=== PATIENT | female | born 1945 | race Caucasian/White ===

== ENCOUNTER 2020-08-23 16:37 | Inpatient (IN) ==
--- OUTSIDE RECORDS SUMMARY | 2020-08-23 16:40 | External Medical Summary | Continuity of Care Document ---
:1945 Author Name Gary Aguirre Address Unavailable Unavailable , Care Team Providers Name Role Phone Hitesh Aguirre Unavailable [email or web address] PCP, UNKNOWN Unavailable Unavailable Problems Active medical history not documented Allergies and Adverse Reactions Allergy history not documented Medications Medications not documented Procedures Procedures not documented Immunizations Immunizations not documented Plan of Treatment Planned Observations Planned Goals not documented Results No Known Results Results not documented
[2020-08-23 17:19] LABS: Basophils # (auto) 0.01 K/uL (0-0.2); Basophils % (auto) 0.1 %; Eosinophils # (auto) 0.08 K/uL (0-0.5); Eosinophils % (auto) 1.1 %; Hematocrit (blood only) 42.7 % (37-47); Hemoglobin 13.8 g/dL (12.0-16.0); Immature Granulocytes # (auto) 0.01 K/uL (0.00-0.02); Immature Granulocytes % (auto) 0.1 %; Lymphocytes # (auto) 1.56 K/uL (1.2-3.4); Lymphocytes % (auto) 22.2 %; Mean Corpuscular Hemoglobin 28.5 pg (25-34); Mean Corpuscular Hgb Conc 32.3 g/dL (32-36); Mean Corpuscular Volume 88.2 fL (80-100); Mean Platelet Volume 9.5 fL (7.4-10.4); Monocytes # (auto) 0.52 K/uL (0.11-0.59); Monocytes % (auto) 7.4 %; Neutrophils # (auto) 4.85 K/uL (1.4-6.5); Neutrophils % (auto) 69.1 %; Platelet Count 211 K/uL (130-400); RDW Coefficient of Variation 13.8 % (11.5-14.5); RDW Standard Deviation 44.6 fL (36.4-46.3); Red Blood Count 4.84 M/uL (4.2-5.4); White Blood Count 7.03 K/uL (4.8-10.8)
[2020-08-23 17:27] LABS: Alanine Aminotransferase 19 U/L (12-78); Albumin Level 3.9 gm/dl (3.4-5.0); Aspartate Aminotransferase 21 U/L (15-37); BUN Creatinine Ratio 24.4 (10-20); Blood Urea Nitrogen 18 mg/dl (7-18); Calcium 9.5 mg/dl (8.5-10.1); Carbon Dioxide 29 mmol/L (21-32); Chloride 107 mmol/L (98-107); Est GFR (African American) 95.6; Est GFR (Non-African American) 82.5; Glucose 97 mg/dl (70-99); Magnesium 1.9 mg/dl (1.8-2.4); Potassium 3.8 mmol/L (3.5-5.1); Sodium 142 mmol/L (136-145)
[2020-08-23 17:37] LABS: Albumin Globulin Ratio 1.3 (0.9-2); Alkaline Phosphatase 83 U/L (45-117); Bilirubin,Total 0.6 mg/dl (0.2-1); Globulin 3.1 gm/dl (2.5-4.0); Thyroid Stimulating Hormone 0.352 uIu/ml (0.300-4.500); Troponin I < 0.015 ng/ml (0-0.045)
--- NOTE | 2020-08-23 18:08 | Emergency Department Note ---
Impression & Plan Dizziness, Fall, Closed compression fracture of thoracic vertebra ED Provider Note INFORMANT: Patient ED PROVIDER(S): Mark Wilkins MD CHIEF COMPLAINT: Fall PLAN: Disposition: Admitted Condition: Good MEDICAL DECISION MAKING: Patient presented to emerge department because of a fall. She got dizzy when sh e got up. She fell backwards and landed on her back. She complains of thoracic back pain. The patient underwent a work-up. Her head CT was negative. Her CT scan of her thoracic spine was concerning for a T4 fracture without any cord related issues. ECG revealed a normal sinus rhythm. The patient's laboratory testing was unremarkable. The patient was treated with IV Dilaudid and Zofran. She was observed. She was feeling better. She was unsteady and required help from nursing getting up. The patient lives alone. She has stairs in her house to get to her bathroom. I discussed conservative management in the hospital due to the dizziness, fall and thoracic fracture. The patient felt comfortable. Her sister was very much in support. I did consult with of the [facility] service. The patient was evaluated for further management. Triage Nursing notes reviewed and agree them. Additional history obtained from patient's sister. Vital Signs: reviewed and remarkable for no significant abnormalities Differential diagnosis: Back contusion, compression fracture, rib fracture, benign positional vertigo, dehydration, hypovolemia, anemia, tumor, infection, hypoglycemia, electrolyte abnormalities, cardiac sources, intracerebral event, toxicologic, neurologic, as well as other pathologies. Diagnostics interpreted by me: ECG: Rate:70 Rhythm:Normal sinus [place]:Normal QRS:Normal ST segements:No elevation or depression Other:No PACs or PVCs Cardiac Monitoring: Cardiac monitoring ordered by me: The patient was placed on continuous cardiac monitoring and observed. It revealed a normal sinus rhythm at 75 beats per minute without ectopy or evidence of dysrhythmia. Imaging studies: Head CT: A noncontrast CT scan of the head was performed and was negative for tumor, fracture, intracranial hemorrhage, or other acute pathology. CT scan of the thoracic spine reveals a nondisplaced T4 compression fracture. Consultation(s): [facility] service HPI: The patient is a 75 year old female who presents to the Emergency Room with complaints of a fall. This started this afternoon and is from getting dizzy after standing up. The patient also notes the following associated symptoms, mild dizziness which resolved, low thoracic back pain. The patient has taken no medication for relieving factors. Current pain is rated as 4/10. Pt denies LOC, head injury, headache, fevers, chills, diaphoresis, visual changes, neck pain, chest pain, breathing difficulties, nausea, vomiting, abdominal pain, back pain, melena, hematochezia, urinary symptoms, numbness, weakness, lymphadenopathy, rash, or other complaints. ROS: See above HPI for pertinent positives & negatives. A total of 10 systems reviewed and were otherwise negative. PAST MEDICAL HISTORY:See Below, CVA, diabetes PAST SURGICAL HISTORY:See Below, FAMILY HISTORY:See Below SOCIAL HISTORY:See Below, lives alone HOME MEDICATIONS:See Below ALLERGIES:See Below VITALS:See Below PHYSICAL EXAMINATION: GENERAL: Awake, alert, uncomfortable-appearing, in no distress HENT: Normocephalic, atraumatic. Oropharynx unremarkable. EYES: Normal conjunctiva. Sclera non-icteric. NECK: Inspection normal. Non-tender. Supple. No nuchal rigidity. FROM. No masses. RESPIRATORY: Clear to auscultation. No wheezes. No rales. Normal respiratory effort. CARDIAC: Normal rate. Normal rhythm. No murmurs. No rubs. Extremities warm and well perfused. Pulses equal. No JVD. GI: Soft, non-distended. No tenderness to palpation. No rebound or guarding. No masses. RECTAL: Deferred. MUSCULOSKELETAL: Atraumatic. Chest examination reveals no tenderness. The back i s symmetrical on inspection without obvious abnormality. There is low midline thoracic tenderness and also right paraspinal thoracic tenderness. There is no CVA tenderness to palpation. No joint edema. LOWER EXTREMITIES: Calves are equal size bilaterally and non-tender. No edema. No discoloration. NEURO: Normal sensorium. No sensory or motor deficits noted. SKIN: No rash or jaundice noted. 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 Hyperlipidemia Hypothyroidism Macular degeneration Stroke (cerebrum) Uterine leiomyoma Surgical History History of cataract extraction with lens replacement b/l History of colonoscopy History of tubal ligation Family History Sister Diabetes Father Cancer Lung Diabetes Macular degeneration Mother Diabetes Macular degeneration Social History (Updated 08/23/20 @ 21:23 by Linda Ortega PA-C) Smoking Status: Never smoker Hx Alcohol Use: No Hx Substance Use: No Preferred Language: Azeri marital status: / Current Living Situation: Alone Feels Safe at Home: Yes Allergies Allergies Allergy/AdvReac Type Severity Reaction Status Date / Time simvastatin Allergy Unknown CAN'T Verified 08/23/20 19:33 REMEMBER Sulfa (Sulfonamide Allergy Unknown CAN'T Verified 08/23/20 19:33 Antibiotics) REMEMBER Home Meds Home Medications Medication Instructions Recorded Confirmed atorvastatin 40 mg PO HS 08/23/20 08/23/20 clonazepam 0.5 - 1 mg PO DAILY PRN 08/23/20 08/23/20 clopidogrel 75 mg PO DAILY 08/23/20 08/23/20 fluoride (sodium) [SF 5000 Plus] 1 applic DENTAL DAILY 08/23/20 08/23/20 fluoxetine 40 mg PO DAILY 08/23/20 08/23/20 gabapentin 300 mg PO HS 08/23/20 08/23/20 levothyroxine 112 mcg PO DAILYBB 08/23/20 08/23/20 lisinopril 5 mg PO DAILY 08/23/20 08/23/20 lorazepam 1 mg PO BID PRN 08/23/20 08/23/20 metformin 1,000 mg PO BIDM 08/23/20 08/23/20 triamcinolone acetonide 1 applic TOPICAL BID PRN 08/23/20 08/23/20 vit C,T-Af-nqqul-lutein-zeaxan 1 tab PO BID 08/23/20 08/23/20 [PreserVision AREDS-2] Results & Data (ED) Vital Signs Vital Signs - 24 hr 08/23/20 17:06 08/23/20 19:00 08/23/20 19:18 Temperature 36.9 C Temperature Source Oral Pulse Rate 69 Pulse Rate [Apical] 68 Respiratory Rate 18 18 Blood Pressure 171/82 H Blood Pressure [Right Arm] 125/75 Blood Pressure Mean 111 Blood Pressure Mean [Right Arm] 91 Pulse Oximetry 97 96 98 Oxygen Delivery Method Room Air Room Air Room Air Sepsis Recent Fever Within 48 Hours No Sepsis New/Unexplained Change in Mental Status No Sepsis Action Taken by Nursing No Action Required 08/23/20 21:11 08/23/20 22:19 Temperature Temperature Source Pulse Rate Pulse Rate [Apical] 72 66 Respiratory Rate 18 18 Blood Pressure Blood Pressure [Right Arm] 123/80 113/92 Blood Pressure Mean Blood Pressure Mean [Right Arm] 94 99 Pulse Oximetry 94 94 Oxygen Delivery Method Room Air Room Air Sepsis Recent Fever Within 48 Hours Sepsis New/Unexplained Change in Mental Status Sepsis Action Taken by Nursing Laboratory Data Result diagrams: 08/23/20 16:58 08/23/20 16:58 Lab Results 08/23/20 08/23/20 Range/Units 16:58 16:58 WBC 7.03 (4.8-10.8) K/uL RBC 4.84 (4.2-5.4) M/uL Hgb 13.8 (12.0-16.0) g/dL Hct 42.7 (37-47) % MCV 88.2 (80-100) fL MCH 28.5 (25-34) pg MCHC 32.3 (32-36) g/dL RDW Std Deviation 44.6 (36.4-46.3) fL RDW Coeff of Teresita 13.8 (11.5-14.5) % Plt Count 211 (130-400) K/uL MPV 9.5 (7.4-10.4) fL Immature Gran % (Auto) 0.1 % Neut % (Auto) 69.1 % Lymph % (Auto) 22.2 % [place] % (Auto) 7.4 % Eos % (Auto) 1.1 % Baso % (Auto) 0.1 % Neut # (Auto) 4.85 (1.4-6.5) K/uL Lymph # (Auto) 1.56 (1.2-3.4) K/uL [place] # (Auto) 0.52 (0.11-0.59) K/uL Eos # (Auto) 0.08 (0-0.5) K/uL Baso # (Auto) 0.01 (0-0.2) K/uL Immature Gran # (Auto) 0.01 (0.00-0.02) K/uL Sodium 142 (136-145) mmol/L Potassium 3.8 (3.5-5.1) mmol/L Chloride 107 (98-107) mmol/L Carbon Dioxide 29 (21-32) mmol/L Anion Gap 6.0 (3-11) BUN 18 (7-18) mg/dl Creatinine 0.72 (0.6-1.2) mg/dl Est Cr Clr Drug Dosing 74.0 ml/min Est GFR ( Amer) 95.6 Est GFR (Non-Af Amer) 82.5 BUN/Creatinine Ratio 24.4 H (10-20) Glucose 97 (70-99) mg/dl Calcium 9.5 (8.5-10.1) mg/dl Magnesium 1.9 (1.8-2.4) mg/dl Total Bilirubin 0.6 (0.2-1) mg/dl AST 21 (15-37) U/L ALT 19 (12-78) U/L Alkaline Phosphatase 83 (45-117) U/L Troponin I < 0.015 (0-0.045) ng/ml Total Protein 7.0 (6.4-8.2) gm/dl Albumin 3.9 (3.4-5.0) gm/dl Globulin 3.1 (2.5-4.0) gm/dl Albumin/Globulin Ratio 1.3 (0.9-2) TSH 0.352 (0.300-4.500) uIu/ml Administered Medications Hydromorphone HCl (Hydromorphone Inj 0.5 Mg/0.5 Ml Syr) 0.5 mg IV Q15M PRN PRN Reason: Pain Stop: 09/06/20 19:00 Last Admin: 08/23/20 19:17 Dose: 0.5 mg Documented by: [id number] Discontinued Medications Ondansetron HCl (Ondansetron Inj 2 Mg/Ml 2 Ml Vial) 4 mg IV NOW STA Stop: 08/23/20 19:02 Last Admin: 08/23/20 19:17 Dose: 4 mg Documented by: [id number] Discharge Plan Visit Data Chief Complaint: Fall Stated Complaint: FALL, LOWER BACK PAIN ED Provider: Mark Wilkins Discharge Problem: Dizziness, Fall, Closed compression fracture of thoracic vertebra Forms Stand Alone Forms: My [facility] Prescriptions Prescriptions: No Action fluoxetine 40 mg Capsule 40 mg PO DAILY RF: 0 atorvastatin 40 mg Tablet 40 mg PO HS RF: 0 clonazepam 0.5 mg Tablet 0.5 - 1 mg PO DAILY PRN (Reason: RESTLESS LEGS) RF: 0 clopidogrel 75 mg Tablet 75 mg PO DAILY RF: 0 triamcinolone acetonide 0.1 % Ointment 1 applic TOPICAL BID PRN (Reason: Skin Irritation) RF: 0 gabapentin 300 mg Capsule 300 mg PO HS RF: 0 lisinopril 5 mg Tablet 5 mg PO DAILY RF: 0 lorazepam 1 mg Tablet 1 mg PO BID PRN (Reason: Anxiety) RF: 0 metformin 500 mg Tablet Extended Release 24 Hr 1,000 mg PO BIDM RF: 0 levothyroxine 112 mcg Tablet 112 mcg PO DAILYBB RF: 0 fluoride (sodium) [SF 5000 Plus] 1.1 % Cream 1 applic DENTAL DAILY RF: 0 PreserVision AREDS-2 [id number] sh-aoax-sm-mg Capsule 1 tab PO BID RF: 0
--- NOTE | 2020-08-23 18:26 | CT Scan Report ---
CT OF THE HEAD WITHOUT CONTRAST CLINICAL HISTORY: Fall. Dizziness. COMPARISON STUDY: Head CT April 16, 2018. CT DOSE: 614.27 mGy.cm TECHNIQUE: Helical axial images of the head were obtained without IV contrast. Automated exposure con trol was utilized for the study. A dose lowering technique was utilized adhering to the principles o f ALARA. FINDINGS: No acute intracranial hemorrhage, midline shift or mass effect is present. Ventricular syst em is normal. Basilar cisterns are patent. There are no extra-axial collections. Old posterior left M CA territory infarct is noted. There are no findings to suggest acute dural sinus thrombosis or acute territorial infarct. Linear hyperdensity within a left sylvian branches unchanged. This is chronic. There is no calvarial fracture. There is a right scalp sebaceous cyst. IMPRESSION: 1. No acute intracranial findings. Old posterior left MCA territory infarct. 2. No calvarial fracture. ACT 112: Negative or not required by law. Electronically signed by: Pedro Dorman M.D. 08/23/2020 6:24 PM
--- NOTE | 2020-08-23 18:37 | CT Scan Report ---
CT OF THE THORACIC SPINE CLINICAL HISTORY: fall, lower thoracic and right paraspinal TTP COMPARISON STUDY: No previous studies for comparison. TECHNIQUE: Helical axial images of the thoracic spine were obtained. Sagittal and coronal reconstru ctions were viewed. Automated exposure control was utilized for the study. A dose lowering techniqu e was utilized adhering to the principles of ALARA. FINDINGS: Bilateral renal calculi measure up to 5 mm. There are gallstones within the gallbladder. Th ere is no evidence for acute cholecystitis. Visual portions of the lungs are unremarkable. There is d ilatation of the ascending aorta, measuring 4.3 cm. There are calcified thoracic lymph nodes. No acut e fractures are identified within visualized portions of the posterior ribs. There is extensive anter ior osteophytosis of the thoracic spine. Central canal and neural foramen are suboptimally assessed b y CT. There is a horizontal nondisplaced fracture through the mid aspect of the T4 vertebral body. No extension through the posterior elements is identified on this examination. This fracture is probabl y acute. No additional acute thoracic spine fractures are noted. There are no suspicious osseous lesi ons. IMPRESSION: 1. Nondisplaced horizontal fracture through the T4 vertebral body, likely acute. No extension into th e posterior elements. 2. Extensive anterior osteophytosis of the thoracic spine. 3. Ectatic ascending aorta, measuring 4.3 cm. 4. Bilateral nephrolithiasis. 5. Cholelithiasis. ACT 112: Negative or not required by law. Electronically signed by: Pedro Dorman M.D. 08/23/2020 6:36 PM
--- NOTE | 2020-08-23 18:51 | XRay Report ---
XR chest 1V portable CLINICAL HISTORY: weakness COMPARISON STUDY: Chest radiograph April 15, 2018. FINDINGS: Lung volumes are normal. Lungs are clear. There is no pneumothorax or pleural effusion. Mil d cardiomegaly is unchanged. Mediastinal contours are normal. There is no evidence for pulmonary shea a. There is probable calcific tendinitis of the left rotator cuff. IMPRESSION: No acute cardiopulmonary findings. No change in appearance of the chest. ACT 112: Negative or not required by law. Electronically signed by: Pedro Dorman M.D. 08/23/2020 6:50 PM
[2020-08-23] MEDS ORDERED: HYDROmorphone INJ 0.5 MG/0.5 ML SYR IV PRN (19:01)
[2020-08-23] MEDS ORDERED: ONDANSETRON INJ 2 MG/ML 2 ML VIAL IV STA (19:01)
[2020-08-23] MEDS ORDERED: NORMOSOL-R 1,000 ML IV ONE (20:38)
--- NOTE | 2020-08-23 21:26 | History & Physical Report ---
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 Pt was seen and examined in collaboration with Dr. Crane. I performed detailed history, med reconciliation and physical exam. Please see Dr. Crane addendum for details regarding assessment and plan. (4) HTN (hypertension): Blood pressure stable on lisinopril Check orthostatic blood pressures (5) History of CVA (cerebrovascular accident): hx of L MCA CVA with residual memory deficit, word finding continue plavix and statin (6) Diabetes: Last A1c 5.8 on 07/16/2020 Hold metformin Insulin protocol per Dr. Crane (7) Hypothyroidism: Continue levothyroxine (8) Depression: Continue Prozac and as needed lorazepam Patient with depression and anxiety (9) DVT prophylaxis: DVT ppx: Per Dr. Crane Disposition: per Dr. Crane Follow up: PCP Dr. Clifford upon discharge DNR History of Present Illness Chief Complaint: Fall prior to arrival. 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 She was sitting on the toilet whenever she stood up, turned and was trying to shut the window when she got lightheaded and dizzy and fell backwards on her back. She denies hitting her head and denies LOC. She states earlier today when she was sitting on the couch prior to going to the bathroom she also was lightheaded and, "woozy," when she went to stand up. She denies any other recent falls. She denies any recent illness. She denies fever, chills, sweats, chest pain, shortness breath, cough, hemoptysis, nausea, vomiting, diarrhea, abdominal pain, change in bowel or urinary habits. She denies any diaphoresis, nausea, chest pain, shortness with or palpitations associated with her lightheadedness. Currently she denies any pain sitting still. Pain is mostly whenever she moves. "After receiving pain medications I feel quite well." Overall she has a poor appetite. She does live alone. Her daughter is at bedside. Her daughter does elicit she has a prior history of CVA and does have some word finding difficulty and memory difficulty but otherwise no residual deficit. In ED patient made hemodynamically stable. CBC and CMP were generally unremarkable, mild elevation in BUN/creatinine ratio to 24.4. Thoracic CT revealed nondisplaced horizontal fracture through the T4 vertebral body, likely acute, extensive anterior osteophytosis of the thoracic spine, ectatic ascending aorta measuring 4.3 cm, cholelithiasis. Head CT was negative for any acute findings, old posterior left MCA CVA infarct noted. Chest x-ray revealed no acute cardiopulmonary findings. Allergies Allergy/AdvReac Type Severity Reaction Status Date / Time simvastatin Allergy Unknown CAN'T Verified 08/23/20 19:33 REMEMBER Sulfa (Sulfonamide Allergy Unknown CAN'T Verified 08/23/20 19:33 Antibiotics) REMEMBER Home Medications Home Medications Medication Instructions Recorded Confirmed Type atorvastatin 40 mg PO HS 08/23/20 08/23/20 History clonazepam 0.5 - 1 mg PO DAILY PRN 08/23/20 08/23/20 History clopidogrel 75 mg PO DAILY 08/23/20 08/23/20 History fluoride (sodium) [SF 5000 Plus] 1 applic DENTAL DAILY 08/23/20 08/23/20 History fluoxetine 40 mg PO DAILY 08/23/20 08/23/20 History gabapentin 300 mg PO HS 08/23/20 08/23/20 History levothyroxine 112 mcg PO DAILYBB 08/23/20 08/23/20 History lisinopril 5 mg PO DAILY 08/23/20 08/23/20 History lorazepam 1 mg PO BID PRN 08/23/20 08/23/20 History metformin 1,000 mg PO BIDM 08/23/20 08/23/20 History triamcinolone acetonide 1 applic TOPICAL BID PRN 08/23/20 08/23/20 History vit C,F-Ke-hlfbw-lutein-zeaxan 1 tab PO BID 08/23/20 08/23/20 History [PreserVision AREDS-2] Past Med/Surg History Medical History Anxiety Depression Diabetes Diverticulosis History of CVA (cerebrovascular accident) 2018 L MCA Hyperlipidemia Hypothyroidism Macular degeneration Stroke (cerebrum) Uterine leiomyoma Surgical History History of cataract extraction with lens replacement b/l History of colonoscopy History of tubal ligation Family History Sister Diabetes Father Cancer Lung Diabetes Macular degeneration Mother Diabetes Macular degeneration Social History (Updated 08/23/20 @ 21:23 by Linda Ortega PA-C) Smoking Status: Never smoker Hx Alcohol Use: No Hx Substance Use: No Preferred Language: Iraqi Communication Ability: Effective Beliefs That Will Affect Care: None marital status: / Current Living Situation: Alone Feels Safe at Home: Yes Assistive Devices: None Review of Systems Review of Systems: All systems reviewed & are unremarkable except as noted in HPI & below Physical Exam Physical Exam: Constitutional: WD/WN, vitals as above, NAD, sitting up in bed, pleasant, conversing easily Head: Normocephalic, Atraumatic Eyes: PERRL, conjunctivae normal, anicteric sclerae ENMT: external ear and nose normal, oropharynx normal Neck: trachea midline, no thyromegaly normal visual inspection Respiratory: normal respiratory effort, lungs clear to auscultation, no wheeze, rales, rhonchi. Normal insp/exp effort, no accessory muscle use Cardiovascular: RRR, 2/6 CLAUS noted LUSB, no edema Vessels: no JVD or carotid bruit Chest: normal inspection of chest Abdomen: normal bowel sounds, soft, nontender, no hepatosplenomegaly Musculoskeletal: no cyanosis or clubbing, extremities motor strength 5/5, pain to palpation along thoracic vertebral processes Skin: no rashes, warm and dry normal turgor Neurologic: PERRL, EOMI, accommodation nl, no face palsy, no dysarthria CN's II-XI intact bilaterally and moves all extremities Psychiatric: A+Ox3, euthymic affect Lymphatic: no cervical or axillary lymphadenopathy : deferred Results & Data Results & Data (MN) Vital Signs (Past 12 Hours) Vital Signs Temp Pulse Pulse Resp BP BP Pulse Ox 08/23/20 21:11 72 18 123/80 94 08/23/20 19:18 68 18 125/75 98 08/23/20 19:00 96 08/23/20 17:06 36.9 C 69 18 171/82 H 97 Laboratory Results Short CBC 08/23/20 Range/Units 16:58 WBC 7.03 (4.8-10.8) K/uL Hgb 13.8 (12.0-16.0) g/dL Hct 42.7 (37-47) % Plt Count 211 (130-400) K/uL BMP 08/23/20 16:58 Sodium 142 Potassium 3.8 Chloride 107 Carbon Dioxide 29 BUN 18 Creatinine 0.72 Glucose 97 Calcium 9.5 Cardiac Enzymes 08/23/20 Range/Units 16:58 Troponin I < 0.015 (0-0.045) ng/ml Liver Function 08/23/20 Range/Units 16:58 Total Bilirubin 0.6 (0.2-1) mg/dl AST 21 (15-37) U/L ALT 19 (12-78) U/L Alkaline Phosphatase 83 (45-117) U/L Albumin 3.9 (3.4-5.0) gm/dl Diagnostic Findings Thoracic Spine CT: FINDINGS: Bilateral renal calculi measure up to 5 mm. There are gallstones within the gallbladder. There is no evidence for acute cholecystitis. Visual portions of the lungs are unremarkable. There is dilatation of the ascending aorta, measuring 4.3 cm. There are calcified thoracic lymph nodes. No acute fractures are identified within visualized portions of the posterior ribs. There is extensive anterior osteophytosis of the thoracic spine. Central canal and neural foramen are suboptimally assessed by CT. There is a horizontal nondispla alexa fracture through the mid aspect of the T4 vertebral body. No extension through the posterior elements is identified on this examination. This fracture is probably acute. No additional acute thoracic spine fractures are noted. There are no suspicious osseous lesions. IMPRESSION: 1. Nondisplaced horizontal fracture through the T4 vertebral body, likely acute. No extension into the posterior elements. 2. Extensive anterior osteophytosis of the thoracic spine. 3. Ectatic ascending aorta, measuring 4.3 cm. 4. Bilateral nephrolithiasis. 5. Cholelithiasis. Head CT: IMPRESSION: 1. No acute intracranial findings. Old posterior left MCA territory infarct. 2. No calvarial fracture. CXR: IMPRESSION: No acute cardiopulmonary findings. No change in appearance of the chest. Medications Administered Hydromorphone HCl (Hydromorphone Inj 0.5 Mg/0.5 Ml Syr) 0.5 mg IV Q15M PRN PRN Reason: Pain Stop: 09/06/20 19:00 Last Admin: 08/23/20 19:17 Dose: 0.5 mg Documented by: [id number] Discontinued Medications Ondansetron HCl (Ondansetron Inj 2 Mg/Ml 2 Ml Vial) 4 mg IV NOW STA Stop: 08/23/20 19:02 Last Admin: 08/23/20 19:17 Dose: 4 mg Documented by: [id number] ECG Rate (beats per minute): 70 Rhythm: normal sinus Code Status & VTE Plan Code Status DNR/DNI VTE Prophylaxis Plan VTE Prophylaxis will be ordered: Yes Supervising Physician Co-Signing Physician Notes IM ATTENDING : Patient seen and examined. History obtained from patient, family, and records. Preceding documentation by Ms. Linda Ortega PA-C reviewed. FINAL ASSESSMENT AND PLAN as follows : Near syncope/dizziness possibly secondary to orthostasis Rule out cardiac dysfunction given appreciable murmur on auscultation Thoracic vertebral fracture secondary to fall Hypertension, BP currently stable Hyperlipidemia on statin Rx History CVA as per records Hypothyroidism, euthyroid as of recent outpatient TSH Mood disorder at baseline DM 2 on oral medications, well-controlled as of recent hemoglobin A1c of 5.23 June 2020 OBS Medical telemetry Check orthostatic vitals IVF TTE RE cardiac murmur Lidoderm patch for thoracic vertebral fracture PT OT eval ISS BG goal [id number] DVT prophylaxis. Lovenox subcu Full code Text document was generated using [employer] voice recognition software. It may contain grammatical or spelling errors. Kindly contact undersigned for clarification of any documentation item in question.
[2020-08-24] MEDS ORDERED: CARBOHYDRATES FOR HYPOGLYCEMIA PO PRN (00:17)
[2020-08-24] MEDS ORDERED: ACETAMINOPHEN 325 MG TAB PO PRN (00:17)
[2020-08-24] MEDS ORDERED: clonazePAM 0.5 MG TAB PO PRN (00:17)
[2020-08-24] MEDS ORDERED: LORazepam 1 MG TAB PO PRN (00:17)
[2020-08-24] MEDS ORDERED: traMADol HCL 50 MG TABLET PO PRN (00:17)
[2020-08-24] MEDS ORDERED: PROMETHAZINE HCL 12.5 MG in SODIUM CHLORIDE 0.9% 50 ML IV PRN (00:17)
[2020-08-24] MEDS ORDERED: GLUCOSE 10 TABS/TUBE PO PRN (00:17)
[2020-08-24] MEDS ORDERED: GLUCAGON FOR INJ 1 MG VIAL SQ PRN (00:17)
[2020-08-24] MEDS ORDERED: KETOROLAC TROMETHAMINE 15 MG/ML VIAL IV PRN (00:17)
[2020-08-24] MEDS ORDERED: GLUCOSE 40% GEL 15 GM TUBE PO PRN (00:17)
[2020-08-24] MEDS ORDERED: DEXTROSE 50% 50 ML SYRINGE IV PRN (00:17)
[2020-08-24] MEDS: LIDOCAINE 5% 1 PATCH TD SCH ×2 (01:57→16:46)
[2020-08-24] MEDS ORDERED: LEVOTHYROXINE SODIUM 112 MCG TABLET PO SCH (06:30)
[2020-08-24 06:35] LABS: Basophils # (auto) 0.02 K/uL (0-0.2); Basophils % (auto) 0.3 %; Eosinophils % (auto) 1.7 %; Hematocrit (blood only) 38.7 % (37-47); Hemoglobin 12.6 g/dL (12.0-16.0); Immature Granulocytes # (auto) 0.01 K/uL (0.00-0.02); Immature Granulocytes % (auto) 0.2 %; Lymphocytes # (auto) 1.65 K/uL (1.2-3.4); Lymphocytes % (auto) 27.5 %; Mean Corpuscular Hgb Conc 32.6 g/dL (32-36); Mean Platelet Volume 9.4 fL (7.4-10.4); Neutrophils # (auto) 3.61 K/uL (1.4-6.5); Neutrophils % (auto) 60.3 %; Platelet Count 191 K/uL (130-400); RDW Coefficient of Variation 13.8 % (11.5-14.5); RDW Standard Deviation 45.1 fL (36.4-46.3); Red Blood Count 4.35 M/uL (4.2-5.4); White Blood Count 5.99 K/uL (4.8-10.8)
[2020-08-24 07:00] LABS: BUN Creatinine Ratio 23.7 (10-20); Calcium 8.1 mg/dl (8.5-10.1); Creatinine Clr Calc Pharmacy 86.9 ml/min; Est GFR (African American) 103.5; Est GFR (Non-African American) 89.3; Potassium 3.7 mmol/L (3.5-5.1)
[2020-08-24] MEDS ORDERED: ENOXAPARIN INJ 30 MG/0.3 ML SYR SQ SCH (09:00)
[2020-08-24] MEDS ORDERED: CLOPIDOGREL BISULFATE 75 MG TAB PO SCH (09:00)
[2020-08-24] MEDS ORDERED: FLUoxetine HCL 20 MG CAP PO SCH (09:00)
[2020-08-24] MEDS ORDERED: lisinopriL 5 MG TAB PO SCH (09:00)
[2020-08-24] MEDS: INSULIN ASPART 100 UNITS/ML 3 ML PEN SC SCH ×2 (09:11→12:35)
--- NOTE | 2020-08-24 11:47 | Electrocardiogram Report ---
Test Reason : Blood Pressure : / mmHG Vent. Rate : 070 BPM Atrial Rate : 070 BPM P-R Int : 180 ms QRS Dur : 086 ms QT Int : 428 ms P-R-T Axes : -12 -04 029 degrees QTc Int : 462 ms Normal sinus rhythm Normal ECG When compared with ECG of 15-APR-2018 16:01, Premature atrial complexes are no longer Present Confirmed by Roe Red ([id number]) on 08/24/2020 11:46:39 AM Referred By: REFERRED SELF Confirmed By:Yusef Red
--- NOTE | 2020-08-24 16:35 | Hospitalist Progress Note ---
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 Near syncope/dizziness secondary to orthostasis Rule out cardiac dysfunction given appreciable murmur on auscultation Orthostatic blood pressures on admission, positive for orthostatic hypotension Repeat orthostatic vital signs after IV fluids normal Patient was observed on telemetry, remained in sinus rhythm Transthoracic echocardiogram obtained, shows mild aortic stenosis, moderate left ventricular hypertrophy, grade 1 diastolic dysfunction, EF 60 to 65%. Thoracic vertebral fracture secondary to fall Clinically pt much improved and wants to go home, denies much pain. Lidocaine patch applied, recommend to continue using lidocaine patch and Tylenol as needed (up 3000 mg a day). Evaluated by PT, per PT recommend to return home. (4) HTN (hypertension): Blood pressure stable on lisinopril Check orthostatic blood pressures Orthostatic blood pressures on admission, positive for orthostatic hypotension Repeat orthostatic vital signs after IV fluids normal (5) History of CVA (cerebrovascular accident): hx of L MCA CVA with residual memory deficit, word finding continue plavix and statin (6) Diabetes: Last A1c 5.8 on 07/16/2020 Hold metformin Insulin while inpt (7) Hypothyroidism: Continue levothyroxine (8) Depression: Continue Prozac and as needed lorazepam Patient with depression and anxiety (9) DVT prophylaxis: Follow up: PCP Dr. Clifford upon discharge DNR Admission and Anticipated Discharge Date Admission Date: August 23, 2020 Subjective Patient is sitting up in chair, in no acute distress. She denies any fevers, chills, chest pain, shortness of breath. She is no longer feeling dizzy. Her back pain is not bothering her very much either. She worked with physical therapy and it was recommended for her to return home. She was orthostatic on admission, repeat orthostatic vital signs negative, after IVF. Patient very much wants to go home. Sister at the bedside. Review of Systems Review of Systems: All systems reviewed & are unremarkable except as noted in HPI & below Constitutional: no fever, no chills and no fatigue Respiratory: no cough and no dyspnea Cardiovascular: no chest pain, no palpitations and no edema Gastrointestinal: no abdominal pain, no nausea and no vomiting Physical Exam Physical Exam: Constitutional: WD/WN, vitals as above, NAD, sitting up in chair, pleasant, conversing easily Head: Normocephalic, Atraumatic Eyes: PERRL, EOMI, conjunctivae normal, anicteric sclerae ENMT: external ear and nose normal, oropharynx normal Neck: trachea midline, no thyromegaly normal visual inspection Respiratory: normal respiratory effort, lungs clear to auscultation, no wheeze, rales, rhonchi. Normal insp/exp effort, no accessory muscle use Cardiovascular: RRR, 2/6 CLAUS noted LUSB, no edema Vessels: no JVD or carotid bruit Chest: normal inspection of chest Abdomen: normal bowel sounds, soft, nontender, no hepatosplenomegaly Musculoskeletal: no cyanosis or clubbing, extremities motor strength 5/5, pain to palpation along thoracic vertebral processes Skin: no rashes, warm and dry normal turgor Neurologic: PERRL, EOMI, accommodation nl, no face palsy, no dysarthria CN's II-XI intact bilaterally and moves all extremities Psychiatric: A+Ox3, euthymic affect Results & Data Results & Data ([facility]) Vital Signs (Past 12 Hours) Vital Signs Temp Pulse Pulse Resp BP Pulse Ox 08/24/20 15:25 37 C 65 20 103/64 92 08/24/20 11:11 37 C 63 19 115/69 94 08/24/20 08:00 57 L 08/24/20 07:23 36.9 C 63 19 113/65 93 Laboratory Results 08/24/20 08/24/20 08/24/20 Range/Units 16:35 11:32 07:41 WBC (4.8-10.8) K/uL RBC (4.2-5.4) M/uL Hgb (12.0-16.0) g/dL Hct (37-47) % MCV (80-100) fL MCH (25-34) pg MCHC (32-36) g/dL RDW Std Deviation (36.4-46.3) fL RDW Coeff of Teresita (11.5-14.5) % Plt Count (130-400) K/uL MPV (7.4-10.4) fL Immature Gran % (Auto) % Neut % (Auto) % Lymph % (Auto) % [place] % (Auto) % Eos % (Auto) % Baso % (Auto) % Neut # (Auto) (1.4-6.5) K/uL Lymph # (Auto) (1.2-3.4) K/uL [place] # (Auto) (0.11-0.59) K/uL Eos # (Auto) (0-0.5) K/uL Baso # (Auto) (0-0.2) K/uL Immature Gran # (Auto) (0.00-0.02) K/uL Sodium (136-145) mmol/L Potassium (3.5-5.1) mmol/L Chloride (98-107) mmol/L Carbon Dioxide (21-32) mmol/L Anion Gap (3-11) BUN (7-18) mg/dl Creatinine (0.6-1.2) mg/dl Est Cr Clr Drug Dosing ml/min Est GFR ( Amer) Est GFR (Non-Af Amer) BUN/Creatinine Ratio (-20) Glucose (70-99) mg/dl POC Glucose 100 H 133 H 89 (70-99) mg/dl Calcium (8.5-10.1) mg/dl Magnesium (1.8-2.4) mg/dl Total Bilirubin (0.2-1) mg/dl AST (15-37) U/L ALT (12-78) U/L Alkaline Phosphatase (45-117) U/L Troponin I (0-0.045) ng/ml Total Protein (6.4-8.2) gm/dl Albumin (3.4-5.0) gm/dl Globulin (2.5-4.0) gm/dl Albumin/Globulin Ratio (0.9-2) TSH (0.300-4.500) uIu/ml 08/24/20 08/24/20 08/23/20 Range/Units 05:55 05:55 16:58 WBC 5.99 (4.8-10.8) K/uL RBC 4.35 (4.2-5.4) M/uL Hgb 12.6 (12.0-16.0) g/dL Hct 38.7 (37-47) % MCV 89.0 (80-100) fL MCH 29.0 (25-34) pg MCHC 32.6 (32-36) g/dL RDW Std Deviation 45.1 (36.4-46.3) fL RDW Coeff of Teresita 13.8 (11.5-14.5) % Plt Count 191 (130-400) K/uL MPV 9.4 (7.4-10.4) fL Immature Gran % (Auto) 0.2 % Neut % (Auto) 60.3 % Lymph % (Auto) 27.5 % [place] % (Auto) 10.0 % Eos % (Auto) 1.7 % Baso % (Auto) 0.3 % Neut # (Auto) 3.61 (1.4-6.5) K/uL Lymph # (Auto) 1.65 (1.2-3.4) K/uL [place] # (Auto) 0.60 H (0.11-0.59) K/uL Eos # (Auto) 0.10 (0-0.5) K/uL Baso # (Auto) 0.02 (0-0.2) K/uL Immature Gran # (Auto) 0.01 (0.00-0.02) K/uL Sodium 144 142 (136-145) mmol/L Potassium 3.7 3.8 (3.5-5.1) mmol/L Chloride 107 107 (98-107) mmol/L Carbon Dioxide 32 29 (21-32) mmol/L Anion Gap 5.0 6.0 (3-11) BUN 15 18 (7-18) mg/dl Creatinine 0.61 0.72 (0.6-1.2) mg/dl Est Cr Clr Drug Dosing 86.9 74.0 ml/min Est GFR ( Amer) 103.5 95.6 Est GFR (Non-Af Amer) 89.3 82.5 BUN/Creatinine Ratio 23.7 H 24.4 H (10-20) Glucose 81 97 (70-99) mg/dl POC Glucose (70-99) mg/dl Calcium 8.1 L 9.5 (8.5-10.1) mg/dl Magnesium 1.9 (1.8-2.4) mg/dl Total Bilirubin 0.6 (0.2-1) mg/dl AST 21 (15-37) U/L ALT 19 (12-78) U/L Alkaline Phosphatase 83 (45-117) U/L Troponin I < 0.015 (0-0.045) ng/ml Total Protein 7.0 (6.4-8.2) gm/dl Albumin 3.9 (3.4-5.0) gm/dl Globulin 3.1 (2.5-4.0) gm/dl Albumin/Globulin Ratio 1.3 (0.9-2) TSH 0.352 (0.300-4.500) uIu/ml 08/23/20 Range/Units 16:58 WBC 7.03 (4.8-10.8) K/uL RBC 4.84 (4.2-5.4) M/uL Hgb 13.8 (12.0-16.0) g/dL Hct 42.7 (37-47) % MCV 88.2 (80-100) fL MCH 28.5 (25-34) pg MCHC 32.3 (32-36) g/dL RDW Std Deviation 44.6 (36.4-46.3) fL RDW Coeff of Teresita 13.8 (11.5-14.5) % Plt Count 211 (130-400) K/uL MPV 9.5 (7.4-10.4) fL Immature Gran % (Auto) 0.1 % Neut % (Auto) 69.1 % Lymph % (Auto) 22.2 % [place] % (Auto) 7.4 % Eos % (Auto) 1.1 % Baso % (Auto) 0.1 % Neut # (Auto) 4.85 (1.4-6.5) K/uL Lymph # (Auto) 1.56 (1.2-3.4) K/uL [place] # (Auto) 0.52 (0.11-0.59) K/uL Eos # (Auto) 0.08 (0-0.5) K/uL Baso # (Auto) 0.01 (0-0.2) K/uL Immature Gran # (Auto) 0.01 (0.00-0.02) K/uL Sodium (136-145) mmol/L Potassium (3.5-5.1) mmol/L Chloride (98-107) mmol/L Carbon Dioxide (21-32) mmol/L Anion Gap (3-11) BUN (7-18) mg/dl Creatinine (0.6-1.2) mg/dl Est Cr Clr Drug Dosing ml/min Est GFR ( Amer) Est GFR (Non-Af Amer) BUN/Creatinine Ratio (10-20) Glucose (70-99) mg/dl POC Glucose (70-99) mg/dl Calcium (8.5-10.1) mg/dl Magnesium (1.8-2.4) mg/dl Total Bilirubin (0.2-1) mg/dl AST (15-37) U/L ALT (12-78) U/L Alkaline Phosphatase (45-117) U/L Troponin I (0-0.045) ng/ml Total Protein (6.4-8.2) gm/dl Albumin (3.4-5.0) gm/dl Globulin (2.5-4.0) gm/dl Albumin/Globulin Ratio (0.9-2) TSH (0.300-4.500) uIu/ml
[2020-08-24] MEDS ORDERED: POTASSIUM CHLORIDE 20 MEQ TABCR PO STA (16:45)
--- NOTE | 2020-08-24 16:53 | Discharge Summary ---
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 She was sitting on the toilet whenever she stood up, turned and was trying to shut the window when she got lightheaded and dizzy and fell backwards on her back. She denies hitting her head and denies LOC. She states earlier today when she was sitting on the couch prior to going to the bathroom she also was lightheaded and, "woozy," when she went to stand up. She denies any other recent falls. She denies any recent illness. She denies fever, chills, sweats, chest pain, shortness breath, cough, hemoptysis, nausea, vomiting, diarrhea, abdominal pain, change in bowel or urinary habits. She denies any diaphoresis, nausea, chest pain, shortness with or palpitations associated with her lightheadedness. Currently she denies any pain sitting still. Pain is mostly whenever she moves. "After receiving pain medications I feel quite well." Overall she has a poor appetite. She does live alone. Her daughter is at bedside. Her daughter does elicit she has a prior history of CVA and does have some word finding difficulty and memory difficulty but otherwise no residual deficit. In ED patient made hemodynamically stable. CBC and CMP were generally unremarkable, mild elevation in BUN/creatinine ratio to 24.4. Thoracic CT revealed nondisplaced horizontal fracture through the T4 vertebral body, likely acute, extensive anterior osteophytosis of the thoracic spine, ectatic ascending aorta measuring 4.3 cm, cholelithiasis. Head CT was negative for any acute findings, old posterior left MCA CVA infarct noted. Chest x-ray revealed no acute cardiopulmonary findings. Admission Exam Per Admitting Provider Constitutional: WD/WN, vitals as above, NAD, sitting up in bed, pleasant, conversing easily Head: Normocephalic, Atraumatic Eyes: PERRL, conjunctivae normal, anicteric sclerae ENMT: external ear and nose normal, oropharynx normal Neck: trachea midline, no thyromegaly normal visual inspection Respiratory: normal respiratory effort, lungs clear to auscultation, no wheeze, rales, rhonchi. Normal insp/exp effort, no accessory muscle use Cardiovascular: RRR, 2/6 CLAUS noted LUSB, no edema Vessels: no JVD or carotid bruit Chest: normal inspection of chest Abdomen: normal bowel sounds, soft, nontender, no hepatosplenomegaly Musculoskeletal: no cyanosis or clubbing, extremities motor strength 5/5, pain to palpation along thoracic vertebral processes Skin: no rashes, warm and dry normal turgor Neurologic: PERRL, EOMI, accommodation nl, no face palsy, no dysarthria CN's II-XI intact bilaterally and moves all extremities Psychiatric: A+Ox3, euthymic affect Lymphatic: no cervical or axillary lymphadenopathy : deferred Principal Diagnosis Orthostatic hypotension Fracture of thoracic vertebra Discharge Exam Constitutional: WD/WN, vitals as above, NAD, sitting up in chair, pleasant, conversing easily Head: Normocephalic, Atraumatic Eyes: PERRL, EOMI, conjunctivae normal, anicteric sclerae ENMT: external ear and nose normal, oropharynx normal Neck: trachea midline, no thyromegaly normal visual inspection Respiratory: normal respiratory effort, lungs clear to auscultation, no wheeze, rales, rhonchi. Normal insp/exp effort, no accessory muscle use Cardiovascular: RRR, 2/6 CLAUS noted LUSB, no edema Vessels: no JVD or carotid bruit Chest: normal inspection of chest Abdomen: normal bowel sounds, soft, nontender, no hepatosplenomegaly Musculoskeletal: no cyanosis or clubbing, extremities motor strength 5/5, pain to palpation along thoracic vertebral processes Skin: no rashes, warm and dry normal turgor Neurologic: PERRL, EOMI, accommodation nl, no face palsy, no dysarthria CN's II-XI intact bilaterally and moves all extremities Psychiatric: A+Ox3, euthymic affect Discharge Data Allergies Allergy/AdvReac Type Severity Reaction Status Date / Time simvastatin Allergy Unknown CAN'T Verified 08/23/20 19:33 REMEMBER Sulfa (Sulfonamide Allergy Unknown CAN'T Verified 08/23/20 19:33 Antibiotics) REMEMBER Consultations 08/23/20 22:18 ED Decision to Admit Stat Ordered Studies 08/23/20 17:12 CT head/brain wo con Stat IMPRESSION: 1. No acute intracranial findings. Old posterior left MCA territory infarct. 2. No calvarial fracture. CT thoracic spine wo con Stat IMPRESSION: 1. Nondisplaced horizontal fracture through the T4 vertebral body, likely acute. No extension into the posterior elements. 2. Extensive anterior osteophytosis of the thoracic spine. 3. Ectatic ascending aorta, measuring 4.3 cm. 4. Bilateral nephrolithiasis. 5. Cholelithiasis. 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 Near syncope/dizziness secondary to orthostasis Rule out cardiac dysfunction given appreciable murmur on auscultation Orthostatic blood pressures on admission, positive for orthostatic hypotension Repeat orthostatic vital signs after IV fluids normal Patient was observed on telemetry, remained in sinus rhythm Transthoracic echocardiogram obtained, shows mild aortic stenosis, moderate left ventricular hypertrophy, grade 1 diastolic dysfunction, EF 60 to 65%. Thoracic vertebral fracture secondary to fall Clinically pt much improved and wants to go home, denies much pain. Lidocaine patch applied, recommend to continue using lidocaine patch and Tylenol as needed (up 3000 mg a day). Evaluated by PT, per PT recommend to return home. Ectatic ascending aorta, measuring 4.3 cm. -Incidental finding on CT -Follow-up as outpatient (4) HTN (hypertension): Blood pressure stable on lisinopril Check orthostatic blood pressures Orthostatic blood pressures on admission, positive for orthostatic hypotension Repeat orthostatic vital signs after IV fluids normal (5) History of CVA (cerebrovascular accident): hx of L MCA CVA with residual memory deficit, word finding continue plavix and statin (6) Diabetes: Last A1c 5.8 on 07/16/2020 Hold metformin Insulin while inpt (7) Hypothyroidism: Continue levothyroxine (8) Depression: Continue Prozac and as needed lorazepam Patient with depression and anxiety (9) DVT prophylaxis: Follow up: PCP Dr. Clifford upon discharge DNR Total Time Total Time Spent Total Time Spent (In Minutes): 40 Total Time Includes: Examination of the Patient, Discharge Planning, Medication Reconciliation and Communication With Other Providers Discharge Plan Discharge Items Patient Disposition: Home - Self-Care Reason For Visit: DIZZINESS, VERT FX Discharge Diagnosis: Orthostatic hypotension Fracture of thoracic vertebra Activity: Per Instructions section Lifting: None and Gradually increase as tolerated Non-emergency contact: Primary Care Provider Call non-emergency contact if: you have any medication questions and your symptoms worsen Follow-up/Referrals: Janice Freeman PA-C [Primary Care Provider] - Diet: Carb Consistent or DM2 and Heart Healthy Addtl Attending Provider Instructions: Follow-up with your family care doctor within 1 week. For pain take Tylenol up to 3000 mg a day, and also recommend lidocaine patch, this can be also obtained [id number], often under the name Salonpas. Discuss further with your primary care doctor if your pain is not sufficiently controlled. Pending Studies at Discharge: No Stand-Alone Forms: [facility] [employer], Smoking Cessation Medications and DC Order Prescriptions: New lidocaine 5 % Adhesive Patch,Medicated 1 patch transdermal DAILY@2100 15 Days Qty: 15 RF: 0 acetaminophen 325 mg Tablet 650 mg PO Q4H PRN (Reason: pain) Qty: 14 RF: 0 Continued fluoxetine 40 mg Capsule 40 mg PO DAILY RF: 0 atorvastatin 40 mg Tablet 40 mg PO HS RF: 0 clonazepam 0.5 mg Tablet 0.5 - 1 mg PO DAILY PRN (Reason: RESTLESS LEGS) RF: 0 clopidogrel 75 mg Tablet 75 mg PO DAILY RF: 0 triamcinolone acetonide 0.1 % Ointment 1 applic TOPICAL BID PRN (Reason: Skin Irritation) RF: 0 gabapentin 300 mg Capsule 300 mg PO HS RF: 0 lisinopril 5 mg Tablet 5 mg PO DAILY RF: 0 lorazepam 1 mg Tablet 1 mg PO BID PRN (Reason: Anxiety) RF: 0 metformin 500 mg Tablet Extended Release 24 Hr 1,000 mg PO BIDM RF: 0 levothyroxine 112 mcg Tablet 112 mcg PO DAILYBB RF: 0 fluoride (sodium) [SF 5000 Plus] 1.1 % Cream 1 applic DENTAL DAILY RF: 0 PreserVision AREDS-2 [id number] Capsule 1 tab PO BID RF: 0 Discharge Orders: Discharge Order (Routine); Ordered 08/24/20 Ordered By: Fareed Coombs Admission Data Admit Date/Time: 08/23/20 21:55 Attending Provider: Fareed Coombs Admit Provider: Kevin Crane Primary Care Provider: Janice Freeman Other Providers: Kevin Crane
[2020-08-24] MEDS ORDERED: ATORVASTATIN 40 MG TAB PO SCH (21:00)
[2020-08-24] MEDS ORDERED: GABAPENTIN 300 MG CAP PO SCH (21:00)
== END 2020-08-24 17:46 | disposition home or self-care (01) | DRG 552 ==
LOC: ED 16:37 → EDINP 21:55 → 2N 08-24 02:48

== ENCOUNTER 2022-07-04 10:04 | Inpatient (IN) ==
--- NOTE | 2022-07-04 11:16 | XRay Report ---
SINGLE VIEW CHEST CLINICAL HISTORY: Fall. Dizziness. FINDINGS: An AP, portable, upright chest radiograph is compared to study dated 08/23/2020. The examina tion is degraded by portable technique and patient rotation. The heart is mildly enlarged noting athe rosclerotic calcification of the thoracic aorta. The pulmonary vasculature is noncongested. Chronic i nterstitial thickening is similar to previous. Scarring/atelectasis is noted the lung bases. The lung s and pleural spaces are otherwise clear. No pneumothorax is seen. The skeletal structures are osteop enic. The bony thorax is grossly intact. Arthritic change is noted in the shoulders and spine. IMPRESSION: Cardiomegaly with no active disease in the chest. ACT 112: Negative or not required by law. Electronically signed by: Karsten Christy M.D. 07/04/2022 11:15 AM
--- NOTE | 2022-07-04 11:33 | Emergency Department Note ---
Impression & Plan Fall, Dizziness, History of CVA (cerebrovascular accident), SDH (subdural hematoma) ED Provider Note Provider: Alexandre Bauman MD DATE OF SERVICE: 07/04/2022 CHIEF COMPLAINT: Fall, dizzy HISTORY OF PRESENT ILLNESS: Patient is a 77-year-old female history of CVA with some mild resultant persistent aphasia, diabetes, BPPV, and hypertension presenting here today via ambulance from her home. Patient evidently over the last day or 2 has been feeling a little bit dizzy at times. This morning was going to get a cat Food to feed her cat and bent over and all of a sudden states she lost consciousness and fell to the side to the ground. Complains little bit of posterior head and neck pain. Does not believe she is on the floor very long but then awoke and slowly made her way on the floor to the phone to call her sister and for help. Patient planes little bit of mild low back pain. Denies injury to the extremities. Denies recent fever or chills. Denies nausea or vomiting. Denies significant chest pain or palpitations to me. She later tells me she intermittently has some tingling in her hands at times. REVIEW OF SYSTEMS: A total of 10 review of systems was obtained and negative except as stated above in the HPI. PAST MEDICAL HISTORY: As noted above MEDICATIONS: Reviewed home medication list SOCIAL HISTORY: Lives at home with cat, PHYSICAL EXAM: GENERAL: alert and oriented in no acute distress on stretcher Head: normocephalic and atraumatic EYES: No injection, discharge or icterus. PERRL, EOMI. NECK: Trachea midline. Supple. ENT: Mucous membranes pink and moist. Pharynx without erythema or exudate. TMs clear bilaterally. LUNGS: Airway patent. No retractions. Breath sounds clear with good air entry bilaterally. HEART: Regular rate and rhythm. No chest wall tenderness ABDOMEN: Soft and non-tender, without guarding or rebound. BACK: Mild lumbar tenderness. SKIN: Acyanotic, warm, dry, without rashes EXTREMITIES: Without swelling, tenderness or deformity NEUROLOGICAL: No focal deficits. No aphasia. No facial droop or slurred speech. Normal strength and tone in the extremities. Sensation to gross touch normal in extremities on my exam EK bpm normal sinus rhythm. No PVC or PAC. No acute ST segment elevation or depression with a QTC of 460. CONTINUOUS CARDIAC MONITORING: was ordered and showed a heart rate of 60s-70s bpm in normal sinus rhythm PDMP was checked without noted issue. GCS 15. Patient's laboratory studies and imaging reviewed. Differential includes traumatic, benign positional vertigo, dehydration, hypovolemia, anemia, tumor, infection, hypoglycemia, electrolyte abnormalities, cardiac sources, intracerebral event, toxicologic, neurologic, as well as other pathologies. IMPRESSION/MEDICAL DECISION MAKING: Patient presents after loss of consciousness with fall. Some mild head and neck pain and as well as lower lumbar pain. No acute neurological deficits in the extremities. Sister at bedside and states her mild amount aphasia is at baseline as well. No evidence of hemotympanum and or infection of the ears. Does not seem that positional in nature discussion with the patient. Basic labs were completed. CT of the head, cervical spine, lumbar spine given the fall and pain here were completed. I doubt spinal cord injury. Blood work here without anemia or leukocytosis. No significant electrolyte abnormalities signs of renal dysfunction. No evidence of hepatic dysfunction. No troponin elevation. CT of the cervical lumbar spine without acute findings. CT the head was called by radiology with the finding of a very small subdural hematoma. Discussed with patient and patient's sister at bedside. They do preference to stay here if possible. Discussed with neurology here Dr. Jackson who felt comfortable monitoring given the small size and will have the hospitalist evaluate for admission and monitoring overnight. Believe her dizziness is not likely secondary to the small subdural. Question some component of polyneuropathy given her reported complaints however can be further monitored here and have PT OT consultation. DIAGNOSIS: Fall, dizziness, SDH DISPOSITION: Hospitalist will evaluate Patient was agreeable with this plan and wished to stay here. Critical Care I have personally spent 31 minutes of critical care time in the direct management of this patient. This includes bedside care, interpretation of diagnostic studies, and testing, discussion with consultants, patient, and family members, and other required patient management activities. These 31 minutes is in excess of all separately billable procedures. Past Med/Surg History Medical History Anxiety Depression Diabetes Diverticulosis History of CVA (cerebrovascular accident) 2018 L MCA Hyperlipidemia Hypothyroidism Macular degeneration Mild vascular neurocognitive disorder Restless leg syndrome Stroke (cerebrum) Uterine leiomyoma Surgical History History of cataract extraction with lens replacement b/l History of colonoscopy History of tubal ligation Family History Sister Diabetes Father Cancer Lung Diabetes Macular degeneration Mother Diabetes Macular degeneration Social History Smoking Status: Never smoker Hx Alcohol Use: No Hx Substance Use: No Preferred Language: Swedish Communication Ability: Effective Beliefs That Will Affect Care: None marital status: / Current Living Situation: Alone Feels Safe at Home: Yes Assistive Devices: None Allergies Allergies Allergy/AdvReac Type Severity Reaction Status Date / Time simvastatin Allergy Unknown CAN'T Verified 08/23/20 19:33 REMEMBER Sulfa (Sulfonamide Allergy Unknown CAN'T Verified 08/23/20 19:33 Antibiotics) REMEMBER Home Meds Home Medications Medication Instructions Recorded Confirmed atorvastatin 40 mg tablet 40 mg PO HS 08/23/20 07/04/22 clonazepam 0.5 mg tablet 0.5 - 1 mg PO DAILY PRN RESTLESS 08/23/20 07/04/22 LEGS clopidogrel 75 mg tablet 75 mg PO DAILY 08/23/20 07/04/22 fluoride (sodium) 1.1 % dental 1 applic dental DAILY 08/23/20 07/04/22 cream (SF 5000 Plus) fluoxetine 40 mg capsule 40 mg PO DAILY 08/23/20 07/04/22 gabapentin 300 mg capsule 300 mg PO HS 08/23/20 07/04/22 levothyroxine 112 mcg tablet 112 mcg PO DAILYBB 08/23/20 07/04/22 lisinopril 5 mg tablet 5 mg PO DAILY 08/23/20 07/04/22 lorazepam 1 mg tablet 1 mg PO BID PRN Anxiety 08/23/20 07/04/22 metformin 500 mg tablet,extended 1,000 mg PO BIDM 08/23/20 07/04/22 release 24 hr triamcinolone acetonide 0.1 % 1 applic topical BID PRN Skin 08/23/20 07/04/22 topical ointment Irritation vit C 250 mg-vit E 90 mg-zinc 40 1 tab PO BID 08/23/20 07/04/22 mg-copper 1 [id number] capsule (PreserVision AREDS-2) alendronate 70 mg tablet 70 mg PO DAILY 07/04/22 07/04/22 Previous Rx's Medication Instructions Recorded acetaminophen 325 mg tablet 650 mg PO Q4H PRN pain #14 tabs 08/24/20 Results & Data (ED) Vital Signs Vital Signs - 24 hr 07/04/22 10:12 07/04/22 11:11 07/04/22 11:11 Temperature 36.7 C Temperature Source Oral Pulse Rate 69 Pulse Rhythm Regular Pulse Strength Normal Respiratory Rate 24 Respiratory Effort / Characteristics Non-Labored Spontaneous Respiratory Depth Normal Respiratory Pattern Regular Blood Pressure 171/90 H Blood Pressure Mean 117 Pulse Oximetry 95 Oxygen Delivery Method Room Air Room Air Room Air Sepsis Recent Fever Within 48 Hours No Sepsis New/Unexplained Change in Mental Status N/A Sepsis Action Taken by Nursing No Action Required Laboratory Data Result diagrams: 07/04/22 11:31 07/04/22 11:31 Lab Results 07/04/22 07/04/22 07/04/22 Range/Units 11:31 11:31 11:31 WBC 7.69 (4.8-10.8) K/ul RBC 5.12 (3.93-5.22) M/uL Hgb 14.1 (12.0-16.0) g/dl Hct 44.2 (34.1-44.9) % MCV 86.3 (80.0-100.0) fL MCH 27.5 (25.0-34.0) pg MCHC 31.9 L (32.0-36.0) g/dL RDW Std Deviation 44.0 (36.4-46.3) fL RDW Coeff of [place] 13.9 (11.5-14.5) % Plt Count 195 (130-400) K/uL MPV 9.2 L (9.4-12.3) fL Immature Gran % (Auto) 0.5 % Neut % (Auto) 78.4 % Lymph % (Auto) 12.7 % [place] % (Auto) 6.5 % Eos % (Auto) 1.2 % Baso % (Auto) 0.7 % Neut # (Auto) 6.03 (1.4-6.5) K/uL Lymph # (Auto) 0.98 L (1.2-3.4) K/uL [place] # (Auto) 0.50 (0.24-0.82) K/uL Eos # (Auto) 0.09 (0-0.50) K/uL Baso # (Auto) 0.05 (0-0.2) K/uL Immature Gran # (Auto) 0.04 H (0.00-0.02) K/uL PT 10.3 (9.0-12.0) Seconds INR 1.0 (0.9-1.1) Sodium 139 (136-145) mmol/L Potassium 4.1 (3.5-5.1) mmol/L Chloride 104 (98-107) mmol/L Carbon Dioxide 28 (21-32) mmol/L Anion Gap 7 (3-11) BUN 24 H (6-23) mg/dl Creatinine 0.73 (0.6-1.2) mg/dl Est Cr Clr Drug Dosing 81.1 ml/min Est GFR ( Amer) 92.7 ml/min Est GFR (Non-Af Amer) 80.0 ml/min BUN/Creatinine Ratio 32.9 H (10-20) Glucose 99 (70-99(Fasting)) mg/dl Calcium 8.7 (8.5-10.1) mg/dl Total Bilirubin 0.7 (0.2-1.0) mg/dl AST 18 (13-39) U/L ALT 11 (7-52) U/L Alkaline Phosphatase 78 (34-104) U/L Troponin I High Sens 6.4 (0-14) pg/ml Total Protein 6.7 (6.0-8.3) gm/dl Albumin 4.2 (3.4-5.0) gm/dl Globulin 2.5 (2.5-4.0) gm/dl Albumin/Globulin Ratio 1.7 (0.9-2) Urine Color Urine Appearance (Clear) Urine pH (4.5-7.5) Ur Specific [place] (1.000-1.030) Urine Protein (Negative) Urine Glucose (UA) (Negative) Urine Ketones (Negative) Urine Blood (Negative) Urine Nitrite (Negative) Urine Bilirubin (Negative) Urine Urobilinogen (Negative) Ur Leukocyte Esterase (Negative) Urine WBC (Auto) (0-5) /hpf Urine RBC (Auto) (0-4) /hpf U Hyaline Cast (Auto) (0-5) /lpf U Epithel Cells (Auto) (0-5) /lpf Urine Bacteria (Auto) (Negative) SARS-CoV-2, RNA, NAAT (NEGATIVE) 07/04/22 07/04/22 Range/Units 12:21 14:56 WBC (4.8-10.8) K/ul RBC (3.93-5.22) M/uL Hgb (12.0-16.0) g/dl Hct (34.1-44.9) % MCV (80.0-100.0) fL MCH (25.0-34.0) pg MCHC (32.0-36.0) g/dL RDW Std Deviation (36.4-46.3) fL RDW Coeff of Te[place] (11.5-14.5) % Plt Count (130-400) K/uL MPV (9.4-12.3) fL Immature Gran % (Auto) % Neut % (Auto) % Lymph % (Auto) % [place] % (Auto) % Eos % (Auto) % Baso % (Auto) % Neut # (Auto) (1.4-6.5) K/uL Lymph # (Auto) (1.2-3.4) K/uL [place] # (Auto) (0.24-0.82) K/uL Eos # (Auto) (0-0.50) K/uL Baso # (Auto) (0-0.2) K/uL Immature Gran # (Auto) (0.00-0.02) K/uL PT (9.0-12.0) Seconds INR (0.9-1.1) Sodium (136-145) mmol/L Potassium (3.5-5.1) mmol/L Chloride (98-107) mmol/L Carbon Dioxide (21-32) mmol/L Anion Gap (3-11) BUN (6-23) mg/dl Creatinine (0.6-1.2) mg/dl Est Cr Clr Drug Dosing ml/min Est GFR ( Amer) ml/min Est GFR (Non-Af Amer) ml/min BUN/Creatinine Ratio (10-20) Glucose (70-99(Fasting)) mg/dl Calcium (8.5-10.1) mg/dl Total Bilirubin (0.2-1.0) mg/dl AST (13-39) U/L ALT (7-52) U/L Alkaline Phosphatase (34-104) U/L Troponin I High Sens (0-14) pg/ml Total Protein (6.0-8.3) gm/dl Albumin (3.4-5.0) gm/dl Globulin (2.5-4.0) gm/dl Albumin/Globulin Ratio (0.9-2) Urine Color Yellow Urine Appearance Clear (Clear) Urine pH 7.5 (4.5-7.5) Ur Specific [place] 1.009 (1.000-1.030) Urine Protein Negative (Negative) Urine Glucose (UA) Negative (Negative) Urine Ketones Negative (Negative) Urine Blood Negative (Negative) Urine Nitrite Negative (Negative) Urine Bilirubin Negative (Negative) Urine Urobilinogen Negative (Negative) Ur Leukocyte Esterase 2+ H (Negative) Urine WBC (Auto) 5-10 H (0-5) /hpf Urine RBC (Auto) 0-4 (0-4) /hpf U Hyaline Cast (Auto) 1-5 (0-5) /lpf U Epithel Cells (Auto) 20-30 H (0-5) /lpf Urine Bacteria (Auto) Negative (Negative) SARS-CoV-2, RNA, NAAT NEGATIVE (NEGATIVE) Imaging Data Radiologist's Impression: Cervical Spine CT 07/04/22 10:48 CT SCAN OF THE CERVICAL SPINE CLINICAL HISTORY: Trauma. Fall. COMPARISON STUDY: No priors. TECHNIQUE: CT scan of the cervical spine is performed from the skull base to the upper thoracic spine. Images are reviewed in the axial, sagittal, and coronal planes. IV contrast was not administered for this examination. A dose lowering technique was utilized adhering to the principles of ALARA. CT DOSE: 2257.23 mGy.cm FINDINGS: Skeletal structures: The skeletal structures are well mineralized. There is no evidence of fracture or subluxation involving the cervical spine. Vertebral body height and alignment are maintained. There is straightening of the cervical lordosis. Small anterior osteophytes are seen throughout. There is absence of the right ring of C1, likely on a developmental basis. The odontoid process and lateral masses are intact. The atlantoaxial articulation is preserved noting productive degenerative change. The spinous processes appear intact. There is mild multilevel cervical spondylosis. Facet arthropathy is present at several levels. Intervertebral discs: There is mild to moderate disc space narrowing at C5-C6 and C6-C7. Central canal: Posterior disc osteophyte complexes are seen at all cervical levels between C3-C4 and and T1-T2. This likely contributes to multilevel acquired compromise of the central canal. Soft tissues: The prevertebral and paraspinous soft tissues are within normal limits. There is evidence of previous thyroidectomy. There is atherosclerotic calcification of the carotid bulbs. Calvarium: The visualized calvarium at the skull base appears intact. Brain parenchyma: Partially visualized brain parenchyma at the skull base is within normal limits. Sinuses and mastoids: Small air-fluid levels are noted in the sphenoid sinuses. The mastoid air cells are well pneumatized. Lung apices: Clear as visualized. IMPRESSION: 1. There is no evidence of fracture or subluxation involving the cervical spine. 2. Osteopenia with chronic and spondylotic change as above. ACT 112: Negative or not required by law. Electronically signed by: Karsten Christy M.D. 07/04/2022 12:[address] 07/04/22 10:48 CT lumbar spine wo con CLINICAL HISTORY: fall, pain TECHNIQUE: Multidetector row helical CT of the lumbar spine was performed without administration of intravenous contrast. Coronal and sagittal reformations were obtained. Automated dose lowering techniques and/or adjustment according to patient size were utilized for this exam. Comparison: None available at the time of this dictation. FINDINGS: For counting purposes, the last complete intervertebral disc space is considered L5-S1. No acute fractures are identified. Degenerative changes are noted in the visualized spine. Vertebral body alignment is within normal limits. Parapelvic cysts are noted on the left. Nonobstructive stones are seen bilaterally in the kidneys. Atherosclerosis is noted. IMPRESSION: Degenerative changes without evidence of acute bony injury. ACT 112: Negative or not required by law. Electronically signed by: Kalyan Hernandez M.D. 07/04/2022 12:18 PM Chest X-Ray 07/04/22 10:49 SINGLE VIEW CHEST CLINICAL HISTORY: Fall. Dizziness. FINDINGS: An AP, portable, upright chest radiograph is compared to study dated 08/23/2020. The examination is degraded by portable technique and patient rotation. The heart is mildly enlarged noting atherosclerotic calcification of the thoracic aorta. The pulmonary vasculature is noncongested. Chronic interstitial thickening is similar to previous. Scarring/atelectasis is noted the lung bases. The lungs and pleural spaces are otherwise clear. No pneumothorax is seen. The skeletal structures are osteopenic. The bony thorax is grossly intact. Arthritic change is noted in the shoulders and spine. IMPRESSION: Cardiomegaly with no active disease in the chest. ACT 112: Negative or not required by law. Electronically signed by: Karsten Christy M.D. 07/04/2022 11:[address] 07/04/22 10:49 CT head/brain wo con CLINICAL HISTORY: 77 years-old Female with fall, dizzy. Acute head injury s tatus post fall TECHNIQUE: Multiple axial CT images of the head were obtained without contrast. A dose lowering technique was utilized adhering to the principles of ALARA. COMPARISON: Head CT 11/23/2019 FINDINGS: Tiny acute subdural hematoma layers along the falx cerebri measuring less than 2 mm transversely. No acute intraparenchymal hemorrhage, midline shift, intracranial mass, hydrocephalus, territorial ischemia or abnormal extra-axial collection. Encephalomalacia related to chronic left MCA infarct. White matter hypodensities suggest chronic microvascular ischemic disease. The calvarium is intact. Hyperostosis frontalis interna. 3.8 cm subcutaneous contusion of the occipital scalp. Prior bilateral lens repair. Likely benign 1.1 cm calcified subcutaneous lesion of the right parietal scalp. The paranasal sinuses, mastoid air cells, and middle ear cavities are clear. IMPRESSION: 1. Trace acute subdural hematoma layers along the falx cerebri. No significant mass effect or midline shift. 2. Small contusion of the occipital scalp. No acute calvarial fracture. Findings were discussed with Dr. Bauman on 07/04/2022 at 12:15 PM. ACT 112: Negative or not required by law. The above report was generated using voice recognition software. It may contain grammatical, syntax or spelling errors. Electronically signed by: Riley Osorio M.D. 07/04/2022 12:18 PM Discharge Plan Visit Data Chief Complaint: Dizziness Stated Complaint: Lower Back Pain, Dizzy ED Provider: Alexandre Bauman Discharge Problem: Fall, Dizziness, History of CVA (cerebrovascular accident), SDH (subdural hematoma) Patient Disposition: Being Evaluated by Hospitalist Forms Stand Alone Forms: My [facility] Prescriptions Prescriptions: No Action fluoxetine 40 mg Capsule 40 mg PO DAILY atorvastatin 40 mg Tablet 40 mg PO HS clonazepam 0.5 mg Tablet 0.5 - 1 mg PO DAILY PRN (Reason: RESTLESS LEGS) clopidogrel 75 mg Tablet 75 mg PO DAILY triamcinolone acetonide 0.1 % Ointment 1 applic TOPICAL BID PRN (Reason: Skin Irritation) gabapentin 300 mg Capsule 300 mg PO HS lisinopril 5 mg Tablet 5 mg PO DAILY lorazepam 1 mg Tablet 1 mg PO BID PRN (Reason: Anxiety) metformin 500 mg Tablet Extended Release 24 Hr 1,000 mg PO BIDM levothyroxine 112 mcg Tablet 112 mcg PO DAILYBB fluoride (sodium) [SF 5000 Plus] 1.1 % Cream 1 applic DENTAL DAILY PreserVision AREDS-2 [id number]-mg Capsule 1 tab PO BID acetaminophen 325 mg Tablet 650 mg PO Q4H PRN (Reason: pain) Qty: 14 0RF alendronate 70 mg tablet 70 mg PO DAILY Referrals Referrals: Janice Freeman PA-C [Primary Care Provider] - : Fall Qualifiers: Encounter type: initial encounter Qualified Code(s): W19.XXXA - Unspecified fall, initial encounter
[2022-07-04 11:50] LABS: Basophils # (auto) 0.05 K/uL (0-0.2); Basophils % (auto) 0.7 %; Eosinophils # (auto) 0.09 K/uL (0-0.50); Eosinophils % (auto) 1.2 %; Hematocrit (blood only) 44.2 % (34.1-44.9); Hemoglobin 14.1 g/dl (12.0-16.0); Immature Granulocytes # (auto) 0.04 K/uL (0.00-0.02); Immature Granulocytes % (auto) 0.5 %; Lymphocytes # (auto) 0.98 K/uL (1.2-3.4); Lymphocytes % (auto) 12.7 %; Mean Corpuscular Hemoglobin 27.5 pg (25.0-34.0); Mean Corpuscular Hgb Conc 31.9 g/dL (32.0-36.0); Mean Corpuscular Volume 86.3 fL (80.0-100.0); Mean Platelet Volume 9.2 fL (9.4-12.3); Monocytes % (auto) 6.5 %; Neutrophils # (auto) 6.03 K/uL (1.4-6.5); Neutrophils % (auto) 78.4 %; Platelet Count 195 K/uL (130-400); RDW Coefficient of Variation 13.9 % (11.5-14.5); Red Blood Count 5.12 M/uL (3.93-5.22); White Blood Count 7.69 K/ul (4.8-10.8)
[2022-07-04 12:11] LABS: Albumin Globulin Ratio 1.7 (0.9-2); Albumin Level 4.2 gm/dl (3.4-5.0); BUN Creatinine Ratio 32.9 (10-20); Bilirubin,Total 0.7 mg/dl (0.2-1.0); Calcium 8.7 mg/dl (8.5-10.1); Creatinine Clr Calc Pharmacy 81.1 ml/min; Est GFR (African American) 92.7 ml/min; Globulin 2.5 gm/dl (2.5-4.0); Potassium 4.1 mmol/L (3.5-5.1); Total Protein 6.7 gm/dl (6.0-8.3)
[2022-07-04 12:16] LABS: Troponin I High Sensitivity 6.4 pg/ml (0-14)
[2022-07-04 12:17] LABS: Prothrombin Time 10.3 Seconds (9.0-12.0)
--- NOTE | 2022-07-04 12:21 | CT Scan Report ---
CT head/brain wo con CLINICAL HISTORY: 77 years-old Female with fall, dizzy. Acute head injury status post fall TECHNIQUE: Multiple axial CT images of the head were obtained without contrast. A dose lowering tech nique was utilized adhering to the principles of ALARA. COMPARISON: Head CT 11/23/2019 FINDINGS: Tiny acute subdural hematoma layers along the falx cerebri measuring less than 2 mm transversely. No acute intraparenchymal hemorrhage, midline shift, intracranial mass, hydrocephalus, territorial ische rhea or abnormal extra-axial collection. Encephalomalacia related to chronic left MCA infarct. White m atter hypodensities suggest chronic microvascular ischemic disease. The calvarium is intact. Hyperostosis frontalis interna. 3.8 cm subcutaneous contusion of the occipit al scalp. Prior bilateral lens repair. Likely benign 1.1 cm calcified subcutaneous lesion of the righ t parietal scalp. The paranasal sinuses, mastoid air cells, and middle ear cavities are clear. IMPRESSION: 1. Trace acute subdural hematoma layers along the falx cerebri. No significant mass effect or midline shift. 2. Small contusion of the occipital scalp. No acute calvarial fracture. Findings were discussed with Dr. Bauman on 07/04/2022 at 12:15 PM. ACT 112: Negative or not required by law. The above report was generated using voice recognition software. It may contain grammatical, syntax o r spelling errors. Electronically signed by: Riley Osorio M.D. 07/04/2022 12:18 PM
--- NOTE | 2022-07-04 12:21 | CT Scan Report ---
CT lumbar spine wo con CLINICAL HISTORY: fall, pain TECHNIQUE: Multidetector row helical CT of the lumbar spine was performed without administration of i ntravenous contrast. Coronal and sagittal reformations were obtained. Automated dose lowering techniq ues and/or adjustment according to patient size were utilized for this exam. Comparison: None available at the time of this dictation. FINDINGS: For counting purposes, the last complete intervertebral disc space is considered L5-S1. No acute fractures are identified. Degenerative changes are noted in the visualized spine. Vertebral body alignment is within normal limits. Parapelvic cysts are noted on the left. Nonobstructive stones are seen bilaterally in the kidneys. Atherosclerosis is noted. IMPRESSION: Degenerative changes without evidence of acute bony injury. ACT 112: Negative or not required by law. Electronically signed by: Kalyan Hernandez M.D. 07/04/2022 12:18 PM
--- NOTE | 2022-07-04 12:24 | CT Scan Report ---
CT SCAN OF THE CERVICAL SPINE CLINICAL HISTORY: Trauma. Fall. COMPARISON STUDY: No priors. TECHNIQUE: CT scan of the cervical spine is performed from the skull base to the upper thoracic spine . Images are reviewed in the axial, sagittal, and coronal planes. IV contrast was not administered fo r this examination. A dose lowering technique was utilized adhering to the principles of ALARA. CT DOSE: 2257.23 mGy.cm FINDINGS: Skeletal structures: The skeletal structures are well mineralized. There is no evidence of fracture o r subluxation involving the cervical spine. Vertebral body height and alignment are maintained. Ther e is straightening of the cervical lordosis. Small anterior osteophytes are seen throughout. There is absence of the right ring of C1, likely on a developmental basis. The odontoid process and lateral m asses are intact. The atlantoaxial articulation is preserved noting productive degenerative change. T he spinous processes appear intact. There is mild multilevel cervical spondylosis. Facet arthropathy is present at several levels. Intervertebral discs: There is mild to moderate disc space narrowing at C5-C6 and C6-C7. Central canal: Posterior disc osteophyte complexes are seen at all cervical levels between C3-C4 and and T1-T2. This likely contributes to multilevel acquired compromise of the central canal. Soft tissues: The prevertebral and paraspinous soft tissues are within normal limits. There is eviden ce of previous thyroidectomy. There is atherosclerotic calcification of the carotid bulbs. Calvarium: The visualized calvarium at the skull base appears intact. Brain parenchyma: Partially visualized brain parenchyma at the skull base is within normal limits. Sinuses and mastoids: Small air-fluid levels are noted in the sphenoid sinuses. The mastoid air cells are well pneumatized. Lung apices: Clear as visualized. IMPRESSION: 1. There is no evidence of fracture or subluxation involving the cervical spine. 2. Osteopenia with chronic and spondylotic change as above. ACT 112: Negative or not required by law. Electronically signed by: Karsten Christy M.D. 07/04/2022 12:22 PM
--- NOTE | 2022-07-04 13:22 | Electrocardiogram Report ---
Test Reason : Blood Pressure : / mmHG Vent. Rate : 067 BPM Atrial Rate : 067 BPM P-R Int : 178 ms QRS Dur : 076 ms QT Int : 436 ms P-R-T Axes : -24 -26 067 degrees QTc Int : 460 ms Poor data quality, interpretation may be adversely affected Normal sinus rhythm Low voltage QRS Inferior infarct , age undetermined Abnormal ECG When compared with ECG of 23-AUG-2020 17:02, T wave amplitude has decreased in Lateral leads Confirmed by Bladimir Mckeon ([id number]) on 07/04/2022 1:22:24 PM Referred By: REFERRED SELF Confirmed By:Bladimir Mckeon
--- NOTE | 2022-07-04 13:48 | History & Physical Report ---
Date of Service July 04, 2022 Assessment & Plan (1) SDH (subdural hematoma): Plan: 2 mm SDH without mass effect or midline shift on CT - ED spoke with neurology who recommended observation overnight with repeat imaging tomorrow. Pt and sister declined transfer to tertiary [facility] for neurosurgery eval at this point. - Admit to PCU, especially in view of recent dizziness - Repeat CT in AM - Labs in AM - Consult neurology for additional recommendations (2) Dizziness: Plan: Unclear etiology although may be due to hypoglycemia with limited oral intake yesterday - Monitor on telemetry for arrhythmia - Check orthostatic vital signs - 1 L of IVF due to poor oral intake yesterday, concern for dehydration (3) Fall: Plan: - PT/OT evals - Fall precautions (4) HTN (hypertension): (5) History of CVA (cerebrovascular accident): (6) Hypothyroidism: (7) Hyperlipidemia: (8) Diabetes: Plan: - Insulin sliding scale - hold Metformin - Accuchecks - A1c in AM (last one done on 01/15/22 was 6.0) - pt admits to missing Metformin PM dose frequently (9) Depression: (10) Anxiety: (11) Restless leg syndrome: Plan Continue other home medications as appropriate Pt seen and reviewed with collaborating physician, Dr. Sorto. Plan of care discussed and as outlined above. Code Status: Full code DVT Prophylaxis: SCDs (due to SDH would not use anticoagulation) Tina Alanis PA-C History of Present Illness Chief Complaint: Fall, dizziness Primary Care Provider: Janice Freeman PA-C This is a 77 y/o female with a PMH of DM2, prior CVA w/ residual expressive aphasia, HTN, dyslipidemia, hypothyroidism, depression, anxiety, and RLS who presents to the ED via EMS after a fall and syncopal episode at home. Pt reports that she started with dizziness yesterday described as "I felt like I was going to fall" - she tried to rest for the rest of the day and felt a little better before she went to bed. She does admit that she didn't eat much yesterday - checked her blood sugar but can't remember what it was. This morning, she felt okay when she woke up. She bent over to get cat food out of the cupboard and the next thing she remembers is waking up on the floor having fallen against the fridge. She crawled across the floor to the phone to call for help. In the ED, she was complaining of lower back pain - CT of spine was negative. However, CT of the head shows a 2 mm subdural hematoma. The possibility of transfer was discussed with the patient and her sister but they declined preferring to stay at [facility] if possible. The ED spoke with neurology loan operations manager who recommended admission for observation and repeat imaging tomorrow. Currently, pt's main complain is a posterior headache and lower back pain. She denies dizziness at present. No diplopia, chest pain, palpitations or SOB. No change in baseline expressive aphasia Allergies Allergy/AdvReac Type Severity Reaction Status Date / Time simvastatin Allergy Unknown CAN'T Verified 08/23/20 19:33 REMEMBER Sulfa (Sulfonamide Allergy Unknown CAN'T Verified 08/23/20 19:33 Antibiotics) REMEMBER Home Medications Medication Instructions Recorded Confirmed Type atorvastatin 40 mg tablet 40 mg PO HS 08/23/20 07/04/22 History clopidogrel 75 mg tablet 75 mg PO DAILY 08/23/20 07/04/22 History fluoxetine 40 mg capsule 40 mg PO DAILY 08/23/20 07/04/22 History gabapentin 300 mg capsule 300 mg PO HS 08/23/20 07/04/22 History levothyroxine 112 mcg tablet 112 mcg PO DAILYBB 08/23/20 07/04/22 History lisinopril 5 mg tablet 5 mg PO DAILY 08/23/20 07/04/22 History lorazepam 1 mg tablet 0.5 mg PO BID PRN Anxiety 08/23/20 07/04/22 History metformin 500 mg tablet,extended 1,000 mg PO BIDM 08/23/20 07/04/22 History release 24 hr vit C 250 mg-vit E 90 mg-zinc 40 1 tab PO BID 08/23/20 07/04/22 History mg-copper 1 [id number] capsule (PreserVision AREDS-2) acetaminophen 325 mg tablet 650 mg PO Q4H PRN pain #14 tabs 08/24/20 07/04/22 Rx alendronate 70 mg tablet 70 mg PO WK 07/04/22 07/04/22 History mirtazapine 15 mg tablet 15 mg PO HS 07/04/22 07/04/22 History mirtazapine 7.5 mg tablet 7.5 mg PO HS 07/04/22 07/04/22 History Past Med/Surg History Medical History Anxiety Depression Diabetes Diverticulosis History of CVA (cerebrovascular accident) 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 Hyperlipidemia Hypothyroidism Macular degeneration Mild vascular neurocognitive disorder Restless leg syndrome Stroke (cerebrum) Uterine leiomyoma Surgical History History of cataract extraction with lens replacement b/l History of colonoscopy History of tubal ligation Family History Sister Diabetes Father Cancer Lung Diabetes Macular degeneration Mother Diabetes Macular degeneration Social History Smoking Status: Never smoker Hx Alcohol Use: No Hx Substance Use: No Preferred Language: Greek Communication Ability: Effective Beliefs That Will Affect Care: None marital status: / Current Living Situation: Alone Feels Safe at Home: Yes Assistive Devices: None Review of Systems Review of Systems: All systems reviewed & are unremarkable except as noted in HPI & below Constitutional: no fever, no chills and no sweats Eyes: no diplopia and no worsening vision Ear, Nose, Mouth, Throat: no nasal congestion and no sore throat Respiratory: no cough, no dyspnea and no wheezing Cardiovascular: + lightheadedness and + syncope; no chest pain, no palpitations and no edema Gastrointestinal: no abdominal pain, no nausea, no vomiting and no diarrhea/loose stools Genitourinary: no dysuria and no hematuria Musculoskeletal: + back pain Integumentary: no rash and no yellowing of the skin Neurologic: as per Subjective / HPI Psychiatric: no depression and no anxiety Physical Exam Constitutional: well developed and well nourished; no acute distress Eyes: + anicteric sclerae, PERRL, normal accommodation and EOM intact bilaterally ENMT: external ear and nose normal, oropharynx normal Neck: trachea midline Respiratory: no respiratory distress and no labored breathing Auscultation: lungs clear to auscultation bilaterally; no rales, no rhonchi and no wheezes Cardiovascular: Rate/Rhythm: regular rate and regular rhythm Heart Sounds: + murmur Vessels: dorsalis pedis pulses present and radial pulses present Extremities: no pedal edema Gastrointestinal (Abdomen): Inspection/Auscultation: normal bowel sounds; abdomen not distended Percussion/Palpation: abdomen soft; abdomen nontender Musculoskeletal: Head/Neck/Chest: normocephalic and neck supple Strength 4/5 and equal bilateral UE and LE Skin: no jaundice Neurologic: moves all extremities; no focal motor deficits Speech / Cognition: + expressive aphasia (mild) Motor/Sensory: no fasciculations Cranial Nerves: PERRL, normal accommodation, EOM intact bilaterally, normal facial strength, tongue midline, able to rotate head bilaterally, able to elevate shoulders bilaterally and symmetric palate elevation Psychiatric: A+Ox3, euthymic affect Results & Data Results & Data ([facility]) Vital Signs (Past 12 Hours) Vital Signs Temp Pulse Resp BP Pulse Ox O2 Del Method 07/04/22 11:11 Room Air 07/04/22 11:11 Room Air 07/04/22 10:12 36.7 C 69 24 171/90 H 95 Room Air Laboratory Results Laboratory Results - last 24 hr 07/04/22 07/04/22 07/04/22 11:31 11:31 11:31 WBC 7.69 RBC 5.12 Hgb 14.1 Hct 44.2 MCV 86.3 MCH 27.5 MCHC 31.9 L RDW Std Deviation 44.0 RDW Coeff of Teresita 13.9 Plt Count 195 MPV 9.2 L Immature Gran % (Auto) 0.5 Neut % (Auto) 78.4 Lymph % (Auto) 12.7 [place] % (Auto) 6.5 Eos % (Auto) 1.2 Baso % (Auto) 0.7 Neut # (Auto) 6.03 Lymph # (Auto) 0.98 L [place] # (Auto) 0.50 Eos # (Auto) 0.09 Baso # (Auto) 0.05 Immature Gran # (Auto) 0.04 H PT 10.3 INR 1.0 Sodium 139 Potassium 4.1 Chloride 104 Carbon Dioxide 28 Anion Gap 7 BUN 24 H Creatinine 0.73 Est Cr Clr Drug Dosing 81.1 Est GFR ( Amer) 92.7 Est GFR (Non-Af Amer) 80.0 BUN/Creatinine Ratio 32.9 H Glucose 99 Calcium 8.7 Total Bilirubin 0.7 AST 18 ALT 11 Alkaline Phosphatase 78 Troponin I High Sens 6.4 Total Protein 6.7 Albumin 4.2 Globulin 2.5 Albumin/Globulin Ratio 1.7 SARS-CoV-2, RNA, NAAT 07/04/22 12:21 WBC RBC Hgb Hct MCV MCH MCHC RDW Std Deviation RDW Coeff of Teresita Plt Count MPV Immature Gran % (Auto) Neut % (Auto) Lymph % (Auto) [place] % (Auto) Eos % (Auto) Baso % (Auto) Neut # (Auto) Lymph # (Auto) [place] # (Auto) Eos # (Auto) Baso # (Auto) Immature Gran # (Auto) PT INR Sodium Potassium Chloride Carbon Dioxide Anion Gap BUN Creatinine Est Cr Clr Drug Dosing Est GFR ( Amer) Est GFR (Non-Af Amer) BUN/Creatinine Ratio Glucose Calcium Total Bilirubin AST ALT Alkaline Phosphatase Troponin I High Sens Total Protein Albumin Globulin Albumin/Globulin Ratio SARS-CoV-2, RNA, NAAT NEGATIVE Diagnostic Findings CT Head 07/04/22 - IMPRESSION:1. Trace acute subdural hematoma layers along the falx cerebri. No significant mass effect or midline shift. 2. Small contusion of the occipital scalp. No acute calvarial fracture. Chest X-ray 07/04/22 - IMPRESSION: Cardiomegaly with no active disease in the chest. CT Lumbar Spine 07/04/22 - IMPRESSION: Degenerative changes without evidence of acute bony injury. CT Cervical Spine 07/04/22 - IMPRESSION: 1. There is no evidence of fracture or subluxation involving the cervical spine. 2. Osteopenia with chronic and spondylotic change as above. Supervising Physician Co-Signing Physician Notes Attending Addendum: care coordinated with [] please refer to her notes for full details, I agree with her notes patient seen and examined, records reviewed by myself as well on exam, patient [] no other symptoms VS noted and reviewed oriented , not in distress, speaks in sentences with no effort nor accessory muscle use normal rate, regular rhythm, no murmurs clear breath sounds bilaterally non distended, soft, nontender no bipedal edema, erythema, warmth no neuro deficits WBC Hg Crea ASSESSMENT AND PLAN other diagnoses and plan of care as per [] Benedicto Sorto MD (1) Fall Encounter type: initial encounter Qualified Code(s): W19.XXXA - Unspecified fall, initial encounter
[2022-07-04 16:27] LABS: Appearance Urine Clear (Clear); Bacteria Urine Automated Negative (Negative); Bilirubin Urine Negative (Negative); Blood Urine Negative (Negative); Color Urine Yellow; Epithelial Cell Urine Auto 20-30 /lpf (0-5); Glucose Urine UA Negative (Negative); Ketones Urine Negative (Negative); Leukocyte Esterase Urine 2+ (Negative); Nitrite Urine Negative (Negative); Protein Urine Negative (Negative); RBC Urine Automated 0-4 /hpf (0-4); Specific Gravity Urine 1.009 (1.000-1.030); Urobilinogen Urine Negative (Negative); pH Urine 7.5 (4.5-7.5)
--- NOTE | 2022-07-04 17:10 | Neurology Consultation ---
Date of Consultation July 04, 2022 Assessment & Plan (1) SDH (subdural hematoma): Small parafalcine hyperdensity, c/w SDH. Traumatic. (2) Fall: The patient feel down with head trauma. (3) Dizziness: Probably post-traumatic. ? canalith detachment. Has history of near syncope. ? postural hypotension, dysrhythmia. Plan ASSESSMENT and PLAN: 1/ Fall with head trauma and small SDH. Impression: This is likely a mechanical fall. However syncope is in differential. Due to having CVA in the past and non-witnessed event, we should rule out epileptogenic etiology as well. Some EKG changes is reported with history of near syncope, so, we should search for dysrhythmia and postural hypotension. Obviously DM can cause autonomic dysfunction. Recommendation: --Admit to hospital for 48 hrs observation. --Telemetry monitoring. --Repeat HCT w/o contrast in 24 hrs. If the patient stays stable clinically we will not repeat HCT unless repeat HCT shows enlargement. --Hold Plavix for 3 days and restart if repeat HCT is stable. --EEG routine. If it cannot be done until discharge, schedule it as outpatient with f/u at neurology clinic. --PT/OT evaluation. --Fall precautions --OK to start on DVT prophylaxis if f/u HCT shows no enlargement of SDH. 2/ Dizziness: Impression: Postural hypotension vs dysautonomia vs dysrhythmia. Recommendations: --Telemetry --Check orthostatics --Good hydration --Monitor BS --Ask PT for Erskine-Hallpike maneuver to rule out BPPV. Thank you for the consultation. History of Present Illness Reason for Consultation: SDH, fall, dizziness Requesting Physician: Alexandre Bauman MD Attending Physician: Susi Alanis MD History of Present Illness The patient is a 77-year-old pleasant female, who was brought to emergency department this morning, after she fell down with questionable loss of consciousness. 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 She reports that she has been having episodes of lightheadedness and dizziness for last couple of days. 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 Initially she reported questionable loss of consciousness, but now, she denies any loss of consciousness, tongue biting, tonic-clonic activity, urinary incontinence during the event. She reports that she hit her head couple days ago in her house, but did not seek medical attention. She was having difficulty standing up after falling down this morning. She called her sister, and eventually, she was brought to emergency department. She has not had any additional neurological deficit. She has been on daily Plavix and statin for secondary stroke prevention. She has been compliant. Head CT in the emergency department showed small parafalcine hyperintensity, consistent with small subdural hematoma. The patient declined transfer to another hospital for further care. Initially, she was having moderately severe headache, which has been improved some since this morning. The patient denies being on new medication or dosage adjustment. She has been on low-dose lisinopril for hypertension. Couple years ago, the patient had a near syncopal episode, which was investigated in the hospital. Since then , she has been doing well, other than occasional posture change induced dizziness. She has diabetes mellitus. She denies symptoms to suggest hypoglycemia. In emergency department, the patient's blood pressure was slightly elevated. EKG showed some abnormalities, suggestive of old cardiac ischemic event. Cardiac monitoring has been showing sinus rhythm. The patient denies having seizure or seizure-like activities in the past. I have reviewed the patient's chart and visualized imaging studies personally. I have discussed the case with the patient and emergency department physician. I have answered the patient's questions in detail. Allergies Allergy/AdvReac Type Severity Reaction Status Date / Time simvastatin Allergy Unknown CAN'T Verified 08/23/20 19:33 REMEMBER Sulfa (Sulfonamide Allergy Unknown CAN'T Verified 08/23/20 19:33 Antibiotics) REMEMBER Home Medications Medication Instructions Recorded Confirmed Type atorvastatin 40 mg tablet 40 mg PO HS 08/23/20 07/04/22 History clopidogrel 75 mg tablet 75 mg PO DAILY 08/23/20 07/04/22 History fluoxetine 40 mg capsule 40 mg PO DAILY 08/23/20 07/04/22 History gabapentin 300 mg capsule 300 mg PO HS 08/23/20 07/04/22 History levothyroxine 112 mcg tablet 112 mcg PO DAILYBB 08/23/20 07/04/22 History lisinopril 5 mg tablet 5 mg PO DAILY 08/23/20 07/04/22 History lorazepam 1 mg tablet 1 mg PO BID PRN Anxiety 08/23/20 07/04/22 History metformin 500 mg tablet,extended 1,000 mg PO BIDM 08/23/20 07/04/22 History release 24 hr vit C 250 mg-vit E 90 mg-zinc 40 1 tab PO BID 08/23/20 07/04/22 History mg-copper 1 [id number] capsule (PreserVision AREDS-2) acetaminophen 325 mg tablet 650 mg PO Q4H PRN pain #14 tabs 08/24/20 07/04/22 Rx alendronate 70 mg tablet 70 mg PO DAILY 07/04/22 07/04/22 History mirtazapine 15 mg tablet 15 mg PO HS 07/04/22 07/04/22 History mirtazapine 7.5 mg tablet 7.5 mg PO HS 07/04/22 07/04/22 History Patient History Medical History Anxiety Depression Diabetes Diverticulosis History of CVA (cerebrovascular accident) 2017 MCA Hyperlipidemia Hypothyroidism Macular degeneration Mild vascular neurocognitive disorder Restless leg syndrome Stroke (cerebrum) Uterine leiomyoma Surgical History History of cataract extraction with lens replacement b/l History of colonoscopy History of tubal ligation Family History Sister Diabetes Father Cancer Lung Diabetes Macular degeneration Mother Diabetes Macular degeneration Social History Smoking Status: Never smoker Hx Alcohol Use: No Hx Substance Use: No Preferred Language: Albanian Communication Ability: Effective Beliefs That Will Affect Care: None marital status: / Current Living Situation: Alone Feels Safe at Home: Yes Assistive Devices: None Review of Systems Review of Systems: All systems reviewed & are unremarkable except as noted in HPI & below Physical Exam Physical Exam: General Examination: Constitutional: Well developed person in no acute distress. HENT: Normal exam with inspection. CV: Hearth rhythm is regular. Neck: Supple, no carotid bruits. Lungs: Non-labored and comfortable breathing. Abdomen: Soft, non-tender, non-distended. Skin: No rash or ecchymosis. Extremities: No edema or cyanosis NEUROLOGICAL EXAMINATION: Mental Status: Alert and oriented to place, person and time. Cranial Nerves: II-XII are intact. No nystagmus. Funduscopy: Normal looking optic discs. Motor: 5-/5 in all extremities without asymmetry. DTR's: 2+ in upper and lower extremities other than 1+ in ankles. plantar reflexes are bilaterally down-going. Tone: Normal without spasticity or rigidity. Sensory: Intact to all sensory modalities other than decreased vibratory sensation in feet Coordination: No dysmetria with FTN testing. Speech: Fluent with slight word-finding difficulty. Comprehension is intact. Gait: Not assessed. Musculoskeletal: Normal muscle bulk, no atrophy. High arches in feet. Results & Data ([facility]) Vital Signs (Past 12 Hours) Vital Signs Temp Pulse Pulse Resp BP BP Pulse Ox 07/04/22 16:00 62 22 144/80 H 97 07/04/22 11:11 07/04/22 11:11 07/04/22 10:12 36.7 C 69 24 171/90 H 95 O2 Del Method 07/04/22 16:00 Room Air 07/04/22 11:11 Room Air 07/04/22 11:11 Room Air 07/04/22 10:12 Room Air Laboratory Results Laboratory Results - last 24 hr 07/04/22 07/04/22 07/04/22 11:31 11:31 11:31 WBC 7.69 RBC 5.12 Hgb 14.1 Hct 44.2 MCV 86.3 MCH 27.5 MCHC 31.9 L RDW Std Deviation 44.0 RDW Coeff of Teresita 13.9 Plt Count 195 MPV 9.2 L Immature Gran % (Auto) 0.5 Neut % (Auto) 78.4 Lymph % (Auto) 12.7 [place] % (Auto) 6.5 Eos % (Auto) 1.2 Baso % (Auto) 0.7 Neut # (Auto) 6.03 Lymph # (Auto) 0.98 L [place] # (Auto) 0.50 Eos # (Auto) 0.09 Baso # (Auto) 0.05 Immature Gran # (Auto) 0.04 H PT 10.3 INR 1.0 Sodium 139 Potassium 4.1 Chloride 104 Carbon Dioxide 28 Anion Gap 7 BUN 24 H Creatinine 0.73 Est Cr Clr Drug Dosing 81.1 Est GFR ( Amer) 92.7 Est GFR (Non-Af Amer) 80.0 BUN/Creatinine Ratio 32.9 H Glucose 99 Calcium 8.7 Total Bilirubin 0.7 AST 18 ALT 11 Alkaline Phosphatase 78 Troponin I High Sens 6.4 Total Protein 6.7 Albumin 4.2 Globulin 2.5 Albumin/Globulin Ratio 1.7 Urine Color Urine Appearance Urine pH Ur Specific [place] Urine Protein Urine Glucose (UA) Urine Ketones Urine Blood Urine Nitrite Urine Bilirubin Urine Urobilinogen Ur Leukocyte Esterase Urine WBC (Auto) Urine RBC (Auto) U Hyaline Cast (Auto) U Epithel Cells (Auto) Urine Bacteria (Auto) SARS-CoV-2, RNA, NAAT 07/04/22 07/04/22 12:21 14:56 WBC RBC Hgb Hct MCV MCH MCHC RDW Std Deviation RDW Coeff of Teresita Plt Count MPV Immature Gran % (Auto) Neut % (Auto) Lymph % (Auto) [place] % (Auto) Eos % (Auto) Baso % (Auto) Neut # (Auto) Lymph # (Auto) [place] # (Auto) Eos # (Auto) Baso # (Auto) Immature Gran # (Auto) PT INR Sodium Potassium Chloride Carbon Dioxide Anion Gap BUN Creatinine Est Cr Clr Drug Dosing Est GFR ( Amer) Est GFR (Non-Af Amer) BUN/Creatinine Ratio Glucose Calcium Total Bilirubin AST ALT Alkaline Phosphatase Troponin I High Sens Total Protein Albumin Globulin Albumin/Globulin Ratio Urine Color Yellow Urine Appearance Clear Urine pH 7.5 Ur Specific [place] 1.009 Urine Protein Negative Urine Glucose (UA) Negative Urine Ketones Negative Urine Blood Negative Urine Nitrite Negative Urine Bilirubin Negative Urine Urobilinogen Negative Ur Leukocyte Esterase 2+ H Urine WBC (Auto) 5-10 H Urine RBC (Auto) 0-4 U Hyaline Cast (Auto) 1-5 U Epithel Cells (Auto) 20-30 H Urine Bacteria (Auto) Negative SARS-CoV-2, RNA, NAAT NEGATIVE Diagnostic Findings Cervical Spine CT 07/04/22 10:48 CT SCAN OF THE CERVICAL SPINE CLINICAL HISTORY: Trauma. Fall. COMPARISON STUDY: No priors. TECHNIQUE: CT scan of the cervical spine is performed from the skull base to the upper thoracic spine. Images are reviewed in the axial, sagittal, and coronal planes. IV contrast was not administered for this examination. A dose lowering technique was utilized adhering to the principles of ALARA. CT DOSE: 2257.23 mGy.cm FINDINGS: Skeletal structures: The skeletal structures are well mineralized. There is no evidence of fracture or subluxation involving the cervical spine. Vertebral body height and alignment are maintained. There is straightening of the cervical lordosis. Small anterior osteophytes are seen throughout. There is absence of the right ring of C1, likely on a developmental basis. The odontoid process and lateral masses are intact. The atlantoaxial articulation is preserved noting productive degenerative change. The spinous processes appear intact. There is mild multilevel cervical spondylosis. Facet arthropathy is present at several levels. Intervertebral discs: There is mild to moderate disc space narrowing at C5-C6 and C6-C7. Central canal: Posterior disc osteophyte complexes are seen at all cervical levels between C3-C4 and and T1-T2. This likely contributes to multilevel acquired compromise of the central canal. Soft tissues: The prevertebral and paraspinous soft tissues are within normal limits. There is evidence of previous thyroidectomy. There is atherosclerotic calcification of the carotid bulbs. Calvarium: The visualized calvarium at the skull base appears intact. Brain parenchyma: Partially visualized brain parenchyma at the skull base is within normal limits. Sinuses and mastoids: Small air-fluid levels are noted in the sphenoid sinuses. The mastoid air cells are well pneumatized. Lung apices: Clear as visualized. IMPRESSION: 1. There is no evidence of fracture or subluxation involving the cervical spine. 2. Osteopenia with chronic and spondylotic change as above. ACT 112: Negative or not required by law. Electronically signed by: Karsten Christy M.D. 07/04/2022 12:[address] 07/04/22 10:48 CT lumbar spine wo con CLINICAL HISTORY: fall, pain TECHNIQUE: Multidetector row helical CT of the lumbar spine was performed without administration of intravenous contrast. Coronal and sagittal reformations were obtained. Automated dose lowering techniques and/or adjustment according to patient size were utilized for this exam. Comparison: None available at the time of this dictation. FINDINGS: For counting purposes, the last complete intervertebral disc space is considered L5-S1. No acute fractures are identified. Degenerative changes are noted in the visualized spine. Vertebral body alignment is within normal limits. Parapelvic cysts are noted on the left. Nonobstructive stones are seen bilaterally in the kidneys. Atherosclerosis is noted. IMPRESSION: Degenerative changes without evidence of acute bony injury. ACT 112: Negative or not required by law. Electronically signed by: Kalyan Hernandez M.D. 07/04/2022 12:18 PM Chest X-Ray 07/04/22 10:49 SINGLE VIEW CHEST CLINICAL HISTORY: Fall. Dizziness. FINDINGS: An AP, portable, upright chest radiograph is compared to study dated 08/23/2020. The examination is degraded by portable technique and patient rotation. The heart is mildly enlarged noting atherosclerotic calcification of the thoracic aorta. The pulmonary vasculature is noncongested. Chronic interstitial thickening is similar to previous. Scarring/atelectasis is noted the lung bases. The lungs and pleural spaces are otherwise clear. No pneumothorax is seen. The skeletal structures are osteopenic. The bony thorax is grossly intact. Arthritic change is noted in the shoulders and spine. IMPRESSION: Cardiomegaly with no active disease in the chest. ACT 112: Negative or not required by law. Electronically signed by: Karsten Christy M.D. 07/04/2022 11:[address] 07/04/22 10:49 CT head/brain wo con CLINICAL HISTORY: 77 years-old Female with fall, dizzy. Acute head injury status post fall TECHNIQUE: Multiple axial CT images of the head were obtained without contrast. A dose lowering technique was utilized adhering to the principles of ALARA. COMPARISON: Head CT 11/23/2019 FINDINGS: Tiny acute subdural hematoma layers along the falx cerebri measuring less than 2 mm transversely. No acute intraparenchymal hemorrhage, midline shift, intracranial mass, hydrocephalus, territorial ischemia or abnormal extra-axial collection. Encephalomalacia related to chronic left MCA infarct. White matter hypodensities suggest chronic microvascular ischemic disease. The calvarium is intact. Hyperostosis frontalis interna. 3.8 cm subcutaneous contusion of the occipital scalp. Prior bilateral lens repair. Likely benign 1.1 cm calcified subcutaneous lesion of the right parietal scalp. The paranasal sinuses, mastoid air cells, and middle ear cavities are clear. IMPRESSION: 1. Trace acute subdural hematoma layers along the falx cerebri. No significant mass effect or midline shift. 2. Small contusion of the occipital scalp. No acute calvarial fracture. Findings were discussed with Dr. Bauman on 07/04/2022 at 12:15 PM. ACT 112: Negative or not required by law. The above report was generated using voice recognition software. It may contain grammatical, syntax or spelling errors. Electronically signed by: Riley sOorio M.D. 07/04/2022 12:18 PM ECG Additional Comments: Findings were reportedly suggestive of inferior old NV. (1) Fall Encounter type: initial encounter Qualified Code(s): W19.XXXA - Unspecified fall, initial encounter
[2022-07-04] MEDS ORDERED: GLUCOSE 40% GEL 15 GM TUBE PO PRN (18:14)
[2022-07-04] MEDS ORDERED: DEXTROSE 50% 50 ML SYRINGE IV PRN (18:14)
[2022-07-04] MEDS ORDERED: GLUCAGON FOR INJ 1 MG VIAL SQ PRN (18:14)
[2022-07-04] MEDS ORDERED: CARBOHYDRATES FOR HYPOGLYCEMIA PO PRN (18:14)
[2022-07-04] MEDS ORDERED: GLUCOSE 10 TAB/TUBE PO PRN (18:14)
[2022-07-04] MEDS ORDERED: LORazepam 0.5 MG TAB PO PRN (18:14)
[2022-07-04] MEDS: INSULIN ASPART PER UNIT SC SCH ×2 (19:00→21:02)
[2022-07-04] MEDS ORDERED: SODIUM CHLORIDE 0.9% 1000ML 1,000 ML IV SCH (19:14)
[2022-07-04] MEDS: ACETAMINOPHEN 325 MG TAB PO PRN (19:54)
[2022-07-04] MEDS: ATORVASTATIN 40 MG TAB PO SCH (20:48)
[2022-07-04] MEDS: GABAPENTIN 300 MG CAP PO SCH (20:48)
[2022-07-04] MEDS: MIRTAZAPINE TAB 15 MG TAB PO SCH (20:50)
[2022-07-04] MEDS ORDERED: MIRTAZAPINE TAB 15 MG TAB PO SCH (21:00)
[2022-07-05 06:14] LABS: Basophils # (auto) 0.04 K/uL (0-0.2); Basophils % (auto) 0.6 %; Eosinophils # (auto) 0.28 K/uL (0-0.50); Eosinophils % (auto) 3.9 %; Hematocrit (blood only) 40.5 % (34.1-44.9); Immature Granulocytes # (auto) 0.03 K/uL (0.00-0.02); Immature Granulocytes % (auto) 0.4 %; Lymphocytes # (auto) 1.47 K/uL (1.2-3.4); Lymphocytes % (auto) 20.6 %; Mean Corpuscular Hemoglobin 27.6 pg (25.0-34.0); Mean Corpuscular Hgb Conc 32.1 g/dL (32.0-36.0); Mean Platelet Volume 9.3 fL (9.4-12.3); Monocytes # (auto) 0.63 K/uL (0.24-0.82); Monocytes % (auto) 8.8 %; Neutrophils # (auto) 4.68 K/uL (1.4-6.5); Neutrophils % (auto) 65.7 %; Platelet Count 188 K/uL (130-400); RDW Coefficient of Variation 13.8 % (11.5-14.5); RDW Standard Deviation 43.3 fL (36.4-46.3); Red Blood Count 4.71 M/uL (3.93-5.22); White Blood Count 7.13 K/ul (4.8-10.8)
[2022-07-05] MEDS: LEVOTHYROXINE SODIUM 112 MCG TABLET PO SCH (06:19)
[2022-07-05 06:39] LABS: Calcium 8.3 mg/dl (8.5-10.1); Creatinine Clr Calc Pharmacy 75.4 ml/min; Est GFR (African American) 92.7 ml/min; Potassium 4.1 mmol/L (3.5-5.1)
--- NOTE | 2022-07-05 07:57 | CT Scan Report ---
CT SCAN OF THE BRAIN WITHOUT IV CONTRAST CLINICAL HISTORY: Follow-up subdural hemorrhage COMPARISON STUDY: CT of the brain dated 07/04/2022 and 08/23/2020. TECHNIQUE: Unenhanced axial CT scan of the brain is performed from the vertex to the skull base. A do se lowering technique was utilized adhering to the principles of ALARA. CT DOSE: 537.48 mGy.cm FINDINGS: Brain parenchyma: Trace subdural hemorrhage is again seen along the midline falx. This measures up to 1 mm and has not significantly changed from yesterday. There is no associated mass effect There is a ge-related involutional change noting minimal subcortical and periventricular microangiopathic diseas e. Left MCA territory encephalomalacia is unchanged and consistent with a remote insult. There is no parenchymal hematoma, mass effect, or evidence of acute territorial ischemia by CT criteria. Maradiaga-whi te matter differentiation is preserved. Ventricles, sulci, cisterns: Prominent secondary to involutional change. Intracranial vasculature: There is atherosclerotic calcification of the cavernous carotid and vertebr al arteries. Calvarium: Unremarkable. Soft tissues: A 13 mm sebaceous cyst is again seen in the right parietal scalp. Sinuses and mastoids: There is trace mucosal thickening within the left maxillary antrum. Air-fluid l evels seen in the left sphenoid sinus. The remaining visualized paranasal sinuses are clear. The mast oid air cells are well pneumatized. Orbits: The bony orbits are grossly intact. There are bilateral ocular lens implants. IMPRESSION: 1. Trace subdural hemorrhage along the midline falx has not appreciably changed as compared to yester day. There is no associated mass effect. 2. No new hemorrhage is seen. There is no evidence of acute territorial ischemia by CT criteria. ACT 112: Negative or not required by law. Electronically signed by: Karsten Christy M.D. 07/05/2022 7:56 AM
[2022-07-05 08:19] LABS: Estimated Average Glucose 126 mg/dl
[2022-07-05] MEDS: lisinopril 5 MG TAB PO SCH (08:57)
[2022-07-05] MEDS: FLUoxetine HCL 20 MG CAP PO SCH (08:57)
[2022-07-05] MEDS ORDERED: CLOPIDOGREL BISULFATE 75 MG TAB PO SCH (09:00)
[2022-07-05] MEDS: INSULIN ASPART PER UNIT SC SCH ×4 (09:22→20:14)
[2022-07-05] MEDS: ACETAMINOPHEN 325 MG TAB PO PRN ×2 (10:06→17:12)
--- NOTE | 2022-07-05 13:31 | Hospitalist Progress Note ---
Date of Service July 05, 2022 Assessment & Plan (1) SDH (subdural hematoma): (2) Dizziness: (3) Fall: (4) Diabetes: Plan This is a 77 y/o female with a PMH of DM2, prior CVA w/ residual expressive aphasia, HTN, dyslipidemia, hypothyroidism, depression, anxiety, and RLS who presents to the ED via EMS after a fall and syncopal episode at home. 1) Syncopal event 1) Subdural hematoma Fall on 07/04 after a syncopal episode resulting in small SDH. Repeat CT head done today; unchanged compared to yesterday. Echo -EF of 60 to 65% with grade 1 diastolic dysfunction, moderate to severe mitral troll annular calcification. Plan; Neurology on board; continue to monitor for 48 hours. Hold Plavix for 3 days.Will restart DVT prophylaxis tomorrow AM. EEG -- PT OT. Fall precautions. Chronic problems; Type 2 diabetes mellitusinsulin, Accu-Cheks. Hold metformin. Hypothyroidism-continue levothyroxine Depressioncontinue fluoxetine Hyperlipidemia continue Lipitor DVT- SCDs Diet- diabetic Dispo- Pending PT/OT Admission and Anticipated Discharge Date Admission Date: July 04, 2022 Subjective Patient seen and examined at bedside. She is lying down on the bed comfortably; not in any acute distress. She complains of minor headache; no nausea or vomiting. No complaint of visual disturbance , weakness/numbness of any body part. Review of Systems Review of Systems: All systems reviewed & are unremarkable except as noted in Subjective Physical Exam Physical Exam: Constitutional: WD/WN, vitals as above, NAD, sitting up in bed, pleasant, conversing easily Head: Normocephalic, Atraumatic Eyes: PERRL, conjunctivae normal, anicteric sclerae ENMT: external ear and nose normal, oropharynx normal Neck: trachea midline, no thyromegaly normal visual inspection Respiratory: normal respiratory effort, lungs clear to auscultation, no wheeze, rales, rhonchi. Normal insp/exp effort, no accessory muscle use Cardiovascular: RRR, no murmur, no edema Vessels: no JVD or carotid bruit Chest: normal inspection of chest Abdomen: normal bowel sounds, soft, nontender, no hepatosplenomegaly Musculoskeletal: no cyanosis or clubbing, extremities motor strength 5/5 Skin: no rashes, warm and dry normal turgor Neurologic: PERRL, EOMI, accommodation nl, no face palsy, no dysarthria CN's II- XI intact bilaterally and moves all extremities Psychiatric: A+Ox3, euthymic affect Lymphatic: no cervical or axillary lymphadenopathy : deferred Results & Data Results & Data ([facility]) Vital Signs (Past 12 Hours) Vital Signs Temp Pulse Pulse Resp BP Pulse Ox O2 Del Method 07/05/22 08:00 63 07/05/22 08:00 Room Air 07/05/22 07:57 36.9 C 63 16 128/76 95 Room Air 07/05/22 03:55 36.8 C 60 16 138/77 94 Room Air Diagnostic Findings Head CT 07/05/22 07:00 CT SCAN OF THE BRAIN WITHOUT IV CONTRAST CLINICAL HISTORY: Follow-up subdural hemorrhage COMPARISON STUDY: CT of the brain dated 07/04/2022 and 08/23/2020. TECHNIQUE: Unenhanced axial CT scan of the brain is performed from the vertex to the skull base. A dose lowering technique was utilized adhering to the principles of ALARA. CT DOSE: 537.48 mGy.cm FINDINGS: Brain parenchyma: Trace subdural hemorrhage is again seen along the midline falx. This measures up to 1 mm and has not significantly changed from yesterday. There is no associated mass effect There is age-related involutional change noting minimal subcortical and periventricular microangiopathic disease. Left MCA territory encephalomalacia is unchanged and consistent with a remote insult. There is no parenchymal hematoma, mass effect, or evidence of acute territorial ischemia by CT criteria. Maradiaga-white matter differentiation is preserved. Ventricles, sulci, cisterns: Prominent secondary to involutional change. Intracranial vasculature: There is atherosclerotic calcification of the cavernous carotid and vertebral arteries. Calvarium: Unremarkable. Soft tissues: A 13 mm sebaceous cyst is again seen in the right parietal scalp. Sinuses and mastoids: There is trace mucosal thickening within the left maxillary antrum. Air-fluid levels seen in the left sphenoid sinus. The remaining visualized paranasal sinuses are clear. The mastoid air cells are well pneumatized. Orbits: The bony orbits are grossly intact. There are bilateral ocular lens impl ants. IMPRESSION: 1. Trace subdural hemorrhage along the midline falx has not appreciably changed as compared to yesterday. There is no associated mass effect. 2. No new hemorrhage is seen. There is no evidence of acute territorial ischemia by CT criteria. ACT 112: Negative or not required by law. Electronically signed by: Karsten Christy M.D. 07/05/2022 7:56 AM COVID-19 Results Results COVID-19 Adm Lab Results: RBC 4.71 M/uL (3.93-5.22) 07/05/22 WBC 7.13 K/ul (4.8-10.8) 07/05/22 Hgb 13.0 g/dl (12.0-16.0) 07/05/22 Hct 40.5 % (34.1-44.9) 07/05/22 Plt Count 188 K/uL (130-400) 07/05/22 Neutrophils (%) (Auto) 65.7 % 07/05/22 Lymphocytes (%) (Auto) 20.6 % 07/05/22 Monocytes # (Auto) 0.63 K/uL (0.24-0.82) 07/05/22 Eosinophils # (Auto) 0.28 K/uL (0-0.50) 07/05/22 Immature Granulocyte % (Auto) 0.4 % 07/05/22 Neutrophils # (Auto) 4.68 K/uL (1.4-6.5) 07/05/22 Lymphocytes # (Auto) 1.47 K/uL (1.2-3.4) 07/05/22 Monocytes # (Auto) 0.63 K/uL (0.24-0.82) 07/05/22 Eosinophils # (Auto) 0.28 K/uL (0-0.50) 07/05/22 Basophils # (Auto) 0.04 K/uL (0-0.2) 07/05/22 Immature Granulocyte # (Auto) 0.03 K/uL (0.00-0.02) H 07/05 Na 139 mmol/L (136-145) 07/05/22 K 4.1 mmol/L (3.5-5.1) 07/05/22 Cl 105 mmol/L (98-107) 07/05/22 CO2 29 mmol/L (21-32) 07/05/22 Anion Gap 5 (3-11) 07/05/22 BUN 19 mg/dl (6-23) 07/05/22 Creatinine 0.73 mg/dl (0.6-1.2) 07/05/22 BUN/Creatinine Ratio 26.0 (10-20) H 07/05/22 Glucose Level 107 mg/dl (70-99(Fasting)) H 07/05/22 Ca 8.3 mg/dl (8.5-10.1) L 07/05/22 Total Bilirubin 0.7 mg/dl (0.2-1.0) 07/04/22 AST/SGOT 18 U/L (13-39) 07/04/22 ALT/SGPT 11 U/L (7-52) 07/04/22 Alkaline Phosphatase 78 U/L (34-104) 07/04/22 Total Protein 6.7 gm/dl (6.0-8.3) 07/04/22 Albumin 4.2 gm/dl (3.4-5.0) 07/04/22 Globulin 2.5 gm/dl (2.5-4.0) 07/04/22 Albumin/Globulin Ratio 1.7 (0.9-2) 07/04/22 INR 1.0 (0.9-1.1) 07/04/22 SARS-CoV-2, RNA, NAAT NEGATIVE (NEGATIVE) 07/04/22 Chest X-Ray 07/04/22 (1) Fall Encounter type: initial encounter Qualified Code(s): W19.XXXA - Unspecified fall, initial encounter
[2022-07-05] MEDS: MIRTAZAPINE TAB 15 MG TAB PO SCH (20:15)
[2022-07-05] MEDS: ATORVASTATIN 40 MG TAB PO SCH (20:15)
[2022-07-05] MEDS: GABAPENTIN 300 MG CAP PO SCH (20:15)
[2022-07-06] MEDS: LEVOTHYROXINE SODIUM 112 MCG TABLET PO SCH (05:28)
[2022-07-06] MEDS: INSULIN ASPART PER UNIT SC SCH ×2 (09:17→12:44)
[2022-07-06] MEDS: ACETAMINOPHEN 325 MG TAB PO PRN (09:23)
[2022-07-06] MEDS: lisinopril 5 MG TAB PO SCH (09:24)
[2022-07-06] MEDS: FLUoxetine HCL 20 MG CAP PO SCH (09:24)
--- NOTE | 2022-07-06 12:30 | Hospitalist Progress Note ---
Date of Service July 06, 2022 Assessment & Plan (1) SDH (subdural hematoma): (2) Dizziness: (3) Fall: (4) Diabetes: Plan This is a 77 y/o female with a PMH of DM2, prior CVA w/ residual expressive aphasia, HTN, dyslipidemia, hypothyroidism, depression, anxiety, and RLS who presents to the ED via EMS after a fall and syncopal episode at home. 1) Syncopal event 1) Subdural hematoma Fall on 07/04 after a syncopal episode resulting in small SDH. Repeat CT head done after 24 hours; unchanged compared to presentation Echo -EF of 60 to 65% with grade 1 diastolic dysfunction, moderate to severe mitral troll annular calcification. Plan; Awaiting PT OT for evaluation for any assistive device. -Holding heparin/Plavix for now. -EEG ordered; can be done as outpatient if not done inpatient. Chronic problems; Type 2 diabetes mellitusinsulin, Accu-Cheks. Hold metformin. Hypothyroidism-continue levothyroxine Depressioncontinue fluoxetine Hyperlipidemia continue Lipitor DVT- SCDs Diet- diabetic Dispo- Pending PT/OT Admission and Anticipated Discharge Date Admission Date: July 04, 2022 Subjective Patient is comfortably sitting up on the bed. She no longer has headache or back pain. She is able to ambulate without any difficulty. No episode of any dizziness. Review of Systems Review of Systems: All systems reviewed & are unremarkable except as noted in Subjective Physical Exam Physical Exam: Constitutional: WD/WN, vitals as above, NAD, sitting up in bed, pleasant, conversing easily Head: Normocephalic, Atraumatic Eyes: PERRL, conjunctivae normal, anicteric sclerae ENMT: external ear and nose normal, oropharynx normal Neck: trachea midline, no thyromegaly normal visual inspection Respiratory: normal respiratory effort, lungs clear to auscultation, no wheeze, rales, rhonchi. Normal insp/exp effort, no accessory muscle use Cardiovascular: RRR, no murmur, no edema Vessels: no JVD or carotid bruit Chest: normal inspection of chest Abdomen: normal bowel sounds, soft, nontender, no hepatosplenomegaly Musculoskeletal: no cyanosis or clubbing, extremities motor strength 5/5 Skin: no rashes, warm and dry normal turgor Neurologic: PERRL, EOMI, accommodation nl, no face palsy, no dysarthria CN's II- XI intact bilaterally and moves all extremities Psychiatric: A+Ox3, euthymic affect Lymphatic: no cervical or axillary lymphadenopathy : deferred Results & Data Results & Data ([facility]) Vital Signs (Past 12 Hours) Vital Signs Temp Pulse Resp BP Pulse Ox O2 Del Method 07/06/22 11:27 36.4 C L 68 16 153/89 H 96 Room Air 07/06/22 09:25 79 143/87 H 07/06/22 07:35 36.6 C 56 L 18 137/70 97 Room Air 07/06/22 03:02 36.6 C 59 L 18 136/76 98 Room Air COVID-19 Results Results COVID-19 Adm Lab Results: RBC 4.71 M/uL (3.93-5.22) 07/05/22 WBC 7.13 K/ul (4.8-10.8) 07/05/22 Hgb 13.0 g/dl (12.0-16.0) 07/05/22 Hct 40.5 % (34.1-44.9) 07/05/22 Plt Count 188 K/uL (130-400) 07/05/22 Neutrophils (%) (Auto) 65.7 % 07/05/22 Lymphocytes (%) (Auto) 20.6 % 07/05/22 Monocytes # (Auto) 0.63 K/uL (0.24-0.82) 07/05/22 Eosinophils # (Auto) 0.28 K/uL (0-0.50) 07/05/22 Immature Granulocyte % (Auto) 0.4 % 07/05/22 Neutrophils # (Auto) 4.68 K/uL (1.4-6.5) 07/05/22 Lymphocytes # (Auto) 1.47 K/uL (1.2-3.4) 07/05/22 Monocytes # (Auto) 0.63 K/uL (0.24-0.82) 07/05/22 Eosinophils # (Auto) 0.28 K/uL (0-0.50) 07/05/22 Basophils # (Auto) 0.04 K/uL (0-0.2) 07/05/22 Immature Granulocyte # (Auto) 0.03 K/uL (0.00-0.02) H 07/05 Na 139 mmol/L (136-145) 07/05/22 K 4.1 mmol/L (3.5-5.1) 07/05/22 Cl 105 mmol/L (98-107) 07/05/22 CO2 29 mmol/L (21-32) 07/05/22 Anion Gap 5 (3-11) 07/05/22 BUN 19 mg/dl (6-23) 07/05/22 Creatinine 0.73 mg/dl (0.6-1.2) 07/05/22 BUN/Creatinine Ratio 26.0 (10-20) H 07/05/22 Glucose Level 107 mg/dl (70-99(Fasting)) H 07/05/22 Ca 8.3 mg/dl (8.5-10.1) L 07/05/22 Total Bilirubin 0.7 mg/dl (0.2-1.0) 07/04/22 AST/SGOT 18 U/L (13-39) 07/04/22 ALT/SGPT 11 U/L (7-52) 07/04/22 Alkaline Phosphatase 78 U/L (34-104) 07/04/22 Total Protein 6.7 gm/dl (6.0-8.3) 07/04/22 Albumin 4.2 gm/dl (3.4-5.0) 07/04/22 Globulin 2.5 gm/dl (2.5-4.0) 07/04/22 Albumin/Globulin Ratio 1.7 (0.9-2) 07/04/22 INR 1.0 (0.9-1.1) 07/04/22 SARS-CoV-2, RNA, NAAT NEGATIVE (NEGATIVE) 07/04/22 Chest X-Ray 07/04/22 (1) Fall Encounter type: initial encounter Qualified Code(s): W19.XXXA - Unspecified fall, initial encounter
--- NOTE | 2022-07-06 16:31 | Discharge Summary ---
Date of Service July 06, 2022 Admission HPI Per Admitting Provider This is a 77 y/o female with a PMH of DM2, prior CVA w/ residual expressive aphasia, HTN, dyslipidemia, hypothyroidism, depression, anxiety, and RLS who presents to the ED via EMS after a fall and syncopal episode at home. Pt reports that she started with dizziness yesterday described as "I felt like I was going to fall" - she tried to rest for the rest of the day and felt a little better before she went to bed. She does admit that she didn't eat much yesterday - checked her blood sugar but can't remember what it was. This morning, she felt okay when she woke up. She bent over to get cat food out of the cupboard and the next thing she remembers is waking up on the floor having fallen against the fridge. She crawled across the floor to the phone to call for help. In the ED, she was complaining of lower back pain - CT of spine was negative. However, CT of the head shows a 2 mm subdural hematoma. The possibility of transfer was discussed with the patient and her sister but they declined preferring to stay at [facility] if possible. The ED spoke with neurology economic history teacher who recommended admission for observation and repeat imaging tomorrow. Currently, pt's main complain is a posterior headache and lower back pain. She denies dizziness at present. No diplopia, chest pain, palpitations or SOB. No change in baseline expressive aphasia Admission Exam Per Admitting Provider Constitutional: well developed and well nourished; no acute distress Eyes: + anicteric sclerae, PERRL, normal accom modation and EOM intact bilaterally ENMT: external ear and nose normal, oropharynx normal Neck: trachea midline Respiratory: no respiratory distress and no labored breathing Auscultation: lungs clear to auscultation bilaterally; no rales, no rhonchi and no wheezes Cardiovascular: Rate/Rhythm: regular rate and regular rhythm Heart Sounds: + murmur Vessels: dorsalis pedis pulses present and radial pulses present Extremities: no pedal edema Gastrointestinal (Abdomen): Inspection/Auscultation: normal bowel sounds; abdomen not distended Percussion/Palpation: abdomen soft; abdomen nontender Musculoskeletal: Head/Neck/Chest: normocephalic and neck supple Strength 4/5 and equal bilateral UE and LE Skin: no jaundice Neurologic: moves all extremities; no focal motor deficits Speech / Cognition: + expressive aphasia (mild) Motor/Sensory: no fasciculations Cranial Nerves: PERRL, normal accommodation, EOM intact bilaterally, normal facial strength, tongue midline, able to rotate head bilaterally, able to elevate shoulders bilaterally and symmetric palate elevation Psychiatric: A+Ox3, euthymic affect Principal Diagnosis 1) Syncopal event 2) Subdural hematoma Discharge Exam Constitutional: WD/WN, vitals as above, NAD, sitting up in bed, pleasant, conversing easily Head: Normocephalic, Atraumatic Eyes: PERRL, conjunctivae normal, anicteric sclerae ENMT: external ear and nose normal, oropharynx normal Neck: trachea midline, no thyromegaly normal visual inspection Respiratory: normal respiratory effort, lungs clear to auscultation, no wheeze, rales, rhonchi. Normal insp/exp effort, no accessory muscle use Cardiovascular: RRR, no murmur, no edema Vessels: no JVD or carotid bruit Chest: normal inspection of chest Abdomen: normal bowel sounds, soft, nontender, no hepatosplenomegaly Musculoskeletal: no cyanosis or clubbing, extremities motor strength 5/5 Skin: no rashes, warm and dry normal turgor Neurologic: PERRL, EOMI, accommodation nl, no face palsy, no dysarthria CN's II- XI intact bilaterally and moves all extremities Psychiatric: A+Ox3, euthymic affect Lymphatic: no cervical or axillary lymphadenopathy : deferred Discharge Data Allergies Allergy/AdvReac Type Severity Reaction Status Date / Time simvastatin Allergy Unknown CAN'T Verified 08/23/20 19:33 REMEMBER Sulfa (Sulfonamide Allergy Unknown CAN'T Verified 08/23/20 19:33 Antibiotics) REMEMBER Consultations 07/04/22 12:59 Consult Neurology Routine 07/04/22 13:25 ED Decision to Admit Stat Ordered Studies 07/04/22 10:48 CT cervical spine wo con Stat CT lumbar spine wo con Stat 07/04/22 10:49 CT head/brain wo con Stat 07/05/22 07:00 CT head/brain wo con DAILY Hospital Course (1) SDH (subdural hematoma): (2) Dizziness: (3) Fall: (4) Diabetes: Plan Patient is a 77 y/o female with a PMH of DM2, prior CVA w/ residual expressive aphasia, HTN, dyslipidemia, hypothyroidism, depression, anxiety, and RLS who presents to the ED via EMS after a fall and syncopal episode at home. Head CT on admission showed tiny acute subdural hematoma layers along falx cerebrum measuring less than 2 mm transversely. Patient was admitted to telemetry floor. Neurology service was consulted; recommended to observe for [address] head without contrast in [address] which did not show any acute changes. TTE was performed which showed EF of 60 to 65% with grade 1 diastolic dysfunction. Telemetry did not show any events during the hospitalization. PT and OT evaluation was done on the day after discharge; patient did not require any assistive device and was recommended to go back home. Patient Plavix was kept on hold on discharge; she was instructed to take Plavix 2 days after discharge. She was asked to follow-up with her PCP. Total Time Total Time Spent Total Time Spent (In Minutes): 40 Total Time Includes: Examination of the Patient, Discharge Planning, Medication Reconciliation, Communication With Other Providers and Other Discharge Plan Discharge Items Patient Disposition: Home - Self-Care Reason For Visit: DIZZINESS, SMALL SDH Discharge Diagnosis: 1) Syncopal event 2) Subdural hematoma 3) Type 2 DM 4) Hypothyroidism Activity: Resume your previous activity Non-emergency contact: Primary Care Provider Call non-emergency contact if: your symptoms worsen and you have a fever Follow-up/Referrals: Janice Freeman PA-C [Primary Care Provider] - Diet: Carb Consistent or DM2 Addtl Attending Provider Instructions: Please Start taking Plavix from day after tomorrow. Continue to take all your other medications. Please follow up with your PCP in one to two weeks Pending Studies at Discharge: No Stand-Alone Forms: My [facility], Smoking Cessation Medications and DC Order Prescriptions: Continued fluoxetine 40 mg Capsule 40 mg PO DAILY atorvastatin 40 mg Tablet 40 mg PO HS gabapentin 300 mg Capsule 300 mg PO HS lisinopril 5 mg Tablet 5 mg PO DAILY lorazepam 1 mg Tablet 0.5 mg PO BID PRN (Reason: Anxiety) metformin 500 mg Tablet Extended Release 24 Hr 1,000 mg PO BIDM levothyroxine 112 mcg Tablet 112 mcg PO DAILYBB PreserVision AREDS-2 [id number] Capsule 1 tab PO BID acetaminophen 325 mg Tablet 650 mg PO Q4H PRN (Reason: pain) Qty: 14 0RF alendronate 70 mg tablet 70 mg PO WK mirtazapine 15 mg tablet 15 mg PO HS Rx Instructions: with 7.5 mg mirtazapine 7.5 mg tablet 7.5 mg PO HS Rx Instructions: with 15 mg Discontinued clopidogrel 75 mg Tablet 75 mg PO DAILY Discharge Orders: Discharge Order (Routine); Ordered 07/06/22 Ordered By: Evaristo Ernst Admission Data Admit Date/Time: 07/04/22 13:59 Attending Provider: Evaristo Ernst Admit Provider: Benedicto Sorto Primary Care Provider: Janice Freeman Other Providers: Jeffrey Jackson ; Benedicto Sorto Other Interventions: Discharge Summary Assessment (RN) Last Done: 07/06/22 15:24
== END 2022-07-06 16:45 | disposition home or self-care (01) | DRG 84 ==
LOC: ED 10:04 → EDINP 13:59 → SUATTDRO 13:59 → 2S 19:06
DX: Z79.84 Long term (current) use of oral hypoglycemic drugs; Z83.3 Family history of diabetes mellitus; E03.9 Hypothyroidism, unspecified; E11.649 Type 2 diabetes mellitus with hypoglycemia without coma; Y92.019 Unspecified place in single-family (private) house as the place of occurrence of the external cause; F41.8 Other specified anxiety disorders; Z79.02 Long term (current) use of antithrombotics/antiplatelets; G25.81 Restless legs syndrome; R55 Syncope and collapse; Z88.8 Allergy status to other drugs, medicaments and biological substances; S06.5X9A Traumatic subdural hemorrhage with loss of consciousness of unspecified duration, initial encounter; I10 Essential (primary) hypertension; E78.5 Hyperlipidemia, unspecified; I69.820 Aphasia following other cerebrovascular disease; Z88.2 Allergy status to sulfonamides; Z79.4 Long term (current) use of insulin; Y93.K9 Activity, other involving animal care; W19.XXXA Unspecified fall, initial encounter

== ENCOUNTER 2025-03-08 09:04 | Inpatient (IN) ==
--- NOTE | 2025-03-08 09:17 | Emergency Department Note ---
Impression & Plan Fall Admission ED Provider Note HPI: History obtained from patient. The patient is a 79-year-old female with history of hypertension, mild neurocognitive disorder, history of CVA, presents the emergency department after being found down on the ground at home. Patient lives alone but has family check on her daily, she was last heard from around 4 PM yesterday. Today when the patient's daughter checked on her at home she was found on the ground. Patient is not able to recall exactly how she ended up on the ground. Patient denies any focal complaint of pain on arrival, she ambulates all of her extremities spontaneously without issue. Patient otherwise appears to be in no acute distress on my initial evaluation. ROS: - Per HPI Differential Diagnosis: Intracranial injury to include subdural hematoma, epidural hematoma, critical electrolyte abnormalities to include hyperkalemia, hyponatremia, acute kidney injury, amongst other potential pathologies. *Outpatient medications and allergy history reviewed. PE: General: Alert, frail-appearing, no acute distress HEENT: Normocephalic, trachea midline Eyes: Extraocular eye movement is intact, no scleral erythema Pulmonary: Clear to auscultation bilaterally, no wheezing Cardio: Regular rate and rhythm GI: Abdomen is soft to palpation : No suprapubic tenderness MSK: No evidence of trauma or malformation of the extremities, no edema, patient maintains flexion at the hips bilaterally without issue Skin: No evidence of rash Neuro: Alert, no focal deficits Psychiatric: Cooperative INDEPENDENT INTERPRETATIONS: medication nurse: (As interpreted by myself): - An order was placed for continuous cardiac monitoring - Patient was noted to be in sinus rhythm with a rate of 60 EKG: (As interpreted by myself): Rate: 55 Rhythm: Sinus rhythm Intervals: GA interval 218 ms, otherwise within normal limits ST changes: No ST elevation Time: 0924 Chest x-ray: (As interpreted by myself): No acute disease Interventions provided in ED: - IV fluid bolus Medical Decision Making: IV was established and lab work obtained, patient was placed on cereal maker. Lab work shows no leukocytosis, hemoglobin is normal, platelet count is normal, CMP does not show any evidence of any critical findings. Total CK level is elevated at 476, there is no evidence of any acute kidney injury. Patient was given IV fluids here in the ED, CT imaging of the head did not show any evidence of any acute intracranial process. Chest x-ray did not show any evidence of any acute disease. On my reevaluation, the patient's sister is at the bedside. She states the patient is currently living alone and they were recently told at her neurology appointment that this was not advisable. Patient has been having some ambulatory issues and some worsening dementia. At this point I also am in agreement that the patient should be placed in a nursing facility for her own safety to which the family was in agreement. This is not possible to be arranged in the near future and therefore after discussion with case management the patient will require admission. Case was discussed with the on-call midlevel provider for [facility] and the patient was placed for admission in stable condition to the service of Dr. West. Consultants/Discussions held with other healthcare providers: - Hospitalist, Dr. West Disposition discussion held by myself with: - Patient and patient's sister at the bedside Diagnosis: 1. Ambulatory dysfunction with apparent mechanical fall, acute 2. History of dementia 3. Elevated CK level, acute Disposition: Admission Duke Moran DO Emergency Medicine Past Med/Surg History Problem List (Updated 03/08/25 @ 13:39 by Duke Moran DO) Mild vascular neurocognitive disorder HTN (hypertension) Macular degeneration History of CVA (cerebrovascular accident) (Chronic) 2018 L MCA Hypothyroidism (Chronic) Hyperlipidemia (Chronic) Diabetes (Chronic) Depression (Chronic) Anxiety (Chronic) Fall (Acute) Medical History (Updated 03/08/25 @ 13:39 by Duke Moran DO) Closed compression fracture of thoracic vertebra DVT prophylaxis Fracture, thoracic vertebra Dizziness Benign paroxysmal positional vertigo Diverticulosis Restless leg syndrome SDH (subdural hematoma) Uterine leiomyoma Stroke (cerebrum) Surgical History History of tubal ligation History of cataract extraction with lens replacement b/l History of colonoscopy Family History Sister Diabetes Father Cancer Lung Diabetes Macular degeneration Mother Diabetes Macular degeneration Social History (Updated 03/08/25 @ 11:55 by ELMER Houston) Smoking Status: Never smoker Second Hand Exposure: No; Do You Dip or Chew Tobacco: No; Hx Alcohol Use: No Hx Substance Use: No Preferred Language: Zambian Communication Ability: Impaired Environmental Issues Instructor Required: No Beliefs That Will Affect Care: None marital status: / Current Living Situation: Alone Feels Safe at Home: Yes Assistive Devices: Denture - Upper, Glasses and Walker Allergies Allergies Allergy/AdvReac Type Severity Reaction Status Date / Time sertraline Allergy Unknown CAN'T Verified 01/30/25 15:10 REMEMBER--ON [facility] MED LIST Sulfa (Sulfonamide Allergy Unknown CAN'T Verified 01/30/25 15:10 Antibiotics) REMEMBER-ON [facility] MED LIST simvastatin AdvReac Intermediate Muscle Pain Verified 01/30/25 15:10 Home Meds Home Medications Medication Instructions Recorded Confirmed atorvastatin 40 mg tablet 40 mg PO UD 08/23/20 03/08/25 fluoxetine 40 mg capsule 40 mg PO DAILY 08/23/20 03/08/25 gabapentin 300 mg capsule 300 mg PO HS 08/23/20 03/08/25 lorazepam 1 mg tablet 0.5 mg PO Q8H PRN Anxiety 08/23/20 03/08/25 metformin 500 mg tablet,extended 1,000 mg PO UD 08/23/20 03/08/25 release 24 hr vit C 250 mg-vit E 90 mg-zinc 40 1 tab PO BID 08/23/20 03/08/25 mg-copper 1 [id number] capsule (PreserVision AREDS-2) alendronate 70 mg tablet 70 mg PO WK 07/04/22 03/08/25 mirtazapine 15 mg tablet 15 mg PO HS 07/04/22 03/08/25 acetaminophen 650 mg 650 mg PO Q8H PRN Pain 01/30/25 03/08/25 tablet,extended release bupropion HCl 300 mg 24 hr tablet, 300 mg PO QAM 01/30/25 03/08/25 extended release cholecalciferol (vitamin D3) 25 25 mcg PO DAILY 01/30/25 03/08/25 mcg (1,000 unit) capsule (Vitamin D3) clopidogrel 75 mg tablet 75 mg PO QAM 01/30/25 03/08/25 hydrocortisone 2.5 % lotion 1 applic topical DAILY PRN ITCHY 01/30/25 03/08/25 EAR CANAL NEEDED. levothyroxine 125 mcg tablet 125 mcg PO UD 01/30/25 03/08/25 sodium chloride 5 % eye drops 1 drp OPB BID 03/17/25 04/23/25 Results & Data (ED) Vital Signs Vital Signs - 24 hr 03/08/25 08:57 Temperature 36.7 C Temperature Source Oral Pulse Rate 61 Respiratory Rate 23 Blood Pressure 157/106 H Blood Pressure Mean 123 Pulse Oximetry 99 Sepsis Recent Fever Within 48 Hours No Sepsis New/Unexplained Change in Mental Status No Sepsis Action Taken by Nursing No Action Required Laboratory Data 03/08/25 09:19 03/08/25 09:19 Lab Results 03/08/25 Range/Units 09:19 WBC 10.62 (4.8-10.8) K/ul RBC 4.57 (4.20-5.40) M/uL Hgb 13.0 (12.0-16.0) g/dl Hct 40.6 (37.0-47.0) % MCV 88.8 (80.0-100.0) fL MCH 28.4 (25.0-34.0) pg MCHC 32.0 (32.0-36.0) g/dL RDW Std Deviation 47.2 H (36.4-46.3) fL RDW Coeff of Teresita 14.6 H (11.5-14.5) % Plt Count 214 (130-400) K/uL MPV 9.5 (9.4-12.4) fL Immature Gran % (Auto) 0.3 % Neut % (Auto) 82.6 % Lymph % (Auto) 8.5 % [place] % (Auto) 7.9 % Eos % (Auto) 0.3 % Baso % (Auto) 0.4 % Neut # (Auto) 8.78 H (1.40-6.50) K/uL Lymph # (Auto) 0.90 L (1.20-3.40) K/uL [place] # (Auto) 0.84 H (0.11-0.59) K/uL Eos # (Auto) 0.03 (0.00-0.50) K/uL Baso # (Auto) 0.04 (0.00-0.20) K/uL Immature Gran # (Auto) 0.03 (0.01-0.20) K/uL PT 10.9 (9.0-12.0) Seconds INR 1.0 (0.9-1.1) Sodium 143 (136-145) mmol/L Potassium 3.8 (3.5-5.1) mmol/L Chloride 104 (98-107) mmol/L Carbon Dioxide 30 (21-32) mmol/L Anion Gap 9 (3-11) BUN 21 (6-23) mg/dl Creatinine 0.83 (0.6-1.2) mg/dl Est Cr Clr Drug Dosing 58.9 ml/min eGFR 72.11 BUN/Creatinine Ratio 25.3 H (10-20) Glucose 87 (70-99(Fasting)) mg/dl Calcium 8.9 (8.6-10.3) mg/dl Total Bilirubin 0.9 (0.2-1.0) mg/dl AST 28 (13-39) U/L ALT 12 (7-52) U/L Alkaline Phosphatase 69 (34-104) U/L Total Creatine Kinase 476 H (26-192) U/L Total Protein 6.5 (6.0-8.3) gm/dl Albumin 4.3 (3.4-5.0) gm/dl Globulin 2.2 L (2.5-4.0) gm/dl Albumin/Globulin Ratio 2.0 (0.9-2) Lipase 17 (11-82) U/L Administered Medications Sodium Chloride (Nss) 1,000 mls @ 80 mls/hr IV .[id number] SIVAN Stop: 03/09/25 11:29 Last Admin: 03/08/25 12:26 Dose: 80 mls/hr Documented By: JOSH Discontinued Medications Sodium Chloride (Nss) 1,000 mls @ 999 mls/hr IV .[id number] STA Stop: 03/08/25 10:14 Last Admin: 03/08/25 09:59 Dose: 999 mls/hr Documented By: JOSH Imaging Data Radiologist's Impression: Chest X-Ray 03/08/25 09:14 XR chest 1V portable CLINICAL HISTORY: lower rib pain s/p fall COMPARISON STUDY: 01/30/2025 FINDINGS: Stable mild cardiomegaly without pulmonary vascular congestion. No effusion, consolidation, or pneumothorax. No grossly displaced rib fracture seen. IMPRESSION: No acute findings seen. ACT 112: Negative or not required by law. Electronically signed by: Miki Minor M.D. 03/08/2025 9:[address] 03/08/25 09:15 CT SCAN OF THE BRAIN WITHOUT IV CONTRAST CLINICAL HISTORY: Fall. COMPARISON STUDY: Head CT and CTA head January 30, 2025.Z TECHNIQUE: Unenhanced axial CT scan of the brain was performed from the vertex to the skull base. A dose lowering technique was utilized adhering to the principles of ALARA. CT DOSE: 781.9 mGy.cm FINDINGS: Brain parenchyma: No acute intracranial hemorrhage, midline shift or mass effect is present. Trace acute subarachnoid hemorrhage on prior head CT has resolved. Encephalomalacia within the left upper lobe is unchanged and suggest an old left MCA territory infarct. Calcification within the sylvian fissure may represent old thrombus within a sylvian branch, unchanged. There are no extra-axial fluid collections. There are no findings to suggest acute dural sinus thrombosis or acute territorial infarct. Ventricles, sulci, cisterns: There is no hydrocephalus. The basal cisterns are patent. Calvarium: No calvarial fractures. Sinuses and mastoids: The visualized paranasal sinuses are clear. The mastoid air cells are well pneumatized. Orbits: The bony orbits are grossly intact. IMPRESSION: 1. No acute intracranial findings. 2. Old left MCA territory infarct, unchanged. 3. No calvarial fractures. ACT 112: Negative or not required by law. Electronically signed by: Pedro Dorman M.D. 03/08/2025 10:01 AM Discharge Plan Visit Data Chief Complaint: Fall Stated Complaint: FALL, BACK PAIN ED Provider: Duke Moran Discharge Problem: Fall Forms Stand Alone Forms: My [facility] Prescriptions Prescriptions: No Action fluoxetine 40 mg Capsule 40 mg PO DAILY atorvastatin 40 mg Tablet 40 mg PO UD Rx Instructions: 40 mg po qam. last filled 11/16/24 90 day supply gabapentin 300 mg Capsule 300 mg PO HS lorazepam 1 mg Tablet 0.5 mg PO Q8H PRN (Reason: Anxiety) metformin 500 mg Tablet Extended Release 24 Hr 1,000 mg PO UD Rx Instructions: 1000mg po BIDM. last filled 11/30 90 day supply PreserVision AREDS-2 [id number]-mg Capsule 1 tab PO BID Rx Instructions: 03/08-otc unable to verify alendronate 70 mg tablet 70 mg PO WK mirtazapine 15 mg tablet 15 mg PO HS sodium chloride 5 % Drops 1 drp OPB BID Rx Instructions: 03/08- otc unable to verify clopidogrel 75 mg tablet 75 mg PO QAM acetaminophen [Tylenol Extended Release] 650 mg Tablet Extended Release 650 mg PO Q8H PRN (Reason: Pain) Rx Instructions: 03/08-otc unable to verify hydrocortisone 2.5 % Lotion 1 applic TOPICAL DAILY PRN (Reason: ITCHY EAR CANAL NEEDED.) Rx Instructions: 03/08- otc unable to verify levothyroxine 125 mcg tablet 125 mcg PO UD Rx Instructions: 125mcg po dailybb. last filled 11/16/24 90 day supply cholecalciferol (vitamin D3) [Vitamin D3] 25 mcg (1,000 unit) Capsule 25 mcg PO DAILY Rx Instructions: 03/08-otc unable to verify bupropion HCl 300 mg tablet extended release 24 hr 300 mg PO QAM Referrals Referrals: Janice Freeman PA-C [Primary Care Provider] -
--- NOTE | 2025-03-08 09:54 | XRay Report ---
XR chest 1V portable CLINICAL HISTORY: lower rib pain s/p fall COMPARISON STUDY: 01/30/2025 FINDINGS: Stable mild cardiomegaly without pulmonary vascular congestion. No effusion, consolidation, or pneumothorax. No grossly displaced rib fracture seen. IMPRESSION: No acute findings seen. ACT 112: Negative or not required by law. Electronically signed by: Miki Minor M.D. 03/08/2025 9:53 AM
[2025-03-08 09:57] LABS: Basophils # (auto) 0.04 K/uL (0.00-0.20); Basophils % (auto) 0.4 %; Eosinophils # (auto) 0.03 K/uL (0.00-0.50); Eosinophils % (auto) 0.3 %; Hematocrit (blood only) 40.6 % (37.0-47.0); Immature Granulocytes # (auto) 0.03 K/uL (0.01-0.20); Immature Granulocytes % (auto) 0.3 %; Lymphocytes % (auto) 8.5 %; Mean Corpuscular Hemoglobin 28.4 pg (25.0-34.0); Mean Corpuscular Volume 88.8 fL (80.0-100.0); Mean Platelet Volume 9.5 fL (9.4-12.4); Monocytes # (auto) 0.84 K/uL (0.11-0.59); Monocytes % (auto) 7.9 %; Neutrophils # (auto) 8.78 K/uL (1.40-6.50); Neutrophils % (auto) 82.6 %; Platelet Count 214 K/uL (130-400); RDW Coefficient of Variation 14.6 % (11.5-14.5); RDW Standard Deviation 47.2 fL (36.4-46.3); Red Blood Count 4.57 M/uL (4.20-5.40); White Blood Count 10.62 K/ul (4.8-10.8)
[2025-03-08] MEDS: SODIUM CHLORIDE 0.9% 1,000 ML IV STA (09:59)
--- NOTE | 2025-03-08 10:02 | CT Scan Report ---
CT SCAN OF THE BRAIN WITHOUT IV CONTRAST CLINICAL HISTORY: Fall. COMPARISON STUDY: Head CT and CTA head January 30, 2025.Z TECHNIQUE: Unenhanced axial CT scan of the brain was performed from the vertex to the skull base. A dose lowering technique was utilized adhering to the principles of ALARA. CT DOSE: 781.9 mGy.cm FINDINGS: Brain parenchyma: No acute intracranial hemorrhage, midline shift or mass effect is present. Trace ac [place] subarachnoid hemorrhage on prior head CT has resolved. Encephalomalacia within the left upper lob e is unchanged and suggest an old left MCA territory infarct. Calcification within the sylvian fissur e may represent old thrombus within a sylvian branch, unchanged. There are no extra-axial fluid colle ctions. There are no findings to suggest acute dural sinus thrombosis or acute territorial infarct. Ventricles, sulci, cisterns: There is no hydrocephalus. The basal cisterns are patent. Calvarium: No calvarial fractures. Sinuses and mastoids: The visualized paranasal sinuses are clear. The mastoid air cells are well pneu matized. Orbits: The bony orbits are grossly intact. IMPRESSION: 1. No acute intracranial findings. 2. Old left MCA territory infarct, unchanged. 3. No calvarial fractures. ACT 112: Negative or not required by law. Electronically signed by: Pedro Dorman M.D. 03/08/2025 10:01 AM
[2025-03-08 10:10] LABS: Albumin Level 4.3 gm/dl (3.4-5.0); BUN Creatinine Ratio 25.3 (10-20); Bilirubin,Total 0.9 mg/dl (0.2-1.0); Calcium 8.9 mg/dl (8.6-10.3); Creatinine Clr Calc Pharmacy 58.9 ml/min; Globulin 2.2 gm/dl (2.5-4.0); Potassium 3.8 mmol/L (3.5-5.1); Total Protein 6.5 gm/dl (6.0-8.3)
[2025-03-08 10:24] LABS: Prothrombin Time 10.9 Seconds (9.0-12.0)
--- NOTE | 2025-03-08 12:17 | History & Physical Report ---
Date of Service March 08, 2025 Assessment & Plan (1) Fall: (2) Mild vascular neurocognitive disorder: (3) Diabetes: (4) HTN (hypertension): (5) Hyperlipidemia: (6) Hypothyroidism: (7) Depression: (8) Anxiety: Plan 79 year old female with PMH significant for CVA (2016), expressive aphasia, memory impairment, mild vascular neurocognitive disorder, DMII, HTN, HLD, hypothyroidism, osteoporosis, MDD, anxiety, and macular degeneration who presented to the ED today after having a fall at home yesterday. Fall Patient unable to provide history about the fall due to cognitive status Likely mechanical in nature due to sister's history of carpet being messed up and walker tipped over Head CT without acute findings - SAH from fall in January is resolved, old infarct is unchanged CXR negative, UA pending collection Labs unremarkable besides CK 476 - likely due to extended time on the ground Received 1L NSS in ED - continue MIVF at 80mL/hr for additional 1L Recheck CK in am PT and OT consults Case management consult for SNF placement at discharge History of CVA Mild vascular neurocognitive disorder Memory impairment Continue plavix per home dosing Patient follows with Neurology and was seen on 03/06 for follow up after her fall in January and for memory issues Neurology does not feel that patient is safe to live at home alone Patient's sister is POA and agreeable to SNF placement Scheduled MRI on 03/28 and follow up appointment on 04/17 with Neurology for ongoing concerns about memory Scheduled appointment on 03/20 with Ortho for cast removal from previous fall DMII On metformin at home - holding while inpt SSI while inpatient HTN Not currently on antihypertensives HLD Continue statin per home dosing Hypothyroidism Continue levothyroxine per home dosing Depression Anxiety Continue wellbutrin, fluoxetine, mirtazapine, lorazepam DVT Prophylaxis: SQ lovenox Code Status: DNR/DNI - As per discussion at bedside with POA PCP: Janice Freeman PA-C Disposition: admit to med/surg Patient seen in collaboration with Dr. West. Please see addendum. I spent a total of 75 minutes coordinating, documenting and providing care for this patient excluding time spent in the performance of separately billed services or time spent by another provider/QHP. Admission and Anticipated Discharge Date Admission Date: 03/08/2025 History of Present Illness Chief Complaint: fall Primary Care Provider: Janice Freeman PA-C 79 year old female with PMH significant for history of CVA (2017), expressive aphasia, memory impairment, mild vascular neurocognitive disorder, DMII, HTN, HLD, hypothyroidism, osteoporosis, MDD, anxiety, and macular degeneration who presented to the ED today after having a fall at home yesterday. Patient is unable to provide history due to cognitive status. Patient's sister/POA provided history. She reports that she dropped the patient off at her apartment where she lives alone yesterday around 3pm. She returned this morning around 8am to take her to an appointment and found her on the ground in her living room in front of her chair. She reports that the carpet was messed up and her walker was tipped over on the ground. Patient was awake when she arrived and in the same clothes she was wearing yesterday suggesting that the fall happened sometime yesterday. She denies any incontinence. Patient reports that she feels good and denies chest pain and abdominal pain but unable to provide further review of systems. Of note, patient was seen by Neurology on Thursday for follow up after [facility] where she suffered a small volume SAH and small subdural hematoma, which resulted in admission to [facility] and discharge to [facility] for 1.5 weeks. Per review of note from Neurology, they feel she is not safe to live alone. Patient's sister/POA is agreeable to SN F placement at this time due to recurrent falls and concern for safety of patient. Allergies Allergy/AdvReac Type Severity Reaction Status Date / Time sertraline Allergy Unknown CAN'T Verified 01/30/25 15:10 REMEMBER--ON [facility] MED LIST Sulfa (Sulfonamide Allergy Unknown CAN'T Verified 01/30/25 15:10 Antibiotics) REMEMBER-ON [facility] MED LIST simvastatin AdvReac Intermediate Muscle Pain Verified 01/30/25 15:10 Home Medications Medication Instructions Recorded Confirmed Type atorvastatin 40 mg tablet 40 mg PO UD 08/23/20 03/08/25 History fluoxetine 40 mg capsule 40 mg PO DAILY 08/23/20 03/08/25 History gabapentin 300 mg capsule 300 mg PO HS 08/23/20 03/08/25 History lorazepam 1 mg tablet 0.5 mg PO Q8H PRN Anxiety 08/23/20 03/08/25 History metformin 500 mg tablet,extended 1,000 mg PO UD 08/23/20 03/08/25 History release 24 hr vit C 250 mg-vit E 90 mg-zinc 40 1 tab PO BID 08/23/20 03/08/25 History mg-copper 1 po-tftclx-pixpul capsule (PreserVision AREDS-2) alendronate 70 mg tablet 70 mg PO WK 07/04/22 03/08/25 History mirtazapine 15 mg tablet 15 mg PO HS 07/04/22 03/08/25 History acetaminophen 650 mg 650 mg PO Q8H PRN Pain 01/30/25 03/08/25 History tablet,extended release bupropion HCl 300 mg 24 hr tablet, 300 mg PO QAM 01/30/25 03/08/25 History extended release cholecalciferol (vitamin D3) 25 25 mcg PO DAILY 01/30/25 03/08/25 History mcg (1,000 unit) capsule (Vitamin D3) clopidogrel 75 mg tablet 75 mg PO QAM 01/30/25 03/08/25 History hydrocortisone 2.5 % lotion 1 applic topical DAILY PRN ITCHY 01/30/25 03/08/25 History EAR CANAL NEEDED. levothyroxine 125 mcg tablet 125 mcg PO UD 01/30/25 03/08/25 History sodium chloride 5 % eye drops 1 drp OPB BID 01/30/25 03/08/25 History Past Med/Surg History Problem List (Updated 03/08/25 @ 11:52 by ELMER [place]) Mild vascular neurocognitive disorder HTN (hypertension) Macular degeneration History of CVA (cerebrovascular accident) (Chronic) 2017 [facility] Hypothyroidism (Chronic) Hyperlipidemia (Chronic) Diabetes (Chronic) Depression (Chronic) Anxiety (Chronic) Fall (Acute) Medical History (Updated 03/08/25 @ 11:52 by ELMER [place]) Closed compression fracture of thoracic vertebra DVT prophylaxis Fracture, thoracic vertebra Dizziness Benign paroxysmal positional vertigo Diverticulosis Restless leg syndrome SDH (subdural hematoma) Uterine leiomyoma Stroke (cerebrum) Surgical History History of tubal ligation History of cataract extraction with lens replacement b/l History of colonoscopy Family History Sister Diabetes Father Cancer Lung Diabetes Macular degeneration Mother Diabetes Macular degeneration Social History (Updated 03/08/25 @ 11:55 by ELMER [place]) Smoking Status: Never smoker Second Hand Exposure: No; Do You Dip or Chew Tobacco: No; Hx Alcohol Use: No Hx Substance Use: No Preferred Language: Sammarinese Communication Ability: Impaired Medical Registrar Required: No Beliefs That Will Affect Care: None marital status: / Current Living Situation: Alone Feels Safe at Home: Yes Assistive Devices: Denture - Upper, Glasses and Walker Review of Systems Review of Systems: Unobtainable due to cognitive status Physical Exam Physical Exam: General/Psych: WD/WN, sitting up in bed, NAD, conversing easily, disorganized thought process, euthymic affect Head: normocephalic, atraumatic Eyes: normal inspection, PERRL, conjunctivae pink, anicteric sclerae ENT: external ear and nose normal, oropharynx normal Neck: normal visual inspection, trachea midline, no thyromegaly Respiratory: normal respiratory effort, lungs clear to auscultation, no wheeze/rales/rhonchi, no accessory muscle use Cardiovascular: regular rate and rhythm, no murmur/rub/gallop, no JVD Extremities: no cyanosis or clubbing, normal peripheral pulses, no BLE edema, cast in place on right lower arm/wrist Abdomen/GI: normal bowel sounds, soft, nontender, no hepatosplenomegaly Neurologic/MSK: A+Ox3, CN's II-XI intact bilaterally, moves all extremities Skin: no rashes, normal color, warm and dry Results & Data Results & Data Vital Signs (Past 12 Hours) Vital Signs Temp Pulse Resp BP Pulse Ox 03/08/25 08:57 36.7 C 61 23 157/106 H 99 Laboratory Results Short CBC 03/08/25 Range/Units 09:19 WBC 10.62 (4.8-10.8) K/ul Hgb 13.0 (12.0-16.0) g/dl Hct 40.6 (37.0-47.0) % Plt Count 214 (130-400) K/uL BMP 03/08/25 09:19 Sodium 143 Potassium 3.8 Chloride 104 Carbon Dioxide 30 BUN 21 Creatinine 0.83 Glucose 87 Calcium 8.9 Cardiac Enzymes 03/08/25 Range/Units 09:19 Total Creatine Kinase 476 H (26-192) U/L Liver Function 03/08/25 Range/Units 09:19 Total Bilirubin 0.9 (0.2-1.0) mg/dl AST 28 (13-39) U/L ALT 12 (7-52) U/L Alkaline Phosphatase 69 (34-104) U/L Albumin 4.3 (3.4-5.0) gm/dl I have independently reviewed and interpreted patient's admitting labs including CBC, CMP, PTT, PT/INR, lipase, CK. Diagnostic Findings Chest X-Ray 03/08/25 09:14 XR chest 1V portable CLINICAL HISTORY: lower rib pain s/p fall COMPARISON STUDY: 01/30/2025 FINDINGS: Stable mild cardiomegaly without pulmonary vascular congestion. No effusion, consolidation, or pneumothorax. No grossly displaced rib fracture seen. IMPRESSION: No acute findings seen. ACT 112: Negative or not required by law. Electronically signed by: Miki Minor M.D. 03/08/2025 9:[address] 03/08/25 09:15 CT SCAN OF THE BRAIN WITHOUT IV CONTRAST CLINICAL HISTORY: Fall. COMPARISON STUDY: Head CT and CTA head January 30, 2025.Z TECHNIQUE: Unenhanced axial CT scan of the brain was performed from the vertex to the skull base. A dose lowering technique was utilized adhering to the principles of ALARA. CT DOSE: 781.9 mGy.cm FINDINGS: Brain parenchyma: No acute intracranial hemorrhage, midline shift or mass effect is present. Trace acute subarachnoid hemorrhage on prior head CT has resolved. Encephalomalacia within the left upper lobe is unchanged and suggest an old left MCA territory infarct. Calcification within the sylvian fissure may represent old thrombus within a sylvian branch, unchanged. There are no extra-axial fluid collections. There are no findings to suggest acute dural sinus thrombosis or acute territorial infarct. Ventricles, sulci, cisterns: There is no hydrocephalus. The basal cisterns are patent. Calvarium: No calvarial fractures. Sinuses and mastoids: The visualized paranasal sinuses are clear. The mastoid air cells are well pneumatized. Orbits: The bony orbits are grossly intact. IMPRESSION: 1. No acute intracranial findings. 2. Old left MCA territory infarct, unchanged. 3. No calvarial fractures. ACT 112: Negative or not required by law. Electronically signed by: Pedro Dorman M.D. 03/08/2025 10:01 AM Medications Administered Current Inpatient Medications Sodium Chloride (Nss) 1,000 mls @ 80 mls/hr IV .[id number] [facility] Stop: 03/09/25 11:29 ECG Additional Comments: I have independently reviewed and interpreted patient's admitting EKG which revealed: sinus bradycardia at rate of 55bpm with first degree heart block Code Status & VTE Plan Code Status DNR/DNI VTE Prophylaxis Plan VTE Prophylaxis will be ordered: Yes Supervising Physician Co-Signing Physician Notes attending addendum: The patient was seen and examined in the emergency room in presence of the sister She was found on floor this morning and was not able to get up She was also seen by the neurologist yesterday and was advised that she should not be left alone at home with dementia and possible ambulatory dysfunction Denies any symptoms during examination and bilateral legs examinations did not show any evidence of focal deficit in power On examination Lying in bed without any acute distress and remains hemodynamically stable with blood pressure on the upper side at 157/106 Physical examinations unremarkable and examination of the lower extremities did not feel weakness involving any side and strength bilaterally was quite reasonable Her admission labs, imaging studies and medications reviewed Ambulatory dysfunction mechanical fall at home with recent stroke and mental impairment Will get PT OT evaluation and likely to need placement Agree with assessment and plan as outlined above by ELMER [place] and take the full responsibility of care in the hospital Total time taken to document all this was [address] Rush West (1) Fall Encounter type: initial encounter Qualified Code(s): W19.XXXA - Unspecified fall, initial encounter
[2025-03-08] MEDS: SODIUM CHLORIDE 0.9% 1,000 ML IV SCH (12:26)
--- NOTE | 2025-03-08 13:29 | Electrocardiogram Report ---
Test Reason : Blood Pressure : */* mmHG Vent. Rate : 55 BPM Atrial Rate : 55 BPM P-R Int : 218 ms QRS Dur : 88 ms QT Int : 474 ms P-R-T Axes : 24 19 54 degrees QTcB Int : 453 ms Sinus bradycardia with 1st degree A-V block Otherwise normal ECG When compared with ECG of 30-Jan-2025 12:07, No significant change was found Confirmed by Dandy Leos ([id number]) on 03/08/2025 1:28:51 PM Referred By: Confirmed By: Dandy Leos
--- OUTSIDE RECORDS SUMMARY | 2025-03-08 13:49 | External Medical Summary | Summary of Care ---
Author Name Unknown Organization [facility] Address [address] [place] [address] Phone [phone] Care Team Providers Care Handbell Choir Director Name Role Phone Lydia Janice A DONY Primary Care Provider [phone] Reason for Visit * Reason Onset Date Comments Hospital Follow-Up 02/09/2025 Encounter Details Date Type Department Care Team (Late st Contact Info) Description 02/09/2025 Telephone [facility], [place] [address] [place] [address] Specified, [place] [facility] [address] [place] [address] Hospital Follow-Up Allergies Active Allergy Reactions Criticality Noted Date Comments Sertraline Hcl 04/26/2012 Leg pain Simvastatin Muscle pain 01/10/2019 Sulfa Antibiotics 08/25/2001 rash documented as of this encounter (statuses as of 02/21/2025) Medications Multiple Vitamins-Minerals (PRESERVISION AREDS 2) Capsule Take 1 Cap by mouth 2 times a day. 60 Cap 12 10/22/20 17 Active Acetaminophen ER 650 MG Oral Tablet Extended Release Take 1 Tablet by mouth every 8 hours as needed for Pain, Moderate. Active Vitamin D3 25 MCG (1000 UT) Oral Tablet (Vitamin D3) Take 1 Tablet by mouth in the morning. 03/07/20 21 Active Sodium Chloride (Hypertonic) 5 % Ophthalmic Solution Instill 1 Drop into the right eye in the morning and 1 Drop before bedtime. Active Hydrocortisone 2.5 % External Lotion Apply to ear canal daily as needed for itching. 118 mL 3 08/03/20 23 Active Alendronate Sodium 70 MG Oral Tablet (Fosamax) Take 1 Tablet by mouth once a week. With a full glass of water. Remain upright for 30 minutes after taking. 12 Tablet 3 04/21/20 24 Active Atorvastatin Calcium 40 MG Oral Tablet (Lipitor)Indicatio ns:Dyslipidemia, goal LDL below 100 Take 1 Tablet by mouth in the morning. 90 Tablet 2 05/25/20 24 Active OneTouch Ultra In Vitro Strip (Glucose Blood)Indications: Type 2 diabetes mellitus with hemoglobin A1c goal of less than 7.0% ([facility]) USE STRIP TO CHECK GLUCOSE UP TO TWICE DAILY DIRECTED 200 Strip 3 06/14/20 24 Active metFORMIN HCl ER 500 MG Oral Tablet Extended Release 24 Hour (Glucophage XR)Indications:Typ e 2 diabetes mellitus with hemoglobin A1c goal of less than 7.0% ([facility]) TAKE 2 TABLETS BY MOUTH TWICE DAILY WITH MORNING MEAL AND WITH EVENING MEAL 360 Tablet 1 08/26/20 24 Active FLUoxetine HCl 40 MG Oral Capsule (PROzac) Take 1 capsule by mouth in the morning 90 Capsule 1 08/26/20 24 Active Levothyroxine Sodium 125 MCG Oral Tablet (Levoxyl)Indicatio ns:Acquired hypothyroidism TAKE 1 TABLET BY MOUTH IN THE MORNING AT LEAST 30 MINUTES PRIOR TO OTHER MEDICATIONS OR BREAKFAST 90 Tablet 11/16/19 25 Active buPROPion HCl ER (XL) 300 MG Oral Tablet Extended Release 24 Hour (Wellbutrin XL) Take 1 Tablet by mouth in the morning. 30 Tablet 11 11/29/19 25 Active Mirtazapine 15 MG Oral Tablet (Remeron) Take 1 Tablet by mouth at bedtime. 90 Tablet 3 11/29/19 25 Active LORazepam 1 MG Oral Tablet (Ativan)Indication s:RACHEL (generalized anxiety disorder) TAKE 1/2 TABLET BY MOUTH EVERY 8 HOURS NEEDED FOR ANXIETY (1/2 TAB UP TO THREE TIMES DAILY). 23 Tablet 01/31/20 25 Active Gabapentin 300 MG Oral Capsule (Neurontin)Indicat ions:New onset of headaches after age 50,Chronic ischemic left MCA stroke,Aphasia Take 1 Capsule by mouth at bedtime. 90 Capsule 3 01/27/20 25 Active oxyCODONE HCl 5 MG/5ML Oral Solution (Roxicodone) Take 2.5 mL by mouth every 4 hours as needed for Pain, Moderate (may take 5 mg for pain, severe). 30 mL 03/21/20 25 Active Docusate Sodium 100 MG Oral Capsule (Colace) Take 1 Capsule by mouth in the morning and 1 Capsule before bedtime. 10 Capsule 02/04/20 25 Active Hospital, Clinic, or Other Facility Administered Medication Ordered Dose Route Frequency Start Date End Date Status Aflibercept (Eylea) intraviteal prefilled syringe 2 mgIndications:Exudative age-related macular degeneration of right eye with active choroidal neovascularization (HCC) 2 mg IZ PRN 06/16/2024 06/16/2025 Active ROPivacaine (Naropin) inj 1.5 mgIndications:Exudative age-related macular degeneration of right eye with active choroidal neovascularization (HCC) 1.5 mg IJ PRN 06/16/2024 06/16/2025 Active documented as of this encounter (statuses as of 02/21/2025) Active Problems Problem Noted Date Diagnosed Date Impaired mobility and ADLs 02/01/2025 Gait abnormality 02/01/2025 History of cataract extraction 01/30/2025 Expressive aphasia 01/30/2025 Dizziness 01/30/2025 Facial laceration 01/30/2025 Fall 01/30/2025 Uterine leiomyoma 01/30/2025 Abnormal gait 01/30/2025 Back pain 01/30/2025 Benign paroxysmal positional vertigo 01/30/2025 Closed compression fracture of thoracic vertebra 01/30/2025 Diverticulosis 01/30/2025 Macular degeneration 01/30/2025 Multiple injuries due to trauma 01/30/2025 Laceration of brow without complication 01/31/20 Overview (01/30/2025): Right eye/brow laceration SAH (subarachnoid hemorrhage) 01/30/2025 SDH (subdural hematoma) 01/30/2025 Hematoma of right thigh 01/30/2025 Closed fracture of distal end of right radius Contusion of right knee 01/30/2025 Generalized anxiety disorder 01/27/2024 Age-related osteoporosis wit hout current pathological fracture 07/29/2023 Essential (primary) hypertension 07/22/2022 Hemiplegia and 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 Type 2 diabetes mellitus wit h hemoglobin A1c goal of less than 7.0% 09/13/2009 Overview (03/11/2016): Per Diabetes Taxonomy. ICD-10 update of inactive term Restless leg syndrome 02/17/2008 History of colonic polyps 04/07/2005 Overview (08/17/2017): colonoscopy 09/19, villous adenoma, FU due 12/25 ICD-10 update of inactive term Hypothyroidism 10/04/2002 DIVERTICULOSIS OF COLON 10/04/2002 Obesity documented as of this encounter (statuses as of 02/21/2025) Resolved Problems Problem Noted Date Diagnosed Date Resolved Date Major depressive disorder, r ecurrent episode, mild 12/26/2021 11/29/2024 Diastolic congestive heart failure 07/18/2021 01/15/2022 RACHEL (generalized anxiety disorder) 07/20/2019 08/09/2024 Overview (08/09/2024): Duplicated on pl Exudative age-related macula r degeneration of right eye with active choroidal neovascularization 05/06/2018 11/29/2024 Major depressive disorder, recurrent, mild 05/06/2018 08/03/2020 Cerebrovascular accident (CV A) due to embolism of left middle cerebral artery 04/30/2018 07/14/2019 Abnormal echocardiogram 05/27/201710/17 Depression with anxiety 04/15/201606/17 Severe obesity with body mas s index (BMI) of 35.0 to 39.9 with serious comorbidity 04/29/2010 Overview (09/01/2018): Per Obesity Protocol, #19 ICD-10 update of inactive diagnosis Benign neoplasm of colon 10/05/2009 Overview (10/22/2009): repeat colonoscopy in 5 yrs Type 2 diabetes mellitus wit h hemoglobin A1c goal of less than 7.0% 07/28/2008 09/13/2009 Overview (03/11/2016): Per Diabetes Taxonomy. ICD-10 update of inactive term ADVANCE DIRECTIVE INFORMATION 09/01/2005 09/19/2024 Overview (09/01/2005): No, Advance Directive brochure offered , patient declined. Impaired fasting glucose 04/15/2005 Overview (04/15/2005): 134 03/2005 PURE HYPERCHOLESTEROLEM 08/22/200310/16 Overview (11/01/2009): Per Lipid Taxonomy. Need for prophylactic hormon e replacement therapy (postmenopausal) 10/04/2002 11/04/2017 Uterine leiomyoma 10/04/2002 07/06/2018 OTHER 10/04/2002 11/04/2017 Major depressive disorder 10/04/2002 Overview (09/08/2017): ICD-10 update of inactive term Headache 10/04/2002 11/04/2017 Overview (02/06/2016): ICD-10 update of inactive term documented as of this encounter (statuses as of 02/21/2025) Immunizations Name Administration Dates Next Due COVID-19 mRNA, LNP-s, No Pre serve, 2-Dose Series (Beijingyicheng) 12/26/2021,2021,05/24/2021 Covid-19, Mrna, Lnp-s, Pf, B ivalent, 30 Mcg, IM, 12 yrs and above (Beijingyicheng) 09/05/2022 Pneumococcal Conjugate Vacc, 13 Valent (Prevnar) 05/06/2018 Pneumococcal Polysaccharide PPV23 (Pneumovax) 01/29/2008 Season Influenza, Quad, PF, Adjuvanted, 65+ Yrs, IM (FLUAD) 07/25/2020 Seasonal Influenza Virus Vac cine, Unspecified Formulation 07/25/2020 Seasonal Influenza, High Dos e, Trivalent, PF, IM (Fluzone HD) 08/01/2024 Seasonal Influenza, Quadriva lent Hd (Fluzone Hd) 07/29/2023,07/22/2022 TDAP (age 10 and older)(Boostrix) 07/22/2022 TDAP, Age 7 and older, IM (Adacel) 03/18/2009 documented as of this encounter Social History Tobacco Use Types Packs/Day Years Used Date Smoking Tobacco: Never Smokeless Tobacco: Never Alcohol Use Standard Drinks/Week Comments Not Currently 0 (1 standard drink = 0.6 oz pur e alcohol) rare PHQ-2 Answer Date Recorded PHQ Adult Total Score 7 02/16/2025 Hunger Vital Sign Answer Date Recorded Within the past 12 months, y ou worried that your food would run out before you got the money to buy more. Never true 02/17/20 25 Within the past 12 months, t he food you bought just didn't last and you didn't have money to get more. Never true 02/16/2025 Childcare Answer Date Recorded Do you feel overwhelmed with taking care of a child, family member or friend? No 02/16/2025 Does your family need help f inding childcare? (Household - for ages 0-17 years) Not on file 02/16/2025 Clothing Answer Date Recorded Have you been unable to get clothing when it was really needed? No 02/16/2025 Is your family able to get c lothes or diapers when needed? (Household - for ages 0-17 years) Not on file 02/16/2025 Personal Safety Answer Date Recorded Do you feel unsafe or have concerns for your saf ety? No 02/16/2025 Do you have concerns for you r family's safety? (Household - for ages 0-17 years) Not on file 02/16/2025 Utilities Answer Date Recorded Do you have trouble paying y our heating, water, or electric bill? No 02/16/2025 Is your family able to pay t he heat, water, or electric bill? (Household - for ages 0-17 years) Not on file 02/16/2025 Does your family have access to good internet? (Household - for ages 0-17 years) Not on file 02/16/2025 Employment Status Answer Date Recorded Are you unemployed or without regular income? No 02/16/2025 Does the household have a re gular source of income? (Household - for ages 0-17 years) Not on file 02/16/2025 Social Connections Answer Date Recorded How often do you feel lonely or isolated from th ose around you? Often 02/16/2025 Financial Resource Strain Answer Date R ecorded Do you have any trouble payi ng for your medications, or do you think you might in the future? No 02/16/2025 Does your family have troubl e paying for medicine? (Household - for ages 0-17 years) Not on file 02/16/2025 Transportation Needs Answer Date Record ed Do you have trouble getting a ride to medical visits or work? (Adult - for ages 18 years and over) Not on file 02/16/2025 Does your family have a hard time getting a ride to doctors visits? (Household - for ages 0-17 years) Not on file 02/16/2025 Has lack of transportation k ept you from medical appointments, meetings, work, or from getting things needed for daily living? Check all that apply. No 02/16/2025 Do you (or your family) have trouble finding or paying for a ride (transportation)? (Household - for ages 0-17 years) Not on file 02/16/2025 Housing Stability Answer Date Recorded Do you currently live in a s helter or have no steady place to sleep at night? No 02/16/2025 Do you think you are at risk of becoming homeless? (Adult - for ages 18 years and over) Not on file 02/16/2025 Does your family worry about paying for your home or becoming homeless? (Household - for ages 0-17 years) Not on file 0 02/16/2025 Are you homeless or worried that you might be in the future? No 02/16/2025 Are you (or your family) gonzales eless or worried that you might be in the future? (Household - for ages 0-17 years) Not on file Food Insecurity Answer Date Recorded Within the past 12 months, y ou worried that your food would run out before you got the money to buy more. Never true 02/17/20 25 Within the past 12 months, t he food you bought just didn't last and you didn't have money to get more. Never true 02/16/2025 Do you need food for this week? 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 Answer Date of Assessment Author No 01/30/2025 7:53 PM EDT Meng Saenz RN * Are you blind or do you have serious difficulty seeing, even when wearing glasses? Answer Date of Assessment Author No 01/30/2025 7:53 PM EDT Meng Saenz RN * Do you have serious difficulty walking or climbing stairs? (5 years old or older) Answer Date of Assessment Author No 01/30/2025 7:53 PM EDT Meng Saenz RN * Do you have difficulty dressing or bathing? (5 years old or older) Answer Date of Assessment Author No 01/30/2025 7:53 PM EDT Meng Saenz RN * Because of a physical, mental, or emotional condition, do you have difficulty doing errands alone such as visiting a doctor’s office or shopping? (15 years old or older) Answer Date of Assessment Author No 01/30/2025 7:53 PM EDT Meng Saenz RN documented as of this encounter Mental Status * Because of a physical, mental, or emotional condition, do you have serious difficulty concentrating, remembering, or making decisions? (5 years old or older) Answer Entry Date Author Yes 01/30/2025 7:53 PM EDT Meng Saenz RN documented in this encounter Miscellaneous Notes * Telephone Encounter - Mara Nash OSA - 02/21/2025 1:56 PM EDT Patient was seen on 02/16 with Iraj Valentine for the CT results * Telephone Encounter - Radha Sinclair OSA - 02/09/2025 11:17 AM EDT Appt Needed Within: (Specify # of Days, Weeks, Months) -> 2 Wks Provider -> TRAUMATIC BRAIN INJURY MDC Tests Needed Prior to Appt -> cth Released on: 01/31/2025 2:26 AM Pt lives in [place] Can this be a telephonic f/u? CT scan 02/14 Ty documented in this encounter Plan of Treatment Upcoming Encounters Date Type Department Care Team (Late st Contact Info) Description 02/27/2025 11:00 AM EDT Office Visit Family Practice [facility] [place] [address] [place] [address] Janice Freeman PA-C [address] [place] [address] 03/08/2025 9:00 AM EDT Imaging Radiology [facility] [address] [place] [phone] 03/08/2025 11:00 AM EDT Office Visit Rheumatology [facility] [address] [place] [phone] Gio Zaragoza CRNP [facility] [place] [address] 03/20/2025 10:30 AM EDT Office Visit Orthopaedics [facility] [address] [place] [phone] Jeffrey Zuniga PA-C [address] [place] [phone] Scheduled Procedures Name Priority Associated Diagnoses Date/Ti me COLONOSCOPY FLEXIBLE PROXIMAL DIAGNOSTIC Recall History of colon polyps Health Maintenance Due Date Last Done Comments Zoster Vaccines (1 of 2) 1996 Adult Wellness Visit 2012 Pneumococcal Vaccine: 50+ Years (3 of 3 - PCV20 or PCV21) 05/06/2023 05/06/2018, 01/29/2008 COVID-19 Vaccine ( - season) 2024 09/05/2022, 12/26/2021, 12/26/2021, Additional history exists DXA Scan 12/08/2024 12/08/2022, 11/17, 10/03/2014, Additional history exists B-12 01/26/2025 01/27/2024, 03/0 12/2022, 02/01/2021, Additional history exists Diabetic Eye Exam 02/09/2025 02/10/2024, , 09/29/2023, Additional history exists HbA1c 05/29/2025 11/29/2024, 01/14, 07/29/2023, Additional history exists Diabetic Foot Exam 08/01/2025 08/01/2024, 0 07/29/2023, 07/22/2022, Additional history exists Albumin/Creatinine Ratio 10/01/2025 024, 01/15/2023, 11/28/2022, Additional history exists Colonoscopy 11/29/2025 11/29/2020, 11/16, 11/07/2014, Additional history exists TSH 02/07/2026 02/07/2025, 11/16, 01/27/2024, Additional history exists GFR 02/11/2026 02/11/2025, 01/15, 02/02/2025, Additional history exists Depression Monitoring 02/16/2026 02/16/2025 DTap/Tdap Vaccines (3 - Td or Tdap) 07/22/2032 07/22/2022, 03/18/2009, 03/29/1999 RETIRED - COLONOSCOPY-EVERY 5 YRS AGES 18-100 Discontinued 11/29/2020, 11/29/2020, 11/07/2014, Additional history exists Influenza Vaccine (FLU shot) Completed 08/01/2024, 07/29/2023, 07/22/2022, Additional history exists VITAMIN D LEVEL ONCE IN A LIFETIME-USE SMARTSET# [id number] Completed 02/01/2025, 01/15/2023, 07/18/2021, Additional history exists HPV (Gardasil) Vaccine Aged Out No lo nger eligible based on patient's age to complete this topic Hepatitis B Vaccine Aged Out No longe r eligible based on patient's age to complete this topic MENINGOCOCCAL (MENACTRA/MENVEO) Aged Out No longer eligible based on patient's age to complete this topic Meningitis B Vaccine (Bexsero/Trumemba) Aged Out No longer eligible based on patient's age to complete this topic documented as of this encounter Medical Devices Implanted Type Area Key Account Representative Device Identifier Shelf Expiration Date Model / Serial / Lot Sofport Intraocular Posterior Chamber Lens Implanted:Qty: 1 on 02/02/2017 by Gabriel Acosta MD at [facility] Right: Eye [employer] 05/15/2021 [id number] / [id number] / [id number] Lens Intraoc 29.0 - [id number] - [id number] Implanted:Qty: 1 on 02/09/2017 by Gabriel Acosta MD at [facility] Left: Eye [employer] 12/16/2018 [id number] / [id number] / [id number] Clip Quick 2.8mm 230cm - [id number] Implanted:Qty: 2 on 11/29/2020 by Sharon Benitez MD at [facility] [employer] 11/15/2022 [id number] / documented as of this encounter Advance Directives Documents on File Type Date Recorded Patient Veneer Redrier Expl anation Power of Retail Project Merchandiser 06/08/2020 POWER OF A TTORNEY Power of Retail Project Merchandiser 04/19/2018 POWER OF A TTORNEY DURABLE HEALTH POWER OF DATABASE MARKETING SPECIALIST * No Code (Latest Code Status on File) Date Activated Date Inactivated Comments 01/30/2025 8:36 PM 02/03/2025 3:31 PM This order r eflects the patients wishes and were consensually agreed upon. Question Answer Comments Discussion of Advance Direct esequiel occurred with: Power of Retail Project Merchandiser/Patient Veneer Redrier Does the patient have a Living Will? Yes, in monica rt and reviewed as current Does the patient have Health Care Power of Retail Project Merchandiser? Yes, in chart and reviewed as current * Full Code Date Activated Date Inactivated Comments 01/30/2025 5:28 PM 01/30/2025 8:36 PM This order r eflects the patients wishes and were consensually agreed upon. Question Answer Comments Discussion of Advance Directives occurred with: Patient * Full Code Date Activated Date Inactivated Comments 02/09/2017 6:42 AM 02/09/2017 1:04 PM This order r eflects the patients wishes and were consensually agreed upon. * Full Code Date Activated Date Inactivated Comments 02/02/2017 6:18 AM 02/02/2017 12:38 PM This order reflects the patients wishes and were consensually agreed upon. Healthcare Agents on File Name Relationship Healthcare Agent Relationship Communication Gladys Ramirez Other - (no specific identity) Health Care Agent (per Health Care Power of Retail Project Merchandiser document) Care Teams Handbell Choir Director Relationship Specialty Start Date End Date Lydia February DONY Santos [address] [place] [id number] PCP - General Physician Student Affairs Dean 05/25/24 documented as of this encounter
--- OUTSIDE RECORDS SUMMARY | 2025-03-08 13:49 | External Medical Summary | Summary of Care ---
Author Name Unknown Organization [facility] Address [address] [place] [address] Phone [phone] Care Team Providers Care Regional Psychiatric Director Name Role Phone Janice Freeman PA-C Primary Care Provider [phone] Reason for Visit * Reason Comments Re-Check Encounter Details Date Type Department Care Team (Latest Contact Info) Description 02/27/2025 11:00 AM EDT Office Visit Family Practice [facility] [place] [address] [place] [id number] Janice Freeman PA-C [address] [facility] [place] [id number] Type 2 diabetes mellitus with hemoglobin A1c goal of less than 7.0% ([facility])*; RACHEL (generalized anxiety disorder); SDH (subdural hematoma) ([facility]); Mild vascular neurocognitive disorder; Acquired hypothyroidism; Hemiplegia and hemiparesis following cerebral infarction affecting right dominant side ([facility]); Essential (primary) hypertension Allergies Active Allergy Reactions Criticality Noted Date Comments Sertraline Hcl 04/26/2012 Leg pain Simvastatin Muscle pain 01/10/2019 Sulfa Antibiotics 08/25/2001 rash documented as of this encounter (statuses as of 02/27/2025) Medications Acetaminophen ER 650 MG Oral Tablet Extended Release Take 1 Tablet by mouth every 8 hours as needed for Pain, Moderate. Active Hydrocortisone 2.5 % External Lotion Apply to ear canal daily as needed for itching. 118 mL 3 08/03/20 23 Active Atorvastatin Calcium 40 MG Oral Tablet (Lipitor)Indicatio ns:Dyslipidemia, goal LDL below 100 Take 1 Tablet by mouth in the morning. 90 Tablet 2 05/25/20 24 Active OneTouch Ultra In Vitro Strip (Glucose Blood)Indications: Type 2 diabetes mellitus with hemoglobin A1c goal of less than 7.0% ([facility]) USE STRIP TO CHECK GLUCOSE UP TO TWICE DAILY DIRECTED 200 Strip 3 06/14/20 24 Active metFORMIN HCl ER 500 MG Oral Tablet Extended Release 24 Hour (Glucophage XR)Indications:Typ e 2 diabetes mellitus with hemoglobin A1c goal of less than 7.0% ([facility]) TAKE 2 TABLETS BY MOUTH TWICE DAILY [...] OR BREAKFAST 90 Tablet 11/16/19 25 Active Gabapentin 300 MG Oral Capsule (Neurontin)Indicat ions:New onset of headaches after age 50,Chronic ischemic left MCA stroke,Aphasia Take 1 Capsule by mouth at bedtime. 90 Capsule 3 01/27/20 25 Active Clopidogrel Bisulfate 75 MG Oral Tablet (Plavix) Take 1 Tablet by mouth in the morning. 30 Tablet 5 02/17/20 25 Active Alendronate Sodium 70 MG Oral Tablet (Fosamax) Take 1 Tablet by mouth once a week. With a full glass of water. Remain upright for 30 minutes after taking. 12 Tablet 3 02/28/20 25 Active buPROPion HCl ER (XL) 300 MG Oral Tablet Extended Release 24 Hour (Wellbutrin XL) Take 1 Tablet by mouth in the morning. 30 Tablet 11 02/28/20 25 Active Mirtazapine 15 MG Oral Tablet (Remeron) Take 1 Tablet by mouth at bedtime. 90 Tablet 3 02/28/20 25 Active LORazepam 1 MG Oral Tablet (Ativan)Indication s:RACHEL (generalized anxiety disorder) TAKE 1/2 TABLET BY MOUTH EVERY 8 HOURS NEEDED FOR ANXIETY (1/2 TAB UP TO THREE TIMES DAILY). 23 Tablet 02/28/20 25 Active Multiple Vitamins-Minerals (PRESERVISION AREDS 2) Capsule Take 1 Cap by mouth 2 times a day. 60 Cap 12 10/22/20 17 025 Discontin ued(Medic ation List Clean Up) Vitamin D3 25 MCG (1000 UT) Oral Tablet (Vitamin D3) Take 1 Tablet by mouth in the morning. 03/07/20 21 025 Discontin ued(Medic ation List Clean Up) Sodium Chloride (Hypertonic) 5 % Ophthalmic Solution Instill 1 Drop into the right eye in the morning and 1 Drop before bedtime. 025 Discontin ued(Medic ation List Clean Up) Alendronate Sodium 70 MG Oral Tablet (Fosamax) Take 1 Tablet by mouth once a week. With a full glass of water. Remain upright for 30 minutes after taking. 12 Tablet 3 04/21/20 24 025 Discontin ued(Refil l) buPROPion HCl ER (XL) 300 MG Oral Tablet Extended Release 24 Hour (Wellbutrin XL) Take 1 Tablet by mouth in the morning. 30 Tablet 11 11/29/19 25 025 Discontin ued(Refil l) Mirtazapine 15 MG Oral Tablet (Remeron) Take 1 Tablet by mouth at bedtime. 90 Tablet 3 11/29/19 25 025 Discontin ued(Refil l) LORazepam 1 MG Oral Tablet (Ativan)Indication s:RACHEL (generalized anxiety disorder) TAKE 1/2 TABLET BY MOUTH EVERY 8 HOURS NEEDED FOR ANXIETY (1/2 TAB UP TO THREE TIMES DAILY). 23 Tablet 01/31/20 25 025 Discontin ued(Refil l) oxyCODONE HCl 5 MG/5ML Oral Solution (Roxicodone) Take 2.5 mL by mouth every 4 hours as needed for Pain, Moderate (may take 5 mg for pain, severe). 30 mL 02/04/20 25 025 Discontin ued(Medic ation List Clean Up) Docusate Sodium 100 MG Oral Capsule (Colace) Take 1 Capsule by mouth in the morning and 1 Capsule before bedtime. 10 Capsule 02/04/20 25 025 Discontin ued(Medic ation List Clean Up) Hospital, Clinic, or Other Facility Administered Medication [...] as of this encounter (statuses as of 02/27/2025) Active Problems Problem Noted Date Diagnosed Date [...] 01/30/2025 Laceration of brow without complication 01/31/20 25 Overview (01/30/2025): Right eye/brow laceration SAH (subarachnoid [...] as of this encounter (statuses as of 02/27/2025) Resolved Problems Problem Noted Date Diagnosed Date [...] as of this encounter (statuses as of 02/27/2025) Immunizations Name Administration Dates Next Due COVID-19 mRNA, LNP-s, No Pre serve, 2-Dose Series ([employer]) 12/26/2021,2021,05/24/2021 Covid-19, Mrna, Lnp-s, Pf, B ivalent, 30 Mcg, IM, 12 yrs and above ([employer]) 09/05/2022 Pneumococcal Conjugate Vacc, 13 Valent (Prevnar) [...] on file documented as of this encounter Last Filed Vital Signs Vital Sign Reading Time Taken Comments Blood Pressure 110/50 02/27/2025 11:51 AM EDT Pulse 70 02/27/2025 11:51 AM EDT Temperature 36.8 °C (98.2 °F) 02/27/2025 11:51 AM E DT Respiratory Rate 16 02/27/2025 11:51 AM EDT Oxygen Saturation 99% 02/27/2025 11:51 AM EDT Inhaled Oxygen Concentration - - Weight 86.9 kg (191 lb 8 oz) 02/27/2025 11:51 AM EDT Height - - Body Mass Index 31.87 01/31/2025 4:00 AM EDT documented in this encounter Functional Status * Are you [...] Meng Saenz RN documented in this encounter Progress Notes * Janice Freeman PA-C - 02/27/2025 12:49 PM EDT Images from the original note were not included. Subjective Sangeeta Diaz is a 79 year old female that presents for Re-Check History of Present Illness Allie Rodriges" is a 79 year old female who presents for a follow-up after a fall resulting malachi head injury and right arm fracture. She is accompanied by her sister. On January 30, 2025, she experienced a fall that resulted in a head injury and a right arm fracture. She was initially taken to the hospital by ambulance, where she spent a week before being transferred to [facility] for rehabilitation for two weeks. She was discharged home on February 08, 2025. Since returning home, she has had variable days, with some being good and others not. She is no longer driving and relies on her sister and others for transportation. She has difficulty with memory, particularly since the fall, and sometimes feels dizzy, especially when getting up quickly. No headaches or chest pain, but she mentions occasional shortness of breathwhen lying down. Her sister is concerned about her ability to manage daily activities independently, including cooking and taking medications. She has a system in place with a pill organizer to help manage her medications. The right arm fracture sustained during the fall is currently in a cast, and she reports no pain atthe moment. Her current medications include alendronate, Wellbutrin, metyrapone, Keppra, levothyroxine, and lorazepam. There was a mention of a missing lorazepam prescription that was not found after discharge from [facility]. She also takes gabapentin for pain management. She reports a weight loss of approximately nine pounds since the fall, which she attributes to not always remembering to eat or not wanting to take the time to prepare meals. She enjoys ice cream andhas some frozen meals available but does not always consume them. She states that she sleeps well at night and occasionally naps during the day. Objective BP 110/50 | Pulse 70 | Temp 98.2 °F (36.8 °C) (Tympanic) | Resp 16 | Wt 191 lb 8 oz (86.9 kg) | SpO2 99% | BMI 31.87 kg/m² | BSA 2 m² BP Readings from Last 3 Encounters: 02/27/25 110/50 02/03/25 116/55 11/29/24 114/56 Wt Readings from Last 3 Encounters: 02/27/25 191 lb 8 oz (86.9 kg) 02/03/25 196 lb 3.4 oz (89 kg) 11/29/24 204 lb (92.5 kg) Physical Exam VITALS: BP- 110/50 CHEST: Clear to auscultation bilaterally. CARDIOVASCULAR: Normal heart sounds. NEUROLOGICAL: Cranial nerves grossly intact. General: alert, healthy, no distress, well nourished, well developed, comfortable, and cooperative Head: Normocephalic, No masses, lesions, tenderness or abnormalities Eye Exam: PERRLA, extraocular movements intact, conjunctiva are pink and non- injected, sclera clear Oropharynx: no exudate, no erythema, lips, buccal mucosa, and tongue normal, and mucous membranes are moist Neck: supple, no adenopathy, no bruits, thyroid normal size, non-tender, without nodularity Heart: regular rate & rhythm, no murmur, and no gallops Lungs: chest symmetric with normal AP diameter, no chest deformities noted, normal respiratory rateand rhythm, no chest wall tenderness, diaphragmatic excursion normal, lungs clear to auscultation Extremities: less than 2 second capillary refill, no joint deformities, effusion, or inflammation, no edema, no skin discoloration, no clubbing, no cyanosis Neuro Exam: no focal motor/sensory deficits, altered cognitive function from previous visits. Results RADIOLOGY Head CT: Brain hemorrhage (01/31/2025) Brain scan: Follow-up scan (02/21/2025) Results reviewed : None Assessment and Plan Assessment & Plan Closed head injury with brain bleed Sustained a closed head injury with a brain bleed following a fall on January 30, 2025. Underwent hospitalization and rehabilitation. Concerns about cognitive changes post-injury, including memory issues and dizziness. Reports no significant headaches but experiences dizziness when standing quickly. Neurology follow-up is necessary to assess cognitive function and determine driving safety. Family and provider agree she should not drive due to cognitive concerns. 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 Concerns about her ability to perform activities of daily living independently, including cooking and medication management. Neurology input is needed to evaluate cognitive function and determine the need for additionalsupport. - Refer to neurology for further evaluation of cognitive function - Consider home health support for assistance with activities of daily living if needed Right arm fracture Sustained a right arm fracture during the fall on January 30, 2025. The fracture is currently managedwith a cast. No complications reported. - Continue with current cast management Medication management Concerns about her ability to manage medications independently. Uses a pill organizer but there is confusion about some medications, including lorazepam, which was lost after discharge from rehabilitation. - Ensure all current medications are accurately listed and organized - Assist with obtaining a refill for lorazepam if needed - Encourage the use of a pill organizer to maintain medication adherence Nutritional status Experienced weight loss since the fall, with a total loss of approximately 13 pounds since November.Concerns about nutritional intake, as she reports not always eating regular meals and relying on ice cream. Family is encouraged to monitor her eating habits. - Encourage regular meals with adequate protein intake - Consider nutritional supplements if weight loss continues - Monitor weight and nutritional status at follow-up Hypertension Blood pressure is well-controlled, with a recent reading of 110/50 mmHg. Lisinopril was discontinued during hospitalization, and there is no current need to restart it given the low blood pressure readings. - Discontinue lisinopril - Monitor blood pressure regularly to ensure it remains within a safe range Type 2 diabetes mellitus with hemoglobin A1c goal of less than 7.0% ([facility]) (Primary) RACHEL (generalized anxiety disorder) - LORazepam 1 MG Oral Tablet (Ativan); TAKE 1/2 TABLET BY MOUTH EVERY 8 HOURS NEEDED FOR ANXIETY(1/2 TAB UP TO THREE TIMES DAILY). SDH (subdural hematoma) ([facility]) Mild vascular neurocognitive disorder Acquired hypothyroidism Hemiplegia and hemiparesis following cerebral infarction affecting right dominant side ([facility]) Essential (primary) hypertension Other orders - Alendronate Sodium 70 MG Oral Tablet (Fosamax); Take 1 Tablet by mouth once a week. With a full glass of water. Remain upright for 30 minutes after taking. - buPROPion HCl ER (XL) 300 MG Oral Tablet Extended Release 24 Hour (Wellbutrin XL); Take 1 Tablet by mouth in the morning. - Mirtazapine 15 MG Oral Tablet (Remeron); Take 1 Tablet by mouth at bedtime. Wrap-Up Follow Up: Return in about 3 months (around 05/29/2025) for Clinic Visit. | For: Clinic Visit | Check-out note: Schedule with neurology I spent a total of 30-39 minutes (exact time 38 mins) on the date of service in preparation, delivery, and documentation of the care provided to Allie Diaz excluding any time spent in the performance of separately billed services. Text in this note was generated using an ambient documentation service. I discussed the use of a device to record and summarize our discussion today. All persons present during the encounter consented to its use. documented in this encounter Nursing Notes * Neema Olson NA - 02/27/2025 11:32 AM EDT Allie Diaz presents for 3 month recheck. Patient has lisinopril but not listened on her discharge paperwork to continue or listed as a current medication. Unsure if she's supposed to continue taking it. Medications & HM reviewed. documented in this encounter Plan of Treatment Upcoming Encounters Date Type Department Care Team (Late st Contact Info) Description 03/06/2025 2:20 PM EDT Office Visit Neurology [facility] [address] [facility] [place] [address] Rehana White MD [address] [place] [place] [address] 03/08/2025 9:00 AM EDT Imaging Radiology [facility] [address] [place] [phone] 03/08/2025 11:00 AM EDT Office Visit Rheumatology [facility] [address] [place] [phone] Gio Zaragoza CRNP [address] [place] [address] [place] [address] 03/20/2025 10:30 AM EDT Office Visit Orthopaedics [facility] [address] [place] [phone] Jeffrey Zuniga PA-C [address] [place] [phone] 05/30/2025 10:20 AM EDT Office Visit Family Practice [facility] [address] [place] [address] Janice Freeman PA-C [address] [place] [phone] Scheduled Procedures Name Priority Associated Diagnoses Date/Ti me COLONOSCOPY FLEXIBLE PROXIMAL DIAGNOSTIC Recall History of colon polyps Health Maintenance Due Date Last Done Comments Zoster Vaccines (1 of 2) 1996 Adult Wellness Visit 2012 Pneumococcal Vaccine: 50+ Years (3 of 3 - PCV20 or PCV21) 05/06/2023 05/06/2018, 01/29/2008 COVID-19 Vaccine ( season) 2024 09/05/2022, 12/26/2021, 12/26/2021, Additional history exists DXA Scan 12/08/2024 12/08/2022, 11/17, 10/03/2014, Additional history exists B-12 01/26/2025 01/27/2024, 12/2022, 02/01/2021, Additional history exists Diabetic Eye [...] D LEVEL ONCE IN A LIFETIME-USE SMARTSET# [id number] Completed 02/01/2025, 01/15/2023, 07/18/2021, Additional history exists [...] this encounter Medical Devices Implanted Type Area Surgical Nurse Device Identifier Shelf Expiration Date Model / Serial / Lot Sofport Intraocular Posterior Chamber Lens Implanted:Qty: 1 on 02/02/2017 by Gabriel Acosta MD at OR [facility] Right: Eye BAUSCH 05/15/2021 [id number] / [id number] / [id number] Lens Intraoc 29.0 - [id number] - [id number] Implanted:Qty: 1 on 02/09/2017 by Gabriel Acosta MD at OR [facility] Left: Eye BAUSCH 12/16/2018 [id number] / [id number] / [id number] Clip Quick 2.8mm 230cm - [id number] Implanted:Qty: 2 on 11/29/2020 by Sharon Benitez MD at ENDOSCOPY [facility] [employer] 11/15/2022 [id number] / documented as of this encounter Visit Diagnoses Diagnosis Type 2 diabetes mellitus with hemoglobin A1c goal of less than 7.0% ([facility])- Primary RACHEL (generalized anxiety disorder) Generalized anxiety disorder SDH (subdural hematoma) ([facility]) Subdural hemorrhage Mild vascular neurocognitive disorder Acquired hypothyroidism Unspecified hypothyroidism Hemiplegia and hemiparesis following cerebral infarction affecting right dominant side ([facility]CC) Essential (primary) hypertension Unspecified essential hypertension documented in this encounter Advance Directives Documents on File Type Date Recorded Patient Air Twister Winder Expl anation Power of Corporate Secretary 06/08/2020 POWER OF A TTORNEY Power of Corporate Secretary 04/19/2018 POWER OF A TTORNEY DURABLE HEALTH POWER OF SECURITY SPECIALIST * No Code (Latest Code Status on File) Date Activated Date Inactivated Comments 01/30/2025 8:36 PM 02/03/2025 3:31 PM This order r eflects the patients wishes and were consensually agreed upon. Question Answer Comments Discussion of Advance Direct esequiel occurred with: Power of Corporate Secretary/Patient Air Twister Winder Does the patient have a Living Will? Yes, in monica rt and reviewed as current Does the patient have Health Care Power of Corporate Secretary? Yes, in chart and reviewed as current [...] Care Agent (per Health Care Power of Corporate Secretary document) Care Teams Regional Psychiatric Director Relationship Specialty Start Date End Date Lydia February [facility] [address] [place] [address] PCP - General Physician [employer] 05/25/24 documented as of this encounter
--- OUTSIDE RECORDS SUMMARY | 2025-03-08 13:49 | External Medical Summary | Summary of Care ---
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) Procedures MRI BRAIN WITHOUT CONTRAST Rehana White MD [address] [place] [address] Phone: tel: fax: Referral ID Status Reason Start Date Expiration Date V isits Requested Visits Authorized [id number] Authorized 03/06/2025 999 999 Reason for Visit * Reason Comments NEW PATIENT New patient referral from Iraj Higgins PA-C for SDH with hemorrhage CT of head/brain 02/14/25 Results posted to chart Encounter Details Date Type Department Care Team (Late st Contact Info) Description 03/06/2025 2:20 PM EDT Office Visit Neurology [place] [address] [place] [address] Rehana White MD [address] [place] [address] 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)*; SAH (subarachnoid hemorrhage) (HCC) Allergies Active Allergy Reactions Criticality Noted Date Comments Sertraline Hcl 04/26/2012 Leg pain Simvastatin Muscle pain 01/10/2019 Sulfa Antibiotics 08/25/2001 rash documented as of this encounter (statuses as of 03/06/2025) Medications Acetaminophen ER 650 MG Oral Tablet [...] hemoglobin A1c goal of less than 7.0% (HCC) USE STRIP TO CHECK GLUCOSE UP TO TWICE DAILY DIRECTED 200 Strip 3 06/14/20 24 Active metFORMIN HCl ER 500 MG Oral Tablet Extended Release 24 Hour (Glucophage XR)Indications:Typ e 2 diabetes mellitus with hemoglobin A1c goal of less than 7.0% (HCC) TAKE 2 TABLETS BY MOUTH TWICE DAILY [...] TIMES DAILY). 23 Tablet 02/28/20 25 Active Calcium Carbonate 500 MG Oral Tablet Chewable Take 1 Tablet by mouth in the morning and 1 Tablet at noon and 1 Tablet before bedtime. As needed. Active Vitamin D (Cholecalciferol) 25 MCG (1000 UT) Oral Tablet Take by mouth. [facility], or Other Facility Administered Medication [...] as of this encounter (statuses as of 03/06/2025) Active Problems Problem Noted Date Diagnosed Date [...] as of this encounter (statuses as of 03/06/2025) Resolved Problems Problem Noted Date Diagnosed Date [...] as of this encounter (statuses as of 03/06/2025) Immunizations Name Administration Dates Next Due COVID-19 mRNA, LNP-s, No Pre serve, 2-Dose Series ([employer]) 12/26/2021,2021,05/24/2021 Covid-19, Mrna, Lnp-s, Pf, B ivalent, 30 Mcg, IM, 12 yrs and above (Pfizer) 09/05/2022 Pneumococcal Conjugate Vacc, 13 Valent (Prevnar) [...] 02/16/2025 Does the household have a re lar source of income? (Household - for ages [...] money to buy more. Never true 02/17/20 Within the past 12 months, t he [...] Sign Reading Time Taken Comments Blood Pressure 119/80 03/06/2025 2:25 PM EDT Pulse 65 03/06/2025 2:25 PM EDT Temperature 37.3 °C (99.1 °F) 03/06/2025 2:25 PM ED T Respiratory Rate 20 03/06/2025 2:25 PM EDT Oxygen Saturation 97% 03/06/2025 2:25 PM EDT Inhaled Oxygen Concentration - - Weight 87.4 kg (192 lb 9.6 oz) 03/06/2025 2:25 P M EDT Height - - Body Mass Index 32.05 01/31/2025 4:00 AM EDT documented in this [...] documented in this encounter Progress Notes * Rehana White MD - 03/06/2025 3:15 PM EDT Images from the original note were not included. Subjective Sangeeta Diaz is a 79 year old female presenting for NEW PATIENT (New patient referral from Iraj Higgins PA-C for SDH with hemorrhage CT of head/brain 02/14/25 Results posted to chart ) History of Present Illness Allie Rodriges" is a 79-year-old female with a history of stroke who presents with memory issues and a recent fall. She has a history of a stroke in 2017, left MCA which has led to ongoing memory issues and word-finding difficulty. Since the stroke, there has been a gradual worsening of memory, with particular difficulty in word finding and short-term memory. Her sister notes that memory issues have become more noticeable after a recent fall although had gradually progressed prior On January 30, she fell in a [employer] parking lot, resulting in a hospital admission due to some bleeding. She was admitted to [facility] and observed. CTA of the head which I have reviewed isas follows Exam End Date Exam End Time 01/31/2025 12:[address] HEAD/BRAIN WO CONTRAST Order: [id number] Status: Final result Visible to patient: Yes (seen) Next appt: 03/07/2025 at 10:30 AM in *Neuro* (Neurophysiology Tech) Dx: SAH (subarachnoid hemorrhage) (HCC); ... 0 Result Notes Details Reading Physician Reading Date Result Priority Abraham Barajas MD [phone] 01/31/2025 Afua Suarez MD [phone] 01/31/2025 Narrative & Impression EXAM CT HEAD WITHOUT CONTRAST -01/31/2025 12:00 am HISTORY Follow up slightly worsening SDH. COMPARISON CT head dated 01/30/2025 at 17:16 p.m. and 12:[address] scan of the head was performed without intravenous contrast. Axial, coronal, and sagittal reformats were obtained. FINDINGS Redemonstrated small volume subarachnoid hemorrhage along the right frontal lobe, unchanged. A small anterior parafalcine subdural hematoma is again seen and appears unchanged. No evidence of new areas of hemorrhage. No midline shift, downward tentorial herniation, or hydrocephalus. The basal cisterns are patent. Global brain volume loss with proportionate prominence of the ventricles and sulci. Patchy and confluent foci of hypoattenuation in the subcortical and periventricular white matter are nonspecific and may represent sequela of chronic microvascular ischemia. Chronic encephalomalacia along the left te mporoparietal lobe compatible with a remote left MCA territory infarct. Small lacunar infarct at the left caudate head. Redemonstrated chronic calcification of a left distal M 2 branch. Mild intracranial atherosclerosis. Small right facial contusions/laceration. The underlying calvarium is intact. Small pilar versus epidermal inclusion cyst in the right parietal scalp. Mild mucosal thickening of the left maxillary sinus. Bilateral mastoid air cells are clear. The [place] ocular lenses have been surgically replaced. IMPRESSION IMPRESSION Unchanged small volume subarachnoid hemorrhage along the right frontal lobe and small anterior parafalcine subdural hematoma. No evidence of new or progressive hemorrhage. I have personally reviewed this examination and agree with the She does not recall the details of the fall She was observed and then transferred to [facility] for rehabilitation for about a week, being discharged on February 15. Since the fall, she has not driven and has experienced increased memory difficulties. Since discharge from rehab She lives alone and faces challenges with daily activities. Her sister reports she has not been doing her laundry, has lost interest in social activities, and has lost weight (approximately 9-13 pounds). She is not eating properly and has refused home nursing services. Her sister has taken over managing her medications and finances since the fall. However her sister does not live at the home and her sister is uncertain if she is taking her medications. Her ability to cook is unknown. She can call her sister but her sister does not know if she would be able to call 911 in an emergency. The patient denies any headaches. There have not been any falls. Been not no loss of consciousness Her current medications include Plavix, Prozac, gabapentin, thyroid medication, lorazepam, metformin, and Remeron. She is no longer taking subcutaneous heparin or Keppra. She has a history of depression, diabetes, macular degeneration, and hypothyroidism. She has received multiple injections in her right eye for macular degeneration and has had cataract surgery and a thyroid lesion removed. She does not smoke, drink alcohol, or use drugs. She lives alone with her cat and has not been driving since her fall. Her family is concerned about her safety living alone due to her memory issues and recent fall. She felt dizzy prior to her fall and denies any new medications or changes in dosage before the fall. No episodes of unconsciousness. Past Medical History: Diagnosis Date Benign neoplasm of colon 10/05/09 repeat colonoscopy in 5 yrs Cerebrovascular accident (CVA) due to embolism of left middle cerebral artery (HCC) 04/15/2018 Depressive disorder, not elsewhere classified 1998 reactive depression Diverticulosis of colon DM type 2, goal A1c below 7 09/13/2009 Per Diabetes Taxonomy. Dyslipidemia, goal LDL below 160 abt 2001 on Zocor Exudative age-related macular degeneration of right eye with active choroidal neovascularization (HCC) RACHEL (generalized anxiety disorder) 07/20/2019 Headache(784.0) on foricet History of uterine fibroid 07/06/2018 Hypothyroidism abt 1999 from goiter Impaired fasting glucose 04/15/2005 134 03/2005 Need for prophylactic hormone replacement therapy (postmenopausal) d/alexa 1997, LMP 1985 OTHER chronic mechanical back Personal history of colonic polyps 04/07/2005 colonoscopy 09/19, villous adenoma, FU due 09/20 Uterine leiomyoma Past Surgical History: Procedure Laterality Date BIOPSY OF UTERUS LINING 1998 COLONOSCOPY W/ LESION REMOVAL, SNARE 10/05/2009 path benign/repeat colonoscopy in 5 yrs COLONOSCOPY, DIAGNOSTIC (RECTUM) 11/07/2014 diverticulosis, repeat 5 yrs/COLONOSCOPY FLEXIBLE PROXIMAL DIAGNOSTIC performed by Bladimir Tinoco MD at [facility] COLONOSCOPY, DIAGNOSTIC (RECTUM) 11/29/2020 adenomatous polyp, divderticulosis, repeat 5 yrs / COLONOSCOPY FLEXIBLE PROXIMAL DIAGNOSTIC performed by Sharon Benitez MD at [facility]OSCOPY [facility] COLONOSCOPY, REMOVE LESION 09/2004 tubulovillous adenoma. f/u 1 yr. COLONOSCOPY, REMOVE LESION 12/18/2005 hyperplastic 3 mm polyp, Dr Tinoco, [facility], repeat 2008 DEXA SCAN/BONE MINERAL AXIAL 2002 ok repeat in 2006 DIABETIC EYE EXAM 08/02/2012 no diabetic retinopathy FLEX SIG, GI REFERRAL OP 04/05/1999 polyps; diverticulitis INFORMATION labor and del x 3 INJECTION OF EYE DRUG Right 03/26/2017 # 1 Eylea OD, Dr. Falcon INJECTION OF EYE DRUG Right 04/29/2017 # 2 Eylea OD, INJECTION OF EYE DRUG Right 07/23/2017 # 3 Eylea OD, Dr. Falcon INJECTION OF EYE DRUG Right 08/26/2017 # 4 Eylea OD, INJECTION OF EYE DRUG Right 10/22/2017 # 5 Eylea OD, Dr. Falcon INJECTION OF EYE DRUG Right 12/24/2017 # 6 Eylea OD, INJECTION OF EYE DRUG Right 01/27/2018 # 7 Eylea OD, Dr. Falcon INJECTION OF EYE DRUG Right 03/04/2018 # 8 Eylea OD, Dr. Falcon INJECTION OF EYE DRUG Right 04/07/2018 # 9 Eylea OD, Dr. Falcon INJECTION OF EYE DRUG Right 05/13/2018 # 10 Eylea OD, INJECTION OF EYE DRUG Right 06/23/2018 # 11 Eylea OD, Dr. Falcon INJECTION OF EYE DRUG Right 08/25/2018 # 12 Eylea OD, INJECTION OF EYE DRUG Right 10/27/2018 # 13 Eylea OD, Dr. Falcon INJECTION OF EYE DRUG Right 12/30/2018 # 14 Eylea OD, INJECTION OF EYE DRUG Right 02/23/2019 # 15 Eylea OD, Dr. Falcon INJECTION OF EYE DRUG Right 04/20/2019 # 16 Eylea OD, INJECTION OF EYE DRUG Right 06/15/2019 # 17 Eylea OD, Dr. Falcon INJECTION OF EYE DRUG Right 08/10/2019 # 1 Lucentis 0.5mg OD, Dr. Falcon INJECTION OF EYE DRUG Right 09/22/2019 #18 Eylea OD, INJECTION OF EYE DRUG Right 11/02/2019 # 19 Eylea OD, INJECTION OF EYE DRUG Right 12/14/2019 # 20 Eylea OD, Dr. Falcon INJECTION OF EYE DRUG Right 02/08/2020 # 21 Eylea OD, Dr. Falcon INJECTION OF EYE DRUG Right 03/28/2020 # 22 Eylea OD, Dr. Falcon INJECTION OF EYE DRUG Right 05/09/2020 # 23 Eylea OD, Dr. Falcon INJECTION OF EYE DRUG Right 06/15/2020 # 24 Eylea OD, INJECTION OF EYE DRUG Right 08/02/2020 # 25 Eylea OD, Dr. Falcon INJECTION OF EYE DRUG Right 09/12/2020 # 26 Eylea OD, Dr. Falcon INJECTION OF EYE DRUG Right 10/17/2020 # 27 Eylea OD, Dr. Falcon INJECTION OF EYE DRUG Right 12/05/2020 # 28 Eylea OD, Dr. Falcon INJECTION OF EYE DRUG Right 01/09/2021 # 29 Eylea OD, Dr. Falcon INJECTION OF EYE DRUG Right 02/27/2021 # 30 Eylea OD, INJECTION OF EYE DRUG Right 04/18/2021 # 31 Eylea OD, INJECTION OF EYE DRUG Right 06/13/2021 #32 Eylea OD, Dr Falcon INJECTION OF EYE DRUG Right 08/15/2021 # 33 Eylea OD, Dr. Falcon INJECTION OF EYE DRUG Right 09/26/2021 # 34 Eylea OD, INJECTION OF EYE DRUG Right 11/11/2021 #[address] Falcon INJECTION OF EYE DRUG Right 12/25/2021 # 36 Eylea OD, Dr. Falcon INJECTION OF EYE DRUG Right 02/06/2022 # 37 Eylea OD, Dr. Falcon INJECTION OF EYE DRUG Right 03/27/2022 # 38 Eylea OD, Dr. Falcon INJECTION OF EYE DRUG Right 05/16/2022 # 39 Eylea OD, Dr. Falcno INJECTION OF EYE DRUG Right 07/25/2022 # 40 Eylea OD, Dr. Falcon INJECTION OF EYE DRUG Right 09/05/2022 # 41 Eylea OD, Dr. Falcon INJECTION OF EYE DRUG Right 10/24/2022 # 42 Eylea OD, Dr. Falcon INJECTION OF EYE DRUG Right 12/11/2022 #43 EYLEA OD; DR FALCON INJECTION OF EYE DRUG Right 01/29/2023 # 44 Eylea OD, Dr. Falcon INJECTION OF EYE DRUG Right 03/26/2023 # 45 Eylea OD, Dr. Falcon INJECTION OF EYE DRUG Right 05/26/2023 # 46 Eylea OD, Dr. Falcon INJECTION OF EYE DRUG Right 08/04/2023 #47 Eylea OD; Dr Falcon INJECTION OF EYE DRUG Right 09/29/2023 #48 Eylea OD, Dr. Falcon INJECTION OF EYE DRUG Right 12/11/2023 # 49 Eyela OD, Dr. Falcon INJECTION OF EYE DRUG Right 02/09/2024 # 50 Eylea OD, Dr. Falcon INJECTION OF EYE DRUG Right 04/19/2024 # 51 Eylea OD, Dr. Falcon INJECTION OF EYE DRUG Right 06/16/2024 #52 Eylea OD, Dr. Falcon INJECTION OF EYE DRUG Right 08/16/2024 #53 Eylea OD, Dr. Falcon INJECTION OF EYE DRUG Right 10/21/2024 #54 Eylea OD, Dr. Falcon INJECTION OF EYE DRUG Right 12/16/2024 # 55 Eylea OD, Dr. Falcon LIGATE/CUT OVIDUCT(S) 1974 MAMMOGRAM - BILATERAL 01/07/2005 birad 2 MAMMOGRAM - BILATERAL 06/23/2008 birad code 2 MAMMOGRAM SCREENING-BILATERAL 01/04/2004 bengin findings, yearly mammograms appropriate, birad code 2 MISCELLANEOUS ORDER ([facility] ONLY) Right 03/26/2017-03/26/2018 EYLEA OD CONSENT SIGNED, Dr. Terrie BYRNECELLANEOUS ORDER ([facility] ONLY) Right 04/07/2018-04/07/2019 Eylea OD consent signed, Dr. Terrie BYRNECELLANEOUS ORDER ([facility] ONLY) ACT 112 SIGNED, Dr. Falcon (12-30-2018) MISCELLANEOUS ORDER ([facility] ONLY) Right 04/20/2019-04/20/2020 Eylea OD consent signed, Dr.Cessna BYRNECELLANEOUS ORDER ([facility] ONLY) Right 08/10/2019-08/10/2020 LUCENTIS 0.5MG CONSENT OD SIGNED; DR FALCON MISCELLANEOUS ORDER ([facility] ONLY) Right 05/09/2020-05/09/2021 Eylea OD consent signed, OTHER Eylea OD Consent signed 06/13/2021-06/13/22 OTHER (INFORMATION) EYLEA OU CONSENT SIGNED Dr. Corbin (exp 07-25-23) OTHER (INFORMATION) CONSENT OU EYLEA exp 08/04/24; Dr Falcon OTHER (INFORMATION) Eylea OU consent Dr. Corbin expires 08/16/2025 REMOVAL OF THYROID LESION 1999 REMOVE CATARACT, INSERT LENS PROSTH Right 02/02/2017 right EXTRACAPSULAR CATARACT REMOVAL WITH INTRAOCULAR LENS performed by Gabriel Acosta MD at [facility] REMOVE CATARACT, INSERT LENS PROSTH Left 02/09/2017 left EXTRACAPSULAR CATARACT REMOVAL WITH INTRAOCULAR LENS performed by Gabriel Acosta MD at 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 Tobacco Use Smoking status: Never Smokeless tobacco: Never Vaping Use Vaping status: Never Used Substance and Sexual Activity Alcohol use: Not Currently Comment: rare Drug use: No Sexual activity: Not Currently Partners: Male control/protection: Surgical Other Topics Concern Service No Blood Transfusions Yes Comment: after miscarriage in 1967 Caffeine Concern No Occupational Exposure No Hobby Hazards No Sleep Concern No Stress Concern No Weight Concern Yes Special Diet No Back Care No Exercise No Bike Helmet Not Asked Seat Belt Yes Self-Exams Yes Social History Narrative born in [facility] in [place] since 1963 Social Needs Financial Resource Strain: Low Risk (02/16/2025) Financial Resource Strain Do you have any trouble paying for your medications, or do you think you might in the future? (Adult - for ages 18 years and over): No Does your family have trouble paying for medicine? (Household - for ages 0-17 years): Not on file Food Insecurity: No Food Insecurity (02/16/2025) Food Insecurity Worried About Running Out of Food in the Last Year: Never true Ran Out of Food in the Last Year: Never true Do you need food for this week? (Adult - for ages 18 years and over): No Transportation Needs: No Transportation Needs (02/16/2025) Transportation Needs Do you have trouble getting a ride to medical visits or work? (Adult - for ages 18 years and over):Not on file Does your family have a hard time getting a ride to doctors’ visits? (Household - for ages 0-17 years): Not on file Has lack of transportation kept you from medical appointments, meetings, work, or from getting things needed for daily living? Check all that apply. (Adult - for ages 18 years and over): No Do you (or your family) have trouble finding or paying for a ride (transportation)? (Household - for ages 0-17 years): Not on file Social Connections: Socially Isolated (02/16/2025) Social Connections How often do you feel lonely or isolated from those around you? (Adult - for ages 18 years and over): Often Housing Stability: Low Risk (02/16/2025) Housing Stability Do you currently live in a usp or have no steady place to sleep at night? (Adult - for ages 18 years and over): No Do you think you are at risk of becoming homeless? (Adult - for ages 18 years and over): Not on file Does your family worry about paying for your home or becoming homeless? (Household - for ages 0-17 years): Not on file Are you homeless or worried that you might be in the future? (Adult - for ages 18 years and over): No Are you (or your family) homeless or worried that you might be in the future? (Household - for ages0-17 years): Not on file Family History Problem Relation Name Age of Onset Eye Problems Father AMD Eye Problems Sister AMD Cancer Father lung Diabetes Father niddm Diabetes Mother iddm Diabetes Sister iddm Cancer Sister uterine ca Heart Disorder Sister Heart Disorder Mother chf Gastro-intestinal disorder Sister diverticulitis Heart Disorder Son fatal [place] at age 49 No Past Hx Son Glaucoma Other Denies family hx Breast Cancer Grandmother (Maternal) Current Outpatient Medications Medication Sig Dispense Refill Calcium Carbonate 500 MG Oral Tablet Chewable Take 1 Tablet by mouth in the morning and 1 Tablet atnoon and 1 Tablet before bedtime. As needed. Vitamin D (Cholecalciferol) 25 MCG (1000 UT) Oral Tablet Take by mouth. Alendronate Sodium 70 MG Oral Tablet (Fosamax) Take 1 Tablet by mouth once a week. With a full glass of water. Remain upright for 30 minutes after taking. 12 Tablet 3 buPROPion HCl ER (XL) 300 MG Oral Tablet Extended Release 24 Hour (Wellbutrin XL) Take 1 Tablet by mouth in the morning. 30 Tablet 11 LORazepam 1 MG Oral Tablet (Ativan) TAKE 1/2 TABLET BY MOUTH EVERY 8 HOURS NEEDED FOR ANXIETY (1/2 TAB UP TO THREE TIMES DAILY). 23 Tablet 0 Mirtazapine 15 MG Oral Tablet (Remeron) Take 1 Tablet by mouth at bedtime. 90 Tablet 3 Clopidogrel Bisulfate 75 MG Oral Tablet (Plavix) Take 1 Tablet by mouth in the morning. 30 Tablet 5 Gabapentin 300 MG Oral Capsule (Neurontin) Take 1 Capsule by mouth at bedtime. 90 Capsule 3 Levothyroxine Sodium 125 MCG Oral Tablet (Levoxyl) TAKE 1 TABLET BY MOUTH IN THE MORNING AT LEAST 30 MINUTES PRIOR TO OTHER MEDICATIONS OR BREAKFAST 90 Tablet 0 FLUoxetine HCl 40 MG Oral Capsule (PROzac) Take 1 capsule by mouth in the morning 90 Capsule 1 metFORMIN HCl ER 500 MG Oral Tablet Extended Release 24 Hour (Glucophage XR) TAKE 2 TABLETS BY MOUTH TWICE DAILY WITH MORNING MEAL AND WITH EVENING MEAL 360 Tablet 1 OneTouch Ultra In Vitro Strip (Glucose Blood) USE STRIP TO CHECK GLUCOSE UP TO TWICE DAILY DIRECTED 200 Strip 3 Atorvastatin Calcium 40 MG Oral Tablet (Lipitor) Take 1 Tablet by mouth in the morning. 90 Tablet 2 Hydrocortisone 2.5 % External Lotion Apply to ear canal daily as needed for itching. 118 mL 3 Acetaminophen ER 650 MG Oral Tablet Extended Release Take 1 Tablet by mouth every 8 hours as neededfor Pain, Moderate. Current Facility-Administered Medications Medication Dose Route Frequency Provider Last Rate Last Admin Aflibercept (Eylea) intraviteal prefilled syringe 2 mg 2 mg Intravitreal PRN 2 mg at 12/16/24 1132 ROPivacaine (Naropin) inj 1.5 mg 1.5 mg Injection PRN 1.5 mg at 12/16/24 1132 Review of patient's allergies indicates: Allergen Reactions Sertraline Hcl Leg pain Simvastatin Muscle pain Sulfa Antibiotics rash Objective BP 119/80 | Pulse 65 | Temp 37.3 °C (99.1 °F) (Skin) | Resp 20 | Wt 87.4 kg (192 lb 9.6 oz) | SpO2 97% | BMI 32.05 kg/m² | BSA 2 m² Physical Exam Patient is a well-developed female in no distress this is a systolic murmur heard best over the aortic area there are no carotid bruits. Head is normocephalic atraumatic pupils are equal I could not reliably visualize the optic nerves santos were full there is a flattening of the right nasolabial fold spontaneous speech is mildly dysphasic. She could only follow a 2/3 step command. What was the mini mental exam score? 6 What is today's date? 0 What is today's year? 0 What is the month? 0 What day is today? 0 What season is it? 0 What is the name of this hospital/clinic? 0 What floor are we on? 0 downstairs What town/city are we in? 1 What county are we in? 1 What state are we in? 0 Did the patient repeat ball? 0 Did the patient repeat flag? 0 Did the patient repeat tree? 1 Ask the patient to begin with 100 and count backwards by 7. 0 Was the patient response 93. 0 Was the patient response 86? 0 Was the response 79? 0 Was the response 72? 0 Was the response 65? 0 Ask the patient to spell world backwards. 0 Did the patient respond D? 0 Did the patient respond L? 0 Did the patient respond R? 0 Did the patient respond O? 0 Did the patient respond W? 0 Ask the patient to recall the three words you previously asked. 0 Did the patient respond ball? 0 Did the patient respond flag? 0 Did the patient respond tree? 0 Show the patient a watch and ask what it is. 0 wallet Show the patient a pencil and ask what it is. 0 football Ask the patient to repeat No ifs, ands or buts. 0 Ask pt to take a paper in their hand, fold in half and place on floor 1 Patient takes paper in hand 1 Patient folds paper in half [address] paper on the floor 1 Hold card "Close eyes". Ask pt. to read and do what it says 0 Give pt. paper and ask to write a sentence. 0 I can't do that Show pt. drawing of intersecting pentagons. Ask pt. to draw 0 I can't do that on mini-mental status testing she scores a 6/30 although 1 would think that she should be able to perform better her language probably interferes. She is awake and alert the right-handed is casted the right leg may be mildly weaker than the left there is no obvious hemiparesis on gait testing reflexes are symmetric and toes are downgoing Results Assessment and Plan Assessment & Plan Memory impairment Memory impairment has worsened since a stroke in 2016, with a recent fall in January 2025 possibly exacerbating the condition. Patient appears to have had a traumatic subarachnoid hemorrhage Concerns about safety living alone arise due to memory issues, weight loss, and inability to perform daily activities. Differential diagnosis includes potential head injury from the fall, possible seizures, o She is not currently safe to live alone. Order an MRI of the brain to assess for new changes or bleeding new stroke microhemorrhages possibly associated with amyloid angiopathy and an EEG to evaluate for possible seizures. Coordinate with the area agency on [employer] for a home safety assessment. Discuss with family the need for supervision or alternative living arrangements beginning no. Consider short-term admission to a hospital or nursing facility for safety and further evaluation. This patient either to their needs to have someone staying with her or she needs to stay with someone else Stroke A stroke in 2016 resulted in residual memory impairment and language difficulties. The recent fall may have caused further cognitive decline, raising concerns about potential head injury and its impact on cognitive function. Goals of Care Safety concerns about living alone due to memory impairment and inability to perform daily activities were discussed. Emphasis was placed on the need for supervision or alternative living arrangements to ensure safety. She prefers family assistance over professional home care services. Discuss withfamily the need for supervision or alternative living arrangements. Coordinate with the area agencyon aging for a home safety assessment. Follow-up Follow-up plans include ensuring safety and further evaluation of memory impairment. Order an MRI of the brain to assess for new changes or bleeding and an EEG to evaluate for possible seizures. Coordinate with the area agency on [employer] for a home safety assessment. Wrap-Up Follow-up: Return in about 4 weeks (around 04/03/2025). | Check-out note: Sched mri Eeg Patient may not drive Text in this note was generated using an ambient documentation service. I discussed the use of a device to record and summarize our discussion today. All persons present during the encounter consented to its use. documented in this encounter Nursing Notes * Angela Bustamante LPN - 03/06/2025 2:24 PM EDT Chief Complaint Patient presents with NEW PATIENT New patient referral from Iraj Higgins PA-C for SDH with hemorrhage CT of head/brain 02/14/25 Results posted to chart documented in this encounter Plan of Treatment Upcoming Encounters Date Type Department Care Team (Late st Contact Info) Description 03/07/2025 10:30 AM EDT NeuroDiagnostic Study Neurophysiology [facility] [place] [address] [place] [address] Sp, Neurophys Tech [address] [place] [address] 03/08/2025 9:00 AM EDT Imaging Radiology [facility] [address] [place] [phone] 03/08/2025 11:00 AM EDT Office Visit Rheumatology [facility] [address] [place] [phone] Gio Zaragoza CRNP [address] [place] [phone] 03/20/2025 10:30 AM EDT Office Visit Orthopaedics [facility] [address] [place] [phone] Jeffrey Zuniga PA-C [address] [place] [phone] 03/28/2025 11:45 AM EDT Imaging Radiology [facility] 1st Floor, [place] [address] [place] [phone] 05/30/2025 10:20 AM EDT Office Visit Family Practice [facility] [address] [place] [address] Janice Freeman PA-C [address] [facility] [place] [address] Scheduled Orders Name Type Priority Associated Diagnoses Orde r Schedule MRI BRAIN WITHOUT CONTRAST Medical Imaging Routine SAH (subarachnoid hemorrhage) (HCC) 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) Ordered: 03/06/2025 EEG ROUTINE Procedures Routine SAH (subarachnoid hemorrhage) (HCC) 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 Right: Eye [employer]USCH 05/15/2021 [id number] / [id number] / [id number] Lens Intraoc 29.0 - [id number] - [id number] Implanted:Qty: 1 on 02/09/2017 by Gabriel Acosta MD at OR 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 Question Answer Comments Discussion of Advance Direct esequiel occurred with: Power of Box Gluer/Patient Sheep Clipper Does the patient have a Living Will? Yes, in monica rt and reviewed as current Does the patient have Health Care Power of Box Gluer? Yes, in chart and reviewed as current [...] Care Agent (per Health Care Power of Box Gluer document) Care Teams Port Crane Operator Relationship Specialty Start Date End Date LydiaFebruary DONY Santos [address] [place] [address] PCP - General Physician Boxing Instructor 05/25/24 documented as of this encounter
--- OUTSIDE RECORDS SUMMARY | 2025-03-08 13:49 | External Medical Summary | Summary of Care ---
Author Name Unknown Organization [facility] Address [address] [place] [address] Phone [phone] Care Team Providers Care Gelatin Powder Mixer Name Role Phone Janice Freeman DONY Primary Care Provider [phone] Reason for Visit * Reason Onset Date Comments Med Request 02/16/2025 Encounter Details Date Type Department Care Team (Late st Contact Info) Description 02/16/2025 Telephone Care Coordination and Integration [address] [place] [address] Humberto Fischer RN [address], [place] [id number] Med Request Allergies Active Allergy Reactions Criticality Noted Date Comments Sertraline Hcl 04/26/2012 Leg pain Simvastatin Muscle pain 01/10/2019 Sulfa Antibiotics 08/25/2001 rash documented as of this encounter (statuses as of 02/20/2025) Medications Multiple Vitamins-Minerals (PRESERVISION AREDS 2) Capsule [...] of less than 7.0% ([facility]) USE STRIP TO CHECK GLUCOSE UP TO TWICE DAILY DIRECTED 200 Strip 3 06/14/20 24 Active metFORMIN HCl ER 500 MG Oral Tablet Extended Release 24 Hour (Glucophage XR)Indications:Typ e 2 diabetes mellitus with hemoglobin A1c goal of less than 7.0% ([facility]) TAKE 2 TABLETS BY MOUTH TWICE [...] before bedtime. 10 Capsule 02/04/20 25 Active Clopidogrel Bisulfate 75 MG Oral Tablet (Plavix) Take 1 Tablet by mouth in the morning. 30 Tablet 5 02/17/20 25 Active Hospital, Clinic, or Other Facility [...] as of this encounter (statuses as of 02/20/2025) Active Problems Problem Noted Date Diagnosed Date [...] as of this encounter (statuses as of 02/20/2025) Resolved Problems Problem Noted Date Diagnosed Date [...] as of this encounter (statuses as of 02/20/2025) Immunizations Name Administration Dates Next Due COVID-19 mRNA, LNP-s, No Pre serve, 2-Dose Series (Sprout) 12/26/2021,2021,05/24/2021 Covid-19, Mrna, Lnp-s, Pf, B ivalent, [...] of Assessment Author No 01/30/2025 7:53 PM Meng Patel RN * Are you blind or do you have serious difficulty seeing, even when wearing glasses? Answer Date of Assessment Author No 01/30/2025 7:53 PM Meng Patel RN * Do you have serious difficulty walking or climbing stairs? (5 years old or older) Answer Date of Assessment Author No 01/30/2025 7:53 PM Meng Patel RN * Do you have difficulty dressing or bathing? (5 years old or older) Answer Date of Assessment Author No 01/30/2025 7:53 PM Meng Patel RN * Because of a physical, mental, or emotional condition, do you have difficulty doing errands alone such as visiting a doctor’s office or shopping? (15 years old or older) Answer Date of Assessment Author No 01/30/2025 7:53 PM Meng Patel RN documented as of this encounter Mental Status * Because of a physical, mental, or emotional condition, do you have serious difficulty concentrating, remembering, or making decisions? (5 years old or older) Answer Entry Date Author Yes 01/30/2025 7:53 PM Meng Patel RN documented in this encounter Miscellaneous Notes * Telephone Encounter - Humberto Fischer RN - 02/20/2025 9:22 AM EDT Spoke with Gladys, patient's sister, she is aware the Plavix was sent to the pharmacy. * Telephone Encounter - Janice Freeman PA-C - 02/16/2025 5:46 PM EDT Prescription for Plavix was sent to the [facility] [place]. * Telephone Encounter - Humberto Fischer RN - 02/16/2025 3:51 PM EDT Patient had telemed with Neurosurgery today 02/16. Per provider, Iraj Higgins PA-C, "Ok to resume Plavix from our standpoint,verify need for medication with prescribing provider". Patient will follow upwith you on 02/27, as she only wants to see you. Please order plavix if you'd like her to restart asok'd by neurosurgery. Thank you documented in this encounter Plan of Treatment Upcoming Encounters Date Type Department Care Team (Late st Contact Info) Description 02/27/2025 11:00 AM EDT Office Visit Family Practice [facility] [address] [facility] [address] [place] [address] Janice Freeman PA-C 200 [facility] [place] [address] 03/08/2025 9:00 AM EDT [facility] [address] [place] [phone] 03/08/2025 11:00 AM EDT Office Visit Rheumatology [facility] [address] [place] [phone] Gio Zaragoza CRNP [address] [place] [address] [place] [address] 03/20/2025 10:30 AM EDT Office Visit Orthopaedics [facility] [address] [place] [phone] Jeffrey Zuniga PA-C [address] [place] [phone] Scheduled Procedures Name Priority Associated Diagnoses Date/Ti [...] D LEVEL ONCE IN A LIFETIME-USE SMARTSET# [id number] Completed 02/01/2025, 01/15/2023, 07/18/2021, Additional history exists [...] this encounter Medical Devices Implanted Type Area Automobile Taillight Assembler Device Identifier Shelf Expiration Date Model / Serial / Lot Sofport Intraocular Posterior Chamber Lens Implanted:Qty: 1 on 02/02/2017 by Gabriel Acosta MD at OR [facility] Right: Eye BAUSCH & [employer]OM[employer] 05/15/2021 [id number] / [id number] / [id number] Lens Intraoc 29.0 - [id number] - [id number] Implanted:Qty: 1 on 02/09/2017 by Gabriel Acosta MD at OR [facility] Left: Eye BAUSCH & LOMB 12/16/2018 [id number] / [id number] / [id number] Clip Quick 2.8mm 230cm - [id number] Implanted:Qty: 2 on 11/29/2020 by Sharon Benitez MD at [facility]COPY [facility] [employer] 11/15/2022 [id number] / documented as of this encounter Advance Directives Documents on File Type Date Recorded Patient Mold Maker Expl anation Power of Delivery Driver Assistant 06/08/2020 POWER OF A TTORNEY Power of Delivery Driver Assistant 04/19/2018 POWER OF A TTORNEY DURABLE HEALTH POWER OF REPORTING DEVELOPER * No Code (Latest Code Status on File) Date Activated Date Inactivated Comments 01/30/2025 8:36 PM 02/03/2025 3:31 PM This order r eflects the patients wishes and were consensually agreed upon. Question Answer Comments Discussion of Advance Direct esequiel occurred with: Power of Delivery Driver Assistant/Patient Mold Maker Does the patient have a Living Will? Yes, in monica rt and reviewed as current Does the patient have Health Care Power of Delivery Driver Assistant? Yes, in chart and reviewed as current [...] Care Agent (per Health Care Power of Delivery Driver Assistant document) Care Teams Gelatin Powder Mixer Relationship Specialty Start Date End Date Janice Freeman PA-C [facility] [address] [place] [address] PCP - General Physician Automatic Beading Lathe Operator 05/25/24 documented as of this encounter
--- OUTSIDE RECORDS SUMMARY | 2025-03-08 13:50 | External Medical Summary ---
Author Name Unknown Address Unknown Organization [id number]:[facility] [address] [place] [address] Laboratory Report Ordering Provider Test Date Status SKYLER THOMPSON 02/11/2025 06:16:28 Final Observation Date Value Abnormality Reference (Units ) Status WBC, Total 02/11/2025 06:16:28 6.26 4.00-10.8 0 (K/uL) Final RBC 02/11/2025 06:16:28 3.75 3.85-5.15 (M/uL) Final Hemoglobin 02/11/2025 06:16:28 10.8 Below low normal 12 .0-15.3 (g/dL) Final HCT 02/11/2025 06:16:28 34.4 Below low normal 36. 0-45.2 (%) Final MCV 02/11/2025 06:16:28 91.7 81.5-97.5 (fL) Final MCH 02/11/2025 06:16:28 28.8 27.0-34.0 (pg) Final MCHC 02/11/2025 06:16:28 31.4 32.0-36.0 (g/dL) Final RDW 02/11/2025 06:16:28 15.9 11.5-15.5 (%) Final Platelets 02/11/2025 06:16:28 292 140-400 (K /uL) Final MPV 02/11/2025 06:16:28 9.5 6.6-11.1 ( fL) Final Performing Location [facility] [address] [place] [address]
--- OUTSIDE RECORDS SUMMARY | 2025-03-08 13:50 | External Medical Summary ---
Author Name Unknown Address Unknown Organization K01:LABORATORY [facility] - [address] [place] [address] Laboratory Report Ordering Provider Test Date Status SHREYA VARGAS 02/07/2025 05:38:28 Final Observation Date Value Abnormality Reference (Units ) Status T4, Free 02/07/2025 05:38:28 1.1 0.9-1.7 (n g/dL) Final Performing Location [facility]ORY [facility] - [address] [place] [address]
--- OUTSIDE RECORDS SUMMARY | 2025-03-08 13:50 | External Medical Summary ---
Author Name Unknown Address Unknown Organization [id number]:[facility] [address] [place] [address] Laboratory Report Ordering Provider Test Date Status SKYLER THOMPSON 02/04/2025 06:00:00 Final Observation Date Value Abnormality Reference (Units ) Status WBC, Total 02/04/2025 06:00:00 6.04 4.00-10.8 0 (K/uL) Final RBC 02/04/2025 06:00:00 3.72 3.85-5.15 (M/uL) Final Hemoglobin 02/04/2025 06:00:00 10.5 Below low normal 12 .0-15.3 (g/dL) Final HCT 02/04/2025 06:00:00 34.2 Below low normal 36. 0-45.2 (%) Final MCV 02/04/2025 06:00:00 91.9 81.5-97.5 (fL) Final MCH 02/04/2025 06:00:00 28.2 27.0-34.0 (pg) Final MCHC 02/04/2025 06:00:00 30.7 32.0-36.0 (g/dL) Final RDW 02/04/2025 06:00:00 14.8 11.5-15.5 (%) Final Platelets 02/04/2025 06:00:00 215 140-400 (K /uL) Final MPV 02/04/2025 06:00:00 10.3 6.6-11.1 ( fL) Final Performing Location [facility]ORY [facility] [address] - [address] [place] [address]
--- OUTSIDE RECORDS SUMMARY | 2025-03-08 13:50 | External Medical Summary | Summary of Care ---
Author Name Unknown Organization [facility] Address [address] [place] [address] Phone [phone] Care Team Providers Care Filler Shredder Helper Name Role Phone Janice Freeman DONY Primary Care Provider [phone] Reason for Referral * Evaluate & Treat - Unlimited Visits (Within 10 days (routine)) - Authorized Specialty Diagnoses / Procedures Referred By Kathia wagner Referred To Contact Neurology Diagnoses SDH (subdural hematoma) (HCC) SAH (subarachnoid hemorrhage) (HCC) Iraj Higgins PA-C [address] [place] [address] Phone: tel: fax: Referral ID Status Reason Start Date Expiration Date Visits Requested Visits Authorized [id number] Authorized Specialty Services Required 02/16/[phone] Question Answer Referral Priority Within 10 days (routine) Where should this appointment be scheduled? [facility] Is this referral being placed for insurance purposes ONLY No, patient needs appointment CAD NEUROLOGY REFERRAL QUESTIONS Memory/Cognition Comments Prior stroke patient, questionable vascular dementia, please eval for appropriate diagnosis and work-up Encounter Details Date Type Department Care Team (Late st Contact Info) Description 02/16/2025 1:30 PM EDT Telemedicine Neurosurgery, [facility] [address] [place] [address] Iraj Higgins PA-C [address] [place] [address] SDH (subdural hematoma) (HCC)*; SAH (subarachnoid hemorrhage) (HCC) Allergies Active Allergy Reactions Criticality Noted Date Comments Sertraline Hcl 04/26/2012 Leg pain Simvastatin Muscle pain 01/10/2019 Sulfa Antibiotics 08/25/2001 rash documented as of this encounter (statuses as of 02/16/2025) Medications Multiple Vitamins-Minerals (PRESERVISION AREDS 2) Capsule [...] for pain, severe). 30 mL 02/04/20 25 Active Docusate Sodium 100 MG Oral [...] as of this encounter (statuses as of 02/16/2025) Active Problems Problem Noted Date Diagnosed Date [...] as of this encounter (statuses as of 02/16/2025) Resolved Problems Problem Noted Date Diagnosed Date [...] as of this encounter (statuses as of 02/16/2025) Immunizations Name Administration Dates Next Due COVID-19 mRNA, LNP-s, No Pre serve, 2-Dose Series ([employer]) 12/26/2021,2021,05/24/2021 Covid-19, Mrna, Lnp-s, Pf, B ivalent, [...] No 02/16/2025 Does the household have a [facility] source of income? (Household - for ages [...] Meng Patel RN documented in this encounter Progress Notes * Iraj Higgins PA-C - 02/16/2025 1:55 PM EDT As per patient preference, connection with the patient via audio only occurred. The patient was informed this was a phone call only visit and was identified by name and date of . The patient agreed to participate. Total call duration was 10 minutes. CLINIC NOTE: Neurosurgery, [place] [address] 02/16/2025: 1:55 PM S/P FFS with [facility] and TS on (01/30/25) Allie Diaz is a 79 year old female who presents today in follow up. History of Present Illness Allie Diaz "Sangeeta" is a 79 year old female with a history of stroke, emotional lability and concerns about cognitive function following a head injury. All information related to patient has provided to us by her [id number], Gladys. She sustained a head injury that resulted in a hospital admission, where imaging revealed a small subdural hematoma and bruising on the right side of the brain. Recent imaging shows resolution of these findings. There is no significant change in her mental status or cognition since the injury, although she becomes more confused as the day progresses, a pattern noted since her stroke. She experiences emotional lability, characterized by frequent crying episodes. Her sister reports that she called her crying and expressing feelings of being overwhelmed. This emotional response has been present since before her recent head injury, suggesting a possible stroke-related cause. There is concern for cognitive disorder post-stroke, possibly vascular dementia, which could be contributing to her confusion and emotional lability. A home nurse noted 'dementia' on her papers, but there is no formal diagnosis of dementia in her discharge paperwork. There is mention of a vascular cognitive disorder, which may be related to her stroke history. Her medication history includes the use of Plavix for stroke prevention, but it was not listed on her discharge paperwork from rehab. It is unclear if she has resumed this medication. She has experienced significant personal losses, including the of her and two children, and her son lives far away, which may contribute to her emotional state. Past Medical History: Past Medical History: Diagnosis Date Benign neoplasm [...] due 09/20 Uterine leiomyoma Past Surgical History: Past Surgical History: Procedure Laterality Date BIOPSY OF UTERUS LINING 1998 COLONOSCOPY W/ LESION REMOVAL, SNARE 10/05/2009 path benign/repeat colonoscopy in 5 yrs COLONOSCOPY, DIAGNOSTIC (RECTUM) 11/07/2014 diverticulosis, repeat 5 yrs/COLONOSCOPY FLEXIBLE PROXIMAL DIAGNOSTIC performed by Bladimir Tinoco MD at ENDOSCOPY [facility] COLONOSCOPY, DIAGNOSTIC (RECTUM) 11/29/2020 adenomatous polyp, divderticulosis, repeat 5 yrs / COLONOSCOPY FLEXIBLE PROXIMAL DIAGNOSTIC performed by Sharon Benitez MD at ENDOSCOPY [facility] COLONOSCOPY, REMOVE LESION 09/2004 tubulovillous adenoma. f/u 1 yr. COLONOSCOPY, REMOVE LESION 12/18/2005 hyperplastic 3 mm polyp, Dr Tinoco, [facility], repeat 2008 DEXA SCAN/BONE MINERAL AXIAL [...] Right 09/12/2020 # 26 Eylea OD, Dr. aFlcon INJECTION OF EYE DRUG Right 10/17/2020 # [...] Right 05/16/2022 # 39 Eylea OD, Dr. Falcon INJECTION OF EYE DRUG Right 07/25/2022 # [...] Right 03/26/2017-03/26/2018 EYLEA OD CONSENT SIGNED, Dr. Falcon MISCELLANEOUS ORDER ([facility] ONLY) Right 04/07/2018-04/07/2019 Eylea OD consent signed, Dr. Terrie MELENDEZANEOUS ORDER ([facility] ONLY) ACT 112 SIGNED, Dr. Falcon (12-30-2018) MISCELLANEOUS ORDER ([facility] ONLY) Right 04/20/2019-04/20/2020 Eylea OD consent signed, MISCELLANEOUS ORDER ([facility] ONLY) Right 08/10/2019-08/10/2020 LUCENTIS 0.5MG CONSENT OD SIGNED; DR TERRIE BYRNECELLANEOUS ORDER ([facility] ONLY) Right 05/09/2020-05/09/2021 Eylea OD consent signed, OTHER Eylea OD Consent signed /Cristóbal 06/13/2021-06/13/22 OTHER (INFORMATION) EYLEA OU CONSENT SIGNED Dr. CessLexx (exp 07-25-23) OTHER (INFORMATION) CONSENT OU EYLEA exp 08/04/24; Dr Falcon OTHER (INFORMATION) Eylea OU consent Dr. Falcon/Cristóbal expires 08/16/2025 REMOVAL OF THYROID LESION 1999 REMOVE CATARACT, INSERT LENS PROSTH Right 02/02/2017 right EXTRACAPSULAR CATARACT REMOVAL WITH INTRAOCULAR LENS performed by Gabriel Acosta MD at OR [facility] REMOVE CATARACT, INSERT LENS PROSTH Left 02/09/2017 left EXTRACAPSULAR CATARACT REMOVAL WITH INTRAOCULAR LENS performed by Gabriel Acosta MD at OR [facility] Social History: Social History Socioeconomic History Marital status: Spouse [...] Self-Exams Yes Social History Narrative born in [facility] in [place] since 1963 Social Needs Financial Resource Strain: Not on file Food Insecurity: Unknown (01/30/2025) Food Insecurity Worried About Running Out of Food in the Last Year: Not on file Ran Out of Food in the Last Year: Not on file Do you need food for this week? (Adult - for ages 18 years and over): No Transportation Needs: No Transportation Needs (01/30/2025) Transportation Needs Do you have trouble getting [...] 0-17 years): Not on file Social Connections: Not on file Housing Stability: Low Risk (01/30/2025) Housing Stability Do you currently live in a care home or have no steady place to sleep at night? (Adult - for ages 18 years and over): Not on file Do you think you are at risk [...] for ages0-17 years): Not on file Family History: Family History Problem Relation Name Age of Onset Eye Problems Father AMD Eye Problems Sister AMD Cancer Father lung Diabetes Father niddm Diabetes Mother iddm Diabetes Sister iddm Cancer Sister uterine ca Heart Disorder Sister Heart Disorder Mother chf Gastro-intestinal disorder Sister diverticulitis Heart Disorder Son fatal [place] at age 49 No Past Hx Son Glaucoma Other Denies family hx Breast Cancer Grandmother (Maternal) Current Medications: Current Outpatient Medications Medication Sig Dispense Refill Multiple Vitamins-Minerals (PRESERVISION AREDS 2) Capsule Take 1 Cap by mouth 2 times a day. 60 Cap12 Acetaminophen ER 650 MG Oral Tablet Extended Release Take 1 Tablet by mouth every 8 hours as neededfor Pain, Moderate. Vitamin D3 25 MCG (1000 UT) Oral Tablet (Vitamin D3) Take 1 Tablet by mouth in the morning. Sodium Chloride (Hypertonic) 5 % Ophthalmic Solution Instill 1 Drop into the right eye in the morning and 1 Drop before bedtime. Hydrocortisone 2.5 % External Lotion Apply to ear canal daily as needed for itching. 118 mL 3 Alendronate Sodium 70 MG Oral Tablet (Fosamax) Take 1 Tablet by mouth once a week. With a full glass of water. Remain upright for 30 minutes after taking. 12 Tablet 3 Atorvastatin Calcium 40 MG Oral Tablet (Lipitor) Take 1 Tablet by mouth in the morning. 90 Tablet 2 OneTouch Ultra In Vitro Strip (Glucose Blood) USE STRIP TO CHECK GLUCOSE UP TO TWICE DAILY DIRECTED 200 Strip 3 metFORMIN HCl ER 500 MG Oral Tablet Extended Release 24 Hour (Glucophage XR) TAKE 2 TABLETS BY MOUTH TWICE DAILY WITH MORNING MEAL AND WITH EVENING MEAL 360 Tablet 1 FLUoxetine HCl 40 MG Oral Capsule (PROzac) Take 1 capsule by mouth in the morning 90 Capsule 1 Levothyroxine Sodium 125 MCG Oral Tablet (Levoxyl) TAKE 1 TABLET BY MOUTH IN THE MORNING AT LEAST 30 MINUTES PRIOR TO OTHER MEDICATIONS OR BREAKFAST 90 Tablet 0 buPROPion HCl ER (XL) 300 MG Oral Tablet Extended Release 24 Hour (Wellbutrin XL) Take 1 Tablet by mouth in the morning. 30 Tablet 11 Mirtazapine 15 MG Oral Tablet (Remeron) Take 1 Tablet by mouth at bedtime. 90 Tablet 3 LORazepam 1 MG Oral Tablet (Ativan) TAKE 1/2 TABLET BY MOUTH EVERY 8 HOURS NEEDED FOR ANXIETY (1/2 TAB UP TO THREE TIMES DAILY). 23 Tablet 0 Gabapentin 300 MG Oral Capsule (Neurontin) Take 1 Capsule by mouth at bedtime. 90 Capsule 3 oxyCODONE HCl 5 MG/5ML Oral Solution (Roxicodone) Take 2.5 mL by mouth every 4 hours as needed for Pain, Moderate (may take 5 mg for pain, severe). 30 mL 0 Docusate Sodium 100 MG Oral Capsule (Colace) Take 1 Capsule by mouth in the morning and 1 Capsule before bedtime. 10 Capsule 0 Current Facility-Administered Medications Medication Dose Route Frequency Provider Last Rate Last Admin Aflibercept (Eylea) intraviteal prefilled syringe 2 mg 2 mg Intravitreal PRN 2 mg at 12/16/24 1132 ROPivacaine (Naropin) inj 1.5 mg 1.5 mg Injection PRN 1.5 mg at 12/16/24 1132 Allergies: Review of patient's allergies indicates: Allergen Reactions Sertraline Hcl Leg pain Simvastatin Muscle pain Sulfa Antibiotics rash ROS: As per HPI, all other negative There were no vitals taken for this visit. PHYSICAL EXAMINATION: Physical Exam No exam, telephone consult IMAGING/STUDIES: Results RADIOLOGY CT head: Resolution of small subdural hematoma along the falx cerebri, nearly resolved with a smallportion still appearing thicker. Resolution of small contusions in the right cerebral tissue. 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, recurrent severe without psychotic features (HCC) Thoracic aortic ectasia (HCC) Hemiplegia and hemiparesis following cerebral infarction affecting right dominant side (HCC) Essential (primary) hypertension Age-related osteoporosis without current pathological fracture Generalized anxiety disorder History of cataract extraction Expressive aphasia Dizziness Facial laceration Fall Uterine leiomyoma Abnormal gait Back pain Benign paroxysmal positional vertigo Closed compression fracture of thoracic vertebra (HCC) Diverticulosis Macular degeneration Multiple injuries due to trauma Laceration of brow without complication SAH (subarachnoid hemorrhage) (HCC) SDH (subdural hematoma) (HCC) Hematoma of right thigh Closed fracture of distal end of right radius Contusion of right knee Obesity Impaired mobility and ADLs Gait abnormality A total of 25 minutes were spent in direct provider to patient communication, along with counselingand coordinating care on 02/16/2025 related to this encounter and patient evaluation. This includes (on the same date of encounter) imaging review, chart review (to include prior related documentation), medication review, risk factors related to co-morbidities, education/discussion related to diagnosis/disease process (to include the natural disease progress or progression of traumatic injury), treatment options including conservative management (meds, physical therapy, interventional pain management, rehabilitation medicine), surgical options, and timing related to potential improvement in symptoms. ASSESSMENT/PLAN: Assessment & Plan Subdural hematoma Subdural hematoma along the falx cerebri measures 3mm, near resolution with no active bleeding. - Ok to resume Plavix from our standpoint,verify need for medication with prescribing provider Post-stroke emotional lability Emotional lability with frequent crying post-stroke, possibly exacerbated by head injury and personal factors. Symptoms may be part of post-concussive syndrome. - Monitor emotional symptoms for two months for post-concussive symptoms. Cognitive disorder related to stroke Vascular cognitive disorder related to stroke, with baseline confusion worsening throughout the day. No driving restrictions from head injury, but cognitive function needs evaluation. - Refer to neurology for evaluation. SDH (subdural hematoma) (HCC) (Primary) - ADULT NEUROLOGY REFERRAL OP SAH (subarachnoid hemorrhage) (HCC) - ADULT NEUROLOGY REFERRAL OP -Call NS clinic for questions or concerns Iraj Higgins PA-C Department of Neurosurgery Consent was not obtained to use ambient documentation during this encounter. I used the tool outside of the encounter to assist with generating the note. Parts of this note may have been dictated using the mNectar direct dictation system. There may be spelling errors, changes in the words dictated and words inserted into the note which may have been misinterpreted by the dictation system. These errors should not be used to change the meaning of the intended dictation. documented in this encounter Plan of Treatment Upcoming Encounters Date Type Department Care Team (Late st Contact Info) Description 02/17/2025 1:30 PM EDT Office Visit Orthopaedics [facility] [address] [phone] Jeffrey Zuniga PA-C [address] [phone] 02/27/2025 11:00 AM EDT Office Visit Family Practice [facility] [address] [facility] [place] [address] Janice Freeman PA-C [address] [place] [address] 03/08/2025 9:00 AM EDT Imaging Radiology [facility] [address] [phone] 03/08/2025 11:00 AM EDT Office Visit Rheumatology [facility] [address] [phone] Gio Zaragoza CRNP [address] [place] [address] [place] [address] Scheduled Procedures Name Priority Associated Diagnoses Date/Ti me COLONOSCOPY FLEXIBLE PROXIMAL DIAGNOSTIC Recall History of colon polyps Scheduled Referrals Name Type Priority Associated Diagnoses Orde r Schedule ADULT NEUROLOGY REFERRAL OP Referral Within 10 days (routine) SDH (subdural hematoma) (HCC) SAH (subarachnoid hemorrhage) (HCC) Ordered: 02/16/2025 Health Maintenance Due Date Last Done Comments [...] D LEVEL ONCE IN A LIFETIME-USE SMARTSET# [id number] Completed 02/01/2025, 01/15/2023, 07/18/2021, Additional history exists [...] this encounter Medical Devices Implanted Type Area Felting Machine Operator Device Identifier Shelf Expiration Date Model / Serial / Lot Sofport Intraocular Posterior Chamber Lens Implanted:Qty: 1 on 02/02/2017 by Gabriel Acosta MD at OR [facility] Right: Eye [employer] 05/15/2021 [id number] / [id number] / [id number] Lens Intraoc 29.0 - [id number] - [id number] Implanted:Qty: 1 on 02/09/2017 by Gabriel Acosta MD at OR [facility] Left: Eye [employer] 12/16/2018 [id number] / [id number] / [id number] Clip Quick 2.8mm 230cm - [id number] Implanted:Qty: 2 on 11/29/2020 by Sharon Benitez MD at ENDOSCOPY [facility] [employer] 11/15/2022 [id number] / documented as of this encounter Visit Diagnoses Diagnosis SDH (subdural hematoma) (HCC)- Primary Subdural hemorrhage SAH (subarachnoid hemorrhage) (HCC) Subarachnoid hemorrhage documented in this encounter Advance Directives Documents on File Type Date Recorded Patient Education Teacher Expl anation Power of Director Of Content Marketing 06/08/2020 POWER OF A TTORNEY Power of Director Of Content Marketing 04/19/2018 POWER OF A TTORNEY DURABLE HEALTH POWER OF STOVE CARRIAGE OPERATOR * No Code (Latest Code Status on File) Date Activated Date Inactivated Comments 01/30/2025 8:36 PM 02/03/2025 3:31 PM This order r eflects the patients wishes and were consensually agreed upon. Question Answer Comments Discussion of Advance Direct esequiel occurred with: Power of Director Of Content Marketing/Patient Education Teacher Does the patient have a Living Will? Yes, in monica rt and reviewed as current Does the patient have Health Care Power of Director Of Content Marketing? Yes, in chart and reviewed as current [...] Care Agent (per Health Care Power of Director Of Content Marketing document) Care Teams Filler Shredder Helper Relationship Specialty Start Date End Date Lydia February DONY Santos [address] [place] [address] PCP - General Physician Home Economics Expert 05/25/24 documented as of this encounter
--- OUTSIDE RECORDS SUMMARY | 2025-03-08 13:50 | External Medical Summary | Summary of Care ---
Author Name Unknown Organization [facility] Address [address] [place] [address] Phone [phone] Care Team Providers Care House Calls Nurse Practitioner Name Role Phone Lydia February DONY Primary Care Provider [phone] Reason for Visit * Reason Onset Date Comments Appointment 02/07/2025 Encounter Details Date Type Department Care Team (Late st Contact Info) Description 02/07/2025 Telephone Orthopaedics [facility] [address] [place] [address] Jeffrey Zuniga PA-C [address] [place] [address] Appointment Allergies Active Allergy Reactions Criticality Noted Date Comments Sertraline Hcl 04/26/2012 Leg pain Simvastatin Muscle pain 01/10/2019 Sulfa Antibiotics 08/25/2001 rash documented as of this encounter (statuses as of 02/08/2025) Medications Multiple Vitamins-Minerals (PRESERVISION AREDS 2) Capsule [...] hemoglobin A1c goal of less than 7.0% ([facility]) USE STRIP TO CHECK GLUCOSE UP TO TWICE DAILY DIRECTED 200 Strip 3 06/14/20 24 Active metFORMIN HCl ER 500 MG Oral Tablet Extended Release 24 Hour (Glucophage XR)Indications:Typ e 2 diabetes mellitus with hemoglobin A1c goal of less than 7.0% ([facility]) TAKE 2 TABLETS BY MOUTH TWICE DAILY [...] pain, severe). 30 mL 02/04/20 25 Active Heparin Sodium (Porcine) PF 5000 UNIT/0.5ML Injection Solution Inject 0.5 mL under the skin in the morning and 0.5 mL at noon and 0.5 mL before bedtime. Do all this for 7 days. Or until mobilization has improved at the discretion of the rehab facility provider. 10.5 mL 02/04/20 25 025 Active Docusate Sodium 100 MG Oral Capsule (Colace) Take 1 Capsule by mouth in the morning and 1 Capsule before bedtime. 10 Capsule 02/04/20 Active Sennosides 8.6 MG Oral Tablet (Senokot) Take 2 Tablets by mouth daily as needed for Constipation for up to 5 days. 10 Tablet 02/04/20 025 Active Hospital, Clinic, or Other Facility Administered [...] as of this encounter (statuses as of 02/08/2025) Active Problems Problem Noted Date Diagnosed Date [...] as of this encounter (statuses as of 02/08/2025) Resolved Problems Problem Noted Date Diagnosed Date [...] as of this encounter (statuses as of 02/08/2025) Immunizations Name Administration Dates Next Due COVID-19 mRNA, LNP-s, No Pre serve, 2-Dose Series ([employer]) 12/26/2021,2021,05/24/2021 Covid-19, Mrna, Lnp-s, Pf, B ivalent, [...] Answer Date Recorded PHQ Adult Total Score 3 07/29/2023 Hunger Vital Sign Answer Date Recorded Worried About Running Out of Food in the Last Ye ar Never true 07/20/2019 Ran Out of Food in the Last Year Never true 07/20/2019 Personal Safety Answer Date Recorded Do you feel unsafe or have concerns for your saf ety? No 01/30/2025 Do you have concerns for you r family's safety? (Household - for ages 0-17 years) Not on file 01/30/2025 Utilities Answer Date Recorded Do you have trouble paying y our heating, water, or electric bill? No 01/30/2025 Is your family able to pay t he heat, water, or electric bill? (Household - for ages 0-17 years) Not on file 01/30/2025 Does your family have access to good internet? (Household - for ages 0-17 years) Not on file 01/30/2025 Transportation Needs Answer Date Record ed Do you have trouble getting a ride to medical visits or work? (Adult - for ages 18 years and over) Not on file 01/30/2025 Does your family have a hard time getting a ride to doctors visits? (Household - for ages 0-17 years) Not on file 01/30/2025 Has lack of transportation k ept you from medical appointments, meetings, work, or from getting things needed for daily living? Check all that apply. No 01/30/2025 Do you (or your family) have trouble finding or paying for a ride (transportation)? (Household - for ages 0-17 years) Not on file 01/30/2025 Housing Stability Answer Date Recorded Do you currently live in a s helter or have no steady place to sleep at night? (Adult - for ages 18 years and over) Not on file 01/30/2025 Do you think you are at risk of becoming homeless? (Adult - for ages 18 years and over) Not on file 01/30/2025 Does your family worry about paying for your home or becoming homeless? (Household - for ages 0-17 years) Not on file 0 01/30/2025 Are you homeless or worried that you might be in the future? No 01/30/2025 Are you (or your family) gonzales eless or worried that you might be in the future? (Household - for ages 0-17 years) Not on file Food Insecurity Answer Date Recorded Worried About Running Out of Food in the Last Ye ar Not on file 01/30/2025 Ran Out of Food in the Last Year Not on file 01/30/2025 Do you need food for this week? No 01/30/2025 Comments No Sex and Gender Information Value [...] Assessment Author No 01/30/2025 7:53 PM Meng Patel, RN * Are you blind or do you have serious difficulty seeing, even when wearing glasses? Answer Date of Assessment Author No 01/30/2025 7:53 PM Meng Patel, DEEPAK * Do you have serious difficulty walking [...] encounter Miscellaneous Notes * Telephone Encounter - Heather De Santiago OSA - 02/07/2025 3:23 PM EDT Schedule patient with Jeffrey next week. Schedule as 30 min New per Michelle. I got the pt on per her, and I tried calling, but no answer. I sent them a Voiceit Message. documented in this encounter Plan of Treatment Upcoming Encounters Date Type Department Care Team (Late st Contact Info) Description 02/14/2025 9:45 AM EDT Imaging Radiology [facility] [address] [address] 02/15/2025 1:30 PM EDT Office Visit Orthopaedics [facility] [address] [address] Jeffrey Zuniga PA-C [address] [address] 02/27/2025 11:00 AM EDT Office Visit Family Practice [facility] [place] [address] [place] [address] Janice Freeman PA-C [address] [place] [address] 03/08/2025 9:00 AM EDT Imaging Radiology [facility] [address] [place] [phone] 03/08/2025 11:00 AM EDT Office Visit Rheumatology [facility] [address] [place] [phone] Gio Zaragoza CRNP [address] [place] [address] [employer] [place] [address] Scheduled Procedures Name Priority Associated Diagnoses Date/Ti me COLONOSCOPY FLEXIBLE PROXIMAL DIAGNOSTIC Recall History of colon polyps Health Maintenance Due Date Last Done Comments Zoster Vaccines (1 of 2) 1996 Adult Wellness Visit 2012 Pneumococcal Vaccine: 50+ Years (3 of 3 - PCV20 or PCV21) 05/06/2023 05/06/2018, 01/29/2008 COVID-19 Vaccine ( season) 2024 09/05/2022, 12/26/2021, 12/26/2021, Additional history exists Depression Monitoring 07/29/2024 07/29/2023 DXA Scan 12/08/2024 12/08/2022, 11/17, 10/03/2014, Additional history exists B-12 01/26/2025 01/27/2024, 03/0 12/2022, 02/01/2021, Additional history exists Diabetic Eye Exam 02/09/2025 02/10/2024, , 09/29/2023, Additional history exists HbA1c 05/29/2025 11/29/2024, 03/01/2024, 07/29/2023, Additional history exists Diabetic Foot Exam 08/01/2025 08/01/2024, 0 07/29/2023, 07/22/2022, Additional history exists Albumin/Creatinine Ratio 10/01/2025 024, 01/15/2023, 11/28/2022, Additional history exists Colonoscopy 11/29/2025 11/29/2020, 11/16, 11/07/2014, Additional history exists GFR 02/04/2026 02/04/2025, 01/15, 02/01/2025, Additional history exists TSH 02/07/2026 02/07/2025, 11/16, 01/27/2024, Additional history exists DTap/Tdap Vaccines (3 - Td or Tdap) 07/22/2032 07/22/2022, 03/18/2009, 03/29/1999 RETIRED - COLONOSCOPY-EVERY 5 YRS AGES 18-100 Discontinued 11/29/2020, 11/29/2020, 11/07/2014, Additional history exists Influenza Vaccine (FLU shot) Completed 08/01/2024, 07/29/2023, 07/22/2022, Additional history exists VITAMIN D LEVEL ONCE IN A LIFETIME-USE SMARTSET# [id number] Completed 02/01/2025, 01/15/2023, 07/18/2021, Additional history exists [...] this encounter Medical Devices Implanted Type Area Sales Promotion Director Device Identifier Shelf Expiration Date Model / Serial / Lot Sofport Intraocular Posterior Chamber Lens Implanted:Qty: 1 on 02/02/2017 by Gabriel Acosta MD at OR [facility] Right: Eye [employer] 05/15/2021 [id number] / [id number] / [id number] Lens Intraoc 29.0 - [id number] - [id number] Implanted:Qty: 1 on 02/09/2017 by Gabriel Acosta MD at OR [facility] Left: Eye [employer] LOMB 12/16/2018 [id number] / [id number] / [id number] Clip Quick 2.8mm 230cm - [id number] Implanted:Qty: 2 on 11/29/2020 by Sharon Benitez MD at ENDOSCOPY [facility] [employer] 11/15/2022 [id number]-202UR.[id number] / / documented as of this encounter Advance Directives Documents on File Type Date Recorded Patient Relief Docking Master Expl anation Power of Rail Switchman 06/08/2020 POWER OF A TTORNEY Power of Rail Switchman 04/19/2018 POWER OF A TTORNEY DURABLE HEALTH POWER OF CARE ADMINISTRATIVE TECH * No Code (Latest Code Status on File) Date Activated Date Inactivated Comments 01/30/2025 8:36 PM 02/03/2025 3:31 PM This order r eflects the patients wishes and were consensually agreed upon. Question Answer Comments Discussion of Advance Direct esequiel occurred with: Power of Rail Switchman/Patient Relief Docking Master Does the patient have a Living Will? Yes, in monica rt and reviewed as current Does the patient have Health Care Power of Rail Switchman? Yes, in chart and reviewed as current [...] patients wishes and were consensually agreed upon. Care Teams House Calls Nurse Practitioner Relationship Specialty Start Date End Date Lydia February DONY [facility] [address] [facility] [place] [address] PCP - General Physician Microbiological Lab Technician 05/25/24 documented as of this encounter
--- OUTSIDE RECORDS SUMMARY | 2025-03-08 13:50 | External Medical Summary | Summary of Care ---
Author Name Unknown Organization [facility] Address [address] [place] [address] Phone [phone] Care Team Providers Care Garage Door Technician Name Role Phone Janice Freeman PA-C Primary Care Provider Reason for Visit * Reason Onset Date Comments Home Health 02/13/2025 Encounter Details Date Type Department Care Team (Late st Contact Info) Description 02/13/2025 Telephone Family Practice [facility] [place] [address] [place] [address] Janice Freeman PA-C [address] [facility] [place] [address] Home Health Allergies Active Allergy Reactions Criticality Noted Date Comments Sertraline Hcl 04/26/2012 Leg pain Simvastatin Muscle pain 01/10/2019 Sulfa Antibiotics 08/25/2001 rash documented as of this encounter (statuses as of 02/13/2025) Medications Multiple Vitamins-Minerals (PRESERVISION AREDS 2) Capsule [...] hemoglobin A1c goal of less than 7.0% ([facility]) USE STRIP TO CHECK GLUCOSE UP TO TWICE DAILY DIRECTED 200 Strip 3 06/14/20 24 Active metFORMIN HCl ER 500 MG Oral Tablet Extended Release 24 Hour (Glucophage XR)Indications:Typ e 2 diabetes mellitus with hemoglobin A1c goal of less than 7.0% ([facility]) TAKE 2 TABLETS BY MOUTH TWICE [...] Capsule before bedtime. 10 Capsule 02/04/20 Active Hospital, Clinic, or Other Facility Administered [...] as of this encounter (statuses as of 02/13/2025) Active Problems Problem Noted Date Diagnosed Date [...] as of this encounter (statuses as of 02/13/2025) Resolved Problems Problem Noted Date Diagnosed Date [...] as of this encounter (statuses as of 02/13/2025) Immunizations Name Administration Dates Next Due COVID-19 mRNA, LNP-s, No Pre serve, 2-Dose Series ([employer]) 12/26/2021,2021,05/24/2021 Covid-19, Mrna, Lnp-s, Pf, B ivalent, 30 Mcg, IM, 12 yrs and above ([employer]) 09/05/2022 Pneumococcal Conjugate Vacc, 13 Valent (Prevnar) [...] encounter Miscellaneous Notes * Telephone Encounter - Deanne Hogue LPN - 02/13/2025 2:55 PM EDT HH Admission/Start of Care Admission/Start of Care: Xi , Calling from: [facility] Referral ordered by: Liliya Rosario/ilia on 02/15 Referral received for: [facility], PT, and OT Planned start of care date:Yes, Date 02/17 Last Office Visit: 11/29/2024 Has patient been scheduled or seen in the office for a follow up visit: Yes- on02/27 Advised that orders will be signed by Janice Freeman PA-C and to fax to the office for signature. [facility] * Telephone Encounter - Bryce Chacko OSA - 02/13/2025 2:52 PM EDT Reason for patient's call: Leslie is calling back checking on response to previous message. Asking totalk with nurse. Caller was transferred to Deanne at the nurse line. * Telephone Encounter - Magi Dickson OSA - 02/13/2025 1:07 PM EDT Leslie from [facility] calling to inquire if Dr. Clifford would be willing to sign home health care orders for Pt; PCP is Janice Freeman and they will not accept signatures from ford [place]. Please call to rebecca [phone]. documented in this encounter Plan of Treatment Upcoming Encounters Date Type Department Care Team (Late st Contact Info) Description 02/14/2025 9:45 AM EDT [facility] [address] [place] [address] 02/15/2025 1:30 PM EDT Office Visit Orthopaedics [facility] [address] [place] [phone] Jeffrey Zuniga PA-C [address] [place] [phone] 02/27/2025 11:00 AM EDT Office Visit Family Practice [facility] [address] [facility] [place] [address] Janice Freeman PA-C [address] [facility] [place] [address] 03/08/2025 9:00 AM EDT Imaging Radiology [facility] [address] [address] 03/08/2025 11:00 AM EDT Office Visit Rheumatology [facility] [address] [address] Gio Zaragoza CRNP [address] [place] [address] [place] [address] Scheduled Procedures Name Priority Associated Diagnoses Date/Ti [...] 02/11/2026 02/11/2025, 01/15, 02/02/2025, Additional history exists DTap/Tdap Vaccines (3 - Td or Tdap) 07/22/2032 07/22/2022, 03/18/2009, 03/29/1999 RETIRED - COLONOSCOPY-EVERY 5 YRS AGES 18-100 Discontinued 11/29/2020, 11/29/2020, 11/07/2014, Additional history exists Influenza Vaccine (FLU shot) Completed 08/01/2024, 07/29/2023, 07/22/2022, Additional history exists VITAMIN D LEVEL ONCE IN A LIFETIME-USE SMARTSET# [id number] Completed 02/01/2025, 01/15/2023, 07/18/2021, Additional history exists [...] this encounter Medical Devices Implanted Type Area Paper Maker Device Identifier Shelf Expiration Date Model / Serial / Lot Sofport Intraocular Posterior Chamber Lens Implanted:Qty: 1 on 02/02/2017 by Gabriel Acosta MD at OR [facility] Right: Eye [employer] LOM[employer] 05/15/2021 [id number] / [id number] / [id number] Lens Intraoc 29.0 - [id number] - [id number] Implanted:Qty: 1 on 02/09/2017 by Gabriel Acosta MD at OR [facility] Left: Eye BAUSCH [employer] LOMB 12/16/2018 [id number] / [id number] / [id number] Clip Quick 2.8mm 230cm - [id number] Implanted:Qty: 2 on 11/29/2020 by Sharon Benitez MD at ENDOSCOPY [facility] [employer] 11/15/2022 [id number]-[id number] / / documented as of this encounter Advance Directives Documents on File Type Date Recorded Patient Electronics System Mechanic Expl anation Power of Side Puller 06/08/2020 POWER OF A TTORNEY Power of Side Puller 04/19/2018 POWER OF A TTORNEY DURABLE HEALTH POWER OF CARRY ALL DRIVER * No Code (Latest Code Status on File) Date Activated Date Inactivated Comments 01/30/2025 8:36 PM 02/03/2025 3:31 PM This order r eflects the patients wishes and were consensually agreed upon. Question Answer Comments Discussion of Advance Direct esequiel occurred with: Power of Side Puller/Patient Electronics System Mechanic Does the patient have a Living Will? Yes, in monica rt and reviewed as current Does the patient have Health Care Power of Side Puller? Yes, in chart and reviewed as current [...] and were consensually agreed upon. Care Teams Garage Door Technician Relationship Specialty Start Date End Date Janice Freeman PA-C [address] [place] [address] PCP - General Physician Spectroscopist 05/25/24 documented as of this encounter
--- OUTSIDE RECORDS SUMMARY | 2025-03-08 13:50 | External Medical Summary ---
Author Name Unknown Address Unknown Organization K0G:[facility] [place] [facility] [place] [address] Laboratory Report Ordering Provider Test Date Status SKYLER THOMPSON 02/11/2025 06:16:28 Final Observation Date Value Abnormality Reference (Units ) Status BUN 02/11/2025 06:16:28 27 Above high normal 6-20 (mg/dL) Final Creatinine 02/11/2025 06:16:28 0.9 0.5-1.0 (mg/dL) Final Glomerular filtration rate/1.73 sq M.predicted [Volume Rate/Area] in Serum, Plasma or Blood by Creatinine-based formula (CKD-EPI) 02/11/2025 06:16:28 67 >=60 (mL/min) Final eGFR is calculated based on the CKD-EPI 2020 equation. Sodium 02/11/2025 06:16:28 143 135-146 (m mol/L) Final Potassium 02/11/2025 06:16:28 4.5 3.5-5.1 (m mol/L) Final Cl 02/11/2025 06:16:28 104 98-107 (mm ol/L) Final CO2 02/11/2025 06:16:28 27 22-32 (mmo l/L) Final Anion gap 02/11/2025 06:16:28 12 7-15 (mmol /L) Final Glucose 02/11/2025 06:16:28 94 70-120 (mg /dL) Final Calcium 02/11/2025 06:16:28 8.9 8.4-10.2 ( mg/dL) Final Performing Location [facility] [facility] - [address] [place] [address]
--- OUTSIDE RECORDS SUMMARY | 2025-03-08 13:50 | External Medical Summary | Summary of Care ---
Author Name Unknown Organization [facility] Address [address] [place] [address] Phone [phone] Care Team Providers Care Wood Patternmaker Name Role Phone Lydia Janice Danielle DONY Primary Care Provider [phone] Reason for Visit * Reason Onset Date Comments Appointment 02/14/2025 Encounter Details Date Type Department Care Team (Late st Contact Info) Description 02/14/2025 Telephone Orthopaedics [facility] [address] [place] [address] Jeffrey Zuniga PA-C [address] [place] [address] Appointment Allergies Active Allergy Reactions Criticality Noted Date Comments Sertraline Hcl 04/26/2012 Leg pain Simvastatin Muscle pain 01/10/2019 Sulfa Antibiotics 08/25/2001 rash documented as of this encounter (statuses as of 02/15/2025) Medications Multiple Vitamins-Minerals (PRESERVISION AREDS 2) Capsule [...] hemoglobin A1c goal of less than 7.0% ([facility]) USE STRIP TO CHECK GLUCOSE UP TO TWICE DAILY DIRECTED 200 Strip 3 06/14/20 24 Active metFORMIN HCl ER 500 MG Oral Tablet Extended Release 24 Hour (Glucophage XR)Indications:Typ e 2 diabetes mellitus with hemoglobin A1c goal of less than 7.0% ([facility]) TAKE 2 TABLETS BY MOUTH [...] mg for pain, severe). 30 mL 02/04/20 Active Docusate Sodium 100 MG Oral Capsule [...] as of this encounter (statuses as of 02/15/2025) Active Problems Problem Noted Date Diagnosed Date [...] as of this encounter (statuses as of 02/15/2025) Resolved Problems Problem Noted Date Diagnosed Date [...] as of this encounter (statuses as of 02/15/2025) Immunizations Name Administration Dates Next Due COVID-19 mRNA, LNP-s, No Pre serve, 2-Dose Series ([employer]) 12/26/2021,2021,05/24/2021 Covid-19, Mrna, Lnp-s, Pf, B ivalent, [...] Encounter - Heather De Santiago OSA - 02/14/2025 4:46 PM EDT Had to re-schedule pt due to Jeffrey unexpectedly being on Urgent Care. Voicemail box was full, sent pt MyG. documented in this encounter Plan of Treatment Upcoming Encounters Date Type Department Care Team (Late st Contact Info) Description 02/17/2025 1:30 PM EDT Office Visit Orthopaedics [facility] [address] [phone] Jeffrey Zuniga PA-C [address] [phone] 02/27/2025 11:00 AM EDT Office Visit Family Practice [facility] [place] [address] [facility] [place] [address] Janice Freeman PA-C [address] [facility] [place] [address] 03/08/2025 9:00 AM EDT Imaging Radiology [facility] [address] [address] 03/08/2025 11:00 AM EDT Office Visit Rheumatology [facility] [address] [phone] Gio Zaragoza CRNP [address] [place] [address] [place] [address] Scheduled Procedures Name Priority Associated Diagnoses Date/Ti [...] D LEVEL ONCE IN A LIFETIME-USE SMARTSET# [id number] Completed 02/01/2025, 01/15/2023, 07/18/2021, Additional history exists [...] this encounter Medical Devices Implanted Type Area Home Mortgage Disclosure Act Specialist Device Identifier Shelf Expiration Date Model / Serial / Lot Sofport Intraocular Posterior Chamber Lens Implanted:Qty: 1 on 02/02/2017 by Gabriel Acosta MD at OR [facility] Right: Eye [employer] 05/15/2021 [id number] / [id number] / [id number] Lens Intraoc 29.0 - [id number] - [id number] Implanted:Qty: 1 on 02/09/2017 by Gabriel Acosta MD at OR [facility] Left: Eye [employer]OM[employer] 12/16/2018 [id number] / [id number] / [id number] Clip Quick 2.8mm 230cm - [id number] Implanted:Qty: 2 on 11/29/2020 by Sharon Benitez MD at ENDOSCOPY [facility] [employer] 11/15/2022 [id number] / / documented as of this encounter Advance Directives Documents on File Type Date Recorded Patient Dehydrator Expl anation Power of Procedure Manager 06/08/2020 POWER OF A TTORNEY Power of Procedure Manager 04/19/2018 POWER OF A TTORNEY DURABLE HEALTH POWER OF TRAIN ELECTRONIC TECHNICIAN * No Code (Latest Code Status on File) Date Activated Date Inactivated Comments 01/30/2025 8:36 PM 02/03/2025 3:31 PM This order r eflects the patients wishes and were consensually agreed upon. Question Answer Comments Discussion of Advance Direct esequiel occurred with: Power of Procedure Manager/Patient Dehydrator Does the patient have a Living Will? Yes, in monica rt and reviewed as current Does the patient have Health Care Power of Procedure Manager? Yes, in chart and reviewed as current [...] and were consensually agreed upon. Care Teams Wood Patternmaker Relationship Specialty Start Date End Date Janice Freeman PA-C [address] [place] [address] PCP - General Physician School Crossing Guard Supervisor 05/25/24 documented as of this encounter
--- OUTSIDE RECORDS SUMMARY | 2025-03-08 13:50 | External Medical Summary ---
Author Name Unknown Address Unknown Organization K01:[facility] [address] [place] [address] Laboratory Report Ordering Provider Test Date Status ALICIACINDYCRYSJUANCARLOS 02/07/2025 05:38:28 Final Observation Date Value Abnormality Reference (Units ) Status TSH 02/07/2025 05:38:28 7.67 Above high normal 0. 27-4.20 (uIU/mL) Final Performing Location [facility] [place] [address] [place] [address]
--- OUTSIDE RECORDS SUMMARY | 2025-03-08 13:50 | External Medical Summary ---
Author Name Unknown Address Unknown Organization K01[facility] [place] [address] [place] [address] Laboratory Report Ordering Provider Test Date Status SKYLER THOMPSON 02/08/2025 04:56:50 Final Observation Date Value Abnormality Reference (Units) Status Bacteria identified in Specimen by Culture 02/08/2025 04:56:50 No significant growth Final Test: Culture, Urine, Quanti tative
Specimen Type: Urine
Specimen Date: 02/08/2025 045
Result Date: 02/09/2025 0949
Result Status: Final result
Resulting Lab: [facility] [place]
[address]
[place] [address]

CULTURE

No significant growth

null Performing Location [facility] [place] [address] [place] [address]
--- OUTSIDE RECORDS SUMMARY | 2025-03-08 13:50 | External Medical Summary | Summary of Care ---
Author Name Unknown Organization [facility] Address [address] [place] [address] Phone [phone] Care Team Providers Care Hotel Night Auditor Name Role Phone Janice Freeman DONY Primary Care Provider [phone] Reason for Visit * Reason Comments NEW PATIENT New pt presents for L wrist fx Encounter Details Date Type Department Care Team (Late st Contact Info) Description 02/17/2025 1:30 PM EDT Office Visit Orthopaedics [facility] [address] [place] [phone] Jeffrey Zuniga PA-C [address] [place] [phone] Displaced fracture of right radial styloid process, initial encounter for closed fracture* Allergies Active Allergy Reactions Criticality Noted Date Comments Sertraline Hcl 04/26/2012 Leg pain Simvastatin Muscle pain 01/10/2019 Sulfa Antibiotics 08/25/2001 rash documented as of this encounter (statuses as of 02/17/2025) Medications Multiple Vitamins-Minerals (PRESERVISION AREDS 2) Capsule [...] hemoglobin A1c goal of less than 7.0% ([facility]) USE STRIP TO CHECK GLUCOSE UP TO TWICE DAILY DIRECTED 200 Strip 3 06/14/20 24 Active metFORMIN HCl ER 500 MG Oral Tablet Extended Release 24 Hour (Glucophage XR)Indications:Typ e 2 diabetes mellitus with hemoglobin A1c goal of less than 7.0% ([facility]) TAKE 2 TABLETS BY MOUTH [...] Capsule before bedtime. 10 Capsule 02/04/20 Active Clopidogrel Bisulfate 75 MG Oral Tablet (Plavix) Take 1 Tablet by mouth in the morning. 30 Tablet 5 02/17/20 Active Hospital, Clinic, or Other Facility Administered [...] as of this encounter (statuses as of 02/17/2025) Active Problems Problem Noted Date Diagnosed Date [...] as of this encounter (statuses as of 02/17/2025) Resolved Problems Problem Noted Date Diagnosed Date [...] as of this encounter (statuses as of 02/17/2025) Immunizations Name Administration Dates Next Due COVID-19 mRNA, LNP-s, No Pre serve, 2-Dose Series (Nintex) 12/26/2021,2021,05/24/2021 Covid-19, Mrna, Lnp-s, Pf, B ivalent, 30 Mcg, IM, 12 yrs and above ([employer]intex) 09/05/2022 Pneumococcal Conjugate Vacc, 13 Valent (Prevnar) [...] documented in this encounter Progress Notes * Jeffrey Zuniga PA-C - 02/17/2025 1:29 PM EDT Subjective Allie Diaz is a 79 year old female. Chief Complaint Patient presents with NEW PATIENT New pt presents for L wrist fx HPI: 2 and half week follow-up from [facility] regarding a left wrist injury. Diagnosed with a radial styloid fracture and was placed in a short-arm splint. States her symptoms are tolerable. Will need re-x-ray today through plaster. If stable can place in a short-arm cast. Denies numbness or tingling. PMH: Patient Active Problem List Diagnosis Hypothyroidism DIVERTICULOSIS OF COLON History of colonic polyps Restless leg syndrome Type 2 diabetes mellitus with hemoglobin A1c goal of less than 7.0% ([facility]) Dyslipidemia, goal LDL below 100 Type 2 diabetes mellitus with other diabetic neurological complication ([facility]) History of uterine fibroid History of CVA (cerebrovascular accident) Mild vascular neurocognitive disorder Major depressive disorder, recurrent severe without psychotic features ([facility]) Thoracic aortic ectasia ([facility]) Hemiplegia and hemiparesis following cerebral infarction affecting right dominant side ([facility]) Essential (primary) hypertension Age-related osteoporosis without current pathological fracture Generalized anxiety disorder History of cataract extraction Expressive aphasia Dizziness Facial laceration Fall Uterine leiomyoma Abnormal gait Back pain Benign paroxysmal positional vertigo Closed compression fracture of thoracic vertebra ([facility]) Diverticulosis Macular degeneration Multiple injuries due to trauma Laceration of brow without complication SAH (subarachnoid hemorrhage) ([facility]) SDH (subdural hematoma) ([facility]) Hematoma of right thigh Closed fracture of distal end of right radius Contusion of right knee Obesity Impaired mobility and ADLs Gait abnormality Current Outpatient Medications Medication Sig Dispense Refill [...] 1 Capsule before bedtime. 10 Capsule 0 Clopidogrel Bisulfate 75 MG Oral Tablet (Plavix) Take 1 Tablet by mouth in the morning. 30 Tablet 5 Current Facility-Administered Medications Medication Dose Route Frequency Provider Last Rate Last Admin Aflibercept (Eylea) intraviteal prefilled syringe 2 mg 2 mg Intravitreal PRN 2 mg at 12/16/24 1132 ROPivacaine (Naropin) inj 1.5 mg 1.5 mg Injection PRN 1.5 mg at 12/16/24 1132 Past Medical History: Diagnosis Date Benign neoplasm [...] History of uterine fibroid 07/06/2018 Hypothyroidism abt 2000 from goiter Impaired fasting glucose 04/15/2005 134 [...] 12/18/2005 hyperplastic 3 mm polyp, Dr Tinoco, [facility], repeat 2008 DEXA SCAN/BONE MINERAL AXIAL 2001 ok repeat in 2006 DIABETIC EYE EXAM [...] Right 04/07/2018-04/07/2019 Eylea OD consent signed, Dr. Falcon MISRIVERANEOUS ORDER ([facility] ONLY) ACT 112 SIGNED, Dr. Falcon (12-30-2018) MISCELLANEOUS ORDER ([facility] ONLY) Right 04/20/2019-04/20/2020 Eylea OD consent signed, MISCELLANEOUS ORDER ([facility] ONLY) Right 08/10/2019-08/10/2020 LUCENTIS 0.5MG CONSENT OD SIGNED; DR FALCON MISCELLANEOUS ORDER ([facility] ONLY) Right 05/09/2020-05/09/2021 Eylea OD consent signed, OTHER Eylea OD Consent signed /Cristóbal 06/13/2021-06/13/22 OTHER (INFORMATION) EYLEA OU CONSENT SIGNED Dr. Falcon/Cristóbal (exp 07-25-23) OTHER (INFORMATION) CONSENT OU EYLEA exp 08/04/24; Dr Falcon OTHER (INFORMATION) Eylea OU consent Dr. Falcon/Cristóbal expires 08/16/2025 REMOVAL OF THYROID LESION 1999 REMOVE CATARACT, INSERT LENS PROSTH Right 02/02/2017 right EXTRACAPSULAR CATARACT REMOVAL WITH INTRAOCULAR LENS performed by Gabriel Acosta MD at OR [facility] REMOVE CATARACT, INSERT LENS PROSTH Left 02/09/2017 left EXTRACAPSULAR CATARACT REMOVAL WITH INTRAOCULAR LENS performed by Gabriel Acosta MD at OR [facility] Review of patient's allergies indicates: Allergen Reactions Sertraline Hcl Leg pain Simvastatin Muscle pain Sulfa Antibiotics rash Family History Problem Relation Name Age of Onset Eye Problems Father AMD Eye Problems Sister AMD Cancer Father lung Diabetes Father niddm Diabetes Mother iddm Diabetes Sister iddm Cancer Sister uterine ca Heart Disorder Sister Heart Disorder Mother chf Gastro-intestinal disorder Sister diverticulitis Heart Disorder Son fatal [place] at age 49 No Past Hx Son Glaucoma Other Denies family hx Breast Cancer Grandmother (Maternal) Family Status Relation Status Mo at age 77 Fa at age 71 Sis Alive diabetes, Sis Alive Lori accidental Son Alive Son at age 49 [place] Sis (Not Specified) Sis (Not Specified) Sis (Not Specified) Sis (Not Specified) Son (Not Specified) Son (Not Specified) Other (Not Specified) MGMA (Not Specified) Social History Socioeconomic History Marital status: Spouse [...] Self-Exams Yes Social History Narrative born in [facility] in [place] since 1963 Social Needs Financial Resource Strain: [...] Stability Do you currently live in a penitentiary or have no steady place to sleep [...] - for ages0-17 years): Not on file Objective There were no vitals taken for this visit. complete review of systems negative General: alert and oriented x3 female, no acute distress, appears currently stated age, pleasant, well nourished Skin: Right upper extremity including age-appropriate ecchymosis throughout the hand, the right hand does not reveal any erythema, ecchymosis, abrasion, laceration, skin breakdown otherwise Neurovascular: Right upper extremity reveals distal pulses +2, capillary refill is under 2 seconds, good sensation light touch, +5 general freight agent strength, axillary median ulnar radial nerve assess fully intact Musculoskeletal: Exam of the right wrist limited in order to preserve fracture alignment. There is mild tenderness palpating the radial styloid. No palpable deformity. Snuffbox nontender. Elbow hand fingers and thumb atraumatic and reveal active motion X-rays of the patient's right wrist reveals a nondisplaced radial styloid fracture with intra-articular involvement. Advanced degenerative changes most notably throughout the 1st CMC joint with subluxation indicative of end-stage basal joint arthritis. Osteopenic changes identified as well. No changes in alignment of the radial styloid fracture. Unable to identify any type of obvious cystic change or masses in the bone. Official report to follow accordingly Personal interpretation and documentation regarding today's plain film radiographs performed by myself. ASSESSMENT/PLAN: Displaced fracture of right radial styloid process, initial encounter for closed fracture (Primary) Other orders - XR WRIST 3 OR MORE VIEWS Follow Up: Return in about 3 weeks (around 03/10/2025) for Clinic Visit. | For: Clinic Visit Impression: Two and half weeks status post nondisplaced radial styloid fracture, stable Plan: Today 's findings were discussed with the patient. They were educated regarding their diagnosis. Multiple treatment options discussed and agreed upon, including placing the patient in a short-arm cast that has well-padded and molded. Cast care instructions provided. Keep cast clean dry and intact. Follow up in 3 weeks for clinical reassessment. The cast will be removed at that time, repeat x-rays three views of the right cast out of plaster and likely transition 1-2 additional weeks of bracing. All parties aware, in agreement and willing to proceed accordingly. The patient has no other questions or concerns. Pleased with today 's care. Call sooner if needed. This chart was completed in part utilizing [employer] Speech Voice Recognition Software. Grammatical errors, random word insertions, prounoun errors, and incomplete sentences are an occasional consequence of this system due to software limitations, ambient noise, and hardware issues. Any formal questions or concerns about the content, text, or information contained within the body of this dictation should be directly addressed to the provider for clarification. Jeffrey Zuniga PA-C documented in this encounter Nursing Notes * Lisseth Gusman CMA - 02/17/2025 12:55 PM EDT New pt presents for R wrist fx Pt in splint DOI: 01/30/25 - Lisseth Lin CMA documented in this encounter Plan of Treatment Upcoming Encounters Date Type Department Care Team (Late st Contact Info) Description 02/27/2025 11:00 AM EDT Office Visit [address] [place] [address] Janice Freeman PA-C [address] [place] [address] 03/08/2025 9:00 AM EDT Imaging Radiology [facility] [address] [place] [phone] 03/08/2025 11:00 AM EDT Office Visit Rheumatology [facility] [address] [place] [phone] Gio Zaragoza CRNP [address] [place] [address] [place] [address] 03/20/2025 10:30 AM EDT Office Visit Orthopaedics [facility] [address] [place] [phone] Jeffrey Zuniga PA-C [address] [place] [phone] Pending Results Name Type Priority Associated Diagnoses Date /Time XR WRIST 3 OR MORE VIEWS Medical Imaging Routine 02/17/2025 1:13 PM EDT Scheduled Procedures Name Priority Associated Diagnoses Date/Ti [...] D LEVEL ONCE IN A LIFETIME-USE SMARTSET# 90309 Completed 02/01/2025, 01/15/2023, 07/18/2021, Additional history exists [...] this encounter Medical Devices Implanted Type Area Senior Associate Device Identifier Shelf Expiration Date Model / Serial / Lot Sofport Intraocular Posterior Chamber Lens Implanted:Qty: 1 on 02/02/2017 by Gabriel Acosta MD at OR [facility] Right: Eye [employer] 05/15/2021 [id number] / [id number] / [id number] Lens Intraoc 29.0 - [id number] - [id number] Implanted:Qty: 1 on 02/09/2017 by Gabriel Acosta MD at OR [facility] Left: Eye [employer] 12/16/2018 [id number] / [id number] / [id number] Clip Quick 2.8mm 230cm - [id number] Implanted:Qty: 2 on 11/29/2020 by Sharon Benitez MD at [facility] [employer] 11/15/2022 [id number] / / documented as of this encounter Visit Diagnoses Diagnosis Displaced fracture of right radial styloid process, initial encounter for closed fracture- Primary documented in this encounter Advance Directives Documents on File Type Date Recorded Patient Package Checker Expl anation Power of Legend Maker 06/08/2020 POWER OF A TTORNEY Power of Legend Maker 04/19/2018 POWER OF A TTORNEY DURABLE HEALTH POWER OF RETURNING OFFICER * No Code (Latest Code Status on File) Date Activated Date Inactivated Comments 01/30/2025 8:36 PM 02/03/2025 3:31 PM This order r eflects the patients wishes and were consensually agreed upon. Question Answer Comments Discussion of Advance Direct esequiel occurred with: Power of Legend Maker/Patient Package Checker Does the patient have a Living Will? Yes, in monica rt and reviewed as current Does the patient have Health Care Power of Legend Maker? Yes, in chart and reviewed as current [...] Care Agent (per Health Care Power of Legend Maker document) Care Teams Hotel Night Auditor Relationship Specialty Start Date End Date Janice Freeman PA-C [address] [place] [address] [place] [address] PCP - General Physician [employer]stream Biomanufacturing Technician 05/25/24 documented as of this encounter"
--- OUTSIDE RECORDS SUMMARY | 2025-03-08 13:50 | External Medical Summary ---
Author Name Unknown Address Unknown Organization [id number]:[facility] [place] [address] - [address] [place] [address] Laboratory Report Ordering Provider Test Date Status SKYLER THOMPSON 02/04/2025 06:00:00 Final Observation Date Value Abnormality Reference (Units ) Status BUN 02/04/2025 06:00:00 24 Above high normal 6-20 (mg/dL) Final Creatinine 02/04/2025 06:00:00 0.9 0.5-1.0 (mg/dL) Final Glomerular filtration rate/1.73 sq M.predicted [Volume Rate/Area] in Serum, Plasma or Blood by Creatinine-based formula (CKD-EPI) 02/04/2025 06:00:00 66 >=60 (mL/min) Final eGFR is calculated based on the CKD-EPI 2020 equation. Sodium 02/04/2025 06:00:00 142 135-146 (m mol/L) Final Potassium 02/04/2025 06:00:00 4.3 3.5-5.1 (m mol/L) Final Cl 02/04/2025 06:00:00 104 98-107 (mm ol/L) Final CO2 02/04/2025 06:00:00 27 22-32 (mmo l/L) Final Anion gap 02/04/2025 06:00:00 11 7-15 (mmol /L) Final Glucose 02/04/2025 06:00:00 92 70-120 (mg /dL) Final Calcium 02/04/2025 06:00:00 8.6 8.4-10.2 ( mg/dL) Final Performing Location [facility]ORY [facility] [facility] [place] [address]
--- OUTSIDE RECORDS SUMMARY | 2025-03-08 13:50 | External Medical Summary ---
Author Name Unknown Address Unknown Organization [id number]:[facility] [place] [address] Laboratory Report Ordering Provider Test Date Status SKYLER THOMPSON 02/08/2025 04:56:50 Final Observation Date Value Abnormality Reference (Units ) Status Color of Urine by Auto 02/08/2025 04:56:50 Yellow Light Yellow, Yellow, Dark Yellow Final Clarity, Urine 02/08/2025 04:56:50 Clear Clear Final Glucose [Mass/volume] in Urine by Automated test strip 02/08/2025 04:56:50 Negative Negative (mg/dL) Final Bilirubin.total [Presence] in Urine by Automated test strip 02/08/2025 04:56:50 Negative Negative Final Ketones [Mass/volume] in Urine by Automated test strip 02/08/2025 04:56:50 Trace Abnormal Negative (mg/dL) Final Specific gravity, Urine 02/08/2025 04:56:50 >=1.030 1.003-1.030 Final Hemoglobin [Presence] in Urine by Automated test strip 02/08/2025 04:56:50 Negative Negative Final pH, Urine 02/08/2025 04:56:50 5.5 5.0-7.5 (Units) Final Protein [Mass/volume] in Urine by Automated test strip 02/08/2025 04:56:50 Negative Negative (mg/dL) Final Urobilinogen [Mass/volume] in Urine by Automated test strip 02/08/2025 04:56:50 1.0 0.2, 1.0 (mg/dL) Final Nitrite [Presence] in Urine by Automated test strip 02/08/2025 04:56:50 Negative Negative Final Leukocyte esterase [Presence] in Urine by Automated test strip 02/08/2025 04:56:50 Trace Abnormal Negative Final RBC, Urine 02/08/2025 04:56:50 0-2 0-2 (/HPF) Final WBC, Urine 02/08/2025 04:56:50 3-5 Abnormal 0-2 (/HPF) Final Bacteria [#/area] in Urine sediment by Microscopy high power field 02/08/2025 04:56:50 0-25 0-25 (/HPF) Final Performing Location [facility] [place] [address]
--- OUTSIDE RECORDS SUMMARY | 2025-03-08 13:51 | External Medical Summary ---
Author Name Unknown Address Unknown Organization K01:[facility] [place] [address] [place] [address] Laboratory Report Ordering Provider Test Date Status DOT CORTES 02/01/2025 06:34:00 Final Observation Date Value Abnormality Reference (Units ) Status BUN 02/01/2025 06:34:00 20 6-20 (mg/dL) Final Creatinine 02/01/2025 06:34:00 0.9 0.5-1.0 (mg/dL) Final Glomerular filtration rate/1.73 sq M.predicted [Volume Rate/Area] in Serum, Plasma or Blood by Creatinine-based formula (CKD-EPI) 02/01/2025 06:34:00 65 >=60 (mL/min) Final eGFR is calculated based on the CKD-EPI 2020 equation. Sodium 02/01/2025 06:34:00 142 135-146 (m mol/L) Final Potassium 02/01/2025 06:34:00 3.8 3.5-5.1 (m mol/L) Final Cl 02/01/2025 06:34:00 107 98-107 (mm ol/L) Final CO2 02/01/2025 06:34:00 24 22-32 (mmo l/L) Final Anion gap 02/01/2025 06:34:00 11 7-15 (mmol /L) Final Glucose 02/01/2025 06:34:00 102 70-120 (mg /dL) Final Calcium 02/01/2025 06:34:00 8.2 Below low normal 8.4 -10.2 (mg/dL) Final Performing Location [facility] [place] - [address] [place] [place] [address]
--- OUTSIDE RECORDS SUMMARY | 2025-03-08 13:51 | External Medical Summary ---
Author Name Unknown Address Unknown Organization K01:[facility] [address] [place] [address] Laboratory Report Ordering Provider Test Date Status DOT CORTES 02/01/2025 06:34:00 Final Observation Date Value Abnormality Reference (Units ) Status Phosphate 02/01/2025 06:34:00 3.6 2.5-4.8 (m g/dL) Final Performing Location [facility] - [address] [place] [address]
--- OUTSIDE RECORDS SUMMARY | 2025-03-08 13:51 | External Medical Summary ---
Author Name Unknown Address Unknown Organization K01:[facility] [place] [address] [place] [address] Laboratory Report Ordering Provider Test Date Status DOT CORTES 02/02/2025 06:22:00 Final Observation Date Value Abnormality Reference (Units ) Status BUN 02/02/2025 06:22:00 23 Above high normal 6-20 (mg/dL) Final Creatinine 02/02/2025 06:22:00 0.9 0.5-1.0 (mg/dL) Final Glomerular filtration rate/1.73 sq M.predicted [Volume Rate/Area] in Serum, Plasma or Blood by Creatinine-based formula (CKD-EPI) 02/02/2025 06:22:00 64 >=60 (mL/min) Final eGFR is calculated based on the CKD-EPI 2020 equation. Sodium 02/02/2025 06:22:00 141 135-146 (m mol/L) Final Potassium 02/02/2025 06:22:00 4.2 3.5-5.1 (m mol/L) Final Cl 02/02/2025 06:22:00 108 Above high normal 98 -107 (mmol/L) Final CO2 02/02/2025 06:22:00 24 22-32 (mmo l/L) Final Anion gap 02/02/2025 06:22:00 9 7-15 (mmol /L) Final Glucose 02/02/2025 06:22:00 100 70-120 (mg /dL) Final Calcium 02/02/2025 06:22:00 8.1 Below low normal 8.4 -10.2 (mg/dL) Final Performing Location [facility] [place] - [address] [place] [address]
--- OUTSIDE RECORDS SUMMARY | 2025-03-08 13:51 | External Medical Summary | Summary of Care ---
Author Name Unknown Organization [facility] Address [address] [place] [address] Phone [phone] Care Team Providers Care Communications Administrator Name Role Phone Lydia February PAMichael Primary Care Provider [phone] Reason for Referral * Precert (Within 10 days (routine)) - Authorized Specialty Diagnoses / Procedures Referred By Contac t Referred To Contact Radiology Diagnoses SDH (subdural hematoma) (HCC) Procedures CT HEAD/BRAIN WO CONTRAST Kevin Nolen MD [address] [place] [address] Phone: tel: fax: Referral ID Status Reason Start Date Expiration Date V isits Requested Visits Authorized [id number] Authorized 02/14/2025 [id number] Reason for Visit * Reason Comments Trauma * Auth/Cert Specialty Diagnoses / Procedures Referred By Contcornell t Referred To Contact Diagnoses SAH (subarachnoid hemorrhage) (HCC) SAH s/p Amber Mireles MD [address] [place] [address] Phone: tel: fax: [facility]) Emergency Department ([facility]) [address] [place] [address] Phone: tel: fax: Referral ID Status Reason Start Date Expiration Date Visits Re quested Visits Authorized [id number] Encounter Details Date Type Department Care Team (Latest Contact Info) Description 01/30/2025 4:50 PM EDT - 02/03/2025 10:20 AM EDT Hospital Encounter TICU [facility], Trauma Intensive Care Unit, Vickie Kimbrough 5th Floor [address], [place] [id number] Matteo Riggs, DO [address] [place] [address] Amber Rebolledo MD [address] [place] [address] Various: EKG,CDIQDC Discharge Disposition: IP Rehab Allergies Active Allergy Reactions Criticality Noted Date Comments Sertraline Hcl 04/26/2012 Leg pain Simvastatin Muscle pain 01/10/2019 Sulfa Antibiotics 08/25/2001 rash documented as of this encounter (statuses as of 02/04/2025) Medications Multiple Vitamins-Minerals (PRESERVISION AREDS 2) Capsule Take 1 Cap by mouth 2 times a day. 60 Cap 12 017 Active Acetaminophen ER 650 MG Oral Tablet Extended Release Take 1 Tablet by mouth every 8 hours as needed for Pain, Moderate. Active Vitamin D3 25 MCG (1000 UT) Oral Tablet (Vitamin D3) Take 1 Tablet by mouth in the morning. 021 Active Sodium Chloride (Hypertonic) 5 % Ophthalmic Solution Instill 1 Drop into the right eye in the morning and 1 Drop before bedtime. Active Hydrocortisone 2.5 % External Lotion Apply to ear canal daily as needed for itching. 118 mL 3 023 Active Alendronate Sodium 70 MG Oral Tablet (Fosamax) Take 1 Tablet by mouth once a week. With a full glass of water. Remain upright for 30 minutes after taking. 12 Tablet 3 024 Active Atorvastatin Calcium 40 MG Oral Tablet (Lipitor)Indicati ons:Dyslipidemia, goal LDL below 100 Take 1 Tablet by mouth in the morning. 90 Tablet 2 024 Active OneTouch Ultra In Vitro Strip (Glucose Blood)Indications :Type 2 diabetes mellitus with hemoglobin A1c goal of less than 7.0% ([facility]) USE STRIP TO CHECK GLUCOSE UP TO TWICE DAILY DIRECTED 200 Strip 3 024 Active metFORMIN HCl ER 500 MG Oral Tablet Extended Release 24 Hour (Glucophage XR)Indications:Ty pe 2 diabetes mellitus with hemoglobin A1c goal of less than 7.0% (HCC) TAKE 2 TABLETS BY MOUTH TWICE DAILY WITH MORNING MEAL AND WITH EVENING MEAL 360 Tablet 1 024 Active FLUoxetine HCl 40 MG Oral Capsule (PROzac) Take 1 capsule by mouth in the morning 90 Capsule 1 024 Active Levothyroxine Sodium 125 MCG Oral Tablet (Levoxyl)Indicati ons:Acquired hypothyroidism TAKE 1 TABLET BY MOUTH IN THE MORNING AT LEAST 30 MINUTES PRIOR TO OTHER MEDICATIONS OR BREAKFAST 90 Tablet 025 Active buPROPion HCl ER (XL) 300 MG Oral Tablet Extended Release 24 Hour (Wellbutrin XL) Take 1 Tablet by mouth in the morning. 30 Tablet 11 025 Active Mirtazapine 15 MG Oral Tablet (Remeron) Take 1 Tablet by mouth at bedtime. 90 Tablet 3 025 Active LORazepam 1 MG Oral Tablet (Ativan)Indicatio ns:RACHEL (generalized anxiety disorder) TAKE 1/2 TABLET BY MOUTH EVERY 8 HOURS NEEDED FOR ANXIETY (1/2 TAB UP TO THREE TIMES DAILY). 23 Tablet 025 Active Gabapentin 300 MG Oral Capsule (Neurontin)Indica tions:New onset of headaches after age 50,Chronic ischemic left MCA stroke,Aphasia Take 1 Capsule by mouth at bedtime. 90 Capsule 3 025 Active oxyCODONE HCl 5 MG/5ML Oral Solution (Roxicodone) Take 2.5 mL by mouth every 4 hours as needed for Pain, Moderate (may take 5 mg for pain, severe). 30 mL 025 Active Heparin Sodium (Porcine) PF 5000 UNIT/0.5ML Injection Solution Inject 0.5 mL under the skin in the morning and 0.5 mL at noon and 0.5 mL before bedtime. Do all this for 7 days. Or until mobilization has improved at the discretion of the rehab facility provider. 10.5 mL 025 2024 Active levETIRAcetam 500 MG Oral Tablet (Keppra) Take 1 Tablet by mouth in the morning and 1 Tablet before bedtime. Do all this for 3 days. 6 Tablet 025 2024 Active Docusate Sodium 100 MG Oral Capsule (Colace) Take 1 Capsule by mouth in the morning and 1 Capsule before bedtime. 10 Capsule Active Sennosides 8.6 MG Oral Tablet (Senokot) Take 2 Tablets by mouth daily as needed for Constipation for up to 5 days. 10 Tablet 025 2024 Active Hydrocortisone 2 % External Lotion Apply topically to affected area daily as needed for Dry Skin. Apply to ear canal as needed for itching 29.6 mL 1 023 2024 Discontinued(M edication List Clean Up) Clopidogrel Bisulfate 75 MG Oral Tablet (pLAVix) Take 1 Tablet by mouth in the morning. 90 Tablet 3 024 2024 Discontinued LORazepam 1 MG Oral Tablet (Ativan)Indicatio ns:RACHEL (generalized anxiety disorder) TAKE 1/2 TABLET BY MOUTH EVERY 8 HOURS NEEDED FOR ANXIETY (1/2 TAB UP TO THREE TIMES DAILY). 23 Tablet 024 2024 Discontinued(R efill) Lisinopril 5 MG Oral Tablet (Prinivil) TAKE 1 TABLET BY MOUTH IN THE MORNING 90 Tablet 1 024 2024 Discontinued Hospital, Clinic, or Other Facility Administered Medication [...] as of this encounter (statuses as of 02/04/2025) Active Problems Problem Noted Date Diagnosed Date [...] as of this encounter (statuses as of 02/04/2025) Resolved Problems Problem Noted Date Diagnosed Date [...] as of this encounter (statuses as of 02/04/2025) Immunizations Name Administration Dates Next Due COVID-19 mRNA, LNP-s, No Pre serve, 2-Dose Series ([employer]) 12/26/2021,2021,05/24/2021 Covid-19, Mrna, Lnp-s, Pf, B ivalent, [...] Sign Reading Time Taken Comments Blood Pressure 116/55 02/03/2025 8:00 AM EDT Pulse 55 02/03/2025 8:00 AM EDT Temperature 36.1 °C (97 °F) 02/03/2025 8:00 AM EDT Respiratory Rate 14 02/03/2025 8:00 AM EDT Oxygen Saturation 93% 02/03/2025 8:00 AM EDT Inhaled Oxygen Concentration - - Weight 89 kg (196 lb 3.4 oz) 02/03/2025 6:00 AM EDT Height 165.1 cm (5' 5") 01/31/2025 4:00 AM EDT Body Mass Index 32.65 01/31/2025 4:00 AM EDT documented in this [...] Entry Date Author Yes 01/30/2025 7:53 PM EDMeng Torre RN documented in this encounter Discharge Summaries * Meeta Garner PA-C - 02/03/2025 7:06 AM EDT [address] [address] Admission Date: 01/30/2025 Discharge Date: 02/03/2025 DISCHARGE DIAGNOSES: Active Hospital Problems Diagnosis *Principal Diagnosis - Multiple injuries due to trauma Impaired mobility and ADLs Gait abnormality Macular degeneration Fall Laceration of brow without complication SAH (subarachnoid hemorrhage) (HCC) SDH (subdural hematoma) (HCC) Hematoma of right thigh Closed fracture of distal end of right radius Contusion of right knee Obesity Generalized anxiety disorder Essential (primary) hypertension Major depressive disorder, recurrent severe without psychotic features (HCC) Mild vascular neurocognitive disorder History of CVA (cerebrovascular accident) Dyslipidemia, goal LDL below 100 Type 2 diabetes mellitus with hemoglobin A1c goal of less than 7.0% ([facility]) Restless leg syndrome Hypothyroidism Resolved Hospital Problems No resolved problems to display. Other Significant Diagnoses: none CONDITION ON DISCHARGE: stable Cognition: normal DISPOSITION ON DISCHARGE: Inpatient Rehab FOLLOW-UP: Future Appointments Appt Date/Time Provider Department 02/13/2025 10:30 AM Ines Vargas PA-C Orthopaedics [facility] 02/14/2025 9:45 AM [facility] 02/27/2025 11:00 AM Janice Freeman PA-C [facility] 03/08/2025 9:00 AM D[facility] Radiology [facility] 03/08/2025 11:00 AM Gio Zaragoza CRNP Rheumatology [facility] MEDICATIONS ON DISCHARGE: MEDICATION UPDATES AT DISCHARGE START taking these medications INSTRUCTIONS Docusate Sodium 100 MG Capsule Commonly known as: Colace Take 1 Capsule by mouth in the morning and 1 Capsule before bedtime. hEParin 5000 UNIT/0.5ML injection Inject 0.5 mL under the skin in the morning and 0.5 mL at noon and 0.5 mL before bedtime. Do all this for 7 days. Or until mobilization has improved at the discretion of the rehab facility provider. levETIRAcetam 500 MG Tablet Commonly known as: Keppra Take 1 Tablet by mouth in the morning and 1 Tablet before bedtime. Do all this for 3 days. oxyCODONE 1 mg/ml solution Commonly known as: Roxicodone Take 2.5 mL by mouth every 4 hours as needed for Pain, Moderate (may take 5 mg for pain, severe). senna Tablet Commonly known as: Senokot Take 2 Tablets by mouth daily as needed for Constipation for up to 5 days. CONTINUE taking these medications INSTRUCTIONS Acetaminophen ER 650 MG Tbcr Commonly known as: Tylenol ER Take 1 Tablet by mouth every 8 hours as needed for Pain, Moderate. alendronate 70 MG Tablet Commonly known as: Fosamax Take 1 Tablet by mouth once a week. With a full glass of water. Remain upright for 30 minutes aftertaking. atorvaSTATin 40 MG Tablet Commonly known as: Lipitor Take 1 Tablet by mouth in the morning. buPROPion XL 300 MG Tb24 Commonly known as: Wellbutrin XL Take 1 Tablet by mouth in the morning. cholecalciferol (VIT D3) 1000 UNITS Tablet Commonly known as: Vitamin D3 Take 1 Tablet by mouth in the morning. FLUoxetine HCl 40 MG Capsule Commonly known as: PROzac Take 1 capsule by mouth in the morning Gabapentin 300 MG Capsule Commonly known as: Neurontin Take 1 Capsule by mouth at bedtime. Hydrocortisone 2.5 % lotion Apply to ear canal daily as needed for itching. Levothyroxine Sodium 125 MCG Tablet Commonly known as: Levoxyl TAKE 1 TABLET BY MOUTH IN THE MORNING AT LEAST 30 MINUTES PRIOR TO OTHER MEDICATIONS OR BREAKFAST LORazepam 1 MG Tablet Commonly known as: Ativan TAKE 1/2 TABLET BY MOUTH EVERY 8 HOURS NEEDED FOR ANXIETY (1/2 TAB UP TO THREE TIMES DAILY). metFORMIN ER 500 MG Tb24 Commonly known as: Glucophage XR TAKE 2 TABLETS BY MOUTH TWICE DAILY WITH MORNING MEAL AND WITH EVENING MEAL Mirtazapine 15 MG Tablet Commonly known as: Remeron Take 1 Tablet by mouth at bedtime. [employer] Generic drug: Glucose Blood USE STRIP TO CHECK GLUCOSE UP TO TWICE DAILY DIRECTED PreserVision AREDS 2 Capsule Take 1 Cap by mouth 2 times a day. Sodium Chloride (Hypertonic) 5 % ophthalmic solution Commonly known as: Dianne-128 Instill 1 Drop into the right eye in the morning and 1 Drop before bedtime. STOP taking these medications clopidogrel 75 MG Tablet Commonly known as: pLAVix Lisinopril 5 MG Tablet Commonly known as: Prinivil ALLERGIES: Sertraline hcl, Simvastatin, and Sulfa antibiotics INSTRUCTIONS: Activity: NWB right wrist Diet: normal diet Code Status: No Code Indwelling devices: none ADMISSION HISTORY & PHYSICAL EXAM (focused): HISTORY AND PHYSICAL EXAMINATION - Trauma Surgery [address] [address] Name: Allie Diaz Location: Date: 01/30/2025 Time: 5:25 PM Date and Time Patient was Seen: 01/30/2025 at 1701 FINAL ADMISSION STATUS: Alert Level 2, time - 1701 Dr. Merchant led the Trauma Team in the care of this patient. The following represents documentationof the resuscitation performed by the entire trauma team under the leadership of the physician. There was pre-hospital notification of the case and patient condition. Chief Complaint: Right hip, right rib pain History of Present Illness: Patient is a 79 year old female with a PMHx of CVA, T2DM, DLD, hypothyroidism, anxiety, and depression who was a transfer from [facility] as a level 2 trauma alert. The patient is GCS 14, unable to provide a reliable history due to confusion. She was reported to be found down in a [employer] parking lot, confused, and possible left sided facial droop. She has a right forehead hematoma and eyebrow laceration that was repaired at OSH. Scans show SDH and right frontal subarachnoid hemorrhage. She also endorses some right sided rib and hip pain as well as a hematoma of the right hip. Unable to provide a reliable ROS secondary to confusion. MECHANISM OF INJURY: Fall from standing MODE OF TRANSPORTATION: ambulance LOSS OF CONSCIOUSNESS: unknown TETANUS VACCINE: There are no preventive care reminders to display for this patient. Administered in Trauma Kay: no PAST MEDICAL HISTORY: Past Medical History Past Medical History: Diagnosis Date Benign neoplasm [...] villous adenoma, FU due 09/20 Uterine leiomyoma PAST SURGICAL HISTORY: Past Surgical History Past Surgical History: Procedure Laterality Date BIOPSY [...] 12/18/2005 hyperplastic 3 mm polyp, Dr Tinoco, [facility], repeat 2008 DEXA SCAN/BONE MINERAL AXIAL 2001 ok repeat in 2006 DIABETIC EYE EXAM 08/02/2012 no diabetic retinopathy FLEX SIG, GI REFERRAL OP 04/05/1999 polyps; diverticulitis INFORMATION labor and del x 3 INJECTION OF EYE DRUG Right 03/26/2017 # 1 Eylea OD, Dr. Reynoso INJECTION OF EYE DRUG Right 04/29/2017 # 2 Eylea OD, INJECTION OF EYE DRUG Right 07/23/2017 # 3 Eylea OD, Dr. Reynoso INJECTION OF EYE DRUG Right 08/26/2017 # 4 Eylea OD, INJECTION OF EYE DRUG Right 10/22/2017 # 5 Eylea OD, Dr. Reynoso INJECTION OF EYE DRUG Right 12/24/2017 # 6 Eylea OD, INJECTION OF EYE DRUG Right 01/27/2018 # 7 Eylea OD, Dr. Reynoso INJECTION OF EYE DRUG Right 03/04/2018 # 8 Eylea OD, Dr. Reynoso INJECTION OF EYE DRUG Right 04/07/2018 # 9 Eylea OD, Dr. Reynoso INJECTION OF EYE DRUG Right 05/13/2018 # 10 Eylea OD, INJECTION OF EYE DRUG Right 06/23/2018 # 11 Eylea OD, Dr. Reynoso INJECTION OF EYE DRUG Right 08/25/2018 # 12 Eylea OD, INJECTION OF EYE DRUG Right 10/27/2018 # 13 Eylea OD, Dr. Reynoso INJECTION OF EYE DRUG Right 12/30/2018 # 14 Eylea OD, INJECTION OF EYE DRUG Right 02/23/2019 # 15 Eylea OD, Dr. Reynoso INJECTION OF EYE DRUG Right 04/20/2019 # 16 Eylea OD, INJECTION OF EYE DRUG Right 06/15/2019 # 17 Eylea OD, Dr. Reynoso INJECTION OF EYE DRUG Right 08/10/2019 # 1 Lucentis 0.5mg OD, Dr. Reynoso INJECTION OF EYE DRUG Right 09/22/2019 #18 Eylea OD, INJECTION OF EYE DRUG Right 11/02/2019 # 19 Eylea OD, INJECTION OF EYE DRUG Right 12/14/2019 # 20 Eylea OD, Dr. Reynoso INJECTION OF EYE DRUG Right 02/08/2020 # 21 Eylea OD, Dr. Reynoso INJECTION OF EYE DRUG Right 03/28/2020 # 22 Eylea OD, Dr. Reynoso INJECTION OF EYE DRUG Right 05/09/2020 # 23 Eylea OD, Dr. Reynoso INJECTION OF EYE DRUG Right 06/15/2020 # 24 Eylea OD, INJECTION OF EYE DRUG Right 08/02/2020 # 25 Eylea OD, Dr. Reynoso INJECTION OF EYE DRUG Right 09/12/2020 # 26 Eylea OD, Dr. Reynoso INJECTION OF EYE DRUG Right 10/17/2020 # 27 Eylea OD, Dr. Reynoso INJECTION OF EYE DRUG Right 12/05/2020 # 28 Eylea OD, Dr. Reynoso INJECTION OF EYE DRUG Right 01/09/2021 # 29 Eylea OD, Dr. Reynoso INJECTION OF EYE DRUG Right 02/27/2021 # 30 Eylea OD, INJECTION OF EYE DRUG Right 04/18/2021 # 31 Eylea OD, INJECTION OF EYE DRUG Right 06/13/2021 #32 Eylea OD, Dr Reynoso INJECTION OF EYE DRUG Right 08/15/2021 # 33 Eylea OD, Dr. Reynoso INJECTION OF EYE DRUG Right 09/26/2021 # 34 Eylea OD, INJECTION OF EYE DRUG Right 11/11/2021 #[address] Reynoso INJECTION OF EYE DRUG Right 12/25/2021 # 36 Eylea OD, Dr. Reynoso INJECTION OF EYE DRUG Right 02/06/2022 # 37 Eylea OD, Dr. Reynoso INJECTION OF EYE DRUG Right 03/27/2022 # 38 Eylea OD, Dr. Reynoso INJECTION OF EYE DRUG Right 05/16/2022 # 39 Eylea OD, Dr. Reynoso INJECTION OF EYE DRUG Right 07/25/2022 # 40 Eylea OD, Dr. Reynoso INJECTION OF EYE DRUG Right 09/05/2022 # 41 Eylea OD, Dr. Reynoso INJECTION OF EYE DRUG Right 10/24/2022 # 42 Eylea OD, Dr. Reynoso INJECTION OF EYE DRUG Right 12/11/2022 #43 EYLEA OD; DR REYNOSO INJECTION OF EYE DRUG Right 01/29/2023 # 44 Eylea OD, Dr. Reynoso INJECTION OF EYE DRUG Right 03/26/2023 # 45 Eylea OD, Dr. Reynoso INJECTION OF EYE DRUG Right 05/26/2023 # 46 Eylea OD, Dr. Reynoso INJECTION OF EYE DRUG Right 08/04/2023 #47 Eylea OD; Dr Reynoso INJECTION OF EYE DRUG Right 09/29/2023 #48 Eylea OD, Dr. Reynoso INJECTION OF EYE DRUG Right 12/11/2023 # 49 Eyela OD, Dr. Reynoso INJECTION OF EYE DRUG Right 02/09/2024 # 50 Eylea OD, Dr. Reynoso INJECTION OF EYE DRUG Right 04/19/2024 # 51 Eylea OD, Dr. Reynoso INJECTION OF EYE DRUG Right 06/16/2024 #52 Eylea OD, Dr. Reynoso INJECTION OF EYE DRUG Right 08/16/2024 #53 Eylea OD, Dr. Reynoso INJECTION OF EYE DRUG Right 10/21/2024 #54 Eylea OD, Dr. Reynoso INJECTION OF EYE DRUG Right 12/16/2024 # 55 Eylea OD, Dr. Reynoso LIGATE/CUT OVIDUCT(S) 1974 MAMMOGRAM - BILATERAL 01/07/2005 birad 2 MAMMOGRAM - BILATERAL 06/23/2008 birad code 2 MAMMOGRAM SCREENING-BILATERAL 01/04/2004 bengin findings, yearly mammograms appropriate, birad code 2 MISCELLANEOUS ORDER ([facility] ONLY) Right 03/26/2017-03/26/2018 EYLEA OD CONSENT SIGNED, Dr. Reynoso MISCELLANEOUS ORDER ([facility] ONLY) Right 04/07/2018-04/07/2019 Eylea OD consent signed, Dr. Reynoso MISCELLANEOUS ORDER ([facility] ONLY) ACT 112 SIGNED, Dr. Reynoso (12-30-2018) MISCELLANEOUS ORDER ([facility] ONLY) Right 04/20/2019-04/20/2020 Eylea OD consent signed, MISCELLANEOUS ORDER ([facility] ONLY) Right 08/10/2019-08/10/2020 LUCENTIS 0.5MG CONSENT OD SIGNED; DR REYNOSO MISCELLANEOUS ORDER ([facility] ONLY) Right 05/09/2020-05/09/2021 Eylea OD consent signed, OTHER Eylea OD Consent signed 06/13/2021-06/13/22 OTHER (INFORMATION) EYLEA OU CONSENT SIGNED Dr. Corbin (exp 07-25-23) OTHER (INFORMATION) CONSENT OU EYLEA exp 08/04/24; Dr Reynoso OTHER (INFORMATION) Eylea OU consent Dr. Reynoso/Cristóbal expires 08/16/2025 REMOVAL OF THYROID LESION 1999 REMOVE CATARACT, INSERT LENS PROSTH Right 02/02/2017 right EXTRACAPSULAR CATARACT REMOVAL WITH INTRAOCULAR LENS performed by Gabriel Acosta MD at OR [facility] REMOVE CATARACT, INSERT LENS PROSTH Left 02/09/2017 left EXTRACAPSULAR CATARACT REMOVAL WITH INTRAOCULAR LENS performed by Gabriel Acosta MD at OR [facility] CURRENT HOSPITAL MEDICATIONS: Note that discontinued and completed medications (per the MAR) continue to display for 24 hours. Ordered medications to be given in the future also display. Current Facility-Administered Medications Medication Dose Route Frequency Provider Acetaminophen (Tylenol) tab 975 mg 975 mg Oral Q8H Juliana Farrell CRNP [START ON 01/31/2025] chlorhexidine gluconate cloth 2 % pad External Daily 1000 Juliana Farrell CRNP Docusate Sodium (Colace) cap 100 mg 100 mg Oral BID(AM/PM) Juliana Farrell CRNP [COMPLETED] Iopamidol (Isovue 370) inj 80 mL 80 mL Intravenous Once Lise Merchant MD NSS infusion Intravenous Continuous Juliana Farrell CRNP ondansetron ODT (Zofran) tab 4 mg 4 mg On Tongue Q6H PRN Juliana Farrell CRNP Or ondansetron (Zofran) inj 4 mg 4 mg IV Push Q6H PRN Juliana Farrell CRNP oxyCODONE (Oxy IR) tab 5 mg 5 mg Oral Q4H PRN Juliana Farrell CRNP oxyCODONE (Roxicodone) oral syrup 2.5 mg 2.5 mg Oral Q4H PRN Juliana Farrell CRNP senna (Senokot) 2 Tablet 2 Tablet Oral BID(AM/PM) Juliana Farrell CRNP Aflibercept (Eylea) intraviteal prefilled syringe 2 mg 2 mg Intravitreal PRN ROPivacaine (Naropin) inj 1.5 mg 1.5 mg Injection PRN Current Outpatient Medications Medication LORazepam 1 MG Oral Tablet (Ativan) Gabapentin 300 MG Oral Capsule (Neurontin) buPROPion HCl ER (XL) 300 MG Oral Tablet Extended Release 24 Hour (Wellbutrin XL) Mirtazapine 15 MG Oral Tablet (Remeron) Levothyroxine Sodium 125 MCG Oral Tablet (Levoxyl) Lisinopril 5 MG Oral Tablet (Prinivil) FLUoxetine HCl 40 MG Oral Capsule (PROzac) metFORMIN HCl ER 500 MG Oral Tablet Extended Release 24 Hour (Glucophage XR) OneTouch Ultra In Vitro Strip (Glucose Blood) Atorvastatin Calcium 40 MG Oral Tablet (Lipitor) Clopidogrel Bisulfate 75 MG Oral Tablet (pLAVix) Alendronate Sodium 70 MG Oral Tablet (Fosamax) Hydrocortisone 2.5 % External Lotion Hydrocortisone 2 % External Lotion Sodium Chloride (Hypertonic) 5 % Ophthalmic Solution Vitamin D3 25 MCG (1000 UT) Oral Tablet (Vitamin D3) Acetaminophen ER 650 MG Oral Tablet Extended Release Multiple Vitamins-Minerals (PRESERVISION AREDS 2) Capsule ALLERGIES: Allergies Sertraline hcl, Simvastatin, and Sulfa antibiotics SOCIAL HISTORY: Social History Social History Tobacco Use Smoking status: Never Smokeless tobacco: Never Vaping Use Vaping status: Never Used Substance Use Topics Alcohol use: Not Currently Comment: rare Drug use: No FAMILY HISTORY: Family History Family History Problem Relation Name Age of Onset Eye Problems Father AMD Eye Problems Sister AMD Cancer Father lung Diabetes Father niddm Diabetes Mother iddm Diabetes Sister iddm Cancer Sister uterine ca Heart Disorder Sister Heart Disorder Mother chf Gastro-intestinal disorder Sister diverticulitis Heart Disorder Son fatal PR at age 49 No Past Hx Son Glaucoma Other Denies family hx Breast Cancer Grandmother (Maternal) REVIEW OF SYSTEMS: See HPI for pertinent positives and negatives, all other systems are negative. COLLARED: no BACKBOARD: no INTUBATED: no PHYSICAL EXAM: Most Recent Vital Signs: BP: 117 mmHg/64 mmHg (01/30/25 1730) Pulse: 70 (01/30/25 1751) Resp: 14 (01/30/25 175) Temp: 37.11 C (01/30/25 1703) Temp Summary: Temp Min: 37.1 °C (98.8 °F) Max: 37.1 °C (98.8 °F) SpO2: 96 % (01/30/25 1751) O2 flow rate: Supplemental O2 Delivery: Weight: 91.2 kg (201 lb 1 oz) (01/30/25 1710) Rhythm: NSR Head: normocephalic / atraumatic Eyes: pupils 3 mm, bilaterally reactive to light, extraocular muscles intact ENT: oropharynx clear, moist mucous membranes, dentures in place Neck: supple, non-tender, trachea midline Respiratory: clear to auscultation bilaterally Cardiovascular: regular rate and rhythm, palpable peripheral pulses present Abdomen: soft, non-tender, non-distended Back: no tenderness across thoracic / lumbar spine, no stepoffs or deformities Pelvis: non-tender, stable to anterior-posterior/lateral compression Rectal: deferred Genitourinary: normal female genitalia Musculoskeletal: no palpable long bone deformities, motor / sensation grossly intact, strength 5/5 in all extremities Skin: grossly intact; large hematoma to right hip, right eyebrow hematoma Neurologic: GCS Adult: eyes open 4 = spontaneous, best verbal response 4 = disoriented, inappropriate, cries, best motor response 6 = obeys commands appropriate for age HOSPITAL COURSE (focused): Allie Diaz was admitted on 01/30/25 after a presumed fall (found down in [facility] parking lot) and was initially seen at [facility] and then transferred to [facility] for further trauma care. She was found to have the following injuries: A small subdural hematoma and subarachnoid hemmorrahge Right distal radius fracture She was seen by neurosurgery and watched closely with neurological checks. She was given medication(Keppra) reduce the risk of seizures and a repeat CAT scan to ensure that the head bleed remained stable. She will need to follow-up with neurosurgery clinic in 2 weeks and hold her Plavix medicationuntil told you can restart by neurosurgery during follow-up. She was seen by Orthopedics for the right wrist fracture and did not require surgery during this admission. A splint was placed and outpt follow up is planned. Operations & Procedures: none this admission Complications: none significant SIGNIFICANT RESULTS: Vital Signs (last recorded): Most Recent Systolic BP: 116 mmHg (02/03/25 08) Most Recent Diastolic BP: 55 mmHg (02/03/25 08) Pulse: 57 (02/03/25 07) Resp: 13 (02/03/25 07) Most Recent Temperature: 36.11 C (02/03/25 08) Weight: 89 kg (196 lb 3.4 oz) (02/03/25 06) SpO2: 95 % (02/03/25 07) Labs: CHEMISTRY: BUN, Creatinine, GFR Estimated, Sodium, Potassium, Chloride, Carbon Dioxide, Glucose, Calcium (see below for most recent value): Lab Results Component Value Date/Time BUN 23 (H) 02/02/2025 06:22 AM BUN 16 11/19/2020 08:37 AM BUN 11 01/31/1997 07:31 AM CREAT 0.9 02/02/2025 06:22 AM CREAT 0.8 11/19/2020 08:37 AM GFRESTIMATED >60.0 11/19/2020 08:37 AM NA 141 02/02/2025 06:22 AM NA 140 11/19/2020 08:37 AM POTASSIUM 4.2 02/02/2025 06:22 AM POTASSIUM 4.5 11/19/2020 08:37 AM POTASSIUM 4.2 01/31/1997 07:31 AM CL 108 (H) 02/02/2025 06:22 AM CL 101 11/19/2020 08:37 AM CO2 24 02/02/2025 06:22 AM CO2 28 11/19/2020 08:37 AM CA 8.1 (L) 02/02/2025 06:22 AM CA 9.2 11/19/2020 08:37 AM BLOOD COUNT: WBC, Hgb, Platelets (see below for most recent value): Lab Results Component Value Date/Time WBC 6.31 02/03/2025 07:06 AM WBC 6.72 03/07/2013 08:28 AM WBC 6.7 01/31/1997 07:31 AM WBC NEGATIVE 01/31/1997 07:31 AM HGB 10.5 (L) 02/03/2025 07:06 AM HGB 14.5 03/07/2013 08:28 AM HGB 14.6 01/31/1997 07:31 AM PLT 196 02/03/2025 07:06 AM PLT 222 03/07/2013 08:28 AM PLT 224 01/31/1997 07:31 AM Imaging (focused): XR WRIST 3 OR MORE VIEWS Final Result EXAM XR WRIST 3 OR MORE VIEWS-01/31/2025 12:30 am HISTORY post splint COMPARISON XR WRIST 3 OR MORE VIEWS, ACC: [id number], dated 2025-01-30 17:34:21; XR HAND 3 OR MORE VIEWS, ACC: [id number], dated 2025-01-30 17:34:21; XR FOREARM 2 VIEWS, ACC: [id number], dated 2025-01-30 17:34:21 TECHNIQUE Three views of the right wrist. FINDINGS Intra-articular distal right radius fracture in stable alignment status post splinting. Carpal alignment appears preserved. IMPRESSION IMPRESSION Intra-articular distal right radius fracture in stable alignment status post splinting. XR HIP UNILAT 2-3 VIEWS INCLUDING AP PELVIS Final Result EXAM XR FEMUR MINIMUM 2 VIEWS; XR HIP UNILAT 2-3 VIEWS INCLUDING AP PELVIS - 01/31/2025 12:30 am HISTORY 79 y/o year old F with fall TECHNIQUE AP, cross-table lateral views of the right hip, AP and lateral views of the right femur. Single AP view of the pelvis. COMPARISON CT abdomen pelvis 01/30/2025 FINDINGS Bones: No acute fracture dislocation. Joints: Tricompartmental osteophytic lipping in the knee. The bilateral hip joint spaces are maintained bilaterally. Low lumbar spondylosis. Soft tissues: Generalized pelvic enthesopathy. Enthesopathy of the bilateral greater trochanters. Contrast opacifies the bladder. Vascular calcifications. IMPRESSION IMPRESSION 1. No acute fracture or dislocation. 2. Mild osteoarthritis of the right knee. XR FEMUR MINIMUM 2 VIEWS Final Result EXAM XR FEMUR MINIMUM 2 VIEWS; XR HIP UNILAT 2-3 VIEWS INCLUDING AP PELVIS - 01/31/2025 12:30 am HISTORY 79 y/o year old F with fall TECHNIQUE AP, cross-table lateral views of the right hip, AP and lateral views of the right femur. Single AP view of the pelvis. COMPARISON CT abdomen pelvis 01/30/2025 FINDINGS Bones: No acute fracture dislocation. Joints: Tricompartmental osteophytic lipping in the knee. The bilateral hip joint spaces are maintained bilaterally. Low lumbar spondylosis. Soft tissues: Generalized pelvic enthesopathy. Enthesopathy of the bilateral greater trochanters. Contrast opacifies the bladder. Vascular calcifications. IMPRESSION IMPRESSION 1. No acute fracture or dislocation. 2. Mild osteoarthritis of the right knee. CT UPPER EXTREMITY RIGHT WO CONTRAST Final Result EXAM CT UPPER EXTREMITY RIGHT WO CONTRAST - 01/31/2025 12:13 am HISTORY drf COMPARISON Radiographs 01/30/2025. TECHNIQUE Contiguous helical axial imaging through the RT wrist was obtained without contrast. Coronal and sagittal reconstructed images are provided. FINDINGS BONES: Comminuted and slightly impacted distal radius intra-articular fracture with dominant fracture lines along the base of the radial styloid. No additional fractures are identified. 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 Borderline widening of the scapholunate interval. Ulnar minus variance. SOFT TISSUES: Soft tissue swelling about the wrist. Partially imaged intra-abdominal contents are grossly unremarkable. IMPRESSION IMPRESSION Distal radius intra-articular fracture. CT HEAD/BRAIN WO CONTRAST Final Result EXAM CT HEAD WITHOUT CONTRAST -01/31/2025 12:00 [...] microvascular ischemia. Chronic encephalomalacia along the left temporoparietal lobe compatible with a remote left MCA [...] Bilateral mastoid air cells are clear. The lime ocular lenses have been surgically replaced. IMPRESSION IMPRESSION Unchanged small volume subarachnoid hemorrhage along the right frontal lobe and small anterior parafalcine subdural hematoma. No evidence of new or progressive hemorrhage. I have personally reviewed this examination and agree with the resident/fellow physician's interpretation. XR FOREARM 2 VIEWS Final Result EXAM RT UPREXT; KNEE; UPERXT XR FOREARM 2 VIEWS; XR KNEE 1-2 VIEWS; XR WRIST 3 OR MORE VIEWS; XR HAND 3 OR MORE VIEWS; XR ELBOW 3 OR MORE VIEWS - 01/30/2025 5:52 pm HISTORY pain after fall COMPARISON RADIOLOGY EXAM - CT (IMAGES ONLY, NO REPORT), ACC: [id number], dated 2025-01-30 12:21:32 TECHNIQUE Radiography of the RT UPREXT; KNEE; UPERXT was performed. FINDINGS Right wrist: Diffuse osseous demineralization limits assessment. Acute mildly impacted comminuted mildly displaced intra-articular distal radius fractures. No additional fracture or dislocation. Soft tissue swelling. Question trace triangular fibrocartilage mineralization. Mild negative ulnar variance. Right hand: No additional fracture or dislocation. Soft tissue swelling. Moderate triscaphe degenerative changes. Some spurring of the metacarpals which could be seen in chronic CPPD arthropathy or other etiologies. Right forearm: No additional fracture or dislocation. Soft tissue swelling. Right elbow: No additional fracture or dislocation. Soft tissue swelling. No effusion. Degenerative changes. Tiny chronic fragment adjacent to the medial epicondyle. Right knee: No acute fracture or dislocation. Lateral tibial spine irregularity favors chronic change. Soft tissue swelling and medial knee soft tissue contusion. No sizable effusion. Moderate tricompartmental degenerative changes, most pronounced in the patellar followed by the medial compartments. IMPRESSION IMPRESSION 1. Acute right intra-articular distal radius fracture. 2. Scapholunate interval appears mildly widened. Mild negative ulnar variance. XR WRIST 3 OR MORE VIEWS Final Result EXAM RT UPREXT; KNEE; UPERXT XR FOREARM 2 VIEWS; XR KNEE 1-2 VIEWS; XR WRIST 3 OR MORE VIEWS; XR HAND 3 OR MORE VIEWS; XR ELBOW 3 OR MORE VIEWS - 01/30/2025 5:52 pm HISTORY pain after fall COMPARISON RADIOLOGY EXAM - CT (IMAGES ONLY, NO REPORT), ACC: [id number], dated 2025-01-30 12:21:32 TECHNIQUE Radiography of the RT UPREXT; KNEE; UPERXT was performed. FINDINGS Right wrist: Diffuse osseous demineralization limits assessment. Acute mildly impacted comminuted mildly displaced intra-articular distal radius fractures. No additional fracture or dislocation. Soft tissue swelling. Question trace triangular fibrocartilage mineralization. Mild negative ulnar variance. Right hand: No additional fracture or dislocation. Soft tissue swelling. Moderate triscaphe degenerative changes. Some spurring of the metacarpals which could be seen in chronic CPPD arthropathy or other etiologies. Right forearm: No additional fracture or dislocation. Soft tissue swelling. Right elbow: No additional fracture or dislocation. Soft tissue swelling. No effusion. Degenerative changes. Tiny chronic fragment adjacent to the medial epicondyle. Right knee: No acute fracture or dislocation. Lateral tibial spine irregularity favors chronic change. Soft tissue swelling and medial knee soft tissue contusion. No sizable effusion. Moderate tricompartmental degenerative changes, most pronounced in the patellar followed by the medial compartments. IMPRESSION IMPRESSION 1. Acute right intra-articular distal radius fracture. 2. Scapholunate interval appears mildly widened. Mild negative ulnar variance. XR HAND 3 OR MORE VIEWS Final Result EXAM RT UPREXT; KNEE; UPERXT XR FOREARM 2 VIEWS; XR KNEE 1-2 VIEWS; XR WRIST 3 OR MORE VIEWS; XR HAND 3 OR MORE VIEWS; XR ELBOW 3 OR MORE VIEWS - 01/30/2025 5:52 pm HISTORY pain after fall COMPARISON RADIOLOGY EXAM - CT (IMAGES ONLY, NO REPORT), ACC: [id number], dated 2025-01-30 12:21:32 TECHNIQUE Radiography of the RT UPREXT; KNEE; UPERXT was performed. FINDINGS Right wrist: Diffuse osseous demineralization limits assessment. Acute mildly impacted comminuted mildly displaced intra-articular distal radius fractures. No additional fracture or dislocation. Soft tissue swelling. Question trace triangular fibrocartilage mineralization. Mild negative ulnar variance. Right hand: No additional fracture or dislocation. Soft tissue swelling. Moderate triscaphe degenerative changes. Some spurring of the metacarpals which could be seen in chronic CPPD arthropathy or other etiologies. Right forearm: No additional fracture or dislocation. Soft tissue swelling. Right elbow: No additional fracture or dislocation. Soft tissue swelling. No effusion. Degenerative changes. Tiny chronic fragment adjacent to the medial epicondyle. Right knee: No acute fracture or dislocation. Lateral tibial spine irregularity favors chronic change. Soft tissue swelling and medial knee soft tissue contusion. No sizable effusion. Moderate tricompartmental degenerative changes, most pronounced in the patellar followed by the medial compartments. IMPRESSION IMPRESSION 1. Acute right intra-articular distal radius fracture. 2. Scapholunate interval appears mildly widened. Mild negative ulnar variance. XR KNEE 1-2 VIEWS Final Result EXAM RT UPREXT; KNEE; UPERXT XR FOREARM 2 VIEWS; XR KNEE 1-2 VIEWS; XR WRIST 3 OR MORE VIEWS; XR HAND 3 OR MORE VIEWS; XR ELBOW 3 OR MORE VIEWS - 01/30/2025 5:52 pm HISTORY pain after fall COMPARISON RADIOLOGY EXAM - CT (IMAGES ONLY, NO REPORT), ACC: [id number], dated 2025-01-30 12:21:32 TECHNIQUE Radiography of the RT UPREXT; KNEE; UPERXT was performed. FINDINGS Right wrist: Diffuse osseous demineralization limits assessment. Acute mildly impacted comminuted mildly displaced intra-articular distal radius fractures. No additional fracture or dislocation. Soft tissue swelling. Question trace triangular fibrocartilage mineralization. Mild negative ulnar variance. Right hand: No additional fracture or dislocation. Soft tissue swelling. Moderate triscaphe degenerative changes. Some spurring of the metacarpals which could be seen in chronic CPPD arthropathy or other etiologies. Right forearm: No additional fracture or dislocation. Soft tissue swelling. Right elbow: No additional fracture or dislocation. Soft tissue swelling. No effusion. Degenerative changes. Tiny chronic fragment adjacent to the medial epicondyle. Right knee: No acute fracture or dislocation. Lateral tibial spine irregularity favors chronic change. Soft tissue swelling and medial knee soft tissue contusion. No sizable effusion. Moderate tricompartmental degenerative changes, most pronounced in the patellar followed by the medial compartments. IMPRESSION IMPRESSION 1. Acute right intra-articular distal radius fracture. 2. Scapholunate interval appears mildly widened. Mild negative ulnar variance. XR ELBOW 3 OR MORE VIEWS Final Result EXAM RT UPREXT; KNEE; UPERXT XR FOREARM 2 VIEWS; XR KNEE 1-2 VIEWS; XR WRIST 3 OR MORE VIEWS; XR HAND 3 OR MORE VIEWS; XR ELBOW 3 OR MORE VIEWS - 01/30/2025 5:52 pm HISTORY pain after fall COMPARISON RADIOLOGY EXAM - CT (IMAGES ONLY, NO REPORT), ACC: [id number], dated 2025-01-30 12:21:32 TECHNIQUE Radiography of the RT UPREXT; KNEE; UPERXT was performed. FINDINGS Right wrist: Diffuse osseous demineralization limits assessment. Acute mildly impacted comminuted mildly displaced intra-articular distal radius fractures. No additional fracture or dislocation. Soft tissue swelling. Question trace triangular fibrocartilage mineralization. Mild negative ulnar variance. Right hand: No additional fracture or dislocation. Soft tissue swelling. Moderate triscaphe degenerative changes. Some spurring of the metacarpals which could be seen in chronic CPPD arthropathy or other etiologies. Right forearm: No additional fracture or dislocation. Soft tissue swelling. Right elbow: No additional fracture or dislocation. Soft tissue swelling. No effusion. Degenerative changes. Tiny chronic fragment adjacent to the medial epicondyle. Right knee: No acute fracture or dislocation. Lateral tibial spine irregularity favors chronic change. Soft tissue swelling and medial knee soft tissue contusion. No sizable effusion. Moderate tricompartmental degenerative changes, most pronounced in the patellar followed by the medial compartments. IMPRESSION IMPRESSION 1. Acute right intra-articular distal radius fracture. 2. Scapholunate interval appears mildly widened. Mild negative ulnar variance. RADIOLOGY EXAM - CT (IMAGES ONLY, NO REPORT) Final Result This is an imaging study not interpreted or resulted by a [employer] or [employer] contracted radiologist. RADIOLOGY EXAM - CT (IMAGES ONLY, NO REPORT) Final Result This is an imaging study not interpreted or resulted by a [facility] or [facility] contracted radiologist. RADIOLOGY EXAM - CT (IMAGES ONLY, NO REPORT) Final Result This is an imaging study not interpreted or resulted by a [facility] or [facility] contracted radiologist. RADIOLOGY EXAM - CT (IMAGES ONLY, NO REPORT) Final Result This is an imaging study not interpreted or resulted by a [facility] or [facility] contracted radiologist. RADIOLOGY EXAM - CT (IMAGES ONLY, NO REPORT) Final Result This is an imaging study not interpreted or resulted by a [facility] or [facility] contracted radiologist. RADIOLOGY EXAM - CT (IMAGES ONLY, NO REPORT) Final Result This is an imaging study not interpreted or resulted by a [facility] or [facility] contracted radiologist. CTA HEAD/CTA NECK Final Result EXAM CTA HEAD/CTA NECK-01/30/2025 5:22 pm HISTORY Trauma. COMPARISON Outside CT head and CTA head/neck performed earlier the same day. MRI brain dated 10/27/[address] scan of the head was performed without contrast. Subsequently,CT angiogram of the head and neck was performed following dynamic intravenous bolus contrast administration. 3D/MIP reformatted images are provided. FINDINGS CT HEAD: Similar scattered trace subarachnoid hemorrhage, most pronounced at the right frontal convexity. Left anterior parafalcine subdural hematoma has slightly increased in size, with maximum thickness now 3-4 mm (previously 2-3 mm). No recent territorial infarct. Generalized volume loss is appreciated. Patchy hypodensities in the cerebral white matter are nonspecific, but most commonly associated chronic microvascular ischemic changes. There is encephalomalacia of along the left temporoparietal lobe consistent with a chronic left MCA infarct. Chronic lacunar infarct in the left caudate lobe. There is no evidence of hydrocephalus or downward tentorial herniation. Facial contusion/laceration at the right eyebrow region. No underlying calvarial fracture. Mild mucosal thickening in the paranasal sinuses. Mastoid air cells are well aerated. Small pilar versus epidermal inclusion cyst in the right parietal scalp. The lime ocular lenses have been surgically replaced. CTA: The aortic arch is conventional in branching pattern. Atherosclerotic plaque at the great vessel origins without evidence of flow limiting stenosis. RIGHT ANTERIOR CIRCULATION: The innominate and common carotid arteries are normal in caliber. There is predominantly calcified plaque at the carotid bifurcation without significant stenosis by NASCET criteria. The cervical segment of the internal carotid artery is normal in caliber. Vascular calcifications are present in the cavernous and supraclinoid segments of the internal carotid artery, causing moderate stenosis of the supraclinoid segment. The A1 segment, anterior communicating artery complex, and A2 segment are within normal limits. The M1 segment and MCA bifurcation are unremarkable. LEFT ANTERIOR CIRCULATION: The common carotid artery is normal in caliber. There is predominantly calcified plaque at the carotid bifurcation, causing mild stenosis of the internal carotid artery origin (less than 50% stenosis by NASCET criteria). The remaining cervical segment of the internal carotid artery is normal in caliber. Vascular calcifications are present in the cavernous and supraclinoid segments of the internal carotid artery without significant stenosis. The A1 segment, anterior communicating artery complex, and A2 segment are within normal limits. The M1 segment is unremarkable. There is chronic embolic calcification of the left M2 segment and diminutive caliber of distal M2 and M3 segments near the site of chronic infarct. POSTERIOR CIRCULATION: Atherosclerosis at the right vertebral artery origin likely causes [id number] stenosis. The vertebral arteries are patent and otherwise uniform in caliber throughout the neck. The intradural vertebral and basilar arteries are normal in caliber. Atherosclerosis of the left V4 segment without significant stenosis. Focal moderate or greater stenosis of the right P1 segment origin. The P1 and P2 segments are otherwise within normal limits. The bilateral posterior communicating arteries are hypoplastic. The dural venous sinuses are not well evaluated due to contrast bolus timing. OTHER: Multiple chronically absent teeth, dental synagogue, and dental caries with periodontal disease. Multilevel degenerative changes are present in the cervical spine. Probable diffuse idiopathic skeletal hyperostosis (DISH). Postsurgical changes of total thyroidectomy. IMPRESSION IMPRESSION 1. Small acute parafalcine subdural hematoma has slightly increased in size, now measuring up to 3-4 mm in maximum thickness. 2. Similar scattered trace subarachnoid hemorrhage. 3. No new sites of intracranial hemorrhage or evidence of an acute territorial infarct. 4. No evidence of traumatic cerebrovascular injury. 5. Right periorbital facial contusion/laceration without associated calvarial fracture. 6. 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 7. Moderate stenosis of the right internal carotid artery supraclinoid segment and moderate or greater stenosis of the right posterior cerebral artery origin. Non flow-limiting atherosclerotic changes in the head/neck, as discussed. The above impression was communicated to Amanda Arechiga and LISE MERCHANT by the university president (Dr. Afua Suarez) via secure text message at 5:32 p.m. and 6:03 p.m., respectively on 01/30/2025. Understanding was expressed. I have personally reviewed this examination and agree with the resident/fellow physician's interpretation. XR CHEST 1 VIEW Final Result EXAM XR CHEST 1 VIEW-01/30/2025 5:15 pm HISTORY Trauma. COMPARISON RADIOLOGY EXAM - CT (IMAGES ONLY, NO REPORT), ACC: [id number], dated 2025-01-30 12:21:32; RADIOLOGY EXAM - CT (IMAGES ONLY, NO REPORT), ACC: [id number], dated 2025-01-30 12:21:32 TECHNIQUE Supine view of the chest. FINDINGS Lines/Tubes/Devices: None. Lungs/Pleura: Hypoventilatory changes. No focal consolidation, pleural effusions, or pneumothorax. Heart/Mediastinum: Size and contours are unchanged. Bones/Soft Tissues: No acutely displaced fracture. Degenerative osseous changes. Upper Abdomen: Visualized portions are unremarkable. IMPRESSION IMPRESSION No acute traumatic findings. I have personally reviewed this examination and agree with the resident/fellow physician's interpretation. XR PELVIS 1 VIEW (Results Pending) CT HEAD/BRAIN WO CONTRAST (Results Pending) CONSULTS ORDERED: ADULT/PEDS ORTHOPAEDICS CONSULT IP RHEUMATOLOGY CONSULT IP ADULT OCCUPATIONAL THERAPY CONSULT IP ADULT PHYSICAL THERAPY CONSULT IP ADULT SPEECH THERAPY CONSULT IP (ACUTE CARE REHAB) REHAB CONSULT IP REFERRING PHYSICIAN: REF: BLADIMIR CAMPOS [address] [place], [place] [address] (office) [phone] (fax) PRIMARY CARE PROVIDER: PCP: Janice Freeman PA-C [address] [place] [address] / [facility] [id number] (office) [phone] (fax) Note: To contact a physician responsible for this patient’s hospital care, please call [facility] [phone]. Cosigned by Amber Rebolledo MD at 02/03/2025 2:43 PM EDT documented in this encounter Discharge Instructions * Discharge Instr - AVS* Meeta Garner PA-C - 02/03/2025 7:06 AM EDT Discharge Date: 02/03/2025 You may call the department of Trauma surgery at [phone] during business hours for any questions or test results. For after-hours emergencies call [phone] and have your doctor paged. The information below provides you with the instructions and the list of medications you need to betaking following discharge from the hospital. If you have any questions, please ask before leaving.Please carry this letter with you when you see your doctor in the clinic. If you have questions, you can reach us at the numbers above. Brief summary of your inpatient care: You were admitted on 01/30/25 after a presumed fall. You were initially seen at [facility] and then transferred to [facility] [place] for further trauma care. You were found to have the following injuries: Traumatic brain injury (small subdural hematoma and subarachnoid hemmorrahge) Right distal radius fracture Head bleed (traumatic brain injury) You were seen by neurosurgery for your traumatic brain injuries (multiple areas of head bleeds) Youwere watched closely with neurological checks. You were given medication (Keppra) to prevent seizures. You need to continue taking this medication as prescribed for 1 week after injury. You had a repeat CAT scan to ensure that the head bleed remained stable. You will need to follow-up with neurosurgery clinic in 2 weeks. DO NOT take Aspirin or Plavix medication until told you can restart by neurosurgery during follow-up. You also should not take any of the following over the counter medicationsthat can lead to increased bleeding. (Aspirin, Motrin aka Ibuprofen, Aleve aka Naproxen, and Fish Oil) Call your healthcare provider right away if you develop any of the following as new symptoms and/orif your current symptoms have worsened or are no longer responding to the recommended treatment: Unrelenting Nausea/Vomiting Constant drowsiness or trouble waking up Confusion or memory loss Blurred vision Trouble walking, talking, or concentrating Increased weakness or problems with coordination Constant headache that can’t be relieved or gets worse Changes in behavior or personality Right wrist fracture You were seen by Orthopedics for your wrist fracture. You did not not require surgery during this admission. A splint was placed and you should not use the right upper extremity to lift or push. Youmay bear weight through the elbow. Follow-up Appointments - You will need to follow-up with Orthopedics in 2 weeks as an outpatient. Appointments with orthopaedics and other appropriate specialties, are or will be scheduled. If there is no orthopaedic appointment listed, and if you have not been contacted for a follow-up date/location/time by one week post-discharge, call to confirm your appointment. When asked to state the name of the physician, please say "Hospital Discharge". ORTHOPAEDIC Discharge Instructions: - Elevate the operative extremity above the level of your heart as much as possible. Wound Care - Keep splint/dressing in place until follow-up visit. - You have sutures and/or sherry. They will be removed at your follow-up visit. - Do not pick at or pull the skin closure materials. Call Orthopaedics for: - Persistent fever greater than 101 degrees F (38.3 degrees C) - Increasing pain not controlled with current medication - Wound drainage saturating multiple dressings and/or clothing - Spreading/increasing redness (some redness is normal) - Any other questions, concerns or test results - Pain medication cannot be refilled outside of normal business hours. Phone Numbers Thursday-Thursday from 8 am to 4 pm: [facility] [place] - [phone] For after-hours emergencies: Call [phone] and have the Orthopaedic Surgeon authorization nurse paged. Your doctors during this hospitalization included: Dr. Juarez- Orthopedic Surgery, Dr. Pisano- Neurosurgery, Dr. Rebolledo- Trauma Surgery Your primary diagnosis at discharge was Traumatic Brain Injury Operations & Procedures: None Complications: none significant Advance Directive Documented: Advance Directive Does the Patient have an Advance Directive? Yes Diet: Regular diet Activity: Weight bearing status - non-weight bearing on right upper extremity (may bear weight through the elbow) Driving: Do not drive. Date you may return to work or school: N/A See your primary care physician (Janice Freeman PA-C) in 1-2 week(s). We have held lisinopril duringthe hospital stay. Your blood pressure was not elevated. Please follow up with your PCP and/or rehab provider regarding follow up for blood pressure checks and timing to resume this medication. Special Instructions: Seek Medical attention with any of the following symptoms: - Fever higher than 101 degrees Fahrenheit - Severe pain not relieved by pain medication - Sudden change or significantly worsening of pain - New or worsening shortness of breath - Persistent nausea and vomiting - Excessive bleeding, swelling, redness, or drainage from any incisions, abrasions or lacerations documented in this encounter Progress Notes * Leandro Schmitt MD - 02/03/2025 9:05 AM EDT CCM - PROGRESS NOTE [facility] [place]-[address] [id number] Name: Allie Diaz Location: [facility] [place] G503/[id number] Date: 02/03/2025 Date of admission: 01/30/2025 Hospital length of stay: 4 days Subjective PATIENT DESCRIPTION: Allie Diaz is a 79 yo on Plavix who was in the [employer] parking lot when she bent down to pick something up and fell. Unknown if there was LOC. Accident occurred around 11:00. She presented to [facility] where CT scans revealed an SAH and SDH and a large right hip hematoma with concern for active extravasation. There were also multiple healing right rib fractures (on our exam she did have tendernessand ecchymosis). She was transferred to [facility] [place] as a level 2 trauma alert. GCS 14 on arrival. INJURY COMPLEX: - Small parafalcine SDH - Scattered trace SAH - Large right thigh hematoma - Right intra-articular distal radius fracture - Right knee contusion - Multiple healing right rib fractures INTERIM HISTORY / SUBJECTIVE: Overnight: NAEO, AFVSS. Mildly hypotensive to 90s ON s/p 500cc bolus w appropriate response. This morning, patient evaluated at bedside. Denies any complaints, pain is well controlled. Sattingwell on RA. Labs WNL. Objective CONSTITUTIONAL DATA / OBJECTIVE: Vital Signs (Most Recent): Pulse: 55 (02/03/25599) BP: 106/53 (02/03/25599) Resp: 14 (02/03/25599) Temp: 36 °C (96.8 °F) (02/03/25 0400) SpO2: 93 % (02/03/25599) Vital Signs (Last 24 Hours): Pulse Av.7 Min: 54 Max: 76 No data recorded Most Recent Systolic BP Av.1 mmHg Min: 89 mmHg Max: 139 mmHg Most Recent Diastolic BP Av.2 mmHg Min: 48 mmHg Max: 92 mmHg Resp Av.8 Min: 7 Max: 19 Most Recent Temperature Av.5 C Min: 36 C Max: 36.72 C SpO2 Av.6 % Min: 91 % Max: 97 % Ventilatory Support: HFNC: CPAP/EPAP: IPAP: Intake & Output Summary (Last 24 hours): Intake/Output Summary (Last 24 hours) at 02/03/2025 0637 Last data filed at 02/03/2025 0300 Gross per 24 hour Intake 1280.2 ml Output -- Net 1280.2 ml Net IO Since Admission: -383.56 mL [01/31/25 0749] Height & Weight: Height: 165.1 cm (5' 5") (01/31/25399) Weight: 89.1 kg (196 lb 6.9 oz) (02/02/25399) Weight change: Body mass index is 32.69 kg/m². Physical Examination: Head: normocephalic / atraumatic Eyes: pupils 3 mm, bilaterally reactive to light, extraocular muscles intact ENT: oropharynx clear, moist mucous membranes, dentures in place Neck: supple, non-tender, trachea midline Respiratory: clear to auscultation bilaterally Cardiovascular: regular rate and rhythm, palpable peripheral pulses present Abdomen: soft, non-tender, non-distended Back: no tenderness across thoracic / lumbar spine, no stepoffs or deformities Pelvis: non-tender, stable to anterior-posterior/lateral compression Rectal: deferred Genitourinary: normal female genitalia Musculoskeletal: no palpable long bone deformities, motor / sensation grossly intact, strength 5/5 in all extremities Skin: grossly intact; large hematoma to right hip, right eyebrow hematoma Neurologic: GCS 15 CATHETERS: none TUBES & DRAINS: none Peripheral Line Left;Lower Arm 20 Gauge (Active) Number of days: 4 Laboratory Values: reviewed. -- Brief labs below include the 7 most recent results over the past week. Blood Gas: No results in the last 7 days - inpatent use only Chemistry Panel: Lab results within last 7 days (see chart for full results) Units 02/02/25 0622 02/01/25 0634 01/31/25 0710 01/30/25 1709 SODIUM mmol/L 141 142 141 141 POTASSIUM mmol/L 4.2 3.8 3.7 4.7 CHLORIDE mmol/L 108* 107 107 105 CO2 mmol/L 24 24 24 23 EGFR mL/min 64 65 78 68 BUN mg/dL 23* 20 17 19 CREATININE mg/dL 0.9 0.9 0.8 0.9 GLUCOSE mg/dL 100 102 97 96 CALCIUM mg/dL 8.1* 8.2* 8.1* 8.6 Magnesium mg/dL 2.2 2.1 2.0 -- Phosphorus mg/dL 3.5 3.6 3.8 -- ANION GAP mmol/L 9 11 10 13 Complete Blood Count: Lab results within last 7 days (see chart for full results) Units 02/02/25 0622 02/01/25 1732 02/01/25 0634 01/31/25 0710 01/30/25 2317 01/30/25 1709 WBC K/uL 7.00 7.98 7.10 7.16 8.14 12.73* HGB g/dL 10.7* 11.0* 10.2* 11.0* 11.0* 12.5 HCT % 34.2* 34.7* 33.0* 35.9* 35.3* 40.4 PLT K/uL 190 212 169 181 197 262 MCV fL 90.7 89.2 90.9 90.7 89.8 90.8 Cardiac Studies: No results in the last 7 days - inpatent use only Coagulation Studies: Lab results within last 7 days (see chart for full results) Units 01/30/25 1709 Prothrombin Time seconds 13.1 INR 1.0 aPTT seconds 24 Liver Function Panel: Lab results within last 7 days (see chart for full results) Units 01/30/25 1709 AST U/L 28 Infectious Studies: Lab results within last 7 days (see chart for full results) Units 01/30/25 1709 Lactate mmol/L 1.3 Cultures: reviewed. Recent Cultures (2 Weeks) 01/31/2025 1:35 AM QUANT URINE CULTURE GROWTH No significant growth Radiographic Studies: reviewed. No imaging results in the last 72 hours Assessment & Plan Principal Problem: Multiple injuries due to trauma (POA: Yes) Active Problems: Hypothyroidism (POA: Yes) Restless leg syndrome (POA: Yes) Type 2 diabetes mellitus with hemoglobin A1c goal of less than 7.0% (HCC) (POA: Yes) Overview: Per Diabetes Taxonomy. ICD-10 update of inactive term Dyslipidemia, goal LDL below 100 (POA: Yes) Overview: Per Lipid Taxonomy. 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, recurrent severe without psychotic features (HCC) (POA: Yes) Essential (primary) hypertension (POA: Yes) Generalized anxiety disorder (POA: Yes) Fall (POA: Yes) Macular degeneration (POA: Yes) Laceration of brow without complication (POA: Yes) Overview: Right eye/brow laceration SAH (subarachnoid hemorrhage) (HCC) (POA: Yes) SDH (subdural hematoma) (HCC) (POA: Yes) Hematoma of right thigh (POA: Yes) Closed fracture of distal end of right radius (POA: Yes) Contusion of right knee (POA: Yes) Obesity (POA: Yes) Impaired mobility and ADLs (POA: Unknown) Gait abnormality (POA: Unknown) POA = Present On Admission NEUROLOGIC: Small parafalcine SDH Trace SAH NSGY consult Keppra 500 BID x7 days Hold Ap/Ac x14 days Ok for DVT chemo ppx and diet Will follow up outpatient in 2 weeks w/ rCTH Hx CVA Recurrent FLOREZ Start YEAST PUMPER gabapentin Hold YEAST PUMPER plavix MDD RACHEL RLS YEAST PUMPER Ativan 0.5 mg q8h PRN YEAST PUMPER wellbutrin XL 300 mg, prozac 40 mg, remeron Pain Control: Tylenol ATC Oxy 2.5/5 prn Current Pain Score: 0 (no pain) (02/03/25 0600) Delirium/Confusion Assessment: CAM-ICU Positive?: Yes (02/03/25 0400) Q4h neurochecks PULMONARY / RESPIRATORY: No acute concerns Satting well on RA RPDP, IS, flutter CARDIOVASCULAR: HTN Hold YEAST PUMPER lisinopril HLD YEAST PUMPER atorvastatin GASTROINTESTINAL / HEPATOBILIARY: No acute concerns Last Bowel Movement: 02/01/25 (02/01/251899) Stool Description: Large;Loose;Brown (02/01/251899) Bowel Regimen: senna, colace Stress Ulcer Prophylaxis: not indicated at this time. Diet / Nutrition: Reg diet w thin liquids RENAL / METABOLIC / FLUIDS: Urinary incontinence Straight cath protocol Voiding spontaneously Fluids off Serum creatinine: 0.9 mg/dL 02/02/25 0622 Estimated creatinine clearance: 56.8 mL/min INFECTIOUS DISEASES: No acute concerns UA negative ENDOCRINE: T2DM Hold YEAST PUMPER metformin Low dose SSI Glycemic Control: well contolled Most recent: Glucose (Bedside): 145 (02/02/252120) Last 24 hours: Glucose (Bedside) Av.5 Min: 85 Max: 162 Last 36 hours: Glucose (Bedside) Av.6 Min: 85 Max: 162 Last 48 hours: Glucose (Bedside) Av.1 Min: 85 Max: 162 Hypothyroidism YEAST PUMPER levoxyl HEMATOLOGIC: No acute concerns CBC daily VTE/DVT Prophylaxis: TY/SCD, SQH MUSCULOSKELETAL/ P.T / O.T. / MOBILITY: R minimally displaced intraarticular distal radius fx R knee contusion Ortho consult NWB JASWINDER discussed possible non op vs operative intervention pending right hip imaging - update: appears WNL Ice, elevate extremity to the level of the heart. No plan for urgent surgical intervention at this time OK to d/c from ortho perspective Will arrange ortho f/u Okay to use platform walker and weight bearing through shoulder with PT/OT Large right thigh hematoma Binder removed 01/31 Osteoporosis Rheumatology consult Follow up in [facility] within 6-8 weeks (we will facilitate) Check 25 oh vit d: 21 DXA scan (we will order) Considering stopping Fosamax and transitioning to Prolia (defer to follow up [facility] visit) Check PTH at follow up visit to rule out HPT given wrist fracture. Hold YEAST PUMPER fosamax YEAST PUMPER vitD3 PT/OT: [facility] 16 DERMATOLOGIC / WOUND CARE: No acute concerns Wound care PRN LINES / DRAINS / TUBES: LINES ALL Duration Peripheral Line Left;Lower Arm 20 Gauge 3 days List of consulted services: ADULT/PEDS ORTHOPAEDICS CONSULT IP RHEUMATOLOGY CONSULT IP ADULT OCCUPATIONAL THERAPY CONSULT IP ADULT PHYSICAL THERAPY CONSULT IP ADULT SPEECH THERAPY CONSULT IP (ACUTE CARE REHAB) REHAB CONSULT IP GLOBAL ISSUES: Code Status: No Code Delirium/Confusion Assessment Method for ICU (CAM-ICU): CAM-ICU negative Chlorhexidine mouth rinse every twelve hours Central Line Necessity Reviewed: N/A Disposition: med/surg, dc today at 10am Patient was discussed with MD Leandro Salas MD PGY1 | Critical Care Cosigned by Amber Rebolledo MD at 02/03/2025 2:40 PM EDT Associated attestation - Amber Rebolledo MD - 02/03/2025 2:40 PM EDT I saw and evaluated the patient today. I have reviewed the resident/fellow physician note and agreewith the following changes. Mechanism: fall from standing Injury complex/active problems: Principal Problem: Multiple injuries due to trauma (POA: Yes) Active Problems: Hypothyroidism (POA: Yes) Restless leg syndrome (POA: Yes) Type 2 diabetes mellitus with hemoglobin A1c goal of less than 7.0% (HCC) (POA: Yes) Overview: Per Diabetes Taxonomy. ICD-10 update of inactive term Dyslipidemia, goal LDL below 100 (POA: Yes) Overview: Per Lipid Taxonomy. 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, recurrent severe without psychotic features (HCC) (POA: Yes) Essential (primary) hypertension (POA: Yes) Generalized anxiety disorder (POA: Yes) Fall (POA: Yes) Macular degeneration (POA: Yes) Laceration of brow without complication (POA: Yes) Overview: Right eye/brow laceration SAH (subarachnoid hemorrhage) (HCC) (POA: Yes) SDH (subdural hematoma) (HCC) (POA: Yes) Hematoma of right thigh (POA: Yes) Closed fracture of distal end of right radius (POA: Yes) Contusion of right knee (POA: Yes) Obesity (POA: Yes) Impaired mobility and ADLs (POA: Unknown) Gait abnormality (POA: Unknown) POA = Present On Admission Procedures: none 24 hour events: got 500cc overnight for mild hypotension. Responded appropriately. Pain well controlled this morning. Up to chair. Neurological: SDH SAH Hx/o stroke - neurosurgery consulted -repeat head CT 6 hours after first-> stable -keppra x 7 days per protocol -HOB >30 degrees -q4hr neuro checks -hold YEAST PUMPER plavix MDD, RACHEL -mining captain prozac, wellbutrin, remeron, ativan Pain control: -mining captain gabapentin (pt on for recurrent headaches after stroke) -tylenol -prn oxy, soma Respiratory: No acute issues -encourage pulmonary toilet. Cardiovascular: HTN -holding mining captain lisinopril. Has not been hypertensive. Can be restarted as outpt at discretion of PCP. HLD -mining captain statin Gastrointestinal: No acute issues GI ppx: n/a Diet: regular diet Bowel regimen: senna, colace and LBM: mining captain Infectious Disease: No acute issues Renal - Metabolic: No acute issues Endocrine: DM2 -hold mining captain metformin -low dose SSI Hypothyroid -mining captain levoxyl Hematology: Acute blood loss anemia - trend CBC q daily - blood conservation consult if hgb <10 - transfuse for Hgb <7 DVT ppx: SQH, SCDs, Teds Musculoskeletal: Right thigh/lateral hip hematoma Acute blood loss anemia -binder removed. - trend CBC q daily - blood conservation consult if hgb <10 - transfuse for Hgb <7 Right intraarticular distal radius fracture -ortho following -currently in splint. Nonweight bearing -no plans for operative intervention currently. Osteoporosis -hold mining captain fosamax -mining captain vitamin D. -HiROC consulted. Lines: Peripheral Line Left;Lower Arm 20 Gauge (Active) Number of days: 4 Level of care: med surg Disposition: d/c [facility] Discharge time: 35 minutes Amber Rebolledo MD * LesamHodan MD - 02/02/2025 12:08 PM EDT Physical Medicine & Rehabilitation [facility] [place] [phone] Name: Allie Diaz Location: [place] [address]/ Date: 02/02/2025 Time: 12:08 PM Consulting Service: PM&R Reason for Consultation: Disposition Admission Date: 01/30/2025 Attending Physician/Provider: Amber Rebolledo MD Primary Care Physician/Provider: Janice Freeman PA-C Admitting Diagnosis: Principal Problem: Multiple injuries due to trauma Active Problems: Hypothyroidism Restless leg syndrome Type 2 diabetes mellitus with hemoglobin A1c goal of less than 7.0% (HCC) Dyslipidemia, goal LDL below 100 History of CVA (cerebrovascular accident) 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 * Subjective HPI: Allie Diaz is a 79 year old female who was admitted to [facility] [place] on 01/30/25 after falling and hittingher head. Pt found to have multiple injuries including: SDH, SAH, right thigh hematoma, R distal radius fx, R knee contusion, multiple R rib fx. Pt was seen by neurosurgery and ortho. No acute surgical intervention. Pt is NWB in the RUE. Pt was seen by therapy yesterday and walked 3' min A with RW.She is Jose Eduardo with most tasks. Pt reports some R wrist and leg pain. Pt reports some FLOREZ but denies any dizziness, numbness/tinglng. Pt denies any CP, SOB, NV, FC. 02/02 - The patient denies dizziness. Participated well with therapy and is a good candidate for IRF. Denied earlier due to updated therapy notes not in. Updated therapy notes are in, resubmit for authorization. No difficulties with eating, sleeping, bowel, or bladder. PREVIOUS FUNCTIONAL STATUS: Prior Level of Function Reported by: Patient (01/31/25957) Ambulation: Ambulatory without device (01/31/25957) Grooming: Independent (01/31/25957) Bathing: Independent (01/31/25957) Dressing: Independent (01/31/25957) Feeding: Independent (01/31/25957) Toileting: Independent (01/31/25957) Meal Prep: Independent (01/31/25957) Homemaking: Independent (01/31/25957) Shopping: Independent (01/31/25957) Medication Management: Independent (01/31/25957) Money Management: Independent (01/31/25957) Driving: Yes (01/31/25957) Durable Medical Equipment at home: No device (01/31/25957) Home Set-up and Support System: Lives with: Alone (01/31/25957) Assistance available: Yes (limited. Sister lives 15 minutes away) (01/31/25957) Dwelling type: Apartment (01/31/25957) Entry steps: 1 (01/31/25957) Inside steps: Elevator (01/31/25957) Bedroom location: 1st floor (01/31/25957) Bath location: 1st floor shower (01/31/25957) Assistive Devices Used: Devices at home: No device (01/31/25956) Recent Physical Therapy Assessment: P.T. Bed Mobility Supine-Sit: Supervision (with HOB elevated and verbal cues to maintain NWB RUE) (01/31/25956) Transfers Sit-Stand: Minimal Assistance (x 1-2 with cues) (02/02/25942) Stand-Sit: Minimal Assistance (with cues) (02/02/25942) W/C-Bed/Mat: Minimal Assistance (with Right Platform Rolling Walker) (02/02/25942) Recent Occupational Therapy Assessments: Self Care Feeding: Supervision (Please comment) (setup) (01/31/25957) Grooming: Supervision (Please comment) (brush hair) (02/02/25947) Toileting: Moderate Assistance (d/t balance) (02/02/25947) Dressing Upper Body: Supervision (Please comment) (don/doff gown) (02/02/25947) Lower Body: Maximal Assistance (don/doff socks d/t balance) (02/02/25947) Functional Ambulation Assistive Device: Other - Describe (R platform walker) (02/02/25947) Distance in feet:: 3 (01/31/25957) Level of Assistance: Minimal Assistance (02/02/25947) Bed Mobility Supine-Sit: Supervision (Please comment) (01/31/25957) OT Transfers Sit-Stand: Minimal Assistance (02/02/25947) Stand-Sit: Minimal Assistance (02/02/25947) Bed-Chair: Minimal Assistance (01/31/25957) Toilet: Minimal Assistance (x2) (02/02/25947) CURRENT LEVEL OF FUNCTION: Weight Bearing Status: Weight bearing through elbow;RUE (02/02/25942) Bed Mobility: Bed Mobility Supine-Sit: Supervision (Please comment) (01/31/25957) Transfer: OT Transfers Sit-Stand: Minimal Assistance (02/02/25947) Stand-Sit: Minimal Assistance (02/02/25947) Bed-Chair: Minimal Assistance (01/31/25957) Toilet: Minimal Assistance (x2) (02/02/25947) Ambulation: Functional Ambulation Assistive Device: Other - Describe (R platform walker) (02/02/25947) Distance in feet:: 3 (01/31/25957) Level of Assistance: Minimal Assistance (02/02/25947) Past Medical History: Diagnosis Date Benign neoplasm [...] 12/18/2005 hyperplastic 3 mm polyp, Dr Tinoco, [facility], repeat 2008 DEXA SCAN/BONE MINERAL AXIAL 2002 ok repeat in 2006 DIABETIC EYE EXAM 08/02/2012 no diabetic retinopathy FLEX SIG, GI REFERRAL OP 04/05/1999 polyps; diverticulitis INFORMATION labor and del x 3 INJECTION OF EYE DRUG Right 03/26/2017 # 1 Eylea OD, Dr. Reynoso INJECTION OF EYE DRUG Right 04/29/2017 # 2 Eylea OD, INJECTION OF EYE DRUG Right 07/23/2017 # 3 Eylea OD, Dr. Reynoso INJECTION OF EYE DRUG Right 08/26/2017 # 4 Eylea OD, INJECTION OF EYE DRUG Right 10/22/2017 # 5 Eylea OD, Dr. Reynoso INJECTION OF EYE DRUG Right 12/24/2017 # 6 Eylea OD, INJECTION OF EYE DRUG Right 01/27/2018 # 7 Eylea OD, Dr. Reynoso INJECTION OF EYE DRUG Right 03/04/2018 # 8 Eylea OD, Dr. Reynoso INJECTION OF EYE DRUG Right 04/07/2018 # 9 Eylea OD, Dr. Reynoso INJECTION OF EYE DRUG Right 05/13/2018 # 10 Eylea OD, INJECTION OF EYE DRUG Right 06/23/2018 # 11 Eylea OD, Dr. Reynoso INJECTION OF EYE DRUG Right 08/25/2018 # 12 Eylea OD, INJECTION OF EYE DRUG Right 10/27/2018 # 13 Eylea OD, Dr. Reynoso INJECTION OF EYE DRUG Right 12/30/2018 # 14 Eylea OD, INJECTION OF EYE DRUG Right 02/23/2019 # 15 Eylea OD, Dr. Reynoso INJECTION OF EYE DRUG Right 04/20/2019 # 16 Eylea OD, INJECTION OF EYE DRUG Right 06/15/2019 # 17 Eylea OD, Dr. Reynoso INJECTION OF EYE DRUG Right 08/10/2019 # 1 Lucentis 0.5mg OD, Dr. Reynoso INJECTION OF EYE DRUG Right 09/22/2019 #18 Eylea OD, INJECTION OF EYE DRUG Right 11/02/2019 # 19 Eylea OD, INJECTION OF EYE DRUG Right 12/14/2019 # 20 Eylea OD, Dr. Reynoso INJECTION OF EYE DRUG Right 02/08/2020 # 21 Eylea OD, Dr. Reynoso INJECTION OF EYE DRUG Right 03/28/2020 # 22 Eylea OD, Dr. Reynoso INJECTION OF EYE DRUG Right 05/09/2020 # 23 Eylea OD, Dr. Reynoso INJECTION OF EYE DRUG Right 06/15/2020 # 24 Eylea OD, INJECTION OF EYE DRUG Right 08/02/2020 # 25 Eylea OD, Dr. Reynoso INJECTION OF EYE DRUG Right 09/12/2020 # 26 Eylea OD, Dr. Reynoso INJECTION OF EYE DRUG Right 10/17/2020 # 27 Eylea OD, Dr. Reynoso INJECTION OF EYE DRUG Right 12/05/2020 # 28 Eylea OD, Dr. Reynoso INJECTION OF EYE DRUG Right 01/09/2021 # 29 Eylea OD, Dr. Reynoso INJECTION OF EYE DRUG Right 02/27/2021 # 30 Eylea OD, INJECTION OF EYE DRUG Right 04/18/2021 # 31 Eylea OD, INJECTION OF EYE DRUG Right 06/13/2021 #32 Eylea OD, Dr Reynoso INJECTION OF EYE DRUG Right 08/15/2021 # 33 Eylea OD, Dr. Reynoso INJECTION OF EYE DRUG Right 09/26/2021 # 34 Eylea OD, INJECTION OF EYE DRUG Right 11/11/2021 #[address]ylea [address] Reynoso INJECTION OF EYE DRUG Right 12/25/2021 # 36 Eylea OD, Dr. Reynoso INJECTION OF EYE DRUG Right 02/06/2022 # 37 Eylea OD, Dr. Reynoso INJECTION OF EYE DRUG Right 03/27/2022 # 38 Eylea OD, Dr. Reynoso INJECTION OF EYE DRUG Right 05/16/2022 # 39 Eylea OD, Dr. Reynoso INJECTION OF EYE DRUG Right 07/25/2022 # 40 Eylea OD, Dr. Reynoso INJECTION OF EYE DRUG Right 09/05/2022 # 41 Eylea OD, Dr. Reynoso INJECTION OF EYE DRUG Right 10/24/2022 # 42 Eylea OD, Dr. Reynoso INJECTION OF EYE DRUG Right 12/11/2022 #43 EYLEA OD; DR REYNOSO INJECTION OF EYE DRUG Right 01/29/2023 # 44 Eylea OD, Dr. Reynoso INJECTION OF EYE DRUG Right 03/26/2023 # 45 Eylea OD, Dr. Reynoso INJECTION OF EYE DRUG Right 05/26/2023 # 46 Eylea OD, Dr. Reynoso INJECTION OF EYE DRUG Right 08/04/2023 #47 Eylea OD; Dr Reynoso INJECTION OF EYE DRUG Right 09/29/2023 #48 Eylea OD, Dr. Reynoso INJECTION OF EYE DRUG Right 12/11/2023 # 49 Eyela OD, Dr. Reynoso INJECTION OF EYE DRUG Right 02/09/2024 # 50 Eylea OD, Dr. Reynoso INJECTION OF EYE DRUG Right 04/19/2024 # 51 Eylea OD, Dr. Reynoso INJECTION OF EYE DRUG Right 06/16/2024 #52 Eylea OD, Dr. Reynoso INJECTION OF EYE DRUG Right 08/16/2024 #53 Eylea OD, Dr. Reynoso INJECTION OF EYE DRUG Right 10/21/2024 #54 Eylea OD, Dr. Reynoso INJECTION OF EYE DRUG Right 12/16/2024 # 55 Eylea OD, Dr. Reynoso LIGATE/CUT OVIDUCT(S) 1974 MAMMOGRAM - BILATERAL 01/07/2005 birad 2 MAMMOGRAM - BILATERAL 06/23/2008 birad code 2 MAMMOGRAM SCREENING-BILATERAL 01/04/2004 bengin findings, yearly mammograms appropriate, birad code 2 MISCELLANEOUS ORDER ([facility] ONLY) Right 03/26/2017-03/26/2018 EYLEA OD CONSENT SIGNED, Dr. Reynoso MISCELLANEOUS ORDER ([facility] ONLY) Right 04/07/2018-04/07/2019 Eylea OD consent signed, Dr. Reynoso MISCELLANEOUS ORDER ([facility] ONLY) ACT 112 SIGNED, Dr. Reynoso (12-30-2018) MISCELLANEOUS ORDER ([facility] ONLY) Right 04/20/2019-04/20/2020 Eylea OD consent signed, MISCELLANEOUS ORDER ([facility] ONLY) Right 08/10/2019-08/10/2020 LUCENTIS 0.5MG CONSENT OD SIGNED; DR REYNOSO MISCELLANEOUS ORDER ([facility] ONLY) Right 05/09/2020-05/09/2021 Eylea OD consent signed, OTHER Eylea OD Consent signed 06/13/2021-06/13/22 OTHER (INFORMATION) EYLEA OU CONSENT SIGNED Dr. Reynoso/Cristóbal (exp 07-25-23) OTHER (INFORMATION) CONSENT OU EYLEA exp 08/04/24; Dr Reynoso OTHER (INFORMATION) Eylea OU consent Dr. Reynoso/Cristóbal expires 08/16/2025 REMOVAL OF THYROID LESION 1999 REMOVE CATARACT, INSERT LENS PROSTH Right 02/02/2017 right EXTRACAPSULAR CATARACT REMOVAL WITH INTRAOCULAR LENS performed by Gabriel Acosta MD at OR [facility] REMOVE CATARACT, INSERT LENS PROSTH Left 02/09/2017 left EXTRACAPSULAR CATARACT REMOVAL WITH INTRAOCULAR LENS performed by Gabriel Acosta MD at OR [facility] Social History Tobacco Use Smoking status: Never Smokeless tobacco: Never Vaping Use Vaping status: Never Used Substance Use Topics Alcohol use: Not Currently Comment: rare Drug use: No Family History Problem Relation Name Age of Onset Eye Problems Father AMD Eye Problems Sister AMD Cancer Father lung Diabetes Father niddm Diabetes Mother iddm Diabetes Sister iddm Cancer Sister uterine ca Heart Disorder Sister Heart Disorder Mother chf Gastro-intestinal disorder Sister diverticulitis Heart Disorder Son fatal PR at age 49 No Past Hx Son Glaucoma Other Denies family hx Breast Cancer Grandmother (Maternal) Review of patient's allergies indicates: Allergen Reactions Sertraline Hcl Leg pain Simvastatin Muscle pain Sulfa Antibiotics rash Current Facility-Administered Medications Medication Dose Route Frequency Provider atorvaSTATin (Lipitor) tab 40 mg 40 mg Oral Daily(AM) Jayy Brock DO buPROPion extended release (SR) (Wellbutrin SR) tab 150 mg 150 mg Oral BID(AM/PM) Jayy Brock DO dextrose 50% inj 25 mL 25 mL IV Push PRN Jayy Brock DO dextrose 50% inj 50 mL 50 mL IV Push PRN Jayy Brock DO FLUoxetine (PROzac) cap 40 mg 40 mg Oral Daily(AM) Jayy Brock DO Gabapentin (Neurontin) cap 300 mg 300 mg Oral HS Jayy Brock DO glucagon (Glucagen) inj 1 mg 1 mg Intramuscular PRN Jayy Brock DO Glucose (Glutose 15) 40 % gel 15 g of glucose 15 g of glucose Oral PRN Jayy Brock DO Glucose (Glutose 15) 40 % gel 30 g of glucose 30 g of glucose Oral PRN Jayy Brock DO glucose chew tab 16 g 16 g Oral PRN Jayy Brock DO hEParin inj 5,000 Units 5,000 Units Subcutaneous Q8H Joanie Zamora DO insulin aspart (NovoLOG) inj Subcutaneous With Meals and HS Jayy Brock DO levETIRAcetam (Keppra) tab 500 mg 500 mg Oral BID(AM/PM) Joanie Zamora, Levothyroxine Sodium (Levoxyl) tab 125 mcg 125 mcg Oral Daily 0630 Jayy Brock, LORAzepam (Ativan) tab 0.5 mg 0.5 mg Oral Q8H PRN Jayy Brock, Mirtazapine (Remeron) tab 15 mg 15 mg Oral HS Jayy Brock, Acetaminophen (Tylenol) tab 975 mg 975 mg Oral Q8H Juliana Farrell CRNP chlorhexidine gluconate cloth 2 % pad External Daily 1000 Juliana Farrell CRNP Docusate Sodium (Colace) cap 100 mg 100 mg Oral BID(AM/PM) Juliana Farrell CRNP ondansetron ODT (Zofran) tab 4 mg 4 mg On Tongue Q6H PRN Juliana Farrell CRNP Or ondansetron (Zofran) inj 4 mg 4 mg IV Push Q6H PRN Juliana Farrell CRNP oxyCODONE (Oxy IR) tab 5 mg 5 mg Oral Q4H PRN Juliana Farrell CRNP oxyCODONE (Roxicodone) oral syrup 2.5 mg 2.5 mg Oral Q4H PRN Juliana Farrell CRNP senna (Senokot) 2 Tablet 2 Tablet Oral BID(AM/PM) Juliana Farrell CRNP Objective PHYSICAL EXAM: BP: 139 mmHg/60 mmHg (02/02/25 1000) Pulse: 71 (02/02/25 1000) Resp: 16 (02/02/25 1000) Temp: 36.61 C (02/02/25 0800) Temp Summary: Temp Min: 36.3 °C (97.3 °F) Max: 36.9 °C (98.4 °F) SpO2: 96 % (02/02/25 1000) O2 flow rate: Supplemental O2 Delivery: Room Air, None (02/02/25 1000) Vital Signs Last 24 Hours: BP Min: 96/61 Max: 139/60 Pulse Av.3 Min: 56 Max: 79 Most Recent Temperature Av.5 C Min: 36.28 C Max: 36.89 C Resp Av.4 Min: 13 Max: 21 General: NAD; resting comfortably Respiratory: non-labored breathing on room room air Skin: warm and dry : No Melton catheter present Psychiatric: appropriate mood MSK/Extremities: no edema Neurologic: 1/3 in delayed recall; Mental Status & Orientation: awake, Aox2 (person and place) Cranial Nerves: CN 2-12 grossly intact Motor: RUE strength not tested but NVI Strength is 4/5 in the LUE Strength is 4/5 in the BLE Muscle Tone: normal Sensory: intact to light touch DATA REVIEW: LABS: Recent Results (from the past 24 hours) CBC Collection Time: 02/01/25 5:32 PM Result Value Ref Range WBC 7.98 4.00 - 10.80 K/uL RBC 3.89 3.85 - 5.15 M/uL HGB 11.0 (L) 12.0 - 15.3 g/dL HCT 34.7 (L) 36.0 - 45.2 % MCV 89.2 81.5 - 97.5 fL MCH 28.3 27.0 - 34.0 pg MCHC 31.7 32.0 - 36.0 g/dL RDW 14.4 11.5 - 15.5 % PLT 212 140 - 400 K/uL MPV 9.8 6.6 - 11.1 fL nRBCs 0 <=0 /100 WBCs GLUCOSE METER, POINT OF CARE Collection Time: 02/01/25 5:40 PM Result Value Ref Range Glucose - POCT 138 (H) 70 - 120 mg/dL GLUCOSE METER, POINT OF CARE Collection Time: 02/01/25 9:06 PM Result Value Ref Range Glucose - POCT 96 70 - 120 mg/dL BASIC METABOLIC PANEL Collection Time: 02/02/25 6:22 AM Result Value Ref Range BUN 23 (H) 6 - 20 mg/dL CREATININE 0.9 0.5 - 1.0 mg/dL EGFR 64 >=60 mL/min SODIUM 141 135 - 146 mmol/L POTASSIUM 4.2 3.5 - 5.1 mmol/L CHLORIDE 108 (H) 98 - 107 mmol/L CO2 24 22 - 32 mmol/L ANION GAP 9 7 - 15 mmol/L GLUCOSE 100 70 - 120 mg/dL CALCIUM 8.1 (L) 8.4 - 10.2 mg/dL MAGNESIUM Collection Time: 02/02/25 6:22 AM Result Value Ref Range Magnesium 2.2 1.5 - 2.6 mg/dL PHOSPHORUS Collection Time: 02/02/25 6:22 AM Result Value Ref Range Phosphorus 3.5 2.5 - 4.8 mg/dL CBC Collection Time: 02/02/25 6:22 AM Result Value Ref Range WBC 7.00 4.00 - 10.80 K/uL RBC 3.77 3.85 - 5.15 M/uL HGB 10.7 (L) 12.0 - 15.3 g/dL HCT 34.2 (L) 36.0 - 45.2 % MCV 90.7 81.5 - 97.5 fL MCH 28.4 27.0 - 34.0 pg MCHC 31.3 32.0 - 36.0 g/dL RDW 14.4 11.5 - 15.5 % PLT 190 140 - 400 K/uL MPV 9.6 6.6 - 11.1 fL nRBCs 0 <=0 /100 WBCs GLUCOSE METER, POINT OF CARE Collection Time: 02/02/25 7:52 AM Result Value Ref Range Glucose - POCT 85 70 - 120 mg/dL GLUCOSE METER, POINT OF CARE Collection Time: 02/02/25 11:12 AM Result Value Ref Range Glucose - POCT 162 (H) 70 - 120 mg/dL ASSESSMENT: Principal Problem: Multiple injuries due to trauma (POA: Yes) Active Problems: Hypothyroidism (POA: Yes) Restless leg syndrome (POA: Yes) Type 2 diabetes mellitus with hemoglobin A1c goal of less than 7.0% (HCC) (POA: Yes) Overview: Per Diabetes Taxonomy. ICD-10 update of inactive term Dyslipidemia, goal LDL below 100 (POA: Yes) Overview: Per Lipid Taxonomy. 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, recurrent severe without psychotic features (HCC) (POA: Yes) Essential (primary) hypertension (POA: Yes) Generalized anxiety disorder (POA: Yes) Fall (POA: Yes) Macular degeneration (POA: Yes) Laceration of brow without complication (POA: Yes) Overview: Right eye/brow laceration SAH (subarachnoid hemorrhage) (HCC) (POA: Yes) SDH (subdural hematoma) (HCC) (POA: Yes) Hematoma of right thigh (POA: Yes) Closed fracture of distal end of right radius (POA: Yes) Contusion of right knee (POA: Yes) Obesity (POA: Yes) Impaired mobility and ADLs (POA: Unknown) Gait abnormality (POA: Unknown) POA = Present On Admission Allie Diaz is a(n) 79 year old female PMHx stroke, mild vascular neurocognitive disorder, HTN, HLD, BPPV, uterine fibroid, leiomyoma, DM2, hypothyroidism, cataracts, macular degeneration, osteoporosis, RLS, RACHEL who presents with mobility and ADL deficits secondary to TBI and wrist fx after fall PLAN: Disposition recommendation: IRF - pt's symptoms improving she will be able to participate and tolerate 3hrs of therapy in an acute rehab setting. Therapy notes updated showing tolerability Medical Complexity: Patient does require physician oversight at least 3 times per week, including, but not limited to: Neuro checks due to ICH and confusion Electrolyte abnormalities requiring frequent labs Bowel and bladder management Pain management DVT prophylaxis Wound care Patient does require 24/7 registered nursing care. Patient does require at least 2 therapeutic disciplines of PT, OT, and/or [employer] services for at least3 hours per day, 5 days per week in order to maximize functional independence in the safest manner. Patient is expected to achieve individualized functional improvement goals within the following reasonable timeframe - 2 weeks There is reasonable expectation patient will discharge to the community post- acute rehabilitation admission. Patient is expected to be able to follow commands, tolerate, actively & willingly participate at least 3 hours of therapy per day for at least 5 days per week in/upon improvement of their currentclinical condition. Patient's Insurance: Payor: [facility] / Plan: [facility] PREFERRED COMPLETE RX MP-QD / Product Type: *No Product type* / Please contact service via [employer] Role for further questions or concerns: PMRRESIDENTCONSULTS Cosigned by Gibran Amin MD at 02/02/2025 3:54 PM EDT Associated attestation - Gibran Amin MD - 02/02/2025 3:54 PM EDT I saw and evaluated the patient today. I have reviewed the resident/fellow physician note and agree. * Leandro Schmitt MD - 02/02/2025 11:07 AM EDT CCM - PROGRESS NOTE [facility] [place]-[address] [id number] Name: Allie Diaz Location: [facility] [place] [id number] Date: 02/02/2025 Date of admission: 01/30/2025 Hospital length of stay: 3 days Subjective PATIENT DESCRIPTION: Allie Diaz is a 79 yo on Plavix who was in the [employer] parking lot when she bent down to pick something up and fell. Unknown if there was LOC. Accident occurred around 11:00. She presented to [facility] where CT scans revealed an SAH and SDH and a large right hip hematoma with concern for active extravasation. There were also multiple healing right rib fractures (on our exam she did have tendernessand ecchymosis). She was transferred to [facility] [place] as a level 2 trauma alert. GCS 14 on arrival. INJURY COMPLEX: - Small parafalcine SDH - Scattered trace SAH - Large right thigh hematoma - Right intra-articular distal radius fracture - Right knee contusion - Multiple healing right rib fractures INTERIM HISTORY / SUBJECTIVE: Overnight: NAEO, AFVSS. This morning, patient evaluated at bedside. Upset and crying that her sister has not visited her but otherwise denies any complaints, pain is well controlled. Satting well on RA. Labs WNL, hgb stable. Objective CONSTITUTIONAL DATA / OBJECTIVE: Vital Signs (Most Recent): Pulse: 71 (02/02/25 1000) BP: 139/60 (02/02/25 1000) Resp: 16 (02/02/25 1000) Temp: 36.6 °C (97.9 °F) (02/02/25 0800) SpO2: 96 % (02/02/25 1000) Vital Signs (Last 24 Hours): Pulse Av.8 Min: 56 Max: 79 No data recorded Most Recent Systolic BP Av.3 mmHg Min: 96 mmHg Max: 139 mmHg Most Recent Diastolic BP Av.5 mmHg Min: 48 mmHg Max: 78 mmHg Resp Av.3 Min: 13 Max: 21 Most Recent Temperature Av.5 C Min: 36.28 C Max: 36.89 C SpO2 Av.9 % Min: 93 % Max: 97 % Ventilatory Support: HFNC: CPAP/EPAP: IPAP: Intake & Output Summary (Last 24 hours): Intake/Output Summary (Last 24 hours) at 02/02/2025 1107 Last data filed at 02/02/2025 0900 Gross per 24 hour Intake 570 ml Output 450 ml Net 120 ml Net IO Since Admission: -383.56 mL [01/31/25 0749] Height & Weight: Height: 165.1 cm (5' 5") (01/31/25399) Weight: 89.1 kg (196 lb 6.9 oz) (02/02/25399) Weight change: Body mass index is 32.69 kg/m². Physical Examination: Head: normocephalic / atraumatic Eyes: pupils 3 mm, bilaterally reactive to light, extraocular muscles intact ENT: oropharynx clear, moist mucous membranes, dentures in place Neck: supple, non-tender, trachea midline Respiratory: clear to auscultation bilaterally Cardiovascular: regular rate and rhythm, palpable peripheral pulses present Abdomen: soft, non-tender, non-distended Back: no tenderness across thoracic / lumbar spine, no stepoffs or deformities Pelvis: non-tender, stable to anterior-posterior/lateral compression Rectal: deferred Genitourinary: normal female genitalia Musculoskeletal: no palpable long bone deformities, motor / sensation grossly intact, strength 5/5 in all extremities Skin: grossly intact; large hematoma to right hip, right eyebrow hematoma Neurologic: GCS Adult: eyes open 4 = spontaneous, best verbal response 4 = disoriented, inappropriate, cries, best motor response 6 = obeys commands appropriate for age CATHETERS: none TUBES & DRAINS: none Peripheral Line Left;Lower Arm 20 Gauge (Active) Number of days: 3 Laboratory Values: reviewed. -- Brief labs below include the 7 most recent results over the past week. Blood Gas: No results in the last 7 days - inpatent use only Chemistry Panel: Lab results within last 7 days (see chart for full results) Units 02/02/25 0622 02/01/25 0634 01/31/25 0710 01/30/25 1709 SODIUM mmol/L 141 142 141 141 POTASSIUM mmol/L 4.2 3.8 3.7 4.7 CHLORIDE mmol/L 108* 107 107 105 CO2 mmol/L 24 24 24 23 EGFR mL/min 64 65 78 68 BUN mg/dL 23* 20 17 19 CREATININE mg/dL 0.9 0.9 0.8 0.9 GLUCOSE mg/dL 100 102 97 96 CALCIUM mg/dL 8.1* 8.2* 8.1* 8.6 Magnesium mg/dL 2.2 2.1 2.0 -- Phosphorus mg/dL 3.5 3.6 3.8 -- ANION GAP mmol/L 9 11 10 13 Complete Blood Count: Lab results within last 7 days (see chart for full results) Units 02/02/25 0622 02/01/25 1732 02/01/25 0634 01/31/25 0710 01/30/25 2317 01/30/25 1709 WBC K/uL 7.00 7.98 7.10 7.16 8.14 12.73* HGB g/dL 10.7* 11.0* 10.2* 11.0* 11.0* 12.5 HCT % 34.2* 34.7* 33.0* 35.9* 35.3* 40.4 PLT K/uL 190 212 169 181 197 262 MCV fL 90.7 89.2 90.9 90.7 89.8 90.8 Cardiac Studies: No results in the last 7 days - inpatent use only Coagulation Studies: Lab results within last 7 days (see chart for full results) Units 01/30/25 1709 Prothrombin Time seconds 13.1 INR 1.0 aPTT seconds 24 Liver Function Panel: Lab results within last 7 days (see chart for full results) Units 01/30/25 1709 AST U/L 28 Infectious Studies: Lab results within last 7 days (see chart for full results) Units 01/30/25 1709 Lactate mmol/L 1.3 Cultures: reviewed. Recent Cultures (2 Weeks) 01/31/2025 1:35 AM QUANT URINE CULTURE GROWTH No significant growth Radiographic Studies: reviewed. CT UPPER EXTREMITY RIGHT WO CONTRAST Result Date: 01/31/2025 IMPRESSION Distal radius intra-articular fracture. XR HIP UNILAT 2-3 VIEWS INCLUDING AP PELVIS Result Date: 01/31/2025 IMPRESSION 1. No acute fracture or dislocation. 2. Mild osteoarthritis of the right knee. XR FEMUR MINIMUM 2 VIEWS Result Date: 01/31/2025 IMPRESSION 1. No acute fracture or dislocation. 2. Mild osteoarthritis of the right knee. XR WRIST 3 OR MORE VIEWS Result Date: 01/31/2025 IMPRESSION Intra-articular distal right radius fracture in stable alignment status post splinting. CT HEAD/BRAIN WO CONTRAST Result Date: 01/31/2025 IMPRESSION Unchanged small volume subarachnoid hemorrhage along the right frontal lobe and small anterior parafalcine subdural hematoma. No evidence of new or progressive hemorrhage. I have personally reviewed this examination and agree with the resident/fellow physician's interpretation. XR FOREARM 2 VIEWS Result Date: 01/30/2025 IMPRESSION 1. Acute right intra-articular distal radius fracture. 2. Scapholunate interval appears mildly widened. Mild negative ulnar variance. XR WRIST 3 OR MORE VIEWS Result Date: 01/30/2025 IMPRESSION 1. Acute right intra-articular distal radius fracture. 2. Scapholunate interval appears mildly widened. Mild negative ulnar variance. XR HAND 3 OR MORE VIEWS Result Date: 01/30/2025 IMPRESSION 1. Acute right intra-articular distal radius fracture. 2. Scapholunate interval appears mildly widened. Mild negative ulnar variance. XR KNEE 1-2 VIEWS Result Date: 01/30/2025 IMPRESSION 1. Acute right intra-articular distal radius fracture. 2. Scapholunate interval appears mildly widened. Mild negative ulnar variance. XR ELBOW 3 OR MORE VIEWS Result Date: 01/30/2025 IMPRESSION 1. Acute right intra-articular distal radius fracture. 2. Scapholunate interval appears mildly widened. Mild negative ulnar variance. CTA HEAD/CTA NECK Result Date: 01/30/2025 IMPRESSION 1. Small acute parafalcine subdural hematoma has slightly increased in size, now measuring up to 3-4 mm in maximum thickness. 2. Similar scattered trace subarachnoid hemorrhage. 3. No new sites of intracranial hemorrhage or evidence of an acute territorial infarct. 4. No evidence of traumatic cerebrovascular injury. 5. Right periorbital facial contusion/laceration without associated calvarial fracture. 6. 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 7. Moderate stenosis of the right internal carotid artery supraclinoid segment and moderate or greater stenosis of the right posterior cerebral artery origin. Non flow-limiting atherosclerotic changes in the head/neck, as discussed. The above impression was communicated to Amanda Arechiga and LISE MERCHANT by the university president (Dr. Afua Suarez) via secure text message at 5:32 p.m. and 6:03 p.m., respectively on 01/30/2025. Understanding was expressed. I have personally reviewed this examination and agree with the resident/fellow physician's interpretation. XR CHEST 1 VIEW Result Date: 01/30/2025 IMPRESSION No acute traumatic findings. I have personally reviewed this examination and agree with the resident/fellow physician's interpretation. Assessment & Plan Principal Problem: Multiple injuries due to trauma (POA: Yes) Active Problems: Hypothyroidism (POA: Yes) Restless leg syndrome (POA: Yes) Type 2 diabetes mellitus with hemoglobin A1c goal of less than 7.0% (HCC) (POA: Yes) Overview: Per Diabetes Taxonomy. ICD-10 update of inactive term Dyslipidemia, goal LDL below 100 (POA: Yes) Overview: Per Lipid Taxonomy. 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, recurrent severe without psychotic features (HCC) (POA: Yes) Essential (primary) hypertension (POA: Yes) Generalized anxiety disorder (POA: Yes) Fall (POA: Yes) Macular degeneration (POA: Yes) Laceration of brow without complication (POA: Yes) Overview: Right eye/brow laceration SAH (subarachnoid hemorrhage) (HCC) (POA: Yes) SDH (subdural hematoma) (HCC) (POA: Yes) Hematoma of right thigh (POA: Yes) Closed fracture of distal end of right radius (POA: Yes) Contusion of right knee (POA: Yes) Obesity (POA: Yes) Impaired mobility and ADLs (POA: Unknown) Gait abnormality (POA: Unknown) POA = Present On Admission NEUROLOGIC: Small parafalcine SDH Trace SAH NSGY consult Keppra 500 BID x7 days Hold Ap/Ac x14 days Ok for DVT chemo ppx and diet Will follow up outpatient in 2 weeks w/ rCTH Hx CVA Recurrent FLOREZ Start YEAST PUMPER gabapentin Hold YEAST PUMPER plavix MDD RACHEL RLS YEAST PUMPER Ativan 0.5 mg q8h PRN YEAST PUMPER wellbutrin XL 300 mg, prozac 40 mg, remeron Pain Control: Tylenol ATC Oxy 2.5/5 prn Current Pain Score: 0 (no pain) (02/02/25 1000) Delirium/Confusion Assessment: CAM-ICU Positive?: Yes (02/02/25 0400) Q4h neurochecks PULMONARY / RESPIRATORY: No acute concerns Satting well on RA RPDP, IS, flutter CARDIOVASCULAR: HTN Hold YEAST PUMPER lisinopril HLD YEAST PUMPER atorvastatin GASTROINTESTINAL / HEPATOBILIARY: No acute concerns Last Bowel Movement: 02/01/25 (02/01/251899) Stool Description: Large;Loose;Brown (02/01/251899) Bowel Regimen: senna, colace Stress Ulcer Prophylaxis: not indicated at this time. Diet / Nutrition: Reg diet w thin liquids RENAL / METABOLIC / FLUIDS: Urinary incontinence Straight cath protocol Voiding spontaneously Fluids off Serum creatinine: 0.9 mg/dL 02/02/25 0622 Estimated creatinine clearance: 56.8 mL/min INFECTIOUS DISEASES: No acute concerns UA negative ENDOCRINE: T2DM Hold YEAST PUMPER metformin Low dose SSI Glycemic Control: well contolled Most recent: Glucose (Bedside): 85 (02/02/25 0745) Last 24 hours: Glucose (Bedside) Av.8 Min: 85 Max: 138 Last 36 hours: Glucose (Bedside) Av Min: 85 Max: 138 Last 48 hours: Glucose (Bedside) Av.6 Min: 85 Max: 158 Hypothyroidism YEAST PUMPER levoxyl HEMATOLOGIC: No acute concerns CBC daily VTE/DVT Prophylaxis: TY/SCD, SQH MUSCULOSKELETAL/ P.T / O.T. / MOBILITY: R minimally displaced intraarticular distal radius fx R knee contusion Ortho consult NWB JASWINDER discussed possible non op vs operative intervention pending right hip imaging - update: appears WNL Ice, elevate extremity to the level of the heart. No plan for urgent surgical intervention at this time OK to d/c from ortho perspective Will arrange ortho f/u Okay to use platform walker and weight bearing through shoulder with PT/OT Large right thigh hematoma Binder 01/31 Osteoporosis [facility] will [facility]) Check 25 oh vit d: 21 DXA scan (we will order) Considering stopping Fosamax and transitioning to Prolia (defer to follow up HiROC visit) Check PTH at follow up visit to rule out HPT given wrist fracture. Hold YEAST PUMPER fosamax YEAST PUMPER vitD3 PT/OT: [facility] 16 DERMATOLOGIC / WOUND CARE: No acute concerns Wound care PRN LINES / DRAINS / TUBES: LINES ALL Duration Peripheral Line Left;Lower Arm 20 Gauge 2 days List of consulted services: ADULT/PEDS ORTHOPAEDICS CONSULT IP RHEUMATOLOGY CONSULT IP ADULT OCCUPATIONAL THERAPY CONSULT IP ADULT PHYSICAL THERAPY CONSULT IP ADULT SPEECH THERAPY CONSULT IP (ACUTE CARE REHAB) REHAB CONSULT IP GLOBAL ISSUES: Code Status: No Code Delirium/Confusion Assessment Method for ICU (CAM-ICU): CAM-ICU negative Chlorhexidine mouth rinse every twelve hours Central Line Necessity Reviewed: N/A Disposition: med/surg Patient was discussed with MD Leandro Salas MD PGY1 | Critical Care Cosigned by Amber Rebolledo MD at 02/03/2025 2:38 PM EDT Associated attestation - Amber Rebolledo MD - 02/03/2025 2:38 PM EDT This is a late entry. I saw and evaluated the patient 02/02/25. I have reviewed the resident/fellow physician note and agree with the following changes. Mechanism: fall from standing Injury complex/active problems: Principal Problem: Multiple injuries due to trauma (POA: Yes) Active Problems: Hypothyroidism (POA: Yes) Restless leg syndrome (POA: Yes) Type 2 diabetes mellitus with hemoglobin A1c goal of less than 7.0% (HCC) (POA: Yes) Overview: Per Diabetes Taxonomy. ICD-10 update of inactive term Dyslipidemia, goal LDL below 100 (POA: Yes) Overview: Per Lipid Taxonomy. 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, recurrent severe without psychotic features (HCC) (POA: Yes) Essential (primary) hypertension (POA: Yes) Generalized anxiety disorder (POA: Yes) Fall (POA: Yes) Macular degeneration (POA: Yes) Laceration of brow without complication (POA: Yes) Overview: Right eye/brow laceration SAH (subarachnoid hemorrhage) (HCC) (POA: Yes) SDH (subdural hematoma) (HCC) (POA: Yes) Hematoma of right thigh (POA: Yes) Closed fracture of distal end of right radius (POA: Yes) Contusion of right knee (POA: Yes) Obesity (POA: Yes) Impaired mobility and ADLs (POA: Unknown) Gait abnormality (POA: Unknown) POA = Present On Admission Procedures: none 24 hour events: confusion has improved. Somewhat upset about her sister not visiting. Neurological: SDH SAH Hx/o stroke - neurosurgery consulted -repeat head CT 6 hours after first-> stable -keppra x 7 days per protocol -HOB >30 degrees -q4hr neuro checks -hold YEAST PUMPER plavix MDD, RACHEL -mining captain prozac, wellbutrin, remeron, ativan Pain control: -mining captain gabapentin (pt on for recurrent headaches after stroke) -tylenol -prn oxy, soma Respiratory: No acute issues -encourage pulmonary toilet. Cardiovascular: HTN -holding mining captain lisinopril. Has not been hypertensive. HLD -mining captain statin Gastrointestinal: No acute issues GI ppx: n/a Diet: cleared by [employer] for regular diet Bowel regimen: senna, colace and LBM: mining captain Infectious Disease: No acute issues Renal - Metabolic: No acute issues Endocrine: DM2 -hold mining captain metformin -low dose SSI Hypothyroid -mining captain levoxyl Hematology: Acute blood loss anemia - trend CBC q daily - blood conservation consult if hgb <10 - transfuse for Hgb <7 DVT ppx: SQH, SCDs, Teds Musculoskeletal: Right thigh/lateral hip hematoma Acute blood loss anemia -binder removed. - trend CBC q daily - blood conservation consult if hgb <10 - transfuse for Hgb <7 Right intraarticular distal radius fracture -ortho following -currently in splint. Nonweight bearing -no plans for operative intervention currently. Osteoporosis -hold mining captain fosamax -mining captain vitamin D. -HiROC consulted. Lines: Peripheral Line Left;Lower Arm 20 Gauge (Active) Number of days: 3 Level of care: med surg Disposition: med surg, possible d/c today if authorization approved. I have provided critical care diagnostic services for neurologic failure and therapeutic services with neurological monitoring and treatment for this patient on the date referenced above. Time devoted to patient care services described in this note equal: 45 minutes total critical care time exclusive of time spent performing procedures or time spent by another provider or resident. I have personally provided 45 minutes of critical care time exclusive of time spent on separately billable procedures. Time includes review of laboratory data, radiology results and monitoring for potential decompensation. Interventions were performed as documented above. Upon my evaluation, this patient had a high probability of imminent or life- threatening deterioration due to SDH, SAH, which required my direct attention, intervention, and personal management. Amber Rebolledo MD * Leandro Schmitt MD - 02/01/2025 9:06 AM EDT CCM - PROGRESS NOTE [facility] [place] [id number] Name: Allie Diaz Location: [facility] [place] G503/[id number] Date: 02/01/2025 Date of admission: 01/30/2025 Hospital length of stay: 2 days Subjective PATIENT DESCRIPTION: Allie Diaz is a 79 yo on Plavix who was in the [employer] parking lot when she bent down to pick something up and fell. Unknown if there was LOC. Accident occurred around 11:00. She presented to [facility] where CT scans revealed an SAH and SDH and a large right hip hematoma with concern for active extravasation. There were also multiple healing right rib fractures (on our exam she did have tendernessand ecchymosis). She was transferred to [facility] [place] as a level 2 trauma alert. GCS 14 on arrival. INJURY COMPLEX: - Small parafalcine SDH - Scattered trace SAH - Large right thigh hematoma - Right intra-articular distal radius fracture - Right knee contusion - Multiple healing right rib fractures INTERIM HISTORY / SUBJECTIVE: Overnight: Disoriented overnight, AFVSS. This morning, patient evaluated at bedside. Doing well, denies any complaints, pain is well controlled. Satting well on RA. Labs WNL, hgb mildly downtrending 10.2 from 11.0. Objective CONSTITUTIONAL DATA / OBJECTIVE: Vital Signs (Most Recent): Pulse: 56 (02/01/25 0700) BP: 110/56 (02/01/25699) Resp: 17 (02/01/25699) Temp: 37 °C (98.6 °F) (02/01/25399) SpO2: 96 % (02/01/25699) Vital Signs (Last 24 Hours): Pulse Av.8 Min: 55 Max: 78 No data recorded Most Recent Systolic BP Av.8 mmHg Min: 84 mmHg Max: 125 mmHg Most Recent Diastolic BP Av.6 mmHg Min: 49 mmHg Max: 96 mmHg Resp Av.7 Min: 14 Max: 23 Most Recent Temperature Av.5 C Min: 36 C Max: 37 C SpO2 Av.9 % Min: 94 % Max: 100 % Ventilatory Support: HFNC: CPAP/EPAP: IPAP: Intake & Output Summary (Last 24 hours): Intake/Output Summary (Last 24 hours) at 02/01/2025905 Last data filed at 02/01/2025 07 Gross per 24 hour Intake 1469.2 ml Output 675 ml Net 794.2 ml Net IO Since Admission: -383.56 mL [01/31/25748] Height & Weight: Height: 165.1 cm (5' 5") (01/31/25399) Weight: 89.5 kg (197 lb 5 oz) (01/31/25399) Weight change: Body mass index is 32.83 kg/m². Physical Examination: Head: normocephalic / atraumatic Eyes: pupils 3 mm, bilaterally reactive to light, extraocular muscles intact ENT: oropharynx clear, moist mucous membranes, dentures in place Neck: supple, non-tender, trachea midline Respiratory: clear to auscultation bilaterally Cardiovascular: regular rate and rhythm, palpable peripheral pulses present Abdomen: soft, non-tender, non-distended Back: no tenderness across thoracic / lumbar spine, no stepoffs or deformities Pelvis: non-tender, stable to anterior-posterior/lateral compression Rectal: deferred Genitourinary: normal female genitalia Musculoskeletal: no palpable long bone deformities, motor / sensation grossly intact, strength 5/5 in all extremities Skin: grossly intact; large hematoma to right hip, right eyebrow hematoma Neurologic: GCS Adult: eyes open 4 = spontaneous, best verbal response 4 = disoriented, inappropriate, cries, best motor response 6 = obeys commands appropriate for age CATHETERS: none TUBES & DRAINS: none Peripheral Line Left Antecubital 18 Gauge (Active) Number of days: 2 Peripheral Line Left;Lower Arm 20 Gauge (Active) Number of days: 2 Laboratory Values: reviewed. -- Brief labs below include the 7 most recent results over the past week. Blood Gas: No results in the last 7 days - inpatent use only Chemistry Panel: Lab results within last 7 days (see chart for full results) Units 02/01/25 0634 01/31/25 0710 01/30/25 1709 SODIUM mmol/L 142 141 141 POTASSIUM mmol/L 3.8 3.7 4.7 CHLORIDE mmol/L 107 107 105 CO2 mmol/L 24 24 23 EGFR mL/min 65 78 68 BUN mg/dL 20 17 19 CREATININE mg/dL 0.9 0.8 0.9 GLUCOSE mg/dL 102 97 96 CALCIUM mg/dL 8.2* 8.1* 8.6 Magnesium mg/dL 2.1 2.0 -- Phosphorus mg/dL 3.6 3.8 -- ANION GAP mmol/L 11 10 13 Complete Blood Count: Lab results within last 7 days (see chart for full results) Units 02/01/25 0634 01/31/25 0710 01/30/25 2317 01/30/25 1709 WBC K/uL 7.10 7.16 8.14 12.73* HGB g/dL 10.2* 11.0* 11.0* 12.5 HCT % 33.0* 35.9* 35.3* 40.4 PLT K/uL 169 181 197 262 MCV fL 90.9 90.7 89.8 90.8 Cardiac Studies: No results in the last 7 days - inpatent use only Coagulation Studies: Lab results within last 7 days (see chart for full results) Units 01/30/25 1709 Prothrombin Time seconds 13.1 INR 1.0 aPTT seconds 24 Liver Function Panel: Lab results within last 7 days (see chart for full results) Units 01/30/25 1709 AST U/L 28 Infectious Studies: Lab results within last 7 days (see chart for full results) Units 01/30/25 1709 Lactate mmol/L 1.3 Cultures: reviewed. Recent Cultures (2 Weeks) 01/31/2025 1:35 AM QUANT URINE CULTURE GROWTH No significant growth Radiographic Studies: reviewed. CT UPPER EXTREMITY RIGHT WO CONTRAST Result Date: 01/31/2025 IMPRESSION Distal radius intra-articular fracture. XR HIP UNILAT 2-3 VIEWS INCLUDING AP PELVIS Result Date: 01/31/2025 IMPRESSION 1. No acute fracture or dislocation. 2. Mild osteoarthritis of the right knee. XR FEMUR MINIMUM 2 VIEWS Result Date: 01/31/2025 IMPRESSION 1. No acute fracture or dislocation. 2. Mild osteoarthritis of the right knee. XR WRIST 3 OR MORE VIEWS Result Date: 01/31/2025 IMPRESSION Intra-articular distal right radius fracture in stable alignment status post splinting. CT HEAD/BRAIN WO CONTRAST Result Date: 01/31/2025 IMPRESSION Unchanged small volume subarachnoid hemorrhage along the right frontal lobe and small anterior parafalcine subdural hematoma. No evidence of new or progressive hemorrhage. I have personally reviewed this examination and agree with the resident/fellow physician's interpretation. XR FOREARM 2 VIEWS Result Date: 01/30/2025 IMPRESSION 1. Acute right intra-articular distal radius fracture. 2. Scapholunate interval appears mildly widened. Mild negative ulnar variance. XR WRIST 3 OR MORE VIEWS Result Date: 01/30/2025 IMPRESSION 1. Acute right intra-articular distal radius fracture. 2. Scapholunate interval appears mildly widened. Mild negative ulnar variance. XR HAND 3 OR MORE VIEWS Result Date: 01/30/2025 IMPRESSION 1. Acute right intra-articular distal radius fracture. 2. Scapholunate interval appears mildly widened. Mild negative ulnar variance. XR KNEE 1-2 VIEWS Result Date: 01/30/2025 IMPRESSION 1. Acute right intra-articular distal radius fracture. 2. Scapholunate interval appears mildly widened. Mild negative ulnar variance. XR ELBOW 3 OR MORE VIEWS Result Date: 01/30/2025 IMPRESSION 1. Acute right intra-articular distal radius fracture. 2. Scapholunate interval appears mildly widened. Mild negative ulnar variance. CTA HEAD/CTA NECK Result Date: 01/30/2025 IMPRESSION 1. Small acute parafalcine subdural hematoma has slightly increased in size, now measuring up to 3-4 mm in maximum thickness. 2. Similar scattered trace subarachnoid hemorrhage. 3. No new sites of intracranial hemorrhage or evidence of an acute territorial infarct. 4. No evidence of traumatic cerebrovascular injury. 5. Right periorbital facial contusion/laceration without associated calvarial fracture. 6. 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 7. Moderate stenosis of the right internal carotid artery supraclinoid segment and moderate or greater stenosis of the right posterior cerebral artery origin. Non flow-limiting atherosclerotic changes in the head/neck, as discussed. The above impression was communicated to Amanda Arechiga and LISE MERCHANT by the university president (Dr. Afua Suarez) via secure text message at 5:32 p.m. and 6:03 p.m., respectively on 01/30/2025. Understanding was expressed. I have personally reviewed this examination and agree with the resident/fellow physician's interpretation. XR CHEST 1 VIEW Result Date: 01/30/2025 IMPRESSION No acute traumatic findings. I have personally reviewed this examination and agree with the resident/fellow physician's interpretation. Assessment & Plan Principal Problem: Multiple injuries due to trauma (POA: Yes) Active Problems: Hypothyroidism (POA: Yes) Restless leg syndrome (POA: Yes) Type 2 diabetes mellitus with hemoglobin A1c goal of less than 7.0% (HCC) (POA: Yes) Overview: Per Diabetes Taxonomy. ICD-10 update of inactive term Dyslipidemia, goal LDL below 100 (POA: Yes) Overview: Per Lipid Taxonomy. 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, recurrent severe without psychotic features (HCC) (POA: Yes) Essential (primary) hypertension (POA: Yes) Generalized anxiety disorder (POA: Yes) Fall (POA: Yes) Macular degeneration (POA: Yes) Laceration of brow without complication (POA: Yes) Overview: Right eye/brow laceration SAH (subarachnoid hemorrhage) (HCC) (POA: Yes) SDH (subdural hematoma) (HCC) (POA: Yes) Hematoma of right thigh (POA: Yes) Closed fracture of distal end of right radius (POA: Yes) Contusion of right knee (POA: Yes) Obesity (POA: Yes) POA = Present On Admission NEUROLOGIC: Small parafalcine SDH Trace SAH NSGY consult Keppra 500 BID x7 days Hold Ap/Ac x14 days Ok for DVT chemo ppx and diet Will follow up outpatient in 2 weeks w/ rCTH Hx CVA Recurrent FLOREZ Start YEAST PUMPER gabapentin Hold YEAST PUMPER plavix MDD RACHEL RLS Restart YEAST PUMPER Ativan 0.5 mg q8h PRN Continue YEAST PUMPER wellbutrin XL 300 mg, prozac 40 mg, remeron Pain Control: Tylenol ATC Oxy 2.5/5 prn Current Pain Score: 0 (no pain) (01/31/251999) Delirium/Confusion Assessment: CAM-ICU Positive?: No (01/31/25399) Q4h neurochecks PULMONARY / RESPIRATORY: No acute concerns Satting well on RA RPDP, IS, flutter CARDIOVASCULAR: HTN Hold YEAST PUMPER lisinopril HLD YEAST PUMPER atorvastatin GASTROINTESTINAL / HEPATOBILIARY: No acute concerns Last Bowel Movement: 01/31/25 (01/31/252199) Stool Description: Loose;Small;Brown (01/31/252199) Bowel Regimen: senna, colace Stress Ulcer Prophylaxis: not indicated at this time.. Diet / Nutrition: Reg diet w thin liquids per [employer] RENAL / METABOLIC / FLUIDS: Urinary incontinence Straight cath protocol Voiding spontaneously Fluids off Serum creatinine: 0.9 mg/dL 02/01/25 0634 Estimated creatinine clearance: 56.9 mL/min INFECTIOUS DISEASES: No acute concerns UA negative ENDOCRINE: T2DM Hold YEAST PUMPER metformin Low dose SSI Glycemic Control: well contolled Most recent: Glucose (Bedside): 101 (02/01/25 0800) Last 24 hours: Glucose (Bedside) Av.5 Min: 90 Max: 158 Last 36 hours: Glucose (Bedside) Av.5 Min: 90 Max: 158 Last 48 hours: Glucose (Bedside) Av.5 Min: 90 Max: 158 Hypothyroidism YEAST PUMPER levoxyl HEMATOLOGIC: No acute concerns CBC daily, will recheck h/h at 1800 VTE/DVT Prophylaxis: TY/SCD, SQH MUSCULOSKELETAL/ P.T / O.T. / MOBILITY: R minimally displaced intraarticular distal radius fx R knee contusion Ortho consult [facility] discussed possible non op vs operative intervention pending right hip imaging - update: appears WNL Ice, elevate extremity to the level of the heart. No plan for urgent surgical intervention at this time OK to d/c from ortho perspective Will arrange ortho f/u Okay to use platform walker and weight bearing through shoulder with PT/OT Large right thigh hematoma Ok to remove binder Osteoporosis [facility] will [facility]) Check 25 oh vit d DXA scan (we will order) Considering stopping Fosamax and transitioning to Prolia (defer to follow up [facility] visit) Check PTH at follow up visit to rule out HPT given wrist fracture. Hold YEAST PUMPER fosamax YEAST PUMPER vitD3 PT/OT: [facility] 16 DERMATOLOGIC / WOUND CARE: No acute concerns Wound care PRN LINES / DRAINS / TUBES: LINES ALL Duration Peripheral Line Left Antecubital 18 Gauge 2 days Peripheral Line Left;Lower Arm 20 Gauge 1 day List of consulted services: ADULT/PEDS ORTHOPAEDICS CONSULT IP RHEUMATOLOGY CONSULT IP ADULT OCCUPATIONAL THERAPY CONSULT IP ADULT PHYSICAL THERAPY CONSULT IP ADULT SPEECH THERAPY CONSULT IP (ACUTE CARE REHAB) GLOBAL ISSUES: Code Status: No Code Delirium/Confusion Assessment Method for ICU (CAM-ICU): CAM-ICU negative Chlorhexidine mouth rinse every twelve hours Central Line Necessity Reviewed: N/A Disposition: med/surg Patient was discussed with MD Leandro Salas MD PGY1 | Critical Care Cosigned by Amber Rebolledo MD at 02/01/2025 12:25 PM EDT Associated attestation - Amber Rebolledo MD - 02/01/2025 12:25 PM EDT I saw and evaluated the patient today. I have reviewed the resident/fellow physician note and agreewith the following changes. Mechanism: fall from standing Injury complex/active problems: Principal Problem: Multiple injuries due to trauma (POA: Yes) Active Problems: Hypothyroidism (POA: Yes) Restless leg syndrome (POA: Yes) Type 2 diabetes mellitus with hemoglobin A1c goal of less than 7.0% (HCC) (POA: Yes) Overview: Per Diabetes Taxonomy. ICD-10 update of inactive term Dyslipidemia, goal LDL below 100 (POA: Yes) Overview: Per Lipid Taxonomy. 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, recurrent severe without psychotic features (HCC) (POA: Yes) Essential (primary) hypertension (POA: Yes) Generalized anxiety disorder (POA: Yes) Fall (POA: Yes) Macular degeneration (POA: Yes) Laceration of brow without complication (POA: Yes) Overview: Right eye/brow laceration SAH (subarachnoid hemorrhage) (HCC) (POA: Yes) SDH (subdural hematoma) (HCC) (POA: Yes) Hematoma of right thigh (POA: Yes) Closed fracture of distal end of right radius (POA: Yes) Contusion of right knee (POA: Yes) Obesity (POA: Yes) POA = Present On Admission Procedures: none 24 hour events: somewhat confused overnight. Still confused this morning and not sure where she is.Denies pain. Neurological: SDH SAH Hx/o stroke - neurosurgery consulted -repeat head CT 6 hours after first-> stable -keppra x 7 days per protocol -HOB >30 degrees -q4hr neuro checks -hold YEAST PUMPER plavix MDD, RACHEL -mining captain prozac, wellbutrin, remeron, ativan Pain control: -mining captain gabapentin (pt on for recurrent headaches after stroke) -tylenol -prn oxy, soma Respiratory: No acute issues -encourage pulmonary toilet. Cardiovascular: HTN -holding mining captain lisinopril HLD -mining captain statin Gastrointestinal: No acute issues GI ppx: n/a Diet: cleared by [employer] for regular diet Bowel regimen: senna, colace and LBM: mining captain Infectious Disease: No acute issues Renal - Metabolic: No acute issues Endocrine: DM2 -hold mining captain metformin -low dose SSI Hypothyroid -mining captain levoxyl Hematology: Acute blood loss anemia - trend CBC q daily - blood conservation consult if hgb <10 - transfuse for Hgb <7 DVT ppx: SQH, SCDs, Teds Musculoskeletal: Right thigh/lateral hip hematoma Acute blood loss anemia -binder removed. - trend CBC q 12h - blood conservation consult if hgb <10 - transfuse for Hgb <7 Right intraarticular distal radius fracture -ortho following -currently in splint. Nonweight bearing -no plans for operative intervention currently. Osteoporosis -hold mining captain fosamax -mining captain vitamin D. -HiROC consulted. Lines: Peripheral Line Left Antecubital 18 Gauge (Active) Number of days: 2 Peripheral Line Left;Lower Arm 20 Gauge (Active) Number of days: 2 Level of care: med surg Disposition: med surg I have provided critical care diagnostic services for neurologic failure and therapeutic services with neurological monitoring and treatment for this patient on the date referenced above. Time devoted to patient care services described in this note equal: 45 minutes total critical care time exclusive of time spent performing procedures or time spent by another provider or resident. I have personally provided 45 minutes of critical care time exclusive of time spent on separately billable procedures. Time includes review of laboratory data, radiology results and monitoring for potential decompensation. Interventions were performed as documented above. Upon my evaluation, this patient had a high probability of imminent or life- threatening deterioration due to SDH, SAH, which required my direct attention, intervention, and personal management. Amber Rebolledo MD * Leandro Schmitt MD - 01/31/2025 10:14 AM EDT CCM - PROGRESS NOTE [facility] [place] [id number] Name: Allie Diaz Location: [facility] [place] G503/[id number] Date: 01/31/2025 Date of admission: 01/30/2025 Hospital length of stay: 1 days Subjective PATIENT DESCRIPTION: Allie Diaz is a 79 yo on Plavix who was in the [employer] parking lot when she bent down to pick something up and fell. Unknown if there was LOC. Accident occurred around 11:00. She presented to [facility] where CT scans revealed an SAH and SDH and a large right hip hematoma with concern for active extravasation. There were also multiple healing right rib fractures (on our exam she did have tendernessand ecchymosis). She was transferred to [facility] [place] as a level 2 trauma alert. GCS 14 on arrival. INJURY COMPLEX: - Small parafalcine SDH - Scattered trace SAH - Large right thigh hematoma - Right intra-articular distal radius fracture - Right knee contusion - Multiple healing right rib fractures INTERIM HISTORY / SUBJECTIVE: Overnight: NAEO, AFVSS. Repeat CTH stable. This morning, patient evaluated at bedside. Doing well, denies any complaints, pain is well controlled. Denies any knowledge of prior rib fractures. Satting well on RA. Labs WNL, hgb stable. Objective CONSTITUTIONAL DATA / OBJECTIVE: Vital Signs (Most Recent): Pulse: 60 (01/31/25699) BP: 101/54 (01/31/25699) Resp: 16 (01/31/25699) Temp: 36.2 °C (97.2 °F) (01/31/25799) SpO2: 98 % (01/31/25699) Vital Signs (Last 24 Hours): Pulse Av.3 Min: 55 Max: 79 No data recorded Most Recent Systolic BP Av.5 mmHg Min: 85 mmHg Max: 156 mmHg Most Recent Diastolic BP Av.6 mmHg Min: 54 mmHg Max: 115 mmHg Resp Av.7 Min: 12 Max: 26 Most Recent Temperature Av.7 C Min: 36.22 C Max: 37.22 C SpO2 Av.8 % Min: 95 % Max: 100 % Ventilatory Support: HFNC: CPAP/EPAP: IPAP: Intake & Output Summary (Last 24 hours): Intake/Output Summary (Last 24 hours) at 01/31/2025748 Last data filed at 01/31/2025699 Gross per 24 hour Intake 876.44 ml Output 1260 ml Net -383.56 ml Net IO Since Admission: -383.56 mL [01/31/25748] Height & Weight: Height: 165.1 cm (5' 5") (01/31/25399) Weight: 89.5 kg (197 lb 5 oz) (01/31/25399) Weight change: Body mass index is 32.83 kg/m². Physical Examination: Head: normocephalic / atraumatic Eyes: pupils 3 mm, bilaterally reactive to light, extraocular muscles intact ENT: oropharynx clear, moist mucous membranes, dentures in place Neck: supple, non-tender, trachea midline Respiratory: clear to auscultation bilaterally Cardiovascular: regular rate and rhythm, palpable peripheral pulses present Abdomen: soft, non-tender, non-distended Back: no tenderness across thoracic / lumbar spine, no stepoffs or deformities Pelvis: non-tender, stable to anterior-posterior/lateral compression Rectal: deferred Genitourinary: normal female genitalia Musculoskeletal: no palpable long bone deformities, motor / sensation grossly intact, strength 5/5 in all extremities Skin: grossly intact; large hematoma to right hip, right eyebrow hematoma Neurologic: GCS Adult: eyes open 4 = spontaneous, best verbal response 4 = disoriented, inappropriate, cries, best motor response 6 = obeys commands appropriate for age CATHETERS: none TUBES & DRAINS: none Peripheral Line Left Antecubital 18 Gauge (Active) Number of days: 1 Peripheral Line Left;Lower Arm 20 Gauge (Active) Number of days: 1 Laboratory Values: reviewed. -- Brief labs below include the 7 most recent results over the past week. Blood Gas: No results in the last 7 days - inpatent use only Chemistry Panel: Lab results within last 7 days (see chart for full results) Units 01/30/25 1709 SODIUM mmol/L 141 POTASSIUM mmol/L 4.7 CHLORIDE mmol/L 105 CO2 mmol/L 23 EGFR mL/min 68 BUN mg/dL 19 CREATININE mg/dL 0.9 GLUCOSE mg/dL 96 CALCIUM mg/dL 8.6 ANION GAP mmol/L 13 Complete Blood Count: Lab results within last 7 days (see chart for full results) Units 01/31/25 0710 01/30/25 2317 01/30/25 1709 WBC K/uL 7.16 8.14 12.73* HGB g/dL 11.0* 11.0* 12.5 HCT % 35.9* 35.3* 40.4 PLT K/uL 181 197 262 MCV fL 90.7 89.8 90.8 Cardiac Studies: No results in the last 7 days - inpatent use only Coagulation Studies: Lab results within last 7 days (see chart for full results) Units 01/30/25 1709 Prothrombin Time seconds 13.1 INR 1.0 aPTT seconds 24 Liver Function Panel: Lab results within last 7 days (see chart for full results) Units 01/30/25 1709 AST U/L 28 Infectious Studies: Lab results within last 7 days (see chart for full results) Units 01/30/25 1709 Lactate mmol/L 1.3 Cultures: reviewed. Recent Cultures (2 Weeks) No lab values to display. Radiographic Studies: reviewed. XR HIP UNILAT 2-3 VIEWS INCLUDING AP PELVIS Result Date: 01/31/2025 IMPRESSION 1. No acute fracture or dislocation. 2. Mild osteoarthritis of the right knee. XR FEMUR MINIMUM 2 VIEWS Result Date: 01/31/2025 IMPRESSION 1. No acute fracture or dislocation. 2. Mild osteoarthritis of the right knee. XR WRIST 3 OR MORE VIEWS Result Date: 01/31/2025 IMPRESSION Intra-articular distal right radius fracture in stable alignment status post splinting. CT HEAD/BRAIN WO CONTRAST Result Date: 01/31/2025 IMPRESSION Unchanged small volume subarachnoid hemorrhage along the right frontal lobe and small anterior parafalcine subdural hematoma. No evidence of new or progressive hemorrhage. I have personally reviewed this examination and agree with the resident/fellow physician's interpretation. XR FOREARM 2 VIEWS Result Date: 01/30/2025 IMPRESSION 1. Acute right intra-articular distal radius fracture. 2. Scapholunate interval appears mildly widened. Mild negative ulnar variance. XR WRIST 3 OR MORE VIEWS Result Date: 01/30/2025 IMPRESSION 1. Acute right intra-articular distal radius fracture. 2. Scapholunate interval appears mildly widened. Mild negative ulnar variance. XR HAND 3 OR MORE VIEWS Result Date: 01/30/2025 IMPRESSION 1. Acute right intra-articular distal radius fracture. 2. Scapholunate interval appears mildly widened. Mild negative ulnar variance. XR KNEE 1-2 VIEWS Result Date: 01/30/2025 IMPRESSION 1. Acute right intra-articular distal radius fracture. 2. Scapholunate interval appears mildly widened. Mild negative ulnar variance. XR ELBOW 3 OR MORE VIEWS Result Date: 01/30/2025 IMPRESSION 1. Acute right intra-articular distal radius fracture. 2. Scapholunate interval appears mildly widened. Mild negative ulnar variance. CTA HEAD/CTA NECK Result Date: 01/30/2025 IMPRESSION 1. Small acute parafalcine subdural hematoma has slightly increased in size, now measuring up to 3-4 mm in maximum thickness. 2. Similar scattered trace subarachnoid hemorrhage. 3. No new sites of intracranial hemorrhage or evidence of an acute territorial infarct. 4. No evidence of traumatic cerebrovascular injury. 5. Right periorbital facial contusion/laceration without associated calvarial fracture. 6. 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 7. Moderate stenosis of the right internal carotid artery supraclinoid segment and moderate or greater stenosis of the right posterior cerebral artery origin. Non flow-limiting atherosclerotic changes in the head/neck, as discussed. The above impression was communicated to Amanda Arechiga and LISE MERCHANT by the university president (Dr. Afua Suarez) via secure text message at 5:32 p.m. and 6:03 p.m., respectively on 01/30/2025. Understanding was expressed. I have personally reviewed this examination and agree with the resident/fellow physician's interpretation. XR CHEST 1 VIEW Result Date: 01/30/2025 IMPRESSION No acute traumatic findings. I have personally reviewed this examination and agree with the resident/fellow physician's interpretation. Assessment & Plan Principal Problem: Multiple injuries due to trauma (POA: Yes) Active Problems: Hypothyroidism (POA: Yes) Restless leg syndrome (POA: Yes) Type 2 diabetes mellitus with hemoglobin A1c goal of less than 7.0% (HCC) (POA: Yes) Overview: Per Diabetes Taxonomy. ICD-10 update of inactive term Dyslipidemia, goal LDL below 100 (POA: Yes) Overview: Per Lipid Taxonomy. 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, recurrent severe without psychotic features (HCC) (POA: Yes) Essential (primary) hypertension (POA: Yes) Generalized anxiety disorder (POA: Yes) Fall (POA: Yes) Macular degeneration (POA: Yes) Laceration of brow without complication (POA: Yes) Overview: Right eye/brow laceration SAH (subarachnoid hemorrhage) (HCC) (POA: Yes) SDH (subdural hematoma) (HCC) (POA: Yes) Hematoma of right thigh (POA: Yes) Closed fracture of distal end of right radius (POA: Yes) Contusion of right knee (POA: Yes) Obesity (POA: Yes) POA = Present On Admission NEUROLOGIC: Small parafalcine SDH Trace SAH NSGY consult Keppra 500 BID x7 days Hold Ap/Ac x14 days Ok for DVT chemo ppx and diet Will follow up outpatient in 2 weeks w/ rCTH Hx CVA Recurrent FLOREZ Start YEAST PUMPER gabapentin Hold YEAST PUMPER plavix MDD RACHEL RLS Restart YEAST PUMPER Ativan 0.5 mg q8h PRN Continue YEAST PUMPER wellbutrin XL 300 mg, prozac 40 mg, remeron Pain Control: Tylenol ATC Oxy 2.5/5 prn Current Pain Score: 0 (no pain) (01/31/25 0700) Delirium/Confusion Assessment: CAM-ICU Positive?: No (01/31/25 0400) Q1h neurochecks, liberalize to q4 PULMONARY / RESPIRATORY: No acute concerns Satting well on RA RPDP, IS, flutter CARDIOVASCULAR: HTN Hold YEAST PUMPER lisinopril HLD Hold YEAST PUMPER atorvastatin, restart today GASTROINTESTINAL / HEPATOBILIARY: No acute concerns Bowel Regimen: senna, colace Stress Ulcer Prophylaxis: not indicated at this time.. Diet / Nutrition: NPO x meds, cleared for reg diet w thin liquids by [employer], will advance RENAL / METABOLIC / FLUIDS: Urinary incontinence Straight cath protocol Now voiding spontaneously NSS 75, will stop Serum creatinine: 0.9 mg/dL 01/30/25 1709 Estimated creatinine clearance: 56.9 mL/min Monitor electrolytes at least daily. Replete electrolytes as indicated Strict monitoring of fluid intake and output INFECTIOUS DISEASES: No acute concerns UA negative ENDOCRINE: T2DM Hold YEAST PUMPER metformin Will add low dose SSI Glucose ACHS Glycemic Control: well contolled Most recent: Last 24 hours: No data recorded Last 36 hours: No data recorded Last 48 hours: No data recorded Hypothyroidism Start YEAST PUMPER levoxyl HEMATOLOGIC: No acute concerns Q6h CBC, Hgb stable - will liberalize to daily VTE/DVT Prophylaxis: TY/SCD, start SQH today MUSCULOSKELETAL/ P.T / O.T. / MOBILITY: R minimally displaced intraarticular distal radius fx R knee contusion Ortho consult TAWNY SAN discussed possible non op vs operative intervention pending right hip imaging - update: appears WNL Ice, elevate extremity to the level of the heart. No plan for urgent surgical intervention at this time OK to d/c from ortho perspective Will arrange ortho f/u Large right thigh hematoma Ok to remove binder Osteoporosis Hold YEAST PUMPER fosamax YEAST PUMPER vitD3 PT/OT DERMATOLOGIC / WOUND CARE: No acute concerns Wound care PRN LINES / DRAINS / TUBES: LINES ALL Duration Peripheral Line Left Antecubital 18 Gauge 1 day Peripheral Line Left;Lower Arm 20 Gauge <1 day List of consulted services: ADULT/PEDS ORTHOPAEDICS CONSULT IP RHEUMATOLOGY CONSULT IP ADULT OCCUPATIONAL THERAPY CONSULT IP ADULT PHYSICAL THERAPY CONSULT IP ADULT SPEECH THERAPY CONSULT IP (ACUTE CARE REHAB) GLOBAL ISSUES: Code Status: No Code Delirium/Confusion Assessment Method for ICU (CAM-ICU): CAM-ICU negative Chlorhexidine mouth rinse every twelve hours Central Line Necessity Reviewed: N/A Disposition: keep in ICU, bumpable to med/surg Patient was discussed with MD Leandro Salas MD PGY1 | Critical Care Cosigned by Amber Rebolledo MD at 01/31/2025 3:46 PM EDT Associated attestation - Amber Rebolledo MD - 01/31/2025 3:46 PM EDT I saw and evaluated the patient today. I have reviewed the resident/fellow physician note and agreewith the following changes. Mechanism: fall from standing Injury complex/active problems: Principal Problem: Multiple injuries due to trauma (POA: Yes) Active Problems: Hypothyroidism (POA: Yes) Restless leg syndrome (POA: Yes) Type 2 diabetes mellitus with hemoglobin A1c goal of less than 7.0% (HCC) (POA: Yes) Overview: Per Diabetes Taxonomy. ICD-10 update of inactive term Dyslipidemia, goal LDL below 100 (POA: Yes) Overview: Per Lipid Taxonomy. 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, recurrent severe without psychotic features (HCC) (POA: Yes) Essential (primary) hypertension (POA: Yes) Generalized anxiety disorder (POA: Yes) Fall (POA: Yes) Macular degeneration (POA: Yes) Laceration of brow without complication (POA: Yes) Overview: Right eye/brow laceration SAH (subarachnoid hemorrhage) (HCC) (POA: Yes) SDH (subdural hematoma) (HCC) (POA: Yes) Hematoma of right thigh (POA: Yes) Closed fracture of distal end of right radius (POA: Yes) Contusion of right knee (POA: Yes) Obesity (POA: Yes) POA = Present On Admission Procedures: none 24 hour events: no acute events overnight. Repeat head CT stable. No neuro changes. Neurological: SDH SAH Hx/o stroke - neurosurgery consulted -repeat head CT 6 hours after first-> stable -keppra x 7 days per protocol -HOB >30 degrees -q1hr neuro checks--> q4hr -hold YEAST PUMPER plavix MDD, RACHEL -resume mining captain prozac, wellbutrin, remeron, ativan Pain control: -restart mining captain gabapentin (pt on for recurrent headaches after stroke) -tylenol -prn oxy, soma Respiratory: No acute issues -encourage pulmonary toilet. Cardiovascular: HTN -holding mining captain lisinopril HLD -resume mining captain statin Gastrointestinal: No acute issues GI ppx: n/a Diet: cleared by [employer] for regular diet Bowel regimen: senna, colace and LBM: mining captain Infectious Disease: No acute issues Renal - Metabolic: -d/c IVF Endocrine: DM2 -hold mining captain metformin -start low dose SSI Hypothyroid -resume mining captain levoxyl Hematology: Acute blood loss anemia - trend CBC q daily - blood conservation consult if hgb <10 - transfuse for Hgb <7 DVT ppx: ok to start SQH, SCDs, Teds Musculoskeletal: Right thigh/lateral hip hematoma -ok to remove binder today. Hgb is stable. Right intraarticular distal radius fracture -ortho following -currently in splint. Nonweight bearing -no plans for operative intervention currently. Osteoporosis -hold mining captain fosamax -mining captain vitamin D. Lines: Peripheral Line Left Antecubital 18 Gauge (Active) Number of days: 1 Peripheral Line Left;Lower Arm 20 Gauge (Active) Number of days: 1 Level of care: ICU Disposition: ICU I have provided critical care diagnostic services for neurologic failure and therapeutic services with neurological monitoring and treatment for this patient on the date referenced above. Time devoted to patient care services described in this note equal: 45 minutes total critical care time exclusive of time spent performing procedures or time spent by another provider or resident. I have personally provided 45 minutes of critical care time exclusive of time spent on separately billable procedures. Time includes review of laboratory data, radiology results and monitoring for potential decompensation. Interventions were performed as documented above. Upon my evaluation, this patient had a high probability of imminent or life- threatening deterioration due to SDH, SAH, which required my direct attention, intervention, and personal management. Amber Rebolledo MD * Kevin Nolen MD - 01/31/2025 2:24 AM EDT NEUROLOGICAL SURGERY PROGRESS NOTE [address] [address] Name: Allie Diaz Location: [facility] [place] G503/A Date: 01/31/2025 Time: 2:25 AM SUBJECTIVE: No acute events. OBJECTIVE: Most recent vital signs: BP: 124 mmHg/60 mmHg (01/31/25204) Pulse: 55 (01/31/25204) Resp: 12 (01/31/25204) Temp: 36.28 C (01/31/25 0000) Temp Summary: Temp Min: 36.3 °C (97.3 °F) Max: 37.2 °C (99 °F) SpO2: 98 % (01/31/25204) O2 flow rate: Supplemental O2 Delivery: Room Air, None (01/31/25 0000) Vital signs over last 24 hours: Systolic BP: Most Recent Systolic BP Av.5 mmHg Min: 85 mmHg Max: 156 mmHg Temperature: Most Recent Temperature Av.9 C Min: 36.28 C Max: 37.22 C Pulse: Pulse Avg: Pulse Av.1 Min: 55 Max: 75 Respirations: Resp Av.1 Min: 12 Max: 26 SpO2: SpO2 Av.4 % Min: 95 % Max: 98 % SpO2: SpO2 Av.4 % Min: 95 % Max: 98 % FiO2%: No data recorded ICP: No data found.CPP (adult): No data found.Intake Input/Output: (last 24 hours) Intake/Output Summary (Last 24 hours) at 01/31/2025224 Last data filed at 01/31/2025 020 Gross per 24 hour Intake 501.41 ml Output 610 ml Net -108.59 ml Neurologic Examination [place] Coma Scale (GCS): Eyes Open: 4 = spontaneous Best Verbal Response: 4 = disoriented, inappropriate, cries Best Motor Response: 6 = obeys commands appropriate for age Awake, alert, oriented to person, place, time PERRL EOMI No facial droop No pronator drift NORTH to command RUE 5/5 LUE 5/5 RLE 5/5 LLE 5/5 Sensation grossly intact LABS: Blood count: Lab Results Component Value Date/Time WBC 8.14 01/30/2025 11:17 PM WBC 6.72 03/07/2013 08:28 AM WBC 6.7 01/31/1997 07:31 AM WBC NEGATIVE 01/31/1997 07:31 AM HGB 11.0 (L) 01/30/2025 11:17 PM HGB 14.5 03/07/2013 08:28 AM HGB 14.6 01/31/1997 07:31 AM HCT 35.3 (L) 01/30/2025 11:17 PM HCT 44.5 03/07/2013 08:28 AM HCT 43.4 01/31/1997 07:31 AM PLT 197 01/30/2025 11:17 PM PLT 222 03/07/2013 08:28 AM PLT 224 01/31/1997 07:31 AM Coagulation studies: Lab Results Component Value Date/Time INR 1.0 01/30/2025 05:09 PM Chemistry: Lab Results Component Value Date/Time BUN 19 01/30/2025 05:09 PM BUN 16 11/19/2020 08:37 AM BUN 11 01/31/1997 07:31 AM CREAT 0.9 01/30/2025 05:09 PM CREAT 0.8 11/19/2020 08:37 AM GFRESTIMATED >60.0 11/19/2020 08:37 AM NA 141 01/30/2025 05:09 PM NA 140 11/19/2020 08:37 AM POTASSIUM 4.7 01/30/2025 05:09 PM POTASSIUM 4.5 11/19/2020 08:37 AM POTASSIUM 4.2 01/31/1997 07:31 AM CO2 23 01/30/2025 05:09 PM CO2 28 11/19/2020 08:37 AM Imaging studies: [facility] stable Problem list: Principal Problem: Multiple injuries due to trauma Active Problems: Hypothyroidism Restless leg syndrome Type 2 diabetes mellitus with hemoglobin A1c goal of less than 7.0% (HCC) Dyslipidemia, goal LDL below 100 History of CVA (cerebrovascular accident) 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 * CLINICAL HISTORY AND PLAN: Allie Diaz 79 year old female [id number] w/ PMH significant for DM2, depression/anxiety, osteoporosis, L temporal stroke 2018 on Plavix 75, HLD, HTN, who presents to the neurosurgery service for trace tSAH and parafalcine SDH s/p mechanical FFS. Also with RUTrey fx. Keppra 500 BID x7 days Hold Ap/Ac x14 days Ok for DVT chemo ppx from nsgy perspective 24 hrs post stable rCTH Ok for diet from nsgy perspective Will follow up outpatient in 2 weeks w/ rCTH Thank you for the opportunity to provide care for this patient. Please reach out to the neurosurgery service for any additional questions. The author of this note may not be who is authorization nurse at this time. Please check the phonebook for the neurosurgery first call for any additional questions. Case discussed with attending physician. Cosigned by Pedro Chaudhry III, MD at 01/31/2025 11:12 AM EDT Associated attestation - Pedro Chaudhry III, MD - 01/31/2025 11:12 AM EDT I saw and evaluated the patient today. I have reviewed the resident/fellow physician note and agree. documented in this encounter H&P Notes * Leandro Schmitt MD - 01/31/2025 11:27 AM EDT TRAUMA TERTIARY SURVEY [facility] [place] [address] Name: Allie Diaz Location: [facility] [place] G503/A Date: 01/31/2025 Time: 11:27 AM PHYSICAL EXAM: Head: normocephalic / atraumatic Eyes: pupils 3 mm, bilaterally reactive to light, extraocular muscles intact ENT: oropharynx clear, moist mucous membranes, dentures in place Neck: supple, non-tender, trachea midline Respiratory: clear to auscultation bilaterally Cardiovascular: regular rate and rhythm, palpable peripheral pulses present Abdomen: soft, non-tender, non-distended Back: no tenderness across thoracic / lumbar spine, no stepoffs or deformities Pelvis: non-tender, stable to anterior-posterior/lateral compression Rectal: deferred Genitourinary: normal female genitalia Musculoskeletal: no palpable long bone deformities, motor / sensation grossly intact, strength 5/5 in all extremities Skin: grossly intact; large hematoma to right hip, right eyebrow hematoma Neurologic: GCS Adult: eyes open 4 = spontaneous, best verbal response 4 = disoriented, inappropriate, cries, best motor response 6 = obeys commands appropriate for age UA: negative SUBSTANCE ABUSE: ETOH: negative Substance Screen: negative CT SCAN: Head - acute findings, Cervical Spine - no acute injuries, Thorax - no acute injuries, andAbdomen/Pelvis - no acute injuries C-SPINE CLEARANCE: Yes - by trauma team RADIOGRAPHS: CXR - no acute injuries, pelvis - no acute injuries, and extremity - acute findings MEDICATION RECONCILIATION: done NEW DIAGNOSTIC TESTS ORDERED: none CONSULTS: Neurosurgery, Orthopaedics, Pharmacy, P.T., and O.T. INCIDENTAL FINDINGS: none I have reviewed the patient’s controlled substance dispensing history in the Prescription Drug Monitoring Program in compliance with the [facility] regulations before prescribing a controlled substance: no concerns, will proceed Cosigned by Amber Rebolledo MD at 01/31/2025 12:25 PM EDT * Janell Salamanca PA-C - 01/30/2025 5:24 PM EDT HISTORY AND PHYSICAL EXAMINATION - Trauma Surgery [address] [address] Name: Allie Diaz Location: Date: 01/30/2025 Time: 5:25 PM Date and Time Patient was Seen: 01/30/2025 at 1701 FINAL ADMISSION STATUS: Alert Level 2, time - 1701 Dr. Merchant led the Trauma Team in the care of this patient. The following represents documentationof the resuscitation performed by the entire trauma team under the leadership of the physician. There was pre-hospital notification of the case and patient condition. Chief Complaint: Right hip, right rib pain History of Present Illness: Patient is a 79 year old female with a PMHx of CVA, T2DM, DLD, hypothyroidism, anxiety, and depression who was a transfer from [facility] as a level 2 trauma alert. The patient is GCS 14, unable to provide a reliable history due to confusion. She was reported to be found down in a [employer] parking lot, confused, and possible left sided facial droop. She has a right forehead hematoma and eyebrow laceration that was repaired at OSH. Scans show SDH and right frontal subarachnoid hemorrhage. She also endorses some right sided rib and hip pain as well as a hematoma of the right hip. Unable to provide a reliable ROS secondary to confusion. MECHANISM OF INJURY: Fall from standing MODE OF TRANSPORTATION: ambulance LOSS OF CONSCIOUSNESS: unknown TETANUS VACCINE: There are no preventive care reminders to display for this patient. Administered in Trauma Kay: no PAST MEDICAL HISTORY: Past Medical History: Diagnosis Date Benign neoplasm [...] villous adenoma, FU due 09/20 Uterine leiomyoma PAST SURGICAL HISTORY: Past Surgical History: Procedure Laterality Date BIOPSY [...] 12/18/2005 hyperplastic 3 mm polyp, Dr Tinoco, [facility], repeat 2008 DEXA SCAN/BONE MINERAL AXIAL 2002 ok repeat in 2006 DIABETIC EYE EXAM 08/02/2012 no diabetic retinopathy FLEX SIG, GI REFERRAL OP 04/05/1999 polyps; diverticulitis INFORMATION labor and del x 3 INJECTION OF EYE DRUG Right 03/26/2017 # 1 Eylea OD, Dr. Reynoso INJECTION OF EYE DRUG Right 04/29/2017 # 2 Eylea OD, INJECTION OF EYE DRUG Right 07/23/2017 # 3 Eylea OD, Dr. Reynoso INJECTION OF EYE DRUG Right 08/26/2017 # 4 Eylea OD, INJECTION OF EYE DRUG Right 10/22/2017 # 5 Eylea OD, Dr. Reynoso INJECTION OF EYE DRUG Right 12/24/2017 # 6 Eylea OD, INJECTION OF EYE DRUG Right 01/27/2018 # 7 Eylea OD, Dr. Reynoso INJECTION OF EYE DRUG Right 03/04/2018 # 8 Eylea OD, Dr. Reynoso INJECTION OF EYE DRUG Right 04/07/2018 # 9 Eylea OD, Dr. Reynoso INJECTION OF EYE DRUG Right 05/13/2018 # 10 Eylea OD, INJECTION OF EYE DRUG Right 06/23/2018 # 11 Eylea OD, Dr. Reynoso INJECTION OF EYE DRUG Right 08/25/2018 # 12 Eylea OD, INJECTION OF EYE DRUG Right 10/27/2018 # 13 Eylea OD, Dr. Reynoso INJECTION OF EYE DRUG Right 12/30/2018 # 14 Eylea OD, INJECTION OF EYE DRUG Right 02/23/2019 # 15 Eylea OD, Dr. Reynoso INJECTION OF EYE DRUG Right 04/20/2019 # 16 Eylea OD, INJECTION OF EYE DRUG Right 06/15/2019 # 17 Eylea OD, Dr. Reynoso INJECTION OF EYE DRUG Right 08/10/2019 # 1 Lucentis 0.5mg OD, Dr. Reynoso INJECTION OF EYE DRUG Right 09/22/2019 #18 Eylea OD, INJECTION OF EYE DRUG Right 11/02/2019 # 19 Eylea OD, INJECTION OF EYE DRUG Right 12/14/2019 # 20 Eylea OD, Dr. Reynoso INJECTION OF EYE DRUG Right 02/08/2020 # 21 Eylea OD, Dr. Reynoso INJECTION OF EYE DRUG Right 03/28/2020 # 22 Eylea OD, Dr. Reynoso INJECTION OF EYE DRUG Right 05/09/2020 # 23 Eylea OD, Dr. Reynoso INJECTION OF EYE DRUG Right 06/15/2020 # 24 Eylea OD, INJECTION OF EYE DRUG Right 08/02/2020 # 25 Eylea OD, Dr. Reynoso INJECTION OF EYE DRUG Right 09/12/2020 # 26 Eylea OD, Dr. Reynoso INJECTION OF EYE DRUG Right 10/17/2020 # 27 Eylea OD, Dr. Reynoso INJECTION OF EYE DRUG Right 12/05/2020 # 28 Eylea OD, Dr. Reynoso INJECTION OF EYE DRUG Right 01/09/2021 # 29 Eylea OD, Dr. Reynoso INJECTION OF EYE DRUG Right 02/27/2021 # 30 Eylea OD, INJECTION OF EYE DRUG Right 04/18/2021 # 31 Eylea OD, INJECTION OF EYE DRUG Right 06/13/2021 #32 Eylea OD, Dr Reynoso INJECTION OF EYE DRUG Right 08/15/2021 # 33 Eylea OD, Dr. Reynoso INJECTION OF EYE DRUG Right 09/26/2021 # 34 Eylea OD, INJECTION OF EYE DRUG Right 11/11/2021 #[address] Reynoso INJECTION OF EYE DRUG Right 12/25/2021 # 36 Eylea OD, Dr. Reynoso INJECTION OF EYE DRUG Right 02/06/2022 # 37 Eylea OD, Dr. Reynoso INJECTION OF EYE DRUG Right 03/27/2022 # 38 Eylea OD, Dr. Reynoso INJECTION OF EYE DRUG Right 05/16/2022 # 39 Eylea OD, Dr. Reynoso INJECTION OF EYE DRUG Right 07/25/2022 # 40 Eylea OD, Dr. Reynoso INJECTION OF EYE DRUG Right 09/05/2022 # 41 Eylea OD, Dr. Reynoso INJECTION OF EYE DRUG Right 10/24/2022 # 42 Eylea OD, Dr. Reynoso INJECTION OF EYE DRUG Right 12/11/2022 #43 EYLEA OD; DR REYNOSO INJECTION OF EYE DRUG Right 01/29/2023 # 44 Eylea OD, Dr. Reynoso INJECTION OF EYE DRUG Right 03/26/2023 # 45 Eylea OD, Dr. Reynoso INJECTION OF EYE DRUG Right 05/26/2023 # 46 Eylea OD, Dr. Reynoso INJECTION OF EYE DRUG Right 08/04/2023 #47 Eylea OD; Dr Reynoso INJECTION OF EYE DRUG Right 09/29/2023 #48 Eylea OD, Dr. Reynoso INJECTION OF EYE DRUG Right 12/11/2023 # 49 Eyela OD, Dr. Reynoso INJECTION OF EYE DRUG Right 02/09/2024 # 50 Eylea OD, Dr. Reynoso INJECTION OF EYE DRUG Right 04/19/2024 # 51 Eylea OD, Dr. Reynoso INJECTION OF EYE DRUG Right 06/16/2024 #52 Eylea OD, Dr. Reynoso INJECTION OF EYE DRUG Right 08/16/2024 #53 Eylea OD, Dr. Reynoso INJECTION OF EYE DRUG Right 10/21/2024 #54 Eylea OD, Dr. Reynoso INJECTION OF EYE DRUG Right 12/16/2024 # 55 Eylea OD, Dr. Reynoso LIGATE/CUT OVIDUCT(S) 1974 MAMMOGRAM - BILATERAL 01/07/2005 birad 2 MAMMOGRAM - BILATERAL 06/23/2008 birad code 2 MAMMOGRAM SCREENING-BILATERAL 01/04/2004 bengin findings, yearly mammograms appropriate, birad code 2 MISCELLANEOUS ORDER ([facility] ONLY) Right 03/26/2017-03/26/2018 EYLEA OD CONSENT SIGNED, Dr. Angeles BYRNECELLANEOUS ORDER ([facility] ONLY) Right 04/07/2018-04/07/2019 Eylea OD consent signed, Dr. Angeles MELENDEZANEOUS ORDER ([facility] ONLY) ACT 112 SIGNED, Dr. Reynoso (12-30-2018) MISCELLANEOUS ORDER ([facility] ONLY) Right 04/20/2019-04/20/2020 Eylea OD consent signed, Dr.Cessna MISCELLANEOUS ORDER ([facility] ONLY) Right 08/10/2019-08/10/2020 LUCENTIS 0.5MG CONSENT OD SIGNED; DR ANGELES MAR ORDER ([facility] ONLY) Right 05/09/2020-05/09/2021 Eylea OD consent signed, OTHER Eylea OD Consent signed 06/13/2021-06/13/22 OTHER (INFORMATION) EYLEA OU CONSENT SIGNED Dr. Corbin (exp 07-25-23) OTHER (INFORMATION) CONSENT OU EYLEA exp 08/04/24; Dr Reynoso OTHER (INFORMATION) Eylea OU consent Dr. Corbin expires 08/16/2025 REMOVAL OF THYROID LESION 2000 REMOVE CATARACT, INSERT LENS PROSTH Right 02/02/2017 right EXTRACAPSULAR CATARACT REMOVAL WITH INTRAOCULAR LENS performed by Gabriel Acosta MD at OR [facility] REMOVE CATARACT, INSERT LENS PROSTH Left 02/09/2017 left EXTRACAPSULAR CATARACT REMOVAL WITH INTRAOCULAR LENS performed by Gabriel Acosta MD at OR [facility] CURRENT HOSPITAL MEDICATIONS: Note that discontinued and completed medications (per the MAR) continue to display for 24 hours. Ordered medications to be given in the future also display. Current Facility-Administered Medications Medication Dose Route Frequency Provider Acetaminophen (Tylenol) tab 975 mg 975 mg Oral Q8H Juliana Farrell CRNP [START ON 01/31/2025] chlorhexidine gluconate cloth 2 % pad External Daily 1000 Juliana Farrell CRNP Docusate Sodium (Colace) cap 100 mg 100 mg Oral BID(AM/PM) Juliana Farrell CRNP [COMPLETED] Iopamidol (Isovue 370) inj 80 mL 80 mL Intravenous Once Lise Merchant MD NSS infusion Intravenous Continuous Juliana Farrell CRNP ondansetron ODT (Zofran) tab 4 mg 4 mg On Tongue Q6H PRN Juliana Farrell CRNP Or ondansetron (Zofran) inj 4 mg 4 mg IV Push Q6H PRN Juliana Farrell CRNP oxyCODONE (Oxy IR) tab 5 mg 5 mg Oral Q4H PRN Juliana Farrell CRNP oxyCODONE (Roxicodone) oral syrup 2.5 mg 2.5 mg Oral Q4H PRN Julinaa Farrell CRNP senna (Senokot) 2 Tablet 2 Tablet Oral BID(AM/PM) Juliana Farrell CRNP Aflibercept (Eylea) intraviteal prefilled syringe 2 mg 2 mg Intravitreal PRN ROPivacaine (Naropin) inj 1.5 mg 1.5 mg Injection PRN Current Outpatient Medications Medication LORazepam 1 MG Oral Tablet (Ativan) Gabapentin 300 MG Oral Capsule (Neurontin) buPROPion HCl ER (XL) 300 MG Oral Tablet Extended Release 24 Hour (Wellbutrin XL) Mirtazapine 15 MG Oral Tablet (Remeron) Levothyroxine Sodium 125 MCG Oral Tablet (Levoxyl) Lisinopril 5 MG Oral Tablet (Prinivil) FLUoxetine HCl 40 MG Oral Capsule (PROzac) metFORMIN HCl ER 500 MG Oral Tablet Extended Release 24 Hour (Glucophage XR) Captifyuch Ultra In Vitro Strip (Glucose Blood) Atorvastatin Calcium 40 MG Oral Tablet (Lipitor) Clopidogrel Bisulfate 75 MG Oral Tablet (pLAVix) Alendronate Sodium 70 MG Oral Tablet (Fosamax) Hydrocortisone 2.5 % External Lotion Hydrocortisone 2 % External Lotion Sodium Chloride (Hypertonic) 5 % Ophthalmic Solution Vitamin D3 25 MCG (1000 UT) Oral Tablet (Vitamin D3) Acetaminophen ER 650 MG Oral Tablet Extended Release Multiple Vitamins-Minerals (PRESERVISION AREDS 2) Capsule ALLERGIES: Sertraline hcl, Simvastatin, and Sulfa antibiotics SOCIAL HISTORY: Social History Tobacco Use Smoking status: Never Smokeless tobacco: Never Vaping Use Vaping status: Never Used Substance Use Topics Alcohol use: Not Currently Comment: rare Drug use: No FAMILY HISTORY: Family History Problem Relation Name Age of Onset Eye Problems Father AMD Eye Problems Sister AMD Cancer Father lung Diabetes Father niddm Diabetes Mother iddm Diabetes Sister iddm Cancer Sister uterine ca Heart Disorder Sister Heart Disorder Mother chf Gastro-intestinal disorder Sister diverticulitis Heart Disorder Son fatal PR at age 49 No Past Hx Son Glaucoma Other Denies family hx Breast Cancer Grandmother (Maternal) REVIEW OF SYSTEMS: See HPI for pertinent positives and negatives, all other systems are negative. COLLARED: no BACKBOARD: no INTUBATED: no PHYSICAL EXAM: Most Recent Vital Signs: BP: 117 mmHg/64 mmHg (01/30/250) Pulse: 70 (01/30/25 175) Resp: 14 (01/30/251750) Temp: 37.11 C (01/30/251702) Temp Summary: Temp Min: 37.1 °C (98.8 °F) Max: 37.1 °C (98.8 °F) SpO2: 96 % (01/30/251750) O2 flow rate: Supplemental O2 Delivery: Weight: 91.2 kg (201 lb 1 oz) (01/30/251709) Rhythm: NSR Head: normocephalic / atraumatic Eyes: pupils 3 mm, bilaterally reactive to light, extraocular muscles intact ENT: oropharynx clear, moist mucous membranes, dentures in place Neck: supple, non-tender, trachea midline Respiratory: clear to auscultation bilaterally Cardiovascular: regular rate and rhythm, palpable peripheral pulses present Abdomen: soft, non-tender, non-distended Back: no tenderness across thoracic / lumbar spine, no stepoffs or deformities Pelvis: non-tender, stable to anterior-posterior/lateral compression Rectal: deferred Genitourinary: normal female genitalia Musculoskeletal: no palpable long bone deformities, motor / sensation grossly intact, strength 5/5 in all extremities Skin: grossly intact; large hematoma to right hip, right eyebrow hematoma Neurologic: GCS Adult: eyes open 4 = spontaneous, best verbal response 4 = disoriented, inappropriate, cries, best motor response 6 = obeys commands appropriate for age LABS: Labs reviewed as indicated below: Abnormal Labs Reviewed CBC - Abnormal; Notable for the following components: Result Value WBC 12.73 (*) All other components within normal limits DIFFERENTIAL, AUTOMATED - Abnormal; Notable for the following components: WBC 12.73 (*) Neutrophils % 78.2 (*) Lymphocytes % 13.2 (*) Absolute Neutrophils 9.96 (*) All other components within normal limits IMAGING: No imaging results in the last 3 days eFAST Ultrasound: negative CONSULTS: 1. 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 I saw and evaluated the patient on date ofe referenced in note and have performed the following medically appropriate history and/or exam. I have reviewed and independently interpreted the history, physical, chart, labs, and imaging. I was present for the level 2 trauma alert. There was pre-hospital notification. CC: Fall 79 yo on Plavix who was in the [employer] parking lot when she bent down to pick something up and fell. Unknown if there was LOC. Accident occurred around 11:00. She presented to [facility] where CT scans revealed an SAH and SDH and a large right hip hematoma with concern for active extravasation. There were also multiple healing right rib fractures (on our exam she did have tenderness and ecchymosis). She was transferred to [facility] [place] as a level 2 trauma alert Upon arrival standard ATLS protocol was followed. Airway was intact. Breath sounds equal bilaterally. Palpable distal pulses. GCS 14. Chest was stable (+) right chest wall tenderness and small amount of ecchymosis Pelvis was stable and nontender. Abdomen was soft, nondistended and nontender. (+) Right lateral thigh tenderness with overlying ecchymosis and large palpable hematoma No cervical, thoracic, or lumbar tenderness, no stepoffs. (+) Right eye/brow hematoma and lac approximated with sutures eFAST: Negative CXR: Negative for acute injuries Given time of prior CTs, she was sent for her repeat CTH, and at that time CTA head and neck were completed. These showed an increase size in the SDH. Keppra was administered and binder placed over hips/thigh. Multiple extremity x-rays were obtained. Admission Screening Labs: - Ethanol: Negative - Tox screen: PENDING - Admission urinalysis: PENDING - 25-Hydroxy Vitamin D: n/a Pertinent PMHx: Hx stroke, mild vascular neurocognitive disorder, HTN, HLD, BPPV, uterine fibroid, leiomyoma, DM2, hypothyroidism, cataracts, macular degeneration, osteoporosis, RLS, RACHEL, MDD INJURY COMPLEX / HOSPITAL ISSUES: All injuries are traumatic in etiology - Fall - Small parafalcine SDH - Scattered trace SAH - Right eye/brow hematoma and lac - Large right thigh hematoma with concern for active extravasation - Right intra-articular distal radius fracture - Widening of scapholunate interval - Right knee contusion - Multiple healing right rib fractures PLAN: Neuro: - Small parafalcine SDH - Scattered trace SAH - Neurosurgery consulted - Preliminary recommendations noted, f/u final recs - Additional repeat CTH in 3 hours (initial repeat showed increased size of SDH) - Keppra 500 mg BID x 7 days - Neuro checks q1hr - HOB > 30 degrees - Speech cognitive evaluation - Analgesia: Scheduled Tylenol 975 mg, Oxy IR 2.5/5 mg PRN - Recurrent headaches after stroke (per Neuro notes): YEAST PUMPER Gabapentin 300 mg qhs, start tomorrow - Sedation: n/a - Mild vascular neurocognitive disorder - MDD, RACHEL - YEAST PUMPER on Ativan 0.5 mg q8hrs PRN, last filled in August, hold at this time - YEAST PUMPER Wellbutrin XL 300 mg daily - YEAST PUMPER Prozac 40 mg daily - RLS: YEAST PUMPER Remeron 15 mg qhs - Hx CVA: Hold YEAST PUMPER Plavix HEENT: - Macular degeneration: YEAST PUMPER Preservision AREDS - YEAST PUMPER Sodium chloride 5% solution Resp: - IS, pulmonary hygiene, respiratory driven protocol Cardiovascular: - Baseline EKG - HTN: - Hold YEAST PUMPER lisinopril 5 mg daily - HLD: YEAST PUMPER atorvastatin 40 mg daily GI: - Diet: NPO except meds - GI ppx: n/a - Bowel regimen: Senna and colace BID Renal/Metabolic/Fluids: - NSS at 75 ml/hr Endocrine: - DM2: - SSI - Hold YEAST PUMPER metformin ER 1000 mg BID - Hypothyroidism: YEAST PUMPER Levothyroxine 125 mcg daily Infectious Disease: - F/u admission screening labs Heme: - VTE ppx: SCDs, Hold chemoprophylaxis pending stable CTH Musculoskeletal/Integumentary/Rheum: - Right intra-articular distal radius fracture - Widening of scapholunate interval - Right knee contusion - Ortho consult - f/u recommendations, for now will make NWB RUE - Large right thigh hematoma with concern for active extravasation - Binder to apply pressure - CBC q6hrs - Right eye/brow hematoma and lac - Suture repaired at OSH - PT/OT - Osteoporosis: Hold YEAST PUMPER Fosamax - YEAST PUMPER Vitamin D3 25 mcg daily Lines/Drains/Tubes: - Maintain 2 large bore IVs Incidentals: - n/a Misc: - Attempt to obtain additional information from family regarding baseline status and any additionalfalls, especially given the healing rib fractures and ecchymosis of varying ages. Dispo: - Admit to Trauma, ICU level of care Was critical care rendered? Yes. I have provided critical care diagnostic services for neurologic failure, severe/multiple trauma and therapeutic services with neurological monitoring and treatment for this patient on the date referenced above. Time devoted to patient care services described in this note equal: 50 minutes total critical care time exclusive of time spent performing procedures or time spent by another provider or resident. Lise Merchant MD, FACS Trauma, Emergency General Surgery, and Critical Care Principal Problem: Multiple injuries due to trauma (POA: Yes) Active Problems: Hypothyroidism (POA: Yes) Restless leg syndrome (POA: Yes) Type 2 diabetes mellitus with hemoglobin A1c goal of less than 7.0% (HCC) (POA: Yes) Overview: Per Diabetes Taxonomy. ICD-10 update of inactive term Dyslipidemia, goal LDL below 100 (POA: Yes) Overview: Per Lipid Taxonomy. 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, recurrent severe without psychotic features (HCC) (POA: Yes) Essential (primary) hypertension (POA: Yes) Generalized anxiety disorder (POA: Yes) Fall (POA: Yes) Macular degeneration (POA: Yes) Laceration of brow without complication (POA: Yes) Overview: Right eye/brow laceration SAH (subarachnoid hemorrhage) (HCC) (POA: Yes) SDH (subdural hematoma) (HCC) (POA: Yes) Hematoma of right thigh (POA: Yes) Closed fracture of distal end of right radius (POA: Yes) Contusion of right knee (POA: Yes) Obesity (POA: Yes) POA = Present On Admission documented in this encounter Procedure Notes * Milad Malhotra DO - 01/30/2025 8:32 PM EDTAssociated Order(s): EKG REASON FOR STUDY: Screening for cardiovascular condition CONCLUSIONS: Sinus rhythm with Premature atrial complexes When compared with ECG of 30-Jan-2025 17:49, Premature atrial complexes are now Present Ventricular Rate: 65 Atrial Rate: 65 MN Interval: 184 QRS Duration: 84 QT/QTc: 450/468 ms P-R-T [place]: 0 : 5 : 16 degrees * Shahbaz Grace MD - 01/30/2025 5:49 PM EDTAssociated Order(s): EKG REASON FOR STUDY: Screening for cardiovascular condition CONCLUSIONS: Sinus rhythm with sinus arrhythmia with 1st degree AV block Nonspecific ST abnormality When compared with ECG of 30-Apr-2018 10:05, Questionable change in The axis Nonspecific T wave abnormality now evident in Inferior leads Ventricular Rate: 69 Atrial Rate: 69 MN Interval: 210 QRS Duration: 88 QT/QTc: 446/477 ms P-R-T [place]: 14 : 6 : 24 degrees documented in this encounter Consult Notes * Gibran Amin MD - 02/01/2025 2:22 PM EDTAssociated Order(s): REHAB CONSULT IP Physical Medicine & Rehabilitation [facility] [place]-[address] [id number] Name: Allie Diaz Location: [facility] [place] G503/[id number] Date: 02/01/2025 Time: 2:22 PM Consulting Service: PM&R Reason for Consultation: Disposition Admission Date: 01/30/2025 Attending Physician/Provider: Amber Rebolledo MD Primary Care Physician/Provider: Janice Freeman PA-C Admitting Diagnosis: Principal Problem: Multiple injuries due to trauma Active Problems: Hypothyroidism Restless leg syndrome Type 2 diabetes mellitus with hemoglobin A1c goal of less than 7.0% (HCC) Dyslipidemia, goal LDL below 100 History of CVA (cerebrovascular accident) 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 * Subjective HPI: Allie Diaz is a 79 year old female who was admitted to [facility] [place] on 01/30/25 after falling and hittingher head. Pt found to have multiple injuries including: SDH, SAH, right thigh hematoma, R distal radius fx, R knee contusion, multiple R rib fx. Pt was seen by neurosurgery and ortho. No acute surgical intervention. Pt is NWB in the RUE. Pt was seen by therapy yesterday and walked 3' min A with RW. She is Jose Eduardo with most tasks. Pt reports some R wrist and leg pain. Pt reports some FLOREZ but denies any dizziness, numbness/tinglng. Pt denies any CP, SOB, NV, FC. PREVIOUS FUNCTIONAL STATUS: Prior Level of Function Reported by: Patient (01/31/25957) Ambulation: Ambulatory without device (01/31/25957) Grooming: Independent (01/31/25957) Bathing: Independent (01/31/25957) Dressing: Independent (01/31/25957) Feeding: Independent (01/31/25957) Toileting: Independent (01/31/25957) Meal Prep: Independent (01/31/25957) Homemaking: Independent (01/31/25957) Shopping: Independent (01/31/25957) Medication Management: Independent (01/31/25957) Money Management: Independent (01/31/25957) Driving: Yes (01/31/25957) Durable Medical Equipment at home: No device (01/31/25957) Home Set-up and Support System: Lives with: Alone (01/31/25957) Assistance available: Yes (limited. Sister lives 15 minutes away) (01/31/25957) Dwelling type: Apartment (01/31/25957) Entry steps: 1 (01/31/25957) Inside steps: Elevator (01/31/25957) Bedroom location: 1st floor (01/31/25957) Bath location: 1st floor shower (01/31/25957) Assistive Devices Used: Devices at home: No device (01/31/25956) Recent Physical Therapy Assessment: P.T. Bed Mobility Supine-Sit: Supervision (with HOB elevated and verbal cues to maintain NWB RUE) (01/31/25956) Transfers Sit-Stand: Minimal Assistance (verbal cues throughout to maintain NWB RUE) (01/31/25956) Stand-Sit: Minimal Assistance (01/31/25956) Recent Occupational Therapy Assessments: Self Care Feeding: Supervision (Please comment) (setup) (01/31/25957) Grooming: Supervision (Please comment) (wash face) (01/31/25957) Dressing Upper Body: Moderate Assistance (change gown) (01/31/25957) Lower Body: Moderate Assistance (socks with use of foot stool) (01/31/25957) Functional Ambulation Assistive Device: Rolling walker (01/31/25957) Distance in feet:: 3 (01/31/25957) Level of Assistance: Minimal Assistance (01/31/25957) Bed Mobility Supine-Sit: Supervision (Please comment) (01/31/25957) OT Transfers Sit-Stand: Minimal Assistance (01/31/25957) Stand-Sit: Minimal Assistance (01/31/25957) Bed-Chair: Minimal Assistance (01/31/25957) CURRENT LEVEL OF FUNCTION: Weight Bearing Status: Non-weight bearing;RUE (team checking with ortho to see if pt can WB throughelbow and shoulder for platform walker use.) (01/31/25956) Bed Mobility: Bed Mobility Supine-Sit: Supervision (Please comment) (01/31/25957) Transfer: OT Transfers Sit-Stand: Minimal Assistance (01/31/25957) Stand-Sit: Minimal Assistance (01/31/25957) Bed-Chair: Minimal Assistance (01/31/25957) Ambulation: Functional Ambulation Assistive Device: Rolling walker (01/31/25957) Distance in feet:: 3 (01/31/25957) Level of Assistance: Minimal Assistance (01/31/25957) Past Medical History: Diagnosis Date Benign neoplasm [...] 12/18/2005 hyperplastic 3 mm polyp, Dr Tinoco, [facility], repeat 2008 DEXA SCAN/BONE MINERAL AXIAL 2002 ok repeat in 2006 DIABETIC EYE EXAM 08/02/2012 no diabetic retinopathy FLEX SIG, GI REFERRAL OP 04/05/1999 polyps; diverticulitis INFORMATION labor and del x 3 INJECTION OF EYE DRUG Right 03/26/2017 # 1 Eylea OD, Dr. Reynoso INJECTION OF EYE DRUG Right 04/29/2017 # 2 Eylea OD, INJECTION OF EYE DRUG Right 07/23/2017 # 3 Eylea OD, Dr. Reynoso INJECTION OF EYE DRUG Right 08/26/2017 # 4 Eylea OD, INJECTION OF EYE DRUG Right 10/22/2017 # 5 Eylea OD, Dr. Reynoso INJECTION OF EYE DRUG Right 12/24/2017 # 6 Eylea OD, INJECTION OF EYE DRUG Right 01/27/2018 # 7 Eylea OD, Dr. Reynoso INJECTION OF EYE DRUG Right 03/04/2018 # 8 Eylea OD, Dr. Reynoso INJECTION OF EYE DRUG Right 04/07/2018 # 9 Eylea OD, Dr. Reynoso INJECTION OF EYE DRUG Right 05/13/2018 # 10 Eylea OD, INJECTION OF EYE DRUG Right 06/23/2018 # 11 Eylea OD, Dr. Reynoso INJECTION OF EYE DRUG Right 08/25/2018 # 12 Eylea OD, INJECTION OF EYE DRUG Right 10/27/2018 # 13 Eylea OD, Dr. Reynoso INJECTION OF EYE DRUG Right 12/30/2018 # 14 Eylea OD, INJECTION OF EYE DRUG Right 02/23/2019 # 15 Eylea OD, Dr. Reynoso INJECTION OF EYE DRUG Right 04/20/2019 # 16 Eylea OD, INJECTION OF EYE DRUG Right 06/15/2019 # 17 Eylea OD, Dr. Reynoso INJECTION OF EYE DRUG Right 08/10/2019 # 1 Lucentis 0.5mg OD, Dr. Reynoso INJECTION OF EYE DRUG Right 09/22/2019 #18 Eylea OD, INJECTION OF EYE DRUG Right 11/02/2019 # 19 Eylea OD, INJECTION OF EYE DRUG Right 12/14/2019 # 20 Eylea OD, Dr. Reynoso INJECTION OF EYE DRUG Right 02/08/2020 # 21 Eylea OD, Dr. Reynoso INJECTION OF EYE DRUG Right 03/28/2020 # 22 Eylea OD, Dr. Reynoso INJECTION OF EYE DRUG Right 05/09/2020 # 23 Eylea OD, Dr. Reynoso INJECTION OF EYE DRUG Right 06/15/2020 # 24 Eylea OD, INJECTION OF EYE DRUG Right 08/02/2020 # 25 Eylea OD, Dr. Reynoso INJECTION OF EYE DRUG Right 09/12/2020 # 26 Eylea OD, Dr. Reynoso INJECTION OF EYE DRUG Right 10/17/2020 # 27 Eylea OD, Dr. Reynoso INJECTION OF EYE DRUG Right 12/05/2020 # 28 Eylea OD, Dr. Reynoso INJECTION OF EYE DRUG Right 01/09/2021 # 29 Eylea OD, Dr. Reynoso INJECTION OF EYE DRUG Right 02/27/2021 # 30 Eylea OD, INJECTION OF EYE DRUG Right 04/18/2021 # 31 Eylea OD, INJECTION OF EYE DRUG Right 06/13/2021 #32 Eylea OD, Dr Reynoso INJECTION OF EYE DRUG Right 08/15/2021 # 33 Eylea OD, Dr. Reynoso INJECTION OF EYE DRUG Right 09/26/2021 # 34 Eylea OD, INJECTION OF EYE DRUG Right 11/11/2021 #[address]ylea [address] Reynoso INJECTION OF EYE DRUG Right 12/25/2021 # 36 Eylea OD, Dr. Reynoso INJECTION OF EYE DRUG Right 02/06/2022 # 37 Eylea OD, Dr. Reynoso INJECTION OF EYE DRUG Right 03/27/2022 # 38 Eylea OD, Dr. Reynoso INJECTION OF EYE DRUG Right 05/16/2022 # 39 Eylea OD, Dr. Reynoso INJECTION OF EYE DRUG Right 07/25/2022 # 40 Eylea OD, Dr. Reynoso INJECTION OF EYE DRUG Right 09/05/2022 # 41 Eylea OD, Dr. Reynoso INJECTION OF EYE DRUG Right 10/24/2022 # 42 Eylea OD, Dr. Reynoso INJECTION OF EYE DRUG Right 12/11/2022 #43 EYLEA OD; DR REYNOSO INJECTION OF EYE DRUG Right 01/29/2023 # 44 Eylea OD, Dr. Reynoso INJECTION OF EYE DRUG Right 03/26/2023 # 45 Eylea OD, Dr. Reynoso INJECTION OF EYE DRUG Right 05/26/2023 # 46 Eylea OD, Dr. Reynoso INJECTION OF EYE DRUG Right 08/04/2023 #47 Eylea OD; Dr Reynoso INJECTION OF EYE DRUG Right 09/29/2023 #48 Eylea OD, Dr. Reynoso INJECTION OF EYE DRUG Right 12/11/2023 # 49 Eyela OD, Dr. Reynoso INJECTION OF EYE DRUG Right 02/09/2024 # 50 Eylea OD, Dr. Reynoso INJECTION OF EYE DRUG Right 04/19/2024 # 51 Eylea OD, Dr. Reynoso INJECTION OF EYE DRUG Right 06/16/2024 #52 Eylea OD, Dr. Reynoso INJECTION OF EYE DRUG Right 08/16/2024 #53 Eylea OD, Dr. Reynoso INJECTION OF EYE DRUG Right 10/21/2024 #54 Eylea OD, Dr. Reynoso INJECTION OF EYE DRUG Right 12/16/2024 # 55 Eylea OD, Dr. Reynoso LIGATE/CUT OVIDUCT(S) 1974 MAMMOGRAM - BILATERAL 01/07/2005 birad 2 MAMMOGRAM - BILATERAL 06/23/2008 birad code 2 MAMMOGRAM SCREENING-BILATERAL 01/04/2004 bengin findings, yearly mammograms appropriate, birad code 2 MISCELLANEOUS ORDER ([facility] ONLY) Right 03/26/2017-03/26/2018 EYLEA OD CONSENT SIGNED, Dr. Reynoso MISCELLANEOUS ORDER ([facility] ONLY) Right 04/07/2018-04/07/2019 Eylea OD consent signed, Dr. Angeles MELENDEZANEOUS ORDER ([facility] ONLY) ACT 112 SIGNED, Dr. Reynoso (12-30-2018) MISCELLANEOUS ORDER ([facility] ONLY) Right 04/20/2019-04/20/2020 Eylea OD consent signed, MISCELLANEOUS ORDER ([facility] ONLY) Right 08/10/2019-08/10/2020 LUCENTIS 0.5MG CONSENT OD SIGNED; DR ANGELES MAR ORDER ([facility] ONLY) Right 05/09/2020-05/09/2021 Eylea OD consent signed, OTHER Eylea OD Consent signed /Cristóbal 06/13/2021-06/13/22 OTHER (INFORMATION) EYLEA OU CONSENT SIGNED Dr. Reynoso/Cristóbal (exp 07-25-23) OTHER (INFORMATION) CONSENT OU EYLEA exp 08/04/24; Dr Reynoso OTHER (INFORMATION) Eylea OU consent Dr. Reynoso/Cristóbal expires 08/16/2025 REMOVAL OF THYROID LESION 1999 REMOVE CATARACT, INSERT LENS PROSTH Right 02/02/2017 right EXTRACAPSULAR CATARACT REMOVAL WITH INTRAOCULAR LENS performed by Gabriel Acosta MD at OR [facility] REMOVE CATARACT, INSERT LENS PROSTH Left 02/09/2017 left EXTRACAPSULAR CATARACT REMOVAL WITH INTRAOCULAR LENS performed by Gabriel Acosta MD at OR [facility] Social History Tobacco Use Smoking status: Never Smokeless tobacco: Never Vaping Use Vaping status: Never Used Substance Use Topics Alcohol use: Not Currently Comment: rare Drug use: No Family History Problem Relation Name Age of Onset Eye Problems Father AMD Eye Problems Sister AMD Cancer Father lung Diabetes Father niddm Diabetes Mother iddm Diabetes Sister iddm Cancer Sister uterine ca Heart Disorder Sister Heart Disorder Mother chf Gastro-intestinal disorder Sister diverticulitis Heart Disorder Son fatal PR at age 49 No Past Hx Son Glaucoma Other Denies family hx Breast Cancer Grandmother (Maternal) Review of patient's allergies indicates: Allergen Reactions Sertraline Hcl Leg pain Simvastatin Muscle pain Sulfa Antibiotics rash Current Facility-Administered Medications Medication Dose Route Frequency Provider atorvaSTATin (Lipitor) tab 40 mg 40 mg Oral Daily(AM) Jayy Brock DO buPROPion extended release (SR) (Wellbutrin SR) tab 150 mg 150 mg Oral BID(AM/PM) Jayy Brock DO dextrose 50% inj 25 mL 25 mL IV Push PRN Jayy Brock DO dextrose 50% inj 50 mL 50 mL IV Push PRN Jayy Brock DO FLUoxetine (PROzac) cap 40 mg 40 mg Oral Daily(AM) Jayy Brock DO Gabapentin (Neurontin) cap 300 mg 300 mg Oral HS Jayy Brock DO glucagon (Glucagen) inj 1 mg 1 mg Intramuscular PRN Jayy Brock DO Glucose (Glutose 15) 40 % gel 15 g of glucose 15 g of glucose Oral PRN Jayy Brock DO Glucose (Glutose 15) 40 % gel 30 g of glucose 30 g of glucose Oral PRN Jayy Brock DO glucose chew tab 16 g 16 g Oral PRN Jayy Brock DO hEParin inj 5,000 Units 5,000 Units Subcutaneous Q8H Joanie Zamora DO insulin aspart (NovoLOG) inj Subcutaneous With Meals and HS Jayy Brock DO levETIRAcetam (Keppra) tab 500 mg 500 mg Oral BID(AM/PM) Joanie Zamora DO Levothyroxine Sodium (Levoxyl) tab 125 mcg 125 mcg Oral Daily 0630 Jayy Brock DO LORAzepam (Ativan) tab 0.5 mg 0.5 mg Oral Q8H PRN Jayy Brock DO Mirtazapine (Remeron) tab 15 mg 15 mg Oral HS Jayy Brock DO Acetaminophen (Tylenol) tab 975 mg 975 mg Oral Q8H Juliana Farrell CRNP chlorhexidine gluconate cloth 2 % pad External Daily 1000 Juliana Farrell CRNP Docusate Sodium (Colace) cap 100 mg 100 mg Oral BID(AM/PM) Juliana Farrell CRNP ondansetron ODT (Zofran) tab 4 mg 4 mg On Tongue Q6H PRN Juliana Farrell CRNP Or ondansetron (Zofran) inj 4 mg 4 mg IV Push Q6H PRN Juliana Farrell CRNP oxyCODONE (Oxy IR) tab 5 mg 5 mg Oral Q4H PRN Juliana Farrell CRNP oxyCODONE (Roxicodone) oral syrup 2.5 mg 2.5 mg Oral Q4H PRN Juliana Farrell CRNP senna (Senokot) 2 Tablet 2 Tablet Oral BID(AM/PM) Juliana Farrell CRNP Objective PHYSICAL EXAM: BP: 114 mmHg/62 mmHg (02/01/25 1300) Pulse: 68 (02/01/25 1300) Resp: 15 (02/01/25 1300) Temp: 36.39 C (02/01/25 1400) Temp Summary: Temp Min: 36 °C (96.8 °F) Max: 37 °C (98.6 °F) SpO2: 97 % (02/01/25 1300) O2 flow rate: Supplemental O2 Delivery: Room Air, None (02/01/25 1400) Vital Signs Last 24 Hours: BP Min: 84/49 Max: 129/67 Pulse Av.8 Min: 50 Max: 78 Most Recent Temperature Av.4 C Min: 36 C Max: 37 C Resp Av.2 Min: 13 Max: 23 General: NAD; resting comfortably Respiratory: non-labored breathing on room room air Skin: warm and dry : No Melton catheter present Psychiatric: appropriate mood MSK/Extremities: no edema Neurologic: 1/3 in delayed recall; Mental Status & Orientation: awake, AOx1 Cranial Nerves: CN 2-12 grossly intact Motor: RUE strength not tested but NVI Strength is 4/5 in the LUE Strength is 4/5 in the BLE Muscle Tone: normal Sensory: intact to light touch DATA REVIEW: LABS: Recent Results (from the past 24 hours) GLUCOSE METER, POINT OF CARE Collection Time: 01/31/25 5:24 PM Result Value Ref Range Glucose - POCT 133 (H) 70 - 120 mg/dL GLUCOSE METER, POINT OF CARE Collection Time: 01/31/25 9:56 PM Result Value Ref Range Glucose - POCT 158 (H) 70 - 120 mg/dL BASIC METABOLIC PANEL Collection Time: 02/01/25 6:34 AM Result Value Ref Range BUN 20 6 - 20 mg/dL CREATININE 0.9 0.5 - 1.0 mg/dL EGFR 65 >=60 mL/min SODIUM 142 135 - 146 mmol/L POTASSIUM 3.8 3.5 - 5.1 mmol/L CHLORIDE 107 98 - 107 mmol/L CO2 24 22 - 32 mmol/L ANION GAP 11 7 - 15 mmol/L GLUCOSE 102 70 - 120 mg/dL CALCIUM 8.2 (L) 8.4 - 10.2 mg/dL MAGNESIUM Collection Time: 02/01/25 6:34 AM Result Value Ref Range Magnesium 2.1 1.5 - 2.6 mg/dL PHOSPHORUS Collection Time: 02/01/25 6:34 AM Result Value Ref Range Phosphorus 3.6 2.5 - 4.8 mg/dL CBC Collection Time: 02/01/25 6:34 AM Result Value Ref Range WBC 7.10 4.00 - 10.80 K/uL RBC 3.63 3.85 - 5.15 M/uL HGB 10.2 (L) 12.0 - 15.3 g/dL HCT 33.0 (L) 36.0 - 45.2 % MCV 90.9 81.5 - 97.5 fL MCH 28.1 27.0 - 34.0 pg MCHC 30.9 32.0 - 36.0 g/dL RDW 14.4 11.5 - 15.5 % PLT 169 140 - 400 K/uL MPV 9.7 6.6 - 11.1 fL nRBCs 0 <=0 /100 WBCs 25-HYDROXY VITAMIN D Collection Time: 02/01/25 6:34 AM Result Value Ref Range 25-Hydroxy Vitamin D 21 >19 ng/mL GLUCOSE METER, POINT OF CARE Collection Time: 02/01/25 8:13 AM Result Value Ref Range Glucose - POCT 101 70 - 120 mg/dL GLUCOSE METER, POINT OF CARE Collection Time: 02/01/25 11:29 AM Result Value Ref Range Glucose - POCT 100 70 - 120 mg/dL ASSESSMENT: Principal Problem: Multiple injuries due to trauma (POA: Yes) Active Problems: Hypothyroidism (POA: Yes) Restless leg syndrome (POA: Yes) Type 2 diabetes mellitus with hemoglobin A1c goal of less than 7.0% (HCC) (POA: Yes) Overview: Per Diabetes Taxonomy. ICD-10 update of inactive term Dyslipidemia, goal LDL below 100 (POA: Yes) Overview: Per Lipid Taxonomy. 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, recurrent severe without psychotic features (HCC) (POA: Yes) Essential (primary) hypertension (POA: Yes) Generalized anxiety disorder (POA: Yes) Fall (POA: Yes) Macular degeneration (POA: Yes) Laceration of brow without complication (POA: Yes) Overview: Right eye/brow laceration SAH (subarachnoid hemorrhage) (HCC) (POA: Yes) SDH (subdural hematoma) (HCC) (POA: Yes) Hematoma of right thigh (POA: Yes) Closed fracture of distal end of right radius (POA: Yes) Contusion of right knee (POA: Yes) Obesity (POA: Yes) POA = Present On Admission Allie Diaz is a(n) 79 year old female PMHx stroke, mild vascular neurocognitive disorder, HTN,HLD, BPPV, uterine fibroid, leiomyoma, DM2, hypothyroidism, cataracts, macular degeneration, osteoporosis, RLS, RACHEL who presents with mobility and ADL deficits secondary to TBI and wrist fx after fall PLAN: Disposition recommendation: IRF - pt's symptoms improving she will be able to participate and tolerate 3hrs of therapy in an acute rehab setting Medical Complexity: Patient does require physician oversight at least 3 times per week, including, but not limited to: Neuro checks due to ICH and confusion Electrolyte abnormalities requiring frequent labs Bowel and bladder management Pain management DVT prophylaxis Wound care Patient does require 24/7 registered nursing care. Patient does require at least 2 therapeutic disciplines of PT, OT, and/or [employer] services for at least3 hours per day, 5 days per week in order to maximize functional independence in the safest manner. Patient is expected to achieve individualized functional improvement goals within the following reasonable timeframe - 2 weeks There is reasonable expectation patient will discharge to the community post- acute rehabilitation admission. Patient is expected to be able to follow commands, tolerate, actively & willingly participate at least 3 hours of therapy per day for at least 5 days per week in/upon improvement of their currentclinical condition. Patient's Insurance: Payor: [facility] / Plan: [facility] PREFERRED COMPLETE RX MP-QD / Product Type: *No Product type* / Please contact service via REacht Role for further questions or concerns: PMRRESIDENTCONSULTS * Aby [place] CRNP - 01/31/2025 4:20 PM EDTAssociated Order(s): RHEUMATOLOGY CONSULT IP CONSULT - [facility] ([facility] - baseline visit REASON FOR CONSULT: Other fragility fracture - wrist fracture and current Fosamax use 01/31/2025 HPI: Allie Diaz is a 79 year old female who is seen in consultation at the request of Ortho/Spine for evaluation of low bone density, osteoporosis and fracture risk reduction. She has a past medical history of RLS, hypothyroidism, DMT2, mild vascular neurocognitive disorder, MDD, hypertension, RACHEL, SAH, SDH, stroke with residual right sided weakness, osteoporosis. She had a fall in the [employer] parking lot. Presented to the ED and found to have a distal radius fracture, SAH, and SDH. Ortho was consulted for wrist fracture and recommended conservative measures. NSGY consulted for SDH and SAH. She has been treating with Fosamax from 11/2020-present. DXA scan from 11/2022 with low bone mass. History of spinal compression fracture listed on chart. BONE HEALTH SUMMARY: Family History Fx: Denies Personal History Fx: Wrist Current Smoker: Former Chronic Glucocorticoid use: Denies Rheumatoid Arthritis: Denies Alcohol 3 or more per day: Denies Menopause: 51 Height: ? Activity: ? Falls: Yes Assistive device: ? Reflux: ? Osteoporosis past medical history: +stroke Osteoporosis past surgical history: Denies bariatric surgery, hip/spine surgery, parathyroidectomy Review of systems: Constitutional: no weight loss, fever, chills Eyes: no erythema, dry eyes, blurred vision ENT: no hearing loss or congestion, no oral or nasal ulcers Resp: no wheezing or shortness of breath Cardiac: no chest pain or dyspnea on exertion GI: no heartburn Musculoskeletal: no muscle or joint pain Neuro: no memory loss Psych: no insomnia, no depression Heme: no bleeding or bruising Endo: no unplanned weight change Skin: no rash PHYSICAL EXAM: BP 114/63 | Pulse 66 | Temp 36.4 °C (97.5 °F) (Tympanic) | Resp 19 | Ht 1.651 m (5' 5") | Wt 89.5kg (197 lb 5 oz) | SpO2 99% | BMI 32.83 kg/m² | BSA 2.03 m² General: Well appearing, in no distress. Eyes: Conjunctiva clear, sclera non-icteric. HENT: MMM. Neck: No visible lesions Heart: Symmetric chest expansion. Lungs: No cough. Neuro: Alert. Skin: No rashes. MSK exam: Moving all extremities. IMAGING/ DXA HISTORY: X ray: closed distal radius fracture DXA 11/2022: Lumbar spine: INVALID Left femoral neck: 0.662 gms/cm2 T-score: -1.7 FRAX not indicated. LABS: I have personally reviewed labs below: 01/31/2025 Cr 0.8, Calcium 8.1, phosphorus 3.8 IMPRESSION: Osteoporosis: This is a 79 year old female with osteoporosis currently treating with Fosamax who presents with a fragility fracture of the wrist. Bone health history is limited due to patient's cognitive status. Per chart review, she may have had a compression fracture of the spine, but no imaging to corroborate. Appears she has been on Fosamax since 11/2020-present. DXA scan from 11/2022 with low bone mass. Would recommend repeating DXA scan and switching mechanism of action for pharmacotherapy. Would stop Fosamax and consider Prolia. She lives in [facility], so will have her follow up withour colleagues there. Would recommend checking a PTH at follow up. PLAN: Follow up in [facility] within 6-8 weeks (we will facilitate) Check 25 oh vit d DXA scan (we will order) Considering stopping Fosamax and transitioning to Prolia (defer to follow up [facility] visit) Check PTH at follow up visit to rule out HPT given wrist fracture. I have discussed with Dr. Melchor. I spent a total of 40-54 minutes (exact time 45 mins) on the date of service in preparation, delivery, and documentation of the care provided to Allie Diaz excluding any time spent in the performance of separately billed services or time spent by another provider/QHP. [facility] Cosigned by Michaelle Melchor MD at 02/01/2025 9:32 AM EDT Associated attestation - Michaelle Melchor MD - 02/01/2025 9:32 AM EDT I have reviewed the advanced practitioner's documentation on the date of service referenced in note, and I agree with, and take responsibility for the plan of care. I spent a total of 10 minutes coordinating, documenting, and providing care for this patient excluding time spent in the performance of separately billed services or time spent by another provider/QHP. * Leanna Jensen, OTR/L - 01/31/2025 9:58 AM EDTAssociated Order(s): ADULT OCCUPATIONAL THERAPY CONSULT IP GENERAL EVALUATION - Occupational Therapy [address] [id number] Name: Allie Diaz Location: [facility] [place] G503/A Date: 01/31/2025 Time: 957 Allie Diaz is a 79 year old female. Patient Status: Inpatient Insurance: Payor: [facility] GOLD Plan: [facility] PREFERRED COMPLETE RX MP-QD Product Type: *No Product type* Patient Seen: at bedside, nursing cleared patient for therapy Patient Identified By: Name, ID Band and Date Diagnosis: tSAH, SDH, R distal radius fracture (01/31/25957) Status of treatment: Evaluation completed (01/31/25957) Orders: OT evaluation and treatment (01/31/25957) Weight Bearing Status: Non-weight bearing;RUE (team is checking with ortho if patient is able to weight bear through elbow to utilize a platform walker) (01/31/25957) Precautions: Alarms;Falls;Safety (NWB R UE, abdominal binder, expressive aphasia) (01/31/25957) Total Treatment Time: 24 (01/31/25957) Past Medical History: Past Medical History: Diagnosis [...] 12/18/2005 hyperplastic 3 mm polyp, Dr Tinoco, [facility], repeat 2008 DEXA SCAN/BONE MINERAL AXIAL 2002 ok repeat in 2006 DIABETIC EYE EXAM 08/02/2012 no diabetic retinopathy FLEX SIG, GI REFERRAL OP 04/05/1999 polyps; diverticulitis INFORMATION labor and del x 3 INJECTION OF EYE DRUG Right 03/26/2017 # 1 Eylea OD, Dr. Reynoso INJECTION OF EYE DRUG Right 04/29/2017 # 2 Eylea OD, INJECTION OF EYE DRUG Right 07/23/2017 # 3 Eylea OD, Dr. Reynoso INJECTION OF EYE DRUG Right 08/26/2017 # 4 Eylea OD, INJECTION OF EYE DRUG Right 10/22/2017 # 5 Eylea OD, Dr. Reynoso INJECTION OF EYE DRUG Right 12/24/2017 # 6 Eylea OD, INJECTION OF EYE DRUG Right 01/27/2018 # 7 Eylea OD, Dr. Reynoso INJECTION OF EYE DRUG Right 03/04/2018 # 8 Eylea OD, Dr. Reynoso INJECTION OF EYE DRUG Right 04/07/2018 # 9 Eylea OD, Dr. Reynoso INJECTION OF EYE DRUG Right 05/13/2018 # 10 Eylea OD, INJECTION OF EYE DRUG Right 06/23/2018 # 11 Eylea OD, Dr. Reynoso INJECTION OF EYE DRUG Right 08/25/2018 # 12 Eylea OD, INJECTION OF EYE DRUG Right 10/27/2018 # 13 Eylea OD, Dr. Reynoso INJECTION OF EYE DRUG Right 12/30/2018 # 14 Eylea OD, INJECTION OF EYE DRUG Right 02/23/2019 # 15 Eylea OD, Dr. Reynoso INJECTION OF EYE DRUG Right 04/20/2019 # 16 Eylea OD, INJECTION OF EYE DRUG Right 06/15/2019 # 17 Eylea OD, Dr. Reynoso INJECTION OF EYE DRUG Right 08/10/2019 # 1 Lucentis 0.5mg OD, Dr. Reynoso INJECTION OF EYE DRUG Right 09/22/2019 #18 Eylea OD, INJECTION OF EYE DRUG Right 11/02/2019 # 19 Eylea OD, INJECTION OF EYE DRUG Right 12/14/2019 # 20 Eylea OD, Dr. Reynoso INJECTION OF EYE DRUG Right 02/08/2020 # 21 Eylea OD, Dr. Reynoso INJECTION OF EYE DRUG Right 03/28/2020 # 22 Eylea OD, Dr. Reynoso INJECTION OF EYE DRUG Right 05/09/2020 # 23 Eylea OD, Dr. Reynoso INJECTION OF EYE DRUG Right 06/15/2020 # 24 Eylea OD, INJECTION OF EYE DRUG Right 08/02/2020 # 25 Eylea OD, Dr. Reynoso INJECTION OF EYE DRUG Right 09/12/2020 # 26 Eylea OD, Dr. Reynoso INJECTION OF EYE DRUG Right 10/17/2020 # 27 Eylea OD, Dr. Reynoso INJECTION OF EYE DRUG Right 12/05/2020 # 28 Eylea OD, Dr. Reynoso INJECTION OF EYE DRUG Right 01/09/2021 # 29 Eylea OD, Dr. Reynoso INJECTION OF EYE DRUG Right 02/27/2021 # 30 Eylea OD, INJECTION OF EYE DRUG Right 04/18/2021 # 31 Eylea OD, INJECTION OF EYE DRUG Right 06/13/2021 #32 Eylea OD, Dr Reynoso INJECTION OF EYE DRUG Right 08/15/2021 # 33 Eylea OD, Dr. Reynoso INJECTION OF EYE DRUG Right 09/26/2021 # 34 Eylea OD, INJECTION OF EYE DRUG Right 11/11/2021 #[address]yle[address] Reynoso INJECTION OF EYE DRUG Right 12/25/2021 # 36 Eylea OD, Dr. Reynoso INJECTION OF EYE DRUG Right 02/06/2022 # 37 Eylea OD, Dr. Reynoso INJECTION OF EYE DRUG Right 03/27/2022 # 38 Eylea OD, Dr. Reynoso INJECTION OF EYE DRUG Right 05/16/2022 # 39 Eylea OD, Dr. Reynoso INJECTION OF EYE DRUG Right 07/25/2022 # 40 Eylea OD, Dr. Reynoso INJECTION OF EYE DRUG Right 09/05/2022 # 41 Eylea OD, Dr. Reynoso INJECTION OF EYE DRUG Right 10/24/2022 # 42 Eylea OD, Dr. Reynoso INJECTION OF EYE DRUG Right 12/11/2022 #43 EYLEA OD; DR REYNOSO INJECTION OF EYE DRUG Right 01/29/2023 # 44 Eylea OD, Dr. Reynoso INJECTION OF EYE DRUG Right 03/26/2023 # 45 Eylea OD, Dr. Reynoso INJECTION OF EYE DRUG Right 05/26/2023 # 46 Eylea OD, Dr. Reynoso INJECTION OF EYE DRUG Right 08/04/2023 #47 Eylea OD; Dr Reynoso INJECTION OF EYE DRUG Right 09/29/2023 #48 Eylea OD, Dr. Reynoso INJECTION OF EYE DRUG Right 12/11/2023 # 49 Eyela OD, Dr. Reynoso INJECTION OF EYE DRUG Right 02/09/2024 # 50 Eylea OD, Dr. Reynoso INJECTION OF EYE DRUG Right 04/19/2024 # 51 Eylea OD, Dr. Reynoso INJECTION OF EYE DRUG Right 06/16/2024 #52 Eylea OD, Dr. Reynoso INJECTION OF EYE DRUG Right 08/16/2024 #53 Eylea OD, Dr. Reynoso INJECTION OF EYE DRUG Right 10/21/2024 #54 Eylea OD, Dr. Reynoso INJECTION OF EYE DRUG Right 12/16/2024 # 55 Eylea OD, Dr. Reynoso LIGATE/CUT OVIDUCT(S) 1974 MAMMOGRAM - BILATERAL 01/07/2005 birad 2 MAMMOGRAM - BILATERAL 06/23/2008 birad code 2 MAMMOGRAM SCREENING-BILATERAL 01/04/2004 bengin findings, yearly mammograms appropriate, birad code 2 MISCELLANEOUS ORDER ([facility] ONLY) Right 03/26/2017-03/26/2018 EYLEA OD CONSENT SIGNED, Dr. Angeles MAR ORDER ([facility] ONLY) Right 04/07/2018-04/07/2019 Eylea OD consent signed, Dr. Angeles MAR ORDER ([facility] ONLY) ACT 112 SIGNED, Dr. Reynoso (12-30-2018) MISCELLANEOUS ORDER ([facility] ONLY) Right 04/20/2019-04/20/2020 Eylea OD consent signed, Dr.Cessna MAR ORDER ([facility] ONLY) Right 08/10/2019-08/10/2020 LUCENTIS 0.5MG CONSENT OD SIGNED; DR ANGELES MAR ORDER ([facility] ONLY) Right 05/09/2020-05/09/2021 Eylea OD consent signed, OTHER Eylea OD Consent signed /Cristóbal 06/13/2021-06/13/22 OTHER (INFORMATION) EYLEA OU CONSENT SIGNED Dr. Reynoso/Cristóbal (exp 07-25-23) OTHER (INFORMATION) CONSENT OU EYLEA exp 08/04/24; Dr Reynoso OTHER (INFORMATION) Eylea OU consent Dr. Reynoso/Cristóbal expires 08/16/2025 REMOVAL OF THYROID LESION 1999 REMOVE CATARACT, INSERT LENS PROSTH Right 02/02/2017 right EXTRACAPSULAR CATARACT REMOVAL WITH INTRAOCULAR LENS performed by Gabriel Acosta MD at OR [facility] REMOVE CATARACT, INSERT LENS PROSTH Left 02/09/2017 left EXTRACAPSULAR CATARACT REMOVAL WITH INTRAOCULAR LENS performed by Gabriel Acosta MD at OR [facility] Social History/Disposition Lives with: Alone (01/31/25957) Assistance available: Yes (limited. Sister lives 15 minutes away) (01/31/25957) Dwelling type: Apartment (01/31/25957) Entry steps: 1 (01/31/25957) Inside steps: Elevator (01/31/25957) Bedroom location: 1st floor (01/31/25957) Bath location: 1st floor shower (01/31/25957) Prior Level of Function Reported by: Patient (01/31/25957) Ambulation: Ambulatory without device (01/31/25957) Grooming: Independent (01/31/25957) Bathing: Independent (01/31/25957) Dressing: Independent (01/31/25957) Feeding: Independent (01/31/25957) Toileting: Independent (01/31/25957) Meal Prep: Independent (01/31/25957) Homemaking: Independent (01/31/25957) Shopping: Independent (01/31/25957) Medication Management: Independent (01/31/25957) Money Management: Independent (01/31/25957) Driving: Yes (01/31/25957) Durable Medical Equipment at home: No device (01/31/25957) Pain: No complaints of pain Observations Consciousness: Alert (01/31/25957) Orientation: Person;Place;Time;Situation (with choices and increased time) (01/31/25957) Cognitive Limitations: Processing;Problem solving;Task organization (01/31/25957) Psychosocial: Patient can communicate basic needs (01/31/25957) Sitting posture: Forward head;Rounded shoulders (01/31/25957) Standing posture: Forward head;Rounded shoulders (01/31/25957) Safety awareness: The Patient can communicate basic needs.;Needs cueing supervision. (01/31/25957) Other Findings Endurance: Fair (01/31/25957) Light touch sensation: Intact (01/31/25957) Proprioception: Intact (01/31/25957) Coordination: Intact (01/31/25957) Tone: Normal tone (01/31/25957) Edema: No edema noted (01/31/25957) Current Functional Status: Bilateral Upper Extremity Range of Motion: WFL, except (01/31/25957) RUE: Wrist (splinted) (01/31/25957) Strength Assessment: Deficits noted (01/31/25957) LUE: 4-/5 (01/31/25957) RUE: Shoulder;Grasp;4/5 (elbow atleast 3/5) (01/31/25957) Self Care Feeding: Supervision (Please comment) (setup) (01/31/25957) Grooming: Supervision (Please comment) (wash face) (01/31/25957) Dressing Upper Body: Moderate Assistance (change gown) (01/31/25957) Lower Body: Moderate Assistance (socks with use of foot stool) (01/31/25957) Functional Ambulation Assistive Device: Rolling walker (01/31/25957) Distance in feet:: 3 (01/31/25957) Level of Assistance: Minimal Assistance (01/31/25957) Bed Mobility Supine-Sit: Supervision (Please comment) (01/31/25957) OT Transfers Sit-Stand: Minimal Assistance (01/31/25957) Stand-Sit: Minimal Assistance (01/31/25957) Bed-Chair: Minimal Assistance (01/31/25957) Balance Sit (Static): Fair (01/31/25957) Sit (Dynamic): (fair- to poor+) (01/31/25957) Stand (Static): (Poor+) (01/31/25957) Stand (Dynamic): (Poor+) (01/31/25957) Alarm Status Patient positioned in: Chair (01/31/25957) With: Pressure pad alarm intact and functioning and call celestin in reach (01/31/25957) Following session patient seated OOB in chair with chair alarm activated and cord plugged into callbell system. Patient and Family Goals: to return home Patient Education Education Topic: Plan of care goals;Role of OT (01/31/25957) Review of Precautions: Fall;Safety;Weight Bearing Status (01/31/25957) Education Provided to: Patient (01/31/25957) Response to Education: Receptive and agreeable to education (01/31/25957) Barriers to learning: Medical status (01/31/25957) Preferred learning method: Combination (01/31/25957) Treatment Provided: Therapeutic Activity: 10 minutes Evaluation Moderate Complexity 16 minutes - 64195: Patient was cooperative, pleasant, and alert during treatment session. Moderate complexity evaluation performed and 3-5 activity limitations were identified, including ADL deficit, functional mobility deficit, bed mobility deficit, cognitive deficit, decreased strength, decreased endurance, and impaired balance. Minimal or moderate modification of the functional task was necessary to complete the evaluation. Deficits Requiring O.T. Treatment: Deficits requiring O.T. treatment needs: ADL/self-care;Balance;Endurance;Functional mobility;Safety;Upper extremity strength;Functional cognition (01/31/25 9181) Goals: Increase Strength of: increase 1/2 grade, Demonstrates sitting Balance at: modified independent, Demonstrates standing Balance at: modified independent, Demonstrates self care at: Grooming at Modified Independent , Bathing upper body at Modified Independent , Bathing lower body at Modified In dependent , Upper body dressing at Modified Independent , Lower body dressing at Modified Independent and Toileting at Modified Independent , Demonstrates Activity Tolerance at 40/45 minutes, Demonstrates Bed Mobility with: Supine to Sit: Modified Independent and Sit to Supine: Modified Independent, Demonstrates Transfers with: Sit to Stand: Modified Independent (100% with device/additional time) Stand to Sit: Modified Independent (100% with device/additional time) Bed to Chair/Wheelchair: Modified Independent (100% with device/additional time) Toilet: Modified Independent (100% with device/additional time) , Demonstrates Functional Ambulation: Assistive Device: least restrictive device and Level of Assistance: Modified Independent and Increase safety with transfers, ambulation and self care Goal Time Frame: 10 visits Assessment: Patient is a 79 year old female admitted s/p fall and presents with moderate deficits in all areas in all areas of care and mobility due to decreased strength, balance, activity tolerance, safety, cognition, expressive aphasia, NWB R UE and overall medical condition. Oriented with options and increased time to answer questions. Increased time needed to process information, needing verbal and visual cues. Repeatedly attempting to push through right UE despite redirection and education. Moderate assist to change gown at edge of bed and supervision to wash face. Utilizes step stool but required moderate assist to jorge socks with therapist initializing task and patient then completing. Stood with minimal assist x1 with hand held assist and took steps to bedside chair with minimal assist. Patient declining further ambulation due to complaints of dizziness with change of position.Would benefit from continued OT treatment to maximize level of functional independence. Please consider post-acute care services which may include home health, halfway, outpatient therapy or inpatient rehabilitation. The level of care will be determined in collaboration with patient, family/caregiver and care team members. Treatment Plan: Accuracy with Precautions, Energy Conservation, Safety, Bed mobility training, Functional Ambulation, Transfer training, Upper extremity strengthening, Balance activities: , ADL training , and Endurance Anticipated Frequency (on eval): 3 to 5 times per week (01/31/25957) AM-PAC Help From Another Person Eating Meals: A little (01/31/25957) Help From Another Person Taking Care of Personal Grooming: A little (01/31/25957) Help From Another Person To Put On/Take Off Upper Body Clothing: A lot (01/31/25957) Help From Another Person To Put On/Take Off Lower Body Clothing: A lot (01/31/25957) Help From Another Person Toileting: A lot (01/31/25957) Help From Another Person Bathing: A little (01/31/25957) OT AM-PAC Score: 15 (01/31/25957) OT AM-PAC t-Scale Score: 34.69 (01/31/25957) HLM (Highest Level of Mobility) Goal: Level 5 standing (1 or more minutes) (01/31/25956) A portion of this AM-PAC assessment not scored based on functional assessment ; rather clinical decision making utilized based on current findings and/or prior level of function. Please refer to future AM-PAC calculations of functional ability as they become available. Leanna Jensen MS OTR/L Occupational Therapy [facility] 01/31/2025 2:28 PM * Renée Rodriguez, DPT - 01/31/2025 9:57 AM EDTAssociated Order(s): ADULT PHYSICAL THERAPY CONSULT IP GENERAL EVALUATION - Physical Therapy [address] [phone] Name: Allie Diaz Location: [facility] [place] G503/A Date: 01/31/2025 Time: 956 Allie Diaz is a/an 79 year old female. Patient Status: Inpatient Insurance: Payor: [facility] GOLD Plan: [facility] PREFERRED COMPLETE RX MP-QD Product Type: *No Product type* Patient Seen: at bedside, nursing cleared patient for therapy Patient Identified By: Name, ID Band and Date Diagnosis: s/p with multiple injuries including SAH, SDH, R hip hematoma, and R distal radius fracture (01/31/25956) Status of treatment: Evaluation completed (01/31/25956) Orders: PT evaluation and treatment;OOB (01/31/25956) Weight Bearing Status: Non-weight bearing;RUE (team checking with ortho to see if pt can WB throughelbow and shoulder for platform walker use.) (01/31/25956) Precautions: Alarms;Falls;Safety (abdominal binder, NWB RUE with splint) (01/31/25956) Total Treatment Time--free text: 25 (01/31/25956) Past Medical History: Past Medical History: Diagnosis [...] 12/18/2005 hyperplastic 3 mm polyp, Dr Tinoco, [facility], repeat 2008 DEXA SCAN/BONE MINERAL AXIAL 2001 ok repeat in 2006 DIABETIC EYE EXAM 08/02/2012 no diabetic retinopathy FLEX SIG, GI REFERRAL OP 04/05/1999 polyps; diverticulitis INFORMATION labor and del x 3 INJECTION OF EYE DRUG Right 03/26/2017 # 1 Eylea OD, Dr. Reynoso INJECTION OF EYE DRUG Right 04/29/2017 # 2 Eylea OD, INJECTION OF EYE DRUG Right 07/23/2017 # 3 Eylea OD, Dr. Reynoso INJECTION OF EYE DRUG Right 08/26/2017 # 4 Eylea OD, INJECTION OF EYE DRUG Right 10/22/2017 # 5 Eylea OD, Dr. Reynoso INJECTION OF EYE DRUG Right 12/24/2017 # 6 Eylea OD, INJECTION OF EYE DRUG Right 01/27/2018 # 7 Eylea OD, Dr. Reynoso INJECTION OF EYE DRUG Right 03/04/2018 # 8 Eylea OD, Dr. Reynoso INJECTION OF EYE DRUG Right 04/07/2018 # 9 Eylea OD, Dr. Reynoso INJECTION OF EYE DRUG Right 05/13/2018 # 10 Eylea OD, INJECTION OF EYE DRUG Right 06/23/2018 # 11 Eylea OD, Dr. Reynoso INJECTION OF EYE DRUG Right 08/25/2018 # 12 Eylea OD, INJECTION OF EYE DRUG Right 10/27/2018 # 13 Eylea OD, Dr. Reynoso INJECTION OF EYE DRUG Right 12/30/2018 # 14 Eylea OD, INJECTION OF EYE DRUG Right 02/23/2019 # 15 Eylea OD, Dr. Reynoso INJECTION OF EYE DRUG Right 04/20/2019 # 16 Eylea OD, INJECTION OF EYE DRUG Right 06/15/2019 # 17 Eylea OD, Dr. Reynoso INJECTION OF EYE DRUG Right 08/10/2019 # 1 Lucentis 0.5mg OD, Dr. Reynoso INJECTION OF EYE DRUG Right 09/22/2019 #18 Eylea OD, INJECTION OF EYE DRUG Right 11/02/2019 # 19 Eylea OD, INJECTION OF EYE DRUG Right 12/14/2019 # 20 Eylea OD, Dr. Reynoso INJECTION OF EYE DRUG Right 02/08/2020 # 21 Eylea OD, Dr. Reynoso INJECTION OF EYE DRUG Right 03/28/2020 # 22 Eylea OD, Dr. Reynoso INJECTION OF EYE DRUG Right 05/09/2020 # 23 Eylea OD, Dr. Reynoso INJECTION OF EYE DRUG Right 06/15/2020 # 24 Eylea OD, INJECTION OF EYE DRUG Right 08/02/2020 # 25 Eylea OD, Dr. Reynoso INJECTION OF EYE DRUG Right 09/12/2020 # 26 Eylea OD, Dr. Reynoso INJECTION OF EYE DRUG Right 10/17/2020 # 27 Eylea OD, Dr. Reynoso INJECTION OF EYE DRUG Right 12/05/2020 # 28 Eylea OD, Dr. Reynoso INJECTION OF EYE DRUG Right 01/09/2021 # 29 Eylea OD, Dr. Reynoso INJECTION OF EYE DRUG Right 02/27/2021 # 30 Eylea OD, INJECTION OF EYE DRUG Right 04/18/2021 # 31 Eylea OD, INJECTION OF EYE DRUG Right 06/13/2021 #32 Eylea OD, Dr Reynoso INJECTION OF EYE DRUG Right 08/15/2021 # 33 Eylea OD, Dr. Reynoso INJECTION OF EYE DRUG Right 09/26/2021 # 34 Eylea OD, INJECTION OF EYE DRUG Right 11/11/2021 #[address] Reynoso INJECTION OF EYE DRUG Right 12/25/2021 # 36 Eylea OD, Dr. Reynoso INJECTION OF EYE DRUG Right 02/06/2022 # 37 Eylea OD, Dr. Reynoso INJECTION OF EYE DRUG Right 03/27/2022 # 38 Eylea OD, Dr. Reynoso INJECTION OF EYE DRUG Right 05/16/2022 # 39 Eylea OD, Dr. Reynoso INJECTION OF EYE DRUG Right 07/25/2022 # 40 Eylea OD, Dr. Reynoso INJECTION OF EYE DRUG Right 09/05/2022 # 41 Eylea OD, Dr. Reynoso INJECTION OF EYE DRUG Right 10/24/2022 # 42 Eylea OD, Dr. Reynoso INJECTION OF EYE DRUG Right 12/11/2022 #43 EYLEA OD; DR REYNOSO INJECTION OF EYE DRUG Right 01/29/2023 # 44 Eylea OD, Dr. Reynoso INJECTION OF EYE DRUG Right 03/26/2023 # 45 Eylea OD, Dr. Reynoso INJECTION OF EYE DRUG Right 05/26/2023 # 46 Eylea OD, Dr. Reynoso INJECTION OF EYE DRUG Right 08/04/2023 #47 Eylea OD; Dr Reynoso INJECTION OF EYE DRUG Right 09/29/2023 #48 Eylea OD, Dr. Reynoso INJECTION OF EYE DRUG Right 12/11/2023 # 49 Eyela OD, Dr. Reynoso INJECTION OF EYE DRUG Right 02/09/2024 # 50 Eylea OD, Dr. Reynoso INJECTION OF EYE DRUG Right 04/19/2024 # 51 Eylea OD, Dr. Reynoso INJECTION OF EYE DRUG Right 06/16/2024 #52 Eylea OD, Dr. Reynoso INJECTION OF EYE DRUG Right 08/16/2024 #53 Eylea OD, Dr. Reynoso INJECTION OF EYE DRUG Right 10/21/2024 #54 Eylea OD, Dr. Reynoso INJECTION OF EYE DRUG Right 12/16/2024 # 55 Eylea OD, Dr. Reynoso LIGATE/CUT OVIDUCT(S) 1974 MAMMOGRAM - BILATERAL 01/07/2005 birad 2 MAMMOGRAM - BILATERAL 06/23/2008 birad code 2 MAMMOGRAM SCREENING-BILATERAL 01/04/2004 bengin findings, yearly mammograms appropriate, birad code 2 MISCELLANEOUS ORDER ([facility] ONLY) Right 03/26/2017-03/26/2018 EYLEA OD CONSENT SIGNED, Dr. Angeles BYRNECELLANEOUS ORDER ([facility] ONLY) Right 04/07/2018-04/07/2019 Eylea OD consent signed, Dr. Reynoso MISCELLANEOUS ORDER ([facility] ONLY) ACT 112 SIGNED, Dr. Reynoso (12-30-2018) MISCELLANEOUS ORDER ([facility] ONLY) Right 04/20/2019-04/20/2020 Eylea OD consent signed, Dr.Cessna BYRNECELLANEOUS ORDER ([facility] ONLY) Right 08/10/2019-08/10/2020 LUCENTIS 0.5MG CONSENT OD SIGNED; DR ANGELES BYRNECELLANEOUS ORDER ([facility] ONLY) Right 05/09/2020-05/09/2021 Eylea OD consent signed, OTHER Eylea OD Consent signed 06/13/2021-06/13/22 OTHER (INFORMATION) EYLEA OU CONSENT SIGNED Dr. Reynoso/Cristóbal (exp 07-25-23) OTHER (INFORMATION) CONSENT OU EYLEA exp 08/04/24; Dr Reynoso OTHER (INFORMATION) Eylea OU consent Dr. Corbin [...] MD at OR [facility] Subjective: Pt is agreeable to therapy. Social History/Disposition Lives with: Alone (01/31/25956) Assistance available: Yes (sister lives about 15 miles away but can assist at d/c) (01/31/25956) Dwelling type: Apartment (01/31/25956) Entry steps: 1 (01/31/25956) Inside steps: Elevator (01/31/25956) Bedroom location: 1st floor (01/31/25956) Bath location: 1st floor shower (01/31/25956) Prior Level of Function Reported by: Patient (01/31/25956) Ambulation: Ambulatory without device (01/31/25956) Devices at home: No device (01/31/25956) Observations Consciousness: Alert (01/31/25956) Orientation: Oriented times 4 (with increased time and choices due to pt is aphasic) (01/31/25956) Psychosocial: Patient can communicate basic needs (pt is aphasic) (01/31/25956) Other Findings: Yes (01/31/25956) Findings: Light touch sensation (01/31/25956) Light Touch Sensation Results: Intact;LLE;RLE (01/31/25956) Sitting Posture: Rounded shoulders;Forward head (01/31/25956) Standing Posture: Rounded shoulders;Forward head (01/31/25956) Pain: No complaints of pain Range of Motion Range of Motion: WFL (01/31/25956) Strength Assessment Strength Assessment: Deficits noted (01/31/25956) WNL, except: LLE;RLE (01/31/25956) LLE: Hip;Knee;Ankle;4/5 (01/31/25956) RLE: Hip;Knee;Ankle;4/5 (01/31/25956) P.T. Bed Mobility Supine-Sit: Supervision (with HOB elevated and verbal cues to maintain NWB RUE) (01/31/25956) Transfers Sit-Stand: Minimal Assistance (verbal cues throughout to maintain NWB RUE) (01/31/25956) Stand-Sit: Minimal Assistance (01/31/25956) Ambulation Assist: Minimal Assistance (01/31/25956) Distance Ambulated (feet): 0 (01/31/25 1000) Assistive Device: No device (01/31/25 1000) Noted gait deviations: PT needed to hold RUE due to pt attempting to reach for Iv pole and other pieces of furniture to support, Max cues for NWB RUE. instability noted. Team checking to see if orthowill allow WBing through shoulder and elbow for platform walker use. (01/31/25956) Ambulatory safety: Patient verbalizes insight of current deficits;Patient cannot demonstrates carryover of insight during functional tasks (01/31/25956) Balance Sit (Static): Fair (01/31/25956) Sit (Dynamic): (fair- to poor+) (01/31/25956) Stand (Static): Poor (+) (01/31/25956) Stand (Dynamic): Poor (+) (01/31/25956) Patient and or Family Goal(s): to get well and to return home Patient Education Review of Precautions: Safety;Fall;Weight Bearing Status (01/31/25956) Safety Awareness: Patient verbalizes insight of current deficits;Patient does not demonstrates carryover of insight during functional tasks;Patient can communicate basic needs;Needs cueing supervision (01/31/25956) Preferred learning method: Combination (01/31/25956) Barriers to learning: Medical Status;Speaking (aphasia) (01/31/25956) Method of Education: Verbalized to patient (01/31/25956) Topic of Education: Weight bearing restrictions, Safety with mobility, Goals/plan of care, Fall prevention, and role of PT Method of Education: Verbal discussion and explanation provided to patient: verbalized understanding and or agreement of this information and had reduced level of understanding due to decreased recall Treatment Provided: Therapeutic Activities 15 minutes: bed mobility training transfer training education non weight bearing precautions Evaluation Moderate Complexity 10 minutes - 00600: Patient was cooperative during treatment session. Moderate complexity evaluation performed and 1-2 personal factors or comorbidities were identifiedthat will impact plan of care, including lives alone at home and history of CVA. Patient presents with limitations in strength, bed mobility, transfers, gait, elevations, balance, endurance, and safety, which will impact plan of care. These limitations will be addressed by the goals set for this patient. Alarm Status Patient positioned in: Chair (01/31/25956) With: Pressure pad alarm intact and functioning and call celestin in reach (01/31/25956) Following session patient seated OOB in chair with chair alarm activated and cord plugged into callbell system. Treatment Status: Treatment at bedside (01/31/25956) Goals: Demonstrate Bed Mobility with: Rolling both sides: modified independent (with device or slow) Supine to/from Sit: modified independent (with device or slow) Demonstrate Transfers with: Sit to/from stand: modified independent (with device or slow) Bed to/from chair: modified independent (with device or slow) Demonstrate Ambulation: least restrictive device; distance in feet: 150 feet, modified independent (with device or slow) Demonstrate Stairclimbing: Number of steps: 1, with device, and Level of Assistance: modified independent (with device or slow) Increase Strength of: lower extremities by 1/2 grade in deficit muscle groups Increase Balance: to fair+ in sitting and fair+ in standing Increase Safety: by maintaining NWB RUE without cues Time Frame: 10 visits Assessment: Patient is a 79 y/o female s/p with multiple injuries including SAH, SDH, R hip hematoma, and R distal radius fracture. Prior to admission, patient lives alone in an apartment with elevator access to her floor and was independent with mobility, though pt and sister notes she might have needed a walker or cane because she was starting to become unbalanced. Pt also has 1 step up into the building. Patient currently requires supervision for bed mobility, up to minimal assist for dynamic sitting balance, transfers, and to take a few steps to the chair without a device. NWB RUE education was provided but pt with decreased recall and needed maximal cues to maintain. Of note, pt also has a history of a stroke with expressive aphasia. Mobility this date limited by pt feeling dizzy anddecreased balance/safety. Patient's overall mobility is limited by NWB RUE status, decreased LE strength, decreased balance, decreased endurance, and overall medical status. Patient would benefit from continued PT to maximize functional independence. Please consider post-acute care services which may include home health, halfway, outpatient therapy or inpatient rehabilitation. The level of care will be determined in collaboration with patient, family/caregiver and care team members. Treatment Plan: Bed mobility training, Transfer training, Gait training, Elevation training, ROM toBLE to maintain joint mobility/integrity, Strengthening exercises: lower extremities, Balance activities, and Educate on safety with fall prevention Anticipated Frequency (on eval): 3 to 5 times per week (01/31/25956) Deficits requiring P.T. treatment needs: Safety;Mobility;Balance;Weakness;Endurance;Lower extremitystrength (01/31/25956) Equipment needs: TBD AM-PAC Score With Stairs : 16 (01/31/25956) A portion of this AM-PAC assessment not scored based on functional assessment due to dizziness; rather clinical decision making utilized based on current findings and/or prior level of function. Please refer to future AM-PAC calculations of functional ability as they become available. Renée Cohen, PT, DPT, NCS Physical Therapy [facility] * Sara Willis, [facility] - 01/31/2025 8:12 AM EDTAssociated Order(s): ADULT SPEECH THERAPY CONSULT IP (ACUTE CARE REHAB) CLINICAL BEDSIDE SWALLOW EVALUATION - Speech-Language Pathology [address] [id number] Name: Allie Diaz Location: [facility] [place] G503/A Date: 01/31/2025 Time: 8:12 AM Patient Status: Inpatient Insurance: Payor: [facility] GOLD / Plan: P PREFERRED COMPLETE RX MP-QD / Product Type: *No Product type* / GENERAL INFORMATION: Admission Date: 01/30/2025 Referring Physician: Vadnana Pertinent Medical History: [facility] the pt is a "79 year old female with a PMHx of CVA, T2DM, DLD, hypothyroidism, anxiety, and depression who was a transfer from [facility] as a level 2trauma alert. The patient is GCS 14, unable to provide a reliable history due to confusion. She wasreported to be found down in a [employer] parking lot, confused, and possible left sided facial droop.She has a right forehead hematoma and eyebrow laceration that was repaired at OSH. Scans show SDH and right frontal subarachnoid hemorrhage. She also endorses some right sided rib and hip pain as well as a hematoma of the right hip." Past Medical History: Diagnosis Date Benign neoplasm [...] villous adenoma, FU due 09/[address] Head 01/31/25: IMPRESSION Unchanged small volume subarachnoid hemorrhage along the right frontal lobe and small anterior parafalcine subdural hematoma. No evidence of new or progressive hemorrhage. Current Diet/Dysphagia History: NPO pass Nursing Bedside Dysphagia Screening -per [facility] notes pt presented to [facility] 2017 for severe dysphagia and was dx w/left temporal stroke Cognitive-Communication: Pt was alert, interactive, following commands and expressing her wants/needs w/expressive impairments -per epic notes she was receiving speech therapy following her stroke 2018 unsure of her baseline communication function -per sister at bedside, pt lives alone, cooks, drives and writes out her own checks. The sister balances her check book. Pt baseline cognitive-communicative impairments, sister reports confusion and impaired expressive language Barriers to Learning: Medical Status Hearing Acuity: Deferred Best Learning Method: Auditory ORAL MECHANISM EXAM: Facial Symmetry Within functional limits Labial Function Within functional limits Lingual Function Within functional limits Velar Function Did not test Dentition: Natural PROTECTIVE MECHANISMS: Volitional Swallow Within Functional Limits Volitional Throat Clearing Did not test Volitional Cough Did not test Gag Reflex Did not test Vocal Quality Within Functional Limits Tracheostomy Tube: Not Present Ventilator Status: Not Applicable SWALLOWING FUNCTION: ORAL PREPARATION PHASE: Puree (IDDSI Level 4): WFL Minced and Moist (IDDSI Level 5): WFL Soft and Bite-Sized (IDDSI Level 6): WFL Regular (IDDSI Level 7): WFL Thin Liquid (IDDSI Level 0): WFL ORAL PHASE: Puree (IDDSI Level 4): WFL Minced and Moist (IDDSI Level 5): WFL Soft and Bite-Sized (IDDSI Level 6): WFL Regular (IDDSI Level 7): WFL Thin Liquid (IDDSI Level 0): WFL PHARYNGEAL PHASE Puree (IDDSI Level 4): WFL Minced and Moist (IDDSI Level 5): WFL Soft and Bite-Sized (IDDSI Level 6): WFL Regular (IDDSI Level 7): WFL Thin Liquid (IDDSI Level 0): WFL RECOMMENDATIONS/PLAN: Videofluoroscopy: Not indicated Diet Level: Regular Liquid Level: Thin Presentation of Medication: As tolerated Positioning: Seated with 90 degree hip flexion Level of Supervision: intermittent Compensatory Techniques to be Utilized During PO Intake: Small Bites/Sips, Alternate Solids & Liquids and Slow Rate of Intake Compensatory Strategies Utilized: As above Additional findings: N/A DIAGNOSIS/IMPRESSIONS: Diagnosis/Impressions: The oral and pharyngeal phases of the swallow appear to be within functional limits. No overt s/s aspiration/penetration were noted on all consistencies presented. Rehab Potential: Good TREATMENT PLAN: Swallowing Treatment: Not Indicated The above information was discussed with the patient. Yes The patient was in Agreement * Kevin Nolen MD - 01/30/2025 11:03 PM EDT NEUROLOGICAL SURGERY CONSULT NOTE [facility] [place] [address] Name: Allie Diaz Location: [facility] [place] G503/A Date: 01/30/2025 Time: 11:03 PM Requesting service: Trauma Surgery Reason for consult: "trace tSAH and parafalcine SDH" HISTORY OF PRESENT ILLNESS: Allie Diaz 79 year old female [id number] w/ PMH significant for DM2, depression/anxiety, osteoporosis, L temporal stroke 2018 on Plavix 75, HLD, HTN, who presents to the neurosurgery service for trace tSAH and parafalcine SDH s/p mechanical FFS. Also with JASWINDER lofton. Problem List Patient Active Problem List Diagnosis Hypothyroidism DIVERTICULOSIS [...] right radius Contusion of right knee Obesity PMHx Past Medical History: Diagnosis Date Benign neoplasm [...] villous adenoma, FU due 09/20 Uterine leiomyoma YEAST PUMPER Meds Prior to Admission medications Medication Sig Last Dose Discont. LORazepam 1 MG Oral Tablet (Ativan) TAKE 1/2 TABLET BY MOUTH EVERY 8 HOURS NEEDED FOR ANXIETY (1/2 TAB UP TO THREE TIMES DAILY). Unknown Gabapentin 300 MG Oral Capsule (Neurontin) Take 1 Capsule by mouth at bedtime. Unknown buPROPion HCl ER (XL) 300 MG Oral Tablet Extended Release 24 Hour (Wellbutrin XL) Take 1 Tablet by mouth in the morning. Unknown Mirtazapine 15 MG Oral Tablet (Remeron) Take 1 Tablet by mouth at bedtime. Unknown Levothyroxine Sodium 125 MCG Oral Tablet (Levoxyl) TAKE 1 TABLET BY MOUTH IN THE MORNING AT LEAST 30 MINUTES PRIOR TO OTHER MEDICATIONS OR BREAKFAST Unknown Lisinopril 5 MG Oral Tablet (Prinivil) TAKE 1 TABLET BY MOUTH IN THE MORNING Unknown FLUoxetine HCl 40 MG Oral Capsule (PROzac) Take 1 capsule by mouth in the morning Unknown metFORMIN HCl ER 500 MG Oral Tablet Extended Release 24 Hour (Glucophage XR) TAKE 2 TABLETS BY MOUTH TWICE DAILY WITH MORNING MEAL AND WITH EVENING MEAL Unknown Atorvastatin Calcium 40 MG Oral Tablet (Lipitor) Take 1 Tablet by mouth in the morning. Unknown Clopidogrel Bisulfate 75 MG Oral Tablet (pLAVix) Take 1 Tablet by mouth in the morning. Unknown Alendronate Sodium 70 MG Oral Tablet (Fosamax) Take 1 Tablet by mouth once a week. With a full glass of water. Remain upright for 30 minutes after taking. Unknown Hydrocortisone 2.5 % External Lotion Apply to ear canal daily as needed for itching. Unknown Shipey Ultra In Vitro Strip (Glucose Blood) USE STRIP TO CHECK GLUCOSE UP TO TWICE DAILY DIRECTED Sodium Chloride (Hypertonic) 5 % Ophthalmic Solution Instill 1 Drop into the right eye in the morning and 1 Drop before bedtime. Vitamin D3 25 MCG (1000 UT) Oral Tablet (Vitamin D3) Take 1 Tablet by mouth in the morning. Acetaminophen ER 650 MG Oral Tablet Extended Release Take 1 Tablet by mouth every 8 hours as neededfor Pain, Moderate. Multiple Vitamins-Minerals (PRESERVISION AREDS 2) Capsule Take 1 Cap by mouth 2 times a day. PSHx Past Surgical History: Procedure Laterality Date BIOPSY [...] 12/18/2005 hyperplastic 3 mm polyp, Dr Tinoco, [facility], repeat 2008 DEXA SCAN/BONE MINERAL AXIAL 2001 ok repeat in 2006 DIABETIC EYE EXAM 08/02/2012 no diabetic retinopathy FLEX SIG, GI REFERRAL OP 04/05/1999 polyps; diverticulitis INFORMATION labor and del x 3 INJECTION OF EYE DRUG Right 03/26/2017 # 1 Eylea OD, Dr. Reynoso INJECTION OF EYE DRUG Right 04/29/2017 # 2 Eylea OD, INJECTION OF EYE DRUG Right 07/23/2017 # 3 Eylea OD, Dr. Reynoso INJECTION OF EYE DRUG Right 08/26/2017 # 4 Eylea OD, INJECTION OF EYE DRUG Right 10/22/2017 # 5 Eylea OD, Dr. Ryenoso INJECTION OF EYE DRUG Right 12/24/2017 # 6 Eylea OD, INJECTION OF EYE DRUG Right 01/27/2018 # 7 Eylea OD, Dr. Reynoso INJECTION OF EYE DRUG Right 03/04/2018 # 8 Eylea OD, Dr. Reynoso INJECTION OF EYE DRUG Right 04/07/2018 # 9 Eylea OD, Dr. Reynoso INJECTION OF EYE DRUG Right 05/13/2018 # 10 Eylea OD, INJECTION OF EYE DRUG Right 06/23/2018 # 11 Eylea OD, Dr. Reynoso INJECTION OF EYE DRUG Right 08/25/2018 # 12 Eylea OD, INJECTION OF EYE DRUG Right 10/27/2018 # 13 Eylea OD, Dr. Reynoso INJECTION OF EYE DRUG Right 12/30/2018 # 14 Eylea OD, INJECTION OF EYE DRUG Right 02/23/2019 # 15 Eylea OD, Dr. Reynoso INJECTION OF EYE DRUG Right 04/20/2019 # 16 Eylea OD, INJECTION OF EYE DRUG Right 06/15/2019 # 17 Eylea OD, Dr. Reynoso INJECTION OF EYE DRUG Right 08/10/2019 # 1 Lucentis 0.5mg OD, Dr. Reynoso INJECTION OF EYE DRUG Right 09/22/2019 #18 Eylea OD, INJECTION OF EYE DRUG Right 11/02/2019 # 19 Eylea OD, INJECTION OF EYE DRUG Right 12/14/2019 # 20 Eylea OD, Dr. Reynoso INJECTION OF EYE DRUG Right 02/08/2020 # 21 Eylea OD, Dr. Reynoso INJECTION OF EYE DRUG Right 03/28/2020 # 22 Eylea OD, Dr. Reynoso INJECTION OF EYE DRUG Right 05/09/2020 # 23 Eylea OD, Dr. Reynoso INJECTION OF EYE DRUG Right 06/15/2020 # 24 Eylea OD, INJECTION OF EYE DRUG Right 08/02/2020 # 25 Eylea OD, Dr. Reynoso INJECTION OF EYE DRUG Right 09/12/2020 # 26 Eylea OD, Dr. Reynoso INJECTION OF EYE DRUG Right 10/17/2020 # 27 Eylea OD, Dr. Reynoso INJECTION OF EYE DRUG Right 12/05/2020 # 28 Eylea OD, Dr. Reynoso INJECTION OF EYE DRUG Right 01/09/2021 # 29 Eylea OD, Dr. Reynoso INJECTION OF EYE DRUG Right 02/27/2021 # 30 Eylea OD, INJECTION OF EYE DRUG Right 04/18/2021 # 31 Eylea OD, INJECTION OF EYE DRUG Right 06/13/2021 #32 Eylea OD, Dr Reynoso INJECTION OF EYE DRUG Right 08/15/2021 # 33 Eylea OD, Dr. Reynoso INJECTION OF EYE DRUG Right 09/26/2021 # 34 Eylea OD, INJECTION OF EYE DRUG Right 11/11/2021 #[address] Reynoso INJECTION OF EYE DRUG Right 12/25/2021 # 36 Eylea OD, Dr. Reynoso INJECTION OF EYE DRUG Right 02/06/2022 # 37 Eylea OD, Dr. Reynoso INJECTION OF EYE DRUG Right 03/27/2022 # 38 Eylea OD, Dr. Reynoso INJECTION OF EYE DRUG Right 05/16/2022 # 39 Eylea OD, Dr. Reynoso INJECTION OF EYE DRUG Right 07/25/2022 # 40 Eylea OD, Dr. Reynoso INJECTION OF EYE DRUG Right 09/05/2022 # 41 Eylea OD, Dr. Reynoso INJECTION OF EYE DRUG Right 10/24/2022 # 42 Eylea OD, Dr. Reynoso INJECTION OF EYE DRUG Right 12/11/2022 #43 EYLEA OD; DR REYNOSO INJECTION OF EYE DRUG Right 01/29/2023 # 44 Eylea OD, Dr. Reynoso INJECTION OF EYE DRUG Right 03/26/2023 # 45 Eylea OD, Dr. Reynoso INJECTION OF EYE DRUG Right 05/26/2023 # 46 Eylea OD, Dr. Reynoso INJECTION OF EYE DRUG Right 08/04/2023 #47 Eylea OD; Dr Reynoso INJECTION OF EYE DRUG Right 09/29/2023 #48 Eylea OD, Dr. Reynoso INJECTION OF EYE DRUG Right 12/11/2023 # 49 Eyela OD, Dr. Reynoso INJECTION OF EYE DRUG Right 02/09/2024 # 50 Eylea OD, Dr. Reynoso INJECTION OF EYE DRUG Right 04/19/2024 # 51 Eylea OD, Dr. Reynoso INJECTION OF EYE DRUG Right 06/16/2024 #52 Eylea OD, Dr. Reynoso INJECTION OF EYE DRUG Right 08/16/2024 #53 Eylea OD, Dr. Reynoso INJECTION OF EYE DRUG Right 10/21/2024 #54 Eylea OD, Dr. Reynoso INJECTION OF EYE DRUG Right 12/16/2024 # 55 Eylea OD, Dr. Reynoso LIGATE/CUT OVIDUCT(S) 1974 MAMMOGRAM - BILATERAL 01/07/2005 birad 2 MAMMOGRAM - BILATERAL 06/23/2008 birad code 2 MAMMOGRAM SCREENING-BILATERAL 01/04/2004 bengin findings, yearly mammograms appropriate, birad code 2 MISCELLANEOUS ORDER ([facility] ONLY) Right 03/26/2017-03/26/2018 EYLEA OD CONSENT SIGNED, Dr. Reynoso MISCELLANEOUS ORDER ([facility] ONLY) Right 04/07/2018-04/07/2019 Eylea OD consent signed, Dr. Reynoso MISCELLANEOUS ORDER ([facility] ONLY) ACT 112 SIGNED, Dr. Reynoso (12-30-2018) MISCELLANEOUS ORDER ([facility] ONLY) Right 04/20/2019-04/20/2020 Eylea OD consent signed, MISCELLANEOUS ORDER ([facility] ONLY) Right 08/10/2019-08/10/2020 LUCENTIS 0.5MG CONSENT OD SIGNED; DR REYNOSO MISCELLANEOUS ORDER ([facility] ONLY) Right 05/09/2020-05/09/2021 Eylea OD consent signed, OTHER Eylea OD Consent signed 06/13/2021-06/13/22 OTHER (INFORMATION) EYLEA OU CONSENT SIGNED Dr. Reynoso/Cristóbal (exp 07-25-23) OTHER (INFORMATION) CONSENT OU EYLEA exp 08/04/24; Dr Reynoso OTHER (INFORMATION) Eylea OU consent Dr. Reynoso/Cristóbal expires 08/16/2025 REMOVAL OF THYROID LESION 1999 REMOVE CATARACT, INSERT LENS PROSTH Right 02/02/2017 right EXTRACAPSULAR CATARACT REMOVAL WITH INTRAOCULAR LENS performed by Gabriel Acosta MD at OR [facility] REMOVE CATARACT, INSERT LENS PROSTH Left 02/09/2017 left EXTRACAPSULAR CATARACT REMOVAL WITH INTRAOCULAR LENS performed by Gabriel Acosta MD at OR [facility] Social Hx Social History Tobacco Use Smoking status: Never Smokeless tobacco: Never Vaping Use Vaping status: Never Used Substance Use Topics Alcohol use: Not Currently Comment: rare Drug use: No Fam Hx Family History Problem Relation Name Age of Onset Eye Problems Father AMD Eye Problems Sister AMD Cancer Father lung Diabetes Father niddm Diabetes Mother iddm Diabetes Sister iddm Cancer Sister uterine ca Heart Disorder Sister Heart Disorder Mother chf Gastro-intestinal disorder Sister diverticulitis Heart Disorder Son fatal PR at age 49 No Past Hx Son Glaucoma Other Denies family hx Breast Cancer Grandmother (Maternal) Allergies Sertraline hcl, Simvastatin, and Sulfa antibiotics REVIEW OF SYSTEMS: Per HPI PHYSICAL EXAMINATION: Vital signs over last 24 hours: BP: 118 mmHg/68 mmHg (01/30/252199) Most Recent Systolic BP Av.2 mmHg Min: 100 mmHg Max: 156 mmHg Pulse: 62 (01/30/252199) Pulse Av.4 Min: 62 Max: 75 Temperature: 37.11 C (01/30/251999) Most Recent Temperature Av.1 C Min: 36.89 C Max: 37.22 C Respirations: 16 (01/30/252199) Resp Av.1 Min: 13 Max: 26 SpO2: 97 % (01/30/252199) SpO2 Av.2 % Min: 95 % Max: 98 % ICP: No data recorded CPP: No data recorded NEUROLOGIC EXAMINATION: Rhett Coma Scale (GCS): Eyes Open: 4 = spontaneous Best Verbal Response: 4 = disoriented, inappropriate, cries Best Motor Response: 6 = obeys commands appropriate for age PERRL EOMi No droop No drift NORTH to command Sensation intact x4 LABS: Chemistry: Lab Results Component Value Date/Time BUN 19 01/30/2025 05:09 PM BUN 16 11/19/2020 08:37 AM BUN 11 01/31/1997 07:31 AM CREAT 0.9 01/30/2025 05:09 PM CREAT 0.8 11/19/2020 08:37 AM GFRESTIMATED >60.0 11/19/2020 08:37 AM NA 141 01/30/2025 05:09 PM NA 140 11/19/2020 08:37 AM POTASSIUM 4.7 01/30/2025 05:09 PM POTASSIUM 4.5 11/19/2020 08:37 AM POTASSIUM 4.2 01/31/1997 07:31 AM CO2 23 01/30/2025 05:09 PM CO2 28 11/19/2020 08:37 AM Coagulation studies: Lab Results Component Value Date/Time INR 1.0 01/30/2025 05:09 PM Blood count: Lab Results Component Value Date/Time WBC 12.73 (H) 01/30/2025 05:09 PM WBC 6.72 03/07/2013 08:28 AM WBC 6.7 01/31/1997 07:31 AM WBC NEGATIVE 01/31/1997 07:31 AM HGB 12.5 01/30/2025 05:09 PM HGB 14.5 03/07/2013 08:28 AM HGB 14.6 01/31/1997 07:31 AM HCT 40.4 01/30/2025 05:09 PM HCT 44.5 03/07/2013 08:28 AM HCT 43.4 01/31/1997 07:31 AM PLT 262 01/30/2025 05:09 PM PLT 222 03/07/2013 08:28 AM PLT 224 01/31/1997 07:31 AM IMAGING STUDIES: CTH - trace tSAH and parafalcine SDH IMPRESSION: Allie Diaz 79 year old female [id number] w/ PMH significant for DM2, depression/anxiety, osteoporosis, L temporal stroke 2018 on Plavix 75, HLD, HTN, who presents to the neurosurgery service for trace tSAH and parafalcine SDH s/p mechanical FFS. Also with JASWINDER fx. RECOMMENDATIONS: ICU Q1 hr neuro checks Keppra 500 BID x7 days Hold Ap/Ac x14 days 6 hour interval repeat CTH Ok for DVT chemo ppx from nsgy perspective 24 hrs post stable rCTH Ok for diet from nsgy perspective if rCTH stable Case was discussed with chief resident Cosigned by Pedro Chaudhry III, MD at 01/31/2025 11:11 AM EDT Associated attestation - Pedro Chaudhry III, MD - 01/31/2025 11:11 AM EDT I did not see the patient, but I have reviewed the resident/fellow physician documentation and was not readily available on date of service. I personally discussed the care and treatment plan for this patient with the house staff. * Deanne Vargas MD - 01/30/2025 9:49 PM EDTAssociated Order(s): ADULT/PEDS ORTHOPAEDICS CONSULT IP Images from the original note were not included. CONSULT HISTORY & PHYSICAL EXAMINATION - Orthopaedic Service [address] [address] Name: Allie Diaz Location: [facility] [place] G503/A Date: 01/30/2025 Time: 9:50 PM Reason For Consult: right distal radius fx Consult initiated with review of imaging, exam and clinical decision making at: 9:50pm HPI: Allie Diaz is a 79 year old female pmh stroke, mild vascular neurocognitive disorder, HTN, HLD,BPPV, uterine fibroid, leiomyoma, DM2, hypothyroidism, cataracts, macular degeneration, osteoporosis, RLS, RACHEL, MDD troke (residual deficit) who presents to [facility] after a level 2 trauma transfer from [facility]. Patient was found down in a [employer] parking lot. She was found tohave a SDH and right SAH on trauma scans. She was also found to have right hip hematoma. Unable to see radiographs of right hip (placed order here). We were consulted due to right distal radius fracture. Patient is unable to tell me history or story. Her sister was at bedside. Accordingly, this is her baseline after stroke 6 years ago. Despite this, sister states that Sangeeta does still live alone- she seemingly reuses home health or an aid. Her sister states Sangeeta is right handed. Does not believe she uses a cane or walker. Does take plavix. Unknown last dose. BMI: Body mass index is 33.31 kg/m². Past Medical History: Past Medical History: Diagnosis [...] 12/18/2005 hyperplastic 3 mm polyp, Dr Tinoco, [facility], repeat 2008 DEXA SCAN/BONE MINERAL AXIAL 2002 ok repeat in 2006 DIABETIC EYE EXAM 08/02/2012 no diabetic retinopathy FLEX SIG, GI REFERRAL OP 04/05/1999 polyps; diverticulitis INFORMATION labor and del x 3 INJECTION OF EYE DRUG Right 03/26/2017 # 1 Eylea OD, Dr. Reynoso INJECTION OF EYE DRUG Right 04/29/2017 # 2 Eylea OD, INJECTION OF EYE DRUG Right 07/23/2017 # 3 Eylea OD, Dr. Reynoso INJECTION OF EYE DRUG Right 08/26/2017 # 4 Eylea OD, INJECTION OF EYE DRUG Right 10/22/2017 # 5 Eylea OD, Dr. Reynoso INJECTION OF EYE DRUG Right 12/24/2017 # 6 Eylea OD, INJECTION OF EYE DRUG Right 01/27/2018 # 7 Eylea OD, Dr. Reynoso INJECTION OF EYE DRUG Right 03/04/2018 # 8 Eylea OD, Dr. Reynoso INJECTION OF EYE DRUG Right 04/07/2018 # 9 Eylea OD, Dr. Reynoso INJECTION OF EYE DRUG Right 05/13/2018 # 10 Eylea OD, INJECTION OF EYE DRUG Right 06/23/2018 # 11 Eylea OD, Dr. Reynoso INJECTION OF EYE DRUG Right 08/25/2018 # 12 Eylea OD, INJECTION OF EYE DRUG Right 10/27/2018 # 13 Eylea OD, Dr. Reynoso INJECTION OF EYE DRUG Right 12/30/2018 # 14 Eylea OD, INJECTION OF EYE DRUG Right 02/23/2019 # 15 Eylea OD, Dr. Reynoso INJECTION OF EYE DRUG Right 04/20/2019 # 16 Eylea OD, INJECTION OF EYE DRUG Right 06/15/2019 # 17 Eylea OD, Dr. Reynoso INJECTION OF EYE DRUG Right 08/10/2019 # 1 Lucentis 0.5mg OD, Dr. Reynoso INJECTION OF EYE DRUG Right 09/22/2019 #18 Eylea OD, INJECTION OF EYE DRUG Right 11/02/2019 # 19 Eylea OD, INJECTION OF EYE DRUG Right 12/14/2019 # 20 Eylea OD, Dr. Reynoso INJECTION OF EYE DRUG Right 02/08/2020 # 21 Eylea OD, Dr. Reynoso INJECTION OF EYE DRUG Right 03/28/2020 # 22 Eylea OD, Dr. Reynoso INJECTION OF EYE DRUG Right 05/09/2020 # 23 Eylea OD, Dr. Reynoso INJECTION OF EYE DRUG Right 06/15/2020 # 24 Eylea OD, INJECTION OF EYE DRUG Right 08/02/2020 # 25 Eylea OD, Dr. Reynoso INJECTION OF EYE DRUG Right 09/12/2020 # 26 Eylea OD, Dr. Reynoso INJECTION OF EYE DRUG Right 10/17/2020 # 27 Eylea OD, Dr. Reynoso INJECTION OF EYE DRUG Right 12/05/2020 # 28 Eylea OD, Dr. Reynoso INJECTION OF EYE DRUG Right 01/09/2021 # 29 Eylea OD, Dr. Reynoso INJECTION OF EYE DRUG Right 02/27/2021 # 30 Eylea OD, INJECTION OF EYE DRUG Right 04/18/2021 # 31 Eylea OD, INJECTION OF EYE DRUG Right 06/13/2021 #32 Eylea OD, Dr Reynoso INJECTION OF EYE DRUG Right 08/15/2021 # 33 Eylea OD, Dr. Reynoso INJECTION OF EYE DRUG Right 09/26/2021 # 34 Eylea OD, INJECTION OF EYE DRUG Right 11/11/2021 #[address]yle[address] Reynoso INJECTION OF EYE DRUG Right 12/25/2021 # 36 Eylea OD, Dr. Reynoso INJECTION OF EYE DRUG Right 02/06/2022 # 37 Eylea OD, Dr. Reynoso INJECTION OF EYE DRUG Right 03/27/2022 # 38 Eylea OD, Dr. Reynoso INJECTION OF EYE DRUG Right 05/16/2022 # 39 Eylea OD, Dr. Reynoso INJECTION OF EYE DRUG Right 07/25/2022 # 40 Eylea OD, Dr. Reynoso INJECTION OF EYE DRUG Right 09/05/2022 # 41 Eylea OD, Dr. Reynoso INJECTION OF EYE DRUG Right 10/24/2022 # 42 Eylea OD, Dr. Reynoso INJECTION OF EYE DRUG Right 12/11/2022 #43 EYLEA OD; DR REYNOSO INJECTION OF EYE DRUG Right 01/29/2023 # 44 Eylea OD, Dr. Reynoso INJECTION OF EYE DRUG Right 03/26/2023 # 45 Eylea OD, Dr. Reynoso INJECTION OF EYE DRUG Right 05/26/2023 # 46 Eylea OD, Dr. Reynoso INJECTION OF EYE DRUG Right 08/04/2023 #47 Eylea OD; Dr Reynoso INJECTION OF EYE DRUG Right 09/29/2023 #48 Eylea OD, Dr. Reynoso INJECTION OF EYE DRUG Right 12/11/2023 # 49 Eyela OD, Dr. Reynoso INJECTION OF EYE DRUG Right 02/09/2024 # 50 Eylea OD, Dr. Reynoso INJECTION OF EYE DRUG Right 04/19/2024 # 51 Eylea OD, Dr. Reynoso INJECTION OF EYE DRUG Right 06/16/2024 #52 Eylea OD, Dr. Reynoso INJECTION OF EYE DRUG Right 08/16/2024 #53 Eylea OD, Dr. Reynoso INJECTION OF EYE DRUG Right 10/21/2024 #54 Eylea OD, Dr. Reynoso INJECTION OF EYE DRUG Right 12/16/2024 # 55 Eylea OD, Dr. Reynoso LIGATE/CUT OVIDUCT(S) 1974 MAMMOGRAM - BILATERAL 01/07/2005 birad 2 MAMMOGRAM - BILATERAL 06/23/2008 birad code 2 MAMMOGRAM SCREENING-BILATERAL 01/04/2004 bengin findings, yearly mammograms appropriate, birad code 2 MISCELLANEOUS ORDER ([facility] ONLY) Right 03/26/2017-03/26/2018 EYLEA OD CONSENT SIGNED, Dr. Reynoso MISCELLANEOUS ORDER ([facility] ONLY) Right 04/07/2018-04/07/2019 Eylea OD consent signed, Dr. Reynoso MISCELLANEOUS ORDER ([facility] ONLY) ACT 112 SIGNED, Dr. Reynoso (12-30-2018) MISCELLANEOUS ORDER ([facility] ONLY) Right 04/20/2019-04/20/2020 Eylea OD consent signed, MISCELLANEOUS ORDER ([facility] ONLY) Right 08/10/2019-08/10/2020 LUCENTIS 0.5MG CONSENT OD SIGNED; DR REYNOSO MISCELLANEOUS ORDER ([facility] ONLY) Right 05/09/2020-05/09/2021 Eylea OD consent signed, OTHER Eylea OD Consent signed 06/13/2021-06/13/22 OTHER (INFORMATION) EYLEA OU CONSENT SIGNED Dr. Corbin (exp 07-25-23) OTHER (INFORMATION) CONSENT OU EYLEA exp 08/04/24; Dr Reynoso OTHER (INFORMATION) Eylea OU consent Dr. Reynoso/Cristóbal expires 08/16/2025 REMOVAL OF THYROID LESION 1999 REMOVE CATARACT, INSERT LENS PROSTH Right 02/02/2017 right EXTRACAPSULAR CATARACT REMOVAL WITH INTRAOCULAR LENS performed by Gabriel Acosta MD at OR [facility] REMOVE CATARACT, INSERT LENS PROSTH Left 02/09/2017 left EXTRACAPSULAR CATARACT REMOVAL WITH INTRAOCULAR LENS performed by Gabriel Acosta MD at OR [facility] Medications: Current medication list reviewed. Current Facility-Administered Medications Medication Dose Route Frequency Provider Acetaminophen (Tylenol) tab 975 mg 975 mg Oral Q8H Juliana Farrell CRNP [START ON 01/31/2025] chlorhexidine gluconate cloth 2 % pad External Daily 1000 Juliana Farrell CRNP Docusate Sodium (Colace) cap 100 mg 100 mg Oral BID(AM/PM) Juliana Farrell CRNP [START ON 01/31/2025] levETIRAcetam (Keppra) 500 mg in 100 mL ivpb *LOCKED DOSE* 500 mg IV PiggybackBID(AM/PM) Juliana Farrell CRNP NSS infusion Intravenous Continuous Juliana Farrell CRNP ondansetron ODT (Zofran) tab 4 mg 4 mg On Tongue Q6H PRN Juliana Farrell CRNP Or ondansetron (Zofran) inj 4 mg 4 mg IV Push Q6H PRN Juliana Farrell CRNP oxyCODONE (Oxy IR) tab 5 mg 5 mg Oral Q4H PRN Juliana Farrell CRNP oxyCODONE (Roxicodone) oral syrup 2.5 mg 2.5 mg Oral Q4H PRN Juliana Farrell CRNP senna (Senokot) 2 Tablet 2 Tablet Oral BID(AM/PM) Juliana Farrell CRNP Allergies: Sertraline hcl, Simvastatin, and Sulfa antibiotics Social History: Lives in [place] Family History: Per HPI. Review of Systems: Ten-point review of systems negative except as otherwise noted in above HPI. Physical Exam: BP: 115 mmHg/75 mmHg (01/30/252099) Pulse: 67 (01/30/252099) Resp: 17 (01/30/252099) Temp: 37.11 C (01/30/251999) Temp Summary: Temp Min: 36.9 °C (98.4 °F) Max: 37.2 °C (99 °F) SpO2: 96 % (01/30/252099) O2 flow rate: Supplemental O2 Delivery: General: healthy appearing individual of stated age, NAD Neurologic: oriented to person, seemingly aphasia type speech. Tangential, illogical HEENT: normocephalic, right periorbital hematoma MMM, trachea midline Cardiovascular: pulses regular in periphery Pulmonary: no increased work of breathing Skin: No erythema, edema, or ecchymosis except as stated below Pelvis: TTP on right side. Pelvic binder in place, ecchymosis over right hip, stable to AP, ML compression MSK: RUE: Skin intact.eccymosis over dorsum of wrist, some in various states. TTP over distal radius. Stable to shuck. Spontaneously moving extremity. Able to flex and extend all digits. Exam limited due to patient comprehension. Seemingly intact sensation Non-tender to palpation throughout. No obvious crepitus or deformity. Compartments are soft and compressible. 2+ radial pulse LUE: Skin intact. Seeimingly non-tender to palpation throughout. No obvious crepitus or deformity. No pain w/ passive ROM of all joints. Compartments are soft and compressible. Sensation seemingly intact Spontaneously moving extremity 2+ radial pulse RLE: Skin intact. Ecchymosis over right hip. Ttp over right hip otherwise NTTP. Ecchymosis over right knee but NTTP. Able to SLR No pain with log roll No obvious crepitus or deformity. No pain w/ passive ROM of all joints. Compartments are soft and compressible. SILT seemingly intact to dorsum and plantar foot +EHL/FHL/Ankle dorsiflexion/plantarflexion 2+ DP LLE: Skin intact. Seemingly NTTP Able to SLR No pain with log roll No obvious crepitus or deformity. No pain w/ passive ROM of all joints. Compartments are soft and compressible. SILT seemingly intact to dorsum and plantar foot +EHL/FHL/Ankle dorsiflexion/plantarflexion 2+ DP LABS: Lab Results Component Value Date/Time WBC 12.73 (H) 01/30/2025 05:09 PM WBC 6.72 03/07/2013 08:28 AM WBC 6.7 01/31/1997 07:31 AM WBC NEGATIVE 01/31/1997 07:31 AM HGB 12.5 01/30/2025 05:09 PM HGB 14.5 03/07/2013 08:28 AM HGB 14.6 01/31/1997 07:31 AM INR 1.0 01/30/2025 05:09 PM Imaging: Imaging independently reviewed Demonstrating an right intraarticular distal radius fracture without significant displacement. Diffuse osteopenia Assessment: Sangeeta is a 79 year old female s/p unwitnessed FFS sustaining right minimally displaced distal radius fracture. Closed, seemingly NVI. Plan: - Procedure Note: Patient placed in well padded reverse sugar tong splint. Patient tolerated procedure well. - Post reduction xrays ordered . Post reduction CT ordered -patient admitted to trauma ICU - WBS: NWB RUE - Pain control per primary -discussed possible non op vs operative intervention -pending right hip imaging, will review - Ice, elevate extremity to the level of the heart. - No plan for urgent surgical intervention at this time - OK to d/c from ortho perspective (pending review of right hip imaging) - Will arrange ortho f/u Given the nature of the patient's traumatic high energy/open injuries, along with the patient's underlying co-morbidities, the patient was informed that she is at higher risk of complications including but not limited to nonunion, malunion, infection, loss of fixation/hardware failure, hematoma/seroma, and the possible need for additional procedures/surgeries as indicated. Provisional care provided definitive to follow at a later date per attending Patient will be discussed with the attending authorization nurse, Dr. Juarez Cosigned by Aravind Juarez MD at 01/31/2025 7:07 AM EDT Associated attestation - Aravind Juarez MD - 01/31/2025 7:07 AM EDT Ortho Attending Attestation 01/31/25 I reviewed the history, physical examination, radiographs and other findings with the resident physician. I discussed the management of the patient with the resident physician and I agree with the plan of care. 79 yo F with fall and found to have closed distal radius fracture, intraarticular. Provisional careprovided in ED. No acute surgical intervention planned. Will arrange outpatient hand follow up. Femur films obtained show no evidence of acute fracture. Aravind Juarez MD documented in this encounter Nursing Notes * Gwen Caballero RN - 02/02/2025 9:00 PM EDT Dual Licensed Skin Assessment completed by Gwen De La Cruz RN and Cheryl Tong RN. The patient is/has a N/A Skin Breakdown (includes non blanchable erythema): Yes. Wound Type: Other, location Laceration on R eye - sutured, approximated R forearm - splinted Scattered ecchymosis Wound Ostomy Nurse Notified: No - wound ostomy not needed at this time Nursing interventions: Q2 turning and repositioning, barrier creams, moisture absorbent pads, wedges and pillows to offload pressure, foam dressings * Adamaris Hermosillo RN - 01/31/2025 10:00 PM EDT Dual Licensed Skin Assessment completed by Kimmy Velasquez RN and Adamaris Yuan RN. The patient is/has a N/A Skin Breakdown (includes non blanchable erythema): Yes. Wound Type: Traumatic/Surgical Right forearm, splinted, gauze and ilir wrap Right eye, sutures, approximated, no drainage Various sites of ecchymoses Heels, Elbows, Sacrum, skin is intact. Patient is on malcom bed, q2 turns, wedges for off loading * Julianne Marie RN - 01/30/2025 7:49 PM EDT Dual Licensed Skin Assessment completed by Natalie Santos and Natalie Triana. The patient is/has a N/A Skin Breakdown (includes non blanchable erythema): No Abrasions to right knee, right eyebrow lacerations with sutures documented in this encounter ED Notes * Matteo Riggs DO - 01/30/2025 5:12 PM EDT HISTORY OF PRESENT ILLNESS Allie Diaz is a 79 year old female who presents to the ED for evaluation of Trauma. The patientwas seen at 01/30/25 1706. Following history is provided by EMS. The patient is a 79-year-old female, with Plavix yes, [facility] which [facility], transferred to [facility] for trauma evaluation for concern of rib fracture and SDH. The patient is presents confused on exam and reports right-sided hip pain. Review of Systems Unable to perform ROS: Acuity of condition The patient's allergies, past history, and medications were reviewed. PHYSICAL EXAM Initial Vitals (see all): BP 156/70 | Pulse 74 | Resp 20 | Temp 98.8 | O2 95 %, Room Air, None | Weight 89.5 kg | Height 165.1 cm | BMI 32.83 kg/m2 Initial Pain Assessment (see all): 0 (no pain)/10 ([facility] Adult Scale 0-10 (18 years and older)) Physical Exam Vitals and nursing note reviewed. Constitutional: General: She is not in acute distress. Appearance: She is well-developed. HENT: Head: Normocephalic and atraumatic. Right Ear: External ear normal. Left Ear: External ear normal. Nose: Nose normal. Mouth/Throat: Mouth: Mucous membranes are moist. Eyes: General: No scleral icterus. Right eye: No discharge. Left eye: No discharge. Conjunctiva/sclera: Conjunctivae normal. Cardiovascular: Rate and Rhythm: Normal rate and regular rhythm. Heart sounds: No murmur heard. Pulmonary: Effort: Pulmonary effort is normal. No respiratory distress. Breath sounds: Normal breath sounds. No stridor. No wheezing, rhonchi or rales. Chest: Chest wall: No tenderness. Abdominal: General: There is no distension. Palpations: Abdomen is soft. Tenderness: There is no abdominal tenderness. There is no guarding or rebound. Musculoskeletal: General: Tenderness (Right hip and right sided rib ecchymoses and tenderness) present. No swelling or deformity. Cervical back: Neck supple. No tenderness. Comments: 5/5 strength in all extremities Skin: General: Skin is warm and dry. Capillary Refill: Capillary refill takes less than 2 seconds. Findings: Bruising present. Comments: Laceration of the right eyebrow repaired by sutures YEAST PUMPER Neurological: Mental Status: She is alert. GCS: GCS eye subscore is 4. GCS verbal subscore is 4. GCS motor subscore is 6. Comments: Sensation intact and equal in all extremities PROCEDURES AND TREATMENTS ED Orders | ED Results MEDICAL DECISION MAKING Nursing notes and vital signs were reviewed. ED consults were placed. Amount and/or Complexity of Data Reviewed Labs: ordered. Risk Decision regarding hospitalization. Differential diagnosis includes but is not limited to mechanical fall, syncope, cardiac arrhythmia,intracranial hemorrhage, fracture, dislocation Workup and interpretation as documented in ED course. In summary, the patient is a 79 year old year old female, with a past medical history significant for Plavix use, who presented for evaluation of SDH s/p unwitnessed fall from standing at [facility] at11:00 a.m.. Additional HPI/ROS as above. Pt was brought to the resuscitation room by EMS. Full ATLS protocol was initiated under the direction of the ED and Trauma attendings. Hemodynamically Stable on presentation. Pt's airway was self maintained and breathing was adequate. Initial circulation assessment was unremarkable Physical exam was significant for diffuse 71-year-old with ecchymoses over the right hip. Additional PE as above. Additional treatments provided by Trauma service (see separate note). Patient's care and further evaluation was released to the Trauma service once patient was taken to the CT scanner. Trauma Surgery was present at the bedside for the entire ED stay and care was transferred to them for continued management. Based on the patients age, coexisting illnesses, exam and lab findings the decision to treat as an inpatient was made. Clinical Impressions SAH (subarachnoid hemorrhage) (HCC) Bruising Closed fracture of distal end of right radius, unspecified fracture morphology, initial encounter Encephalopathy acute Disposition Admitted. I discussed the management of this patient with the admitting provider and I made a decision to admit the patient. Admission Order Ordered Status . 01/30/25 1728 Admit for Inpatient Services (incl ZPO) ONCE Completed Discharge Medications This print group is not available in inpatient encounters. Please contact a professional system administrator. Matteo Riggs was the attending physician who supervised the care of this patient. Maxi Benjamin DO ATTENDING ATTESTATION I have seen and examined this patient on the 01/30/2025 visit. I have discussed the patient's management with the provider listed above and agree with the note, findings, and plan of care. documented in this encounter Miscellaneous Notes * Diagnostic Clarification - Amber Rebolledo MD - 02/03/2025 10:20 AM EDT The patient has been diagnosed with a traumatic and Osteoporotic pathological fracture. * Ancillary Progress Note - Lacie Lee MSW - 02/02/2025 2:25 PM EDT CARE MANAGEMENT - TRAUMA DISCHARGE NOTE [address] [address] Name: Allie Diaz Location: [address] Date: 02/02/2025 Time: 2:25 PM The following coordination of care and discharge plan has been coordinated with the care team, patient, family and/or caregiver according to the patients’ needs and preferences. Discharge Discharge Discharge Transportation: BLS (02/02/25 1400) Date of scheduled discharge transportation: 02/03/25 (02/02/25 1400) Final Discharge Plan (Complete only at time of Discharge): IP Rehab (02/02/25 1400) Destination - Admitted Since 01/30/2025 Service Provider Services Address Phone Fax Patient Preferred Last Updated [facility] [address] [place] [address] [phone] -- Lacie Lee MSW 02/02/2025 [id number] Narrative: Pt is dc to [facility] tomorrow, at 10am via [place] [facility]. Sw made pt and called her sister and made her aware of dc. Discharge destination time-out called during BOOST rounds, all parties agreeable with transition plan of care. * Ancillary Progress Note - Lacie Lee MSW - 02/02/2025 10:16 AM EDT CARE MANAGEMENT - TRAUMA TRANSITION NOTE [address] [address] Name: Allie Diaz Location: [facility] [place] G503/A Date: 02/02/2025 Time: 10:16 AM Risk Stratification Risk Stratification Psycho Social / Medical Concerns Identified: Adjustment to illness/injury (01/31/25 1300) OBRA or OPTIONS needed for placement: No (01/31/25 1300) Readmission Risk Score: 14.98 (02/02/25 0800) AM-PAC Score With Stairs : 17 (02/02/25 0943) Caregiver Information Emergency Contacts Name Relation Home Work Mobile Gladys Ramirez Other - (no specific identity) [phone] Other Contacts Name Relation Home Work Mobile BELKIS DIAZ Other - (no specific identity) [phone] Transition of Care Checklist Narrative: PMR did the appeal yesterday and was told by [facility] to have therapy see the pt again candacesujey for auth. Therapy saw pt today and auth was resubmitted. Update provided to Mary Beth with [facility]. SW will continue to follow, address pt's evolving needs, and provide psychosocial support. PT was granted a acute rehab auth , [id number] with update being due on Thursday. Anticipated Transportation at Discharge: BLS Comments: Patient/Family Expectations: rehab Transition Planning Transition Planning Transition Plan/Considerations: Needs identified - Discharge planning services explained to patientfamily / caregiver - Choices offered (01/31/25 1300) Transition plan discussed with - Enter name and phone #: pt (01/31/25 1300) Additional Considerations: Care Management will continue to monitor and assist with discharge planning needs * Ancillary Progress Note - Radha Barroso COTA/L - 02/02/2025 9:48 AM EDT PROGRESS NOTE - Occupational Therapy [facility] [place] [address] Name: Allie Diaz Location: [facility] [place] G503/A Date: 02/02/2025 Time: 9:48 AM Allei Diaz is a 79 year old female. Patient Status: Inpatient Insurance: Payor: [facility] GOLD Plan: P PREFERRED COMPLETE RX MP-QD Product Type: *No Product type* Patient Seen: at bedside, nursing cleared patient for therapy Patient Identified By: Name, ID Band and Date Diagnosis: tSAH, SDH, R distal radius fracture (02/02/25947) Status of treatment: Treatment completed (02/02/25947) Orders: OT evaluation and treatment (01/31/25957) Weight Bearing Status: Non-weight bearing;RUE (02/02/25947) Precautions: Alarms;Falls;Safety (NWB RUE) (02/02/25947) Total Treatment Time: 30 (02/02/25947) Subjective: Agreeable Pain: No complaints of pain Observations Consciousness: Alert (02/02/25947) Orientation: Person;Place (time with choices, situation not assessed) (02/02/25947) Current Functional Status: Activities of Daily Living: Self Care Grooming: Supervision (Please comment) (brush hair) (02/02/25947) Toileting: Moderate Assistance (d/t balance) (02/02/25947) Dressing Upper Body: Supervision (Please comment) (don/doff gown) (02/02/25947) Lower Body: Maximal Assistance (don/doff socks d/t balance) (02/02/25947) Functional Ambulation Assistive Device: Other - Describe (R platform walker) (02/02/25947) Level of Assistance: Minimal Assistance (02/02/25947) OT Transfers Sit-Stand: Minimal Assistance (02/02/25947) Stand-Sit: Minimal Assistance (02/02/25947) Toilet: Minimal Assistance (x2) (02/02/25947) Balance Sit (Static): Fair (02/02/25947) Sit (Dynamic): Fair (-) (02/02/25947) Stand (Static): Poor (+) (02/02/25947) Stand (Dynamic): Poor (+) (02/02/25947) Patient Education Education Topic: Role of OT;Plan of care goals (02/02/25947) Review of Precautions: Safety;Fall;Weight Bearing Status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 (subarachnoid hemorrhage) (HCC) [I60.9] Pulmonary Diagnosis: none . Prescriptions/Home Medications/Durable Medical Equipment: none. Recommended New home medications/durable medical equipment/outpatient pulmonary/sleep referral none. * Medical Necessity - Shanell Garrett RN - 01/30/2025 6:15 PM EDT AdmissionCare Guideline: Subarachnoid Hemorrhage (Nonsurgical), Inpatient Based on the indications selected for the patient, the bed status of Inpatient was determined to beMET The following indications were selected as present at the time of evaluation of the patient: - Clinical Indications for Admission to Inpatient Care - Admission is indicated for 1 or more of the following: - Acute nontraumatic subarachnoid hemorrhage AdmissionCare documentation entered by: Shanell Garrett [facility], 28th edition, Copyright © 2023 [facility] All Rights Reserved. [id number]:00 Solely for purpose of utilization review and payment; not a diagnostic tool * ED Zinc Furnace Charger Note - Gilma Ahmadi RN - 01/30/2025 5:56 PM EDT Neurosurgery at bedside at this time. * ED Zinc Furnace Charger Note - Gilma Ahmadi RN - 01/30/2025 5:40 PM EDT Xray at bedside for right arm images. documented in this encounter Plan of Treatment Upcoming Encounters Date Type Department Care Team (Late st Contact Info) Description 02/13/2025 10:30 AM EDT Office Visit Orthopaedics Dunia Franco [address] [facility] [place] [phone] Ines Vargas PA-C [address] [facility] [place] [id number] 02/14/2025 9:45 AM EDT Imaging Radiology [facility] 1st Floor, [place] [address] [place] [phone] 02/27/2025 11:00 AM EDT Office Visit Family Practice [facility] [address] [place] [address] Janice Freeman PA-C [address] [place] [address] 03/08/2025 9:00 AM EDT Imaging Radiology [facility] [address] [place] [phone] 03/08/2025 11:00 AM EDT Office Visit Rheumatology [facility] [address] [place] [phone] Gio Zaragoza CRNP [facility] [facility] [place] [address] Scheduled Orders Name Type Priority Associated Diagnoses Orde r Schedule XR PELVIS 1 VIEW Medical Imaging Routine One Time for 1 Occurrences starting 01/30/2025 until 01/30/2025 CT HEAD/BRAIN WO CONTRAST Medical Imaging Routine SDH (subdural hematoma) (HCC) Expected: 02/14/2025, Expires: 03/03/2026 Scheduled Procedures Name Priority Associated Diagnoses Date/Ti [...] 11/29/2020, 11/16, 11/07/2014, Additional history exists TSH 11/29/2025 11/29/2024, 01/14, 01/15/2023, Additional history exists GFR 02/02/2026 02/02/2025, 01/14, 01/31/2025, Additional history exists DTap/Tdap Vaccines (3 - Td or Tdap) 07/22/2032 07/22/2022, 03/18/2009, 03/29/1999 RETIRED - COLONOSCOPY-EVERY 5 YRS AGES 18-100 Discontinued 11/29/2020, 11/29/2020, 11/07/2014, Additional history exists Influenza Vaccine (FLU shot) Completed 08/01/2024, 07/29/2023, 07/22/2022, Additional history exists VITAMIN D LEVEL ONCE IN A LIFETIME-USE SMARTSET# [id number] Completed 02/01/2025, 01/15/2023, 07/18/2021, Additional history exists [...] this encounter Medical Devices Implanted Type Area Superintendent Quarry Device Identifier Shelf Expiration Date Model / Serial / Lot Sofport Intraocular Posterior Chamber Lens Implanted:Qty: 1 on 02/02/2017 by Gabriel Acosta MD at OR [facility] Right: Eye [employer] 05/15/2021 [id number] / [id number] / [id number] Lens Intraoc 29.0 - [id number] - [id number] Implanted:Qty: 1 on 02/09/2017 by Gabriel Acosta MD at OR [facility] Left: Eye [employer] 12/16/2018 [id number] / [id number] / [id number] Clip Quick 2.8mm 230cm - [id number] Implanted:Qty: 2 on 11/29/2020 by Sharon Benitez MD at ENDOSCOPY [facility] [id number] 11/15/2022 [id number] / documented as of this encounter Procedures Procedure Name Priority Date/Time Associated Diagnosis Comments GLUCOSE METER, POINT OF CARE [facility] 02/03/2025 7:35 AM EDT CBC Routine 02/03/2025 7:06 AM EDT GLUCOSE METER, POINT OF CARE [facility] 02/02/2025 9:21 PM EDT GLUCOSE METER, POINT OF CARE [facility] 02/02/2025 4:57 PM EDT GLUCOSE METER, POINT OF CARE [facility] 02/02/2025 11:12 AM EDT GLUCOSE METER, POINT OF CARE [facility] 02/02/2025 7:52 AM EDT BASIC METABOLIC PANEL Routine 02/02/2025 6:22 AM EDT PHOSPHORUS Routine 02/02/2025 6:22 AM EDT CBC Routine 02/02/2025 6:22 AM EDT MAGNESIUM Routine 02/02/2025 6:22 AM EDT GLUCOSE METER, POINT OF CARE [facility] 02/01/2025 9:06 PM EDT GLUCOSE METER, POINT OF CARE [facility] 02/01/2025 5:40 PM EDT CBC STAT 02/01/2025 5:32 PM EDT GLUCOSE METER, POINT OF CARE [facility] 02/01/2025 11:29 AM EDT GLUCOSE METER, POINT OF CARE [facility] 02/01/2025 8:13 AM EDT 25-HYDROXY VITAMIN D Add-on 02/01/2025 6:34 AM EDT BASIC METABOLIC PANEL Routine 02/01/2025 6:34 AM EDT PHOSPHORUS Routine 02/01/2025 6:34 AM EDT CBC Routine 02/01/2025 6:34 AM EDT MAGNESIUM Routine 02/01/2025 6:34 AM EDT GLUCOSE METER, POINT OF CARE [facility] 01/31/2025 9:56 PM EDT GLUCOSE METER, POINT OF CARE [facility] 01/31/2025 5:24 PM EDT GLUCOSE METER, POINT OF CARE [facility] 01/31/2025 11:29 AM EDT BASIC METABOLIC PANEL Routine 01/31/2025 7:10 AM EDT PHOSPHORUS Routine 01/31/2025 7:10 AM EDT CBC Routine 01/31/2025 7:10 AM EDT MAGNESIUM Routine 01/31/2025 7:10 AM EDT EXTRA URINE ALIQUOT STAT 01/31/2025 1 :35 AM EDT URINALYSIS, REFLEX TO CULTURE Routine 01/31/2025 1:35 AM EDT URINALYSIS, REFLEX TO CULTURE (CUP ONLY) Routine 01/31/2025 1:35 AM EDT URINALYSIS, REFLEX TO CULTURE (NOT FOR NEUTROPENIC PATIENTS) Routine 01/31/2025 1:35 AM EDT TOXICOLOGY, URINE SCREEN W/ CONFIRMATION STAT 01/31/2025 1:35 AM EDT CULTURE, URINE, QUANTITATIVE STAT 01/31/2025 1:35 AM EDT XR FEMUR MINIMUM 2 VIEWS STAT 01/31/2025 12:30 AM EDT Unilateral primary osteoarthritis, right knee Unspecified fall, initial encounter XR HIP UNILAT 2-3 VIEWS INCLUDING AP PELVIS STAT 01/31/2025 12:30 AM EDT Unilateral primary osteoarthritis, right knee Unspecified fall, initial encounter XR WRIST 3 OR MORE VIEWS STAT 01/31/2025 12:30 AM EDT Unspecified fracture of the lower end of right radius, subsequent encounter for closed fracture with routine healing Exposure to other specified factors, initial encounter Presence of right artificial wrist joint CT UPPER EXTREMITY RIGHT WO CONTRAST STAT 01/31/2025 12:13 AM EDT Other fracture of upper end of right radius, initial encounter for closed fracture Exposure to other specified factors, initial encounter CT HEAD/BRAIN WO CONTRAST STAT 01/31/2025 12:13 AM EDT SAH (subarachnoid hemorrhage) (HCC) Nontraumatic intracerebral hemorrhage, unspecified (HCC) CBC Routine 01/30/2025 11:17 PM EDT HC ECG TRACING ONLY STAT 01/30/2025 8 :32 PM EDT Screening for cardiovascular condition XR KNEE 1-2 VIEWS STAT 01/30/2025 5:5 2 PM EDT XR HAND 3 OR MORE VIEWS STAT 01/30/2025 5:52 PM EDT XR WRIST 3 OR MORE VIEWS Routine 01/30/2025 5:52 PM EDT XR FOREARM 2 VIEWS STAT 01/30/2025 5: 52 PM EDT XR ELBOW 3 OR MORE VIEWS STAT 01/30/2025 5:52 PM EDT HC ECG TRACING ONLY STAT 01/30/2025 5 :49 PM EDT Screening for cardiovascular condition RADIOLOGY EXAM - CT (IMAGES ONLY, NO REPORT) Routine 01/30/2025 5:45 PM EDT RADIOLOGY EXAM - CT (IMAGES ONLY, NO REPORT) Routine 01/30/2025 5:45 PM EDT RADIOLOGY EXAM - CT (IMAGES ONLY, NO REPORT) Routine 01/30/2025 5:45 PM EDT RADIOLOGY EXAM - CT (IMAGES ONLY, NO REPORT) Routine 01/30/2025 5:45 PM EDT RADIOLOGY EXAM - CT (IMAGES ONLY, NO REPORT) Routine 01/30/2025 5:44 PM EDT RADIOLOGY EXAM - CT (IMAGES ONLY, NO REPORT) Routine 01/30/2025 5:44 PM EDT CTA HEAD/CTA NECK STAT 01/30/2025 5:2 2 PM EDT Other specified disorders of brain Other abnormal findings on diagnostic imaging of central nervous system Abnormal findings on diagnostic imaging of other specified body structures Nontraumatic subdural hemorrhage, unspecified (HCC) 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) Occlusion and stenosis of right carotid artery Exposure to other specified factors, initial encounter XR CHEST 1 VIEW Routine 01/30/2025 5:15 PM EDT DIFFERENTIAL, AUTOMATED STAT 01/30/2025 5:09 PM EDT BASIC METABOLIC PANEL STAT 01/30/2025 5:09 PM EDT ABO/RH STAT 01/30/2025 5:09 PM EDT TYPE AND SCREEN STAT 01/30/2025 5:09 PM EDT CBC STAT 01/30/2025 5:09 PM EDT PT INR STAT 01/30/2025 5:09 PM EDT AST STAT 01/30/2025 5:09 PM EDT LACTATE STAT 01/30/2025 5:09 PM EDT ETHANOL, MEDICAL STAT 01/30/2025 5:09 PM EDT APTT STAT 01/30/2025 5:09 PM EDT CBC STAT 01/30/2025 5:09 PM EDT documented in this encounter Results * GLUCOSE METER, POINT OF CARE (02/03/2025 7:35 AM EDT) [facility] Glucose - POCT 101 70 - 120 mg/dL 02/03/2025 2:[address] [facility] Blood Whole blood specimen / Unknown 02/03/2025 7:35 AM EDT 02/03/2025 2:38 PM EDT us Amber Rebolledo MD LAB POINT OF CARE TE ST DOCKED DEVICE UNSOLICITED RESULTS Final Result [facility] [address] [place] [address] * (ABNORMAL) CBC (02/03/2025 7:06 AM EDT) [facility] WBC 6.31 4.00 - 10.80 K/uL 02/03/2025 7:23 AM EDT LABORATORY [facility] [place] RBC 3.70 3.85 - 5.15 M/uL 02/03/2025 7:23 AM EDT LABORATORY [facility] [place] HGB 10.5(L) 12.0 - 15.3 g/dL 02/03/2025 7:23 AM EDT LABORATORY [facility] [place] HCT 34.2(L) 36.0 - 45.2 % 02/03/2025 7:23 AM EDT LABORATORY [facility] [place] MCV 92.4 81.5 - 97.5 fL 02/03/2025 7:23 AM EDT LABORATORY [facility] [place] MCH 28.4 27.0 - 34.0 pg 02/03/2025 7:23 AM EDT LABORATORY [facility] [place] MCHC 30.7 32.0 - 36.0 g/dL 02/03/2025 7:23 AM EDT LABORATORY [facility] [place] RDW 14.3 11.5 - 15.5 % 02/03/2025 7:23 AM EDT LABORATORY [facility] [place] PLT 196 140 - 400 K/uL 02/03/2025 7:23 AM EDT LABORATORY [facility] [place] MPV 9.7 6.6 - 11.1 fL 02/03/2025 7:23 AM EDT LABORATORY [facility] [place] nRBCs 0 <=0 /100 WBCs 02/03/2025 7:23 AM EDT LABORATORY [facility] [place] Blood Venous blood specimen / Unknown Venipuncture / Unknown 02/03/2025 7:06 AM EDT 02/03/2025 7:15 AM EDT us Jayy Brock DO LAB BLOOD ORDERABLES Fi nal Result LABORATORY [facility] [place] [address] [place], [place] [id number] * (ABNORMAL) GLUCOSE METER, POINT OF CARE (02/02/2025 9:21 PM EDT) [facility] Glucose - POCT 145(H) 70 - 120 mg/dL 02/02/2025 9:35 PM EDT [facility] Blood Whole blood specimen / Unknown 02/02/2025 9:21 PM EDT 02/02/2025 9:35 PM EDT us Amber Rebolledo MD LAB POINT OF CARE TE ST DOCKED DEVICE UNSOLICITED RESULTS Final Result [facility] [address] [place] [address] * (ABNORMAL) GLUCOSE METER, POINT OF CARE (02/02/2025 4:57 PM EDT) Glucose - POCT 150(H) 70 - 120 mg/dL 02/02/2025 5:19 PM EDT [employer] Blood Whole blood specimen / Unknown 02/02/2025 4:57 PM EDT 02/02/2025 5:19 PM EDT us Amber Rebolledo MD LAB POINT OF CARE TE ST DOCKED DEVICE UNSOLICITED RESULTS Final Result Performing Organization Address City/[facility]/ZIP Co de Phone Number [facility] [address] [place] [address] * (ABNORMAL) GLUCOSE METER, POINT OF CARE (02/02/2025 11:12 AM EDT) Glucose - POCT 162(H) 70 - 120 mg/dL 02/02/2025 11:15 AM EDT [facility] Blood Whole blood specimen / Unknown 02/02/2025 11:12 AM EDT 02/02/2025 11:15 AM EDT us Amber Rebolledo MD LAB POINT OF CARE TE ST DOCKED DEVICE UNSOLICITED RESULTS Final Result [facility] [address] [place] [address] * GLUCOSE METER, POINT OF CARE (02/02/2025 7:52 AM EDT) Pathologist [facility] Glucose - POCT 85 70 - 120 mg/dL 02/02/2025 8:[address] [facility] Blood Whole blood specimen / Unknown 02/02/2025 7:52 AM EDT 02/02/2025 8:57 AM EDT us Amber Rebolledo MD LAB POINT OF CARE TE ST DOCKED DEVICE UNSOLICITED RESULTS Final Result [facility] [address] [place] [address] * (ABNORMAL) CBC (02/02/2025 6:22 AM EDT) [facility] WBC 7.00 4.00 - 10.80 K/uL 02/02/2025 6:48 AM EDT LAB[facility]ATORY [facility] RBC 3.77 3.85 - 5.15 M/uL 02/02/2025 6:48 AM EDT LAB[facility]ATORY [facility] HGB 10.7(L) 12.0 - 15.3 g/dL 02/02/2025 6:48 AM EDT LAB[facility]ATORY [facility] HCT 34.2(L) 36.0 - 45.2 % 02/02/2025 6:48 AM EDT LAB[facility]ORY [facility] MCV 90.7 81.5 - 97.5 fL 02/02/2025 6:48 AM EDT LAB[facility]ORY [facility] MCH 28.4 27.0 - 34.0 pg 02/02/2025 6:48 AM EDT LAB[facility]ORY [facility] MCHC 31.3 32.0 - 36.0 g/dL 02/02/2025 6:48 AM EDT LAB[facility]ORY [facility] RDW 14.4 11.5 - 15.5 % 02/02/2025 6:48 AM EDT LAB[facility]ORY [facility] PLT 190 140 - 400 K/uL 02/02/2025 6:48 AM EDT LAB[facility]ORY [facility] MPV 9.6 6.6 - 11.1 fL 02/02/2025 6:48 AM EDT LAB[facility]ORY [facility] nRBCs 0 <=0 /100 WBCs 02/02/2025 6:48 AM EDT [facility] Blood Venous blood specimen / Unknown Venipuncture / Unknown 02/02/2025 6:22 AM EDT 02/02/2025 6:30 AM EDT Jayy Brock LAB BLOOD ORDERABLES Fi nal Result Performing Organization Address [facility] Co de Phone Number LABORATORY [facility] [address] [place] [address] * PHOSPHORUS (02/02/2025 6:22 AM EDT) Phosphorus 3.5 2.5 - 4.8 mg/dL 02/02/2025 7:07 AM EDT LAB[facility]ORY [facility] Blood Venous blood specimen / Unknown Venipuncture / Unknown 02/02/2025 6:22 AM EDT 02/02/2025 6:30 AM EDT Juliana Farrell ELMER LAB BLOOD ORDERABLES Glo l Result Performing Organization Address [facility] de Phone Number LABORATORY [facility] [address] [place] [address] * MAGNESIUM (02/02/2025 6:22 AM EDT) Magnesium 2.2 1.5 - 2.6 mg/dL 02/02/2025 7:07 AM EDT LABORATORY [facility] Blood Venous blood specimen / Unknown Venipuncture / Unknown 02/02/2025 6:22 AM EDT 02/02/2025 6:30 AM EDT Juliana DURANDNP LAB BLOOD ORDERABLES Glo l Result Performing Organization Address [facility] de Phone Number LABORATORY [facility] [address] [place] [address] * (ABNORMAL) BASIC METABOLIC PANEL (02/02/2025 6:22 AM EDT) BUN 23(H) 6 - 20 mg/dL 02/02/2025 7:07 AM EDT LABORATORY [facility] CREATININE 0.9 0.5 - 1.0 mg/dL 02/02/2025 7:07 AM EDT LAB[facility]ATORY [facility] EGFR 64 >=60 mL/min 02/02/2025 7:07 AM EDT LABORATORY C Comment:eGFR is calculated b ased on the CKD-EPI 2020 equation. SODIUM 141 135 - 146 mmol/L 02/02/2025 7:07 AM EDT LABORATORY [facility] POTASSIUM 4.2 3.5 - 5.1 mmol/L 02/02/2025 7:07 AM EDT LAB[facility]ATORY [facility] CHLORIDE 108(H) 98 - 107 mmol/L 02/02/2025 7:07 AM EDT LAB[facility]ATORY [facility] CO2 24 22 - 32 mmol/L 02/02/2025 7:07 AM EDT LABORATORY C ANION GAP 9 7 - 15 mmol/L 02/02/2025 7:07 AM EDT LABORATORY [facility] GLUCOSE 100 70 - 120 mg/dL 02/02/2025 7:07 AM EDT LABORATORY C CALCIUM 8.1(L) 8.4 - 10.2 mg/dL 02/02/2025 7:07 AM EDT LABORATORY [facility] [place] Blood Venous blood specimen / Unknown Venipuncture / Unknown 02/02/2025 6:22 AM EDT 02/02/2025 6:30 AM EDT us Juliana PAYNE LAB BLOOD ORDERABLES Glo l Result LABORATORY [facility] [address] [place] [address] * GLUCOSE METER, POINT OF CARE (02/01/2025 9:06 PM EDT) [facility] Glucose - POCT 96 70 - 120 mg/dL 02/01/2025 9:10 PM EDT [employer] Blood Whole blood specimen / Unknown 02/01/2025 9:06 PM EDT 02/01/2025 9:10 PM EDT us Amber Rebolledo MD LAB POINT OF CARE TE ST DOCKED DEVICE UNSOLICITED RESULTS Final Result [facility] [address] [place] [address] * (ABNORMAL) GLUCOSE METER, POINT OF CARE (02/01/2025 5:40 PM EDT) [facility] Glucose - POCT 138(H) 70 - 120 mg/dL 02/01/2025 6:[address] [facility] Blood Whole blood specimen / Unknown 02/01/2025 5:40 PM EDT 02/01/2025 6:34 PM EDT us Amber Rebolledo MD LAB POINT OF CARE TE ST DOCKED DEVICE UNSOLICITED RESULTS Final Result [facility] [address] [place] [address] * (ABNORMAL) CBC (02/01/2025 5:32 PM EDT) [facility] WBC 7.98 4.00 - 10.80 K/uL 02/01/2025 5:59 PM EDT LAB[facility]ATORY [facility] RBC 3.89 3.85 - 5.15 M/uL 02/01/2025 5:59 PM EDT LAB[facility]ORY [facility] HGB 11.0(L) 12.0 - 15.3 g/dL 02/01/2025 5:59 PM EDT LAB[facility]ORY [facility] HCT 34.7(L) 36.0 - 45.2 % 02/01/2025 5:59 PM EDT LAB[facility]ORY [facility] MCV 89.2 81.5 - 97.5 fL 02/01/2025 5:59 PM EDT LAB[facility]ORY [facility] MCH 28.3 27.0 - 34.0 pg 02/01/2025 5:59 PM EDT LAB[facility]ORY [facility] MCHC 31.7 32.0 - 36.0 g/dL 02/01/2025 5:59 PM EDT LAB[facility]ORY [facility] RDW 14.4 11.5 - 15.5 % 02/01/2025 5:59 PM EDT LAB[facility]ORY [facility] PLT 212 140 - 400 K/uL 02/01/2025 5:59 PM EDT LAB[facility] MPV 9.8 6.6 - 11.1 fL 02/01/2025 5:59 PM EDT LABORATORY [facility] nRBCs 0 <=0 /100 WBCs 02/01/2025 5:59 PM EDT LABORATORY [facility] Blood Venous blood specimen / Unknown Venipuncture / Unknown 02/01/2025 5:32 PM EDT 02/01/2025 5:48 PM EDT us Joanie Zamora DO LAB BLOOD ORDERABLES Fi nal Result LABORATORY [facility] [address] [place] [address] * GLUCOSE METER, POINT OF CARE (02/01/2025 11:29 AM EDT) Glucose - POCT 100 70 - 120 mg/dL 02/01/2025 11:36 AM EDT [employer] Blood Whole blood specimen / Unknown 02/01/2025 11:29 AM EDT 02/01/2025 11:36 AM EDT us Amber Rebolledo MD LAB POINT OF CARE TE ST DOCKED DEVICE UNSOLICITED RESULTS Final Result [facility] [address] [place] [address] * GLUCOSE METER, POINT OF CARE (02/01/2025 8:13 AM EDT) Glucose - POCT 101 70 - 120 mg/dL 02/01/2025 8:16 AM EDT [employer] Blood Whole blood specimen / Unknown 02/01/2025 8:13 AM EDT 02/01/2025 8:16 AM EDT us Amber Rebolledo MD LAB POINT OF CARE TE ST DOCKED DEVICE UNSOLICITED RESULTS Final Result [facility] [address] [place] [address] * 25-HYDROXY VITAMIN D (02/01/2025 6:34 AM EDT) 25-Hydroxy Vitamin D 21 >19 ng/mL 02/01/2025 10:41 AM EDT LABORATORY [facility] Blood Venous blood specimen / Unknown Venipuncture / Unknown 02/01/2025 6:34 AM EDT 02/01/2025 6:51 AM EDT Narrative LABORATORY [facility] - 02/01/2025 10:41 AM EDT Deficient: <20 ng/mL Insufficient: 20-29 ng/mL Recommended/Optimum:30-50 ng/mL Vitamin D intoxication is rare. If suspicious of Vitamin D toxicity, evaluation of serum Calcium and PTH is recommended. us Leandro Schmitt MD LAB BLOOD ORDERABLES Final Resul t LABORATORY [facility] [address] [place] [address] * (ABNORMAL) CBC (02/01/2025 6:34 AM EDT) WBC 7.10 4.00 - 10.80 K/uL 02/01/2025 7:04 AM EDT LABORATORY [facility] RBC 3.63 3.85 - 5.15 M/uL 02/01/2025 7:04 AM EDT LABORATORY [facility] [place] HGB 10.2(L) 12.0 - 15.3 g/dL 02/01/2025 7:04 AM EDT LABORATORY [facility] HCT 33.0(L) 36.0 - 45.2 % 02/01/2025 7:04 AM EDT LABORATORY [facility] MCV 90.9 81.5 - 97.5 fL 02/01/2025 7:04 AM EDT LABORATORY [facility] MCH 28.1 27.0 - 34.0 pg 02/01/2025 7:04 AM EDT LABORATORY GM MCHC 30.9 32.0 - 36.0 g/dL 02/01/2025 7:04 AM EDT LABORATORY GM RDW 14.4 11.5 - 15.5 % 02/01/2025 7:04 AM EDT LABORATORY GM PLT 169 140 - 400 K/uL 02/01/2025 7:04 AM EDT LABORATORY [facility] MPV 9.7 6.6 - 11.1 fL 02/01/2025 7:04 AM EDT LABORATORY [facility] [place] nRBCs 0 <=0 /100 WBCs 02/01/2025 7:04 AM EDT LABORATORY C Blood Venous blood specimen / Unknown Venipuncture / Unknown 02/01/2025 6:34 AM EDT 02/01/2025 6:51 AM EDT Jayy Brock DO LAB BLOOD ORDERABLES Fi nal Result LAB[facility]ATORY [facility] [place] [address] [place] [address] * PHOSPHORUS (02/01/2025 6:34 AM EDT) Phosphorus 3.6 2.5 - 4.8 mg/dL 02/01/2025 7:25 AM EDT LABORATORY C Blood Venous blood specimen / Unknown Venipuncture / Unknown 02/01/2025 6:34 AM EDT 02/01/2025 6:51 AM EDT Juliana Gwen PAYNE LAB BLOOD ORDERABLES Glo l Result Performing Organization Address [facility] Co de Phone Number LABORATORY [facility] [address] [place] [address] * MAGNESIUM (02/01/2025 6:34 AM EDT) Magnesium 2.1 1.5 - 2.6 mg/dL 02/01/2025 7:25 AM EDT LABORATORY C Blood Venous blood specimen / Unknown Venipuncture / Unknown 02/01/2025 6:34 AM EDT 02/01/2025 6:51 AM EDT Juliana Ayalalorie PAYNE LAB BLOOD ORDERABLES Glo l Result Performing Organization Address City/[facility]/ZIP Co de Phone Number LABORATORY [facility] [address] [place] [address] * (ABNORMAL) BASIC METABOLIC PANEL (02/01/2025 6:34 AM EDT) Pathologist [facility] BUN 20 6 - 20 mg/dL 02/01/2025 7:25 AM EDT LABORATORY [facility] CREATININE 0.9 0.5 - 1.0 mg/dL 02/01/2025 7:25 AM EDT LABORATORY [facility] EGFR 65 >=60 mL/min 02/01/2025 7:25 AM EDT LABORATORY C Comment:eGFR is calculated b ased on the CKD-EPI 2020 equation. SODIUM 142 135 - 146 mmol/L 02/01/2025 7:25 AM EDT LABORATORY [facility] POTASSIUM 3.8 3.5 - 5.1 mmol/L 02/01/2025 7:25 AM EDT LABORATORY C CHLORIDE 107 98 - 107 mmol/L 02/01/2025 7:25 AM EDT LABORATORY C CO2 24 22 - 32 mmol/L 02/01/2025 7:25 AM EDT LABORATORY C ANION GAP 11 7 - 15 mmol/L 02/01/2025 7:25 AM EDT LABORATORY C GLUCOSE 102 70 - 120 mg/dL 02/01/2025 7:25 AM EDT LABORATORY [facility] CALCIUM 8.2(L) 8.4 - 10.2 mg/dL 02/01/2025 7:25 AM EDT LABORATORY [facility] Blood Venous blood specimen / Unknown Venipuncture / Unknown 02/01/2025 6:34 AM EDT 02/01/2025 6:51 AM EDT Juliana PAYNE LAB BLOOD ORDERABLES Glo l Result LABORATORY [facility] [address] [place] [address] * (ABNORMAL) GLUCOSE METER, POINT OF CARE (01/31/2025 9:56 PM EDT) Pathologist [facility] Glucose - POCT 158(H) 70 - 120 mg/dL 01/31/2025 10:02 PM EDT [employer] Blood Whole blood specimen / Unknown 01/31/2025 9:56 PM EDT 01/31/2025 10:01 PM EDT us Amber Rebolledo MD LAB POINT OF CARE TE ST DOCKED DEVICE UNSOLICITED RESULTS Final Result Performing Organization Address City/[facility]/ZIP Co de Phone Number [facility] [address] [place] [address] * (ABNORMAL) GLUCOSE METER, POINT OF CARE (01/31/2025 5:24 PM EDT) Pathologist [facility] Glucose - POCT 133(H) 70 - 120 mg/dL 01/31/2025 5:26 PM EDT [facility] [employer] Blood Whole blood specimen / Unknown 01/31/2025 5:24 PM EDT 01/31/2025 5:26 PM EDT us Abmer Rebolledo MD LAB POINT OF CARE TE ST DOCKED DEVICE UNSOLICITED RESULTS Final Result Performing Organization Address [facility]/ZIP Co de Phone Number [facility] [address] [place] [address] * GLUCOSE METER, POINT OF CARE (01/31/2025 11:29 AM EDT) [facility] Glucose - POCT 90 70 - 120 mg/dL 01/31/2025 11:34 AM EDT [employer] Blood Whole blood specimen / Unknown 01/31/2025 11:29 AM EDT 01/31/2025 11:34 AM EDT us Amber Rebolledo MD LAB POINT OF CARE TE ST DOCKED DEVICE UNSOLICITED RESULTS Final Result Performing Organization Address City/[facility]/ZIP Co de Phone Number [facility] [address] [place] [address] * (ABNORMAL) CBC (01/31/2025 7:10 AM EDT) Pathologist [facility] WBC 7.16 4.00 - 10.80 K/uL 01/31/2025 7:35 AM EDT LABORATORY [facility] RBC 3.96 3.85 - 5.15 M/uL 01/31/2025 7:35 AM EDT LABORATORY [facility] HGB 11.0(L) 12.0 - 15.3 g/dL 01/31/2025 7:35 AM EDT LABORATORY [facility] HCT 35.9(L) 36.0 - 45.2 % 01/31/2025 7:35 AM EDT LABORATORY [facility] MCV 90.7 81.5 - 97.5 fL 01/31/2025 7:35 AM EDT LABORATORY [facility] MCH 27.8 27.0 - 34.0 pg 01/31/2025 7:35 AM EDT LABORATORY [facility] MCHC 30.6 32.0 - 36.0 g/dL 01/31/2025 7:35 AM EDT LABORATORY [facility] RDW 14.2 11.5 - 15.5 % 01/31/2025 7:35 AM EDT LABORATORY [facility] PLT 181 140 - 400 K/uL 01/31/2025 7:35 AM EDT LABORATORY [facility] MPV 9.6 6.6 - 11.1 fL 01/31/2025 7:35 AM EDT LABORATORY [facility] nRBCs 0 <=0 /100 WBCs 01/31/2025 7:35 AM EDT LABORATORY [facility] Blood Venous blood specimen / Unknown Venipuncture / Unknown 01/31/2025 7:10 AM EDT 01/31/2025 7:23 AM EDT Matteo Riggs DO LAB BLOOD ORDERABLES Final Result Performing Organization Address City/State/[facility] Co de Phone Number LABORATORY [facility] [address] [place] [address] * PHOSPHORUS (01/31/2025 7:10 AM EDT) Phosphorus 3.8 2.5 - 4.8 mg/dL 01/31/2025 7:51 AM EDT LABORATORY [facility] Blood Venous blood specimen / Unknown Venipuncture / Unknown 01/31/2025 7:10 AM EDT 01/31/2025 7:23 AM EDT Juliana Gwen Farrell ELECTRICAL TECH LAB BLOOD ORDERABLES Glo l Result LABORATORY [facility] [address] [place] [address] * MAGNESIUM (01/31/2025 7:10 AM EDT) [facility] Magnesium 2.0 1.5 - 2.6 mg/dL 01/31/2025 7:51 AM EDT LABORATORY [facility] Blood Venous blood specimen / Unknown Venipuncture / Unknown 01/31/2025 7:10 AM EDT 01/31/2025 7:23 AM EDT Juliana Farrell ELECTRICAL TECH LAB BLOOD ORDERABLES Glo l Result Performing Organization Address [facility] Co de Phone Number LABORATORY [facility] [address] [place] [address] * (ABNORMAL) BASIC METABOLIC PANEL (01/31/2025 7:10 AM EDT) [facility] BUN 17 6 - 20 mg/dL 01/31/2025 7:51 AM EDT LABORATORY [facility] CREATININE 0.8 0.5 - 1.0 mg/dL 01/31/2025 7:51 AM EDT LABORATORY [facility] EGFR 78 >=60 mL/min 01/31/2025 7:51 AM EDT LABORATORY C Comment:eGFR is calculated b ased on the CKD-EPI 2020 equation. SODIUM 141 135 - 146 mmol/L 01/31/2025 7:51 AM EDT LABORATORY [facility] POTASSIUM 3.7 3.5 - 5.1 mmol/L 01/31/2025 7:51 AM EDT LABORATORY [facility] CHLORIDE 107 98 - 107 mmol/L 01/31/2025 7:51 AM EDT LABORATORY [facility] CO2 24 22 - 32 mmol/L 01/31/2025 7:51 AM EDT LABORATORY [facility] ANION GAP 10 7 - 15 mmol/L 01/31/2025 7:51 AM EDT LABORATORY [facility] GLUCOSE 97 70 - 120 mg/dL 01/31/2025 7:51 AM EDT LABORATORY [facility] CALCIUM 8.1(L) 8.4 - 10.2 mg/dL 01/31/2025 7:51 AM EDT LABORATORY [facility] Blood Venous blood specimen / Unknown Venipuncture / Unknown 01/31/2025 7:10 AM EDT 01/31/2025 7:23 AM EDT Juliana Farrell ELMER LAB BLOOD ORDERABLES Glo l Result Performing Organization Address [facility] Co de Phone Number LABORATORY [facility] [address] [place] [address] * EXTRA URINE ALIQUOT (01/31/2025 1:35 AM EDT) Urine Urine specimen / Unknown Non-blood Collection / Unknown 01/31/2025 1:35 AM EDT 01/31/2025 1:43 AM EDT Gilma Lowe PA-C LAB URINE ORDERABLES Fi nal Result Performing Organization Address [facility] de Phone Number LABORATORY [facility] [address] [place] [address] * (ABNORMAL) URINALYSIS, REFLEX TO CULTURE (01/31/2025 1:35 AM EDT) Color, Urine Light Yellow Colorless, Light Yellow, Yellow, Dark Yellow 01/31/2025 1:50 AM EDT LABORATORY C Clarity, Urine Clear Clear 01/31/2025 1:50 AM EDT LABORATORY C Glucose, Urine Negative Negative mg/dL 01/31/2025 1:50 AM EDT LABORATORY C Bilirubin, Urine Negative Negative 01/31/2025 1:50 AM EDT LABORATORY C Ketone, Urine Negative Negative mg/dL 01/31/2025 1:50 AM EDT LABORATORY C Specific [place], Urine >1.050(H) 1.003 - 1.030 01/31/2025 1:50 AM EDT LABORATORY C Blood, Urine Negative Negative 01/31/2025 1:50 AM EDT LABORATORY C pH, Urine 7.5 5.0 - 7.5 Units 01/31/2025 1:50 AM EDT LABORATORY C Protein, Urine Trace(A) Negative mg/dL 01/31/2025 1:50 AM EDT LABORATORY [facility] Urobilinogen, Urine 2.0(A) Normal mg/dL 01/31/2025 1:50 AM EDT LABORATORY C Nitrite, Urine Negative Negative 01/31/2025 1:50 AM EDT LABORATORY C Esterase, Urine Negative Negative 01/31/2025 1:50 AM EDT LABORATORY C RBC, Urine 0-2 0 - 2 /HPF 01/31/2025 1:50 AM EDT LABORATORY [facility] WBC, Urine 0-2 0 - 2 /HPF 01/31/2025 1:50 AM EDT LABORATORY C Bacteria, Urine 0-25 0 - 25 /HPF 01/31/2025 1:50 AM EDT LABORATORY C Culture, Urine 01/31/2025 1:50 AM EDT LABORATORY C Comment:Culture not indicate d by urinalysis results Urine Urine specimen / Unknown Non-blood Collection / Unknown 01/31/2025 1:35 AM EDT 01/31/2025 1:43 AM EDT Gilma Lowe PA-C LAB URINE ORDERABLES Fi nal Result Performing Organization Address City/[facility] Co de Phone Number LABORATORY [address] [address] * URINALYSIS, REFLEX TO CULTURE (CUP ONLY) (01/31/2025 1:35 AM EDT) Pathologist [facility] Urinalysis, Reflex to Culture Specimen Specimen collected and received 01/31/2025 3:00 AM EDT LABORATORY [facility] Urine Urine specimen / Unknown Non-blood Collection / Unknown 01/31/2025 1:35 AM EDT 01/31/2025 1:43 AM EDT Gilma Ivon LAZAR-C LAB URINE ORDERABLES Fi nal Result LABORATORY [facility] [address] [place] [address] * TOXICOLOGY, URINE SCREEN W/ CONFIRMATION (01/31/2025 1:35 AM EDT) Pathologist [facility] Amphetamines Screen, U Negative Negative 01/31/2025 2:00 AM EDT LABORATORY [facility] Benzodiazepines Screen, U Negative Negative 01/31/2025 2:00 AM EDT LABORATORY [facility] Cannabinoids Screen, U Negative Negative 01/31/2025 2:00 AM EDT LABORATORY [facility] Cocaine Metabolite Screen, U Negative Negative 01/31/2025 2:00 AM EDT LABORATORY [facility] Fentanyl Screen, U Negative Negative 2024 2:00 AM EDT LABORATORY [facility] Hydrocodone Screen, U Negative Negative 01/31/2025 2:00 AM EDT LABORATORY [facility] Methadone Metabolite Screen, U Negative Negative 01/31/2025 2:00 AM EDT LABORATORY [facility] Morphine/Codeine Screen, U Negative Negative 01/31/2025 2:00 AM EDT LABORATORY [facility] Oxycodone Screen, U Negative Negative 01/31 2:00 AM EDT LABORATORY [facility] Urine Urine specimen / Unknown Non-blood Collection / Unknown 01/31/2025 1:35 AM EDT 01/31/2025 1:43 AM EDT Narrative LABORATORY [facility] - 01/31/2025 2:00 AM EDT Cutoff Concentrations: Drug Level Amphetamines 500 ng/mL Benzodiazepines 100 ng/mL Cannabinoids 50 ng/mL Cocaine Metabolite 150 ng/mL Fentanyl 1 ng/mL Hydrocodone / Hydromorphone 300 ng/mL Methadone Metabolite 100 ng/mL Morphine / Codeine 300 ng/mL Oxycodone / Oxymorphone 100 ng/mL Screening results are presumptive and can only be used for medical purposes. Positive screening results are reflexed to confirmatory testing. Gilma Lowe PA-C LAB URINE ORDERABLES Fi nal Result LABORATORY [facility] [address] [place] [address] * CULTURE, URINE, QUANTITATIVE (01/31/2025 1:35 AM EDT) Culture Growth No significant growth 02/01/2025 7:37 AM EDT LABORATORY [facility] Urine Urine specimen obtained by clean catch procedure / Unknown Non-blood Collection / Unknown 01/31/2025 1:35 AM EDT 01/31/2025 1:43 AM EDT us Lise Merchant MD LAB MICRO - GENERAL ORDERA BLES Final Result LABORATORY [facility] [address] [place] [address] * XR FEMUR MINIMUM 2 VIEWS (01/31/2025 12:30 AM EDT) Anatomical Region Laterality Modality Femur, Lower Extremity, Hip Digi nadia Radiography 01/31/2025 12:4 2 AM EDT Impressions 01/31/2025 12:40 AM EDT IMPRESSION 1. No acute fracture or dislocation. 2. Mild osteoarthritis of the right knee. Narrative 01/31/2025 12:40 AM EDT EXAM XR FEMUR MINIMUM 2 VIEWS; XR HIP UNILAT 2-3 VIEWS INCLUDING AP PELVIS - 01/31/2025 12:30 am HISTORY 79 y/o year old F with fall TECHNIQUE AP, cross-table lateral views of the right hip, AP and lateral views of the right femur. Single AP view of the pelvis. COMPARISON CT abdomen pelvis 01/30/2025 FINDINGS Bones: No acute fracture dislocation. Joints: Tricompartmental osteophytic lipping in the knee. The bilateral hip joint spaces are maintained bilaterally. Low lumbar spondylosis. Soft tissues: Generalized pelvic enthesopathy. Enthesopathy of the bilateral greater trochanters. Contrast opacifies the bladder. Vascular calcifications. Procedure Note Abraham Barajas MD - 01/31/2025 EXAM XR FEMUR MINIMUM 2 VIEWS; XR HIP UNILAT 2-3 VIEWS INCLUDING AP PELVIS -01/31/2025 12:30 am HISTORY 79 y/o year old F with fall TECHNIQUE AP, cross-table lateral views of the right hip, AP and lateral views ofthe right femur. Single AP view of the pelvis. COMPARISON CT abdomen pelvis 01/30/2025 FINDINGS Bones: No acute fracture dislocation. Joints: Tricompartmental osteophytic lipping in the knee. The bilateralhip joint spaces are maintained bilaterally. Low lumbar spondylosis. Soft tissues: Generalized pelvic enthesopathy. Enthesopathy of thebilateral greater trochanters. Contrast opacifies the bladder. Vascularcalcifications. IMPRESSION IMPRESSION 1. No acute fracture or dislocation. 2. Mild osteoarthritis of the right knee. us Deanne Vargas MD RADIOLOGY ([facility]) F inal Result * XR HIP UNILAT 2-3 VIEWS INCLUDING AP PELVIS (01/31/2025 12:30 AM EDT) Anatomical Region Laterality Modality Lower Extremity, Hip, Pelvis Dig ital Radiography 01/31/2025 12:4 2 AM EDT Impressions 01/31/2025 12:40 AM EDT IMPRESSION 1. No acute fracture or dislocation. 2. Mild osteoarthritis of the right knee. Narrative 01/31/2025 12:40 AM EDT EXAM XR FEMUR MINIMUM 2 VIEWS; XR HIP UNILAT 2-3 VIEWS INCLUDING AP PELVIS - 01/31/2025 12:30 am HISTORY 79 y/o year old F with fall TECHNIQUE AP, cross-table lateral views of the right hip, AP and lateral views of the right femur. Single AP view of the pelvis. COMPARISON CT abdomen pelvis 01/30/2025 FINDINGS Bones: No acute fracture dislocation. Joints: Tricompartmental osteophytic lipping in the knee. The bilateral hip joint spaces are maintained bilaterally. Low lumbar spondylosis. Soft tissues: Generalized pelvic enthesopathy. Enthesopathy of the bilateral greater trochanters. Contrast opacifies the bladder. Vascular calcifications. Procedure Note Abraham Barajas MD - 01/31/2025 EXAM XR FEMUR MINIMUM 2 VIEWS; XR HIP UNILAT 2-3 VIEWS INCLUDING AP PELVIS -01/31/2025 12:30 am HISTORY 79 y/o year old F with fall TECHNIQUE AP, cross-table lateral views of the right hip, AP and lateral views ofthe right femur. Single AP view of the pelvis. COMPARISON CT abdomen pelvis 01/30/2025 FINDINGS Bones: No acute fracture dislocation. Joints: Tricompartmental osteophytic lipping in the knee. The bilateralhip joint spaces are maintained bilaterally. Low lumbar spondylosis. Soft tissues: Generalized pelvic enthesopathy. Enthesopathy of thebilateral greater trochanters. Contrast opacifies the bladder. Vascularcalcifications. IMPRESSION IMPRESSION 1. No acute fracture or dislocation. 2. Mild osteoarthritis of the right knee. Deanne Vargas MD RADIOLOGY ([facility]) F inal Result * XR WRIST 3 OR MORE VIEWS (01/31/2025 12:30 AM EDT) Anatomical Region Laterality Modality Upper Extremity, Wrist Digital R adiography 01/31/2025 12:4 2 AM EDT Impressions 01/31/2025 12:39 AM EDT IMPRESSION Intra-articular distal right radius fracture in stable alignment status post splinting. Narrative 01/31/2025 12:39 AM EDT EXAM XR WRIST 3 OR MORE VIEWS-01/31/2025 12:30 am HISTORY post splint COMPARISON XR WRIST 3 OR MORE VIEWS, ACC: [id number], dated 2025-01-30 17:34:21; XR HAND 3 OR MORE VIEWS, ACC: [id number], dated 2025-01-30 17:34:21; XR FOREARM 2 VIEWS, ACC: [id number], dated 2025-01-30 17:34:21 TECHNIQUE Three views of the right wrist. FINDINGS Intra-articular distal right radius fracture in stable alignment status post splinting. Carpal alignment appears preserved. Procedure Note Saran Akins MD - 01/31/2025 EXAM XR WRIST 3 OR MORE VIEWS-01/31/2025 12:30 am HISTORY post splint COMPARISON XR WRIST 3 OR MORE VIEWS, ACC: [id number], dated 2025-01-30 17:34:21; XR HAND 3 OR MORE VIEWS, ACC: [id number], d 2025-01-30 17:34:21; XR FOREARM 2 VIEWS, ACC: [id number], dated 2025-01-30 17:34:21 TECHNIQUE Three views of the right wrist. FINDINGS Intra-articular distal right radius fracture in stable alignment statuspost splinting. Carpal alignment appears preserved. IMPRESSION IMPRESSION Intra-articular distal right radius fracture in stable alignment statuspost splinting. Deanne Vargas MD RADIOLOGY ([facility]) F inal Result * CT UPPER EXTREMITY RIGHT WO CONTRAST (01/31/2025 12:13 AM EDT) Anatomical Region Laterality Modality Upper Extremity, Elbow, Scap brain, Shoulder, Wrist, Hand, HUMERUS, Forearm, Musculoskeletal Computed Tomog nelson 01/31/2025 9:32 AM EDT Impressions 01/31/2025 9:29 AM EDT IMPRESSION Distal radius intra-articular fracture. Narrative 01/31/2025 9:[address] UPPER EXTREMITY RIGHT WO CONTRAST - 01/31/2025 12:13 am HISTORY drf COMPARISON Radiographs 01/30/2025. TECHNIQUE Contiguous helical axial imaging through the RT wrist was obtained without contrast. Coronal and sagittal reconstructed images are provided. FINDINGS BONES: Comminuted and slightly impacted distal radius intra-articular fracture with dominant fracture lines along the base of the radial styloid. No additional fractures are identified. 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 Borderline widening of the scapholunate interval. Ulnar minus variance. SOFT TISSUES: Soft tissue swelling about the wrist. Partially imaged intra-abdominal contents are grossly unremarkable. Procedure Note Riley Ha MD - 01/31/[address] UPPER EXTREMITY RIGHT WO CONTRAST - 01/31/2025 12:13 am HISTORY drf COMPARISON Radiographs 01/30/2025. TECHNIQUE Contiguous helical axial imaging through the RT wrist was obtained withoutcontrast. Coronal and sagittal reconstructed images are provided. FINDINGS BONES: Comminuted and slightly impacted distal radius intra-articular fracturewith dominant fracture lines along the base of the radial styloid. Noadditional fractures are identified. 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 Ulnar minus variance. SOFT TISSUES: Soft tissue swelling about the wrist. Partially imaged intra-abdominalcontents are grossly unremarkable. IMPRESSION IMPRESSION Distal radius intra-articular fracture. us Deanne Vargas MD RAD CT Final Res ult * CT HEAD/BRAIN WO CONTRAST (01/31/2025 12:13 AM EDT) Anatomical Region Laterality Modality Head Computed Tomogra phy 01/31/2025 12:2 2 AM EDT Impressions 01/31/2025 12:30 AM EDT IMPRESSION Unchanged small volume subarachnoid hemorrhage along the right frontal lobe and small anterior parafalcine subdural hematoma. No evidence of new or progressive hemorrhage. I have personally reviewed this examination and agree with the resident/fellow physician's interpretation. Narrative 01/31/2025 12:[address] HEAD WITHOUT CONTRAST -01/31/2025 12:00 [...] microvascular ischemia. Chronic encephalomalacia along the left temporoparietal lobe compatible with a remote left MCA [...] Bilateral mastoid air cells are clear. The lime ocular lenses have been surgically replaced. Procedure Note Abraham Barajas MD - 01/31/[address] HEAD WITHOUT CONTRAST -01/31/2025 12:00 am HISTORY Follow up slightly worsening SDH. COMPARISON CT head dated 01/30/2025 at 17:16 p.m. and 12:[address] scan of the head was performed without intravenous contrast. Axial,coronal, and sagittal reformats were obtained. FINDINGS Redemonstrated small volume subarachnoid hemorrhage along the rightfrontal lobe, unchanged. A small anterior parafalcine subdural hematomais again seen and appears unchanged. No evidence of new areas ofhemorrhage. No midline shift, downward tentorial herniation, orhydrocephalus. The basal cisterns are patent. Global brain volume loss with proportionate prominence of the ventriclesand sulci. Patchy and confluent foci of hypoattenuation in thesubcortical and periventricular white matter are nonspecific and mayrepresent sequela of chronic microvascular ischemia. Chronicencephalomalacia along the left temporoparietal lobe compatible with aremote left MCA territory infarct. Small lacunar infarct at the leftcaudate head. Redemonstrated chronic calcification of a left distal M 2branch. Mild intracranial atherosclerosis. Small right facial contusions/laceration. The underlying calvarium isintact. Small pilar versus epidermal inclusion cyst in the right parietalscalp. Mild mucosal thickening of the left maxillary sinus. Bilateralmastoid air cells are clear. The lime ocular lenses have been surgicallyreplaced. IMPRESSION IMPRESSION Unchanged small volume subarachnoid hemorrhage along the right frontallobe and small anterior parafalcine subdural hematoma. No evidence of newor progressive hemorrhage. I have personally reviewed this examination and agree with the resident/fellow physician's interpretation. us Leanna Gillespie PA-C RAD CT Final Result * (ABNORMAL) CBC (01/30/2025 11:17 PM EDT) WBC 8.14 4.00 - 10.80 K/uL 01/30/2025 11:31 PM EDT LABORATORY [facility] RBC 3.93 3.85 - 5.15 M/uL 01/30/2025 11:31 PM EDT LABORATORY [facility] HGB 11.0(L) 12.0 - 15.3 g/dL 01/30/2025 11:31 PM EDT LABORATORY [facility] HCT 35.3(L) 36.0 - 45.2 % 01/30/2025 11:31 PM EDT LABORATORY [facility] MCV 89.8 81.5 - 97.5 fL 01/30/2025 11:31 PM EDT LABORATORY [facility] MCH 28.0 27.0 - 34.0 pg 01/30/2025 11:31 PM EDT LABORATORY [facility] MCHC 31.2 32.0 - 36.0 g/dL 01/30/2025 11:31 PM EDT LABORATORY [facility] RDW 14.4 11.5 - 15.5 % 01/30/2025 11:31 PM EDT LABORATORY [facility] PLT 197 140 - 400 K/uL 01/30/2025 11:31 PM EDT LABORATORY [facility] MPV 9.4 6.6 - 11.1 fL 01/30/2025 11:31 PM EDT LABORATORY [facility] nRBCs 0 <=0 /100 WBCs 01/30/2025 11:31 PM EDT LABORATORY [facility] Blood Venous blood specimen / Unknown Venipuncture / Unknown 01/30/2025 11:17 PM EDT 01/30/2025 11:21 PM EDT Matteo Riggs DO LAB BLOOD ORDERABLES Final Result Performing Organization Address [facility] Co de Phone Number LABORATORY [facility] [address] [place] [address] * EKG (01/30/2025 8:32 PM EDT) 01/30/2025 8:32 PM EDT Narrative Procedure Note Milad Malhotra, - 01/30/2025 8:32 PM EDT REASON FOR STUDY: Screening for cardiovascular condition CONCLUSIONS: Sinus rhythm with Premature atrial complexes When compared with ECG of 30-Jan-2025 17:49, Premature atrial complexes are now Present Ventricular Rate: 65 Atrial Rate: 65 MN Interval: 184 QRS Duration: 84 QT/QTc: 450/468 ms P-R-T [place]: 0 : 5 : 16 degrees us Amber Rebolledo MD EKG Final Result Performing Organization Address City/[facility] Co de Phone Number [facility] CARDIOLOGY * XR ELBOW 3 OR MORE VIEWS (01/30/2025 5:52 PM EDT) Anatomical Region Laterality Modality Upper Extremity, Elbow Computed Radiography 01/30/2025 7:52 PM EDT Impressions 01/30/2025 7:49 PM EDT IMPRESSION 1. Acute right intra-articular distal radius fracture. 2. Scapholunate interval appears mildly widened. Mild negative ulnar variance. Narrative 01/30/2025 7:49 PM EDT EXAM RT UPREXT; KNEE; UPERXT XR FOREARM 2 VIEWS; XR KNEE 1-2 VIEWS; XR WRIST 3 OR MORE VIEWS; XR HAND 3 OR MORE VIEWS; XR ELBOW 3 OR MORE VIEWS - 01/30/2025 5:52 pm HISTORY pain after fall COMPARISON RADIOLOGY EXAM - CT (IMAGES ONLY, NO REPORT), ACC: [id number], dated 2025-01-30 12:21:32 TECHNIQUE Radiography of the RT UPREXT; KNEE; UPERXT was performed. FINDINGS Right wrist: Diffuse osseous demineralization limits assessment. Acute mildly impacted comminuted mildly displaced intra-articular distal radius fractures. No additional fracture or dislocation. Soft tissue swelling. Question trace triangular fibrocartilage mineralization. Mild negative ulnar variance. Right hand: No additional fracture or dislocation. Soft tissue swelling. Moderate triscaphe degenerative changes. Some spurring of the metacarpals which could be seen in chronic CPPD arthropathy or other etiologies. Right forearm: No additional fracture or dislocation. Soft tissue swelling. Right elbow: No additional fracture or dislocation. Soft tissue swelling. No effusion. Degenerative changes. Tiny chronic fragment adjacent to the medial epicondyle. Right knee: No acute fracture or dislocation. Lateral tibial spine irregularity favors chronic change. Soft tissue swelling and medial knee soft tissue contusion. No sizable effusion. Moderate tricompartmental degenerative changes, most pronounced in the patellar followed by the medial compartments. Procedure Note Mike Cuadra MD - 01/30/2025 EXAM RT UPREXT; KNEE; UPERXT XR FOREARM 2 VIEWS; XR KNEE 1-2 VIEWS; XR WRIST 3OR MORE VIEWS; XR HAND 3 OR MORE VIEWS; XR ELBOW 3 OR MORE VIEWS -01/30/2025 5:52 pm HISTORY pain after fall COMPARISON RADIOLOGY EXAM - CT (IMAGES ONLY, NO REPORT), ACC: [id number], [id number] 12:21:32 TECHNIQUE Radiography of the RT UPREXT; KNEE; UPERXT was performed. FINDINGS Right wrist: Diffuse osseous demineralization limits assessment. Acutemildly impacted comminuted mildly displaced intra-articular distal radiusfractures. No additional fracture or dislocation. Soft tissue swelling.Question trace triangular fibrocartilage mineralization. Mild negativeulnar variance. Right hand: No additional fracture or dislocation. Soft tissue swelling.Moderate triscaphe degenerative changes. Some spurring of the metacarpalswhich could be seen in chronic CPPD arthropathy or other etiologies. Right forearm: No additional fracture or dislocation. Soft tissueswelling. Right elbow: No additional fracture or dislocation. Soft tissue swelling.No effusion. Degenerative changes. Tiny chronic fragment adjacent tothe medial epicondyle. Right knee: No acute fracture or dislocation. Lateral tibial spineirregularity favors chronic change. Soft tissue swelling and medial kneesoft tissue contusion. No sizable effusion. Moderate tricompartmentaldegenerative changes, most pronounced in the patellar followed by themedial compartments. IMPRESSION IMPRESSION 1. Acute right intra-articular distal radius fracture. 2. Scapholunate interval appears mildly widened. Mild negative ulnarvariance. us Leanna Gillespie PA-C RADIOLOGY (RAD GENERA L) Final Result * XR KNEE 1-2 VIEWS (01/30/2025 5:52 PM EDT) Anatomical Region Laterality Modality Knee, Lower Extremity Computed R adiography 01/30/2025 7:52 PM EDT Impressions 01/30/2025 7:49 PM EDT IMPRESSION 1. Acute right intra-articular distal radius fracture. 2. Scapholunate interval appears mildly widened. Mild negative ulnar variance. Narrative 01/30/2025 7:49 PM EDT EXAM RT UPREXT; KNEE; UPERXT XR FOREARM 2 VIEWS; XR KNEE 1-2 VIEWS; XR WRIST 3 OR MORE VIEWS; XR HAND 3 OR MORE VIEWS; XR ELBOW 3 OR MORE VIEWS - 01/30/2025 5:52 pm HISTORY pain after fall COMPARISON RADIOLOGY EXAM - CT (IMAGES ONLY, NO REPORT), ACC: [id number], dated 2025-01-30 12:21:32 TECHNIQUE Radiography of the RT UPREXT; KNEE; UPERXT was performed. FINDINGS Right wrist: Diffuse osseous demineralization limits assessment. Acute mildly impacted comminuted mildly displaced intra-articular distal radius fractures. No additional fracture or dislocation. Soft tissue swelling. Question trace triangular fibrocartilage mineralization. Mild negative ulnar variance. Right hand: No additional fracture or dislocation. Soft tissue swelling. Moderate triscaphe degenerative changes. Some spurring of the metacarpals which could be seen in chronic CPPD arthropathy or other etiologies. Right forearm: No additional fracture or dislocation. Soft tissue swelling. Right elbow: No additional fracture or dislocation. Soft tissue swelling. No effusion. Degenerative changes. Tiny chronic fragment adjacent to the medial epicondyle. Right knee: No acute fracture or dislocation. Lateral tibial spine irregularity favors chronic change. Soft tissue swelling and medial knee soft tissue contusion. No sizable effusion. Moderate tricompartmental degenerative changes, most pronounced in the patellar followed by the medial compartments. Procedure Note Mike Cuadra MD - 01/30/2025 EXAM RT UPREXT; KNEE; UPERXT XR FOREARM 2 VIEWS; XR KNEE 1-2 VIEWS; XR WRIST 3OR MORE VIEWS; XR HAND 3 OR MORE VIEWS; XR ELBOW 3 OR MORE VIEWS -01/30/2025 5:52 pm HISTORY pain after fall COMPARISON RADIOLOGY EXAM - CT (IMAGES ONLY, NO REPORT), ACC: [id number], [id number] 12:21:32 TECHNIQUE Radiography of the RT UPREXT; KNEE; UPERXT was performed. FINDINGS Right wrist: Diffuse osseous demineralization limits assessment. Acutemildly impacted comminuted mildly displaced intra-articular distal radiusfractures. No additional fracture or dislocation. Soft tissue swelling.Question trace triangular fibrocartilage mineralization. Mild negativeulnar variance. Right hand: No additional fracture or dislocation. Soft tissue swelling.Moderate triscaphe degenerative changes. Some spurring of the metacarpalswhich could be seen in chronic CPPD arthropathy or other etiologies. Right forearm: No additional fracture or dislocation. Soft tissueswelling. Right elbow: No additional fracture or dislocation. Soft tissue swelling.No effusion. Degenerative changes. Tiny chronic fragment adjacent tothe medial epicondyle. Right knee: No acute fracture or dislocation. Lateral tibial spineirregularity favors chronic change. Soft tissue swelling and medial kneesoft tissue contusion. No sizable effusion. Moderate tricompartmentaldegenerative changes, most pronounced in the patellar followed by themedial compartments. IMPRESSION IMPRESSION 1. Acute right intra-articular distal radius fracture. 2. Scapholunate interval appears mildly widened. Mild negative ulnarvariance. Leanna Gillespie PA-C RADIOLOGY (RAD GENERA L) Final Result * XR HAND 3 OR MORE VIEWS (01/30/2025 5:52 PM EDT) Anatomical Region Laterality Modality Upper Extremity, Hand Computed R adiography 01/30/2025 7:52 PM EDT Impressions 01/30/2025 7:49 PM EDT IMPRESSION 1. Acute right intra-articular distal radius fracture. 2. Scapholunate interval appears mildly widened. Mild negative ulnar variance. Narrative 01/30/2025 7:49 PM EDT EXAM RT UPREXT; KNEE; UPERXT XR FOREARM 2 VIEWS; XR KNEE 1-2 VIEWS; XR WRIST 3 OR MORE VIEWS; XR HAND 3 OR MORE VIEWS; XR ELBOW 3 OR MORE VIEWS - 01/30/2025 5:52 pm HISTORY pain after fall COMPARISON RADIOLOGY EXAM - CT (IMAGES ONLY, NO REPORT), ACC: [id number], dated 2025-01-30 12:21:32 TECHNIQUE Radiography of the RT UPREXT; KNEE; UPERXT was performed. FINDINGS Right wrist: Diffuse osseous demineralization limits assessment. Acute mildly impacted comminuted mildly displaced intra-articular distal radius fractures. No additional fracture or dislocation. Soft tissue swelling. Question trace triangular fibrocartilage mineralization. Mild negative ulnar variance. Right hand: No additional fracture or dislocation. Soft tissue swelling. Moderate triscaphe degenerative changes. Some spurring of the metacarpals which could be seen in chronic CPPD arthropathy or other etiologies. Right forearm: No additional fracture or dislocation. Soft tissue swelling. Right elbow: No additional fracture or dislocation. Soft tissue swelling. No effusion. Degenerative changes. Tiny chronic fragment adjacent to the medial epicondyle. Right knee: No acute fracture or dislocation. Lateral tibial spine irregularity favors chronic change. Soft tissue swelling and medial knee soft tissue contusion. No sizable effusion. Moderate tricompartmental degenerative changes, most pronounced in the patellar followed by the medial compartments. Procedure Note Mike Cuadra MD - 01/30/2025 EXAM RT UPREXT; KNEE; UPERXT XR FOREARM 2 VIEWS; XR KNEE 1-2 VIEWS; XR WRIST 3OR MORE VIEWS; XR HAND 3 OR MORE VIEWS; XR ELBOW 3 OR MORE VIEWS -01/30/2025 5:52 pm HISTORY pain after fall COMPARISON RADIOLOGY EXAM - CT (IMAGES ONLY, NO REPORT), ACC: [id number], [id number] 12:21:32 TECHNIQUE Radiography of the RT UPREXT; KNEE; UPERXT was performed. FINDINGS Right wrist: Diffuse osseous demineralization limits assessment. Acutemildly impacted comminuted mildly displaced intra-articular distal radiusfractures. No additional fracture or dislocation. Soft tissue swelling.Question trace triangular fibrocartilage mineralization. Mild negativeulnar variance. Right hand: No additional fracture or dislocation. Soft tissue swelling.Moderate triscaphe degenerative changes. Some spurring of the metacarpalswhich could be seen in chronic CPPD arthropathy or other etiologies. Right forearm: No additional fracture or dislocation. Soft tissueswelling. Right elbow: No additional fracture or dislocation. Soft tissue swelling.No effusion. Degenerative changes. Tiny chronic fragment adjacent tothe medial epicondyle. Right knee: No acute fracture or dislocation. Lateral tibial spineirregularity favors chronic change. Soft tissue swelling and medial kneesoft tissue contusion. No sizable effusion. Moderate tricompartmentaldegenerative changes, most pronounced in the patellar followed by themedial compartments. IMPRESSION IMPRESSION 1. Acute right intra-articular distal radius fracture. 2. Scapholunate interval appears mildly widened. Mild negative ulnarvariance. us Leanna Gillespie PA-C RADIOLOGY (RAD GENERA L) Final Result * XR WRIST 3 OR MORE VIEWS (01/30/2025 5:52 PM EDT) Anatomical Region Laterality Modality Upper Extremity, Wrist Computed Radiography 01/30/2025 7:52 PM EDT Impressions 01/30/2025 7:49 PM EDT IMPRESSION 1. Acute right intra-articular distal radius fracture. 2. Scapholunate interval appears mildly widened. Mild negative ulnar variance. Narrative 01/30/2025 7:49 PM EDT EXAM RT UPREXT; KNEE; UPERXT XR FOREARM 2 VIEWS; XR KNEE 1-2 VIEWS; XR WRIST 3 OR MORE VIEWS; XR HAND 3 OR MORE VIEWS; XR ELBOW 3 OR MORE VIEWS - 01/30/2025 5:52 pm HISTORY pain after fall COMPARISON RADIOLOGY EXAM - CT (IMAGES ONLY, NO REPORT), ACC: [id number], dated 2025-01-30 12:21:32 TECHNIQUE Radiography of the RT UPREXT; KNEE; UPERXT was performed. FINDINGS Right wrist: Diffuse osseous demineralization limits assessment. Acute mildly impacted comminuted mildly displaced intra-articular distal radius fractures. No additional fracture or dislocation. Soft tissue swelling. Question trace triangular fibrocartilage mineralization. Mild negative ulnar variance. Right hand: No additional fracture or dislocation. Soft tissue swelling. Moderate triscaphe degenerative changes. Some spurring of the metacarpals which could be seen in chronic CPPD arthropathy or other etiologies. Right forearm: No additional fracture or dislocation. Soft tissue swelling. Right elbow: No additional fracture or dislocation. Soft tissue swelling. No effusion. Degenerative changes. Tiny chronic fragment adjacent to the medial epicondyle. Right knee: No acute fracture or dislocation. Lateral tibial spine irregularity favors chronic change. Soft tissue swelling and medial knee soft tissue contusion. No sizable effusion. Moderate tricompartmental degenerative changes, most pronounced in the patellar followed by the medial compartments. Procedure Note Mike Cuadra MD - 01/30/2025 EXAM RT UPREXT; KNEE; UPERXT XR FOREARM 2 VIEWS; XR KNEE 1-2 VIEWS; XR WRIST 3OR MORE VIEWS; XR HAND 3 OR MORE VIEWS; XR ELBOW 3 OR MORE VIEWS -01/30/2025 5:52 pm HISTORY pain after fall COMPARISON RADIOLOGY EXAM - CT (IMAGES ONLY, NO REPORT), ACC: [id number], [id number] 12:21:32 TECHNIQUE Radiography of the RT UPREXT; KNEE; UPERXT was performed. FINDINGS Right wrist: Diffuse osseous demineralization limits assessment. Acutemildly impacted comminuted mildly displaced intra-articular distal radiusfractures. No additional fracture or dislocation. Soft tissue swelling.Question trace triangular fibrocartilage mineralization. Mild negativeulnar variance. Right hand: No additional fracture or dislocation. Soft tissue swelling.Moderate triscaphe degenerative changes. Some spurring of the metacarpalswhich could be seen in chronic CPPD arthropathy or other etiologies. Right forearm: No additional fracture or dislocation. Soft tissueswelling. Right elbow: No additional fracture or dislocation. Soft tissue swelling.No effusion. Degenerative changes. Tiny chronic fragment adjacent tothe medial epicondyle. Right knee: No acute fracture or dislocation. Lateral tibial spineirregularity favors chronic change. Soft tissue swelling and medial kneesoft tissue contusion. No sizable effusion. Moderate tricompartmentaldegenerative changes, most pronounced in the patellar followed by themedial compartments. IMPRESSION IMPRESSION 1. Acute right intra-articular distal radius fracture. 2. Scapholunate interval appears mildly widened. Mild negative ulnarvariance. Leanna Gillespie PA-C RADIOLOGY (RAD GENERA L) Final Result * XR FOREARM 2 VIEWS (01/30/2025 5:52 PM EDT) Anatomical Region Laterality Modality Upper Extremity, Forearm Compute d Radiography 01/30/2025 7:52 PM EDT Impressions 01/30/2025 7:49 PM EDT IMPRESSION 1. Acute right intra-articular distal radius fracture. 2. Scapholunate interval appears mildly widened. Mild negative ulnar variance. Narrative 01/30/2025 7:49 PM EDT EXAM RT UPREXT; KNEE; UPERXT XR FOREARM 2 VIEWS; XR KNEE 1-2 VIEWS; XR WRIST 3 OR MORE VIEWS; XR HAND 3 OR MORE VIEWS; XR ELBOW 3 OR MORE VIEWS - 01/30/2025 5:52 pm HISTORY pain after fall COMPARISON RADIOLOGY EXAM - CT (IMAGES ONLY, NO REPORT), ACC: [id number], dated 2025-01-30 12:21:32 TECHNIQUE Radiography of the RT UPREXT; KNEE; UPERXT was performed. FINDINGS Right wrist: Diffuse osseous demineralization limits assessment. Acute mildly impacted comminuted mildly displaced intra-articular distal radius fractures. No additional fracture or dislocation. Soft tissue swelling. Question trace triangular fibrocartilage mineralization. Mild negative ulnar variance. Right hand: No additional fracture or dislocation. Soft tissue swelling. Moderate triscaphe degenerative changes. Some spurring of the metacarpals which could be seen in chronic CPPD arthropathy or other etiologies. Right forearm: No additional fracture or dislocation. Soft tissue swelling. Right elbow: No additional fracture or dislocation. Soft tissue swelling. No effusion. Degenerative changes. Tiny chronic fragment adjacent to the medial epicondyle. Right knee: No acute fracture or dislocation. Lateral tibial spine irregularity favors chronic change. Soft tissue swelling and medial knee soft tissue contusion. No sizable effusion. Moderate tricompartmental degenerative changes, most pronounced in the patellar followed by the medial compartments. Procedure Note Mike Cuadra MD - 01/30/2025 EXAM RT UPREXT; KNEE; UPERXT XR FOREARM 2 VIEWS; XR KNEE 1-2 VIEWS; XR WRIST 3OR MORE VIEWS; XR HAND 3 OR MORE VIEWS; XR ELBOW 3 OR MORE VIEWS -01/30/2025 5:52 pm HISTORY pain after fall COMPARISON RADIOLOGY EXAM - CT (IMAGES ONLY, NO REPORT), ACC: [id number], [id number] 12:21:32 TECHNIQUE Radiography of the RT UPREXT; KNEE; UPERXT was performed. FINDINGS Right wrist: Diffuse osseous demineralization limits assessment. Acutemildly impacted comminuted mildly displaced intra-articular distal radiusfractures. No additional fracture or dislocation. Soft tissue swelling.Question trace triangular fibrocartilage mineralization. Mild negativeulnar variance. Right hand: No additional fracture or dislocation. Soft tissue swelling.Moderate triscaphe degenerative changes. Some spurring of the metacarpalswhich could be seen in chronic CPPD arthropathy or other etiologies. Right forearm: No additional fracture or dislocation. Soft tissueswelling. Right elbow: No additional fracture or dislocation. Soft tissue swelling.No effusion. Degenerative changes. Tiny chronic fragment adjacent tothe medial epicondyle. Right knee: No acute fracture or dislocation. Lateral tibial spineirregularity favors chronic change. Soft tissue swelling and medial kneesoft tissue contusion. No sizable effusion. Moderate tricompartmentaldegenerative changes, most pronounced in the patellar followed by themedial compartments. IMPRESSION IMPRESSION 1. Acute right intra-articular distal radius fracture. 2. Scapholunate interval appears mildly widened. Mild negative ulnarvariance. us Leanna Gillespie PA-C RADIOLOGY (RAD GENERA L) Final Result * EKG (01/30/2025 5:49 PM EDT) 01/30/2025 5:49 PM EDT Narrative Procedure Note Shahbaz Grace MD - 01/30/2025 5:49 PM EDT REASON FOR STUDY: Screening for cardiovascular condition CONCLUSIONS: Sinus rhythm with sinus arrhythmia with 1st degree AV block Nonspecific ST abnormality When compared with ECG of 30-Apr-2018 10:05, Questionable change in The axis Nonspecific T wave abnormality now evident in Inferior leads Ventricular Rate: 69 Atrial Rate: 69 MN Interval: 210 QRS Duration: 88 QT/QTc: 446/477 ms P-R-T [place]: 14 : 6 : 24 degrees Amber Rebolledo MD EKG Final Result [facility] * RADIOLOGY EXAM - CT (IMAGES ONLY, NO REPORT) (01/30/2025 5:45 PM EDT) Narrative Scheduling, Silent - 01/30/2025 5:45 PM EDT This is an imaging study not interpreted or resulted by a [facility] or [facility] contracted radiologist. Lise Merchant MD RAD CT Final Resu lt * RADIOLOGY EXAM - CT (IMAGES ONLY, NO REPORT) (01/30/2025 5:45 PM EDT) Narrative Scheduling, Silent - 01/30/2025 5:45 PM EDT This is an imaging study not interpreted or resulted by a [facility] or [facility] contracted radiologist. Lise Merchant MD RAD CT Final Resu lt * RADIOLOGY EXAM - CT (IMAGES ONLY, NO REPORT) (01/30/2025 5:45 PM EDT) Narrative Scheduling, Silent - 01/30/2025 5:45 PM EDT This is an imaging study not interpreted or resulted by a [facility] radiologist. Lise Merchant MD RAD CT Final Resu lt * RADIOLOGY EXAM - CT (IMAGES ONLY, NO REPORT) (01/30/2025 5:45 PM EDT) Narrative Scheduling, Silent - 01/30/2025 5:45 PM EDT This is an imaging study not interpreted or resulted by a [facility] radiologist. Lise Merchant MD RAD CT Final Resu lt * RADIOLOGY EXAM - CT (IMAGES ONLY, NO REPORT) (01/30/2025 5:44 PM EDT) Narrative Scheduling, Silent - 01/30/2025 5:45 PM EDT This is an imaging study not interpreted or resulted by a [facility] radiologist. Lise Merchant MD RAD CT Final Resu lt * RADIOLOGY EXAM - CT (IMAGES ONLY, NO REPORT) (01/30/2025 5:44 PM EDT) Narrative Scheduling, Silent - 01/30/2025 5:44 PM EDT This is an imaging study not interpreted or resulted by a [facility] radiologist. Lise Merchant MD RAD CT Final Resu lt * CTA HEAD/CTA NECK (01/30/2025 5:22 PM EDT) Anatomical Region Laterality Modality Neck, Head, Cspine, Spine Comput ed Tomography 01/30/2025 6:13 PM EDT Impressions 01/30/2025 6:59 PM EDT IMPRESSION 1. Small acute parafalcine subdural hematoma has slightly increased in size, now measuring up to 3-4 mm in maximum thickness. 2. Similar scattered trace subarachnoid hemorrhage. 3. No new sites of intracranial hemorrhage or evidence of an acute territorial infarct. 4. No evidence of traumatic cerebrovascular injury. 5. Right periorbital facial contusion/laceration without associated calvarial fracture. 6. 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 7. Moderate stenosis of the right internal carotid artery supraclinoid segment and moderate or greater stenosis of the right posterior cerebral artery origin. Non flow-limiting atherosclerotic changes in the head/neck, as discussed. The above impression was communicated to Amanda Arechiga and LISE MERCHANT by the university president (Dr. Afua Suarez) via secure text message at 5:32 p.m. and 6:03 p.m., respectively on 01/30/2025. Understanding was expressed. I have personally reviewed this examination and agree with the resident/fellow physician's interpretation. Narrative 01/30/2025 6:59 PM EDT EXAM CTA HEAD/CTA NECK-01/30/2025 5:22 pm HISTORY Trauma. COMPARISON Outside CT head and CTA head/neck performed earlier the same day. MRI brain dated 10/27/[address] scan of the head was performed without contrast. Subsequently,CT angiogram of the head and neck was performed following dynamic intravenous bolus contrast administration. 3D/MIP reformatted images are provided. FINDINGS CT HEAD: Similar scattered trace subarachnoid hemorrhage, most pronounced at the right frontal convexity. Left anterior parafalcine subdural hematoma has slightly increased in size, with maximum thickness now 3-4 mm (previously 2-3 mm). No recent territorial infarct. Generalized volume loss is appreciated. Patchy hypodensities in the cerebral white matter are nonspecific, but most commonly associated chronic microvascular ischemic changes. There is encephalomalacia of along the left temporoparietal lobe consistent with a chronic left MCA infarct. Chronic lacunar infarct in the left caudate lobe. There is no evidence of hydrocephalus or downward tentorial herniation. Facial contusion/laceration at the right eyebrow region. No underlying calvarial fracture. Mild mucosal thickening in the paranasal sinuses. Mastoid air cells are well aerated. Small pilar versus epidermal inclusion cyst in the right parietal scalp. The lime ocular lenses have been surgically replaced. CTA: The aortic arch is conventional in branching pattern. Atherosclerotic plaque at the great vessel origins without evidence of flow limiting stenosis. RIGHT ANTERIOR CIRCULATION: The innominate and common carotid arteries are normal in caliber. There is predominantly calcified plaque at the carotid bifurcation without significant stenosis by NASCET criteria. The cervical segment of the internal carotid artery is normal in caliber. Vascular calcifications are present in the cavernous and supraclinoid segments of the internal carotid artery, causing moderate stenosis of the supraclinoid segment. The A1 segment, anterior communicating artery complex, and A2 segment are within normal limits. The M1 segment and MCA bifurcation are unremarkable. LEFT ANTERIOR CIRCULATION: The common carotid artery is normal in caliber. There is predominantly calcified plaque at the carotid bifurcation, causing mild stenosis of the internal carotid artery origin (less than 50% stenosis by NASCET criteria). The remaining cervical segment of the internal carotid artery is normal in caliber. Vascular calcifications are present in the cavernous and supraclinoid segments of the internal carotid artery without significant stenosis. The A1 segment, anterior communicating artery complex, and A2 segment are within normal limits. The M1 segment is unremarkable. There is chronic embolic calcification of the left M2 segment and diminutive caliber of distal M2 and M3 segments near the site of chronic infarct. POSTERIOR CIRCULATION: Atherosclerosis at the right vertebral artery origin likely causes [id number] stenosis. The vertebral arteries are patent and otherwise uniform in caliber throughout the neck. The intradural vertebral and basilar arteries are normal in caliber. Atherosclerosis of the left V4 segment without significant stenosis. Focal moderate or greater stenosis of the right P1 segment origin. The P1 and P2 segments are otherwise within normal limits. The bilateral posterior communicating arteries are hypoplastic. The dural venous sinuses are not well evaluated due to contrast bolus timing. OTHER: Multiple chronically absent teeth, dental synagogue, and dental caries with periodontal disease. Multilevel degenerative changes are present in the cervical spine. Probable diffuse idiopathic skeletal hyperostosis (DISH). Postsurgical changes of total thyroidectomy. Procedure Note DukesEron MD - 01/30/2025 EXAM CTA HEAD/CTA NECK-01/30/2025 5:22 pm HISTORY Trauma. COMPARISON Outside CT head and CTA head/neck performed earlier the same day. MRIbrain dated 10/27/[address] scan of the head was performed without contrast. Subsequently,CTangiogram of the head and neck was performed following dynamic intravenousbolus contrast administration. 3D/MIP reformatted images are provided. FINDINGS CT HEAD: Similar scattered trace subarachnoid hemorrhage, most pronounced at theright frontal convexity. Left anterior parafalcine subdural hematoma has slightly increased insize, with maximum thickness now 3-4 mm (previously 2-3 mm). No recent territorial infarct. Generalized volume loss is appreciated. Patchy hypodensities in thecerebral white matter are nonspecific, but most commonly associatedchronic microvascular ischemic changes. There is encephalomalacia ofalong the left temporoparietal lobe consistent with a chronic left MCAinfarct. Chronic lacunar infarct in the left caudate lobe. There is no evidence of hydrocephalus or downward tentorial herniation. Facial contusion/laceration at the right eyebrow region. No underlyingcalvarial fracture. Mild mucosal thickening in the paranasal sinuses.Mastoid air cells are well aerated. Small pilar versus epidermalinclusion cyst in the right parietal scalp. The lime ocular lenses havebeen surgically replaced. CTA: The aortic arch is conventional in branching pattern. Atheroscleroticplaque at the great vessel origins without evidence of flow limitingstenosis. RIGHT ANTERIOR CIRCULATION: The innominate and common carotid arteries are normal in caliber. Thereis predominantly calcified plaque at the carotid bifurcation withoutsignificant stenosis by NASCET criteria. The cervical segment of theinternal carotid artery is normal in caliber. Vascular calcifications are present in the cavernous and supraclinoidsegments of the internal carotid artery, causing moderate stenosis of thesupraclinoid segment. The A1 segment, anterior communicating arterycomplex, and A2 segment are within normal limits. The M1 segment and MCAbifurcation are unremarkable. LEFT ANTERIOR CIRCULATION: The common carotid artery is normal in caliber. There is predominantlycalcified plaque at the carotid bifurcation, causing mild stenosis of theinternal carotid artery origin (less than 50% stenosis by NASCETcriteria). The remaining cervical segment of the internal carotid arteryis normal in caliber. Vascular calcifications are present in the cavernous and supraclinoidsegments of the internal carotid artery without significant stenosis. TheA1 segment, anterior communicating artery complex, and A2 segment arewithin normal limits. The M1 segment is unremarkable. There is chronicembolic calcification of the left M2 segment and diminutive caliber ofdistal M2 and M3 segments near the site of chronic infarct. POSTERIOR CIRCULATION: Atherosclerosis at the right vertebral artery origin likely [id number] stenosis. The vertebral arteries are patent andotherwise uniform in caliber throughout the neck. The intradural vertebral and basilar arteries are normal in caliber.Atherosclerosis of the left V4 segment without significant stenosis.Focal moderate or greater stenosis of the right P1 segment origin. The P1and P2 segments are otherwise within normal limits. The bilateralposterior communicating arteries are hypoplastic. The dural venous sinuses are not well evaluated due to contrast bolustiming. OTHER: Multiple chronically absent teeth, dental synagogue, and dental carieswith periodontal disease. Multilevel degenerative changes are present in the cervical spine.Probable diffuse idiopathic skeletal hyperostosis (DISH). Postsurgical changes of total thyroidectomy. IMPRESSION IMPRESSION 1. Small acute parafalcine subdural hematoma has slightly increased insize, now measuring up to 3-4 mm in maximum thickness. 2. Similar scattered trace subarachnoid hemorrhage. 3. No new sites of intracranial hemorrhage or evidence of an acuteterritorial infarct. 4. No evidence of traumatic cerebrovascular injury. 5. Right periorbital facial contusion/laceration without associatedcalvarial fracture. 6. 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 7. Moderate stenosis of the right internal carotid artery supraclinoidsegment and moderate or greater stenosis of the right posterior cerebralartery origin. Non flow-limiting atherosclerotic changes in thehead/neck, as discussed. The above impression was communicated to Amanda Arechiga and Shayna MERCHANT the university president (Dr. Afua Suarez) via secure text message at5:32 p.m. and 6:03 p.m., respectively on 01/30/2025. Understanding wasexpressed. I have personally reviewed this examination and agree with the resident/fellow physician's interpretation. us Lise Merchant MD RAD CT Final Resu lt * XR CHEST 1 VIEW (01/30/2025 5:15 PM EDT) Anatomical Region Laterality Modality Chest Computed Radiogr aphy 01/30/2025 5:57 PM EDT Impressions 01/30/2025 6:52 PM EDT IMPRESSION No acute traumatic findings. I have personally reviewed this examination and agree with the resident/fellow physician's interpretation. Narrative 01/30/2025 6:52 PM EDT EXAM XR CHEST 1 VIEW-01/30/2025 5:15 pm HISTORY Trauma. COMPARISON RADIOLOGY EXAM - CT (IMAGES ONLY, NO REPORT), ACC: [id number], dated 2025-01-30 12:21:32; RADIOLOGY EXAM - CT (IMAGES ONLY, NO REPORT), ACC: [id number], dated 2025-01-30 12:21:32 TECHNIQUE Supine view of the chest. FINDINGS Lines/Tubes/Devices: None. Lungs/Pleura: Hypoventilatory changes. No focal consolidation, pleural effusions, or pneumothorax. Heart/Mediastinum: Size and contours are unchanged. Bones/Soft Tissues: No acutely displaced fracture. Degenerative osseous changes. Upper Abdomen: Visualized portions are unremarkable. Procedure Note Riley Ha MD - 01/30/2025 EXAM XR CHEST 1 VIEW-01/30/2025 5:15 pm HISTORY Trauma. COMPARISON RADIOLOGY EXAM - CT (IMAGES ONLY, NO REPORT), ACC: [id number], [id number] 12:21:32; RADIOLOGY EXAM - CT (IMAGES ONLY, NO REPORT), ACC: [id number], [id number] 12:21:32 TECHNIQUE Supine view of the chest. FINDINGS Lines/Tubes/Devices: None. Lungs/Pleura: Hypoventilatory changes. No focal consolidation, pleuraleffusions, or pneumothorax. Heart/Mediastinum: Size and contours are unchanged. Bones/Soft Tissues: No acutely displaced fracture. Degenerative osseouschanges. Upper Abdomen: Visualized portions are unremarkable. IMPRESSION IMPRESSION No acute traumatic findings. I have personally reviewed this examination and agree with the resident/fellow physician's interpretation. Tanvir Appiah MD RADIOLOGY (RAD GENERA L) Final Result * ABO/RH (01/30/2025 5:09 PM EDT) ABO O 01/30/2025 6:11 PM EDT [facility] [place] [facility] Rh Positive 01/30/2025 6:11 PM EDT [facility] Blood Venous blood specimen / Unknown Venipuncture / Unknown 01/30/2025 5:09 PM EDT 01/30/2025 5:15 PM EDT Lise Merchant MD LAB BLOOD BANK TEST ORDERA BLES Final Result [facility] [address] [place] [address] * (ABNORMAL) DIFFERENTIAL, AUTOMATED (01/30/2025 5:09 PM EDT) WBC 12.73(H) 4.00 - 10.80 K/uL 01/30/2025 5:35 PM EDT [facility] Neutrophils % 78.2(H) 40.0 - 75.0 % 01/30/2025 5:35 PM EDT [facility] Lymphocytes % 13.2(L) 18.0 - 42.0 % 01/30/2025 5:35 PM EDT [facility] Monocytes % 6.9 1.0 - 11.0 % 01/30/2025 5:35 PM EDT [facility] Eosinophils % 0.8 0.0 - 6.0 % 01/30/2025 5:35 PM EDT [facility] Basophils % 0.5 0.0 - 2.0 % 01/30/2025 5:35 PM EDT [facility] Immature Granulocytes % 0.4 0.0 - 2.0 % 01/30/2025 5:35 PM EDT [facility] Absolute Neutrophils 9.96(H) 1.80 - 7.70 K/uL 01/30/2025 5:35 PM EDT [facility] Absolute Lymphocytes 1.68 1.00 - 4.80 K/ul 01/30/2025 5:35 PM EDT [facility] Absolute Monocytes 0.88 0.00 - 1.10 K/uL 01/30/2025 5:35 PM EDT [facility] Absolute Eosinophils 0.10 0.00 - 0.70 K/uL 01/30/2025 5:35 PM EDT [facility] Absolute Basophils 0.06 0.00 - 0.20 K/uL 01/30/2025 5:35 PM EDT [facility] Absolute Immature Granulocytes 0.05 0.00 - 0.20 K/uL 01/30/2025 5:35 PM EDT [facility] Blood Venous blood specimen / Unknown Venipuncture / Unknown 01/30/2025 5:09 PM EDT 01/30/2025 5:15 PM EDT us Lise Merchant MD LAB BLOOD ORDERABLES Final Result [facility] [address] [place] [address] * (ABNORMAL) CBC (01/30/2025 5:09 PM EDT) WBC 12.73(H) 4.00 - 10.80 K/uL 01/30/2025 5:35 PM EDT [facility] RBC 4.45 3.85 - 5.15 M/uL 01/30/2025 5:35 PM EDT [facility] HGB 12.5 12.0 - 15.3 g/dL 01/30/2025 5:35 PM EDT [facility] HCT 40.4 36.0 - 45.2 % 01/30/2025 5:35 PM EDT [facility] MCV 90.8 81.5 - 97.5 fL 01/30/2025 5:35 PM EDT [facility] MCH 28.1 27.0 - 34.0 pg 01/30/2025 5:35 PM EDT LABORATORY GM MCHC 30.9 32.0 - 36.0 g/dL 01/30/2025 5:35 PM EDT LABORATORY GM RDW 14.3 11.5 - 15.5 % 01/30/2025 5:35 PM EDT [facility] PLT 262 140 - 400 K/uL 01/30/2025 5:35 PM EDT [facility] MPV 9.8 6.6 - 11.1 fL 01/30/2025 5:35 PM EDT [facility] nRBCs 0 <=0 /100 WBCs 01/30/2025 5:35 PM EDT [facility] Blood Venous blood specimen / Unknown Venipuncture / Unknown 01/30/2025 5:09 PM EDT 01/30/2025 5:15 PM EDT us Lise Merchant MD LAB BLOOD ORDERABLES Final Result [facility] [address] [place] [address] * TYPE AND SCREEN (01/30/2025 5:09 PM EDT) ABO O 01/30/2025 5:55 PM EDT [facility] Rh Positive 01/30/2025 5:55 PM EDT [facility] Red Blood Cell Antibody Screen Negative 01/30/2025 5:55 PM EDT [facility] Specimen Expiration Date 02/02/2025 23:59 01/30/2025 5:55 PM EDT [facility] Blood Venous blood specimen / Unknown Venipuncture / Unknown 01/30/2025 5:09 PM EDT 01/30/2025 5:15 PM EDT Lise Merchant MD LAB BLOOD BANK TEST ORDERA BLES Final Result [facility] [address] [place] [address] * LACTATE (01/30/2025 5:09 PM EDT) Lactate 1.3 0.4 - 2.0 mmol/L 01/30/2025 5:36 PM EDT [facility] Blood Venous blood specimen / Unknown Venipuncture / Unknown 01/30/2025 5:09 PM EDT 01/30/2025 5:15 PM EDT Lise Merchant MD LAB BLOOD ORDERABLES Final Result Performing Organization Address City/[facility] Co de Phone Number LABORATORY [address] [address] * ETHANOL, MEDICAL (01/30/2025 5:09 PM EDT) Ethanol Negative Negative 01/30/2025 5:36 PM EDT [facility] Blood Venous blood specimen / Unknown Venipuncture / Unknown 01/30/2025 5:09 PM EDT 01/30/2025 5:15 PM EDT Lise Merchant MD LAB BLOOD ORDERABLES Final Result Performing Organization Address City/[facility] Co de Phone Number LAB[facility]ORY [facility] [address] [place] [address] * BASIC METABOLIC PANEL (01/30/2025 5:09 PM EDT) BUN 19 6 - 20 mg/dL 01/30/2025 5:36 PM EDT [facility] CREATININE 0.9 0.5 - 1.0 mg/dL 01/30/2025 5:36 PM EDT [facility] EGFR 68 >=60 mL/min 01/30/2025 5:36 PM EDT [facility] Comment:eGFR is calculated b ased on the CKD-EPI 2020 equation. SODIUM 141 135 - 146 mmol/L 01/30/2025 5:36 PM EDT [facility] POTASSIUM 4.7 3.5 - 5.1 mmol/L 01/30/2025 5:36 PM EDT [facility] CHLORIDE 105 98 - 107 mmol/L 01/30/2025 5:36 PM EDT [facility] CO2 23 22 - 32 mmol/L 01/30/2025 5:36 PM EDT [facility] ANION GAP 13 7 - 15 mmol/L 01/30/2025 5:36 PM EDT [facility] GLUCOSE 96 70 - 120 mg/dL 01/30/2025 5:36 PM EDT LABORATORY C CALCIUM 8.6 8.4 - 10.2 mg/dL 01/30/2025 5:36 PM EDT LABORATORY C Blood Venous blood specimen / Unknown Venipuncture / Unknown 01/30/2025 5:09 PM EDT 01/30/2025 5:15 PM EDT Lise Merchant MD LAB BLOOD ORDERABLES Final Result [facility] [address] [place] [address] * AST (01/30/2025 5:09 PM EDT) AST 28 10 - 35 U/L 01/30/2025 5:36 PM EDT [facility] Comment:Results may be false ly elevated due to hemolysis. Blood Venous blood specimen / Unknown Venipuncture / Unknown 01/30/2025 5:09 PM EDT 01/30/2025 5:15 PM EDT Lise Merchant MD LAB BLOOD ORDERABLES Final Result [facility] [address] [place] [address] * APTT (01/30/2025 5:09 PM EDT) aPTT 24 21 - 38 seconds 01/30/2025 5:42 PM EDT [facility] Blood Venous blood specimen / Unknown Venipuncture / Unknown 01/30/2025 5:09 PM EDT 01/30/2025 5:15 PM EDT Narrative LAB[facility]ATORY [facility] - 01/30/2025 5:42 PM EDT Anticoagulation may affect testing. Refer to N(i)² Test Catalog for a list of effects. Lise Merchant MD LAB BLOOD ORDERABLES Final Result Performing Organization Address [facility] de Phone Number LAB[facility]ATORY [facility] [address] [place] [address] * PT INR (01/30/2025 5:09 PM EDT) Prothrombin Time 13.1 11.6 - 15.2 seconds 01/30/2025 5:41 PM EDT [facility] INR 1.0 0.8 - 1.2 01/30/2025 5:41 PM EDT [facility] Blood Venous blood specimen / Unknown Venipuncture / Unknown 01/30/2025 5:09 PM EDT 01/30/2025 5:15 PM EDT Narrative LAB[facility]ORY [facility] - 01/30/2025 5:41 PM EDT Warfarin Therapy INR: 2.0-3.0 conventional anticoagulation INR: 2.5-3.5 high intensity anticoagulation Lise Merchant MD LAB BLOOD ORDERABLES Final Result Performing Organization Address [facility] Co de Phone Number LAB[facility]ATORY [facility] [address] [place] [address] documented in this encounter Visit Diagnoses Diagnosis Multiple injuries due to trauma- Primary Injury, other and unspecified, other specified sites, including multiple SAH (subarachnoid hemorrhage) (HCC) Subarachnoid hemorrhage Screening for cardiovascular condition Screening for other and unspecified cardiovascular conditions SDH (subdural hematoma) (HCC) Subdural hemorrhage Bruising Contusion of unspecified site Closed fracture of distal end of right radius, unspecified fracture morphology, initial encounter Encephalopathy acute Encephalopathy, unspecified Other specified disorders of brain Other abnormal findings on diagnostic imaging of central nervous system Abnormal findings on diagnostic imaging of other specified body structures Nontraumatic subdural hemorrhage, unspecified (HCC) 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) Occlusion and stenosis of right carotid artery Occlusion and stenosis of carotid artery without mention of cerebral infarction Exposure to other specified factors, initial encounter Nontraumatic intracerebral hemorrhage, unspecified (HCC) Unspecified fracture of the lower end of right radius, subsequent encounter for closed fracture with routine healing Presence of right artificial wrist joint Wrist joint replacement by other means Unilateral primary osteoarthritis, right knee Unspecified fall, initial encounter Other fracture of upper end of right radius, initial encounter for closed fracture Dyslipidemia, goal LDL below 100 Other and unspecified hyperlipidemia Essential (primary) hypertension Unspecified essential hypertension Generalized anxiety disorder Hypothyroidism Unspecified hypothyroidism Macular degeneration Macular degeneration (senile) of retina, unspecified Major depressive disorder, recurrent severe without psychotic features (HCC) Major depressive disorder, recurrent episode, severe, without mention of psychotic behavior Restless leg syndrome Restless legs syndrome (RLS) Type 2 diabetes mellitus with hemoglobin A1c goal of less than 7.0% (HCC) Laceration of brow without complication Open wound of forehead, without mention of complication SAH (subarachnoid hemorrhage) (HCC) Subarachnoid hemorrhage SDH (subdural hematoma) (HCC) Subdural hemorrhage Hematoma of right thigh Closed fracture of distal end of right radius Contusion of right knee Contusion of knee History of CVA (cerebrovascular accident) Transient ischemic attack (TIA), and cerebral infarction without residual deficits Mild vascular neurocognitive disorder Obesity Obesity, unspecified Impaired mobility and ADLs Mechanical problems with limbs Gait abnormality Abnormality of gait documented in this encounter Administered Medications Inactive Administered Medications - up to 3 most recent administrations Medication Order MAR Action Action Date Dose Rate Site Acetaminophen (Tylenol) tab 975 mg 975 mg, Oral, Q8H, First dose on Thu01/30/25 at 2200, Until Discontinued, Maximum 4 g acetaminophen/day. Avoid in patients with severe hepatic impairment or severe active liver disease. Use for 5 days. Given 02/03/2025 5:36 AM EDT 975 mg Given 02/02/2025 9:22 PM EDT 975 mg Given 02/02/2025 2:18 PM EDT 975 mg atorvaSTATin (Lipitor) tab 40 mg 40 mg, Oral, Daily(AM), First dose on Thu01/31/25 at 1100, Until Discontinued Given 02/03/2025 8:08 AM EDT 40 mg Given 02/02/2025 7:34 AM EDT 40 mg Given 02/01/2025 9:33 AM EDT 40 mg buPROPion extended release (SR) (Wellbutrin SR) tab 150 mg 150 mg, Oral, BID (.AM/PM), First dose on Thu01/31/25 at 1100, Until Discontinued, [Therapeutic Interchange from Wellbutrin XL] Given 02/03/2025 8:08 AM EDT 150 mg Given 02/02/2025 9:22 PM EDT 150 mg Given 02/02/2025 7:34 AM EDT 150 mg chlorhexidine gluconate cloth 2 % pad External, [id number], First dose on Thu01/31/25 at 1000, Until Discontinued, Applied to appropriate patients per hogshead opener's recommendations following daily care. May use more than one Pad (cloth/wipe) as needed to complete care. Given 02/02/2025 7:34 AM EDT 1 Pad Given 02/01/2025 9:28 AM EDT 1 Pad Given 01/31/2025 7:42 AM EDT 1 Pad dextrose 50% inj 25 mL 25 mL, IV Push, PRN Hypoglycemia, Other, For blood glucose 54 - 69 mg/dL or 70 - 100 mg/dL with symptoms AND patient is unresponsive, NPO, OR unable to swallow, Starting on Thu01/31/25 at 1021, Until Thu02/03/25 at 1526, Administer IV. Recheck blood glucose after 15 minutes. Notify provider. dextrose 50% inj 50 mL 50 mL, IV Push, PRN Hypoglycemia, Other, For blood glucose below 54 mg/dL AND patient unresponsive, NPO, OR unable to swallow, Starting on Thu01/31/25 at 1021, Until Thu02/03/25 at 1526, Administer IV. Recheck blood glucose in 15 minutes. Notify provider. Docusate Sodium (Colace) cap 100 mg 100 mg, Oral, BID (.AM/PM), First dose on Thu01/30/25 at 2100, Until Discontinued, For oral administration ONLY, if route of administration is other than oral and alternative product must be ordered. Given 02/03/2025 8:08 AM EDT 100 mg Given 02/02/2025 9:22 PM EDT 100 mg Given 02/02/2025 7:34 AM EDT 100 mg FLUoxetine (PROzac) cap 40 mg 40 mg, Oral, Daily(AM), First dose on Thu01/31/25 at 1100, Until Discontinued Given 02/03/2025 8:08 AM EDT 40 mg Given 02/02/2025 7:34 AM EDT 40 mg Given 02/01/2025 9:33 AM EDT 40 mg Gabapentin (Neurontin) cap 300 mg 300 mg, Oral, HS, First dose on Thu01/31/25 at 2200, Until Discontinued Given 02/02/2025 9:22 PM EDT 300 mg Given 02/01/2025 9:18 PM EDT 300 mg Given 01/31/2025 10:04 PM EDT 300 mg glucagon (Glucagen) inj 1 mg 1 mg, Intramuscular, PRN Hypoglycemia, Other, If patient is unresponsive, or NPO and has no IV access, Starting on Thu01/31/25 at 1021, Until Thu02/03/25 at 1526, NPO and no IV access with either 1) blood glucose less than 100 mg/dL and symptomatic OR 2) blood glucose less than 70 mg/dL and asymptomatic Glucose (Glutose 15) 40 % gel 15 g of glucose 15 g of glucose, Oral, PRN Hypoglycemia (low sugar), Other, For blood glucose 54 - 69 mg/dL or 70 - 100 mg/dL with symptoms AND patient alert WITH difficulty chewing/swallowing, Starting on Thu01/31/25 at 1021, Until Thu02/03/25 at 1526, Administer gel. Recheck blood glucose after 15 minutes. Notify provider. 37.5 gram tube = 15 grams glucose = 1 each Glucose (Glutose 15) 40 % gel 30 g of glucose 30 g of glucose, Oral, PRN Hypoglycemia (low sugar), Other, For blood glucose below 54 mg/dL AND patient alert WITH difficulty chewing/swallowing, Starting on Thu01/31/25 at 1021, Until Thu02/03/25 at 1526, Administer gel. Recheck blood glucose after 15 minutes. Notify provider. 37.5 gram tube = 15 grams glucose = 1 each glucose chew tab 16 g 16 g, Oral, PRN Hypoglycemia, Other, For blood glucose 54 - 69 mg/dL or 70 - 100 mg/dL with symptoms and patient alert without difficulty chewing/swallowing., Starting on Thu01/31/25 at 1021, Until Thu02/03/25 at 1526 hEParin inj 5,000 Units 5,000 Units, Subcutaneous, Q8H, First dose on Thu01/31/25 at 1400, Until Discontinued Given 02/03/2025 5:36 AM EDT 5,000 Units Abdomen Left Lower Given 02/02/2025 9:22 PM EDT 5,000 Units A bdomen Right Lower Given 02/02/2025 2:18 PM EDT 5,000 Units A bdomen Right Lower insulin aspart (NovoLOG) inj Subcutaneous, W/MEALS AND HS, First dose on Thu01/31/25 at 1200, Until Discontinued, LOW DOSE (Elderly insulin sensitive patient): Sliding Scale Correctional insulin may be given if the patient is NPO. Dose based on standard build from Insulin Calculator. Do not modify insulin doses in administration instructions!, Glucose less than 70 instructions: Obtain STAT lab blood glucose and call covering provider., Glucose 80-150 (units): 0, Glucose 151-200 (units): 1, Glucose 201-250 (units): 2, Glucose 251-300 (units): 3, Glucose greater than 300 (units): 4, Glucose greater than 300 instructions: Give suggested insulin dose and call covering provider. Given 02/02/2025 12:38 PM EDT 1 Units Arm Right Upper Given 01/31/2025 10:04 PM EDT 1 Units D eltoid Right Upper Iopamidol (Isovue 370) inj 80 mL 80 mL, Intravenous, ONCE, On Thu01/30/25 at 1800, For 1 dose, Radiology Medication Routing (Non-IR) Given 01/30/2025 6:00 PM EDT 65 mL isolyte 500 mL bolus infusion Intravenous, Administer entire volume within 60 minutes or less. Plasma-LYTE 148, isolyte-S, and isolyte-S pH 7.4 are considered equivalent - including for MAR barcode scanning., ONCE, 1 dose, On Thu02/03/25 at 0145 New Bag 02/03/2025 1:53 AM EDT 500 mL 500 mL/hr levETIRAcetam (Keppra) 500 mg in 100 mL ivpb *LOCKED DOSE* 500 mg, IV Piggyback, BID (.AM/PM), 13 doses, First dose on Thu01/31/25 at 0900, Last dose on Thu02/06/25 at 0900, at 600 mL/hr Administer over 10 Minutes New Bag 01/31/2025 7:42 AM EDT 500 mg 600 mL/hr levETIRAcetam (Keppra) 500 mg in NSS 100 mL ivpb IV Piggyback, CONTINUOUS PRN NARRATOR, Starting on Thu01/30/25 at 1726, Until Thu01/30/25 at 1726, Administer over 10 Minutes New Bag 01/30/2025 5:26 PM EDT 500 mg levETIRAcetam (Keppra) tab 500 mg 500 mg, Oral, BID (.AM/PM), First dose on Thu01/31/25 at 2100, Last dose on Thu02/06/25 at 0900, For 12 doses Given 02/03/2025 8:08 AM EDT 500 mg Given 02/02/2025 9:22 PM EDT 500 mg Given 02/02/2025 7:34 AM EDT 500 mg Levothyroxine Sodium (Levoxyl) tab 125 mcg 125 mcg, Oral, [id number], First dose on Thu02/01/25 at 0630, Until Discontinued Given 02/03/2025 5:36 AM EDT 125 mcg Given 02/02/2025 5:31 AM EDT 125 mcg Given 02/01/2025 7:05 AM EDT 125 mcg LORAzepam (Ativan) tab 0.5 mg 0.5 mg, Oral, Q8H PRN Anxiety, Starting on Thu01/31/25 at 1018, Until Thu02/03/25 at 1526 Given 02/03/2025 10:29 AM EDT 0.5 mg Given 02/02/2025 11:22 PM EDT 0.5 mg Given 02/02/2025 3:03 PM EDT 0.5 mg Mirtazapine (Remeron) tab 15 mg 15 mg, Oral, HS, First dose on Thu01/31/25 at 2200, Until Discontinued Given 02/02/2025 9:22 PM EDT 15 mg Given 02/01/2025 9:17 PM EDT 15 mg Given 01/31/2025 10:05 PM EDT 15 mg NSS infusion Intravenous, at 75 mL/hr, CONTINUOUS, Starting on Thu01/30/25 at 1800, Until Thu01/31/25 at 1021 Restarted 01/31/2025 10:14 AM EDT 75 mL/hr Rate Verify 01/31/2025 10:00 AM EDT 75 mL/hr Rate Verify 01/31/2025 9:00 AM EDT 75 mL/hr ondansetron (Zofran) inj 4 mg 4 mg, IV Push, Q6H PRN Other, May use for nausea or vomiting if patient unable to take oral ondansetron, Starting on Thu01/30/25 at 1725, Until Thu02/03/25 at 1526 ondansetron ODT (Zofran) tab 4 mg 4 mg, On Tongue, Q6H PRN Nausea, Vomiting, Starting on Thu01/30/25 at 1725, Until Thu02/03/25 at 1526 oxyCODONE (Oxy IR) tab 5 mg 5 mg, Oral, Q4H PRN Pain, Severe, Starting on Thu01/30/25 at 1725, Until Thu02/03/25 at 1526, Hold for somnolence or respiratory rate less than 10 Given 02/01/2025 11:15 PM EDT 5 mg oxyCODONE (Roxicodone) oral syrup 2.5 mg 2.5 mg, Oral, Q4H PRN Pain, Moderate, Starting on Thu01/30/25 at 1725, Until Thu02/03/25 at 1526 Given 02/02/2025 9:22 PM EDT 2.5 mg potassium chloride ER tab 20 mEq 20 mEq, Oral, ONCE, On Thu01/31/25 at 1045, For 1 dose, This med should NOT be Crushed or Chewed Given 01/31/2025 10:51 AM EDT 20 mEq potassium chloride ER tab 20 mEq 20 mEq, Oral, ONCE, On Thu02/01/25 at 0945, For 1 dose, This med should NOT be Crushed or Chewed Given 02/01/2025 9:33 AM EDT 20 mEq senna (Senokot) 2 Tablet 2 Tablet, Oral, BID (.AM/PM), First dose on Thu01/30/25 at 2100, Until Discontinued, hold if patient have loose stool or frequent bowel movements Given 02/03/2025 8:08 AM EDT 2 Tablets Given 02/02/2025 9:22 PM EDT 2 Tablets Given 02/02/2025 7:34 AM EDT 2 Tablets documented in this encounter Active and Recently Administered Medications Times are shown in EDT. Scheduled Medication Order 02/01/2025 02/02/2025 02/03/2025 Acetaminophen (Tylenol) tab 975 mg 975 mg, Oral, Q8H, First dose on Thu01/30/25 at 2200, Until Discontinued, Maximum 4 g acetaminophen/day. Avoid in patients with severe hepatic impairment or severe active liver disease. Use for 5 days. 0700 (Given - Provider: Adamaris Hermosillo RN)1342 (Given - Provider: Jenny Garcia RN)2116 (Given - Provider: Deedee Oquendo RN) 06 (Not Given - Provider: Deedee Oquendo RN - Reason: Refused-Notify Provider)141 (Given - Provider: Isabel Dewey RN)2121 (Given - Provider: Gwen Caballero, DEEPAK) 0536 (Given - Provider: Gwen Caballero, DEEPAK) atorvaSTATin (Lipitor) tab 40 mg 40 mg, Oral, Daily(AM), First dose on Thu01/31/25 at 1100, Until Discontinued 932 (Given - Provider: Jenny Garcia RN) 0734 (Given - Provider: Isabel Dewey RN) 0808 (Given - Provider: Neema Pena RN) buPROPion extended release (SR) (Wellbutrin SR) tab 150 mg 150 mg, Oral, BID (.AM/PM), First dose on Thu01/31/25 at 1100, Until Discontinued, [Therapeutic Interchange from Wellbutrin XL] 0933 (Given - Provider: Jenny Garcia RN)2116 (Given - Provider: Deedee Oquendo RN) 0734 (Given - Provider: Isabel Dewey RN)2121 (Given - Provider: Gwen Caballero, RN) 0808 (Given - Provider: Neema Pena, RN) chlorhexidine gluconate cloth 2 % pad External, [id number], First dose on Thu01/31/25 at 1000, Until Discontinued, Applied to appropriate patients per hogshead opener's recommendations following daily care. May use more than one Pad (cloth/wipe) as needed to complete care. 0928 (Given - Provider: Jenny Garcia, RN) 0734 (Given - Provider: Isabel Dewey, RN) 1000 (Due) Docusate Sodium (Colace) cap 100 mg 100 mg, Oral, BID (.AM/PM), First dose on Thu01/30/25 at 2100, Until Discontinued, For oral administration ONLY, if route of administration is other than oral and alternative product must be ordered. 09 (Given - Provider: Jenny Garcia RN)2117 (Given - Provider: Deedee Oquendo, DEEPAK) 0734 (Given - Provider: Isabel Dewey, DEEPAK)2121 (Given - Provider: Gwen Caballero RN) 0808 (Given - Provider: Neema Pena, DEEPAK) FLUoxetine (PROzac) cap 40 mg 40 mg, Oral, Daily(AM), First dose on Thu01/31/25 at 1100, Until Discontinued 932 (Given - Provider: Jenny Garcia RN) 0734 (Given - Provider: Isabel Dewey RN) 0808 (Given - Provider: Neema Pena, DEEPAK) Gabapentin (Neurontin) cap 300 mg 300 mg, Oral, HS, First dose on Thu01/31/25 at 2200, Until Discontinued 2117 (Given - Provider: Deedee Oquendo RN) 2121 (Given - Provider: Gwen Caballero RN) hEParin inj 5,000 Units 5,000 Units, Subcutaneous, Q8H, First dose on Thu01/31/25 at 1400, Until Discontinued 536 (Given - Provider: Adamaris Hermosillo RN)134 (Given - Provider: Jenny Garcia RN)2116 (Given - Provider: Deedee Oquendo, DEEPAK) 0531 (Given - Provider: Deedee Oquendo, DEEPAK)141 (Given - Provider: Isabel Dewey RN)2122 (Given - Provider: Gwen Caballero RN) 0536 (Given - Provider: Gwen Caballero RN) insulin aspart (NovoLOG) inj Subcutaneous, W/MEALS AND HS, First dose on Thu01/31/25 at 1200, Until Discontinued, LOW DOSE (Elderly insulin sensitive patient): Sliding Scale Correctional insulin may be given if the patient is NPO. Dose based on standard build from Insulin Calculator. Do not modify insulin doses in administration instructions!, Glucose less than 70 instructions: Obtain STAT lab blood glucose and call covering provider., Glucose 80-150 (units): 0, Glucose 151-200 (units): 1, Glucose 201-250 (units): 2, Glucose 251-300 (units): 3, Glucose greater than 300 (units): 4, Glucose greater than 300 instructions: Give suggested insulin dose and call covering provider. 0800 (No Insulin - Provider: Jenny Garcia RN - Reason: Parameter(s) Not Met - Comment: 101)1200 (No Insulin - Provider: Jenny Garcia RN - Reason: Parameter(s) Not Met - Comment: 100)1700 (No Insulin - Provider: Jenny Garcia RN - Reason: Parameter(s) Not Met - Comment: 138)2200 (No Insulin - Provider: Deedee Oquendo RN - Reason: Parameter(s) Not Met) 0800 (No Insulin - Provider: Isabel Dewey RN - Reason: Parameter(s) Not Met)1238 (Given - Provider: Isabel Dewey RN)1700 (No Insulin - Provider: Isabel Dewey RN - Reason: Parameter(s) Not Met)2200 (No Insulin - Provider: Gewn Caballero RN - Reason: Parameter(s) Not Met) 0800 (Not Given - Provider: Neema Pena RN - Reason: Parameter(s) Not Met) isolyte 500 mL bolus infusion (COMPLETED) Intravenous, Administer entire volume within 60 minutes or less. Plasma-LYTE 148, isolyte-S, and isolyte-S pH 7.4 are considered equivalent - including for MAR barcode scanning., ONCE, 1 dose, On Thu02/03/25 at 0145 0153 (New Bag - Provider: Gwen Caballero RN) levETIRAcetam (Keppra) tab 500 mg 500 mg, Oral, BID (.AM/PM), First dose on Thu01/31/25 at 2100, Last dose on Thu02/06/25 at 0900, For 12 doses 0700 (Given - Provider: Adamaris Hermosillo, DEEPAK)2116 (Given - Provider: eDedee Oquendo, DEEPAK) 07 (Given - Provider: Isabel Dewey, RN)2121 (Given - Provider: Gwen Caballero, RN) 807 (Given - Provider: Neema Pena, RN) Levothyroxine Sodium (Levoxyl) tab 125 mcg 125 mcg, Oral, [id number], First dose on Thu02/01/25 at 0630, Until Discontinued 704 (Given - Provider: Adamaris Hermosillo RN) 05 (Given - Provider: Deedee Oquendo, DEEPAK) 05 (Given - Provider: Gwen Caballero, DEEPAK) Mirtazapine (Remeron) tab 15 mg 15 mg, Oral, HS, First dose on Thu01/31/25 at 2200, Until Discontinued 2116 (Given - Provider: Deedee Oquendo RN) 2121 (Given - Provider: Gwen Caballero, DEEPAK) potassium chloride ER tab 20 mEq (COMPLETED) 20 mEq, Oral, ONCE, On Thu02/01/25 at 0945, For 1 dose, This med should NOT be Crushed or Chewed 932 (Given - Provider: Jenny Garcia, DEEPAK) senna (Senokot) 2 Tablet 2 Tablet, Oral, BID (.AM/PM), First dose on Thu01/30/25 at 2100, Until Discontinued, hold if patient have loose stool or frequent bowel movements 932 (Given - Provider: Jenny Garcia, DEEPAK)2116 (Given - Provider: Deedee Oquendo, DEEPAK) 733 (Given - Provider: Isabel Dewey, RN)2121 (Given - Provider: Gwen Caballero, DEEPAK) 807 (Given - Provider: Neema Pena, RN) PRN Medication Order 02/01/2025 02/02/2025 02/03/2025 dextrose 50% inj 25 mL 25 mL, IV Push, PRN Hypoglycemia, Other, For blood glucose 54 - 69 mg/dL or 70 - 100 mg/dL with symptoms AND patient is unresponsive, NPO, OR unable to swallow, Starting on Thu01/31/25 at 1021, Until Thu02/03/25 at 1526, Administer IV. Recheck blood glucose after 15 minutes. Notify provider. dextrose 50% inj 50 mL 50 mL, IV Push, PRN Hypoglycemia, Other, For blood glucose below 54 mg/dL AND patient unresponsive, NPO, OR unable to swallow, Starting on Thu01/31/25 at 1021, Until Thu02/03/25 at 1526, Administer IV. Recheck blood glucose in 15 minutes. Notify provider. glucagon (Glucagen) inj 1 mg 1 mg, Intramuscular, PRN Hypoglycemia, Other, If patient is unresponsive, or NPO and has no IV access, Starting on Thu01/31/25 at 1021, Until Thu02/03/25 at 1526, NPO and no IV access with either 1) blood glucose less than 100 mg/dL and symptomatic OR 2) blood glucose less than 70 mg/dL and asymptomatic Glucose (Glutose 15) 40 % gel 15 g of glucose 15 g of glucose, Oral, PRN Hypoglycemia (low sugar), Other, For blood glucose 54 - 69 mg/dL or 70 - 100 mg/dL with symptoms AND patient alert WITH difficulty chewing/swallowing, Starting on Thu01/31/25 at 1021, Until Thu02/03/25 at 1526, Administer gel. Recheck blood glucose after 15 minutes. Notify provider. 37.5 gram tube = 15 grams glucose = 1 each Glucose (Glutose 15) 40 % gel 30 g of glucose 30 g of glucose, Oral, PRN Hypoglycemia (low sugar), Other, For blood glucose below 54 mg/dL AND patient alert WITH difficulty chewing/swallowing, Starting on Thu01/31/25 at 1021, Until Thu02/03/25 at 1526, Administer gel. Recheck blood glucose after 15 minutes. Notify provider. 37.5 gram tube = 15 grams glucose = 1 each glucose chew tab 16 g 16 g, Oral, PRN Hypoglycemia, Other, For blood glucose 54 - 69 mg/dL or 70 - 100 mg/dL with symptoms and patient alert without difficulty chewing/swallowing., Starting on Thu01/31/25 at 1021, Until Thu02/03/25 at 1526 LORAzepam (Ativan) tab 0.5 mg 0.5 mg, Oral, Q8H PRN Anxiety, Starting on Thu01/31/25 at 1018, Until Thu02/03/25 at 1526 0734 (Given - Provider: Isabel Dewey RN)1503 (Given - Provider: Isabel Dewey, RN)2322 (Given - Provider: Gwen Caballero, DEEPAK) 1029 (Given - Provider: Neema Pena RN) ondansetron (Zofran) inj 4 mg(Linked Group 1) 4 mg, IV Push, Q6H PRN Other, May use for nausea or vomiting if patient unable to take oral ondansetron, Starting on Thu01/30/25 at 1725, Until Thu02/03/25 at 1526 ondansetron ODT (Zofran) tab 4 mg(Linked Group 1) 4 mg, On Tongue, Q6H PRN Nausea, Vomiting, Starting on Thu01/30/25 at 1725, Until Thu02/03/25 at 1526 oxyCODONE (Oxy IR) tab 5 mg 5 mg, Oral, Q4H PRN Pain, Severe, Starting on Thu01/30/25 at 1725, Until Thu02/03/25 at 1526, Hold for somnolence or respiratory rate less than 10 2315 (Given - Provider: Deedee Oquendo RN) oxyCODONE (Roxicodone) oral syrup 2.5 mg 2.5 mg, Oral, Q4H PRN Pain, Moderate, Starting on Thu01/30/25 at 1725, Until Thu02/03/25 at 1526 2122 (Given - Provider: Gwen Caballero, DEEPAK) Linked Groups Order Group 1: ondansetron ODT (Zofran) tab 4 mgJump to med 4 mg, On Tongue, Q6H PRN Nausea, Vomiting, Starting on Thu01/30/25 at 1725, Until Thu02/03/25 at 1526 Or ondansetron (Zofran) inj 4 mgJump to med 4 mg, IV Push, Q6H PRN Other, May use for nausea or vomiting if patient unable to take oral ondansetron, Starting on Thu01/30/25 at 1725, Until Thu02/03/25 at 1526 documented in this encounter Advance Directives Documents on File Type Date Recorded Patient Milk Of Lime Slaker Expl anation Power of Guest Relation Officer 06/08/2020 POWER OF A TTORNEY Power of Guest Relation Officer 04/19/2018 POWER OF A TTORNEY DURABLE HEALTH POWER OF HOLE DIGGER * No Code (Latest Code Status on File) Date Activated Date Inactivated Comments 01/30/2025 8:36 PM 02/03/2025 3:31 PM This order r eflects the patients wishes and were consensually agreed upon. Question Answer Comments Discussion of Advance Direct esequiel occurred with: Power of Guest Relation Officer/Patient Milk Of Lime Slaker Does the patient have a Living Will? Yes, in monica rt and reviewed as current Does the patient have Health Care Power of Guest Relation Officer? Yes, in chart and reviewed as current [...] and were consensually agreed upon. Care Teams Communications Administrator Relationship Specialty Start Date End Date Lydia February DONY [address] [place] [address] PCP - General Physician Research Compliance Specialist 05/25/24 documented as of this encounter
--- OUTSIDE RECORDS SUMMARY | 2025-03-08 13:51 | External Medical Summary ---
Author Name Unknown Address Unknown Organization : Laboratory Report Ordering Provider Test Date Status GARCIA ROSS 02/01/2025 17:40:32 Final Observation Date Value Abnormality Reference (Units ) Status Glucose Point of Care 02/01/2025 17:40:32 138 Above high normal 70-120 (mg/dL) Final Performing Location
--- OUTSIDE RECORDS SUMMARY | 2025-03-08 13:51 | External Medical Summary ---
Author Name Unknown Address Unknown Organization : Laboratory Report Ordering Provider Test Date Status GARCIA ROSS 02/02/2025 16:57:50 Final Observation Date Value Abnormality Reference (Units ) Status Glucose Point of Care 02/02/2025 16:57:50 150 Above high normal 70-120 (mg/dL) Final Performing Location
--- OUTSIDE RECORDS SUMMARY | 2025-03-08 13:51 | External Medical Summary ---
Author Name Unknown Address Unknown Organization : Laboratory Report Ordering Provider Test Date Status GARCIA ROSS 02/01/2025 21:06:12 Final Observation Date Value Abnormality Reference (Units ) Status Glucose Point of Care 02/01/2025 21:06:12 96 70-120 (mg/dL) Final Performing Location
--- OUTSIDE RECORDS SUMMARY | 2025-03-08 13:51 | External Medical Summary | Summary of Care ---
Author Name Unknown Organization [facility] Address [address] [place] [address] Phone [phone] Care Team Providers Care Rubber Tester Name Role Phone Lydia February DONY Primary Care Provider [phone] Reason for Visit * Reason Onset Date Comments [facility] Follow-up 01/31/2025 Encounter Details Date Type Department Care Team (Late st Contact Info) Description 01/31/2025 Telephone Rheumatology, [facility] [address] [place] [address] Aby Dallas CRNP [address], [place] [id number] [facility] Follow-up Allergies Active Allergy Reactions Criticality Noted Date Comments Sertraline Hcl 04/26/2012 Leg pain Simvastatin Muscle pain 01/10/2019 Sulfa Antibiotics 08/25/2001 rash documented as of this encounter (statuses as of 02/01/2025) Medications Multiple Vitamins-Minerals (PRESERVISION AREDS 2) Capsule Take 1 Cap by mouth 2 times a day. 60 Cap 12 10/22/20 17 Suspended Acetaminophen ER 650 MG Oral Tablet Extended Release Take 1 Tablet by mouth every 8 hours as needed for Pain, Moderate. Suspended Vitamin D3 25 MCG (1000 UT) Oral Tablet (Vitamin D3) Take 1 Tablet by mouth in the morning. 03/07/20 21 Suspended Sodium Chloride (Hypertonic) 5 % Ophthalmic Solution Instill 1 Drop into the right eye in the morning and 1 Drop before bedtime. Suspended Hydrocortisone 2.5 % External Lotion Apply to ear canal daily as needed for itching. 118 mL 3 08/03/20 23 Suspended Alendronate Sodium 70 MG Oral Tablet (Fosamax) Take 1 Tablet by mouth once a week. With a full glass of water. Remain upright for 30 minutes after taking. 12 Tablet 3 04/21/20 24 Suspended Clopidogrel Bisulfate 75 MG Oral Tablet (pLAVix) Take 1 Tablet by mouth in the morning. 90 Tablet 3 05/09/20 24 Suspended Atorvastatin Calcium 40 MG Oral Tablet (Lipitor)Indicatio ns:Dyslipidemia, goal LDL below 100 Take 1 Tablet by mouth in the morning. 90 Tablet 2 05/25/20 24 Suspended OneTouch Ultra In Vitro Strip (Glucose Blood)Indications: Type 2 diabetes mellitus with hemoglobin A1c goal of less than 7.0% ([facility]) USE STRIP TO CHECK GLUCOSE UP TO TWICE DAILY DIRECTED 200 Strip 3 06/14/20 24 Suspended metFORMIN HCl ER 500 MG Oral Tablet Extended Release 24 Hour (Glucophage XR)Indications:Typ e 2 diabetes mellitus with hemoglobin A1c goal of less than 7.0% ([facility]) TAKE 2 TABLETS BY MOUTH TWICE DAILY WITH MORNING MEAL AND WITH EVENING MEAL 360 Tablet 1 08/26/20 24 Suspended FLUoxetine HCl 40 MG Oral Capsule (PROzac) Take 1 capsule by mouth in the morning 90 Capsule 1 08/26/20 24 Suspended Lisinopril 5 MG Oral Tablet (Prinivil) TAKE 1 TABLET BY MOUTH IN THE MORNING 90 Tablet 1 09/15/20 24 Suspended Levothyroxine Sodium 125 MCG Oral Tablet (Levoxyl)Indicatio ns:Acquired hypothyroidism TAKE 1 TABLET BY MOUTH IN THE MORNING AT LEAST 30 MINUTES PRIOR TO OTHER MEDICATIONS OR BREAKFAST 90 Tablet 11/16/19 25 Suspended buPROPion HCl ER (XL) 300 MG Oral Tablet Extended Release 24 Hour (Wellbutrin XL) Take 1 Tablet by mouth in the morning. 30 Tablet 11 11/29/19 25 Suspended Mirtazapine 15 MG Oral Tablet (Remeron) Take 1 Tablet by mouth at bedtime. 90 Tablet 3 11/29/19 25 Suspended LORazepam 1 MG Oral Tablet (Ativan)Indication s:RACHEL (generalized anxiety disorder) TAKE 1/2 TABLET BY MOUTH EVERY 8 HOURS NEEDED FOR ANXIETY (1/2 TAB UP TO THREE TIMES DAILY). 23 Tablet 01/31/20 25 Suspended Gabapentin 300 MG Oral Capsule (Neurontin)Indicat ions:New onset of headaches after age 50,Chronic ischemic left MCA stroke,Aphasia Take 1 Capsule by mouth at bedtime. 90 Capsule 3 01/27/20 25 Suspended documented as of this encounter (statuses as of 02/01/2025) Active Problems Problem Noted Date Diagnosed Date History of cataract extraction 01/30/2025 Expressive aphasia [...] as of this encounter (statuses as of 02/01/2025) Resolved Problems Problem Noted Date Diagnosed Date [...] as of this encounter (statuses as of 02/01/2025) Immunizations Name Administration Dates Next Due COVID-19 mRNA, LNP-s, No Pre serve, 2-Dose Series ([employer]) 12/26/2021,2021,05/24/2021 Covid-19, Mrna, Lnp-s, Pf, B ivalent, [...] Influenza, Quadriva lent Hd (Fluzone Hd) 07/29/2023,07/22/2022 TD - Tetanus/Diptheria (ADULT) 03/29/1999 TDAP (age 10 and older)(Boostrix) 07/22/2022 TDAP, [...] of Assessment Author No 01/30/2025 7:53 PM EDMeng Torre RN * Are you blind or do you have serious difficulty seeing, even when wearing glasses? Answer Date of Assessment Author No 01/30/2025 7:53 PM Meng Patel RN * Do you have serious difficulty walking or climbing stairs? (5 years old or older) Answer Date of Assessment Author No 01/30/2025 7:53 PM EDMeng Torre RN * Do you have difficulty dressing [...] encounter Miscellaneous Notes * Telephone Encounter - Janette Gurrola OSA - 02/01/2025 11:25 AM EDT Scheduled and sent MyG to patients guardian. MARCIN Lima * Telephone Encounter - Aby Dallas CRNP - 01/31/2025 5:05 PM EDT Inpatient [facility] ([facility] Name: Allie Diaz : 1945 Gender: female Comments: 79 year old with OP on Fosamax now with fragility fracture of wrist. Needs follow up [facility] within 6-8 weeks to consider switching to Prolia. Please call patient's guardian to schedule. I will order DXA. Fracture: Wrist fracture Suggested Treatment: Prolia Needs DXA: needed (we will order) ELMER Prasad documented in this encounter Plan of Treatment Upcoming Encounters Date Type Department Care Team (Late st Contact Info) Description 02/08/2025 11:30 AM EDT Office Visit Ophthalmology, [facility] [address] [address] Roe Falcon DO [address] [address] 02/14/2025 9:45 AM EDT Imaging Radiology [facility] [address] [place] [phone] 02/27/2025 11:00 AM EDT Office Visit Family Practice [facility] [address] [place] [address] Janice Freeman PA-C [address] [place] [address] 03/08/2025 9:00 AM EDT Imaging Radiology [facility] [address] [place] [phone] 03/08/2025 11:00 AM EDT Office Visit Rheumatology [facility] [address] [place] [phone] Gio Zaragoza CRNP [facility] [place] [address] Scheduled Orders Name Type Priority Associated Diagnoses Orde r Schedule DEXA SCAN/BONE MINERAL AXIAL Medical Imaging Routine Age-related osteoporosis without current pathological fracture Expected: 01/31/2025, Expires: 03/03/2026 Scheduled Procedures Name Priority Associated [...] 07/29/2023, 07/22/2022, Additional history exists Albumin/Creatinine Ratio 10/01/202510/01/2 024, 01/15/2023, 11/28/2022, Additional history exists Colonoscopy 11/29/2025 11/29/2020, 11/16, 11/07/2014, Additional history exists TSH 11/29/2025 11/29/2024, 01/14, 01/15/2023, Additional history exists GFR 02/01/2026 02/01/2025, 01/14, 01/30/2025, Additional history exists DTap/Tdap Vaccines (3 - Td or Tdap) 07/22/2032 07/22/2022, 03/18/2009, 03/29/1999 RETIRED - COLONOSCOPY-EVERY 5 YRS AGES 18-100 Discontinued 11/29/2020, 11/29/2020, 11/07/2014, Additional history exists Influenza Vaccine (FLU shot) Completed 08/01/2024, 07/29/2023, 07/22/2022, Additional history exists VITAMIN D LEVEL ONCE IN A LIFETIME-USE SMARTSET# [id number] Completed 02/01/2025, 01/15/2023, 07/18/2021, Additional history exists [...] this encounter Medical Devices Implanted Type Area Band Tacker Device Identifier Shelf Expiration Date Model / Serial / Lot Sofport Intraocular Posterior Chamber Lens Implanted:Qty: 1 on 02/02/2017 by Gabriel Acosta MD at OR [facility] Right: Eye [employer] 05/15/2021 [id number] / [id number] / [id number] Lens Intraoc 29.0 - [id number] - [id number] Implanted:Qty: 1 on 02/09/2017 by Gabriel Acosta MD at OR [facility] Left: Eye [employer] 12/16/2018 [id number] / [id number] / [id number] Clip Quick 2.8mm 230cm - [id number] Implanted:Qty: 2 on 11/29/2020 by Sharon Benitez MD at ENDOSCOPY [facility] [employer] 11/15/2022 [id number] / / documented as of this encounter Visit Diagnoses Diagnosis Age-related osteoporosis without current pathological fracture- Primary Senile osteoporosis documented in this encounter Advance Directives Documents on File Type Date Recorded Patient Brick Grader Expl anation Power of Continuum Of Care Manager 06/08/2020 POWER OF A TTORNEY Power of Continuum Of Care Manager 04/19/2018 POWER OF A TTORNEY DURABLE HEALTH POWER OF ASSEMBLER WET WASH * No Code (Latest Code Status on File) Date Activated Date Inactivated Comments 01/30/2025 8:36 PM This order ref lects the patients wishes and were consensually agreed upon. Question Answer Comments Discussion of Advance Direct esequiel occurred with: Power of Continuum Of Care Manager/Patient Brick Grader Does the patient have a Living Will? Yes, in monica rt and reviewed as current Does the patient have Health Care Power of Continuum Of Care Manager? Yes, in chart and reviewed as [...] and were consensually agreed upon. Care Teams Rubber Tester Relationship Specialty Start Date End Date Lydia February DONY Santos [facility] [place] [address] [place] [id number] PCP - General Physician Charge Account Identification Clerk 05/25/24 documented as of this encounter
--- OUTSIDE RECORDS SUMMARY | 2025-03-08 13:51 | External Medical Summary ---
Author Name Unknown Address Unknown Organization : Laboratory Report Ordering Provider Test Date Status GARCIA ROSS 02/03/2025 07:35:11 Final Observation Date Value Abnormality Reference (Units ) Status Glucose Point of Care 02/03/2025 07:35:11 101 70-120 (mg/dL) Final Performing Location
--- OUTSIDE RECORDS SUMMARY | 2025-03-08 13:51 | External Medical Summary ---
Author Name Unknown Address Unknown Organization K01:[facility] [address] [facility] [address] Laboratory Report Ordering Provider Test Date Status TYLER JORGE 02/03/2025 07:06:00 Final Observation Date Value Abnormality Reference (Units ) Status WBC, Total 02/03/2025 07:06:00 6.31 4.00-10.80 (K/uL) Final RBC 02/03/2025 07:06:00 3.70 3.85-5.15 (M/uL) Final Hemoglobin 02/03/2025 07:06:00 10.5 Below low normal 12.0-15.3 (g/dL) Final HCT 02/03/2025 07:06:00 34.2 Below low normal 36.0-45.2 (%) Final MCV 02/03/2025 07:06:00 92.4 81.5-97.5 (fL) Final MCH 02/03/2025 07:06:00 28.4 27.0-34.0 (pg) Final MCHC 02/03/2025 07:06:00 30.7 32.0-36.0 (g/dL) Final RDW 02/03/2025 07:06:00 14.3 11.5-15.5 (%) Final Platelets 02/03/2025 07:06:00 196 140-400 (K/uL) Final MPV 02/03/2025 07:06:00 9.7 6.6-11.1 (fL) Final Nucleated erythrocytes/100 leukocytes [Ratio] in Blood by Automated count 02/03/2025 07:06:00 0 <=0 (/100 WBCs) Final Performing Location [facility] [address] [place] [address]
--- OUTSIDE RECORDS SUMMARY | 2025-03-08 13:51 | External Medical Summary ---
Author Name Unknown Address Unknown Organization : Laboratory Report Ordering Provider Test Date Status GARCIA ROSS 02/02/2025 21:21:21 Final Observation Date Value Abnormality Reference (Units ) Status Glucose Point of Care 02/02/2025 21:21:21 145 Above high normal 70-120 (mg/dL) Final Performing Location
--- OUTSIDE RECORDS SUMMARY | 2025-03-08 13:51 | External Medical Summary ---
Author Name Unknown Address Unknown Organization [id number]:LABORATORY [facility] [place] - [facility] [address] [facility] [address] Laboratory Report Ordering Provider Test Date Status TYLER JORGE 02/01/2025 06:34:00 Final Observation Date Value Abnormality Reference (Units ) Status WBC, Total 02/01/2025 06:34:00 7.10 4.00-10.80 (K/uL) Final RBC 02/01/2025 06:34:00 3.63 3.85-5.15 (M/uL) Final Hemoglobin 02/01/2025 06:34:00 10.2 Below low normal 12.0-15.3 (g/dL) Final HCT 02/01/2025 06:34:00 33.0 Below low normal 36.0-45.2 (%) Final MCV 02/01/2025 06:34:00 90.9 81.5-97.5 (fL) Final MCH 02/01/2025 06:34:00 28.1 27.0-34.0 (pg) Final MCHC 02/01/2025 06:34:00 30.9 32.0-36.0 (g/dL) Final RDW 02/01/2025 06:34:00 14.4 11.5-15.5 (%) Final Platelets 02/01/2025 06:34:00 169 140-400 (K/uL) Final MPV 02/01/2025 06:34:00 9.7 6.6-11.1 (fL) Final Nucleated erythrocytes/100 leukocytes [Ratio] in Blood by Automated count 02/01/2025 06:34:00 0 <=0 (/100 WBCs) Final Performing Location LABORATORY [facility] - [address] [place] [address]
--- OUTSIDE RECORDS SUMMARY | 2025-03-08 13:51 | External Medical Summary ---
Author Name Unknown Address Unknown Organization [id number]:LABORATORY [facility] - [address] [place] [address] Laboratory Report Ordering Provider Test Date Status DOT CORTES 02/02/2025 06:22:00 Final Observation Date Value Abnormality Reference (Units ) Status Phosphate 02/02/2025 06:22:00 3.5 2.5-4.8 (m g/dL) Final Performing Location LAB[facility]ORY [facility] - [address] [place] [address]
--- OUTSIDE RECORDS SUMMARY | 2025-03-08 13:51 | External Medical Summary ---
Author Name Unknown Address Unknown Organization K01:LABORATORY [facility] - [address] [place] [address] Laboratory Report Ordering Provider Test Date Status DOT CORTES 02/01/2025 06:34:00 Final Observation Date Value Abnormality Reference (Units ) Status Magnesium 02/01/2025 06:34:00 2.1 1.5-2.6 (m g/dL) Final Performing Location [facility] - [address] [place] [address]
--- OUTSIDE RECORDS SUMMARY | 2025-03-08 13:51 | External Medical Summary ---
Author Name Unknown Address Unknown Organization : Laboratory Report Ordering Provider Test Date Status GARCIA ROSS 02/02/2025 07:52:21 Final Observation Date Value Abnormality Reference (Units ) Status Glucose Point of Care 02/02/2025 07:52:21 85 70-120 (mg/dL) Final Performing Location
--- OUTSIDE RECORDS SUMMARY | 2025-03-08 13:51 | External Medical Summary ---
Author Name Unknown Address Unknown Organization [id number]:LABORATORY [facility] - [address] [place] [address] Laboratory Report Ordering Provider Test Date Status DOT CORTES 02/02/2025 06:22:00 Final Observation Date Value Abnormality Reference (Units ) Status Magnesium 02/02/2025 06:22:00 2.2 1.5-2.6 (m g/dL) Final Performing Location [facility] - [address] [place] [address]
--- OUTSIDE RECORDS SUMMARY | 2025-03-08 13:51 | External Medical Summary ---
Author Name Unknown Address Unknown Organization K01:LABORATORY [facility] - [address] [facility] [address] Laboratory Report Ordering Provider Test Date Status TYLER JORGE 02/02/2025 06:22:00 Final Observation Date Value Abnormality Reference (Units ) Status WBC, Total 02/02/2025 06:22:00 7.00 4.00-10.80 (K/uL) Final RBC 02/02/2025 06:22:00 3.77 3.85-5.15 (M/uL) Final Hemoglobin 02/02/2025 06:22:00 10.7 Below low normal 12.0-15.3 (g/dL) Final HCT 02/02/2025 06:22:00 34.2 Below low normal 36.0-45.2 (%) Final MCV 02/02/2025 06:22:00 90.7 81.5-97.5 (fL) Final MCH 02/02/2025 06:22:00 28.4 27.0-34.0 (pg) Final MCHC 02/02/2025 06:22:00 31.3 32.0-36.0 (g/dL) Final RDW 02/02/2025 06:22:00 14.4 11.5-15.5 (%) Final Platelets 02/02/2025 06:22:00 190 140-400 (K/uL) Final MPV 02/02/2025 06:22:00 9.6 6.6-11.1 (fL) Final Nucleated erythrocytes/100 leukocytes [Ratio] in Blood by Automated count 02/02/2025 06:22:00 0 <=0 (/100 WBCs) Final Performing Location LABORATORY [facility] - [address] [place] [address]
--- OUTSIDE RECORDS SUMMARY | 2025-03-08 13:51 | External Medical Summary ---
Author Name Unknown Address Unknown Organization K01:LABORATORY [facility] - [facility] [address] [facility] [address] Laboratory Report Ordering Provider Test Date Status MARLENI ROMO 02/01/2025 17:32:00 Final Observation Date Value Abnormality Reference (Units ) Status WBC, Total 02/01/2025 17:32:00 7.98 4.00-10.80 (K/uL) Final RBC 02/01/2025 17:32:00 3.89 3.85-5.15 (M/uL) Final Hemoglobin 02/01/2025 17:32:00 11.0 Below low normal 12.0-15.3 (g/dL) Final HCT 02/01/2025 17:32:00 34.7 Below low normal 36.0-45.2 (%) Final MCV 02/01/2025 17:32:00 89.2 81.5-97.5 (fL) Final MCH 02/01/2025 17:32:00 28.3 27.0-34.0 (pg) Final MCHC 02/01/2025 17:32:00 31.7 32.0-36.0 (g/dL) Final RDW 02/01/2025 17:32:00 14.4 11.5-15.5 (%) Final Platelets 02/01/2025 17:32:00 212 140-400 (K/uL) Final MPV 02/01/2025 17:32:00 9.8 6.6-11.1 (fL) Final Nucleated erythrocytes/100 leukocytes [Ratio] in Blood by Automated count 02/01/2025 17:32:00 0 <=0 (/100 WBCs) Final Performing Location LABORATORY [facility] - [address] [place] [address]
--- OUTSIDE RECORDS SUMMARY | 2025-03-08 13:51 | External Medical Summary ---
Author Name Unknown Address Unknown Organization : Laboratory Report Ordering Provider Test Date Status GARCIA ROSS 02/01/2025 08:13:00 Final Observation Date Value Abnormality Reference (Units ) Status Glucose Point of Care 02/01/2025 08:13:00 101 70-120 (mg/dL) Final Performing Location
--- OUTSIDE RECORDS SUMMARY | 2025-03-08 13:52 | External Medical Summary ---
Author Name Unknown Address Unknown Organization K01:LABORATORY C - [address] [place] [address] Laboratory Report Ordering Provider Test Date Status DOT CORTES 01/31/2025 07:10:00 Final Observation Date Value Abnormality Reference (Units ) Status Phosphate 01/31/2025 07:10:00 3.8 2.5-4.8 (m g/dL) Final Performing Location LABORATORY [facility] - [address] [place] [address]
--- OUTSIDE RECORDS SUMMARY | 2025-03-08 13:52 | External Medical Summary ---
Author Name Unknown Address Unknown Organization K01:LABORATORY [facility] [place] [address] [place] [address] Laboratory Report Ordering Provider Test Date Status DOT CORTES 01/31/2025 07:10:00 Final Observation Date Value Abnormality Reference (Units ) Status BUN 01/31/2025 07:10:00 17 6-20 (mg/dL) Final Creatinine 01/31/2025 07:10:00 0.8 0.5-1.0 (mg/dL) Final Glomerular filtration rate/1.73 sq M.predicted [Volume Rate/Area] in Serum, Plasma or Blood by Creatinine-based formula (CKD-EPI) 01/31/2025 07:10:00 78 >=60 (mL/min) Final eGFR is calculated based on the CKD-EPI 2020 equation. Sodium 01/31/2025 07:10:00 141 135-146 (m mol/L) Final Potassium 01/31/2025 07:10:00 3.7 3.5-5.1 (m mol/L) Final Cl 01/31/2025 07:10:00 107 98-107 (mm ol/L) Final CO2 01/31/2025 07:10:00 24 22-32 (mmo l/L) Final Anion gap 01/31/2025 07:10:00 10 7-15 (mmol /L) Final Glucose 01/31/2025 07:10:00 97 70-120 (mg /dL) Final Calcium 01/31/2025 07:10:00 8.1 Below low normal 8.4 -10.2 (mg/dL) Final Performing Location LABORATORY [facility] - [address] [place] [address]
--- OUTSIDE RECORDS SUMMARY | 2025-03-08 13:52 | External Medical Summary ---
Author Name Unknown Address Unknown Organization K01:[facility] [place] [address] [place] [address] Laboratory Report Ordering Provider Test Date Status BENJAMIN CORONA 01/31/2025 01:35:11 Final Observation Date Value Abnormality Reference (Units) Status Bacteria identified in Specimen by Culture 01/31/2025 01:35:11 No significant growth Final Test: Culture, Urine, Quanti tative
Specimen Source: Urine, Clean Catch
Specimen Type: Urine
Specimen Date: 01/31/2025 0135
Result Date: 02/01/2025 0737
Result Status: Final result
Resulting Lab: [facility]
[address]
[place] [address]

CULTURE

No significant growth

null Performing Location LABORATORY [facility] [place] [address] [facility] [address]
--- OUTSIDE RECORDS SUMMARY | 2025-03-08 13:52 | External Medical Summary | Summary of Care ---
Author Name Unknown Organization [facility] Address [address] [place] [address] Phone [phone] Care Team Providers Care Technical Support 1 Software Engineer Name Role Phone Lydia February DONY Primary Care Provider [phone] Reason for Visit * Reason Onset Date Comments [facility] Follow-up 01/31/2025 Encounter Details Date Type Department Care Team (Late st Contact Info) Description 01/31/2025 Telephone Rheumatology, [place] [address] [place] [address] Aby Dallas CRNP [address], [place] [id number] [facility] Follow-up Allergies Active Allergy Reactions Criticality [...] hemoglobin A1c goal of less than 7.0% ([facility]) USE STRIP TO CHECK GLUCOSE UP TO TWICE DAILY DIRECTED 200 Strip 3 06/14/20 24 Suspended metFORMIN HCl ER 500 MG Oral Tablet Extended Release 24 Hour (Glucophage XR)Indications:Typ e 2 diabetes mellitus with hemoglobin A1c goal of less than 7.0% ([facility]) TAKE 2 TABLETS BY MOUTH TWICE [...] mRNA, LNP-s, No Pre serve, 2-Dose Series (JourneyPure) 12/26/2021,2021,05/24/2021 Covid-19, Mrna, Lnp-s, Pf, B ivalent, [...] 01/30/2025 7:53 PM EDMeng Torre RN * Because of a physical, mental, [...] encounter Miscellaneous Notes * Telephone Encounter - Aby Dallas CRNP - 01/31/2025 5:05 PM EDT Inpatient [facility] Summary ([facility]) Name: Allie Diaz : 1945 Gender: female Comments: 79 year old with OP on Fosamax now with fragility fracture of wrist. Needs [facility] within 6-8 weeks to consider switching to Prolia. Please call patient's guardian to schedule. I will order DXA. Fracture: Wrist fracture Suggested Treatment: Prolia Needs DXA: needed (we will order) ELMER Prasad documented in this encounter Plan of Treatment Upcoming Encounters Date Type Department Care Team (Late st Contact Info) Description 02/08/2025 11:30 AM EDT Office Visit Ophthalmology, [facility] [address] [place] [address] Roe Falcon DO [address] [place] [address] 02/27/2025 11:00 AM EDT Office Visit [facility] [address] [place] [address] Janice Freeman PA-C [address] [place] [address] Scheduled Orders Name Type Priority Associated Diagnoses [...] 11/29/2024, 01/14, 01/15/2023, Additional history exists GFR 01/31/2026 01/31/2025, 01/14, 01/27/2024, Additional history exists DTap/Tdap Vaccines (3 - Td or Tdap) 07/22/2032 07/22/2022, 03/18/2009, 03/29/1999 RETIRED - COLONOSCOPY-EVERY 5 YRS AGES 18-100 Discontinued 11/29/2020, 11/29/2020, 11/07/2014, Additional history exists VITAMIN D LEVEL ONCE IN A LIFETIME-USE SMARTSET# [id number] Completed 01/15/2023, 07/18/2021, 03/01/2021, Additional history exists Influenza Vaccine (FLU shot) Completed 08/01/2024, 07/29/2023, 07/22/2022, Additional history exists HPV (Gardasil) Vaccine Aged [...] this encounter Medical Devices Implanted Type Area Waffle Machine Operator Device Identifier Shelf Expiration Date Model / Serial / Lot Sofport Intraocular Posterior Chamber Lens Implanted:Qty: 1 on 02/02/2017 by Gabriel Acosta MD at OR [facility] Right: Eye [employer] 05/15/2021 [id number] / [id number] / [id number] Lens Intraoc 29.0 - [id number] - [id number] Implanted:Qty: 1 on 02/09/2017 by Gabriel Acosta MD at OR [facility] Left: Eye [employer] 12/16/2018 [id number] / [id number] / [id number] Clip Quick 2.8mm 230cm - [id number] Implanted:Qty: 2 on 11/29/2020 by Sharon Benitez MD at ENDOSCOPY [facility] [employer] 11/15/2022 [id number] / documented as of this encounter Visit Diagnoses Diagnosis Age-related osteoporosis without current pathological fracture- Primary Senile osteoporosis documented in this encounter Advance Directives Documents on File Type Date Recorded Patient Supervisor Rough End Expl anation Power of Fire Hydrant Mechanic 06/08/2020 POWER OF A TTORNEY Power of Fire Hydrant Mechanic 04/19/2018 POWER OF A TTORNEY DURABLE HEALTH POWER OF ASSISTANT PROFESSOR OF CHEMISTRY * No Code (Latest Code Status on File) Date Activated Date Inactivated Comments 01/30/2025 8:36 PM This order ref lects the patients wishes and were consensually agreed upon. Question Answer Comments Discussion of Advance Direct esequiel occurred with: Power of Fire Hydrant Mechanic/Patient Supervisor Rough End Does the patient have a Living Will? Yes, in monica rt and reviewed as current Does the patient have Health Care Power of Fire Hydrant Mechanic? Yes, in chart and reviewed as current [...] and were consensually agreed upon. Care Teams Technical Support 1 Software Engineer Relationship Specialty Start Date End Date Janice Freeman PA-C [address] [place] [address] PCP - General Physician [place] 05/25/24 documented as of this encounter
--- OUTSIDE RECORDS SUMMARY | 2025-03-08 13:52 | External Medical Summary ---
Author Name Unknown Address Unknown Organization : Laboratory Report Ordering Provider Test Date Status GARCIA ROSS 01/31/2025 21:56:07 Final Observation Date Value Abnormality Reference (Units ) Status Glucose Point of Care 01/31/2025 21:56:07 158 Above high normal 70-120 (mg/dL) Final Performing Location
--- OUTSIDE RECORDS SUMMARY | 2025-03-08 13:52 | External Medical Summary ---
Author Name Unknown Address Unknown Organization K01:LABORATORY [facility] [place] - [address] [facility] [address] Laboratory Report Ordering Provider Test Date Status KEVINCHIKISSWAPNA 01/30/2025 23:17:00 Final Observation Date Value Abnormality Reference (Units ) Status WBC, Total 01/30/2025 23:17:00 8.14 4.00-10.80 (K/uL) Final RBC 01/30/2025 23:17:00 3.93 3.85-5.15 (M/uL) Final Hemoglobin 01/30/2025 23:17:00 11.0 Below low normal 12.0-15.3 (g/dL) Final HCT 01/30/2025 23:17:00 35.3 Below low normal 36.0-45.2 (%) Final MCV 01/30/2025 23:17:00 89.8 81.5-97.5 (fL) Final MCH 01/30/2025 23:17:00 28.0 27.0-34.0 (pg) Final MCHC 01/30/2025 23:17:00 31.2 32.0-36.0 (g/dL) Final RDW 01/30/2025 23:17:00 14.4 11.5-15.5 (%) Final Platelets 01/30/2025 23:17:00 197 140-400 (K/uL) Final MPV 01/30/2025 23:17:00 9.4 6.6-11.1 (fL) Final Nucleated erythrocytes/100 leukocytes [Ratio] in Blood by Automated count 01/30/2025 23:17:00 0 <=0 (/100 WBCs) Final Performing Location LABORATORY [facility] [place] - [address] [place] [address]
--- OUTSIDE RECORDS SUMMARY | 2025-03-08 13:52 | External Medical Summary ---
Author Name Unknown Address Unknown Organization : Laboratory Report Ordering Provider Test Date Status GARCIA ROSS 01/31/2025 17:24:24 Final Observation Date Value Abnormality Reference (Units ) Status Glucose Point of Care 01/31/2025 17:24:24 133 Above high normal 70-120 (mg/dL) Final Performing Location
--- OUTSIDE RECORDS SUMMARY | 2025-03-08 13:52 | External Medical Summary ---
Author Name Unknown Address Unknown Organization K01:LABORATORY [facility] [place] [place] - [address] [address] Laboratory Report Ordering Provider Test Date Status PETTY VISHAL 01/31/2025 01:35:11 Final Observation Date Value Abnormality Reference (Units) Status Color of Urine by Auto 01/31/2025 01:35:11 Light Yellow Colorless, Light Yellow, Yellow, Dark Yellow Final Clarity, Urine 01/31/2025 01:35:11 Clear Clear Final Glucose [Mass/volume] in Urine by Automated test strip 01/31/2025 01:35:11 Negative Negative (mg/dL) Final Bilirubin.total [Presence] in Urine by Automated test strip 01/31/2025 01:35:11 Negative Negative Final Ketones [Mass/volume] in Urine by Automated test strip 01/31/2025 01:35:11 Negative Negative (mg/dL) Final Specific gravity, Urine 01/31/2025 01:35:11 >1.050 Above high normal 1.003-1.030 Final Hemoglobin [Presence] in Urine by Automated test strip 01/31/2025 01:35:11 Negative Negative Final pH, Urine 01/31/2025 01:35:11 7.5 5.0-7.5 (Units) Final Protein [Mass/volume] in Urine by Automated test strip 01/31/2025 01:35:11 Trace Abnormal Negative (mg/dL) Final Urobilinogen [Mass/volume] in Urine by Automated test strip 01/31/2025 01:35:11 2.0 Abnormal Normal (mg/dL) Final Nitrite [Presence] in Urine by Automated test strip 01/31/2025 01:35:11 Negative Negative Final Leukocyte esterase [Presence] in Urine by Automated test strip 01/31/2025 01:35:11 Negative Negative Final RBC, Urine 01/31/2025 01:35:11 0-2 0-2 (/HPF) Final WBC, Urine 01/31/2025 01:35:11 0-2 0-2 (/HPF) Final Bacteria [#/area] in Urine sediment by Microscopy high power field 01/31/2025 01:35:11 0-25 0-25 (/HPF) Final CULTURE, URINE - [facility] 01/31/2025 01:35:11 Final Culture not indicated by uri nalysis results\X09\ Performing Location LABORATORY [facility] [place] [place] - [facility] [address] [facility] [address]
--- OUTSIDE RECORDS SUMMARY | 2025-03-08 13:52 | External Medical Summary ---
Author Name Unknown Address Unknown Organization : Laboratory Report Ordering Provider Test Date Status GARCIA ROSS 01/31/2025 11:29:43 Final Observation Date Value Abnormality Reference (Units ) Status Glucose Point of Care 01/31/2025 11:29:43 90 70-120 (mg/dL) Final Performing Location
--- OUTSIDE RECORDS SUMMARY | 2025-03-08 13:52 | External Medical Summary | Summary of Care ---
Author Name Unknown Organization [facility] Address [address] [place] [address] Phone [phone] Care Team Providers Care Asparagus Buncher Name Role Phone Janice Freeman PA-C Primary Care Provider [phone] Reason for Visit * Reason Onset Date Comments Medication Refill 01/25/2025 Encounter Details Date Type Department Care Team (Late st Contact Info) Description 01/25/2025 Refill Family Practice [facility] [address] [place] [address] Janice Freeman PA-C [address] [place] [address] RACHEL (generalized anxiety disorder) Allergies Active Allergy Reactions Criticality Noted Date Comments Sertraline Hcl 04/26/2012 Leg pain Simvastatin Muscle pain 01/10/2019 Sulfa Antibiotics 08/25/2001 rash documented as of this encounter (statuses as of 01/31/2025) Medications Multiple Vitamins-Minerals (PRESERVISION AREDS 2) Capsule [...] and 1 Drop before bedtime. Suspended Hydrocortisone 2 % External Lotion Apply topically to affected area daily as needed for Dry Skin. Apply to ear canal as needed for itching 29.6 mL 1 07/29/20 23 025 Discontinue d(Medicatio n List Clean Up) Hydrocortisone 2.5 % External Lotion Apply to [...] Suspended Atorvastatin Calcium 40 MG Oral Tablet (Lipitor)Indicati ons:Dyslipidemia, goal LDL below 100 Take 1 Tablet by mouth in the morning. 90 Tablet 2 05/25/20 24 Suspended OneTouch Ultra In Vitro Strip (Glucose Blood)Indications :Type 2 diabetes mellitus with hemoglobin A1c goal of less than 7.0% (HCC) USE STRIP TO CHECK GLUCOSE UP TO TWICE DAILY DIRECTED 200 Strip 3 06/14/20 24 Suspended LORazepam 1 MG Oral Tablet (Ativan)Indicatio ns:RACHEL (generalized anxiety disorder) TAKE 1/2 TABLET BY MOUTH EVERY 8 HOURS NEEDED FOR ANXIETY (1/2 TAB UP TO THREE TIMES DAILY). 23 Tablet 08/23/20 24 025 Discontinue d(Refill) metFORMIN HCl ER 500 MG Oral Tablet [...] Suspended Levothyroxine Sodium 125 MCG Oral Tablet (Levoxyl)Indicati [...] 25 Suspended LORazepam 1 MG Oral Tablet (Ativan)Indicatio ns:RACHEL (generalized anxiety disorder) TAKE 1/2 TABLET BY MOUTH EVERY 8 HOURS NEEDED FOR ANXIETY (1/2 TAB UP TO THREE TIMES DAILY). 23 Tablet 01/31/20 25 Suspended Gabapentin 300 MG Oral Capsule (Neurontin)Indica tions:New onset of headaches after age 50,Chronic ischemic left MCA stroke,Aphasia Take 1 Capsule by mouth at bedtime. 90 Capsule 3 01/27/20 25 Suspended Hospital, Clinic, or Other Facility Administered Medication [...] as of this encounter (statuses as of 01/31/2025) Active Problems Problem Noted Date Diagnosed Date [...] as of this encounter (statuses as of 01/31/2025) Resolved Problems Problem Noted Date Diagnosed Date [...] as of this encounter (statuses as of 01/31/2025) Immunizations Name Administration Dates Next Due COVID-19 mRNA, LNP-s, No Pre serve, 2-Dose Series (conXt) 12/26/2021,2021,05/24/2021 Covid-19, Mrna, Lnp-s, Pf, B ivalent, 30 Mcg, IM, 12 yrs and above (conXt) 09/05/2022 Pneumococcal Conjugate Vacc, 13 Valent (Prevnar) [...] on file documented as of this encounter Miscellaneous Notes * Telephone Encounter - Janice Freeman PA-C - 01/30/2025 5:42 PM EDTSigned Prescriptions: Disp Refills LORazepam 1 MG Oral Tablet (Ativan) 23 Tab*0 Sig: TAKE 1/2 TABLET BY MOUTH EVERY 8 HOURS NEEDED FOR ANXIETY (1/2 TAB UP TO THREE TIMES DAILY). Authorizing Provider: JANICE FREEMAN * Telephone Encounter - Alena George RP - 01/27/2025 6:20 AM EDT Pending Prescriptions: Disp Refills LORazepam 1 MG Oral Tablet (Ativan) 23 Tab*0 Sig: TAKE 1/2 TABLET BY MOUTH EVERY 8 HOURS NEEDED FOR ANXIETY (1/2 TAB UP TO THREE TIMES DAILY). * Telephone Encounter - Alena George RP - 01/27/2025 6:19 AM EDT I have reviewed the patient’s controlled substance dispensing history in the Prescription Drug Monitoring Program in compliance with the [facility] regulations before prescribing a controlled substance. PDMP checked on 01/27/2025. Pending Prescriptions: Disp Refills LORazepam 1 MG Oral Tablet (Ativan) 23 Tab*0 Sig: TAKE 1/2 TABLET BY MOUTH EVERY 8 HOURS NEEDED FOR ANXIETY (1/2 TAB UP TO THREE TIMES DAILY). Last Visit: 11/29/24 Next Visit: 02/27/2025 Date medication was last filled: 08/24 Date medication is due for refill: 09/09/24 Pharmacy: [facility] [address] [address] [place] Is this request for a controlled substance? Yes and Urine Drug Screen Not completed Toxicology results: No results found. However, due to the size of the patient record, not all encounters were searched.Please check Results Review for a complete set of results. Please approve if appropriate. Thank you, Alena George, PharmD. Clinical Pharmacist [facility]acy Services ([facility]) 01/27/2025, 6:19 AM documented in this encounter Plan of Treatment Upcoming Encounters Date Type Department Care Team (Late st Contact Info) Description 02/08/2025 11:30 AM EDT Office Visit Ophthalmology, [facility] [address] [place] [address] Roe Falcon DO [address] [place] [address] 02/27/2025 11:00 AM EDT Office Visit Family Practice [facility] [address] [facility] [place] [address] Janice Freeman PA-C [address] [facility] [place] [address] Scheduled Procedures Name Priority Associated Diagnoses Date/Ti [...] 09/29/2023, Additional history exists HbA1c 05/29/2025 11/29/2024, 03/1 01/2024, 07/29/2023, Additional history exists Diabetic Foot Exam 08/01/2025 08/01/2024, 0 07/29/2023, 07/22/2022, Additional history exists Albumin/Creatinine Ratio 10/01/2025 024, 01/15/2023, 11/28/2022, Additional history exists Colonoscopy 11/29/2025 11/29/2020, 11/16, 11/07/2014, Additional history exists TSH 11/29/2025 11/29/2024, 01/14, 01/15/2023, Additional history exists GFR 01/30/2026 01/30/2025, 01/14, 01/15/2023, Additional history exists DTap/Tdap Vaccines (3 - Td or Tdap) 07/22/2032 07/22/2022, 03/18/2009, 03/29/1999 RETIRED - COLONOSCOPY-EVERY 5 YRS AGES 18-100 Discontinued 11/29/2020, 11/29/2020, 11/07/2014, Additional history exists VITAMIN D LEVEL ONCE IN A LIFETIME-USE SMARTSET# [id number] Completed 01/15/2023, 07/18/2021, 03/01/2021, Additional history exists [...] this encounter Medical Devices Implanted Type Area Educational Assistant Device Identifier Shelf Expiration Date Model / Serial / Lot Sofport Intraocular Posterior Chamber Lens Implanted:Qty: 1 on 02/02/2017 by Gabriel Acosta MD at OR [facility] Right: Eye [employer] 05/15/2021 [id number] / [id number] / [id number] Lens Intraoc 29.0 - [id number] - [id number] Implanted:Qty: 1 on 02/09/2017 by Gabriel Acosta MD at OR [facility] Left: Eye [employer] 12/16/2018 [id number] / [id number] / [id number] Clip Quick 2.8mm 230cm - [id number] Implanted:Qty: 2 on 11/29/2020 by Sharon Benitez MD at ENDOSCOPY [facility] [employer] 11/15/2022 [id number] / / documented as of this encounter Visit Diagnoses Diagnosis RACHEL (generalized anxiety disorder) Generalized anxiety disorder documented in this encounter Advance Directives Documents on File Type Date Recorded Patient Furnace Combustion Analyst Expl anation Power of Tube Builder 06/08/2020 POWER OF A TTORNEY Power of Tube Builder 04/19/2018 POWER OF A TTORNEY DURABLE HEALTH POWER OF MINER PLACER * No Code (Latest Code Status on File) Date Activated Date Inactivated Comments 01/30/2025 8:36 PM This order ref lects the patients wishes and were consensually agreed upon. Question Answer Comments Discussion of Advance Direct esequiel occurred with: Power of Tube Builder/Patient Furnace Combustion Analyst Does the patient have a Living Will? Yes, in monica rt and reviewed as current Does the patient have Health Care Power of Tube Builder? Yes, in chart and reviewed as current [...] and were consensually agreed upon. Care Teams Asparagus Buncher Relationship Specialty Start Date End Date Lydia February DONY Santos [address] [facility] [place] [address] PCP - General Physician Restaurant Floor Manager 05/25/24 documented as of this encounter
--- OUTSIDE RECORDS SUMMARY | 2025-03-08 13:52 | External Medical Summary | Summary of Care ---
Author Name Unknown Organization [facility] Address [address] [place] [address] Phone [phone] Care Team Providers Care Facilities Director Name Role Phone Janice Freeman PA-C Primary Care Provider [phone] Reason for Visit * Reason Comments eRx-Medication Refill Encounter Details Date Type Department Care Team (Late st Contact Info) Description 01/30/2025 Refill [facility], [facility] [address] [place] [address] [place] [phone] Janice Freeman PA-C [address] [place] [address] RACHEL (generalized anxiety disorder) Allergies Active Allergy [...] hemoglobin A1c goal of less than 7.0% ([facility]) USE STRIP TO CHECK GLUCOSE UP TO TWICE DAILY DIRECTED 200 Strip 3 06/14/20 24 Suspended metFORMIN HCl ER 500 MG Oral Tablet Extended Release 24 Hour (Glucophage XR)Indications:Typ e 2 diabetes mellitus with hemoglobin A1c goal of less than 7.0% ([facility]) TAKE 2 TABLETS BY MOUTH TWICE DAILY [...] mRNA, LNP-s, No Pre serve, 2-Dose Series (eSh[employer]) 12/26/2021,2021,05/24/2021 Covid-19, Mrna, Lnp-s, Pf, B ivalent, [...] encounter Miscellaneous Notes * Telephone Encounter - Madelaine Brewer [facility] - 01/31/2025 11:45 AM EDTRefused Prescriptions: Disp Refills LORazepam 1 MG Oral Tablet (Ativan) 23 Tab*0 Sig: TAKE 1/2 (ONE-HALF) TABLET BY MOUTH EVERY 8 HOURS NEEDED FOR ANXIETYRefused By: MADELAINE BREWER for Refusal: Duplicate Request documented in this encounter Plan of Treatment Upcoming Encounters Date Type Department Care Team (Late st Contact Info) Description 02/08/2025 11:30 AM EDT Office Visit Ophthalmology, [facility] [address] [place] [address] Roe Falcon, [address] [place] [address] 02/27/2025 11:00 AM EDT Office Visit Family Practice [facility] [address] [facility] [place] [address] Janice Freeman PA-C [address] [facility] [place] [address] Scheduled Procedures Name Priority Associated Diagnoses Date/Ti [...] 10/03/2014, Additional history exists B-12 01/26/2025 01/27/2024, 03/12/2022, 02/01/2021, Additional history exists Diabetic Eye Exam 02/09/2025 02/10/2024, , 09/29/2023, Additional history exists HbA1c 05/29/2025 11/29/2024, 01/14, 07/29/2023, Additional history exists Diabetic Foot Exam 08/01/2025 08/01/2024, 0 07/29/2023, 07/22/2022, Additional history exists Albumin/Creatinine Ratio 10/01/20252 024, 01/15/2023, 11/28/2022, Additional history exists Colonoscopy 11/29/2025 11/29/2020, 11/16, 11/07/2014, Additional history exists TSH 11/29/2025 11/29/2024, 01/14, 01/15/2023, Additional history exists GFR 01/31/2026 01/31/2025, 01/14, 01/27/2024, Additional history exists DTap/Tdap Vaccines (3 - Td or Tdap) 07/22/2032 07/22/2022, 03/18/2009, 03/29/1999 RETIRED - COLONOSCOPY-EVERY 5 YRS AGES 18-100 Discontinued 11/29/2020, 11/29/2020, 11/07/2014, Additional history exists VITAMIN D LEVEL ONCE IN A LIFETIME-USE SMARTSET# [id number] Completed 01/15/2023, 07/18/2021, 03/01/2021, Additional history exists [...] encounter Medical Devices Implanted Type Area Senior Integration Developer Device Identifier Shelf Expiration Date Model / Serial / Lot Sofport Intraocular Posterior Chamber Lens Implanted:Qty: 1 on 02/02/2017 by Gabriel Acosta MD at OR [facility] Right: Eye [employer] 05/15/2021 [id number] / [id number] / [id number] Lens Intraoc 29.0 - [id number] - [id number] Implanted:Qty: 1 on 02/09/2017 by Gabriel Acosta MD at OR [facility] Left: Eye [employer] 12/16/2018 [id number] / [id number] / [id number] Clip Quick 2.8mm 230cm - [id number] Implanted:Qty: 2 on 11/29/2020 by Sharon Benitez MD at ENDOSCOPY [facility] [employer] 11/15/2022 [id number] / / documented as of this encounter Visit Diagnoses Diagnosis RACHEL (generalized anxiety disorder) Generalized anxiety disorder documented in this encounter Advance Directives Documents on File Type Date Recorded Patient Dining Room Server Expl anation Power of Rail Washer 06/08/2020 POWER OF A TTORNEY Power of Rail Washer 04/19/2018 POWER OF A TTORNEY DURABLE HEALTH POWER OF ARABIC PROFESSOR * No Code (Latest Code Status on File) Date Activated Date Inactivated Comments 01/30/2025 8:36 PM This order ref lects the patients wishes and were consensually agreed upon. Question Answer Comments Discussion of Advance Direct esequiel occurred with: Power of Rail Washer/Patient Dining Room Server Does the patient have a Living Will? Yes, in monica rt and reviewed as current Does the patient have Health Care Power of Rail Washer? Yes, in chart and reviewed as current [...] and were consensually agreed upon. Care Teams Facilities Director Relationship Specialty Start Date End Date LydiaFebruary Danielle, SHANC [address] [place], [place] [address] [address] PCP - General Physician Batteryman 05/25/24 documented as of this encounter
--- OUTSIDE RECORDS SUMMARY | 2025-03-08 13:52 | External Medical Summary ---
Author Name Unknown Address Unknown Organization [id number]:LABORATORY [facility] [place] - [address] [facility] [address] Laboratory Report Ordering Provider Test Date Status KEVINCHIKISSWAPNA 01/31/2025 07:10:00 Final Observation Date Value Abnormality Reference (Units ) Status WBC, Total 01/31/2025 07:10:00 7.16 4.00-10.80 (K/uL) Final RBC 01/31/2025 07:10:00 3.96 3.85-5.15 (M/uL) Final Hemoglobin 01/31/2025 07:10:00 11.0 Below low normal 12.0-15.3 (g/dL) Final HCT 01/31/2025 07:10:00 35.9 Below low normal 36.0-45.2 (%) Final MCV 01/31/2025 07:10:00 90.7 81.5-97.5 (fL) Final MCH 01/31/2025 07:10:00 27.8 27.0-34.0 (pg) Final MCHC 01/31/2025 07:10:00 30.6 32.0-36.0 (g/dL) Final RDW 01/31/2025 07:10:00 14.2 11.5-15.5 (%) Final Platelets 01/31/2025 07:10:00 181 140-400 (K/uL) Final MPV 01/31/2025 07:10:00 9.6 6.6-11.1 (fL) Final Nucleated erythrocytes/100 leukocytes [Ratio] in Blood by Automated count 01/31/2025 07:10:00 0 <=0 (/100 WBCs) Final Performing Location LABORATORY [facility] - [address] [place] [address]
--- OUTSIDE RECORDS SUMMARY | 2025-03-08 13:53 | External Medical Summary ---
Author Name Unknown Address Unknown Organization [id number]:LABORATORY [facility] [place] - [address] [facility] [address] Laboratory Report Ordering Provider Test Date Status BENJAMIN CORONA 01/30/2025 17:09:00 Final Observation Date Value Abnormality Reference (Units ) Status WBC, Total 01/30/2025 17:09:00 12.73 Above high normal 4.00-10.80 (K/uL) Final RBC 01/30/2025 17:09:00 4.45 3.85-5.15 (M/uL) Final Hemoglobin 01/30/2025 17:09:00 12.5 12.0-15.3 (g/dL) Final HCT 01/30/2025 17:09:00 40.4 36.0-45.2 (%) Final MCV 01/30/2025 17:09:00 90.8 81.5-97.5 (fL) Final MCH 01/30/2025 17:09:00 28.1 27.0-34.0 (pg) Final MCHC 01/30/2025 17:09:00 30.9 32.0-36.0 (g/dL) Final RDW 01/30/2025 17:09:00 14.3 11.5-15.5 (%) Final Platelets 01/30/2025 17:09:00 262 140-400 (K/uL) Final MPV 01/30/2025 17:09:00 9.8 6.6-11.1 (fL) Final Nucleated erythrocytes/100 leukocytes [Ratio] in Blood by Automated count 01/30/2025 17:09:00 0 <=0 (/100 WBCs) Final Performing Location LABORATORY [facility] - [address] [facility] [address]
--- OUTSIDE RECORDS SUMMARY | 2025-03-08 13:53 | External Medical Summary ---
Author Name Unknown Address Unknown Organization [id number]:LABORATORY [facility] - [address] [place] [address] Laboratory Report Ordering Provider Test Date Status BENJAMIN CORONA 01/30/2025 17:09:00 Final Observation Date Value Abnormality Reference (Units ) Status ABO 01/30/2025 17:09:00 O Final RH 01/30/2025 17:09:00 Positive Final Performing Location LABORATORY [facility] - [address] [place] [address]
--- OUTSIDE RECORDS SUMMARY | 2025-03-08 13:53 | External Medical Summary ---
Author Name Unknown Address Unknown Organization K01:LABORATORY [facility] [place] - [address] [place] [address] Laboratory Report Ordering Provider Test Date Status BENJAMIN CORONA 01/30/2025 17:09:00 Final Warfarin Therapy
INR: 2 .0-3.0 conventional anticoagulation
INR: 2.5- 3.5 high intensity anticoagulation Observation Date Value Abnormality Reference (Units ) Status PT 01/30/2025 17:09:00 13.1 11.6-15.2 (seconds) Final INR 01/30/2025 17:09:00 1.0 0.8-1.2 Final Performing Location LABORATORY [facility] [place] - [address] [place] [address]
--- OUTSIDE RECORDS SUMMARY | 2025-03-08 13:53 | External Medical Summary ---
Author Name Unknown Address Unknown Organization K01:LABORATORY [facility] [place] - [address] [facility] [address] Laboratory Report Ordering Provider Test Date Status BENJAMIN CORONA 01/30/2025 17:09:00 Final Anticoagulation may affect t esting. Refer to [facility] Test Catalog for a list of effects. Observation Date Value Abnormality Reference (Units ) Status aPTT panel - Platelet poor plasma 01/30/2025 17:09:00 24 21-38 (seconds) Final Performing Location LABORATORY [facility] - [address] [place] [address]
--- OUTSIDE RECORDS SUMMARY | 2025-03-08 13:53 | External Medical Summary ---
Author Name Unknown Address Unknown Organization K01:LABORATORY [facility] [place] - [address] [place] [address] Laboratory Report Ordering Provider Test Date Status BENJAMIN CORONA 01/30/2025 17:09:00 Final Observation Date Value Abnormality Reference (Units ) Status BUN 01/30/2025 17:09:00 19 6-20 (mg/dL) Final Creatinine 01/30/2025 17:09:00 0.9 0.5-1.0 (mg/dL) Final Glomerular filtration rate/1.73 sq M.predicted [Volume Rate/Area] in Serum, Plasma or Blood by Creatinine-based formula (CKD-EPI) 01/30/2025 17:09:00 68 >=60 (mL/min) Final eGFR is calculated based on the CKD-EPI 2020 equation. Sodium 01/30/2025 17:09:00 141 135-146 (m mol/L) Final Potassium 01/30/2025 17:09:00 4.7 3.5-5.1 (m mol/L) Final Cl 01/30/2025 17:09:00 105 98-107 (mm ol/L) Final CO2 01/30/2025 17:09:00 23 22-32 (mmo l/L) Final Anion gap 01/30/2025 17:09:00 13 7-15 (mmol /L) Final Glucose 01/30/2025 17:09:00 96 70-120 (mg /dL) Final Calcium 01/30/2025 17:09:00 8.6 8.4-10.2 ( mg/dL) Final Performing Location LABORATORY [facility] [place] - [address] [place] [address]
--- OUTSIDE RECORDS SUMMARY | 2025-03-08 13:53 | External Medical Summary ---
Author Name Unknown Address Unknown Organization K01:LABORATORY [facility] [place] - [address] [place] [address] Laboratory Report Ordering Provider Test Date Status CHLOEBENJAMIN 01/30/2025 17:09:00 Final Observation Date Value Abnormality Reference (Units ) Status AST (Aspartate aminotransferase) 01/30/2025 17:09:00 28 10-35 (U/L) Final Results may be falsely eleva earlene due to hemolysis. Performing Location LABORATORY [facility] [place] - [address] [place] [address]
--- OUTSIDE RECORDS SUMMARY | 2025-03-08 13:53 | External Medical Summary ---
Author Name Unknown Address Unknown Organization K01:LABORATORY [facility] [place] - [address] [facility] [address] Laboratory Report Ordering Provider Test Date Status BENJAMIN CORONA 01/30/2025 17:09:00 Final Observation Date Value Abnormality Reference (Units ) Status SYNC LEUKOCYTES IN BLOOD BY AUTOMATED COUNT 01/30/2025 17:09:00 12.73 Above high normal 4.00-10.80 (K/uL) Final Segs 01/30/2025 17:09:00 78.2 Above high normal 40.0-75.0 (%) Final Lymphs % 01/30/2025 17:09:00 13.2 Below low normal 18.0-42.0 (%) Final Monos 01/30/2025 17:09:00 6.9 1.0-11.0 (%) Final Eosinophils 01/30/2025 17:09:00 0.8 0.0-6.0 (%) Final Basos 01/30/2025 17:09:00 0.5 0.0-2.0 (%) Final Immature Granulocyte, Percent 01/30/2025 17:09:00 0.4 0.0-2.0 (%) Final Absolute Segs 01/30/2025 17:09:00 9.96 Above high normal 1.80-7.70 (K/uL) Final Lymphs, absolute 01/30/2025 17:09:00 1.68 1.00-4.80 (K/ul) Final Monos, Abs 01/30/2025 17:09:00 0.88 0.00-1.10 (K/uL) Final Eos, Abs 01/30/2025 17:09:00 0.10 0.00-0.70 (K/uL) Final Basos, Abs 01/30/2025 17:09:00 0.06 0.00-0.20 (K/uL) Final Immature Granulocytes, Number 01/30/2025 17:09:00 0.05 0.00-0.20 (K/uL) Final Performing Location LABORATORY [facility] - [facility] [address] [facility] [address]
--- OUTSIDE RECORDS SUMMARY | 2025-03-08 13:53 | External Medical Summary ---
Author Name Unknown Address Unknown Organization K01:LABORATORY [facility] [place] - [address] [facility] [address] Laboratory Report Ordering Provider Test Date Status BENJAMIN CORONA 01/30/2025 17:09:00 Final Observation Date Value Abnormality Reference (Units ) Status Lactic Acid 01/30/2025 17:09:00 1.3 0.4-2.0 (mmol/L) Final Performing Location LABORATORY C - [address] [place] [address]
[2025-03-08] MEDS ORDERED: POLYETHYLENE (MIRALAX) 17 GM PACK PO PRN (14:09)
[2025-03-08] MEDS ORDERED: GLUCOSE 40% GEL 15 GM TUBE PO PRN (14:09)
[2025-03-08] MEDS ORDERED: GLUCAGON FOR INJ 1 MG VIAL SQ PRN (14:09)
[2025-03-08] MEDS ORDERED: DEXTROSE 50% 50 ML SYRINGE IV PRN (14:09)
[2025-03-08] MEDS ORDERED: CARBOHYDRATES FOR HYPOGLYCEMIA PO PRN (14:09)
[2025-03-08] MEDS ORDERED: LORazepam 0.5 MG TAB PO PRN (14:09)
[2025-03-08] MEDS ORDERED: GLUCOSE 10 TAB/TUBE PO PRN (14:09)
[2025-03-08] MEDS: INSULIN ASPART PER UNIT CHARGE SC SCH (14:31)
[2025-03-08] MEDS: FLUoxetine HCL 20 MG CAP PO SCH (15:54)
[2025-03-08] MEDS: CLOPIDOGREL BISULFATE 75 MG TAB PO SCH (15:54)
[2025-03-08] MEDS: ATORVASTATIN 40 MG TAB PO SCH (15:54)
[2025-03-08] MEDS: buPROPion XL 300 MG TABCR PO SCH (15:54)
[2025-03-08] MEDS: ENOXAPARIN INJ 40 MG/0.4 ML SYR SQ SCH (15:55)
[2025-03-08 20:51] LABS: Appearance Urine Clear (Clear); Bacteria Urine Automated None Seen (None Seen); Bilirubin Urine Negative (Negative); Blood Urine Negative (Negative); Cast Urine Automated 0-2 /lpf (0-2); Color Urine Yellow; Epithelial Cell Urine Auto 0-2 /hpf (0-2); Glucose Urine UA Negative (Negative); Ketones Urine 1+ (Negative); Leukocyte Esterase Urine 1+ (Negative); Nitrite Urine Negative (Negative); Protein Urine Negative (Negative); RBC Urine Automated 0-2 /hpf (0-2); Specific Gravity Urine 1.018 (1.000-1.030); Urobilinogen Urine Negative (Negative)
[2025-03-08] MEDS: MIRTAZAPINE TAB 15 MG TAB PO SCH (20:52)
[2025-03-08] MEDS: GABAPENTIN 300 MG CAP PO SCH (20:52)
[2025-03-09] MEDS: LEVOTHYROXINE SODIUM 125 MCG TABLET PO SCH (06:22)
[2025-03-09 07:18] LABS: BUN Creatinine Ratio 23.8 (10-20); Calcium 7.8 mg/dl (8.6-10.3); Creatinine Clr Calc Pharmacy 58.2 ml/min; Potassium 3.6 mmol/L (3.5-5.1)
[2025-03-09 07:29] LABS: Hematocrit (blood only) 35.6 % (37.0-47.0); Hemoglobin 11.3 g/dl (12.0-16.0); Mean Corpuscular Hemoglobin 28.3 pg (25.0-34.0); Mean Corpuscular Hgb Conc 31.7 g/dL (32.0-36.0); Mean Platelet Volume 9.8 fL (9.4-12.4); Platelet Count 179 K/uL (130-400); RDW Coefficient of Variation 14.6 % (11.5-14.5); RDW Standard Deviation 47.1 fL (36.4-46.3); White Blood Count 5.64 K/ul (4.8-10.8)
[2025-03-09] MEDS: CHOLECALCIFEROL 25 MCG (1000 UNITS) TAB PO SCH (07:40)
[2025-03-09] MEDS ORDERED: LORazepam 0.5 MG TAB PO PRN (08:01)
--- NOTE | 2025-03-09 17:50 | Hospitalist Progress Note ---
Date of Service March 09, 2025 Assessment & Plan (1) Fall: (2) Mild vascular neurocognitive disorder: (3) Diabetes: (4) HTN (hypertension): (5) Hyperlipidemia: (6) Hypothyroidism: (7) Depression: (8) Anxiety: Plan 79 year old female with PMH significant for CVA (2017), expressive aphasia, memory impairment, mild vascular neurocognitive disorder, DMII, HTN, HLD, hypothyroidism, osteoporosis, MDD, anxiety, and macular degeneration who presented to the ED today after having a fall at home yesterday. Fall -Likely mechanical in nature due to sister's history of carpet being messed up and walker tipped over -Head CT without acute findings - SAH from fall in January is resolved, old infarct is unchanged Plan: -PT and OT consults -Case management consult for SNF placement at discharge History of CVA Mild vascular neurocognitive disorder Memory impairment -Continue plavix per home dosing -Patient follows with Neurology and was seen on 03/06 for follow up after her fall in January and for memory issues -Neurology does not feel that patient is safe to live at home alone -Patient's sister is POA and agreeable to SNF placement -Scheduled MRI on 03/28 and follow up appointment on 04/17 with Neurology for ongoing concerns about memory -Scheduled appointment on 03/20 with Ortho for cast removal from previous fall DMII -On metformin at home - holding while inpt -SSI while inpatient HTN -Not currently on antihypertensives HLD -Continue statin per home dosing Hypothyroidism -Continue levothyroxine per home dosing Depression Anxiety -Continue wellbutrin, fluoxetine -decrease mirtazapine to 7.5mg at beddtime for sedating properties -decrease ativan to 0.5mg bid, decrease every few days, has increased mortality in dementia I spent a total of 45 minutes in direct patient care, including [id number] time with the patient and/or family, reviewing medical records, ordering and re viewing diagnostic tests, and coordinating care with other healthcare providers. This time includes: history taking, physical examination, medical decision making, counseling, ECG interpretation, imaging interpretation, lab interpretation, orders, and education, excluding time spent in the performance of separately billed services. Admission and Anticipated Discharge Date Admission Date: March 08, 2025 Subjective Patient seen and examined at bedside. Sister noted at bedside as well. Sister discusses inability to take care of patient any further at home. States that dementia is becoming advanced, patient has low appetite, patient has frequent agitation episodes. States she is getting weaker as well. Review of Systems Review of Systems: -unable to answer ROS due to mental stat us Physical Exam Physical Exam: Gen: A&O 1 NAD HEENT: NCAT, EOMI, not icteric. External ears normal. No rhinorrhea. Moist mucous membranes. Neck: Supple, full range of motion, no observable masses, No meningeal sign. Lungs: No Respiratory distress. CV: RRR, no edema. Abdomen: Soft, nondistended, No rebound tenderness. MSK: No joint swelling, no redness. Skin: No rashes, petechiae, lesions. Normal color per patient. Neuro: Normal Gait, Grossly intact. Results & Data Results & Data Vital Signs (Past 12 Hours) Vital Signs Temp Pulse Resp BP BP Pulse Ox O2 Del Method 03/09/25 13:43 36.6 C 69 18 100/64 96 Room Air 03/09/25 10:00 36.6 C 62 18 132/77 97 Room Air 03/09/25 07:15 36.6 C 56 L 16 133/83 97 Room Air Laboratory Results -personally reviewed, hgb of 11.3 slightly lower than baseline, CK downtrended Medications Administered Atorvastatin Calcium (Atorvastatin 40 Mg Tab) 40 mg PO [facility] Stop: 04/07/25 14:08 Last Admin: 03/09/25 07:41 Dose: 40 mg Documented By: Admin: 03/08/25 15:54 Dose: 40 mg Documented By: KYLEIGH Bupropion HCl (Bupropion Xl 300 Mg Tabcr) 300 mg PO [facility] Stop: 04/07/25 14:08 Last Admin: 03/09/25 07:40 Dose: 300 mg Documented By: Admin: 03/08/25 15:54 Dose: 300 mg Documented By: KYLEIGH Clopidogrel Bisulfate (Clopidogrel Bisulfate 75 Mg Tab) 75 mg PO [facility] Stop: 04/07/25 14:08 Last Admin: 03/09/25 07:40 Dose: 75 mg Documented By: Admin: 03/08/25 15:54 Dose: 75 mg Documented By: KYLEIGH Enoxaparin Sodium (Enoxaparin Inj 40 Mg/0.4 Ml Syr) 40 mg SQ Q24H [facility] Stop: 04/07/25 14:08 Last Admin: 03/09/25 13:11 Dose: 40 mg Documented By: Admin: 03/08/25 15:55 Dose: 40 mg Documented By: KYLEIGH Fluoxetine HCl (Fluoxetine Hcl 20 Mg Cap) 40 mg PO DAILY [facility] Stop: 04/07/25 14:08 Last Admin: 03/09/25 07:40 Dose: 40 mg Documented By: Admin: 03/08/25 15:54 Dose: 40 mg Documented By: KYLEIGH Gabapentin (Gabapentin 300 Mg Cap) 300 mg PO HS [facility] Stop: 04/07/25 20:59 Last Admin: 03/08/25 20:52 Dose: 300 mg Documented By: SUE Insulin Aspart (Insulin Aspart Per Unit Charge) 0 units SC ACHS [facility] Stop: 04/07/25 14:08 Last Admin: 03/09/25 17:19 Dose: Not Given Documented By: Admin: 03/09/25 13:05 Dose: 2 units Documented By: TOBI Co-signed By: RASHMI Admin: 03/09/25 07:45 Dose: Not Given Documented By: Admin: 03/08/25 20:53 Dose: Not Given Documented By: Admin: 03/08/25 17:55 Dose: Not Given Documented By: Admin: 03/08/25 14:31 Dose: Not Given Documented By: JOSH Levothyroxine Sodium (Levothyroxine Sodium 125 Mcg Tablet) 125 mcg PO DAILYBB [facility] Stop: 04/08/25 06:29 Last Admin: 03/09/25 06:22 Dose: 125 mcg Documented By: SUE Vitamin D (Cholecalciferol 25 Mcg (1000 Units) Tab) 25 mcg PO DAILY [facility] Stop: 04/08/25 08:59 Last Admin: 03/09/25 07:40 Dose: 25 mcg Documented By: TOBI
[2025-03-09] MEDS: MIRTAZAPINE TAB 15 MG TAB PO SCH (20:01)
[2025-03-10] MEDS: ACETAMINOPHEN 325 MG TAB PO PRN (14:31)
--- NOTE | 2025-03-10 16:47 | Hospitalist Progress Note ---
Date of Service March 10, 2025 Assessment & Plan (1) Fall: (2) Mild vascular neurocognitive disorder: (3) Diabetes: (4) HTN (hypertension): (5) Hyperlipidemia: (6) Hypothyroidism: (7) Depression: (8) Anxiety: Plan 79 year old female with PMH significant for CVA (2017), expressive aphasia, memory impairment, mild vascular neurocognitive disorder, DMII, HTN, HLD, hypothyroidism, osteoporosis, MDD, anxiety, and macular degeneration who presented to the ED today after having a fall at home yesterday. Fall -Likely mechanical in nature due to sister's history of carpet being messed up and walker tipped over -Head CT without acute findings - SAH from fall in January is resolved, old infarct is unchanged Plan: -PT and OT consults -Case management consult for SNF placement at discharge History of CVA Mild vascular neurocognitive disorder Memory impairment -Continue plavix per home dosing -Patient follows with Neurology and was seen on 03/06 for follow up after her fall in January and for memory issues -Neurology does not feel that patient is safe to live at home alone -Patient's sister is POA and agreeable to SNF placement -Scheduled MRI on 03/28 and follow up appointment on 04/17 with Neurology for ongoing concerns about memory -Scheduled appointment on 03/20 with Ortho for cast removal from previous fall DMII -On metformin at home - holding while inpt -SSI while inpatient HTN -Not currently on antihypertensives HLD -Continue statin per home dosing Hypothyroidism -Continue levothyroxine per home dosing Depression Anxiety -Continue wellbutrin, fluoxetine -continue mirtazapine to 7.5mg at beddtime for sedating properties -continue ativan 0.5mg bid, decrease every few days, has increased mortality in dementia I spent a total of 40 minutes in direct patient care, including [id number] time with the patient and/or family, reviewing medical records, ordering and reviewing diagnostic tests, and coordinating care with other healthcare providers. This time includes: history taking, physical examination, medical decision making, counseling, ECG interpretation, imaging interpretation, lab interpretation, orders, and education, excluding time spent in the performance of separately billed services. Admission and Anticipated Discharge Date Admission Date: March 08, 2025 Subjective Patient doing good today, sleeping comfortably in chair, denies concerns at this time. Review of Systems Review of Systems: -unable to answer ROS due to mental stat us Physical Exam Physical Exam: Gen: A&O 1 NAD HEENT: NCAT, EOMI, not icteric. External ears normal. No rhinorrhea. Moist mucous membranes. Neck: Supple, full range of motion, no observable masses, No meningeal sign. Lungs: No Respiratory distress. CV: RRR, no edema. Abdomen: Soft, nondistended, No rebound tenderness. MSK: No joint swelling, no redness. Skin: No rashes, petechiae, lesions. Normal color per patient. Neuro: Normal Gait, Grossly intact. Results & Data Results & Data Vital Signs (Past 12 Hours) Vital Signs Temp Pulse Resp BP Pulse Ox O2 Del Method 03/10/25 14:52 36.9 C 68 16 132/70 98 Room Air 03/10/25 13:21 36.6 C 68 16 110/70 99 Room Air 03/10/25 08:08 36.7 C 58 L 16 134/81 95 Room Air Medications Administered Acetaminophen (Acetaminophen 325 Mg Tab) 650 mg PO Q4H PRN PRN Reason: pain/fever Stop: 04/07/25 14:08 Last Admin: 03/10/25 14:31 Dose: 650 mg Documented By: SHANTA Atorvastatin Calcium (Atorvastatin 40 Mg Tab) 40 mg PO [facility] Stop: 04/07/25 14:08 Last Admin: 03/10/25 08:48 Dose: 40 mg Documented By: Admin: 03/09/25 07:41 Dose: 40 mg Documented By: Admin: 03/08/25 15:54 Dose: 40 mg Documented By: KYLEIGH Bupropion HCl (Bupropion Xl 300 Mg Tabcr) 300 mg PO [facility] Stop: 04/07/25 14:08 Last Admin: 03/10/25 08:48 Dose: 300 mg Documented By: Admin: 03/09/25 07:40 Dose: 300 mg Documented By: Admin: 03/08/25 15:54 Dose: 300 mg Documented By: KYLEIGH Clopidogrel Bisulfate (Clopidogrel Bisulfate 75 Mg Tab) 75 mg PO [facility] Stop: 04/07/25 14:08 Last Admin: 03/10/25 08:48 Dose: 75 mg Documented By: Admin: 03/09/25 07:40 Dose: 75 mg Documented By: Admin: 03/08/25 15:54 Dose: 75 mg Documented By: KYLEIGH Enoxaparin Sodium (Enoxaparin Inj 40 Mg/0.4 Ml Syr) 40 mg SQ Q24H [facility] Stop: 04/07/25 14:08 Last Admin: 03/10/25 14:31 Dose: 40 mg Documented By: Admin: 03/09/25 13:11 Dose: 40 mg Documented By: Admin: 03/08/25 15:55 Dose: 40 mg Documented By: KYLEIGH Fluoxetine HCl (Fluoxetine Hcl 20 Mg Cap) 40 mg PO DAILY [facility] Stop: 04/07/25 14:08 Last Admin: 03/10/25 08:48 Dose: 40 mg Documented By: Admin: 03/09/25 07:40 Dose: 40 mg Documented By: Admin: 03/08/25 15:54 Dose: 40 mg Documented By: KYLEIGH Gabapentin (Gabapentin 300 Mg Cap) 300 mg PO HS [facility] Stop: 04/07/25 20:59 Last Admin: 03/09/25 20:02 Dose: 300 mg Documented By: Admin: 03/08/25 20:52 Dose: 300 mg Documented By: SUE Insulin Aspart (Insulin Aspart Per Unit Charge) 0 units SC ACHS [facility] Stop: 04/07/25 14:08 Last Admin: 03/10/25 12:14 Dose: 2 units Documented By: SHANTA Co-signed By: SUE Admin: 03/10/25 08:52 Dose: 3 units Documented By: SHANTA Co-signed By: SUE Admin: 03/09/25 21:44 Dose: Not Given Documented By: TOYA Co-signed By: CRISTY Admin: 03/09/25 17:19 Dose: Not Given Documented By: Admin: 03/09/25 13:05 Dose: 2 units Documented By: TOBI Co-signed By: RASHMI Admin: 03/09/25 07:45 Dose: Not Given Documented By: Admin: 03/08/25 20:53 Dose: Not Given Documented By: Admin: 03/08/25 17:55 Dose: Not Given Documented By: Admin: 03/08/25 14:31 Dose: Not Given Documented By: ARS Levothyroxine Sodium (Levothyroxine Sodium 125 Mcg Tablet) 125 mcg PO DAILYBB [facility] Stop: 04/08/25 06:29 Last Admin: 03/10/25 06:35 Dose: 125 mcg Documented By: Admin: 03/09/25 06:22 Dose: 125 mcg Documented By: SUE Mirtazapine (Mirtazapine Tab 15 Mg Tab) 7.5 mg PO HS [facility] Stop: 04/08/25 20:59 Last Admin: 03/09/25 20:01 Dose: 7.5 mg Documented By: TOYA Vitamin D (Cholecalciferol 25 Mcg (1000 Units) Tab) 25 mcg PO DAILY [facility] Stop: 04/08/25 08:59 Last Admin: 03/10/25 08:48 Dose: 25 mcg Documented By: Admin: 03/09/25 07:40 Dose: 25 mcg Documented By: TOBI
[2025-03-11 06:35] LABS: Calcium 7.8 mg/dl (8.6-10.3); Creatinine Clr Calc Pharmacy 59.6 ml/min; Potassium 3.9 mmol/L (3.5-5.1)
--- NOTE | 2025-03-11 14:08 | Hospitalist Progress Note ---
Date of Service March 11, 2025 Assessment & Plan (1) Fall: (2) Mild vascular neurocognitive disorder: (3) Diabetes: (4) HTN (hypertension): (5) Hyperlipidemia: (6) Hypothyroidism: (7) Depression: (8) Anxiety: Plan 79 year old female with PMH significant for CVA (2017), expressive aphasia, memory impairment, mild vascular neurocognitive disorder, DMII, HTN, HLD, hypothyroidism, osteoporosis, MDD, anxiety, and macular degeneration who presented to the ED today after having a fall at home yesterday. Fall -Likely mechanical in nature due to sister's history of carpet being messed up and walker tipped over -Head CT without acute findings - SAH from fall in January is resolved, old infarct is unchanged Plan: -PT and OT consults -Case management consult for SNF placement at discharge History of CVA Mild vascular neurocognitive disorder Memory impairment -Continue plavix per home dosing -Patient follows with Neurology and was seen on 03/06 for follow up after her fall in January and for memory issues -Neurology does not feel that patient is safe to live at home alone -Patient's sister is POA and agreeable to SNF placement -Scheduled MRI on 03/28 and follow up appointment on 04/17 with Neurology for ongoing concerns about memory -Scheduled appointment on 03/20 with Ortho for cast removal from previous fall DMII -On metformin at home - holding while inpt -SSI while inpatient HTN -Not currently on antihypertensives HLD -Continue statin per home dosing Hypothyroidism -Continue levothyroxine per home dosing Depression Anxiety -Continue wellbutrin, fluoxetine -continue mirtazapine to 7.5mg at beddtime for sedating properties -continue ativan 0.5mg bid, decrease every few days, has increased mortality in dementia I spent a total of 35 minutes in direct patient care, including [id number] time with the patient and/or family, reviewing medical records, ordering and reviewing diagnostic tests, and coordinating care with other healthcare providers. This time includes: history taking, physical examination, medical decision making, counseling, ECG interpretation, imaging interpretation, lab interpretation, orders, and education, excluding time spent in the performance of separately billed services. Admission and Anticipated Discharge Date Admission Date: March 08, 2025 Subjective Patient doing well today. Sitting comfortably in the chair. Review of Systems Review of Systems: -unable to answer ROS due to mental stat us Physical Exam Physical Exam: Gen: A&O 1 NAD HEENT: NCAT, EOMI, not icteric. External ears normal. No rhinorrhea. Moist mucous membranes. Neck: Supple, full range of motion, no observable masses, No meningeal sign. Lungs: No Respiratory distress. CV: RRR, no edema. Abdomen: Soft, nondistended, No rebound tenderness. MSK: No joint swelling, no redness. Skin: No rashes, petechiae, lesions. Normal color per patient. Neuro: Normal Gait, Grossly intact. Results & Data Results & Data Vital Signs (Past 12 Hours) Vital Signs Temp Pulse Resp BP BP Pulse Ox O2 Del Method 03/11/25 07:39 36.7 C 60 16 134/77 95 Room Air 03/11/25 07:24 36.7 C 60 16 122/67 97 Room Air Laboratory Results -personally reviewed, creatinine stable Medications Administered Acetaminophen (Acetaminophen 325 Mg Tab) 650 mg PO Q4H PRN PRN Reason: pain/fever Stop: 04/07/25 14:08 Last Admin: 03/10/25 14:31 Dose: 650 mg Documented By: SHANTA Atorvastatin Calcium (Atorvastatin 40 Mg Tab) 40 mg PO [facility] Stop: 04/07/25 14:08 Last Admin: 03/11/25 08:01 Dose: 40 mg Documented By: Admin: 03/10/25 08:48 Dose: 40 mg Documented By: Admin: 03/09/25 07:41 Dose: 40 mg Documented By: Admin: 03/08/25 15:54 Dose: 40 mg Documented By: KYLEIGH Bupropion HCl (Bupropion Xl 300 Mg Tabcr) 300 mg PO [facility] Stop: 04/07/25 14:08 Last Admin: 03/11/25 08:02 Dose: 300 mg Documented By: Admin: 03/10/25 08:48 Dose: 300 mg Documented By: Admin: 03/09/25 07:40 Dose: 300 mg Documented By: Admin: 03/08/25 15:54 Dose: 300 mg Documented By: KYLEIGH Clopidogrel Bisulfate (Clopidogrel Bisulfate 75 Mg Tab) 75 mg PO [facility] Stop: 04/07/25 14:08 Last Admin: 03/11/25 08:01 Dose: 75 mg Documented By: Admin: 03/10/25 08:48 Dose: 75 mg Documented By: Admin: 03/09/25 07:40 Dose: 75 mg Documented By: Admin: 03/08/25 15:54 Dose: 75 mg Documented By: KYLEIGH Enoxaparin Sodium (Enoxaparin Inj 40 Mg/0.4 Ml Syr) 40 mg SQ Q24H [facility] Stop: 04/07/25 14:08 Last Admin: 03/10/25 14:31 Dose: 40 mg Documented By: Admin: 03/09/25 13:11 Dose: 40 mg Documented By: Admin: 03/08/25 15:55 Dose: 40 mg Documented By: KYLEIGH Fluoxetine HCl (Fluoxetine Hcl 20 Mg Cap) 40 mg PO DAILY [facility] Stop: 04/07/25 14:08 Last Admin: 03/11/25 08:02 Dose: 40 mg Documented By: Admin: 03/10/25 08:48 Dose: 40 mg Documented By: Admin: 03/09/25 07:40 Dose: 40 mg Documented By: Admin: 03/08/25 15:54 Dose: 40 mg Documented By: KYLEIGH Gabapentin (Gabapentin 300 Mg Cap) 300 mg PO HS [facility] Stop: 04/07/25 20:59 Last Admin: 03/10/25 20:21 Dose: 300 mg Documented By: Admin: 03/09/25 20:02 Dose: 300 mg Documented By: Admin: 03/08/25 20:52 Dose: 300 mg Documented By: SUE Insulin Aspart (Insulin Aspart Per Unit Charge) 0 units SC ACHS [facility] Stop: 04/07/25 14:08 Last Admin: 03/11/25 12:01 Dose: 3 units Documented By: SHANTA Co-signed By: RANGEL Admin: 03/11/25 08:00 Dose: 3 units Documented By: SHANTA Co-signed By: RAMILA Admin: 03/10/25 21:39 Dose: Not Given Documented By: Admin: 03/10/25 16:56 Dose: Not Given Documented By: Admin: 03/10/25 12:14 Dose: 2 units Documented By: SHANTA Co-signed By: SUE Admin: 03/10/25 08:52 Dose: 3 units Documented By: SHANTA Co-signed By: SUE Admin: 03/09/25 21:44 Dose: Not Given Documented By: TOYA Co-signed By: CRISTY Admin: 03/09/25 17:19 Dose: Not Given Documented By: Admin: 03/09/25 13:05 Dose: 2 units Documented By: TOBI Co-signed By: RASHMI Admin: 03/09/25 07:45 Dose: Not Given Documented By: Admin: 03/08/25 20:53 Dose: Not Given Documented By: Admin: 03/08/25 17:55 Dose: Not Given Documented By: Admin: 03/08/25 14:31 Dose: Not Given Documented By: JOSH Levothyroxine Sodium (Levothyroxine Sodium 125 Mcg Tablet) 125 mcg PO DAILYBB [facility] Stop: 04/08/25 06:29 Last Admin: 03/11/25 05:34 Dose: 125 mcg Documented By: Admin: 03/10/25 06:35 Dose: 125 mcg Documented By: Admin: 03/09/25 06:22 Dose: 125 mcg Documented By: SUE Mirtazapine (Mirtazapine Tab 15 Mg Tab) 7.5 mg PO HS [facility] Stop: 04/08/25 20:59 Last Admin: 03/10/25 20:21 Dose: 7.5 mg Documented By: Admin: 03/09/25 20:01 Dose: 7.5 mg Documented By: TOYA Vitamin D (Cholecalciferol 25 Mcg (1000 Units) Tab) 25 mcg PO DAILY [facility] Stop: 04/08/25 08:59 Last Admin: 03/11/25 08:01 Dose: 25 mcg Documented By: Admin: 03/10/25 08:48 Dose: 25 mcg Documented By: Admin: 03/09/25 07:40 Dose: 25 mcg Documented By: TOBI
[2025-03-11] MEDS ORDERED: LORazepam 0.5 MG TAB PO PRN (18:28)
--- NOTE | 2025-03-12 16:40 | Hospitalist Progress Note ---
Date of Service March 12, 2025 Assessment & Plan (1) Fall: (2) Mild vascular neurocognitive disorder: (3) Diabetes: (4) HTN (hypertension): (5) Hyperlipidemia: (6) Hypothyroidism: (7) Depression: (8) Anxiety: Plan 79 year old female with PMH significant for CVA (2017), expressive aphasia, memory impairment, mild vascular neurocognitive disorder, DMII, HTN, HLD, hypothyroidism, osteoporosis, MDD, anxiety, and macular degeneration who presented to the ED today after having a fall at home yesterday. Fall -Likely mechanical in nature due to sister's history of carpet being messed up and walker tipped over -Head CT without acute findings - SAH from fall in January is resolved, old infarct is unchanged Plan: -PT and OT consults -Case management consult for SNF placement at discharge -medically stable for discharge History of CVA Mild vascular neurocognitive disorder Memory impairment -Continue plavix per home dosing -Patient follows with Neurology and was seen on 03/06 for follow up after her fall in January and for memory issues -Neurology does not feel that patient is safe to live at home alone -Patient's sister is POA and agreeable to SNF placement -Scheduled MRI on 03/28 and follow up appointment on 04/17 with Neurology for ongoing concerns about memory -Scheduled appointment on 03/20 with Ortho for cast removal from previous fall DMII -On metformin at home - holding while inpt -SSI while inpatient HTN -Not currently on antihypertensives HLD -Continue statin per home dosing Hypothyroidism -Continue levothyroxine per home dosing Depression Anxiety -Continue wellbutrin, fluoxetine -continue mirtazapine to 7.5mg at beddtime for sedating properties -continue ativan 0.5mg daily, decrease every few days, has increased mortality in dementia I spent a total of 35 minutes in direct patient care, including [id number] time with the patient and/or family, reviewing medical records, ordering and reviewing diagnostic tests, and coordinating care with other healthcare providers. This time includes: history taking, physical examination, medical decision making, counseling, ECG interpretation, imaging interpretation, lab interpretation, orders, and education, excluding time spent in the performance of separately billed services. Admission and Anticipated Discharge Date Admission Date: March 08, 2025 Subjective Patient sitting comfortably in room, comfortable at this time. Review of Systems Review of Systems: -unable to answer ROS due to mental stat us Physical Exam Physical Exam: Gen: A&O 1 NAD HEENT: NCAT, EOMI, not icteric. External ears normal. No rhinorrhea. Moist mucous membranes. Neck: Supple, full range of motion, no observable masses, No meningeal sign. Lungs: No Respiratory distress. CV: RRR, no edema. Abdomen: Soft, nondistended, No rebound tenderness. MSK: No joint swelling, no redness. Skin: No rashes, petechiae, lesions. Normal color per patient. Neuro: Normal Gait, Grossly intact. Results & Data Results & Data Vital Signs (Past 12 Hours) Vital Signs Temp Pulse Resp BP Pulse Ox O2 Del Method 03/12/25 15:09 36.6 C 67 16 149/78 H 95 Room Air 03/12/25 08:59 36.6 C 76 18 110/60 Room Air Medications Administered Acetaminophen (Acetaminophen 325 Mg Tab) 650 mg PO Q4H PRN PRN Reason: pain/fever Stop: 04/07/25 14:08 Last Admin: 03/11/25 15:07 Dose: 650 mg Documented By: Admin: 03/10/25 14:31 Dose: 650 mg Documented By: SHANTA Atorvastatin Calcium (Atorvastatin 40 Mg Tab) 40 mg PO [facility] Stop: 04/07/25 14:08 Last Admin: 03/12/25 07:55 Dose: 40 mg Documented By: Admin: 03/11/25 08:01 Dose: 40 mg Documented By: Admin: 03/10/25 08:48 Dose: 40 mg Documented By: Admin: 03/09/25 07:41 Dose: 40 mg Documented By: Admin: 03/08/25 15:54 Dose: 40 mg Documented By: KYLEIGH Bupropion HCl (Bupropion Xl 300 Mg Tabcr) 300 mg PO [facility] Stop: 04/07/25 14:08 Last Admin: 03/12/25 07:56 Dose: 300 mg Documented By: Admin: 03/11/25 08:02 Dose: 300 mg Documented By: Admin: 03/10/25 08:48 Dose: 300 mg Documented By: Admin: 03/09/25 07:40 Dose: 300 mg Documented By: Admin: 03/08/25 15:54 Dose: 300 mg Documented By: KYLEIGH Clopidogrel Bisulfate (Clopidogrel Bisulfate 75 Mg Tab) 75 mg PO QAM [facility] Stop: 04/07/25 14:08 Last Admin: 03/12/25 07:56 Dose: 75 mg Documented By: Admin: 03/11/25 08:01 Dose: 75 mg Documented By: Admin: 03/10/25 08:48 Dose: 75 mg Documented By: Admin: 03/09/25 07:40 Dose: 75 mg Documented By: Admin: 03/08/25 15:54 Dose: 75 mg Documented By: KYLEIGH Enoxaparin Sodium (Enoxaparin Inj 40 Mg/0.4 Ml Syr) 40 mg SQ Q24H [facility] Stop: 04/07/25 14:08 Last Admin: 03/12/25 13:33 Dose: 40 mg Documented By: Admin: 03/11/25 14:12 Dose: 40 mg Documented By: Admin: 03/10/25 14:31 Dose: 40 mg Documented By: Admin: 03/09/25 13:11 Dose: 40 mg Documented By: Admin: 03/08/25 15:55 Dose: 40 mg Documented By: KYLEIGH Fluoxetine HCl (Fluoxetine Hcl 20 Mg Cap) 40 mg PO DAILY [facility] Stop: 04/07/25 14:08 Last Admin: 03/12/25 08:57 Dose: 40 mg Documented By: Admin: 03/11/25 08:02 Dose: 40 mg Documented By: Admin: 03/10/25 08:48 Dose: 40 mg Documented By: Admin: 03/09/25 07:40 Dose: 40 mg Documented By: Admin: 03/08/25 15:54 Dose: 40 mg Documented By: KYLEIGH Gabapentin (Gabapentin 300 Mg Cap) 300 mg PO HS [facility] Stop: 04/07/25 20:59 Last Admin: 03/11/25 19:57 Dose: 300 mg Documented By: Admin: 03/10/25 20:21 Dose: 300 mg Documented By: Admin: 03/09/25 20:02 Dose: 300 mg Documented By: Admin: 03/08/25 20:52 Dose: 300 mg Documented By: MPS Insulin Aspart (Insulin Aspart Per Unit Charge) 0 units SC ACHS [facility] Stop: 04/07/25 14:08 Last Admin: 03/12/25 12:13 Dose: Not Given Documented By: Admin: 03/12/25 08:13 Dose: 3 units Documented By: SHANTA Co-signed By: RANGEL Admin: 03/11/25 21:31 Dose: Not Given Documented By: Admin: 03/11/25 17:02 Dose: 3 units Documented By: SHANTA Co-signed By: HE Admin: 03/11/25 12:01 Dose: 3 units Documented By: SHANTA Co-signed By: RANGEL Admin: 03/11/25 08:00 Dose: 3 units Documented By: SHANTA Co-signed By: RAMILA Admin: 03/10/25 21:39 Dose: Not Given Documented By: Admin: 03/10/25 16:56 Dose: Not Given Documented By: Admin: 03/10/25 12:14 Dose: 2 units Documented By: SHANTA Co-signed By: SUE Admin: 03/10/25 08:52 Dose: 3 units Documented By: SHANTA Co-signed By: SUE Admin: 03/09/25 21:44 Dose: Not Given Documented By: TOYA Co-signed By: CRISTY Admin: 03/09/25 17:19 Dose: Not Given Documented By: Admin: 03/09/25 13:05 Dose: 2 units Documented By: TOBI Co-signed By: RASHMI Admin: 03/09/25 07:45 Dose: Not Given Documented By: Admin: 03/08/25 20:53 Dose: Not Given Documented By: Admin: 03/08/25 17:55 Dose: Not Given Documented By: Admin: 03/08/25 14:31 Dose: Not Given Documented By: ARS Levothyroxine Sodium (Levothyroxine Sodium 125 Mcg Tablet) 125 mcg PO DAILYBB [facility]IVAN Stop: 04/08/25 06:29 Last Admin: 03/12/25 05:29 Dose: 125 mcg Documented By: Admin: 03/11/25 05:34 Dose: 125 mcg Documented By: Admin: 03/10/25 06:35 Dose: 125 mcg Documented By: Admin: 03/09/25 06:22 Dose: 125 mcg Documented By: SUE Mirtazapine (Mirtazapine Tab 15 Mg Tab) 7.5 mg PO HS SIVAN Stop: 04/08/25 20:59 Last Admin: 03/11/25 19:57 Dose: 7.5 mg Documented By: Admin: 03/10/25 20:21 Dose: 7.5 mg Documented By: Admin: 03/09/25 20:01 Dose: 7.5 mg Documented By: TOYA Vitamin D (Cholecalciferol 25 Mcg (1000 Units) Tab) 25 mcg PO DAILY [facility] Stop: 04/08/25 08:59 Last Admin: 03/12/25 07:55 Dose: 25 mcg Documented By: Admin: 03/11/25 08:01 Dose: 25 mcg Documented By: Admin: 03/10/25 08:48 Dose: 25 mcg Documented By: Admin: 03/09/25 07:40 Dose: 25 mcg Documented By: TOBI
[2025-03-12] MEDS: GABAPENTIN 100 MG CAP PO SCH (19:22)
[2025-03-13] MEDS: NYSTATIN POWDER 15GM BTL EXT SCH (07:55)
--- NOTE | 2025-03-13 13:19 | Hospitalist Progress Note ---
Date of Service March 13, 2025 Assessment & Plan (1) Fall: (2) Mild vascular neurocognitive disorder: (3) Diabetes: (4) HTN (hypertension): (5) Hyperlipidemia: (6) Hypothyroidism: (7) Depression: (8) Anxiety: Plan 79 year old female with PMH significant for CVA (2017), expressive aphasia, memory impairment, mild vascular neurocognitive disorder, DMII, HTN, HLD, hypothyroidism, osteoporosis, MDD, anxiety, and macular degeneration who presented to the ED today after having a fall at home yesterday. Fall -Likely mechanical in nature due to sister's history of carpet being messed up and walker tipped over -Head CT without acute findings - SAH from fall in January is resolved, old infarct is unchanged Plan: -PT and OT consults -Case management consult for SNF placement at discharge -medically stable for discharge History of CVA Mild vascular neurocognitive disorder Memory impairment -Continue plavix per home dosing -Patient follows with Neurology and was seen on 03/06 for follow up after her fall in January and for memory issues -Neurology does not feel that patient is safe to live at home alone -Patient's sister is POA and agreeable to SNF placement -Scheduled MRI on 03/28 and follow up appointment on 04/17 with Neurology for ongoing concerns about memory -Scheduled appointment on 03/20 with Ortho for cast removal from previous fall DMII -On metformin at home - holding while inpt -SSI while inpatient HTN -Not currently on antihypertensives HLD -Continue statin per home dosing Hypothyroidism -Continue levothyroxine per home dosing Depression Anxiety -Continue wellbutrin, fluoxetine -continue mirtazapine to 7.5mg at beddtime for sedating properties -continue ativan 0.5mg daily, decrease every few days, has increased mortality in dementia I spent a total of 35 minutes in direct patient care, including [id number] time with the patient and/or family, reviewing medical records, ordering and reviewing diagnostic tests, and coordinating care with other healthcare providers. This time includes: history taking, physical examination, medical decision making, counseling, ECG interpretation, imaging interpretation, lab interpretation, orders, and education, excluding time spent in the performance of separately billed services. Admission and Anticipated Discharge Date Admission Date: March 08, 2025 Subjective Patient seen and examined at bedside. Family present as well. Patient doing well, walking around, no concerns at this time. Review of Systems Review of Systems: -unable to answer ROS due to mental stat us Physical Exam Physical Exam: Gen: A&O 1 NAD HEENT: NCAT, EOMI, not icteric. External ears normal. No rhinorrhea. Moist mucous membranes. Neck: Supple, full range of motion, no observable masses, No meningeal sign. Lungs: No Respiratory distress. CV: RRR, no edema. Abdomen: Soft, nondistended, No rebound tenderness. MSK: No joint swelling, no redness. Skin: No rashes, petechiae, lesions. Normal color per patient. Neuro: Normal Gait, Grossly intact. Results & Data Results & Data Vital Signs (Past 12 Hours) Vital Signs Temp Pulse Resp BP Pulse Ox O2 Del Method 03/13/25 07:06 36.7 C 56 L 16 121/67 96 Room Air Medications Administered Acetaminophen (Acetaminophen 325 Mg Tab) 650 mg PO Q4H PRN PRN Reason: pain/fever Stop: 04/07/25 14:08 Last Admin: 03/11/25 15:07 Dose: 650 mg Documented By: Admin: 03/10/25 14:31 Dose: 650 mg Documented By: SHANTA Atorvastatin Calcium (Atorvastatin 40 Mg Tab) 40 mg PO [facility] Stop: 04/07/25 14:08 Last Admin: 03/13/25 07:54 Dose: 40 mg Documented By: Admin: 03/12/25 07:55 Dose: 40 mg Documented By: Admin: 03/11/25 08:01 Dose: 40 mg Documented By: Admin: 03/10/25 08:48 Dose: 40 mg Documented By: Admin: 03/09/25 07:41 Dose: 40 mg Documented By: Admin: 03/08/25 15:54 Dose: 40 mg Documented By: KYLEGIH Bupropion HCl (Bupropion Xl 300 Mg Tabcr) 300 mg PO [facility] Stop: 04/07/25 14:08 Last Admin: 03/13/25 07:55 Dose: 300 mg Documented By: Admin: 03/12/25 07:56 Dose: 300 mg Documented By: Admin: 03/11/25 08:02 Dose: 300 mg Documented By: Admin: 03/10/25 08:48 Dose: 300 mg Documented By: Admin: 03/09/25 07:40 Dose: 300 mg Documented By: Admin: 03/08/25 15:54 Dose: 300 mg Documented By: KYLEIGH Clopidogrel Bisulfate (Clopidogrel Bisulfate 75 Mg Tab) 75 mg PO QAM [facility] Stop: 04/07/25 14:08 Last Admin: 03/13/25 07:55 Dose: 75 mg Documented By: Admin: 03/12/25 07:56 Dose: 75 mg Documented By: Admin: 03/11/25 08:01 Dose: 75 mg Documented By: Admin: 03/10/25 08:48 Dose: 75 mg Documented By: Admin: 03/09/25 07:40 Dose: 75 mg Documented By: Admin: 03/08/25 15:54 Dose: 75 mg Documented By: KYLEIGH Enoxaparin Sodium (Enoxaparin Inj 40 Mg/0.4 Ml Syr) 40 mg SQ Q24H [facility] Stop: 04/07/25 14:08 Last Admin: 03/12/25 13:33 Dose: 40 mg Documented By: Admin: 03/11/25 14:12 Dose: 40 mg Documented By: Admin: 03/10/25 14:31 Dose: 40 mg Documented By: Admin: 03/09/25 13:11 Dose: 40 mg Documented By: Admin: 03/08/25 15:55 Dose: 40 mg Documented By: KYLEIGH Fluoxetine HCl (Fluoxetine Hcl 20 Mg Cap) 40 mg PO DAILY [facility] Stop: 04/07/25 14:08 Last Admin: 03/13/25 07:54 Dose: 40 mg Documented By: Admin: 03/12/25 08:57 Dose: 40 mg Documented By: Admin: 03/11/25 08:02 Dose: 40 mg Documented By: Admin: 03/10/25 08:48 Dose: 40 mg Documented By: Admin: 03/09/25 07:40 Dose: 40 mg Documented By: Admin: 03/08/25 15:54 Dose: 40 mg Documented By: KYLEIGH Gabapentin (Gabapentin 100 Mg Cap) 200 mg PO HS [facility] Stop: 04/11/25 20:59 Last Admin: 03/12/25 19:22 Dose: 200 mg Documented By: MADELINE Insulin Aspart (Insulin Aspart Per Unit Charge) 0 units SC ACHS [facility] Stop: 04/07/25 14:08 Last Admin: 03/13/25 12:37 Dose: 3 units Documented By: GENEVIEVE Co-signed By: VALENTE Admin: 03/13/25 07:58 Dose: Not Given Documented By: Admin: 03/12/25 20:59 Dose: Not Given Documented By: Admin: 03/12/25 16:42 Dose: Not Given Documented By: Admin: 03/12/25 12:13 Dose: Not Given Documented By: RRAbraham Admin: 03/12/25 08:13 Dose: 3 units Documented By: SHANTA Co-signed By: AAJimenez Admin: 03/11/25 21:31 Dose: Not Given Documented By: Admin: 03/11/25 17:02 Dose: 3 units Documented By: SHANTA Co-signed By: HE Admin: 03/11/25 12:01 Dose: 3 units Documented By: SHANTA Co-signed By: AA Admin: 03/11/25 08:00 Dose: 3 units Documented By: SHANTA Co-signed By: RAMILA Admin: 03/10/25 21:39 Dose: Not Given Documented By: Admin: 03/10/25 16:56 Dose: Not Given Documented By: Admin: 03/10/25 12:14 Dose: 2 units Documented By: SHANTA Co-signed By: SUE Admin: 03/10/25 08:52 Dose: 3 units Documented By: SHANTA Co-signed By: SUE Admin: 03/09/25 21:44 Dose: Not Given Documented By: TOYA Co-signed By: CRISTY Admin: 03/09/25 17:19 Dose: Not Given Documented By: Admin: 03/09/25 13:05 Dose: 2 units Documented By: TOBI Co-signed By: RASHMI Admin: 03/09/25 07:45 Dose: Not Given Documented By: Admin: 03/08/25 20:53 Dose: Not Given Documented By: Admin: 03/08/25 17:55 Dose: Not Given Documented By: Admin: 03/08/25 14:31 Dose: Not Given Documented By: ARS Levothyroxine Sodium (Levothyroxine Sodium 125 Mcg Tablet) 125 mcg PO DAILYBB [facility]IVAN Stop: 04/08/25 06:29 Last Admin: 03/13/25 06:14 Dose: 125 mcg Documented By: Admin: 03/12/25 05:29 Dose: 125 mcg Documented By: Admin: 03/11/25 05:34 Dose: 125 mcg Documented By: Admin: 03/10/25 06:35 Dose: 125 mcg Documented By: Admin: 03/09/25 06:22 Dose: 125 mcg Documented By: SUE Mirtazapine (Mirtazapine Tab 15 Mg Tab) 7.5 mg PO HS SIVAN Stop: 04/08/25 20:59 Last Admin: 03/12/25 19:22 Dose: 7.5 mg Documented By: Admin: 03/11/25 19:57 Dose: 7.5 mg Documented By: Admin: 03/10/25 20:21 Dose: 7.5 mg Documented By: Admin: 03/09/25 20:01 Dose: 7.5 mg Documented By: TOYA Nystatin (Nystatin Powder 15gm Btl) 1 appln EXT BID [facility] Stop: 04/12/25 08:59 Last Admin: 03/13/25 07:55 Dose: 1 appln Documented By: GENEVIEVE Vitamin D (Cholecalciferol 25 Mcg (1000 Units) Tab) 25 mcg PO DAILY [facility] Stop: 04/08/25 08:59 Last Admin: 03/13/25 07:55 Dose: 25 mcg Documented By: Admin: 03/12/25 07:55 Dose: 25 mcg Documented By: Admin: 03/11/25 08:01 Dose: 25 mcg Documented By: Admin: 03/10/25 08:48 Dose: 25 mcg Documented By: Admin: 03/09/25 07:40 Dose: 25 mcg Documented By: TOBI
--- NOTE | 2025-03-14 13:23 | Hospitalist Progress Note ---
Date of Service March 14, 2025 Assessment & Plan (1) Fall: (2) Mild vascular neurocognitive disorder: (3) Diabetes: (4) HTN (hypertension): (5) Hyperlipidemia: (6) Hypothyroidism: (7) Depression: (8) Anxiety: Plan 79 year old female with PMH significant for CVA (2017), expressive aphasia, memory impairment, mild vascular neurocognitive disorder, DMII, HTN, HLD, hypothyroidism, osteoporosis, MDD, anxiety, and macular degeneration who presented to the ED today after having a fall at home yesterday. Fall -Likely mechanical in nature due to sister's history of carpet being messed up and walker tipped over -Head CT without acute findings - SAH from fall in January is resolved, old infarct is unchanged Plan: -PT and OT consulted -Case management consult for SNF placement at discharge -medically stable for discharge History of CVA Mild vascular neurocognitive disorder Memory impairment -Continue plavix per home dosing -Patient follows with Neurology and was seen on 03/06 for follow up after her fall in January and for memory issues -Neurology does not feel that patient is safe to live at home alone -Patient's sister is POA and agreeable to SNF placement -Scheduled MRI on 03/28 and follow up appointment on 04/17 with Neurology for ongoing concerns about memory -Scheduled appointment on 03/20 with Ortho for cast removal from previous fall DMII -On metformin at home - holding while inpt -SSI while inpatient HTN -Not currently on antihypertensives HLD -Continue statin per home dosing Hypothyroidism -Continue levothyroxine per home dosing Depression Anxiety -Continue wellbutrin, fluoxetine -continue mirtazapine to 7.5mg at beddtime for sedating properties -stop ativan today, downtitrate gabapentin again today to 100 mg at nightime, stop completely in next few days I spent a total of 45 minutes in direct patient care, including [id number] time with the patient and/or family, reviewing medical records, ordering and reviewing diagnostic tests, and coordinating care with other healthcare providers. This time includes: history taking, physical examination, medical decision making, counseling, ECG interpretation, imaging interpretation, lab interpretation, orders, and education, excluding time spent in the performance of separately billed services. Admission and Anticipated Discharge Date Admission Date: March 08, 2025 Subjective Patient comfortable today and has no concerns at this time. Review of Systems Review of Systems: -unable to answer ROS due to mental stat us Physical Exam Physical Exam: Gen: A&O 1 NAD HEENT: NCAT, EOMI, not icteric. External ears normal. No rhinorrhea. Moist mucous membranes. Neck: Supple, full range of motion, no observable masses, No meningeal sign. Lungs: No Respiratory distress. CV: RRR, no edema. Abdomen: Soft, nondistended, No rebound tenderness. MSK: No joint swelling, no redness. Skin: No rashes, petechiae, lesions. Normal color per patient. Neuro: Normal Gait, Grossly intact. Results & Data Results & Data Vital Signs (Past 12 Hours) Vital Signs Temp Pulse Resp BP Pulse Ox O2 Del Method 03/14/25 07:48 36.8 C 63 16 151/79 H 95 Room Air Medications Administered Acetaminophen (Acetaminophen 325 Mg Tab) 650 mg PO Q4H PRN PRN Reason: pain/fever Stop: 04/07/25 14:08 Last Admin: 03/11/25 15:07 Dose: 650 mg Documented By: Admin: 03/10/25 14:31 Dose: 650 mg Documented By: SHANTA Atorvastatin Calcium (Atorvastatin 40 Mg Tab) 40 mg PO [facility] Stop: 04/07/25 14:08 Last Admin: 03/14/25 09:03 Dose: 40 mg Documented By: Admin: 03/13/25 07:54 Dose: 40 mg Documented By: Admin: 03/12/25 07:55 Dose: 40 mg Documented By: Admin: 03/11/25 08:01 Dose: 40 mg Documented By: Admin: 03/10/25 08:48 Dose: 40 mg Documented By: Admin: 03/09/25 07:41 Dose: 40 mg Documented By: Admin: 03/08/25 15:54 Dose: 40 mg Documented By: KYLEIGH Bupropion HCl (Bupropion Xl 300 Mg Tabcr) [facility] [place] Stop: 04/07/25 14:08 Last Admin: 03/14/25 09:04 Dose: 300 mg Documented By: Admin: 03/13/25 07:55 Dose: 300 mg Documented By: Admin: 03/12/25 07:56 Dose: 300 mg Documented By: Admin: 03/11/25 08:02 Dose: 300 mg Documented By: Admin: 03/10/25 08:48 Dose: 300 mg Documented By: Admin: 03/09/25 07:40 Dose: 300 mg Documented By: Admin: 03/08/25 15:54 Dose: 300 mg Documented By: KYLEIGH Clopidogrel Bisulfate (Clopidogrel Bisulfate 75 Mg Tab) 75 mg PO QAM SIVAN Stop: 04/07/25 14:08 Last Admin: 03/14/25 09:03 Dose: 75 mg Documented By: Admin: 03/13/25 07:55 Dose: 75 mg Documented By: Admin: 03/12/25 07:56 Dose: 75 mg Documented By: Admin: 03/11/25 08:01 Dose: 75 mg Documented By: Admin: 03/10/25 08:48 Dose: 75 mg Documented By: Admin: 03/09/25 07:40 Dose: 75 mg Documented By: Admin: 03/08/25 15:54 Dose: 75 mg Documented By: KYLEIGH Enoxaparin Sodium (Enoxaparin Inj 40 Mg/0.4 Ml Syr) 40 mg SQ Q24H SIVAN Stop: 04/07/25 14:08 Last Admin: 03/13/25 15:33 Dose: Not Given Documented By: Admin: 03/12/25 13:33 Dose: 40 mg Documented By: Admin: 03/11/25 14:12 Dose: 40 mg Documented By: Admin: 03/10/25 14:31 Dose: 40 mg Documented By: Admin: 03/09/25 13:11 Dose: 40 mg Documented By: Admin: 03/08/25 15:55 Dose: 40 mg Documented By: KYLEIGH Fluoxetine HCl (Fluoxetine Hcl 20 Mg Cap) 40 mg PO DAILY SIVAN Stop: 04/07/25 14:08 Last Admin: 03/14/25 09:03 Dose: 40 mg Documented By: Admin: 03/13/25 07:54 Dose: 40 mg Documented By: Admin: 03/12/25 08:57 Dose: 40 mg Documented By: Admin: 03/11/25 08:02 Dose: 40 mg Documented By: Admin: 03/10/25 08:48 Dose: 40 mg Documented By: Admin: 03/09/25 07:40 Dose: 40 mg Documented By: Admin: 03/08/25 15:54 Dose: 40 mg Documented By: KYLEIGH Gabapentin (Gabapentin 100 Mg Cap) 200 mg PO HS SIVAN Stop: 04/11/25 20:59 Last Admin: 03/13/25 21:15 Dose: 200 mg Documented By: Admin: 03/12/25 19:22 Dose: 200 mg Documented By: MADELINE Insulin Aspart (Insulin Aspart Per Unit Charge) 0 units SC ACHS SIVAN Stop: 04/07/25 14:08 Last Admin: 03/14/25 13:08 Dose: Not Given Documented By: Admin: 03/14/25 08:29 Dose: Not Given Documented By: Admin: 03/13/25 21:12 Dose: Not Given Documented By: ISIDRO Co-signed By: CINDY Admin: 03/13/25 16:56 Dose: Not Given Documented By: Admin: 03/13/25 12:37 Dose: 3 units Documented By: GENEVIEVE Co-signed By: [facility] Admin: 03/13/25 07:58 Dose: Not Given Documented By: Admin: 03/12/25 20:59 Dose: Not Given Documented By: Admin: 03/12/25 16:42 Dose: Not Given Documented By: Admin: 03/12/25 12:13 Dose: Not Given Documented By: Admin: 03/12/25 08:13 Dose: 3 units Documented By: SHANTA Co-signed By: ROSA Admin: 03/11/25 21:31 Dose: Not Given Documented By: Admin: 03/11/25 17:02 Dose: 3 units Documented By: SHANTA Co-signed By: HE Admin: 03/11/25 12:01 Dose: 3 units Documented By: SHANTA Co-signed By: AA Admin: 03/11/25 08:00 Dose: 3 units Documented By: SHANTA Co-signed By: RAMILA Admin: 03/10/25 21:39 Dose: Not Given Documented By: Admin: 03/10/25 16:56 Dose: Not Given Documented By: Admin: 03/10/25 12:14 Dose: 2 units Documented By: SHANTA Co-signed By: SUE Admin: 03/10/25 08:52 Dose: 3 units Documented By: SHANTA Co-signed By: SUE Admin: 03/09/25 21:44 Dose: Not Given Documented By: TOYA Co-signed By: CRISTY Admin: 03/09/25 17:19 Dose: Not Given Documented By: Admin: 03/09/25 13:05 Dose: 2 units Documented By: TOBI Co-signed By: RASHMI Admin: 03/09/25 07:45 Dose: Not Given Documented By: Admin: 03/08/25 20:53 Dose: Not Given Documented By: Admin: 03/08/25 17:55 Dose: Not Given Documented By: Admin: 03/08/25 14:31 Dose: Not Given Documented By: JOSH Levothyroxine Sodium (Levothyroxine Sodium 125 Mcg Tablet) 125 mcg PO DAILY SIVAN Stop: 04/08/25 06:29 Last Admin: 03/14/25 05:24 Dose: 125 mcg Documented By: Admin: 03/13/25 06:14 Dose: 125 mcg Documented By: Admin: 03/12/25 05:29 Dose: 125 mcg Documented By: Admin: 03/11/25 05:34 Dose: 125 mcg Documented By: Admin: 03/10/25 06:35 Dose: 125 mcg Documented By: Admin: 03/09/25 06:22 Dose: 125 mcg Documented By: SUE Mirtazapine (Mirtazapine Tab 15 Mg Tab) 7.5 mg PO HS SIVAN Stop: 04/08/25 20:59 Last Admin: 03/13/25 21:13 Dose: 7.5 mg Documented By: Admin: 03/12/25 19:22 Dose: 7.5 mg Documented By: Admin: 03/11/25 19:57 Dose: 7.5 mg Documented By: Admin: 03/10/25 20:21 Dose: 7.5 mg Documented By: Admin: 03/09/25 20:01 Dose: 7.5 mg Documented By: TOYA Nystatin (Nystatin Powder 15gm Btl) 1 appln EXT BID SIVAN Stop: 04/12/25 08:59 Last Admin: 03/14/25 09:04 Dose: 1 appln Documented By: Admin: 03/13/25 21:13 Dose: 1 appln Documented By: Admin: 04/28/25 07:55 Dose: 1 appln Documented By: GENEVIEVE Vitamin D (Cholecalciferol 25 Mcg (1000 Units) Tab) 25 mcg PO DAILY SIVAN Stop: 04/08/25 08:59 Last Admin: 03/14/25 09:04 Dose: 25 mcg Documented By: Admin: 03/13/25 07:55 Dose: 25 mcg Documented By: Admin: 03/12/25 07:55 Dose: 25 mcg Documented By: Admin: 03/11/25 08:01 Dose: 25 mcg Documented By: Admin: 03/10/25 08:48 Dose: 25 mcg Documented By: Admin: 03/09/25 07:40 Dose: 25 mcg Documented By: TOBI
[2025-03-14] MEDS: GABAPENTIN 100 MG CAP PO SCH (20:16)
[2025-03-15 08:13] LABS: Albumin Globulin Ratio 1.9 (0.9-2); Albumin Level 3.9 gm/dl (3.4-5.0); BUN Creatinine Ratio 24.7 (10-20); Bilirubin,Total 0.5 mg/dl (0.2-1.0); Calcium 8.5 mg/dl (8.6-10.3); Creatinine Clr Calc Pharmacy 57.5 ml/min; Globulin 2.1 gm/dl (2.5-4.0); Potassium 4.1 mmol/L (3.5-5.1)
--- NOTE | 2025-03-15 14:40 | Hospitalist Progress Note ---
Date of Service March 15, 2025 Assessment & Plan (1) Fall: (2) Mild vascular neurocognitive disorder: (3) Diabetes: (4) HTN (hypertension): (5) Hyperlipidemia: (6) Hypothyroidism: (7) Depression: (8) Anxiety: Plan 79 year old female with PMH significant for CVA (2017), expressive aphasia, memory impairment, mild vascular neurocognitive disorder, DMII, HTN, HLD, hypothyroidism, osteoporosis, MDD, anxiety, and macular degeneration who presented to the ED after having a fall at home yesterday. Fall -Likely mechanical in nature due to sister's history of carpet being messed up and walker tipped over -Head CT without acute findings - SAH from fall in January is resolved, old infarct is unchanged Plan: -PT and OT consulted -Case management consult for SNF placement at discharge -medically stable for discharge History of CVA Mild vascular neurocognitive disorder Memory impairment -Continue plavix per home dosing -Patient follows with Neurology and was seen on 03/06 for follow up after her fall in January and for memory issues -Neurology does not feel that patient is safe to live at home alone -Patient's sister is POA and agreeable to SNF placement -Scheduled MRI on 03/28 and follow up appointment on 04/17 with Neurology for ongoing concerns about memory -Scheduled appointment on 03/20 with Ortho for cast removal from previous fall DMII -On metformin at home - holding while inpt -SSI while inpatient HTN -Not currently on antihypertensives HLD -Continue statin per home dosing Hypothyroidism -Continue levothyroxine per home dosing Depression Anxiety -Continue wellbutrin, fluoxetine -continue mirtazapine to 7.5mg at beddtime for sedating properties -stopped ativan this admission, downtitrated gabapentin again to 100 mg at nightime, stop completely in next few days Admission and Anticipated Discharge Date Admission Date: March 08, 2025 Subjective Patient comfortable and has no concerns at this time. She states she would like to go home. Per RN, pt eating ok, bm yesterday, no issues overnight. Physical Exam Physical Exam: Gen: A&O 1 NAD HEENT: NCAT, EOMI, not icteric. External ears normal. No rhinorrhea. Moist mucous membranes. Neck: Supple, full range of motion, no observable masses, No meningeal sign. Lungs: No Respiratory distress. CV: RRR, no edema. Abdomen: Soft, nondistended, No rebound tenderness. MSK: No joint swelling, no redness. Skin: No rashes, petechiae, lesions. Normal color per patient. Neuro: Normal Gait, Grossly intact. Results & Data Results & Data Vital Signs (Past 12 Hours) Vital Signs Temp Pulse Resp BP Pulse Ox O2 Del Method 03/15/25 07:17 36.7 C 58 L 16 144/74 H 96 Room Air
--- NOTE | 2025-03-16 15:40 | Hospitalist Progress Note ---
Date of Service March 16, 2025 Assessment & Plan (1) Fall: (2) Mild vascular neurocognitive disorder: (3) Diabetes: (4) HTN (hypertension): (5) Hyperlipidemia: (6) Hypothyroidism: (7) Depression: (8) Anxiety: Plan 79 year old female with PMH significant for CVA (2017), expressive aphasia, memory impairment, mild vascular neurocognitive disorder, DMII, HTN, HLD, hypothyroidism, osteoporosis, MDD, anxiety, and macular degeneration who presented to the ED after having a fall at home yesterday. Fall -Likely mechanical in nature due to sister's history of carpet being messed up and walker tipped over -Head CT without acute findings - SAH from fall in January is resolved, old infarct is unchanged Plan: -PT and OT consulted -Case management consult for SNF placement at discharge -medically stable for discharge History of CVA Mild vascular neurocognitive disorder Memory impairment -Continue plavix per home dosing -Patient follows with Neurology and was seen on 03/06 for follow up after her fall in January and for memory issues -Neurology does not feel that patient is safe to live at home alone -Patient's sister is POA and agreeable to SNF placement -Scheduled MRI on 03/28 and follow up appointment on 04/17 with Neurology for ongoing concerns about memory -Scheduled appointment on 03/20 with Ortho for cast removal from previous fall DMII -On metformin at home - holding while inpt -SSI while inpatient HTN -Not currently on antihypertensives HLD -Continue statin per home dosing Hypothyroidism -Continue levothyroxine per home dosing Depression Anxiety -Continue wellbutrin, fluoxetine -continue mirtazapine to 7.5mg at beddtime for sedating properties -stopped ativan this admission, downtitrated gabapentin again to 100 mg at nightime, stop completely in next few days stable for dc, awaiting auth. Admission and Anticipated Discharge Date Admission Date: March 08, 2025 Subjective Patient comfortable and has no concerns at this time. She states she would like to go home. Denies any complaints. Physical Exam Physical Exam: Gen: A&O 1 NAD HEENT: NCAT, EOMI, not icteric. External ears normal. No rhinorrhea. Moist mucous membranes. Neck: Supple, full range of motion, no observable masses, No meningeal sign. Lungs: No Respiratory distress. CV: RRR, no edema. Abdomen: Soft, nondistended, No rebound tenderness. MSK: No joint swelling, no redness. Skin: No rashes, petechiae, lesions. Normal color per patient. Neuro: Normal Gait, Grossly intact. Results & Data Results & Data Vital Signs (Past 12 Hours) Vital Signs Temp Pulse Resp BP Pulse Ox O2 Del Method 03/16/25 07:15 36.6 C 61 16 135/72 96 Room Air
--- NOTE | 2025-03-17 16:26 | Hospitalist Progress Note ---
Date of Service March 17, 2025 Assessment & Plan (1) Fall: (2) Mild vascular neurocognitive disorder: (3) Diabetes: (4) HTN (hypertension): (5) Hyperlipidemia: (6) Hypothyroidism: (7) Depression: (8) Anxiety: Plan 79 year old female with PMH significant for CVA (2017), expressive aphasia, memory impairment, mild vascular neurocognitive disorder, DMII, HTN, HLD, hypothyroidism, osteoporosis, MDD, anxiety, and macular degeneration who presented to the ED after having a fall at home yesterday. Fall -Likely mechanical in nature due to sister's history of carpet being messed up and walker tipped over -Head CT without acute findings - SAH from fall in January is resolved, old infarct is unchanged Plan: -PT and OT consulted -Case management consult for SNF placement at discharge -medically stable for discharge History of CVA Mild vascular neurocognitive disorder Memory impairment -Continue plavix per home dosing -Patient follows with Neurology and was seen on 03/06 for follow up after her fall in January and for memory issues -Neurology does not feel that patient is safe to live at home alone -Patient's sister is POA and agreeable to SNF placement -Scheduled MRI on 03/28 and follow up appointment on 04/17 with Neurology for ongoing concerns about memory -Scheduled appointment on 03/20 with Ortho for cast removal from previous fall DMII -On metformin at home - holding while inpt -SSI while inpatient HTN -Not currently on antihypertensives HLD -Continue statin per home dosing Hypothyroidism -Continue levothyroxine per home dosing Depression Anxiety -Continue wellbutrin, fluoxetine -continue mirtazapine to 7.5mg at beddtime for sedating properties -stopped ativan this admission, downtitrated gabapentin again to 100 mg at nightime, stop completely in next few days stable for dc, awaiting auth. P2P performed (total of 20 min spent in the process), snf declined. total time spent: 53 min. Admission and Anticipated Discharge Date Admission Date: March 08, 2025 Subjective Patient comfortable and has no concerns at this time. She states she would like to go home. Denies any complaints. Physical Exam Physical Exam: Gen: A&O 1 NAD HEENT: NCAT, EOMI, not icteric. External ears normal. No rhinorrhea. Moist mucous membranes. Neck: Supple, full range of motion, no observable masses, No meningeal sign. Lungs: No Respiratory distress. CV: RRR, no edema. Abdomen: Soft, nondistended, No rebound tenderness. MSK: No joint swelling, no redness. Skin: No rashes, petechiae, lesions. Normal color per patient. Neuro: Normal Gait, Grossly intact. Results & Data Results & Data Vital Signs (Past 12 Hours) Vital Signs Temp Pulse Pulse Resp BP Pulse Ox O2 Del Method 03/17/25 14:54 03/17/25 14:02 36.8 C 66 16 130/70 96 Room Air 03/17/25 07:20 36.9 C 64 16 124/74 97 Room Air O2 Flow Rate 03/17/25 14:54 0 03/17/25 14:02 03/17/25 07:20
[2025-03-18] MEDS: ONDANSETRON 4 MG OD TAB PO STA (13:01)
[2025-03-18] MEDS ORDERED: ONDANSETRON 4 MG OD TAB PO PRN (13:22)
--- NOTE | 2025-03-18 16:30 | Hospitalist Progress Note ---
Date of Service March 18, 2025 Assessment & Plan (1) Fall: (2) Mild vascular neurocognitive disorder: (3) Diabetes: (4) HTN (hypertension): (5) Hyperlipidemia: (6) Hypothyroidism: (7) Depression: (8) Anxiety: Plan 79 year old female with PMH significant for CVA (2017), expressive aphasia, memory impairment, mild vascular neurocognitive disorder, DMII, HTN, HLD, hypothyroidism, osteoporosis, MDD, anxiety, and macular degeneration who presented to the ED after having a fall at home yesterday. Fall -Likely mechanical in nature due to sister's history of carpet being messed up and walker tipped over -Head CT without acute findings - SAH from fall in January is resolved, old infarct is unchanged Plan: -PT and OT consulted -Case management consult for SNF placement at discharge -medically stable for discharge History of CVA Mild vascular neurocognitive disorder Memory impairment -Continue plavix per home dosing -Patient follows with Neurology and was seen on 03/06 for follow up after her fall in January and for memory issues -Neurology does not feel that patient is safe to live at home alone -Patient's sister is POA and agreeable to SNF placement -Scheduled MRI on 03/28 and follow up appointment on 04/17 with Neurology for ongoing concerns about memory -Scheduled appointment on 03/20 with Ortho for cast removal from previous fall DMII -On metformin at home - holding while inpt -SSI while inpatient HTN -Not currently on antihypertensives HLD -Continue statin per home dosing Hypothyroidism -Continue levothyroxine per home dosing Depression Anxiety -Continue wellbutrin, fluoxetine -continue mirtazapine to 7.5mg at beddtime for sedating properties -stopped ativan this admission, downtitrated gabapentin again to 100 mg at nightime, stop completely in next few days stable for dc, awaiting auth. P2P performed 03/17 , snf declined. Admission and Anticipated Discharge Date Admission Date: March 08, 2025 Subjective Patient comfortable and has no concerns at this time. Denies any complaints. Physical Exam Physical Exam: Gen: A&O 1 NAD HEENT: NCAT, EOMI, not icteric. External ears normal. No rhinorrhea. Moist mucous membranes. Neck: Supple, full range of motion, no observable masses, No meningeal sign. Lungs: No Respiratory distress. CV: RRR, no edema. Abdomen: Soft, nondistended, No rebound tenderness. MSK: No joint swelling, no redness. Skin: No rashes, petechiae, lesions. Normal color per patient. Neuro: Normal Gait, Grossly intact. Results & Data Results & Data Vital Signs (Past 12 Hours) Vital Signs Temp Pulse Pulse Resp BP Pulse Ox O2 Del Method 03/18/25 15:33 36.9 C 61 16 123/73 95 Room Air 03/18/25 07:24 36.4 C L 63 18 153/73 H 96 Room Air
--- NOTE | 2025-03-19 15:50 | Hospitalist Progress Note ---
Date of Service March 19, 2025 Assessment & Plan (1) Fall: (2) Mild vascular neurocognitive disorder: (3) Diabetes: (4) HTN (hypertension): (5) Hyperlipidemia: (6) Hypothyroidism: (7) Depression: (8) Anxiety: Plan 79 year old female with PMH significant for CVA (2017), expressive aphasia, memory impairment, mild vascular neurocognitive disorder, DMII, HTN, HLD, hypothyroidism, osteoporosis, MDD, anxiety, and macular degeneration who presented to the ED after having a fall at home yesterday. Fall -Likely mechanical in nature due to sister's history of carpet being messed up and walker tipped over -Head CT without acute findings - SAH from fall in January is resolved, old infarct is unchanged Plan: -PT and OT consulted -Case management consult for SNF placement at discharge -medically stable for discharge History of CVA Mild vascular neurocognitive disorder Memory impairment -Continue plavix per home dosing -Patient follows with Neurology and was seen on 03/06 for follow up after her fall in January and for memory issues -Neurology does not feel that patient is safe to live at home alone -Patient's sister is POA and agreeable to SNF placement -Scheduled MRI on 03/28 and follow up appointment on 04/17 with Neurology for ongoing concerns about memory -Scheduled appointment on 03/20 with Ortho for cast removal from previous fall DMII -On metformin at home - holding while inpt -SSI while inpatient HTN -Not currently on antihypertensives HLD -Continue statin per home dosing Hypothyroidism -Continue levothyroxine per home dosing Depression Anxiety -Continue wellbutrin, fluoxetine -continue mirtazapine to 7.5mg at beddtime for sedating properties -stopped ativan this admission, downtitrated gabapentin again to 100 mg at nightime, stop completely in next few days stable for dc, awaiting auth. P2P performed 03/17 , snf declined. Admission and Anticipated Discharge Date Admission Date: March 08, 2025 Subjective Patient comfortable and has no concerns at this time. Denies any complaints. Physical Exam Physical Exam: Gen: A&O 1 NAD HEENT: NCAT, EOMI, not icteric. External ears normal. No rhinorrhea. Moist mucous membranes. Neck: Supple, full range of motion, no observable masses, No meningeal sign. Lungs: No Respiratory distress. CV: RRR, no edema. Abdomen: Soft, nondistended, No rebound tenderness. MSK: No joint swelling, no redness. Skin: No rashes, petechiae, lesions. Normal color per patient. Neuro: Normal Gait, Grossly intact. Results & Data Results & Data Vital Signs (Past 12 Hours) Vital Signs Temp Pulse Resp BP Pulse Ox O2 Del Method 03/19/25 15:28 36.7 C 72 16 124/80 97 Room Air 03/19/25 07:11 36.9 C 62 16 135/84 95 Room Air
--- NOTE | 2025-03-20 15:58 | Hospitalist Progress Note ---
Date of Service March 20, 2025 Assessment & Plan (1) Fall: (2) Mild vascular neurocognitive disorder: (3) Diabetes: (4) HTN (hypertension): (5) Hyperlipidemia: (6) Hypothyroidism: (7) Depression: (8) Anxiety: Plan 79 year old female with PMH significant for CVA (2017), expressive aphasia, memory impairment, mild vascular neurocognitive disorder, DMII, HTN, HLD, hypothyroidism, osteoporosis, MDD, anxiety, and macular degeneration who presented to the ED after having a fall at home yesterday. Fall -Likely mechanical in nature due to sister's history of carpet being messed up and walker tipped over -Head CT without acute findings - SAH from fall in January is resolved, old infarct is unchanged Plan: -PT and OT consulted -Case management consult for SNF placement at discharge -medically stable for discharge History of CVA Mild vascular neurocognitive disorder Memory impairment -Continue plavix per home dosing -Patient follows with Neurology and was seen on 03/06 for follow up after her fall in January and for memory issues -Neurology does not feel that patient is safe to live at home alone -Patient's sister is POA and agreeable to SNF placement -Scheduled MRI on 03/28 and follow up appointment on 04/17 with Neurology for ongoing concerns about memory -Scheduled appointment on 03/20 with Ortho for cast removal from previous fall DMII -On metformin at home - holding while inpt -SSI while inpatient HTN -Not currently on antihypertensives HLD -Continue statin per home dosing Hypothyroidism -Continue levothyroxine per home dosing Depression Anxiety -Continue wellbutrin, fluoxetine -continue mirtazapine to 7.5mg at beddtime for sedating properties -stopped ativan this admission, downtitrated gabapentin again to 100 mg at nightime, stop completely in next few days stable for dc, awaiting auth. P2P performed 03/17 , snf declined. Admission and Anticipated Discharge Date Admission Date: March 08, 2025 Subjective Patient comfortable and has no concerns at this time. Denies any complaints. Physical Exam Physical Exam: Gen: A&O 1 NAD HEENT: NCAT, EOMI, not icteric. External ears normal. No rhinorrhea. Moist mucous membranes. Neck: Supple, full range of motion, no observable masses, No meningeal sign. Lungs: No Respiratory distress. CV: RRR, no edema. Abdomen: Soft, nondistended, No rebound tenderness. MSK: No joint swelling, no redness. Skin: No rashes, petechiae, lesions. Normal color per patient. Neuro: Normal Gait, Grossly intact. Results & Data Results & Data Vital Signs (Past 12 Hours) Vital Signs Temp Pulse Resp BP Pulse Ox O2 Del Method 03/20/25 15:48 36.6 C 71 16 126/76 97 Room Air 03/20/25 07:48 36.7 C 60 16 124/66 95 Room Air
[2025-03-20 19:49] VITALS: O2SAT 96
[2025-03-21 07:17] VITALS: RESP 16; TEMP 98.4
--- NOTE | 2025-03-21 08:31 | Discharge Summary ---
Date of Service March 21, 2025 Admission HPI Per Admitting Provider 79 year old female with PMH significant for history of CVA (2017), expressive aphasia, memory impairment, mild vascular neurocognitive disorder, DMII, HTN, HLD, hypothyroidism, osteoporosis, MDD, anxiety, and macular degeneration who presented to the ED today after having a fall at home yesterday. Patient is unable to provide history due to cognitive status. Patient's sister/POA provided history. She reports that she dropped the patient off at her apartment where she lives alone yesterday around 3pm. She returned this morning around 8am to take her to an appointment and found her on the ground in her living room in front of her chair. She reports that the carpet was messed up and her walker was tipped over on the ground. Patient was awake when she arrived and in the same clothes she was wearing yesterday suggesting that the fall happened sometime yesterday. She denies any incontinence. Patient reports that she feels good and denies chest pain and abdominal pain but unable to provide further review of systems. Of note, patient was seen by Neurology on Thursday for follow up after a fall that occurred on January 30 in a [employer] parking lot where she suffered a small volume SAH and small subdural hematoma, which resulted in admission to [facility] and discharge to [facility] for 1.5 weeks. Per review of note from Neurology, they feel she is not safe to live alone. Patient's sister/POA is agreeable to SNF placement at this time due to recurrent falls and concern for safety of patient. Admission Exam Per Admitting Provider General/Psych: WD/WN, sitting up in bed, NAD, conversing easily, disorganized thought process, euthymic affect Head: normocephalic, atraumatic Eyes: normal inspection, PERRL, conjunctivae pink, anicteric sclerae ENT: external ear and nose normal, oropharynx normal Neck: normal visual inspection, trachea midline, no thyromegaly Respiratory: normal respiratory effort, lungs clear to auscultation, no whe karolyn/rales/rhonchi, no accessory muscle use Cardiovascular: regular rate and rhythm, no murmur/rub/gallop, no JVD Extremities: no cyanosis or clubbing, normal peripheral pulses, no BLE edema, cast in place on right lower arm/wrist Abdomen/GI: normal bowel sounds, soft, nontender, no hepatosplenomegaly Neurologic/MSK: A+Ox3, CN's II-XI intact bilaterally, moves all extremities Skin: no rashes, normal color, warm and dry Principal Diagnosis Fall Memory impairment, history of Mild vascular neurocognitive disorder, history of CVA, history of Discharge Exam Gen: A&O 1 NAD HEENT: NCAT, EOMI, not icteric. External ears normal. No rhinorrhea. Moist mucous membranes. Neck: Supple, full range of motion, no observable masses, No meningeal sign. Lungs: No Respiratory distress. CV: RRR, no edema. Abdomen: Soft, nondistended, No rebound tenderness. MSK: No joint swelling, no redness. Skin: No rashes, petechiae, lesions. Normal color per patient. Neuro: Normal Gait, Grossly intact. Discharge Data Allergies Allergy/AdvReac Type Severity Reaction Status Date / Time sertraline Allergy Unknown CAN'T Verified 01/30/25 15:10 REMEMBER--ON [facility] MED LIST Sulfa (Sulfonamide Allergy Unknown CAN'T Verified 01/30/25 15:10 Antibiotics) REMEMBER-ON [facility] MED LIST simvastatin AdvReac Intermediate Muscle Pain Verified 01/30/25 15:10 Consultations 03/08/25 10:24 ED Decision to Admit Stat Ordered Studies 03/08/25 09:15 CT head/brain wo con Stat Hospital Course (1) Fall: (2) Mild vascular neurocognitive disorder: (3) Diabetes: (4) HTN (hypertension): (5) Hyperlipidemia: (6) Hypothyroidism: (7) Depression: (8) Anxiety: Plan 79 year old female with PMH significant for CVA (2016), expressive aphasia, memory impairment, mild vascular neurocognitive disorder, DMII, HTN, HLD, hypothyroidism, osteoporosis, MDD, anxiety, and macular degeneration who presented to the ED after having a fall at home yesterday. Fall -Likely mechanical in nature due to sister's history of carpet being messed up and walker tipped over -Head CT without acute findings - SAH from fall in January is resolved, old infarct is unchanged Plan: -PT and OT consulted -Case management consult for SNF placement at discharge -medically stable for discharge History of CVA Mild vascular neurocognitive disorder Memory impairment -Continue plavix per home dosing -Patient follows with Neurology and was seen on 03/06 for follow up after her fall in January and for memory issues -Neurology does not feel that patient is safe to live at home alone -Patient's sister is POA and agreeable to SNF placement -Scheduled MRI on 03/28 and follow up appointment on 04/17 with Neurology for ongoing concerns about memory -Scheduled appointment on 03/20 with Ortho for cast removal from previous fall DMII -On metformin at home - holding while inpt -SSI while inpatient HTN -Not currently on antihypertensives HLD -Continue statin per home dosing Hypothyroidism -Continue levothyroxine per home dosing Depression Anxiety -Continue wellbutrin, fluoxetine -continue mirtazapine to 7.5mg at beddtime for sedating properties -stopped ativan this admission, downtitrated gabapentin again to 100 mg at nightime, stop completely in next few days Patient is being discharged with following instructions at the point of discharge: Follow-up with your primary care physician within a week time and likely you will need labs CBC/CMP/magnesium/phosphorus. Follow-up with your scheduled MRI on 03/28/2025 and appointment with neurology on 04/17/2025 for ongoing concerns about memory. Follow-up with orthopedics next 1 to 2 days cast removal from previous fall. Take your medications as prescribed. Please make sure that you are able to get your medications today by calling your pharmacy before you leave the hospital so that your treatment continuity is not broken. Home Health Attestation I certify that this patient is under my care and that I, or a physicians finance assistant working with me, had a face to-face encounter that meets the home health [id number] encounter requirements with this patient. The encounter with the patient was in whole, or in part, for the following medical condition, which is the primary reason for home health care (list medical condition): I certify that, based on my findings, the following services are medically necessary home health services: My clinical findings support the need for the above services because: Further, I certify that my clinical findings support that this patient is homebound (i.e. absences from home require considerable and taxing effort and are for medical reasons or confucianist services or infrequently or of short duration when for other reasons) because: Certification for Home Health Services: Based on the above findings, I certify that this patient is confined to the home and needs intermittent fdc care, physical therapy and/or speech therapy or continues to need occupational therapy. The patient is under my care, and I have initiated the establishment of the plan of care. This patient will be followed by a physician who will periodically review the plan of care. Total Time Total Time Spent Total Time Spent (In Minutes): 35 Discharge Plan Discharge Items Patient Disposition: Transfer [facility] Fac Reason For Visit: FALL Discharge Diagnosis: Fall Memory impairment, history of Mild vascular neurocognitive disorder, history of CVA, history of Activity: Resume your previous activity Non-emergency contact: Primary Care Provider Call non-emergency contact if: you have any medication questions and your symptoms worsen Follow-up/Referrals: Janice Freeman PA-C [Primary Care Provider] - Diet: Carb Consistent or DM2 Addtl Attending Provider Instructions: Follow-up with your primary care physician within a week time and likely you will need labs CBC/CMP/magnesium/phosphorus. Follow-up with your scheduled MRI on 03/28/2025 and appointment with neurology on 04/17/2025 for ongoing concerns about memory. Follow-up with orthopedics next 1 to 2 days cast removal from previous fall. Take your medications as prescribed. Please make sure that you are able to get your medications today by calling your pharmacy before you leave the hospital so that your treatment continuity is not broken. Pending Studies at Discharge: No Stand-Alone Forms: My [facility] Skilled Items Patient informed of condition?: Yes DNR: Yes Discharge Level of Care: Skilled Communicable Disease: No Discharge Prognosis: Stable Lines: None Urinary Catheter: No Medications and DC Order Prescriptions: New gabapentin 100 mg Capsule 100 mg PO HS Qty: 30 0RF Continued fluoxetine 40 mg Capsule 40 mg PO DAILY metformin 500 mg Tablet Extended Release 24 Hr 1,000 mg PO UD Rx Instructions: 1000mg po BIDM. last filled 11/30 90 day supply PreserVision AREDS-2 [id number] [id number] Capsule 1 tab PO BID Rx Instructions: 03/08-otc unable to verify alendronate 70 mg tablet 70 mg PO WK sodium chloride 5 % Drops 1 drp OPB BID Rx Instructions: 03/08- otc unable to verify clopidogrel 75 mg tablet 75 mg PO QAM acetaminophen [Tylenol Extended Release] 650 mg Tablet Extended Release 650 mg PO Q8H PRN (Reason: Pain) Rx Instructions: 03/08-otc unable to verify hydrocortisone 2.5 % Lotion 1 applic TOPICAL DAILY PRN (Reason: ITCHY EAR CANAL NEEDED.) Rx Instructions: 03/08- otc unable to verify cholecalciferol (vitamin D3) [Vitamin D3] 25 mcg (1,000 unit) Capsule 25 mcg PO DAILY Rx Instructions: 03/08-otc unable to verify bupropion HCl 300 mg tablet extended release 24 hr 300 mg PO QAM Changed atorvastatin 40 mg Tablet 40 mg PO QAM Qty: 30 0RF Rx Instructions: 40 mg po qam. last filled 11/16/24 90 day supply mirtazapine 15 mg tablet 7.5 mg PO HS Qty: 15 0RF levothyroxine 125 mcg tablet 125 mcg PO DAILYBB Qty: 30 0RF Rx Instructions: 125mcg po dailybb. last filled 11/16/24 90 day supply Discontinued gabapentin 300 mg Capsule 300 mg PO HS lorazepam 1 mg Tablet 0.5 mg PO Q8H PRN (Reason: Anxiety) Discharge Orders: Discharge Order (Routine); Ordered 03/21/25 Ordered By: Qamar Leary Admission Data Admit Date/Time: 03/08/25 11:26 Attending Provider: Qamar Leary Admit Provider: Olga West Primary Care Provider: Janice Freeman Other Providers: Olga West; [place],[facility]; [facility]
[2025-03-21 08:56] VITALS: BP 134/77; PULSE 65
== END 2025-03-21 08:56 | DRG 93 ==
LOC: ED 09:04 → EDINP 11:26 → SUATTDRO 11:26 → 3E 14:10